=== PATIENT | female | born 1940 | race Caucasian/White ===

== ENCOUNTER → 2017-06-09 10:55 | Outpatient (CLI) | payer MEDICARE, SELFPAY | PROVIDERS: Family Provider Internal Medicine; PCP Internal Medicine; Visit Provider Physician Assistant Medical | DX: R00.1 Bradycardia, unspecified (principal); R42 Dizziness and giddiness; I48.91 Unspecified atrial fibrillation | CPT/HCPCS: 93225; 93226 ==

== ENCOUNTER → 2017-06-15 06:12 | Outpatient (CLI) | payer MEDICARE, SELFPAY ==
--- NOTE | 2017-06-15 09:22 | STRESSREP ---
Stress Test Report Pharmacologic myocardial perfusion stress test. 76-year-old lady with a history of chest pain and fatigue. Stress protocol: Resting EKG demonstrates sinus bradycardia with a rate of 41 bpm. Resting blood pressure is 160/86 centimeters of mercury. 0.4 mg of regadenoson was infused per usual protocol followed by rapid intravenous saline flush injection. Continuous EKG monitoring was performed. The maximum heart rate attained was 53 bpm which was 36% of the maximum predicted heart rate. The maximum workload was 1 metabolic equivalent. The patient maintained sinus rhythm throughout the recording. The resting blood pressure is 160/86 with a final blood pressure 130/68 mmHg. Myocardial perfusion protocol: 11.5 mCi of technetium 99m sestamibi was injected at rest. 0.4 mg of regadenoson was infused per usual protocol. At peak infusion 33.3 mCi of technetium 99m sestamibi was injected. Stress images were obtained. Stress and rest images were reconstructed and compared in the short axis vertical long and horizontal long axis. Gated images were also obtained. Perfusion SPECT analysis: Review of the stress images demonstrate normal uptake of tracer noted in all areas of the myocardium. The resting images similarly demonstrate normal uptake of tracer noted in all areas of the myocardium. No areas of reversibility are noted suggest ischemia no previous infarct is noted. Gated SPECT analysis: Gated ejection fraction is noted to be 68%. Conclusion: Normal pharmacologic myocardial perfusion stress test. Preserved ejection fraction
== END ==
PROVIDERS: Family Provider Internal Medicine; PCP Internal Medicine; Visit Provider Physician Assistant Medical
DX: I10 Essential (primary) hypertension (principal); R53.83 Other fatigue; R06.09 Other forms of dyspnea; I48.0 Paroxysmal atrial fibrillation
CPT/HCPCS: 78452; 93017; A9500; A4216; J2785

== ENCOUNTER → 2017-06-21 14:47 | Outpatient (CLI) | payer MEDICARE, SELFPAY ==
[2017-06-21 15:02] LABS: Bacteria 0 SEEN /hpf (None Seen); Mucous, Urine 0 SEEN /hpf (<or=2+); Red Blood Cells-Urine 0 SEEN /hpf (0-5)
[2017-06-21 16:22] LABS: Color, Urine Yellow (Yellow); Glucose, Dipstick Normal (Normal); Ketone-Dipstick Negative (Negative); Leukocyte Esterase-Dipstick 25 /ul (Negative); Nitrite-Dipstick Negative (Negative); Occult Blood-Urine Negative /ul (Negative); Protein-Dipstick Negative (Negative); Specific Gravity, Urine 1.015 (1.002-1.030); Urine Bilirubin Dipstick Negative (Negative); Urine Clarity Clear (Clear); Urine Urobilinogen Normal (Normal)
[2017-06-21 16:27] LABS: Hemoglobin 14.8 g/dl (12.0-15.0); Mean Corp Hgb Conc 33.6 g/gl (32-36); Mean Corpuscular Hgb 29.9 pg (27.0-32.0); Mean Corpuscular Volume 88.9 fL (81-99); Mean Platelet Vol. 10.5 fl (6.2-12.0); Platelet Count 171 K/mm3 (150-450); RBC Distribution Width CV 14.4 % (11.6-14.6); RBC Distribution Width SD 46.1 fl (35.1-43.9); Red Blood Count 4.95 M/mm3 (4.2-5.4); White Blood Count 7.2 K/mm3 (4.4-11.0)
[2017-06-21 16:31] LABS: Scan Indicated on CBC? Y/N NO
[2017-06-21 16:43] LABS: Squamous Epithelial Cells - UA 0-5 SEEN /hpf (5-10); White Blood Cells 0-5 SEEN /hpf (0-5)
[2017-06-21 16:53] LABS: Anion Gap 7 (5-15); BUN 20 mg/dL (7-18); BUN/Creat Ratio 22.9 RATIO (10-20); Chloride 104 mmol/L (98-107); Creatinine, Serum 0.87 mg/dL (0.55-1.02); EST Glomerular Filtration Rate 67 mL/min (>60); Est Glom Filt Rate - Afr Amer 81 mL/min (>60); Glucose 88 mg/dL (74-106); Potassium 3.9 mmol/L (3.5-5.1); Sodium Level 137 mmol/L (136-145)
[2017-06-21 17:00] LABS: Prothrombin Time (Protime)PT. 12.7 SECONDS (11.7-14.9)
== END ==
PROVIDERS: Family Provider Internal Medicine; PCP Internal Medicine; Visit Provider Internal Medicine Cardiovascular Disease
DX: I49.5 Sick sinus syndrome (principal)
CPT/HCPCS: 36415; 80048; 81001; 85027; 85610

== ENCOUNTER 2017-06-28 11:01 | Day surgery (SDC) | payer MEDICARE, SELFPAY ==
[2017-06-25 11:48] VITALS: BMI 29.4
[2017-06-28] VITALS (13 sets, daily range): BP systolic 124–188; BP diastolic 70–97; PULSE 60–64; RESP 16–18; TEMP 36.6–36.8; O2SAT 95–98
[2017-06-28] MEDS: Cefazolin 2 GM in 0.9% Normal Saline 100 ML IV (13:16)
--- NOTE | 2017-06-28 15:18 | CL.IE_ITS ---
Patient: MALI PATEL Study Date: 06/28/2017 Performing: Brennan Fleming MD : 1940 Age: 76 Gender: female PROCEDURES PERFORMED [id number] PACER INSERT+DUAL LEADS INDICATIONS Sinoatrial node dysfunction/Sick sinus syndrome Atrial fibrillation PROCEDURE DETAILS The patient was brought to the Catheterization Lab in the postabsorptive nonsedated state. Informed consent was obtained prior to the procedure. Local anesthetic was given subcutaneously to the left up per chest area with Lidocaine 2%. Incision was made to the left upper chest. Access was achieved and a guidewire was advanced into the left subclavian vein. A peel-away sheath was inserted into the left subclavian vein. PPM ventricular lead was inserted / positioned to right ventricular septal wall. A peel-away sheath was inserted into the left subclavian vein. PPM atrial lead was inserted / positione d to the right atrial appendage. PPM atrial lead testing performed. The Ventricular PM lead sutured i n place with 3-0 Silk. The Atrial lead sutured in place with 3-0 Silk. Device pocket was irrigated wi th antibiotic. PPM generator was attached to the lead(s) and inserted into the pocket. Subcutaneous c losure was completed with 4-0 Vicryl. Steri-strips applied to left subclavicular incision. Pressure d ressing applied to left chest. Instrument, sponge, and needle counts were noted to be normal. The pat ient tolerated the procedure well. Estimated Blood Loss: < 10 mls IMPLANTED / EX-PLANTED DEVICES IMPLANTED DEVICE(S): PPM Atrial lead - Dipper Machine Operator: Medtronic, Model # 5076-45 , Serial # [id number] PPM Ventricular lead - Dipper Machine Operator: [employer], Model # 5076-52 , Serial # [id number] PPM Generator - Dipper Machine Operator: [employer], Model # [id number] , Serial # [id number] DEVICE PARAMETERS ATRIAL LEAD PARAMETERS: P wave (mV) - 3 Current (mA) - 2.1 threshold (V) - 1.0 impedence (OHMS) - 563 VENTRICULAR LEAD PARAMETERS: R wave (mV) - 15.4 current (mA) - 1.0 threshold (V) - 1.1 impedence (OHMS) - 1244 DEVICE PARAMETERS: Mode - aair dddr lower rate - 60 upper rate - 130 CONCLUSIONS / RECOMMENDATIONS Device Conclusions: Successful implantation of a dual chamber pacemaker Device Recommendations: Follow up with Primary Care Physician PROCEDURE MEDICATIONS Versed 1 mg IV Fentanyl 25 mcg IV Fentanyl 25 mcg IV Fentanyl 25 mcg IV Antibiotic given in appropriate timeframe. Ancef 2 Gm IV @ 06/28/2017 13:16:41 Signed By Brennan Fleming MD On 06/28/2017 15:18:10 Brennan Fleming MD
[2017-06-28] MEDS: HYDROCHLOROTHIAZIDE 12.5 MG CAPSULE PO (16:09)
[2017-06-28] MEDS: Acetaminophen 325 MG Tablet 650 MG PO (19:01)
[2017-06-28] MEDS: Magnesium Oxide 400 MG Tablet PO (21:02)
[2017-06-28] MEDS: Flecainide 100 MG Tablet PO (21:03)
[2017-06-28] MEDS: Losartan Potassium 100 MG Tablet PO (21:03)
[2017-06-29] VITALS (7 sets, daily range): BP systolic 144–157; BP diastolic 72–79; PULSE 60–61; RESP 16; TEMP 36.4–36.6; O2SAT 94–99
[2017-06-29] MEDS: Acetaminophen 325 MG Tablet 650 MG PO ×2 (01:44→08:43)
--- NOTE | 2017-06-29 05:55 | RAD_ITS ---
STUDY: X-RAY CHEST REASON FOR EXAM: Female, 76 years old. Pacemaker placement TECHNIQUE: PA and lateral COMPARISON: 04/28/2017 FINDINGS: Pacemaker leads are in proper position. The lungs are clear and expanded. There is no demonstrated pleural abnormality. Normal size heart. Normal mediastinum and glenys. Normal visualized pulmonary arteries. Normal visualized aortic arch and descending thoracic aorta. Normal visualized thoracic spine. Normal visualized ribs, clavicles, and shoulders. There is no demonstrated abnormality of the visualized soft tissue structures of the upper abdomen. RAD/Chest PA and Lateral IMPRESSION: Pacemaker leads are in proper position. There is NO pneumothorax. Electronically Signed: Liam Arreaga MD at 7:08 EDT , Service support ,
--- NOTE | 2017-06-29 05:55 | RAD_ITS ---
STUDY: X-RAY CHEST REASON FOR EXAM: Female, 76 years old. Pacemaker insertion TECHNIQUE: Single frontal view COMPARISON: 06/29/2017 FINDINGS: Pacemaker leads are in proper position. The lungs are clear and expanded. There is no demonstrated pleural abnormality. Normal size heart. Normal mediastinum and glenys. Normal visualized pulmonary arteries. Normal visualized aortic arch and descending thoracic aorta. Normal visualized thoracic spine. Normal visualized ribs, clavicles, and shoulders. There is no demonstrated abnormality of the visualized soft tissue structures of the upper abdomen. RAD/Chest 1 View IMPRESSION: Pacemaker leads are in proper position. There is NO pneumothorax. Electronically Signed: Liam Arreaga MD at 6:53 EDT , Service support ,
--- NOTE | 2017-06-29 07:39 | PCM.PN.CARD ---
Subjectve: The patient was seen and evaluated. She appears doing well other than occasional back pain. Objective: Vital Signs Temp Pulse Resp BP Pulse Ox 97.9 F 61 16 148/79 H 99 06/29/17 03:20 06/29/17 03:20 06/29/17 03:20 06/29/17 03:20 06/29/17 03:20 Oxygen Delivery Method Room Air Weight: 161 lb Body Mass Index (BMI) 29.4 Intake and Output for Last 24 Hours 06/27/17 06/28/17 06/29/17 23:59 23:59 23:59 Intake Total 120 / 120 120 / 120 Balance 120 / 120 120 / 120 General: Awake, Alert, Oriented x 3 HEENT: PERRL, EOMI, Sclera Non Icteric Neck: Supple, Good ROM, No Lymph Node Enlargement Lungs: Clear to auscultation Cardiovascular: Regular Rhythm, Normal S1, Normal S2, No Murmurs, No Rubs, No Gallops Vascular: No Carotid Bruits, Normal Femoral Pulses, Normal Radial Pulses, Normal Dorsalis Pedal Pulse, Normal Posterior Tibial Pulses Abdomen: Bowel Sounds Present, Soft, Non Tender, No HSM, No Organomegaly Extremities: No Cyanosis, No Clubbing, No edema Neurological: No Focal Motor or Sensory Deficit Rhythm: AV sequential pacing CXR: No pneumothorax noted Assessment/Plan 1. Status post dual-chamber pacemaker placement. The pacemaker wound appears to be intact with no significant bleeding or hematoma. The chest x-ray does not demonstrate any evidence of pneumothorax and the leads are in good position. The pacemaker will be interrogated this morning and if it is noted to be functioning well the patient will be discharged for outpatient follow-up.
[2017-06-29] MEDS: HYDROCHLOROTHIAZIDE 12.5 MG CAPSULE PO (08:45)
[2017-06-29] MEDS: Metoprolol Tartrate 25 MG Tablet 12.5 MG PO (08:45)
[2017-06-29] MEDS: Flecainide 100 MG Tablet PO (08:45)
[2017-06-29] MEDS: Magnesium Oxide 400 MG Tablet PO (08:45)
--- NOTE | 2017-06-29 08:54 | PCM.PACRNU ---
Pacer Nurse Hospital Visit Notes: Dual Chamber Pacemaker Evaluation: 1st day post PPM implant check completed at bedside PCU #[id number]. Interrogation shows no AT/AF or VT episodes since implant. Left pectoral pocket/incision DSD intact w/o drainage or hematoma noted. Presenting rhythm shows AAI pacing @ 60 ppm. SNOW SHOVELER=<0.1%. Lead impedances, sensing and pace/sense thresholds stable. No parameter changes made. Counters cleared. Wound check appt scheduled for 07/06/17 @ 2:30. Wound care instructions, left arm restrictions, and f/u appt given to patient. Florentin Johnson RN - Pacer Check Procedure Procedures: [id number] PM Eval Dual
--- NOTE | 2017-06-29 10:42 | PCM.DC.PACE ---
Discharge Diet: No Restrictions Discharge Activity: Return to Normal Activity - as you feel able. No excessive stretching. No lifting your arm over your head (keep elbow below shoulder level) until seen for your pacemaker check. Do not lift your elbow away from your side until you are seen for your first visit. Keep the arm sling on if it helps remind you not to lift your arm. Additional Activity Instructions:: May shower or bathe on []. Do not scrub the incision or soak in the tub. Just wash with soap and let the water run over the incision. Gently pat dry with towel. Medications: Take your pain medication as directed. Refer to your discharge instruction sheet for a list of medications you are to take. Call your doctor if your incision/area has: Continuous Slow Oozing, Sudden Increased Bleeding, Increased Pain/ Swelling, Increased Redness, Foul Smelling Discharge, Swelling at the incision site Call your doctor if you observe: Fever of 101 or Higher, Shortness of breath, Dizziness, Fainting spells, Swelling in the ankles, Chest pain, Prolonged hiccoughing, Increased palpitations (irregular heartbeat) Additional Dressing/Incision Instructions:: When dressing is removed, wash and dry incision. Keep covered with a light bandage if it is rubbing against your clothing. Do not cover the incision with an airtight bandage. Change the bandage daily. Do not remove steri strips. The strips will fall off on their own. Additional Instructions: Signs and Symptoms to Report to Your Doctor at Once - call your doctor's office or Doctor's Registry ([phone]) Call 911 or go to the nearest Emergency Department if you feel you need urgent care. *Infection (fever, increased redness or swelling at the incision site, drainage from the incision increased pain at the pacemaker site) *Shortness of breath *Dizziness *Fainting spells *Swelling in the ankles *Chest pain *Prolonged hiccoughing *Increased palpitaitons (irregular heartbeat) Medications: Take your pain medication as directed. Refer to your discharge instruction sheet for a list of medications you are to take. Allergies/Adverse Reactions: Allergies methocarbamol [From Robaxin] Allergy (Verified 06/28/17 11:20) Other procaine HCl [From Novocain] Allergy (Verified 06/28/17 11:20) Other Medications to take at Discharge Calcium Carbonate [Calcium] 1,000 mg PO DAILY 12/16/14 Cholecalciferol (VIT D3) [Vitamin D] 1,000 unit PO DAILY 12/16/14 Flecainide [Tambocor] 100 mg PO BID 12/16/14 Minocycline [Minocin] 100 mg PO DAILY 12/16/14 Potassium Chloride [K-Dur] 20 meq PO BID 12/16/14 magnesium oxide 400 mg tablet 400 mg PO BID #180 tab 05/28/17 hydrochlorothiazide 12.5 mg capsule 12.5 mg PO QDAY cap 06/02/17 levomefolate calcium 7.5 mg tablet 7.5 mg PO QDAY 06/08/17 losartan 100 mg tablet 100 mg PO DAILY #30 tab 06/08/17 metoprolol tartrate 25 mg tablet 12.5 mg PO DAILY 06/08/17 [place]-3 Fatty Acids/Fish Oil [Fish Oil 1,000 mg Capsule] 1 each PO DAILY 06/28/17 Primary Care Physician: Diana Saravia MD [Primary Care Provider] - When: pacer nurse
--- NOTE | 2017-06-29 10:50 | DCINST_ITS ---
Discharge Diet: No Restrictions Discharge Activity: Return to Normal Activity - as you feel able. No excessive stretching. No lifting your arm over your head (keep elbow below shoulder level ) until seen for your pacemaker check. Do not lift your elbow away from your side until you are seen for your first visit. Keep the arm sling on if it helps remind you not to lift your arm. Additional Activity Instructions:: May shower or bathe on []. Do not scrub the incision or soak in the tub. Just wash with soap and let the water run over the incision. Gently pat dry with towel. Medications: Take your pain medication as directed. Refer to your discharge instruction sheet for a list of medications you are to take. Call your doctor if your incision/area has: Continuous Slow Oozing, Sudden Increased Bleeding, Increased Pain/ Swelling, Increased Redness, Foul Smelling Discharge, Swelling at the incision site Call your doctor if you observe: Fever of 101 or Higher, Shortness of breath, Dizziness, Fainting spells, Swelling in the ankles, Chest pain, Prolonged hiccoughing, Increased palpitations (irregular heartbeat) Additional Dressing/Incision Instructions:: When dressing is removed, wash and dry incision. Keep covered with a light bandage if it is rubbing against your clothing. Do not cover the incision with an airtight bandage. Change the bandage daily. Do not remove steri strips. The strips will fall off on their own. Additional Instructions: Signs and Symptoms to Report to Your Doctor at Once - call your doctor's office or Doctor's Registry ([phone]) Call 911 or go to the nearest Emergency Department if you feel you need urgent care. *Infection (fever, increased redness or swelling at the incision site, drainage from the incision increased pain at the pacemaker site) *Shortness of breath *Dizziness *Fainting spells *Swelling in the ankles *Chest pain *Prolonged hiccoughing *Increased palpitaitons (irregular heartbeat) Medications: Take your pain medication as directed. Refer to your discharge instruction sheet for a list of medications you are to take. Allergies/Adverse Reactions: Allergies methocarbamol [From Robaxin] Allergy (Verified 06/28/17 11:20) Other procaine HCl [From Novocain] Allergy (Verified 06/28/17 11:20) Other Medications to take at Discharge Calcium Carbonate [Calcium] 1,000 mg PO DAILY 12/16/14 Cholecalciferol (VIT D3) [Vitamin D] 1,000 unit PO DAILY 12/16/14 Flecainide [Tambocor] 100 mg PO BID 12/16/14 Minocycline [Minocin] 100 mg PO DAILY 12/16/14 Potassium Chloride [K-Dur] 20 meq PO BID 12/16/14 magnesium oxide 400 mg tablet 400 mg PO BID #180 tab 05/28/17 hydrochlorothiazide 12.5 mg capsule 12.5 mg PO QDAY cap 06/02/17 levomefolate calcium 7.5 mg tablet 7.5 mg PO QDAY 06/08/17 losartan 100 mg tablet 100 mg PO DAILY #30 tab 06/08/17 metoprolol tartrate 25 mg tablet 12.5 mg PO DAILY 06/08/17 [place]-3 Fatty Acids/Fish Oil [Fish Oil 1,000 mg Capsule] 1 each PO DAILY Primary Care Physician: Diana Saravia MD [Primary Care Provider] - When: pacer nurse
== END 2017-06-29 10:49 | disposition home or self-care (01) ==
LOC: CLSP 11:02 → PCU 15:27
PROVIDERS: Family Provider Internal Medicine; PCP Internal Medicine; Visit Provider Internal Medicine Cardiovascular Disease
DX: I49.5 Sick sinus syndrome (principal); I47.1 Supraventricular tachycardia; I49.1 Atrial premature depolarization; I10 Essential (primary) hypertension; E78.2 Mixed hyperlipidemia; E87.6 Hypokalemia; I48.0 Paroxysmal atrial fibrillation; I34.1 Nonrheumatic mitral (valve) prolapse; Z87.891 Personal history of nicotine dependence; Z79.82 Long term (current) use of aspirin; Z79.899 Other long term (current) drug therapy
CPT/HCPCS: 33208; 71045; 71046; 99152; 99153; J3010; J7040; J7050; C1894

== ENCOUNTER → 2017-07-30 15:17 | Outpatient (CLI) | payer MEDICARE, SELFPAY ==
[2017-07-30 15:45] LABS: Absolute Lymphocyte Count 2.02 X10^3/ul (0.83-4.51); Absolute Neutrophil Count 6.6 X10^3/uL (2.0-7.7); Basophil# 0.04 X10^3/uL; Basophil% 0.4 % (0-1); Eosinophil# 0.35 X10^3/uL; Eosinophils% 3.5 % (0-5); Hematocrit 40.8 % (37-47); Hemoglobin 14.1 g/dl (12.0-15.0); Lymphocyte # 2.02 X10^3/ul (4.0); Lymphocyte % 20.3 % (19-41); Mean Corp Hgb Conc 34.6 g/gl (32-36); Mean Corpuscular Hgb 29.8 pg (27.0-32.0); Mean Corpuscular Volume 86.3 fL (81-99); Mean Platelet Vol. 10.4 fl (6.2-12.0); Monocyte# 0.93 X10^3/uL; Monocyte% 9.3 % (0-10); Neutrophil # 6.59 X10^3/uL (2.7-7.7); Neutrophil % 66.3 % (47-70); Platelet Count 225 K/mm3 (150-450); RBC Distribution Width CV 13.6 % (11.6-14.6); RBC Distribution Width SD 42.3 fl (35.1-43.9); Red Blood Count 4.73 M/mm3 (4.2-5.4)
[2017-07-30 15:49] LABS: POSITIVE COUNT NO; POSITIVE DIFFERENTIAL NO; POSITIVE MORPHOLOGY NO
[2017-07-30 16:04] LABS: Anion Gap 10 (5-15); BUN 10 mg/dL (7-18); BUN/Creat Ratio 10.6 RATIO (10-20); Calcium,Total 8.9 mg/dL (8.5-10.1); Chloride 101 mmol/L (98-107); Creatinine, Serum 0.94 mg/dL (0.55-1.02); EST Glomerular Filtration Rate 61 mL/min (>60); Est Glom Filt Rate - Afr Amer 74 mL/min (>60); Glucose 106 mg/dL (74-106); Potassium 3.8 mmol/L (3.5-5.1); Sodium Level 138 mmol/L (136-145)
[2017-07-30 16:11] LABS: Erythrocyte Sedimentation Rate 26 mm/hr (0-30)
== END ==
PROVIDERS: Family Provider Internal Medicine; PCP Internal Medicine; Visit Provider Internal Medicine
DX: R10.9 Unspecified abdominal pain (principal)
CPT/HCPCS: 80048; 85025; 85652

== ENCOUNTER → 2017-12-16 12:33 | Outpatient (CLI) | payer MEDICARE, SELFPAY ==
[2017-12-16 13:00] VITALS: BP 145/58; PULSE 64; RESP 16; TEMP 36.5; O2SAT 97; BMI 29.0
--- NOTE | 2017-12-16 18:43 | CA.SCORE ---
Calcium Scoring Date of Study:: 12/16/17 Coronary Calcium Scoring: Coronary calcium score: 307 Conclusion: Coronary calcium score: 307 Results: The patient underwent high resolution CT imaging of the chest on 12/16/2017 with particular attention to the coronary arteries. The images were analyzed for the presence and extent of coronary artery calcification using coronary calcium quantification software. The patient was reported as tolerating the procedure well with no adverse events. The coronary calcium score was reported at 307 with the coronary calcium score coming from the left coronary artery system. The right coronary artery system could not be scored secondary to artifact related to the patient's underlying permanent pacemaker. A coronary calcium score of 307, based upon pre-published reference tables, would be indicative of the concern of moderate plaque burden with moderate nonobstructive coronary artery disease being considered highly likely. Impression: Coronary calcium score: 307 This note was generated with [employer] dictation software. It may contain incorrect words, spelling, and punctuation that were not noted in checking the note before signing.
== END ==
PROVIDERS: Family Provider Internal Medicine; PCP Internal Medicine; Visit Provider Internal Medicine
DX: E78.00 Pure hypercholesterolemia, unspecified (principal); I48.91 Unspecified atrial fibrillation; I65.29 Occlusion and stenosis of unspecified carotid artery
CPT/HCPCS: 75571; 76380

== ENCOUNTER 2018-01-12 15:30 | Outpatient (RCR) | payer MEDICARE, SELFPAY | END 2018-01-16 23:59 | LOC: NS 15:30 | PROVIDERS: Family Provider Internal Medicine; PCP Internal Medicine; Visit Provider Internal Medicine | DX: E78.1 Pure hyperglyceridemia (principal); E66.9 Obesity, unspecified; Z68.29 Body mass index [BMI] 29.0-29.9, adult; Z71.3 Dietary counseling and surveillance | CPT/HCPCS: 97802; 97803 ==

== ENCOUNTER 2018-02-08 14:00 | Outpatient (RCR) | payer MEDICARE, SELFPAY | END 2018-02-16 23:59 | LOC: NS 14:00 | PROVIDERS: Family Provider Internal Medicine; PCP Internal Medicine; Visit Provider Internal Medicine | DX: E78.1 Pure hyperglyceridemia (principal); E66.9 Obesity, unspecified; Z68.29 Body mass index [BMI] 29.0-29.9, adult; Z71.3 Dietary counseling and surveillance | CPT/HCPCS: 97803 ==

== ENCOUNTER 2018-04-04 15:44 | Outpatient (RCR) | payer MEDICARE, SELFPAY ==
--- OUTSIDE RECORDS SUMMARY | 2018-07-07 08:19 | XMS RPT_ITS | Continuity of Care Document ---
:1940 Author Organization [facility] Address [address] [facility] [address] [place] [address] Phone Care Team Providers Name Role Phone Manjit NUNEZ, Diana Nicole Unavailable Gunner Sarah Unavailable Dr. Naga Ribeiro Unavailable Hannah NUNEZ, Manoj Pandey Unavailable SAMI Orta Unavailable Unavailable Unavailable Unavailable Problems Name Dates Details Abnormal glucose level (R73.09, 790.29) Comments: now 5.8 Status: Active Afib (I48.91, 427.31) Comments: on flecanimide. see cardiology. not need anticoag. stable. stress and echo good 2013. stable reviewed with patient specialist's note Status: Active Allergic rhinitis (J30.9, 477.9) Status: Active Atherosclerosis of arteries (I70.8, 440.8) Comments: seen on ct scan aorta arteries. no CAD signs and symptoms. 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 no nsaids or etoh. hep abc good. labs 2017 neg but ferritin up only slight. only use nsaids prn check hga1c. lipid up and not able to take meds. slightly elvated. . better but slight. Status: Active Encounter for routine adult medical exam with abnormal findings (Z00.01, V70.0) Comments: AMP 09-03 [facility] 01-19-17 reviewed with patient all questions. no more pap at her age. mammo 03-05 colonoscopy 2005 refuse repeat so did cologuard neg, immunizations are up to date except for Kulwant s, last eye exam was with Dr. 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 looked into surgery to remove toes and at this point not want to do. may not help pain. with shoes help. did PT balance training. exercise help everytime falls it is because the toe box is flimsy and catch. she has brace for left knee and getting firm new shoes so not trip Status: Active History of tobacco abuse (Z87.891, V15.82) Status: Active Hypercholesteremia (E78.00, 272.0) Comments: .not able to take statin, tricor, berberine, tumeric and coenzyme q10 tried water soluble statin pravachol. tried tricor and welchol. talk to her about PKSC-9 but at this point cost rachelle k to her abo ut lovaza. knows about diet, will try flaxseed 12-28-17 patient approved for Repatha 140mg/ml inject SC q 2 weeks Status: Active Hypertensive left ventricular hypertrophy (I11.9, 402.90) Comments: better than was at home still some 150-160 at home. watch K because in past 25 mg HCTZ watching salt. if water pill not enough or issues K lowering then consider procardia instead Status: Active Hypertriglyceridemia (E78.1, 272.1) Status: Active Immunosuppression (D89.9, 279.9) Comments: due to RA drugs Status: Active Mitral valve prolapse (I34.1, 424.0) Status: Active MTHFR mutation (E72.12, 270.4) Comments: folate acid and vitamin B Status: Active Nonsmoker (Z78.9, V49.89) Status: Active Osteoarthritis of left hip, unspecified osteoarthritis type (M16.12, 715.95) Status: Active Osteopenia (M85.80, 733.90) Comments: 8-16 -1.3 hip, 8-16 mild better Status: Active Pacemaker (Z95.0, V45.01) Comments: use 94% of time.dual pacer. Status: Active 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 (R29.818, 796.4) Comments: restarting balance exercise and pilates. with bad feet using cane recommended. may need foot surgery Status: Active Pregnancies () Comments: 4 Status: Active Rheumatoid arthritis (M06.9, 714.0) Comments: off orencia. off prednisone. did better on minocycline daily in joints an less infections she like orenciaBD 02-28 good Status: Active Sinusitis, chronic (J32.9, 473.9) Comments: had sinus surgery sonny 2010. help alot at this point no infection with immunosupp had 2 courses of ATB recently still drainage chronicioc will get claritin without D. Status: Active Medications Name Dates Details Aspirin Adult Low Dose 81 MG Oral Tablet Delayed Release 1 (one) Tablet DR Tablet DR in am for 0 days Quantity: 30 {Tablet} Refills: 0 Ordered:10-Feb-2016 Bryant Montana Start : 31-Jan-2016 Active FLECAINIDE ACETATE, 100MG (Oral Tablet) 1 bid (100 MG) Active HydroCHLOROthiazide 12.5 MG Oral Tablet 1 (one) Tablet in am for 0 days Quantity: 30 {Tablet} Refills: 6 Ordered:27-Jan-2018 Manjit NUNEZ, Diana Burris MD, Diana Nicole Start : 27-Jan-2018 Active Klor-Con M20 20 MEQ Oral Tablet Extended Release 2 (two) Tablet ER qd for 0 days Quantity: 180 {Tablet} Refills: 3 Ordered:29-Jun-2017 Diana Troncoso MD, MD, Dana M Start : 29-Jun-2017 Active S-Xdfpopzyrfwz-Ypwkp 7.5-90.314 MG Oral Capsule 1 (one) Capsule in am for 0 days Quantity: 30 {Capsule} Refills: 6 Ordered:18-Nov-2017 Diana Troncoso MD, MD, Dana M Start : 18-Nov-2017 End : 19-Nov-2016 Active Losartan Potassium 100 MG Oral Tablet 1 Tablet daily for 0 days Quantity: 30 {Tablet} Refills: 6 Ordered:15-Nov-2017 Diana Troncoso MD, MD, Dana M Start : 15-Nov-2017 Active MAGNESIUM OXIDE, 400 (241.3 Mg)MG (Oral Tablet) 2 (two) Tablet qd for 0 days Quantity: 60 {Tablet} Refills: 0 Ordered:28-Feb-2014 Diana Troncoso MD, MD, Dana M Start : 28-Feb-2014 Active Metoprolol Tartrate 25 MG Oral Tablet 1/2 Tablet qd for 0 days Quantity: 45 {Tablet} Refills: 3 Ordered:09-Feb-2018 Diana Troncoso MD, MD, Dana M Start : 09-Feb-2018 Active Minocycline HCl 100 MG Oral Tablet 1 Tablet qd for 0 days Quantity: 30 {Tablet} Refills: 5 Ordered:25-Oct-2017 Diana Troncoso MD, MD, Dana M Start : 25-Oct-2017 Active MULTI-DAY (Oral Tablet) 1 qd Active Repatha SureClick 140 MG/ML Subcutaneous Solution Auto-injector 1 (one) Milliliter q 2 weeks for 0 days Quantity: 2 {Pre-filled_Pen_Syringe} Refills: 6 Ordered:28-Dec-2017 Diana Troncoso MD, MD, Dana M Start : 28-Dec-2017 Active Comments:12-28-17 patient has been approved from through 12-24-2020 getting through [facility] Vitamin B Complex Oral Tablet 1 (one) Tablet Tablet daily for 0 days Quantity: 30 {Tablet} Refills: 0 Ordered:19-Jan-2017 SAMI Orta Start : 19-Nov-2016 Active VITAMIN D3 HIGH POTENCY, 1000UNIT (Oral Capsule) 1 qd (1000 UNIT) Active Albuterol Sulfate (2.5 MG/3ML) 0.083% Inhalation Nebulization Solution 1 (one) Milliliter x1 for 0 days Quantity: 1 {Nebule} Refills: 0 Ordered:04-May-2017 SAMI Orta Start : 28-Apr-2017 End : 04-May-2017 Inactive Amoxicillin-Pot Clavulanate 875-125 MG Oral Tablet 1 (one) Tablet Tablet bid for 10 days Quantity: 20 {Tablet} Refills: 0 Ordered:26-Jul-2017 Diana Troncoso MD, MD, Diana Nicole Start : 26-Jul-2017 End : 05-Aug-2017 Inactive Ativan 0.5 MG Oral Tablet 1 Tablet qd prn flying for 0 days Quantity: 10 {Tablet} Refills: 0 Ordered:04-May-2017 SAMI Orta Start : 19-Jan-2017 End : 04-May-2017 Inactive Comments:ten Augmentin 875-125 MG Oral Tablet 1 (one) Tablet Tablet bid for 0 days Quantity: 20 {Tablet} Refills: 0 Ordered:20-May-2017 SAMI Orta Start : 04-May-2017 End : 20-May-2017 Inactive AZITHROMYCIN, 500MG (Oral Tablet) 1 Tablet qd for 0 days Quantity: 21 {Tablet} Refills: 0 Ordered:17-Apr-2010 Danisha Dawson LPN Start : 10-Mar-2010 End : 17-Apr-2010 Inactive BACTROBAN NASAL, 2% (Nasal Ointment) 1 (one) Ointment bID for 0 days Refills: 0 Ordered:05-Jul-2007 SAMI Orta Start : 05-Jul-2007 End : 04-May-2008 Inactive Berberine Complex 200-200-50 MG Oral Capsule 1 (one) Capsule Capsule bid for 0 days Quantity: 60 {Capsule} Refills: 0 Ordered:08-Jul-2017 SAMI Orta Start : 04-May-2016 End : 08-Jul-2017 Inactive BIAXIN XL PAC, 500MG (Oral Tablet Extended Release 24 Hour) 2 (two) Tablet ER 24HR daily for 14 days Quantity: 28 Refills: 0 Ordered:21-Jul-2010 Danisha Dawson LPN Start : 21-Jul-2010 End : 04-Aug-2010 Inactive Cefdinir 300 MG Oral Capsule 1 Capsule bid for 0 days Quantity: 20 {Capsule} Refills: 0 Ordered:13-Jul-2016 SAMI Orta Start : 26-Jun-2016 End : 13-Jul-2016 Inactive CEFTIN, 500MG (Oral Tablet) 1 Tablet bid for 0 days Quantity: 42 {Tablet} Refills: 0 Ordered:17-Apr-2010 Samir MATHEW Danisha Start : 10-Mar-2010 End : 17-Apr-2010 Inactive CELEBREX, 200MG (Oral Capsule) daily (200 MG) Inactive CHERATUSSIN AC, 100-10MG/5ML (Oral Syrup) 1 Teaspoon(s) qhs prn cough for 0 days Quantity: 6 {Ounce(s)} Refills: 0 Ordered:10-Mar-2010 Shayy Orozco LPN Start : 24-Feb-2010 End : 10-Mar-2010 Inactive Cipro 500 MG Oral Tablet 1 Tablet bid for 14 days Quantity: 28 {Tablet} Refills: 0 Ordered:18-May-2017 Diana Troncoso MD, MD, Dana M Start : 18-May-2017 End : 18-May-2017 Inactive Comments:interacts with flecanide COLESTID, 1GM (Oral Tablet) 5 Tablet Tablet bid with meals not with medication for 0 days Quantity: 300 {Tablet} Refills: 5 Ordered:10-Sep-2015 Diana Troncoso MD, MD, Dana M Start : 10-Sep-2015 End : 10-Sep-2015 Inactive Comments:bowel issues Curcumin Extract Powder 1 (one) Powder Powder 500 mg twice a day for 0 days Quantity: 60 {Each} Refills: 0 Ordered:08-Jul-2017 SAMI Orta Start : 04-May-2016 End : 08-Jul-2017 Inactive D 1000, 1000UNIT (Oral Capsule) 1 qd for 0 days Refills: 0 Ordered:05-Jan-2013 Shayy Orozco LPN End : 05-Jan-2013 Inactive DULERA, 200-5MCG/ACT (Inhalation Aerosol) 1 (one) Aerosol Aerosol bid for 0 days Quantity: 1 {Each} Refills: 0 Ordered:21-Dec-2014 SAMI Orta Start : 03-Jul-2014 End : 21-Dec-2014 Inactive ENBREL, 25MG (Subcutaneous Kit) Twice weekly for 0 days Refills: 0 Ordered:22-May-2010 SAMI Orta End : 22-May-2010 Inactive FISH OIL MAXIMUM STRENGTH, 1200MG (Oral Capsule) 1 qd for 0 days Refills: 0 Ordered:05-Jan-2013 Shayy Orozco LPN End : 05-Jan-2013 Inactive Flagyl 500 MG Oral Tablet 1 (one) Tablet every 6 hours for 10 days for 0 days Quantity: 40 {Tablet} Refills: 0 Ordered:31-Aug-2017 SAMI Orta Start : 30-Jul-2017 End : 31-Aug-2017 Inactive Fluconazole 150 MG Oral Tablet uad Tablet Tablet 1 today and may repeat in 2-3 days if not gone for 0 days Quantity: 2 {Tablet} Refills: 0 Ordered:21-Sep-2016 SAMI Orta Start : 21-Sep-2016 End : 21-Sep-2016 Inactive Folic Acid 1 MG Oral Tablet 2 (two) Tablet Tablet in am for 0 days Quantity: 60 {Tablet} Refills: 0 Ordered:08-Jul-2017 SAMI Orta Start : 19-Nov-2016 End : 08-Jul-2017 Inactive GUAIATUSSIN AC, 100-10MG/5ML (Oral Syrup) 1-2 Teaspoon(s) QID/PRN for 0 days Quantity: 6 {Ounce(s)} Refills: 0 Ordered:25-Jul-2009 SAMI Orta Start : 28-Mar-2009 Inactive HYZAAR, 100-25MG (Oral Tablet) 1 (one) Tablet qd for 0 days Quantity: 90 {Tablet} Refills: 3 Ordered:21-Apr-2013 Danisha Dawson LPN Start : 05-Jan-2013 End : 21-Apr-2013 Inactive KRILL OIL, 1000MG (Oral Capsule) 1 qd (1000 MG) Inactive LASIX, 20MG (Oral Tablet) 1 (one) Tablet daily x 3days for 0 days Quantity: 10 {Tablet} Refills: 0 Ordered:06-Jul-2007 SAMI Orta Start : 06-Jul-2007 End : 04-May-2008 Inactive LEVAQUIN, 500MG (Oral Tablet) 1 Tablet daily for 7 days Quantity: 7 {Tablet} Refills: 0 Ordered:24-Feb-2010 Jacquelyn Garcia CNP Start : 24-Feb-2010 End : 03-Mar-2010 Inactive LEVAQUIN, 500MG (Oral Tablet) 1 (one) Tablet daily for 14 days Quantity: 14 {Tablet} Refills: 0 Ordered:28-Mar-2009 Manjit NUNEZ, Diana Burris MD, Diana Nicole Start : 28-Mar-2009 End : 11-Apr-2009 Inactive Lopressor 50 MG Oral Tablet 1/2 (one half) Tablet QD for 0 days Quantity: 90 {Tablet} Refills: 1 Ordered:02-Jun-2016 SAMI Orta Start : 21-May-2016 End : 02-Jun-2016 Inactive Macrobid 100 MG Oral Capsule 1 (one) Capsule bid for 0 days Quantity: 20 {Capsule} Refills: 0 Ordered:29-Jun-2017 SAMI Orta Start : 20-May-2017 End : 29-Jun-2017 Inactive Comments:called to [facility] in [place], [id number] Medrol 4 MG Oral Tablet Therapy Pack 1 (one) Tab Ther Pack Tab Ther Pack uad for 0 days Quantity: 1 {Dose_Pack} Refills: 0 Ordered:21-Apr-2016 SAMI Orta Start : 12-Feb-2016 End : 21-Apr-2016 Inactive NASACORT ALLERGY 24HR, 55MCG/ACT (Nasal Aerosol) 1 (one) Aerosol Aerosol qd for 0 days Quantity: 1 {Each} Refills: 0 Ordered:21-Dec-2014 SAMI Orta Start : 03-Jul-2014 End : 21-Dec-2014 Inactive NASONEX, 50MCG/ACT (Nasal Suspension) 2 (two) Puff Puff daily for 0 days Quantity: 1 {Bottle} Refills: 0 Ordered:21-Dec-2014 SAMI Orta Start : 29-Jun-2014 End : 21-Dec-2014 Inactive Orabase 20 % Mouth/Throat Paste 1 (one) Paste apply on mouth ulcers daily for 0 days Quantity: 1 {Tube} Refills: 0 Ordered:21-Sep-2016 SAMI Orta Start : 21-Sep-2016 End : 21-Sep-2016 Inactive ORENCIA, 125MG/ML (Subcutaneous Solution Prefilled Syringe) uad Solution IV once monthly for 0 days Refills: 0 Ordered:09-May-2015 SAMI Orta Start : 23-Jan-2014 End : 09-May-2015 Inactive Comments:[facility] POTASSIUM CHLORIDE, 20MEQ (Oral Packet) 1 Packet tid for 0 days Quantity: 90 {Packet} Refills: 3 Ordered:13-Jul-2013 Diana Troncoso MD, MD, Dana M Start : 13-Jul-2013 End : 13-Jul-2013 Inactive Pravastatin Sodium 10 MG Oral Tablet 1 (one) Tablet three times a week for 0 days Quantity: 15 {Tablet} Refills: 5 Ordered:10-Dec-2017 Diana Troncoso MD, MD, Dana M Start : 10-Dec-2017 End : 10-Dec-2017 Inactive Comments:myalgia PredniSONE 10 MG Oral Tablet 3 (three) Tablet for 3 days 2 for 3 days 1 for 3 days withfood for 0 days Quantity: 18 {Tablet} Refills: 0 Ordered:06-Aug-2016 SAMI Orta Start : 26-Jun-2016 End : 06-Aug-2016 Inactive Comments:with food in am PREDNISONE, 5MG (Oral Tablet) 1 Tablet as needed for 1800 days Quantity: 90 {Tablet} Refills: 0 Ordered:13-Jul-2013 SAMI Orta Start : 21-Apr-2013 End : 13-Jul-2013 Inactive Comments:Medication taken as needed. PREDNISONE, 5MG (Oral Tablet) 1 Tablet TAD for 7 days Quantity: 30 {Tablet} Refills: 0 Ordered:07-Mar-2010 Shayy Orozco LPN Start : 07-Mar-2010 End : 14-Mar-2010 Inactive Comments:take 2 bid x 2days 3 x1 day 2 x 1 day PREDNISONE, 5MG (Oral Tablet) tad Tablet uad for 0 days Refills: 3 Ordered:21-Dec-2012 Danisha Dawson LPN Start : 29-Sep-2011 End : 21-Dec-2012 Inactive ProAir HFA 108 (90 Base) MCG/ACT Inhalation Aerosol Solution 2 (two) Puff tid for 0 days Quantity: 1 {Inhaler} Refills: 0 Ordered:29-Jun-2017 SAMI Orta Start : 28-Apr-2017 End : 29-Jun-2017 Inactive PROVENTIL HFA, 108 (90 Base)MCG/ACT (Inhalation Aerosol Solution) 2 (two) Puff(s) tid prn for 0 days Quantity: 1 {Aerosol_Soln} Refills: 0 Ordered:29-Sep-2011 Eduardo Bateman LPN Start : 12-Jun-2011 End : 29-Sep-2011 Inactive Pyridium 100 MG Oral Tablet 1 (one) Tablet tid prn for 0 days Quantity: 20 {Tablet} Refills: 0 Ordered:29-Jun-2017 SAMI Orta Start : 18-May-2017 End : 29-Jun-2017 Inactive Pyridium 200 MG Oral Tablet 1 (one) Tablet tid for 3-5 days for 0 days Quantity: 15 {Tablet} Refills: 0 Ordered:21-Sep-2016 SAMI Orta Start : 04-Sep-2016 End : 21-Sep-2016 Inactive Sulfamethoxazole-Trimethoprim 800-160 MG Oral Tablet 1 (one) Tablet bid for 0 days Quantity: 20 {Tablet} Refills: 0 Ordered:20-May-2017 SAMI Orta Start : 18-May-2017 End : 20-May-2017 Inactive Tamiflu 75 MG Oral Capsule 1 Capsule Capsule bid for 0 days Quantity: 10 {Capsule} Refills: 0 Ordered:29-Jun-2017 SAMI Orta Start : 13-May-2017 End : 29-Jun-2017 Inactive Triamcinolone Acetonide 0.1 % Mouth/Throat Paste uad Paste Paste apply to mouth ulcers qd as directed for 0 days Quantity: 5 {Gum} Refills: 0 Ordered:19-Jan-2017 SAMI Orta Start : 21-Sep-2016 End : 19-Jan-2017 Inactive TRICOR, 48MG (Oral Tablet) 1 Tablet qd for 0 days Quantity: 30 {Tablet} Refills: 4 Ordered:29-Sep-2011 Eduardo Bateman LPN Start : 21-May-2011 End : 29-Sep-2011 Inactive WELCHOL, 3.75GM (Oral Packet) 1 Packet daily for 0 days Quantity: 30 {Packet} Refills: 4 Ordered:20-Oct-2011 HlusRoxy levine LPN Start : 01-Oct-2011 End : 20-Oct-2011 Inactive ZITHROMAX Z-JESI, 250MG (Oral Tablet) 1 Tablet TAD for 0 days Quantity: 1 {Package(s)} Refills: 0 Ordered:29-Sep-2011 Eduardo Bateman LPN Start : 12-Jun-2011 End : 29-Sep-2011 Inactive ZOCOR, 20MG (Oral Tablet) 1 qd for 0 days Refills: 0 Ordered:24-Feb-2010 Danisha Dawson LPN End : 24-Feb-2010 Inactive AMLODIPINE BESYLATE, 5MG (Oral Tablet) 1 Tablet daily for 30 days Quantity: 30 {Tablet} Refills: 6 Ordered:29-Aug-2009 Danita Casas RN Start : 29-Aug-2009 End : 29-Aug-2009 Discontinued Comments:b/p not controlled Atorvastatin Calcium 10 MG Oral Tablet 1/2 (one half) Tablet at night for 0 days Quantity: 30 {Tablet} Refills: 4 Ordered:19-Nov-2016 Diana Troncoso MD, MD, Dana M Start : 19-Nov-2016 End : 19-Nov-2016 Discontinued BIAXIN XL PAC, 500MG (Oral Tablet Extended Release 24 Hour) 2 (two) Tablet ER 24HR daily for 10 days Quantity: 28 {Tablet_ER_24HR} Refills: 0 Ordered:10-Mar-2010 Katerine Campo DO Start : 10-Mar-2010 End : 10-Mar-2010 Discontinued CALCIUM + D, 223-713HU-LXOS (Oral Tablet) 2 qd for 0 days Refills: 0 Ordered:05-Jan-2013 Shayy Orozco LPN End : 05-Jan-2013 Discontinued Comments:This order discontinued per [facility]. CELEBREX, 200MG (Oral Capsule) 1 Capsule qd for 0 days Quantity: 90 {Capsule} Refills: 3 Ordered:06-Jun-2014 Nat Boyle LPN Start : 09-Apr-2014 End : 06-Jun-2014 Discontinued CHOLESTYRAMINE LIGHT, 4GM (Oral Packet) 1 Packet Bid for 30 days Quantity: 60 {Packet} Refills: 4 Ordered:09-May-2015 Diana Troncoso MD, MD, Dana M Start : 09-May-2015 End : 09-May-2015 Discontinued Comments:Take with meals and no medications with this product. K-DUR, 20MEQ (Oral Tablet Extended Release) 1 Tablet ER qd for 0 days Quantity: 90 {Tablet_ER} Refills: 3 Ordered:26-Aug-2009 SAMI Orta Start : 26-Aug-2009 End : 27-Feb-2010 Discontinued Comments:This order discontinued per [facility]. Levomefolate DHA 27-1.13-0.4 MG Oral Capsule 1 (one) Capsule Capsule qd for 0 days Quantity: 30 {Capsule} Refills: 0 Ordered:18-Nov-2017 Bonezzi MD, Diana Burris MD, Diana Nicole Start : 08-Jul-2017 End : 18-Nov-2017 Discontinued Comments:This order discontinued per [facility]. Orencia 250 MG Intravenous Solution Reconstituted uad q monthly (250 MG) End : 17-Jun-2016 Discontinued POTASSIUM CHLORIDE JARRED ER, 20MEQ (Oral Tablet Extended Release) 1 (one) Tablet ER bid for 0 days Quantity: 60 {Tablet} Refills: 3 Ordered:29-Jun-2014 Danisha Dawson LPN Start : 20-Nov-2013 End : 29-Jun-2014 Discontinued TAMBOCOR, 100MG (Oral Tablet) 2 (two) Tablet qd for 30 days Refills: 0 Ordered:13-Jul-2013 Jill Campo DOhleen Start : 05-Jan-2013 End : 13-Jul-2013 Discontinued Comments:This order discontinued per [facility]. Allergies and Adverse Reactions Name Dates Details Atorvastatin Calcium Status: Active *ANTIHYPERLIPIDEMICS* (Allergy) Comments: severe aches and pains, constipation FOSAMAX, 70MG (Oral Tablet) (Allergy) Status: Active Comments: Takes weekly, bothers her stomach Novacaine (Allergy) Status: Active Robaxin *MUSCULOSKELETAL THERAPY AGENTS* Status: Active (Allergy) Sensitive to chemicals (Allergy) Status: Active Past Medical History Name Dates Details Abdominal pain (R10.9, 789.00) Comments: think divert. on augmentin about same not on immunosuppressants. will not let self rest. urine negative. still have uterus /ovaries. no vaginal discharge. has been same not worse Status: Resolved as of 10-Dec-2017 Abdominal pain, acute, generalized (R10.84, 789.07) Comments: more in upper. still have GB. had little LFT up. Status: Inactive as of 01-Apr-2013 Abnormal EKG (R94.31, 794.31) Status: Inactive as of 21-Dec-2014 Abnormal lung sounds (R09.89, 786.7) Status: Inactive as of 01-Apr-2013 Abnormal lung sounds (R09.89, 786.7) Status: Resolved as of 30-Aug-2017 Acute bacterial bronchitis (J20.8, 466.0) Status: Inactive as of 06-Aug-2016 Acute bilateral back pain, unspecified back location (M54.9, 724.5) Comments: right now better on medrol dose jesi. xray done. willstart exercise. Status: Resolved as of 30-Aug-2017 Acute bronchitis (J20.9, 466.0) Comments: X2 Status: Inactive as of 01-Apr-2013 Acute leg pain, left (M79.605, 729.5) Comments: using ibu sparingly. cortisone shot to hip bursa ? related to DDD lumbar. to PT if not better to orthosx. xray of back and hip 10-16 better now. Status: Resolved as of 01-Jun-2016 Acute sinusitis, unspecified (J01.90, 461.9) Status: Inactive as of 09-Oct-2008 Arthritis (M19.90, 716.90) Comments: Dr. Garcia in [place] stable off meds now doign well last time last 2 years Status: Inactive as of 21-Apr-2016 BMI 28.0-28.9,adult (Z68.28, V85.24) Status: Inactive as of 06-Aug-2016 Bronchitis (J40, 490) Comments: at this point not better and 2 weeks. will do atb.viral ?- will give more time and see if helps- ck cxr and do immunity buildershas appt on and can reassess and if no better do antibiotic Status: Resolved as of 10-Dec-2017 Bronchitis (J40, 490) Status: Inactive as of 13-Jul-2013 Bronchitis (J40, 490) Comments: took cefdinir and help but back. no atypical coverage. but not able to take levaquin or biaxin with meds. will do rocephin IM and then treated with double coverage att steriod inhaler has appt with sibilia Status: Inactive as of 21-Dec-2014 Cellulitis and abscess of leg, except foot (L03.119, 682.6) Comments: Got 1 dose vanc, culture back Group B hemolytic strep Status: Inactive as of 01-Apr-2013 Cellulitis of arm (L03.119, 682.3) Status: Inactive as of 01-Apr-2013 Cerumen impaction (H61.20, 380.4) Status: Inactive as of 21-Dec-2014 Chest congestion (R09.89, 786.9) Comments: no seem infected ? because outsid alejandro in mulch and air. she react. willfollow if worsen signs and symptoms willcall use mucinex Status: Resolved as of 10-Dec-2017 Chest pain (R07.9, 786.59) Comments: sounds atypical Status: Inactive as of 01-Apr-2013 Chills (R68.83, 780.64) Comments: h/o of terrible rigors last time took tamiflu sjo with a neg flu i hate to empirically give will send for confirmation Status: Inactive as of 04-May-2016 Cough (R05, 786.2) Status: Inactive as of 21-Dec-2014 Cough (R05, 786.2) Comments: think bronchitis Status: Resolved as of 10-Dec-2017 Disorder of the skin and subcutaneous tissue, unspecified (L98.9, 709.9) Status: Inactive as of 01-Apr-2013 Diverticulitis (K57.92, 562.11) Comments: start atb told worsen to ER getting better on atb Status: Inactive as of 21-Sep-2016 Dizziness (R42, 780.4) Comments: had 3 epsidoes swoosh i head seconds will talk to cardio and see ent. BP good will let know if worsen Status: Resolved as of 10-Dec-2017 Dysuria (R30.0, 788.1) Comments: now signs and symptoms of UTI ? from dehydration with flu not using estrogen cream and had augmentin few weeks ago Status: Resolved as of 30-Aug-2017 Elevated liver enzymes (R74.8, 790.5) Comments: on minocycline Status: Inactive as of 21-Dec-2014 Elevated TSH (R79.89, 794.5) Comments: recheck good Status: Inactive as of 31-Aug-2017 Emphysema (J43.9, 492.8) Comments: see sibilia and did recent PFT. not use inhalers when sick. but doing well off inhalers. see sonny for allergies show great on tests no copd Status: Inactive as of 17-May-2012 Encounter for immunization (Z23, V03.89) Status: Inactive as of 21-Feb-2015 Encounter for screening mammogram for breast cancer (Renamed from Encounter for screening mammogram for malignant neoplasm of breast) (Z12.31, V76.12) Status: Resolved as of 04-May-2017 Fall (W19.XXXA, E888.9) Status: Inactive as of 21-Dec-2014 Fall from steps, initial encounter (W10.8XXA, E880.9) Comments: not notice wasthere. other ignacio not pass out. has been lightheaded at times with bradycardia but not at this time Status: Resolved as of 10-Dec-2017 Flu-like symptoms (R68.89, 780.99) Status: Resolved as of 30-Aug-2017 Gait abnormality (R26.9, 781.2) Comments: seeing PT. falls and think because feet deformity. Status: Inactive as of 21-Dec-2014 Hair loss (L65.9, 704.00) Comments: see derm 08-10. thinkmeds but need. taking biotin again. Status: Inactive as of 21-Dec-2014 Headache (R51, 784.0) Status: Inactive as of 01-Apr-2013 Hematoma of hip, right, initial encounter (S70.01XA, 924.01) Comments: better now gone. Status: Resolved as of 30-Aug-2017 Hematuria (R31.9, 599.7) Comments: melvin 2006 cystoscope, repeat 07-[address] [facility] no tumor and abscess gone Status: Inactive as of 13-Jul-2013 Hematuria (R31.9, 599.70) Status: Inactive as of 21-Dec-2014 Hip bursitis, left (M70.72, 726.5) Status: Resolved as of 30-Aug-2017 Hip pain, acute, right (M25.551, 719.45) Comments: fell 10 days ago directly onto right side, onto deck into [facility] has swelling and ecchymosis Status: Resolved as of 30-Aug-2017 Hypertension, benign (I10, 401.1) Status: Inactive as of 01-Apr-2013 Hypokalemia (E87.6, 276.8) Comments: higher HCTZ lower K. will follow recheck now with dtart back some HCYZ Status: Inactive as of 06-Aug-2016 Immunocompromised (D84.9, 279.3) Status: Inactive as of 21-Dec-2014 immunosuppression Comments: hold embrel Status: Inactive as of 01-Apr-2013 Impaired fasting glucose (R73.01, 790.21) Comments: hga1c is normal Status: Inactive as of 10-Sep-2015 Influenza (J11.1, 487.1) Comments: on Orencia next dose June 21 will follow up in 1 week Status: Inactive as of 21-Dec-2014 INFLUENZA W/MANIFESTATION NEC (487.8) Status: Inactive as of 01-Apr-2013 Knee pain (M25.569, 719.46) Comments: oa flare??-- nsaid and ice Status: Inactive as of 21-Dec-2014 Knee pain, right (M25.561, 719.46) Status: Inactive as of 21-Dec-2014 Left hip pain (M25.552, 719.45) Comments: right now better. xray mild OA Status: Resolved as of 01-Jun-2016 Mouth ulcer (K12.1, 528.9) Status: Resolved as of 30-Aug-2017 Need for pneumococcal vaccination (Z23, V03.82) Status: Inactive as of 21-Feb-2015 Need for prophylactic vaccination and inoculation against influenza (Z23, V04.81) Status: Inactive as of 01-Apr-2013 Need for prophylactic vaccination and inoculation against influenza (Z23, V04.81) Status: Inactive as of 21-Dec-2014 Need for prophylactic vaccination and inoculation against influenza (Z23, V04.81) Status: Inactive as of 04-May-2016 Need for Tdap vaccination (Renamed from Need for nygzwcsath-otfncwv-kxdryvroz (Tdap) vaccine, adult/adolescent) (Z23, V06.1) Status: Resolved as of 10-Dec-2017 NEOP, BNG, RENAL PELVIS (223.1) Comments: 3 not have now. will follow urine cx because not show signs and symptoms. Status: Inactive as of 17-May-2012 Pain of upper extremity, unspecified laterality (M79.603, 729.5) Comments: right biceps tore. chronic Dr. josue not recommend surgery at her age. 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) Status: Inactive as of 01-Apr-2013 Rib pain (R07.81, 786.50) Status: Inactive as of 21-Dec-2014 Rib pain on right side (R07.81, 786.50) Status: Inactive as of 21-Dec-2014 Right elbow pain (M25.521, 719.42) Status: Resolved as of 30-Aug-2017 Right hand pain (M79.641, 729.5) Status: Resolved as of 30-Aug-2017 Screening examination for pulmonary tuberculosis (Z11.1, V74.1) Status: Inactive as of 25-Jul-2009 SCREENING FOR BREAST CANCER (Z12.39, V76.10) Status: Inactive as of 21-Dec-2014 Shortness of breath at rest (R06.02, 786.05) Status: Inactive as of 01-Apr-2013 Sore on calf (M79.609, 729.5) Comments: left ? spider bite not look like brown recluse. used triple atb and told her to stop in case reaction. if worsen will call. will stop wearing brace that rub. use bacitracin never had MRSA and did not start as pimple. not look pustule like not fluctunat tissue or like recluse bite. Status: Resolved as of 30-Aug-2017 Stress reaction (F43.0, 308.9) Comments: lost 3 family members in last year. son in rehab again. finally sleeping okay normal grieving Status: Inactive as of 04-May-2016 SYMPTOM, PAIN, PRECORDIAL (786.51) Status: Inactive as of 01-Apr-2013 Syncope and collapse (R55, 780.2) Comments: ? cardiac ? stress not sound like seizure Status: Inactive as of 01-Apr-2013 Thrush, oral (B37.0, 112.0) Status: Resolved as of 19-Jan-2017 Unspecified Diagnosis Status: Inactive as of 04-May-2016 Unspecified Diagnosis Status: Inactive as of 25-Jan-2009 Unspecified Diagnosis Status: Inactive as of 13-Jul-2013 Unspecified Diagnosis Status: Inactive as of 04-May-2016 Unspecified hearing loss, unspecified ear (H91.90, 389.9) Status: Inactive as of 01-Apr-2013 Urinary frequency (R35.0, 788.41) Comments: bladder irritant from potassium vs UTI Status: Inactive as of 13-Jul-2013 Urinary tract infection, site not specified (N39.0, 599.0) Comments: not like cipro. augmentin help last time -. using estrogen cream. Status: Resolved as of 30-Aug-2017 Well woman exam (Z01.419, V72.31) Comments: scope 2006. has order for mammo fax and will do. Status: Resolved as of 03-Jan-2015 Wheezing (R06.2, 786.07) Status: Inactive as of 18-Aug-2016 Wheezing (R06.2, 786.07) Status: Inactive as of 21-Dec-2014 WWV V73.21 Status: Inactive as of 01-Apr-2013 Yeast infection (B37.9, 112.9) Status: Inactive as of 03-Jan-2015 Procedures Procedure Dates Details PNEUM VAC ADLT/IMUMNOSPR, SBC/INTRM Date: 07-Jan-2015 Completed 07-Jan-2015 (11716) Comments: Lot:[id number]:05/01/16Dose:0.5mgRoute:imSite:ganga Roberts By:FRANCA given on 01/03/15VIS signed Colonoscopy Completed Comments: 2005 colonoscopy Completed Comments: Dr Bailey - around age 56 or 66 D&C to get Completed Comments: x3 PACEMAKER IMPLANTATION (72449) Completed Comments: dual chamber 06-29-[address] [facility] [address] Fleming ROTATOR CUFF REPAIR Completed Comments: Left, July 31 2005, Dr Josue Tonsillectomy Completed Tubal Ligation Completed Date Value Details 18-Jan-2018 Cardiology Visit Report Result: Comments: See Note; NOTES: [facility] [place] [address] OFFICE VISIT Date of Service: 01/18/18 MR#: [id number] Acct: [id number] Name: MALI WALDEN Ruchi bazzi #: [id number] : 1940 Provider: ELISE Bah Age/Sex: 77/F Location: [facility] [place] Status: Signed HPI HPI Details: MALI WALDEN, is a 77 F who presents to the office today for a cardiovascular outpa tient follow-up. She has a history of symptomatic sinus bradycardia with pacemaker placement, tachybradycardia syndrome, paroxysmal atrial fibrillation, hyperlipidemia, and hypertension. Pt. denies ofe st, arm, jaw, or neck discomfort. Her exercise tolerance is stable. Pt. denies symptoms of CHF, lightheadedness, near syncope, or syncopal episodes. Pt. denies edema or claudication issues. Pt. denies o rthopnea, PND, fever, chills, blood in urine, blood in stool, myalgia, or unexplainable fatigue. She states last week she noticed dizziness. She states this occurred while standing. This lasted for 10- 15 seconds. She denied any secondary symptoms with it. This seems to occur every 2 weeks. She states occasional chest twinge. This does not occur with exertion. This is unchanged over the last few years. Intake Intake Visit Reasons: surg clearance Allergies methocarbamol [From Robaxin] Allergy (Verified 12/16/17 12:57) Other procaine HCl [From Novocain] Allergy (Verified 12:57) Other Medications Calcium Carbonate [Calcium] 1,000 mg PO DAILY 12/16/14 [History Confirmed 01/18/18] Cholecalciferol (VIT D3) [Vitamin D] 1,000 unit PO DAILY 12/16/14 [History Confirmed ] Minocycline [Minocin] 100 mg PO DAILY 12/16/14 [History Confirmed 01/18/18] Potassium Chloride [K-Dur] 20 meq PO BID 12/16/14 [History Confirmed 01/18/18] magnesium oxide 400 mg tablet 400 mg PO BID #180 tab 05/28/17 [Rx Confirmed 01/18/18] hydrochlorothiazide 12.5 mg capsule 12.5 mg PO QDAY cap 06/02/17 [History Confirmed 01/18/18] levomefolate calcium 7.5 mg tablet 7.5 mg PO QDAY 06/08/17 [H istory Confirmed 01/18/18] losartan 100 mg tablet 100 mg PO DAILY #30 tab 06/08/17 [Rx Confirmed 01/18/18] metoprolol tartrate 25 mg tablet 12.5 mg PO DAILY 06/08/17 [History Confirmed 01/18/18] [place]-3 Fatty Acids/Fish Oil [Fish Oil 1,000 mg Capsule] 1 ea PO DAILY 06/28/17 [History Confirmed 01/18/18] flecainide 100 mg tablet 100 mg PO BID #180 tab 12/09/17 [Rx Confirmed 01/18/18] aspirin 81 mg table t,delayed release 81 mg PO DAILY 01/18/18 [History Confirmed 01/18/18] evolocumab 140 mg/mL subcutaneous pen injector 140 mg SC Q2W 01/18/18 [History Confirmed 01/18/18] PFSH Medical History PSVT (p aroxysmal supraventricular tachycardia) (Chronic) PAC (premature atrial contraction) (Chronic) HTN (hypertension) (Chronic) Sick sinus syndrome (Chronic) Hyperlipidemia (Chronic) Hypokalemia (Chronic) P aroxysmal atrial fibrillation (Chronic) Premature ventricular contractions (Chronic) Palpitations (Chronic) Near syncope (Chronic) Mitral valve prolapse (Chronic) Abnormal electrocardiogram (Chronic) Surgical History Presence of cardiac pacemaker (Chronic) History of tonsillectomy (Chronic) Family History Mother Myocardial infarction CAD (coronary artery disease) HLD (hyperlipidemia) Bro ther CAD (coronary artery disease) Social History Smoking Status: Former smoker alcohol intake: never substance use type: does not use what type of physical activity do you participate in: no ne ROS Const Const: Negative for fatigue, weakness, body ache, fever(s) or chills ENT ENT: Positive for dizziness Cardio Chest Pain: No Palpitations: Yes Edema: None Muscle aches with walking: None Resp Respiratory: Negative for SOB with activity, SOB at rest, SOB orthopnea\SOB lying down or paroxysmal nocturnal dyspnea GI GI: Negative nausea, black,tarry stools, bright, red blood in stools or vom iting blood/hematemesis : Negative for hematuria or frequent nighttime urination/ nocturia Musc Musc: Negative for muscle aches/ myalgia Skin Skin: Negative non- healing lesions or rash Neuro Neuro: Positive for dizziness; negative for weakness, lightheadedness, near syncope, syncope or orthostatic symptoms Endo Endo: Negative for fatigue Allergy Allergy/Immunology: Negative for rash Cardiology Exam Const Appearance: cooperative, no acute distress and well developed Nutritional Appearance: overweight Orientation: alert, awake and oriented x3 Head Head: normocephalic, atraumatic and normal to i nspection Ears: hearing grossly normal bilaterally Nose: external nose normal Face and Sinus: face symmetric Mouth: moist mucous membranes Eyes General: appearance normal, both eyes and all related stru ctures Conjunctivae: conjunctivae normal Pupils: PERRL EOM: EOM intact bilaterally Neck Neck: normal visual inspection, no lymphadenopathy and no JVD Carotids: Negative bruit Neck Mass: Negative Neck ma ss Chest Chest inspection: normal inspection of the chest, symmetric chest movement, Pacemaker/ICD and normal respiratory effort Auscultation: Bilateral: Clear to Auscultation Cardio Palpation: normal P DC Rate: regular rate Rhythm: regular rhythm Heart sounds: S1 normal and S2 normal; negative rub, gallop or murmur GI GI: normal to inspection, soft, no hepatosplenomegaly and bowel sounds present; nega tive tender Neuro General: alert, awake, oriented x3, CN's II-XI intact bilaterally and moves all extremities Extremities Pulses: Normal: Right Posterior Tibial Pulse, Left Posterior Tibial Pulse, Right Radial Pulse, Left Radial Pulse Lower Extremity Edema: None: Bilateral Psych Psychological: normal affect Supplemental Info Stress test in May 2017 was negative for ischemia. Echocardiogram fro October 2014 showed an ejection fraction of 55%, septal bounce, mild mitral valve insufficiency, mild tricuspid valve insufficiency, mild focal aortic valve thickening, trivial aortic valve insufficiency , mild pulmonic valve insufficiency, and RVSP of 30 mmHg. 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 30-day event monitor from November 2012 showed basic rhythm of sinus bradycardia with rates from 56-70 bpm, 3 episodes of atrial fibrillation with rates from 63-138 bpm, no ectopic complexes noted, one 2.4-second yaneth se, and patient's symptoms of palpitations correlated with atrial fibrillation and symptoms of rapid pulse correlated with atrial tachycardia. Pacemaker check from A ugust 2017 showed no MS, no AT/AF, and no VT episodes, presenting rhythm of AAI pacing at 98 ppm, [employer] MANAGER=0%, AP=96.2%, and battery life estimated to be [address] scan from November showed a calcium score of 307, which would be indicative of the concern of moderate plaque burden with moderate nonobstructive coronary artery disease being considered highly likely. Assessment AND Plan 1. Dizziness R42 Plan The exact etiology of this is unclear. Her heart rate and blood pressure remained stable. Her most recent pacemaker check in November 2017 showed no concerning dysrhythmias. At this time we will continue to monitor. 2. Paroxysmal atrial fibrillation I48.0 Plan Her most recent pacemaker check in November 2017 showed no MS, no AT/AF episodes and no VT episodes. Her heart rate remains well controlled today. She is not on any oral anticoagulation due to maintaining sinus rhythm. We will continue to follow this via pacemaker clinic. She will continue current medi cations. 3. Sick sinus syndrome I49.5 Plan She is status post permanent pacemaker for this. Her heart rate remains stable. 4. Essential hypertension I10 Plan Patient's blood pressure is well-controlle d today in the office. We will continue to monitor this. We will not make any medication regimen changes. 5. Pre-operative cardiovascular examination Z01.810 Plan Her stress test from May 2017 was negative for ischemia. Her carotid duplex from November 2016 showed mild stenosis of right and left extracranial internal carotid. Her pacemaker check from November 2017 showed no concerning dysrhythmia. A t this time given lack of major cardiac symptoms she is safe to proceed with noncardiac surgery. She was asked to continue both metoprolol and flecainide before and including day of surgery. It will be prudent to monitor fluid status to help lessen possibility of atrial fibrillation. She was also instructed to contact our office with the date of surgery so that a remote pacemaker transmission could be done to evaluate for any dysrhythmias between November and prior to surgery. Plan Detail Additional Comments Thank you for allowing us to participate in the patient's plan of care, if you have any quest ions please do not hesitate to call. This note was generated using a voice recognition system and there may be incorrect words, spelling, or punctuation that were not noted upon reviewing the office no te prior to saving. Coding Level of Care Code Off vis,est,level 3 Diagnoses Dizziness R42 Paroxysmal atrial fibrillation I48.0 Sick sinus syndrome I49.5 Essential hypertension I10 Hypertension type: e ssential hypertension Pre-operative cardiovascular examination Z01.810 Coding Level of Care Code Off vis,est,level 3 Diagnoses Dizziness R42 Paroxysmal atrial fibrillation I48.0 Sick sinus syndrome I 49.5 Essential hypertension I10 Hypertension type: essential hypertension Pre- operative cardiovascular examination Z01.810 01/18/18 1413 <Electronically signed by Eliceo WOMACK> Da te Eliceo WOMACK Cosigner Signature: Date (if applicable) CC: Bob Padron MD; Diana Troncoso MD 16-Dec-[address] w/CCTA Result: Comments: See Note; NOTES: [facility] Imaging Services [address] [place] [address] w/CCTA MR#: [id number] Acct: [id number] Name: MALI WALDEN Rep #: [id number] : 1940 F 77 From: Archie Alvares MD PCP: Diana Troncoso MD Status: REG CLI Study: Limited Chest CT w/CCTA Date of Exam: 12/16/17 Exam# [id number] Ordering Dr: Diana Troncoso MD STUDY: CT CHEST WITHOUT CONTRAST REASON FOR EXAM: Female, 77 years old. Elevated cholesterol. This is an over read for cardiac calcium score. RADIATION DOSAGE (If Supplied By Facility): CTDIvol = ( 12.19 ) mGy, DLP = ( 243.79 ) mGycm TECHNIQUE: Transaxial imaging was performed without the administration of intravenous contrast material. Individualized dose optimization techniques were used for this CT. COM PARISON: None. FINDINGS: Mild degree of emphysematous changes in both lungs worse in the upper lobes. Minimal increased markings in the posterior medial segment of the right lower lobe suggestive of mild scarring. There is no demonstrated pleural abnormality. There are calcifications of the coronary arteries. A dual-chamber pacemaker is seen. There are multiple small lymph nodes within the mediastinum, which are normal in size and morphology most compatible with reactive lymph hyperplasia. Normal hilar regions. Normal unenhanced pulmonary arteries. There is at herosclerotic calcification of the aortic arch with tortuosity and elongation of the aortic arch and descending thoracic aorta. Normal osseous structures. Small hiatal hernia. CT/Limited Chest CT w/CCTA IMPRESSION: Mild degree of emphysematous changes. Coronary artery calcification. Electronically Signed: Archie Alvares MD at 9:03 EDT Tel [phone], Service support , CC: Diana Troncoso MD Actor Understudy: Signed 02-Dec-2017 Pacemaker Check Result: Comments: See Note; NOTES: [facility] [address] [place] [address] Pacemaker Check Date of Service: 12/01/172006 MR#: [id number] Acct: [id number] Name: EDDIE WALDEN Rep #: [id number] : 1940 From: Nishi Johnson Age/Sex: 77/F Location: [facility] [place].[facility] Status: Signed 12/01/172008 <Electronically signed by Nisih Johnson > Date Nishi Johnson 12/02/17 0855<Electronically signed by Manoj Young MD> Cosigner Signature: Date (if applicable) Manoj Young MD CC: 04-Sep-2017 Cardiology Visit Report Result: Comments: See Note; NOTES: [facility] [place] [address] [place] [address] OFFICE VISIT Date of Service: 09/03/17 MR#: [id number] Acct: [id number] Name: MALI WALDEN p #: [id number] : 1940 Provider: Amna Vang Age/Sex: 76/F Location: [facility] [place].[facility] Status: Signed HPI HPI Details: MALI WALDEN, is a 76 F who presents to the office today for a cardiovascular f ollow-up. She has a history of symptomatic sinus bradycardia with recent pacemaker placement, tachybradycardia syndrome, hyperlipidemia and hypertension. Overall patient states that since having her pa cemaker placed she feels much improved. She states that now she feels normal. She does not have any shortness of breath. She is less fatigued. She has had some dizziness last week dhaliwalvikas mota feels that this is related to some sinus drainage. Her primary care doctor is encouraged her to resume her pravastatin. Patient is considering this however she does have significant myalgias on her statin medication. She states that she will do this next week with a very low dose. Recent pacemaker interrogation demonstrated one episode of supraventricular tachycardia. Intake Vital Signs 8 Height 5 ft 2 in 09/03/17 Weight: 159 lb 09/03/17 Body Mass Index (BMI) 29.0 Intake Visit Reasons: 3 M FU Recreation Aide Required: No Accompanied by: none Is patient in pain?: No Allergies methocarbam ol [From Robaxin] Allergy (Verified 09/03/17 11:18) Other procaine HCl [From Novocain] Allergy (Verified 09/03/17 11:18) Other Medications Calcium Carbonate [Calcium] 1,000 mg PO DAILY 12/16/14 [Hist ory Confirmed 09/03/17] Cholecalciferol (VIT D3) [Vitamin D] 1,000 unit PO DAILY 12/16/14 [History Confirmed 09/03/17] Flecainide [Tambocor] 100 mg PO BID 12/16/14 [History Confirmed 09/03/17] Minocycli ne [Minocin] 100 mg PO DAILY 12/16/14 [History Confirmed 09/03/17] Potassium Chloride [K-Dur] 20 meq PO BID 12/16/14 [History Confirmed 09/03/17] magnesium oxide 400 mg tablet 400 mg PO BID #180 tab 01/04 [Rx Confirmed 09/03/17] hydrochlorothiazide 12.5 mg capsule 12.5 mg PO QDAY cap 06/02/17 [History Confirmed 09/03/17] levomefolate calcium 7.5 mg tablet 7.5 mg PO QDAY 06/08/17 [History Confirmed 09/03/17] losartan 100 mg tablet 100 mg PO DAILY #30 tab 06/08/17 [Rx Confirmed 09/03/17] metoprolol tartrate 25 mg tablet 12.5 mg PO DAILY 06/08/17 [History Confirmed 09/03/17] [place]-3 Fatty Acids/Fish Oil [Fish Oil 1,000 mg Capsule] 1 ea PO DAILY 06/28/17 [History Confirmed 09/03/17] Ejection fraction %: 55 to 59 PFSH Medical History PSVT (paroxysmal supraventricular tachycardia) (Chronic) PAC ( premature atrial contraction) (Chronic) HTN (hypertension) (Chronic) Sick sinus syndrome (Chronic) Hyperlipidemia (Chronic) Hypokalemia (Chronic) Paroxysmal atrial fibrillation (Chronic) Premature ventr icular contractions (Chronic) Palpitations (Chronic) Near syncope (Chronic) Mitral valve prolapse (Chronic) Abnormal electrocardiogram (Chronic) Surgical History Presence of cardiac pacemaker (Chroni c) History of tonsillectomy (Chronic) Family History Mother Myocardial infarction CAD (coronary artery disease) HLD (hyperlipidemia) Brother CAD (coronary artery disease) Social History Smoking Status: Former smoker alcohol intake: never substance use type: does not use what type of physical activity do you participate in: none RO S Const Const: Negative for weakness, fatigue, fever(s) or headache(s) Eyes Eyes: Negative for blind spots, loss of peripheral vision or transient loss of vision ENT ENT: Negative for headache(s), dizzi ness, tinnitus or Nosebleed/epistaxis Cardio Chest Pain: No Palpitations: No Edema: None Muscle aches with walking: None Resp Respiratory: Negative for SOB with activity, SOB at rest, SOB orthopnea\SOB lying down or Cough GI GI: Negative nausea, vomiting, heartburn or vomiting blood/hematemesis : Negative for hematuria Musc Musc: Negative for muscle aches/ myalgia Neuro Neuro: Negative for weakne ss, headache(s), dizziness, near syncope, syncope, lightheadedness or orthostatic symptoms Omar Hematologic/Lymphatic: Negative for easy bleeding Endo Endo: Negative for fatigue Cardiology Exam Const Appearance: cooperative, no acute distress and well developed Orientation: alert, awake and oriented x3 Head Head: normocephalic and atraumatic Mouth: moist mucous membranes Eyes General: appearance nor mal, both eyes and all related structures Conjunctivae: conjunctivae normal Pupils: PERRL EOM: EOM intact bilaterally Neck Neck: normal visual inspection, no lymphadenopathy and no JVD Carotids: Negativ e bruit Neck Mass: Negative Neck mass Chest Chest inspection: normal inspection of the chest, symmetric chest movement and Pacemaker/ICD Auscultation: Bilateral: Clear to Auscultation Cardio Palpation: normal PMI Rate: regular rate Rhythm: regular rhythm Heart sounds: S1 normal and S2 normal; negative rub, gallop or murmur GI GI: normal to inspection, soft, no hepatosplenomegaly and bowel sounds prese nt; negative tender Neuro General: alert, awake, oriented x3, CN's II-XI intact bilaterally and moves all extremities Extremities Pulses: Normal: Right Posterior Tibial Pulse, Left Posterior Tibial Puls e, Right Radial Pulse, Left Radial Pulse Lower Extremity Edema: None: Bilateral Psych Psychological: normal affect Supplemental Info Stress test in 2018 was negative for ischemia. Echocardiogram in 2 013 demonstrated Left ventricular systolic function is normal. The estimated ejection fraction is 55 %. Septal bounce. Mild (1+) mitral valve insufficiency. Mild tricuspid valve insufficiency. Mild foca l aortic valve thickening. Trivial aortic valve insufficiency. Mild (1+) pulmonic valve insufficiency. Right ventricular systolic pressure estimated to be 30 mmHg. Assessment AND Plan 1. Essential hyp ertension I10 Plan Blood pressure is well controlled on current medications, we do not recommend any changes at this time. 2. Mixed hyperlipidemia E78.2 Plan Patient states that these are not adequatel y controlled. She is trying to resume her pravastatin that is being prescribed by her primary care doctor. She states that she is also monitoring her diet closely. Have asked for copy of labs for contin uity of care. 3. Paroxysmal atrial fibrillation I48.0 Plan Patient has not had any further symptomatic recurrence. She will continue with a rate limiting medication in addition to her antiarrhythmic. W e will continue to monitor through pacemaker interrogations. She is aware that if she has any recurrence that she may need to resume an anticoagulant. 4. Presence of cardiac pacemaker Z95.0 Plan Pacema jennifer is functioning appropriately. We will continue to monitor at routine scheduled pacemaker interrogations. Plan Detail Additional Comments Thank you for allowing us to participate in patient's plan of care, if you have any questions please do not hesitate to call. This note was generated using a voice recognition system and there may be incorrect words, spelling or punctuation errors that were n ot noted when reviewing the office note prior to saving. Follow Up 6 Months (MMM) 1 Year (PFM) Coding Level of Care Code Off vis,est,level 3 Diagnoses Essential hypertension I10 Hypertension type: es sential hypertension Mixed hyperlipidemia E78.2 Hyperlipidemia type: mixed hyperlipidemia Paroxysmal atrial fibrillation I48.0 Presence of cardiac pacemaker Z95.0 Coding Level of Care Code Off vis,est ,level 3 Diagnoses Essential hypertension I10 Hypertension type: essential hypertension Mixed hyperlipidemia E78.2 Hyperlipidemia type: mixed hyperlipidemia Paroxysmal atrial fibrillation I48.0 Presenc e of cardiac pacemaker Z95.0 09/04/17 1147 <Electronically signed by Amna CARVER> Date Amna martines Signature: Date (if applicable) CC: Diana Troncoso MD 31-Aug-2017 Pacemaker Check Result: Comments: See Note; NOTES: [facility] [address] [place] [address] Pacemaker Check Date of Service: 08/20/17 1417 MR#: [id number] Acct: [id number] Name: WALDEN,EDDIE Bean Rep #: [id number] : 1940 From: Nishi Raber Age/Sex: 76/F Location: [facility] [place] Status: Signed Comments Summary Comments: Dual Chamber Pacemaker Evaluation: See attached scanned clinical data programmer r eport. 6 wk post implant check completed. Interrogation shows 1 AT/AF episode and 1 NSVT episode since 07/06/17. Stored e-gram for NSVT episode shows what appears to be supraventricular tachycardia @ 160 bpm (1:1 conduction) for approx 7 secs. Stored e-gram for AT/AF episode shows atrial tachycardia or approx 1 min 29 secs. Left pectoral pocket/incision w/o s/s of infection or erosion. Pt offers no car diac complaints. Presenting rhythm shows AAI pacing @ 71 ppm. WIND POWER PROJECT MANAGER=0.1%. Estimated battery life 9 yrs. Device and lead measurements stable. Decreased A/V amplitudes with adequate safety margin to preserve battery longevity. Counters cleared. Next remote f/u appt scheduled for in 3 mos. Device Device Date Interviewed: 08/20/17 Follow-up Location: in office Interview Reason: scheduled follow up Manufact urer: Medtronic Name: Fazal GALLOWAY Model: A2DR01 Serial #: [id number] Implant Date: 06/28/17 Year(s): 0 Implant Physician: Dr. Brennan Fleming/[facility] Patient Characteristics Atrial Indication: sick sinus synd gino, Paroxysmal atrial fibrillation Patient Substrate: Arrhythmia Underlying rhythm: Sinus bradycardia Pacemaker Dependent: No Device Characteristics Device: Dual Chamber Type: Pacemaker Remote Follow- Up: [facility]link Device Physical Exam Yes Incision well healed Leads Lead #1 Clinical Trial Coordinator Lead 1: Medtronic Model Lead 1: 5076/45 Serial# Lead 1: [id number] Date Implanted Lead 1: 06/28/17 Position Lead 1 : RA Lead #2 Clinical Trial Coordinator Lead 2: [employer] Model Lead 2: 5076/52 Serial# Lead 2: [id number] Date Implanted Lead 2: 06/28/17 Position Lead 2: RV Diagnostics Pacing % RA Pacin.9 % RV Pacin .1 Mode Switching Total # Episodes: 1 % Mode switched: 0.1 Arrhythmias Non- Sust Episodes: 1 Allan Settings Allan Settings Pacemaker Mode AAIR+ Output/Sensing V/PW (ms) 2.0/0.4 2.0/0.4 Sen sitivity RA RV LV Comments: Billing Codes PM Device Codes: PM Dev Prog Eval, Dual Assessment AND Plan Problems 1. Presence of cardiac pacemaker Z95.0 2. PSVT (paroxysmal supraventricular tachycard ia) I47.1 3. Sick sinus syndrome I49.5 4. Paroxysmal atrial fibrillation I48.0 5. Near syncope R55 08/30/17 2031 <Electronically signed by Nishi Johnson > Date Nishi Johnson 08/31/17 1726<Electronically signed by Manoj Young MD> Cosigner Signature: Date (if applicable) Manoj Young MD CC: 29-Jun-2017 Discharge Instruction Result: Comments: See Note; NOTES: [facility] Medical Records Department [address] [place] [address] Instructions for Home/Discharge Instructions 06/29/17 1042 MR#: [id number] Acct: [id number] Name: MALI WALDEN Rep #: [id number] : 1940 76 From: Brennan Fleming MD PCP: Diana Troncoso MD Status: REG [facility] [place] Dis[place] Diet: No Restrictions Discharge Activity: Return to Normal Activity - as you feel able. No excessive stretching. No lifting your arm over your head (keep elbow below shoulder level) until seen for your pacemaker check. Do not lift your elbow away from your side until y ou are seen for your first visit. Keep the arm sling on if it helps remind you not to lift your arm. Additional Activity Instructions:: May shower or bathe on []. Do not scrub the incision or soak in th e tub. Just wash with soap and let the water run over the incision. Gently pat dry with towel. Medications: Take your pain medication as directed. Refer to your discharge instruction sheet for a list of medications you are to take. Call your doctor if your incision/area has: Continuous Slow Oozing, Sudden Increased Bleeding, Increased Pain/ Swelling, Increased Redness, Foul Smelling Discharge, Swellin g at the incision site Call your doctor if you observe: Fever of 101 or Higher, Shortness of breath, Dizziness, Fainting spells, Swelling in the ankles, Chest pain, Prolonged hiccoughing, Increased palp itations (irregular heartbeat) Additional Dressing/Incision Instructions:: When dressing is removed, wash and dry incision. Keep covered with a light bandage if it is rubbing against your clothing. Do n ot cover the incision with an airtight bandage. Change the bandage daily. Do not remove steri strips. The strips will fall off on their own. Additional Instructions: Signs and Symptoms to Report to Your Doctor at Once - call your doctor's office or Doctor's Registry ([phone]) Call 911 or go to the nearest Emergency Department if you feel you need urgent care. *Infection (fever, increased redness or swelling at the incision site, drainage from the incision increased pain at the pacemaker site) *Shortness of breath *Dizziness *Fainting spells *Swelling in the ankles *Chest pain *Prolonged hiccou ghing *Increased palpitaitons (irregular heartbeat) Medications: Take your pain medication as directed. Refer to your discharge instruction sheet for a list of medications you are to take. Allergi es/Adverse Reactions: Allergies methocarbamol [From Robaxin] Allergy (Verified 06/28/17 11:20) Other procaine HCl [From Novocain] Allergy (Verified 06/28/17 11:20) Other Medications to take at Discha rge Calcium Carbonate [Calcium] 1,000 mg PO DAILY 12/16/14 Cholecalciferol (VIT D3) [Vitamin D] 1,000 unit PO DAILY 12/16/14 Flecainide [Tambocor] 100 mg PO BID 12/16/14 Minocycline [Minocin] 100 mg PO DAILY 12/16/14 Potassium Chloride [K-Dur] 20 meq PO BID 12/16/14 magnesium oxide 400 mg tablet 400 mg PO BID #180 tab 05/28/17 hydrochlorothiazide 12.5 mg capsule 12.5 mg PO QDAY cap 06/02/17 levomefol ate calcium 7.5 mg tablet 7.5 mg PO QDAY 06/08/17 losartan 100 mg tablet 100 mg PO DAILY #30 tab 06/08/17 metoprolol tartrate 25 mg tablet 12.5 mg PO DAILY 06/08/17 [place]-3 Fatty Acids/Fish Oil [Fish Oi l 1,000 mg Capsule] 1 each PO DAILY 06/28/17 Primary Care Physician: Diana Troncoso MD [Primary Care Provider] - When: pacer nurse 06/29/17 1050 <Electronically signed by Brennan Fleming MD&am p;#62; Date Brennan Fleming MD CC: Diana Troncoso MD 29-Jun-2017 Chest 1 View Result: Comments: See Note; NOTES: [facility] Imaging Services [address] [place] [address] Chest 1 View MR#: [id number] Acct: [id number] Name: MALI WALDEN Rep #: [id number] : F 76 From: Liam Arreaga PCP: Diana Troncoso MD Status: [facility] Study: Chest 1 View Date of Exam: 06/29/17 Exam# [id number] Ordering Dr: Brennan Fleming MD STUDY: X-RAY CHEST REASON FOR EXAM: Female, 76 years old. Pacemaker insertion TECHNIQUE: Single frontal view COMPARISON: 06/29/2017 FINDINGS: Pacemaker leads are in proper position. The lungs are darlyn ar and expanded. There is no demonstrated pleural abnormality. Normal size heart. Normal mediastinum and glenys. Normal visualized pulmonary arteries. Normal visualized aortic arch and descending thoraci c aorta. Normal visualized thoracic spine. Normal visualized ribs, clavicles, and shoulders. There is no demonstrated abnormality of the visualized soft tissue structures of the upper abdomen. RAD/Chest 1 View IMPRESSION: Pacemaker leads are in proper position. There is NO pneumothorax. Electronically Signed: Liam Arreaga MD at 6:53 EDT , Service support , CC: Brennan Fleming MD; Diana Troncoso MD Actor Understudy: Signed 29-Jun-2017 Chest PA and Lateral Result: Comments: See Note; NOTES: [facility] Imaging Services [address] [place] [address] Chest PA and Lateral MR#: [id number] Acct: [id number] Name: MALI WALDEN Rep #: [id number] : 1940 F 76 From: Liam Arreaga PCP: Diana Troncoso MD Status: [facility] [place] Study: Chest PA and Lateral Date of Exam: 06/29/17 Exam# [id number] Ordering Dr: Brennan Fleming MD STUDY: X-RAY CHEST R JAYDEN FOR EXAM: Female, 76 years old. Pacemaker placement TECHNIQUE: PA and lateral COMPARISON: 04/28/2017 FINDINGS: Pacemaker leads are in proper position. The rajeev ngs are clear and expanded. There is no demonstrated pleural abnormality. Normal size heart. Normal mediastinum and glenys. Normal visualized pulmonary arteries. Normal visualized aortic arch and descend ing thoracic aorta. Normal visualized thoracic spine. Normal visualized ribs, clavicles, and shoulders. There is no demonstrated abnormality of the visualized soft tissue structures of the upper abdom en. RAD/Chest PA and Lateral IMPRESSION: Pacemaker leads are in proper position. There is NO pneumothorax. Electronically Signed: Liam quinn MD at 7:08 EDT , Service support , CC: Brennan Fleming MD; Diana Troncoso MD Actor Understudy: Signed 22-Jun-2017 Office Visit Report Result: Comments: See Note; NOTES: [facility] Services [address] [address] OFFICE VISIT Date of Service: 06/21/17 MR#: [id number] Acct: [id number] Patient: MALI WALDEN Rep #: [id number] : 1940 Provider: Nishi Johnson Age/Sex: 76/F Location: [facility] [place] Status: Signed Comments Summary Comments: Pacemaker instructions, written and verbal, given to patient and daughter maribel hernandez post-op wound check appt. All questions answered and patient verbalized understanding. Device Device Date Interviewed: 06/21/17 Follow-up Location: in office Interview Reason: scheduled follow up Billing Codes Nurse, Teaching, Wound Ck (no charge): Yes Assessment AND Plan Problems 1. Sick sinus syndrome I49.5 2. PSVT (paroxysmal supraventricular tachycardia) I47.1 3. Paroxysmal atrial fibrilla tion I48.0 4. Premature ventricular contractions I49.3 5. Palpitations R00.2 6. Near syncope R55 06/21/17 1451 <Electronically signed by Nishi Johnson > Date Nishi Johnson 06/22/17 1103<Electronically signed by Brennan Fleming MD> Cosigner Signature: Date (if applicable) Brennan Fleming MD CC: 15-Jun-2017 Stress Report Result: Comments: See Note; NOTES: [facility] Cardiovascular Services [address] [place] [address] MR#: [id number] Acct: [id number] Name: MALI WALDEN Rep #: [id number] : [birth year] 76 From: Brennan Fleming MD Primary Care: Diana Troncoso MD Status: REG CLI Ordering Dr: Sex: F C Stress Test Report Pharmacologic myocardial perfusion stress test. 76-year-old lady with a history of chest pain and fatigue. Stress protocol: Resting EKG demonstrates sinus bradycardia with a rate of 41 bpm. Resting blood pressure is 160/86 centimeters of mercury. 0.4 mg of regadenoson was infused per usual protocol followed by rapid intravenous saline flush injection. Continuous EKG monitoring was performed. The maximum heart rate attained was 53 bpm which was 36% of the maximum predicted heart rate. The maximum workload was 1 metabolic equivalent. The patient maintained sinus rhythm throughout the recording. The resting blood pressure is 160/86 with a final blood pressure 130/68 mmHg. Myocar dial perfusion protocol: 11.5 mCi of technetium 99m sestamibi was injected at rest. 0.4 mg of regadenoson was infused per usual protocol. At peak infusion 33.3 mCi of technetium 99m sestamibi was inject ed. Stress images were obtained. Stress and rest images were reconstructed and compared in the short axis vertical long and horizontal long axis. Gated images were also obtained. Perfusion SPECT analys is: Review of the stress images demonstrate normal uptake of tracer noted in all areas of the myocardium. The resting images similarly demonstrate normal uptake of tracer noted in all areas of the myoca rdium. No areas of reversibility are noted suggest ischemia no previous infarct is noted. Gated SPECT analysis: Gated ejection fraction is noted to be 68%. Conclusion: Normal pharmacologic myocardial perfusion stress test. Preserved ejection fraction 06/15/17924 <Electronically signed by Brennan Fleming MD> Date Brennan Fleming MD CC: Diana Troncoso MD; Amna Vang Date Dictated: 06/15/17921 Date Transcribed: 06/15/17921 Actor Understudy: CO Signed 09-Jun-2017 Cardiology Visit Report Result: Comments: See Note; NOTES: [facility] [address] [place] [address] OFFICE VISIT Date of Service: 06/08/17 MR#: [id number] Acct: [id number] Name: JORGEMALINAY bazzi #: [id number] : 1940 Provider: Amna Vang Age/Sex: 76/F Location: [facility] [place] Status: Signed HPI HPI Details: MALI WALDEN, is a 76 F who presents to the office today for an urgent cardiova scular appt for low HR readings. She has a history of PSVT, PVCs, PACs, ectopic atrial tachycardia, paroxysmal atrial fibrillation, hypertension and mitral valve prolapse. Pt called last week, she was having low HRs. They decreased her metoprolol and she had a HM done last wednesday. I do not have these results. Pt is more fatigued and dizzy. She notes this occurs with activity, this is new. She does n ot have any chest pain/heaviness/tightness. She is not SOB at rest. She is not orthopneic. She was in the hospital last month in [place]. She was lightheaded and dizzy. She had an elevated Bp and felt that her heart rate was racing. She was not admitted, they felt that is was viral in nature. She has not been able to tolerate statins. Intake Vital Signs06/08/17 Height 5 ft 2 in 06/08/17 Weight: 16 1 lb 06/08/17 Body Mass Index (BMI) 29.4 06/08/17 Blood Pressure 120/60 Intake Visit Reasons: 6 M FU Is patient in pain?: No Allergies methocarbamol [From Robaxin] Allergy (Verified 06/08/17 10:53) O ther procaine HCl [From Novocain] Allergy (Verified 06/08/17 10:53) Other Medications Calcium Carbonate [Calcium] 500 mg PO 12/16/14 [History Confirmed 06/08/17] Cholecalciferol (VIT D3) [Vitamin D] 1,000 unit PO DAILY 12/16/14 [History Confirmed 06/08/17] Flecainide [Tambocor] 100 mg PO BID 12/16/14 [History Confirmed 06/08/17] Minocycline [Minocin] 100 mg PO DAILY 12/16/14 [History Confirmed 05/21 ] Potassium Chloride [K-Dur] 20 meq PO DAILY 12/16/14 [History Confirmed 06/08/17] magnesium oxide 400 mg tablet 400 mg PO BID #180 tab 05/28/17 [Rx Confirmed 06/08/17] aspirin 81 mg tablet,delayed release 81 mg PO QDAY tab 06/02/17 [History Confirmed 06/08/17] hydrochlorothiazide 12.5 mg capsule 12.5 mg PO QDAY cap 06/02/17 [History Confirmed 06/08/17] levomefolate calcium 7.5 mg tablet 7.5 mg PO QDAY 06/08/17 [History Confirmed 06/08/17] losartan 100 mg tablet 100 mg PO DAILY #30 tab 06/08/17 [Rx Confirmed 06/08/17] metoprolol tartrate 25 mg tablet 25 mg PO .COMPLEX 06/08/17 [History Confirmed 06/08/17] Ejection fraction %: 55 to 59 (55% per echo 11/13/14) [facility] Medical History PSVT (paroxysmal supraventricular tachycardia) (Chronic) PAC (premature atrial contraction) (Chronic) HTN (hypertension) (Chronic) Sick sinus syndrome (Chronic) Hyperlipidemia (Chronic) Hypokalemia (Chronic) Paroxysmal atrial fibrillation (Chronic) Premature ventricular co ntractions (Chronic) Palpitations (Chronic) Near syncope (Chronic) Mitral valve prolapse (Chronic) Abnormal electrocardiogram (Chronic) Surgical History Hist ory of tonsillectomy (Chronic) Family History Mother Myocardial infarction CAD (coronary artery disease) HLD (hyperlipidemia) Brother CAD (c oronary artery disease) Social History Smoking Status: Former smoker alcohol intake: never substance use type: does not use what type of physical activity do you participate in: none ROS Const Const: Positive for other (HR is too low and I am really dizzy, then bp goes up. Wore holter last week) and fatigue; negative for body ache, fever(s), chills, night sweats, daytime sleepiness, difficulty sleeping, weight gain, weight loss, increased appetite, poor appetite, anorexia, frequent falls, headache(s), weakness or excessive sweating Eyes Eyes: Posit puja for blurry vision; negative for double vision ENT ENT: Negative for balance problems, Positive for dizziness, Negative for headache(s) Cardio Chest Pain: No Palpitations: Positive for No and Yes (Fe els heart going too slow and making her dizzy. Occasional fluttering sensation.) Edema: None Muscle aches with walking: None Resp Respiratory: Positive for SOB with activity; negative for SOB at rest, S OB orthopnea\SOB lying down, Coughing up blood/hemoptysis, chest congestion, pain on inspiration, snoring, stridor, wheezing, crackles, paroxysmal nocturnal dyspnea or other Additional Details: In last 5 months has not been able to be as active, had stress fracture in leg so not sure if deconditioning or something else. GI GI: Negative nausea, vomiting, heartburn, constipation, belching, bloating, scrap handler mping, vomiting blood/hematemesis, bright, red blood in stools, black,tarry stools, loose stools, Difficulty Swallowing or other Musc Musc: Negative for muscle aches/ myalgia, muscle weakness, joint julianne n or balance problems Neuro Neuro: Positive for dizziness, Positive for lightheadedness, Negative for near syncope, Negative for syncope, Negative for orthostatic symptoms, Negative for frequent falls, Negative for headache(s), Negative for weakness, Negative for confusion, Negative for memory loss, Negative for restless legs, Positive for blurry vision, Negative for double vision, Negative for vertig o, Negative for seizures, Negative for lack of coordination, Negative for other Endo Endo: Positive for fatigue; negative for cold intolerance, heat intolerance, excessive sweating, flushing, increased thirst/drinking, increased hunger, hair loss, hair growth or other Cardiology Exam Const Appearance: cooperative, no acute distress and well developed Orientation: alert, awake and oriented x3 Head He ad: normocephalic and atraumatic Mouth: moist mucous membranes Eyes General: appearance normal, both eyes and all related structures Conjunctivae: conjunctivae normal Pupils: PERRL EOM: EOM intact bilat erally Neck Neck: normal visual inspection, no lymphadenopathy and no JVD Carotids: Negative bruit Neck Mass: Negative Neck mass Chest Chest inspection: normal inspection of the chest and symmetric ches t movement Auscultation: Bilateral: Clear to Auscultation Cardio Palpation: normal PMI Rate: regular rate Rhythm: regular rhythm Heart sounds: S1 normal and S2 normal; negative rub, gallop or murmur GI GI: normal to inspection, soft, no hepatosplenomegaly and bowel sounds present; negative tender Neuro General: alert, awake, oriented x3, CN's II-XI intact bilaterally and moves all extremities Extremit ies Pulses: Normal: Right Posterior Tibial Pulse, Left Posterior Tibial Pulse, Right Radial Pulse, Left Radial Pulse Lower Extremity Edema: None: Bilateral Psych Psychological: normal affect Supplemen rachelle Info Echocardiogram in October of 2014 which demonstrated an ejection fraction of 55%. Mild valvular insufficiency. RVSP 30 mmHg. Stress test in January of 2015 was negative for ischemia at a moderate workload. Assessment AND Plan Problems 1. Sinus allan-tachy syndrome I49.5 2. Fatigue, unspecified type R53.83 3. Dyspnea on exertion R06.09 4. Paroxysmal atrial fibrillation I48.0 5. Mixed hyperlipi demia E78.2 6. Essential hypertension I10 Plan - WEN Yost In regards to patient's low heart rate, will see what Holter monitor demonstrated. Patient may need to discontinue her flecaini de and her metoprolol altogether. 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 It is difficult to control her heart rate when it is elevated. We did talk about possibly needing a pacemaker to further control this. In regards to her fatigue and dyspnea I do not want to assume that this is related to her lower heart rate. Would like to obtain a stress test to evaluate f or underlying ischemia. Patient's blood pressure is adequately controlled. Do not feel that we need to make any adjustments at this time. Unfortunately patient is not able to tolerate any statins due to significant myalgias. Did again talk about dietary modifications to assist with this. We will follow-up with patient closely after testing is completed. Orders Orders: Medications New: Discontinue d: hydrocodone-acetaminophen 5-325 mg Discontinu1 - 2 tabs PO Q4H PRN PRN Pain Maria Guadalupe A Tahmina ed Reason: Order Completed Plan Detail Additional Comments - WEN Yost The above patient was di scussed with Dr. Young, he agrees with plan of care. Thank you for allowing us to participate in patient's plan of care, if you have any questions please do not hesitate to call. This note was gen erated using a voice recognition system and there may be incorrect words, spelling or punctuation errors that were not noted when reviewing the office note prior to saving. Follow Up 3 Months (MMM) Co ding Level of Care Code Off vis,est,level 4 Diagnoses Sinus allan-tachy syndrome I49.5 Fatigue, unspecified type R53.83 Fatigue type: unspecified Dyspnea on exertion R06.09 Paroxysmal atrial fibrillati on I48.0 Mixed hyperlipidemia E78.2 Hyperlipidemia type: mixed hyperlipidemia Essential hypertension I10 Hypertension type: essential hypertension Coding Level of Care Code Off vis,est,level 4 Diagno ses Sinus allan-tachy syndrome I49.5 Fatigue, unspecified type R53.83 Fatigue type: unspecified Dyspnea on exertion R06.09 Paroxysmal atrial fibrillation I48.0 Mixed hyperlipidemia E78.2 Hyperlipidemia type: mixed hyperlipidemia Essential hypertension I10 Hypertension type: essential hypertension 06/09/17 1205 <Electronically signed by Amna CARVER> Date Amna CARVER 06/09/17 1800<Electronically signed by Manoj Young MD> Cosigner Signature: Date ___ (if applicable) Manoj Young MD CC: Diana Troncoso MD 28-Apr-2017 Chest PA and Lateral Result: Comments: See Note; NOTES: [facility] Imaging Services [address] [place] [address] Chest PA and Lateral MR#: [id number] Acct: [id number] Name: MALI WALDEN Rep #: [id number] : 1940 F 76 From: Tex Junior DO PCP: Diana Troncoso MD Status: [facility] CLI Study: Chest PA and Lateral Date of Exam: 04/28/17 Exam# [id number] Ordering Dr: Katerine Campo DO STUDY: X-RAY CHEST REASON FOR EXAM: Female, 76 years old. Abnormal lung sounds. TECHNIQUE: PA and lateral views of the chest. COMPARISON: June 26, 2016. FINDINGS: The lungs are darlyn ar and expanded. There is no demonstrated pleural abnormality. Normal size heart. Normal mediastinum and glenys. Normal visualized pulmonary arteries. There is atherosclerotic calcification of the aortic arch with tortuosity. Normal visualized thoracic spine. Normal visualized ribs, clavicles, and shoulders. There is no demonstrated abnormality of the visualized soft tissue structures of the upper ab domen. RAD/Chest PA and Lateral IMPRESSION: No acute cardiopulmonary disease or interval change. Electronically Signed: Txe Junior DO at 9:39 EST Tel [phone], Service support , CC: Diana Troncoso MD; Katerine Campo DO Actor Understudy: Signed 02-Mar-2017 SCREENING MAMM (CAD), BILAT Result: Comments: See Note; NOTES: [facility] Imaging Services [address] [place] [id number] SCREENING MAMM (CAD), BILAT MR#: [id number] Acct: [id number] Name: MALI WALDEN Rep #: [id number] : 1940 F 76 From: Archie Alvares MD PCP: Diana Troncoso MD Status: REG CLI Study: SCREENING MAMM (CAD), BILAT Date of Exam: 03/02/17 Exam# [id number] Ordering Dr: Diana Troncoso MD MA MMOGRAPHY - BILATERAL SCREENING REASON FOR EXAM: Female, 76 years old. Routine annual screening examination. PERTINENT HISTORY: Non-contributory. TECHNIQUE: Digital bilateral breast danyel (3D mammogra phic acquisition) in the CC and MLO projections. 2-D mediolateral oblique (MLO) and craniocaudad (CC) views of both breasts were obtained. CAD: Full Field Digital Mammography with Computer Added Detecti on was performed. COMPARISON: Comparison is made with prior study dated January 22, 2016 and January 16, 2015. FINDINGS: Breast Composition: There are scattered ar eas of fibroglandular density. There are no dominant masses or suspicious calcifications. No other significant abnormalities are identified. There has been no significant change since the prior study. HPBI/SCREENING MAMM (CAD), BILAT IMPRESSION: Stable bilateral screening mammogram. Yearly follow-up mammogram recommended. (A) ASSESSMENT CATEGORY: BIRADS Category 1: Negative. A letter regarding these results will be sent to the patient by the facility within 30 days. Approximately 10% of breast cancers a re not detected by mammography. A normal mammogram should not delay biopsy of a clinically suspicious abnormality. [id number] Electronically Signed: Archie Alvares MD at 16:04 EST Tel [phone], Service support , CC: Diana Troncoso MD Actor Understudy: Signed 03-Jan-2017 Inital Evaluation (1) - PT Result: Comments: See Note; NOTES: [facility] Physical Therapy [facility] [address] [place] [address]. [address] [place] [address] Fax REHABILITATION SERVICES INITIAL EVALUATION MR#: [id number] Acct: [id number] Name: MALI WALDEN Rep #: [id number] : 1940 76 From: Moody Tang DPT Referring Dr.: Berto Carrillo MD Status: REG RCR [facility] Visit Information MALI WALDEN is a 76 year old F referred to Physical Therapy by Berto Carrillo with a diagnosis of unilateral primary OA of L knee, synovial cyst of popliteal space of L knee. D ate of Evaluation: 12/31/16 Physical Therapist: Moody L Sipos - Visit Plan Frequency: 2-3x /Week Duration: 4-6 Weeks Plan: Start with aquatic therapy to increase core and LLE strength. Include normali zed gait pattern. Progress to functional strengthening as tolerated. Ultimately getting back to land and silver sneakers exercises. - Subjective Subjective: Pt. is here today for her initial evaluation with diagnosis of unilateral primary osteoarthritis of L knee, synovial cyst of popliteal space of left knee. She is a plesant 76 y.o. female who reports having L medial and posterior knee pain for 2- 3 weeks. Symptoms started after playing golf. She reports I think I was twisting a lot while I was driving he ball and I felt a sharp pain. Pt. did have an injection while at her physi kelsi yesterday to medial knee. Pt. arrives today using a cane to off load her L knee. She reports having mild relief with injection yesterday. She reprots having an xray that showed no arthritis, but brent gnosis is for arthritis. She did say physician wants to do an MRI if PT is unsuccessful. Pt. is hopeful to reduce symptoms to get back to gym exercises with increased tolerance. - Pain Medial/foreclosure specialist ior L knee Pain Intensity (Out of 10): 4 Pain Intensity Range: 2, 6 - Objective POSTURE: Pt. has increased bilateral knee varus. Pt. has increased hip hip ER in stance. Equal iliasc crest hieghts. PALP ATION: Pt. has increased pain at medial joint line, along MCL, and throughout popliteal space. Increased edema noted throughout popliteal space on L side. No pain at patellar or quad tendons or along la teral joint line. NEUROLIOGICAL: Pt. has normal sensation to light and sharp touch of bilateral LEs. Pt. has 2+ patellar and achilles DTR bilaterally. Pt. is able to rise on heels and toes without issue s or LOB. ROM: R knee 0-0-132deg NE, L knee 0-0-129deg NE. Pt. reports mild increase in symptoms and end range ext (popliteal region). MMT: RLE- ankle 5/5 throghout; knee- 5/5 throghout; hip- flexion 4+ /5, abd 4/5, ext 4/5. LLE- ankle 5/5 throughout; knee- ext 4/5 mild increase NW, flexon 4/5 mild increase NW' hip- flexion 4/5 (mild increase in LS), abd 4/5, ext 4/5. Core strength- poor+. GAIT: Pt. am bulates with cane in R hand. Pt. has increased genu varus during L stance phase. Pt. has antalgic pattern during L stance phase and maintains knee ext throughout gait pattern. Increased antalgic pattern with cane removed. Increased pain noted with all gait. STAIRS: Pt. complets with step to pattern, 2 HR and only loads RLE. - Special Tests L Knee Dakota - Meniscus: Positive L Knee Apley - Meniscus: Positive L Knee Disco Test - Meniscus: Positive L Knee Anterior Drawer - ACL: Negative L Knee Posterior Drawer - PCL: Negative L Knee Valgus - MCL: Negative L Knee Varus - LCL: Negative - Goals Goal 1 :: Pt. to be I with HEP. Goal Time Frame: 4-6 Weeks Goal 2:: Pt. to report 0-1/10 pain in L knee with with all ambulation for unlimited distances. Goal Time Frame: 4-6 Weeks Goal 3:: Pt. to have increas ed LLE and core strength by 1/2 grade reducing stress applied to L knee with all functional mobility. Goal Time Frame: 4-6 Weeks Goal 4:: Pt. to have negotaite steps with 1 HR with recirpocal pattern wi th reports of 0-1/10 pain. Goal Time Frame: 4-6 Weeks Goal 5:: Pt. to have normalized gait pattern without use of AD. Goal Time Frame: 4-6 Weeks Goal 6:: Pt. to resume all gym and recreational activitie s without limitations. Goal Time Frame: 4-6 Weeks - Rehabilitation Potential Physical Therapy Diagnosis: unilateral primary osteoarthritis of L knee, synovial cyst of popliteal space of left knee. Unab le to rule out degenerative meniscal tear. She reports no locking of joint, just higher levels of pain disrupting her functional mobility. Pt. would benefit from PT to reduce symptoms, improve gait bailee candelaria and increase LLE strength. Rehabilitation Potential: Good - Anticipated Interventions Patient/Client Instruction: Educate patient on: Condition, Plan of Care, Risk Factors, Benefits of Fitness Prog [place] For the Purpose of:: To improve safety, To improve health and function, To foster healthy habits, To improve decision making, To facilitate caregiver knowledge, To improve self management, To preven t re-injury, To improve ability to perform tasks related to life management, To improve tolerance to ADL's Therapeutic Exercise to Include: Strength training, Power training, Endurance training, Balance training, Postural training, Flexibilty training, Gait and locomotor training, In an aquatic setting, Passive ROM, Active ROM, Dynamic Lumbar Stabilization For the Purpose of:: To dec rease pain, To decrease swelling/inflammation, To increase ROM, To improve nutrient delivery to tissue, To increase oxygenation perfusion, To improve muscle performance and motor function, To improve ga it and locomotor functions, To improve health of tissue, To decrease soft tissue restriction, To increase flexibility/ROM, To improve balance, To improve safety with gait Manual Therapy Techniques to In clude: Mobilization, Passive ROM For the Purpose of:: To decrease pain, To decrease swelling/inflammation, To increase ROM IF ES: Yes Cryotherapy (ice pack, ice massage): Yes Ultrasound (thermal/non the rmal): Yes For the Purpose of:: To decrease pain, To decrease swelling/inflammation, To increase ROM Thank you for the opportunity to evaluate your patient. For Medicare and Medicare HMO plans, ple ase review the plan of care and approve it. It will need to be FAXED BACK to us at [phone] for Medicare purposes. Please let me know if there are questions or concerns regarding this plan of care . Physician Signature: Date: <Electronically signed by Moody Tang DPT> 01/03/17 1457 CC: Diana Troncoso MD; Berto lawrence MD CLS Signed For Medicare only, by signing this I certify the plan of care. Physicians Signature Date 03-Dec-2016 Carotid Duplex Ultrasound Result: Comments: See Note; NOTES: [facility] Cardiovascular Services [address] [place] [address] Carotid Duplex Ultrasound 12/03/16 1106 MR#: [id number] Acct: [id number] Name: MALI WALDEN Rep #: [id number] : 1940 76 From: Charlie Aragon MD Attending Dr: Manoj Young MD Status: REG CLI Ordering Dr: Manoj Young MD Date: 12/03/16 Location: [facility] Sex: F C Admitted: Reason For Study: near syncope Rt. Velocities/BP Lt. Velocities/BP Prox CCA 75.0/13.5 cm/sec. Prox CCA 92.0/19.9 cm/sec. Mid CCA 83.3/18.2 cm/sec. Mid CCA 86.8/19.9 cm/sec. Dist CCA 69.8/19.3 cm/sec. D ist CCA 73.9/16.4 cm/sec. Prox ICA 92.7/25.9 cm/sec. Prox ICA 63.9/18.8 cm/sec. Mid ICA 105/23.6 cm/sec. Mid ICA 99.1/27.6 cm/sec. Dist ICA 85.5/25.3 cm/sec. Dist ICA 139/33.0 cm/sec. Rt. ICA/CCA = 1.3. Lt. ICA/CCA = 1.6. Prox ECA 125/12.6 cm/sec. Prox ECA 73.4/8.97 cm/sec. Rt. Vert. 67.6/22.0 cm/sec. Lt. Vert. 30.2/9.82 cm/sec. Right Extracranial There is heterogeneous, irregular atherosclerotic irma que noted in the right common carotid artery. There is heterogeneous, irregular atherosclerotic plaque noted in the right internal carotid artery. There is intimal thickening but no significant atherosc lerotic plaque noted in the right external carotid artery. Antegrade flow is noted in the right vertebral artery. Left Extracranial There is homogeneous, smooth atherosclerotic plaque noted in the left common carotid artery. There is heterogeneous, irregular atherosclerotic plaque noted in the left internal carotid artery. There is intimal thickening but no significant atherosclerotic plaque noted in the left external carotid artery. Antegrade flow is noted in the left vertebral artery. Procedure Carotid Duplex 48011. The exam was diagnostic. Exam performed in department. Interpretation Summary M ild (<50%) stenosis right extracranial internal carotid. Mild (<50%) stenosis left extracranial internal carotid. Flow within the vertebral arteries is antegrade bilaterally. Ordering Physician: Manoj Young Performed By: Rey Sánchez, RVT 12/03/162032 Date Charlie Aragon MD CC: Diana Troncoso MD; Manoj Young MD Date Dictated: 12/03/16 1106 Date Transcr ibed: 12/03/162032 Actor Understudy: Signed 28-Jul-2016 PT D/C Summary (1) Result: Comments: See Note; NOTES: [facility] Physical Therapy [address] [place] [address] Fax [facility] MR#: [id number] Acct: [id number] Name: MALI WALDEN Rep #: [id number] : 1940 75 From: Yolanda Cassidy PT, Cert. MDT Referring Dr.: Diana Troncoso MD Status: REG RCR Insurance: [facility] - PT D/C Summary It has been my pleasure to treat MALI WALDEN under orders from Diana Troncoso, for the diagnosis of LUMBAR DDD. LEFT LEG AND HIP PAIN. for a total of 15 visit(s). Discharge Anthony e: 07/28/16 Please see the following information for a summary of their discharge status. - Subjective Subjective: PATIENT REPORTS HER BACK IS 90% BETTER. SHE REPORTS SHE IS ABLE TO DO THE MACHINES W ITHOUT ANY PAIN NOW. 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 SHE DID FINE. - Pain LLE/L hip Pain Intensity (Out of 10): 0 - Overall Improvement % Improvement: 90 - Objective Objective/Function: ALL GOALS MET. PATIENT IS INDEP WITH LAND AND WATER EX PROGREAMS. UPON EXAM, - Goals Goal 1:: DECREASE C/O BACK AND LEFT LE SX'S Goal Progress: Goal Met Goal 2:: IMPROVE SITTING AND STANDING FUNCTION ALONG WITH ADL, HOBBY AND SLEEP FUNCTION Goal Progress: Goal Met Goal 3:: INSTRUCT IN PROPHYLAXIS Goal Progress: G oal Met - Plan Plan: D/C. PATIENT IS AGREEABLE TO DISCHARGE. - D/C Information If there are questions or concerns regarding this patient's physical therapy, please feel free to call me at [phone] . Thank you for the referral of this patient. Sincerely, Yolanda Cassidy <Electronically signed by Yolanda Cassidy PT, Cert. MDT> 07/28/16 1143 CC: Diana Troncoso MD TERESSA Signed 26-Jun-2016 Chest PA and Lateral Result: Comments: See Note; NOTES: [facility] Imaging Services [address] [place] [address] Verdana 4d Chest PA and Lateral MR#: [id number] Acct: [id number] Name: MALI WALDEN Vikas Rep #: [id number] : 1940 F 75 From: Rubens Waters MD PCP: Diana Troncoso MD Status: REG CLI Study: Chest PA and Lateral Date of Exam: 06/26/16 Exam# [id number] Ordering Dr: Marleni Kang DO STUDY: X-RAY C HEST REASON FOR EXAM: Female, 75 years old. Chest pain/pressure TECHNIQUE: PA and lateral views of the chest. COMPARISON: 06/06/14 FINDINGS: The lungs are clear a nd expanded. There is no demonstrated pleural abnormality. Normal size heart. Normal mediastinum and glenys. Normal visualized pulmonary arteries. Normal visualized aortic arch and descending thoracic ao rta. Normal visualized thoracic spine. Normal visualized ribs, clavicles, and shoulders. There is no demonstrated abnormality of the visualized soft tissue structures of the upper abdomen. RAD/Chest PA and Lateral IMPRESSION: Normal x-ray examination of the chest. Electronically Signed: Jorge Waters MD at 13:11 EST Tel , Service support [phone], CC: Diana Troncoso MD; Marleni Kang DO Actor Understudy: Signed 20-May-2016 Re-Evaluation - PT (1) Result: Comments: See Note; NOTES: [facility] Physical Therapy [facility] [address] [place] [address]. [address] [place], [place] [address] Fax REEVALUATION / MEDICARE RECERTI FICATION [place] 4d PHYSICAL THERAPY MR#: [id number] Acct: [id number] Name: MALI WALDEN Rep #: [id number] : 1940 75 From: Yolanda Cassidy PT, Cert. MDT Referring Dr.: Diana Troncoso MD Status: REG RCR [facility] Diana Troncoso, It has been my pleasure to treat MALI WALDEN over the last 10 visits for LUMBAR DDD. LEFT LEG AND HIP PAIN.. Please see the progress note below for an upda te on the physical therapy plan of care! Subjective: PATIENT REPORTS SHE IS ALL BETTER. PATIENT REPORTS SHE IS GOING TO CONTINUE HER WATER EX INDEP'LY AT THIS POINT. SHE STATES SHE IS READY TO TRY LAND AND WOULD LIKE TO HAVE LAND EX'S AN OPTION. Objective/Function: GREAT PROGRESS TOWARD ALL GOALS. DEMONSTRATING A GOOD UNDERSTANDING OF PRIOR POSTURE CONTROL INSTRUCTIONS. INDEP WATER EX PROGRAM. REC OMMEND TRANSITION TO LAND BASED THER EX WORKING TOWARD SAME GOALS WITH SAME POC. PATIENT AGREEABLE. Plan Plan: CONT ON LAND DECREASING TO 1X/WEEK X 4 WEEKS. 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 [facility] AND WILL CONT INDEP WATER EX AT THIS TIME ALONG WITH INTEGRATING A LAND PROGRAM Goals Goal 1:: DECREASE C/O BACK AND LEFT LE SX'S Goal Time Frame: 4-6 Weeks Goal Progress: Goal Met Goal 2:: IMPROVE SITTING AND STANDING FUNCTION ALONG WITH ADL, HOBBY AND SLEEP FUNCTION Goal Time Frame: 4-6 Weeks Goal Progress: Goal Met Goal 3:: INSTRUCT IN PROPHYLAXIS Goal Time Frame: 4-6 Weeks Goal Pr ogress: Progressing Anticipated Interventions Patient/Client Instruction: Educate patient on: Condition, Plan of Care, Risk Factors, Benefits of Fitness Program For the Purpose of:: To improve self man agement Therapeutic Exercise to Include: Strength training, Body mechanics, Postural training, Dynamic Lumbar Stabilization For the Purpose of:: To improve ability of physical actions for home/community /work/leisure Please do not hesitate to contact me at [phone] by phone or if you have questions or concerns regarding this new plan of care! Sincerely, Yolanda Cassidy < Electronically signed by Yolanda Cassidy PT, Cert. MDT> 05/20/16 1026 CC: Diana Troncoso MD TERESSA Signed For Medicare only, by signing this I certify the plan of care. _ Physicians Signature Date 07-May-2016 Liver Result: Comments: See Note; NOTES: [facility] Imaging Services [address] [place] [address] Verdana 4d Liver MR#: [id number] Acct: [id number] Name: MALI WALDEN Rep #: [id number] : 1940 F 75 From: Archie Alvares MD PCP: Diana Troncoso MD Status: REG CLI Study: Liver Date of Exam: 05/07/16 Exam# [id number] Ordering Dr: Diana Troncoso MD STUDY: ABDOMINAL ULTRASOUND - RIGHT UPPER QUADRANT REASON FOR VISIT: Female, 75 years old. The patient presents with a history of elevated liver enzymes. TECHNIQUE: Ultrasound evaluation of the right upper quadrant was performed with r eal-time and static singh-scale imaging. TECHNICAL QUALITY: Adequate. COMPARISON: Comparison is made with prior examination dated February 07, 2014. FINDINGS: Liver : The liver measures 14.4 cm. There is increased echogenicity consistent with fatty infiltration. The bile ducts are within normal limits. There is hepatic color flow. The direction of portal flow is he patopetal. There is no demonstrated mass lesion. Gallbladder: Normal distended gallbladder. The gallbladder wall measures 2.6 mm. There is a negative sonographic Joseph's sign. There is no pericholecys tic fluid. There are no gallstones. Common Bile Duct (C.B.D.): The common bile duct measures 2.2 mm. Pancreas: Normal size of the head, body and tail of the pancreas. There is normal echogenicity of t he pancreas. There is no demonstrated pancreatic mass or cyst. Right Kidney: Normal size of the right kidney. The right kidney measures 9.7 cm x 4.8 cm x 4.2 cm. Normal renal cortex. The right cortex m easures 1.0 cm. There is no demonstrated renal mass or cyst. There is no right hydronephrosis. US/Liver IMPRESSION: Fatty infiltration of the corine er. Electronically Signed: Archie Alvares MD at 10:59 EST Tel [phone], Service support [phone], CC: Diana Troncoso MD Actor Understudy: Signed 23-Apr-2016 Inital Evaluation (1) - PT Result: Comments: See Note; NOTES: [facility] Therapy [facility] [address] [place] [address]. [address] [place] [address] Fax REHABILITATION SERVICES INITIAL EVALUATION MR#: [id number] Acct: [id number] Name: MALI WALDEN Rep #: [id number] : 1940 75 From: Yolanda Cassidy PT, Cert. MDT Referring Dr.: Diana Troncoso MD Status: REG RCR [facility] Patient's Visit Information MALI WALDEN is a 75 year old F referred to Physical Therapy by Diana Troncoso with a diagnosis of LUMBAR DDD. LEFT LEG AND HIP PAIN.. Date of Evaluation: 04/23/16 Phys ical Therapist: Yolanda Cassidy - Visit Plan Frequency: 2-3x /Week Duration: 4- 6 Weeks Plan: AQUATIC THERAPY FOR PAIN RELEIF, DLS WITH A NEUTRAL SPINE, JACQUES LE STRENGTHENING. * POSTURE CORRECTION AND INST RUCTION IN PROPER BODY MECHANICS* NO BACKWARD BENDING. - Subjective Subjective: Work/Leisure: RETIRED. [employer]. Disability: NO. Present symptoms: LEFT LOW BACK, LEFT HIP, LEFT THIGH, AND LEFT LEG. STILL HAS SOME LEFT GROIN PAIN TOO BUT MUCH BETTER SINCE THE INJECTION WEDNESDAY. Present since: JANUARY 2016. Pain Scale: 0-3/10. Currently: 04/28. Commenced as a result of: NO APPARENT REASON. EXCESSIVE AMOUNT OF POTTERY WORK DONE PRIOR TO A SHOW. LIFTED A HEAVY BOX OF BELLA OFF THE BACK PORCH AT SOME POINT TOO. Symptoms at onset: LEFT BUTTOCK. Worse: STANDING, SITTING. Better: LYING DOWN WITH PILLOW U NDER KNEES. Disturbed sleep: YES. Previous history/Previous treatment: HOSPITALIZED ABOUT 4 OR 5 YEARS AGO FOR LEFT BACK PAIN THAT ENDED UP BEING A KIDNEY INFECTION. SHE STATES SHE WAS SEPTIC. Coughing/ sneezing/straining: POSITIVE. Gait: VOLUME LIMITED BECAUSE OF PAIN. STATES SHE IS WALKING NORMALLY FOR HER GIVEN HER CHRONIC FOOT AND ANKLE CONDITIONS. SHE REPORTS THIS PAIN REALLY LIMITED HOW MUCH S HE IS WALKING. PT HERE IN THE PAST FOR BALANCE ISSUES. H/O FALLS. Difficulty initiating urinatin: NO. Accidents: FALL TWO YEARS AGO - FX' D RIB. H/O 3 FALLS IN THE LAST 10 YEARS WITH EXPLANATION. FALLS NOT DUE TO DIZZINESS OR LIGHT HEADEDNESS. Unexplained weight loss: NO. Imaging: YES - SEE EMR FOR LUMBAR AND HIP/PELVIS X -RAYS. L45 GRADE 2 LYSTHESIS. PMH: CHRONIC FOOT PROBLEMS/DEFORMITY, RA, OA, A-FI B, LEFT RCR, UNREPAIRED RIGHT RCR. DIVERTICULITIS. OTHER: DR. TRONCOSO GAVE HER A CORTISONE SHOT IN HER LEFT HIP 04/21/16. PATIENT REPORTS SHE IS ABOUT 60% BETTER SINCE GETTING THE CORTISONE SHOT. PATIENT REPORTS SHE REALLY HAS NOT BEEN DOING MUCH LATELY. STATES SHE HAS BEEN NOTICING FOR AWHILE NOW THAT SHE LOOKS CROOKED IN A MIRROR. SOMETIME AFTER THE PAIN STARTED SHE ALSO HAD A BIT OF A FALL WHEN HER G RANDDAUGHTER WAS HELPING HER UP FROM THE FLOOR. - Objective Sitting Posture: POOR. Standing Posture: POOR. Lateral shift: LEFT LATERAL SHIFT. Relevant shift: NO. Active Correction of posture: NO EFFECT OR BETTER. Other Observations: PATIENT MOVES QUICKLY. INDEP SIT TO STAND WITHOUT USE OF HER UE'S. Motor deficit: JACQUES LE STRENGTH GROSSLY 5/5 WITH MMT. Sensory deficit: JACQUES LE LIGHT TOUCH SENSATION INTA CT AND SYMMETRICAL BUT FEET NT. ROM deficit: JACQUES LE HYPERMOBILITY. Dural Signs: NEGATIVE JACQUES LE'S BUT I SUSPECT TESTING IS LESS RELIABLE DUE TO HYPERMOBILITY. Lumbar mvmt loss: flex - NIL. ext - MOD. R SG - MOD. L SG - MIN. Core strength: POOR. Palpation: NO BACK OR HIP TENDERNESS. OTHER: DECREASED POSTURAL AWARENESS - Goals Goal 1:: DECREASE C/O BACK AND LEFT LE SX'S Goal Time Frame: 4-6 Weeks Goal 2:: IMPROVE SITTING AND STANDING FUNCTION ALONG WITH ADL, HOBBY AND SLEEP FUNCTION Goal Time Frame: 4-6 Weeks Goal 3:: INSTRUCT IN PROPHYLAXIS Goal Time Frame: 4- 6 Weeks - Rehabilitation Potential Reha bilitation Potential: Good - Anticipated Interventions Patient/Client Instruction: Educate patient on: Condition, Plan of Care, Risk Factors, Benefits of Fitness Program For the Purpose of:: To improve self management Therapeutic Exercise to Include: Strength training, Body mechanics, Postural training, Dynamic Lumbar Stabilization For the Purpose of:: To improve ability of physical actions for home/ community/work/leisure Thank you for the opportunity to evaluate your patient. For Medicare and Medicare HMO plans, please review the plan of care and approve it. It will need to be FAXED BACK to u s at [phone] for Medicare purposes. Please let me know if there are questions or concerns regarding this plan of care. Physician Signature: Date: <Electronically signed by Yolanda Cassidy PT, Cert. MDT> 04/23/16 1029 CC: Diana Troncoso MD TERESSA Signed For Medicare only, by signing this I cert kassy the plan of care. Physicians Signature Date 10-Feb-2016 Hip 2-3 Views with Pelvis Result: Comments: See Note; NOTES: [facility] Imaging Services [address] [place] [address] Verda 4d Hip 2-3 Views with Pelvis MR#: [id number] Acct: [id number] Name: MALI WALDEN Rep #: [id number] : 1940 F 75 From: Archie Alvares MD PCP: Diana Troncoso MD Status: REG CLI Study: Hip 2-3 Views with Pelvis Date of Exam: 02/10/16 Exam# [id number] Ordering Dr: Diana Troncoso MD STUDY: X-RAY - PELVIS AND LEFT HIP REASON FOR EXAM: Female, 75 years old. Low back pain and left hip pain. History of rheumatoid arthritis. TECHNIQUE: Radiological exam, hip, unilateral, with p andrea when performed; 2 or 3 views. COMPARISON: None. FINDINGS: There is a non-specific bowel gas pattern. There is a 1.7 cm well- defined calcification in the pelvi s most likely representing a calcified fibroid. There are atherosclerotic vascular calcifications. There is narrowing with cortical sclerosis and osteophyte formation of the sacroiliac joint consistent with degenerative osteoarthritic changes. Normal bilateral superior and inferior pubic rami. There is narrowing with sclerosis of the pubic symphysis. Normal bilateral ischial tuberosities. Normal vi sualized femoral head. There is osteoarthritic spur formation of the acetabular rim. There is mild articular joint space narrowing of the hip. R AD/Hip 2-3 Views with Pelvis IMPRESSION: Mild degree of degenerative changes of the left hip joint. Electronically Signed: Archie Alvares MD at 13:03 EDT Tel [phone], Service support [phone], CC: Diana Troncoso MD Actor Understudy: Signed 10-Feb-2016 L/S Spine Min 4 Views Result: Comments: See Note; NOTES: [facility] Imaging Services [address] [place] [id number] [place] 4d L/S Spine Min 4 Views MR#: [id number] Acct: [id number] Name: MALI WALDEN Rep #: [id number] : 1940 F 75 From: Archie Alvares MD PCP: Diana Troncoso MD Status: REG CLI Study: L/S Spine Min 4 Views Date of Exam: 02/10/16 Exam# [id number] Ordering Dr: Diana Troncoso MD S TUDY: X-RAY - LUMBAR SPINE REASON FOR EXAM: Female, 75 years old. Chronic low back pain and left hip pain. TECHNIQUE: 5 view(s) of the lumbar spine were obtained. COMPARISON: None FINDINGS: Normal lumbar lordosis. There is no substantial scoliosis. Grade 2 anterolisthesis of L4 on L5 with moderate degree of disc space narrowing and spondylosis at the L4-L5 and L 5-S1 levels. There is mild endplate spondylosis of the lumbar vertebrae. Facet joint osteoarthritis. There is atherosclerotic calcification of the abdominal aorta without a demonstrated aneurysm. ____ RAD/L/S Spine Min 4 Views IMPRESSION: Degenerative changes of the spine, as detailed above. Grade 2 anterior listhesis of L4 on L5. Electronically Signed: Archie Alvares MD at 12:46 EDT Tel [phone], Service support [phone], CC: Diana Troncoso MD Actor Understudy: Signed 22-Jan-2016 Bilat Scrn Digital AND CAD Result: Comments: See Note; NOTES: [facility] Imaging Services [address] [place] [address] Ver[place] 4d Bilat Scrn Digital AND CAD MR#: [id number] Acct: [id number] Name: MALI WALDEN Rep #: [id number] : 1940 F 75 From: Archie Alvares MD PCP: Diana Troncoso MD Status: REG CLI Study: Bilat Scrn Digital AND CAD Date of Exam: 01/22/16 Exam# [id number] Ordering Dr: Dereck Troncoso MD MAMMOGRAPHY - BILATERAL SCREENING REASON FOR EXAM: Female, 75 years old. Routine annual screening examination. PERTINENT HISTORY: Non-contributory. TECHNIQUE: Digital bilateral breast danyel ( 3D mammographic acquisition) in the CC and MLO projections. 2-D mediolateral oblique (MLO) and craniocaudad (CC) views of both breasts were obtained. CAD: Full Field Digital Mammography with Computer Ad ded Detection was performed. COMPARISON: Comparison is made with prior study dated January 16, 2015 and August 22, 2013. FINDINGS: Breast Composition: There are scatt ered areas of fibroglandular density. There are no dominant masses or suspicious calcifications. No other significant abnormalities are identified. There has been no significant change since the prior study. HPBI/Bilat Scrn Digital AND CAD IMPRESSION: Stable bilateral screening mammogram. Yearly follow-up mammogram recommended. (A) ASSESSMENT CATEGORY: BIRADS Category 1: Negative. A letter regarding these results will be sent to the patient by the facility within 30 days. Approximately 10% of breast ca ncers are not detected by mammography. A normal mammogram should not delay biopsy of a clinically suspicious abnormality. [id number] Electronically Signed: Archie Alvares MD at 10:36 EDT T [phone], Service support [phone], CC: Diana Troncoso MD Actor Understudy: Signed 08-Feb-2015 Emergency Department Summary Result: Comments: See Note; NOTES: [facility] Medical Records Department [address] [place] [address] Emergency Department Summary MR#: [id number] Acct: [id number] Name: MALI WALDEN Rep #: [id number] : 1940 74 From: Solomon Morse MD PCP: Diana Troncoso MD Status: DEP ER DATE OF SERVICE: 02/07/2015 CHIEF COMPLAINT: Foreign body ingestion. HISTORY OF P RESENT ILLNESS: A 74-year-old female was eating lunch with the plastic fork one of the tines broke off and she accidentally ingested it, she felt a sharp discomfort in the back of her throat, she poi nts in the area of her right vallecula, she took a drink of water she felt the same thing on the other side. She took another drink of water and she then swallowed it and her symptoms resolved. She de nies at any point in time having dyspnea, cough, choking or chest discomfort. This occurred about 3-1/2 hours ago. She denies any abdominal discomfort, nausea or vomiting. She is on no anticoagulants. She has a follow up with Dr. Ribeiro scheduled in 4 days for recent episode of diverticulitis. PHYSICAL EXAMINATION: VITAL SIGNS: She is afebrile. Vital signs are normal. GENERAL: She is well appea ring, in no acute distress. LUNGS: Her exam is normal including equal breath sounds bilaterally. ABDOMEN: Soft, nontender, nondistended abdomen with normal bowel sounds present. EMERGENCY DEPARTMENT COURSE: Dr. Ribeiro agrees that expectant management is indicated for this particular problem. The fany on her fork that she accidentally swallowed was approximately 3 cm long. They brought the fork with them for me to inspect. There is a very likely chance that it will pass through the pylorus on its own without difficulty or incident or symptom. She is advised to follow up with Dr. Ribeiro as sc heduled in 4 days, returning if she has any new abdominal symptoms. IMPRESSION: Accidentally ingested foreign body. DISPOSITION: Home. CONDITION: Stable. Solomon Hernandez C: Diana Ribeiro MD T: N[facility] JOB: [id number] 02/08/15 0119 <Electronically signed by Solomon Morse MD> Date Solomon Morse MD Cosigner Signature (If Indicated): Date CC: Diana Troncoso MD; Naga Ribeiro Date Dictated: 02/07/151633 Date Transcribed: 02/07/151633 Actor Understudy: Signed 07-Feb-2015 Discharge Instruction Result: Comments: See Note; NOTES: [facility] Medical Records Department [address] [place] [address] Discharge Instruction 02/07/151630 MR#: [id number] Acct: [id number] Name: MALI WALDEN Rep #: [id number] : 1940 74 From: Solomon Morse MD PCP: Diana Troncoso MD Status: REG ER ED Disposition - Plan for ED Patient: Disposition: Home or Assisted Living Chief Complaint: Foreign Body Instructions: ED Swallowed Foreign Body (Adult) Referrals: Naga Ribeiro MD [STAFF PHYSICIAN] - Keep Purvi appointment Additional Instructions: return to the ER if yo u have any new abdominal symptoms/pain. What to do if you have Problems For any increased pain, shortness of breath, bleeding, nausea or vomiting, chest pain, or any unexpected problems, contact your doctor. Call [facility] ([phone]) or report to the closest Emergency Room. Call 911 if necessary. 02/07/15 1632 <Electronically signed by Solomon Morse MD> Date Solomon Morse MD Cosigner Signature (If Indicated): Date CC: Diana Troncoso MD 18-Jan-2015 Nuclear Stress Test - Treadmil Result: Comments: See Note; NOTES: [facility] Imaging Services [address] [place] [address] STRESS TEST REPORT 01/18/15 0925 MR#: [id number] Acct: [id number] Name: MALI WALDEN Rep #: [id number] : 1940 74 From: Manoj Young MD Primary Care: Diana Troncoso MD Status: REG CLI Ordering Dr: Manoj Young MD Service Date: 01/18/15 Order Date: 01/18/15 Sex: F C DATE OF SERVICE: 01/18/2015 EXERCISE TOLERANCE TEST: The patient exercised on a Kit protocol for 7 minutes completing stage 2 and 1 minute of stage 3, achieving a peak heart rate of 125 beats per minute (85% predicted maximum heart rate) and a peak blood pressure of 180/84 mmHg and a peak MET capacity of approximately 8 METS. The baseline ECG demonstrated sinus bradycardia. The peak exercis e ECG demonstrated somatic motion artifact with no obvious ECG changes. There was a rare PA-C during recovery. The functional capacity was considered good. The patient had no complaint of chest d iscomfort during exercise or recovery. The examination was discontinued secondary to dyspnea and leg discomfort. IMPRESSION: 1. Technically adequate (percent predicted maximum heart rate greater th an 85%) exercise tolerance test. 2. Peak exercise ECG with somatic/motion artifact with no obvious ECG changes. 3. Rare PA-Cs during recovery. 4. Nuclear images pending. MYOCARDIAL PERFUSION IMAGI NG STUDY: TECHNIQUE: The patient was injected with 12.0 mCi of Tc99m Cardiolite and subsequently rest SPECT Cardiolite nuclear imaging was obtained in the horizontal long, vertical long and short a xes views. The patient exercised on a Kit protocol for 7 minutes completing stage 2 and 1 minute of stage 3, achieving a peak heart rate of 125 beats per minute (85% predicted maximum heart rate) an d a peak blood pressure of 180/84 mmHg and a peak MET capacity of 8 METS. The patient was injected with 34.5 mCi of Tc99m Cardiolite and subsequently stress SPECT Cardiolite nuclear imaging was obtain ed in the horizontal long, vertical long and short axes views. A gated Cardiolite study at peak stress was obtained. INTERPRETATION: Rest and stress SPECT Cardiolite nuclear imaging, status post angie lignment and normalization, demonstrates an element of extracardiac/hepatic and gastrointestinal tracer uptake near the inferior segments which was more prominent on the resting views as opposed to t he stress views. Otherwise, there appears to be relative uniform tracer uptake and myocardial perfusion appearing within normal limits. There was end systolic thickening and brightening. The gated Car diolite study demonstrates myocardial thickening and inward wall motion. The reported LVEF is 67%. IMPRESSION 1. Rest and stress SPECT Cardiolite nuclear imaging demonstrate relative uniform tracer uptake and myocardial perfusion appearing within normal limits. 2. The gated Cardiolite study reports an LVEF of 67%. Manoj Young MD T: [facility] JOB: [id number] 01/18/15 1221 <Chapito jara signed by Manoj Young MD> Date Manoj Young MD CC: Diana Troncoso MD; Manoj Young MD Date Dictated: 01/18/15924 Date Lux scribed: 01/18/15924 Actor Understudy: Signed 16-Jan-2015 Bilat Scrn Digital AND CAD Result: Comments: See Note; NOTES: [facility] Imaging Services [address] [place] [address] Breast Imaging Report MR#: [id number] Acct: [id number] Name: MALI WALDEN Rep #: [id number] : 1940 F 74 From: Archie Alvares MD PCP: Diana Troncoso MD Status: REG CLI Study: Bilat Scrn Digital AND CAD Date of Exam: 01/16/15 Exam# [id number] Ordering Dr: Diana Troncoso MD MAMMOGRAPHY - BILATERAL SCREENING REASON FOR EXAM: Female, 74 years old. Routine annual screening examination. PERTINENT HISTORY: Non-contributory. TECHNIQUE: Digital examination. Mediolatera l oblique (MLO) and craniocaudad (CC) views of both breasts were obtained. CAD: CAD was performed on this study. COMPARISON: Comparison is made with prior study dated August 22, 2013 and June 08. FINDINGS: Breast Composition: There are scattered areas of fibroglandular density. There are no dominant masses or suspicious calcifications. No other si gnificant abnormalities are identified. There has been no significant change since the prior study. IMPRESSION: Stable bilateral screening mammogram. Yearly foll ow-up recommended. (A) ASSESSMENT CATEGORY: BIRADS Category 1: Negative. A letter regarding these results will be sent to the patient by the facility within 30 days. Approximately 10% of breast cancers are not detected by mammography. A normal mammogram should not delay biopsy of a clinically suspicious abnormality. Electronically Signed: Archie belle MD at 15:35 EDT Tel [phone], Service support [phone], CC: Diana Troncoso MD Actor Understudy: Signed 16-Dec-2014 Emergency Department Summary Result: Comments: See Note; NOTES: [facility] Medical Records Department [address] [place] [address] Emergency Department Summary MR#: [id number] Acct: [id number] Name: MALI WALDEN Rep #: [id number] : 1940 74 From: George Colvin DO PCP: Diana Troncoso MD Status: DEP ER DATE OF SERVICE: 12/16/2014 CHIEF COMPLAINT: Abdominal pain. HISTORY OF PRESENT ILLNESS: This is a 74-year-old female with abdominal discomfort that started yesterday, describes it as center of her lower abdomen. The patient rates it 5-6/10, worse with movement. She has had low-grade fev er up to ____ at home. Denies any urinary symptoms. She has not had discomfort like this before. The patient does have a history of rheumatoid arthritis and history of AFib. She is on flecainide and o ther meds to keep her in rhythm. She also takes a biological medicine injection for her rheumatoid arthritis and therefore, she states that she gets worried when she develops a fever. PAST MEDICAL H ISTORY: Significant for rheumatoid and AFib. PAST SURGICAL HISTORY: None. PRIMARY CARE PHYSICIAN: Diana Troncoso M.D. ALLERGIES: Novocain and Robaxin. SOCIAL HISTORY: The patient does not sm danica or drink alcohol. PHYSICAL EXAMINATION: VITAL SIGNS: On presentation, blood pressure 156/72, temperature 99.4, heart rate 71, respiratory rate 16. GENERAL APPEARANCE: She is awake, alert, in no acute distress. She is nontoxic appearing. HEENT: Normocephalic, atraumatic. Pupils equal, react to light. TMs are clear. NECK: Supple. Mucous membranes moist. CARDIOVASCULAR: Heart is regular rate and rhythm. LUNGS: Clear. No rales or wheezes. ABDOMEN: Soft. Tender to palpation over the suprapubic region with some guarding. There is no rebound, rigidity, or peritoneal signs. No masses palpate d. EXTREMITIES: Intact x4. Muscle strength +5/5. Exam otherwise unremarkable. EMERGENCY DEPARTMENT COURSE: An IV line was established. CBC with differential obtained showed a slightly elevated whi te count of 13,000. Chemistries were unremarkable. LFTs and lipase were normal. Urinalysis was normal. She had a CT flank that showed acute diverticulitis of the sigmoid colon without evidence of perf oration or abscess. At this point, the patient will be started on Augmentin. She tells me she cannot take Cipro because of some other medications that she is on for her AFib. The patient will be disch arged to home. DIAGNOSIS: Acute diverticulitis, sigmoid colon on Augmentin. Instructed to follow up with her primary care physician in 3-5 days, to return if worsening pain, fever, vomiting, or co ndition worsens in any way. DISPOSITION: Discharged to home in stable condition. George Colvin DO T: N[facility] JOB: [id number] 12/16/14 1607 <Electronically signed by George Colvni DO> Date George Colvin DO Cosigner Signature (If Indicated): Date CC: Diana Troncoso MD Date D ictated: 12/16/141039 Date Transcribed: 12/16/141039 Actor Understudy: Signed 16-Dec-2014 Discharge Instruction Result: Comments: See Note; NOTES: [facility] Medical Records Department [address] [place] [address] Discharge Instruction 12/16/14 1036 MR#: [id number] Acct: [id number] Name: MALI WALDEN Rep #: [id number] : 1940 74 From: George Colvin DO PCP: Diana Troncoso MD Status: REG ER ED Disposition - Plan for ED Patient: Chief Complaint: Abd Pain Instructions: ED Di verticulitis Prescriptions: Hydrocodone Bitart/Apap 5-325 [[place] 5/325] 1 - 2 tablet PO Q4H PRN PRN #20 tablet PRN Reason: Pain Amox/Clavulanate Tablet [Augmentin Tablet] 875 mg PO Q12H #20 tablet Referrals: Diana Troncoso MD [Primary Care Provider] - 3-5 Days What to do if you have Problems For any increased pain, shortness of breath, bleeding, nausea or vomiting, chest pain, or any unexp ected problems, contact your doctor. Call [facility] ([phone]) or report to the closest Emergency Room. Call 911 if necessary. 12/16/14 1037 <Electronically signed by George martines DO> Date George Colvin DO Cosigner Signature (If Indicated): Date CC: Diana Troncoso MD 16-Dec-2014 Abdomen/Pelvis without Cont Result: Comments: See Note; NOTES: [facility] Imaging Services [address] [place], [place] [id number] CAT Scan Report MR#: [id number] Acct: [id number] Name: MALI WALDEN Rep #: [id number] : 1940 F 74 From: Miguel Tidwell PCP: Diana Troncoso MD Status: REG ER Study: Abdomen/Pelvis without Cont Date of Exam: 12/16/14 Exam# [id number] Ordering Dr: George Colvin DO STUDY: CT AB DOMEN AND PELVIS WITHOUT CONTRAST REASON FOR EXAM: Female, 74 years old. Lower abdominal pain. RADIATION DOSAGE (If Supplied By Facility): CTDIvol = ( 16.01 ) mGy, DLP = ( 823.47 ) mGycm TECHNIQU E: Transaxial images were obtained from the dome of the diaphragm to the symphysis pubis without oral contrast, and without intravenous contrast. Sagittal and coronal images were reconstructed. COMP [facility]: July 30, 2010 FINDINGS: The visualized lung bases are unremarkable. The visualized portions of the heart are within normal limits. Normal liver. Melissa l gallbladder and extrahepatic biliary system. Normal spleen. Normal pancreas. Normal bilateral adrenal glands. Normal right kidney. The left kidney demonstrate the presence of 2 mm calcification at the mid pole, nonobstructing stones versus vascular calcifications. There is a small hiatal hernia. Normal small intestine. There is diverticulosis, with thickening of the sigmoid wall, and per icolonic inflammation changes consistent with acute diverticulitis. The appendix is visualized and appears normal. There is diffuse atherosclerotic calcification of the abdominal aorta, without a d emonstrated aneurysm. Normal inferior vena cava. Normal retroperitoneum. Normal urinary bladder. The uterus is abnormal in contour, likely leiomyomatous. Normal abdominal wall. There are diffuse d egenerative changes of the visualized lumbar spine. IMPRESSION: Findings are consistent with acute diverticulitis without evidence of perforation or abscess for mation. Extensive aortoiliac atherosclerosis. Electronically Signed: Miguel Tidwell MD at 10:32 EDT Tel , Service support [phone], CC: Diana wright MD; George Colvin DO Actor Understudy: Signed 13-Nov-2014 Echocardiogram Complete Result: Comments: See Note; NOTES: [facility] Cardiovascular Services [address] [place] [address] Echo Complete 11/13/14 0720 MR#: [id number] Acct: [id number] Name: MARÍA ELENA WALDEN E Rep #: [id number] : 1940 74 From: Manoj Young MD Attending Dr: Manoj Young MD Status: REG CLI Ordering Dr: Manoj Young MD Date: 11/13/14 Location: [facility] Sex: F C Admitted: Procedure This was a 2D Doppler, Color Flow transthoracic echocardiogram. The exam was of adequate technical quality. Exam performed in department. Left Ventricle Normal LV size. Left ventricular systolic function is normal. The estimated ejection fraction is 55 %. Septal bounce. No regional wall motion abnormalities noted. Right Ventricle Normal RV size. Normal systolic function. Atria Normal left atrium. Normal right atrium. No doppler evidence for ASD. Mitral Valve There is no mitral annular calcification. Normal mitral valve. Mild (1+) mitral valve insufficiency. Tricuspid V alve Normal tricuspid valve. Mild tricuspid valve insufficiency. Right ventricular systolic pressure estimated to be 30 mmHg. Aortic Valve Trisinus/trileaflet aortic valve. Mild focal aortic valve thickening. Trivial aortic valve insufficiency. Pulmonic Valve The pulmonic valve is not well visualized. Mild (1+) pulmonic valve insufficiency. Great Vessels Normal sized aortic root. Perica rdium/Pleural No pericardial effusion. MMode/2D Measurements AND Calculations LVIDd: 4.6 cm IVSd: 1.1 cm Ao root diam: 2.9 cm LAV(MOD-bp): 41.8 ml LVIDs: 3.3 cm LVPWd: 1.1 cm Ao root area: 6.6 cm2 LAV(MOD-bp) Indexed: 24.0 ml /m2 RVDd: 2.8 cm FS: 28.6 % LA dimension: 3.6 cm LAV(MOD-sp2): 46.6 ml LAV(MOD-sp4): 30.4 ml LA A4 area: 13.3 cm2 RA A4 area: 10.2 cm2 Doppler Measurements AND Calculations MV E max robles: Lat Peak E' Robles: Med Peak E' Robles: Ao V2 max: 48.0 cm/sec 7.1 cm/sec 4.4 cm/sec 149.9 cm/sec MV A max robles: Ao max P.0 mmHg 79.4 cm/sec MV E/A: 0.60 LV V1 max: 85.6 cm/sec PA V2 max: 86.2 cm/sec TR max robles: 250.9 cm/sec E/E' lat: 6.8 LV V1 max P.9 mmHg PA max P.0 mmHg TR max P.3 mmHg E/E' med: 10.9 Interp retation Summary Left ventricular systolic function is normal. The estimated ejection fraction is 55 %. Septal bounce. Mild (1+) mitral valve insufficiency. Mild tricuspid valve insufficiency. Mil d focal aortic valve thickening. Trivial aortic valve insufficiency. Mild (1+) pulmonic valve insufficiency. Right ventricular systolic pressure estimated to be 30 mmHg. Ordering Physician: Manoj Young Referring Physician: Diana Troncoso M.D. Performed By: Shyla Vasques JULIO Elec tronically signed by: Manoj Young MD on 11/13/2014 08:55 PM 11/13/142054 Date Manoj Young MD CC: Diana Troncoso MD; Manoj Young MD Date Dictated: 11/13/14719 Date Transcribed: 11/13/142054 Actor Understudy: Signed 22-Aug-2014 PT Discharge Summary Result: Comments: See Note; NOTES: [facility] Physical Therapy [facility] [facility] [place], [place] [address] Fax REHABILITATION SERVICES DISCHARGE SUMMARY MR#: [id number] Acct: [id number] Name: MALI WALDEN Rep #: [id number] : 1940 73 From: Anibal Decker Referring Dr.: ELI GARCIA Status: REG RCR Eval Date: Discharge Da te: DATE OF SERVICE: 08/20/2014 PHYSICIAN: Dr. Garcia. DIAGNOSIS: Rheumatoid arthritis/osteoarthritis deconditioning, unsteadiness. Mali Walden has been seen in my office for a total of 10 v isits. She was seen initially back in mid June with the latest visit being on August 20, 2014 and treated with balance assessment, balance exercises, general strengthening, progression to independenc e. She has made good progress as far as strength goes according to her. She does not feel like she has any more steady than she was before. Objectively, her balance test show that she is more stead y. She is scoring 30/ 30 on the functional gait assessment today and an 11-point improvement on the sensory organization test, both of which are now well within normal limits for her age. She has met the goal of having at least 28/30 on the functional gait assessment, scoring 30. She has not met the goal of 64/80 on lower extremity functional scale. She comes in at 62/80, which is a 7-point im provement over her initial evaluation. She is independent with appropriate long- term exercise program and has a membership here at [facility] as she will continue on her own and she is scoring melissa l on the [employer] balance test. At this point, based on these results, I am discharging her from my care to her home exercise program and should be noted that she feels like her medications are the problem with her feelings of unsteadiness and will address this with doctor at her followup. Anibal Decker, PT T: N[facility] JOB: [id number] <Electronically signed by Anibal Decker > 08/22/14 0746 CC: Signed 02-Jul-2014 Chest PA and Lateral Result: Comments: See Note; NOTES: [facility] Imaging Services [address] [place] [address] Radiology Report MR#: [id number] Acct: [id number] Name: MALI WALDEN Rep #: [id number] : 1940 F 73 From: Rubens Waters MD PCP: Diana Troncoso MD Status: REG CLI Study: Chest PA and Lateral Date of Exam: 07/02/14 Exam# [id number] Ordering Dr: Diana Troncoso MD STUDY: X-RAY CH EST REASON FOR EXAM: Female, 73 years old. Cough TECHNIQUE: PA and lateral views of the chest. COMPARISON: 06/06/14 FINDINGS: The lungs are clear and expand ed. There is no demonstrated pleural abnormality. Normal size heart. Normal mediastinum and glenys. Normal visualized pulmonary arteries. Normal visualized aortic arch and descending thoracic aorta. Normal visualized thoracic spine. Normal visualized ribs, clavicles, and shoulders. There is no demonstrated abnormality of the visualized soft tissue structures of the upper abdomen. IMPRESSION: No acute pulmonary process, no interval change. Electronically Signed: Jorge Waters MD at 14:51 EDT Tel , Service support [phone] [id number], RAD/Chest PA and Lateral IMPRESSION: No acute pulmonary process, no interval change. Electronically Signed: Jorge Waters MD at 14:51 EDT Tel , Service support [phone], CC: Diana Troncoso MD Actor Understudy: Signed 28-Jun-2014 Inital Evaluation - PT Result: Comments: See Note; NOTES: [facility] Physical Therapy Health[address] [place] [address] Fax REHABILITATION SERVICES INITIAL EVALUATION MR#: [id number] Acct: [id number] Name: MALI WALDEN Rep #: [id number] : 1940 73 From: Anibal Decker Referring Dr.: ELI GARCIA Status: REG R Insurance: [employer] MCR E [place] Date: DATE OF SERVICE: 06/27/2014 REFERRING PHYSICIAN: Dr. Garcia. DIAGNOSES: Unsteadiness and arthritis. SUBJECTIVE: Mali Walden is a 73-year-old female who reports that she is here be cause she has fallen 4 times in the last 2 years. She knows this is, just because I moved too fast and she thinks that it is possibly due to her foot deformity as she shows me very valgus big toe on both feet, but she feels a little less steady than she used to, 1 fall was in the shower, her foot slipped on soap, one fall was on a trip to [employer] when the dog walked in front of her in the dark in her shoe and she stepped on her shoelace, one fall was on the ice last winter, so she does not think that she is doing too bad. She thinks those could happen to anyone. Otherwise her activities are normal. She has admittedly stopped working out. She is a [employer] member here at [facility], but has not been able to get her heart rate up because of this medication she is on, just does not feel like she has a right exercise program. She tried yoga yesterday, but had to stop after half hour as it was very hot. She had a little bit sweaty. She has history of left r otator cuff, which was fixed, right biceps rupture, which is not going to be fixed and she makes excuses with these. She is not sure what exercises to do with these. She does not have any neuropath y. She does not have any pain unless she is on her feet too much, which than her feet do bother her. She does not have any dizziness. She does walk on the treadmill every now and then. She can claudia ate a bike okay, but she hates it and really she wants to find out about her balance and see if she can get a workout that she enjoys here that will get her in better shape. She has history of AFib, high blood pressure, rheumatoid arthritis, which she says is in remission from an injection she gets every month. Her goals are better balance and strength. OBJECTIVE: The patient ambulates into physical therapy, no acute distress. She ambulates normally, transfers without use of her upper extremities from the chair independently. She is able to do steps up and down reciprocally without a railing today. She does have a prominent right biceps appearing like it was ruptured at some point. She has big toe valgus on both feet overlapping her 2nd toe. She scores 26/30 on functional gait a ssessment. She is able to stand Romberg position eyes open, eyes closed 30 seconds, but on foam about 3 seconds with her eyes open, 1 second with her eyes closed. Lower extremity range of motion i s within functional limits, although her toes are a little stiff and she has some tightness in the hamstrings and heel cords. Upper extremity range of motion is within functional limits and without p ain. Upper extremity strength 4/5 with the exception of right shoulder flexion, which is weak and a little bit painful in the anterior shoulder 4-/5. Lower extremity strength is 4/5. Sensation in th e lower extremities is within normal limits to gross light touch. Reflexes at the patella and Achilles are 1/ 3. Coordination, reciprocal heel and toe tapping is good. Gqyn-ms-rsst test is good. Re ciprocal hand tapping is good. 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 GOALS: 1. She will score at least 20/30 on functional gait assessment to help improve her balance. 2. She will score at least 64/80 [facility] functional scale to help show improved mobility. 3. She will be independent with appropriate home exercise or gym-based exercise program for strengthening and balance. 4. She will score normal o n the NeuroCom battery of balance test. PLAN: At this point, I plan to have this patient for balance assessment on the NeuroCom and then likely will treat her 2 times a week for 4-6 weeks for darren shepherd exercises and activities, general cardiovascular, upper extremity rotator cuff and lower extremity strengthening exercises and progression to an independent [employer] program, which she is more than willing to pursue and she was agreeable to this course of therapy. I did spend some time today educating her on some of her possible dangers with balance and course of therapy and encoura ging her regarding workout and she also spent 5 minutes on a NuStep. Anibal Decker, PT T: NTS JOB: [id number] <Electronically signed by Anibal Decker > 06/28/14 0929 CC: DD: 0 06/27/14 Signed For Medicare only, by signing this I certify the plan of care. Physicians Signature Date 06-Jun-2014 Chest PA and Lateral Result: Comments: See Note; NOTES: [facility] Imaging Services [address] [place] [id number] Radiology Report MR#: [id number] Acct: [id number] Name: MALI WALDEN Rep #: [id number] : 1940 F 73 From: Archie Alvares MD PCP: Diana Troncoso MD Status: REG CLI Study: Chest PA and Lateral Date of Exam: 06/06/14 Exam# [id number] Ordering Dr: Jacquelyn Garcia STUDY: X-RAY CHEST REASON FOR EXAM: Female, 73 years old. History of pneumonia. TECHNIQUE: PA and lateral views of the chest. COMPARISON: Comparison is made with prior study dated December 27, 2012. FINDINGS: There is elevation of the right hemidiaphragm. Calcified old granulomatous disease. There is no demonstrated pleural abnormality. Normal size heart. Normal m ediastinum and glenys. Normal visualized pulmonary arteries. There is atherosclerotic calcification of the aortic arch with tortuosity. There is demineralization of the osseous structures. Prior rotat or cuff repair of the left shoulder. There is no demonstrated abnormality of the visualized soft tissue structures of the upper abdomen. IMPRESSION: No acute abnormality is seen. Electronically Signed: Archie Alvares MD at 15:28 EST Tel [phone], Service support [phone], CC: Jacquelyn Garcia; Diana Troncoso MD Actor Understudy: Signed 09-Apr-2014 Knee 4 or More Views Result: Comments: See Note; NOTES: [facility] Imaging Services [address] [place] [address] Radiology Report MR#: [id number] Acct: [id number] Name: MALI WALDEN Rep #: [id number] : 1940 F 73 From: Rubens Waters MD PCP: Diana Troncoso MD Status: REG CLI Study: Knee 4 or More Views Date of Exam: 04/09/14 Exam# [id number] Ordering Dr: Katerine Campo DO STUDY: X-RAY - RIGHT KNEE REASON FOR EXAM: Female, 73 years old. Pain after fall TECHNIQUE: 4 view(s) of the knee. COMPARISON: 12/05/12 FINDINGS: Normal visualized dista l femur. Normal visualized proximal tibia and fibula. Normal proximal tibiofibular articulation. There is mild degenerative arthrosis of the medial femorotibial compartment. Normal lateral femorotib ial compartment. There is mild degenerative arthrosis of the patellofemoral articulation. The soft tissue structures are unremarkable. IMPRESSION: Age consiste nt arthrosis, no fracture or aggressive osseous lesion Electronically Signed: Jorge Waters MD at 12:15 EST , Service support [phone], CC: Diana Troncoso MD; Katerine Campo DO Actor Understudy: Signed 09-Apr-2014 Ribs Unil 2V No CXR Result: Comments: See Note; NOTES: [facility] Imaging Services [address] [place] [address] Radiology Report MR#: [id number] Acct: [id number] Name: MALI WALDEN Rep #: [id number] : 1940 F 73 From: Rubens Waters MD PCP: Diana Troncoso MD Status: REG CLI Study: Ribs Unil 2V No CXR Date of Exam: 04/09/14 Exam# [id number] Ordering Dr: Katerine Campo DO STUDY: X-RAY - UNILATERAL RIBS ( RIGHT ) REASON FOR EXAM: Female, 73 years old. Pain after fall in the shower TECHNIQUE: 2 view(s) of the ribs. COMPARISON: 09/25/13 FINDING S: Normal visualized ribs without a demonstrated fracture. The visualized lung is clear and expanded. IMPRESSION: Normal x-ray examination of the ribs. Electr onically Signed: Jorge Waters MD at 12:11 EST , Service support [phone], CC: Diana Troncoso MD; Katerine Campo DO Actor Understudy: Signed 07-Feb-2014 Liver Result: Comments: See Note; NOTES: [facility] Imaging Services [address] [place] [address] Ultrasound Report MR#: [id number] Acct: [id number] Name: MALI WALDEN Rep #: [id number] : 1940 F 73 From: Archie Alvares MD PCP: Diana Troncoso MD Status: REG CLI Study: Liver Date of Exam: 02/07/14 Exam# [id number] Ordering Dr: Jacquelyn Garcia STUDY: ABDOMINAL ULTRASOUND - RIGHT UPPER QUADRANT REASON FOR VISIT: Female, 73 years old. Elevated liver enzymes. TECHNIQUE: Ultrasound evaluation of the right upper quadrant was performed with real-time and static singh-sca le imaging. TECHNICAL QUALITY: Adequate. COMPARISON: None. FINDINGS: Liver: The liver measures 14.3 cm. There is increased echogenicity consistent with fatt y infiltration. The bile ducts are within normal limits. There is hepatic color flow. The direction of portal flow is hepatopetal. There is no demonstrated mass lesion. Gallbladder: Normal distended gallbladder. The gallbladder wall measures 2.5 mm. There is a negative sonographic Joseph's sign. There is no pericholecystic fluid. There are no gallstones. Common Bile Duct (C.B.D.): The common b ile duct measures 3.2 mm. Pancreas: Normal size of the head, body and tail of the pancreas. There is normal echogenicity of the pancreas. There is no demonstrated pancreatic mass or cyst. Right Ki dney: Normal size of the right kidney. The right kidney measures 9.4 cm x 4.5 cm x 4.2 cm. Normal renal cortex. The right cortex measures 0.9 cm. There is no demonstrated renal mass or cyst. There is no right hydronephrosis. IMPRESSION: Normal right upper quadrant ultrasound examination. Electronically Signed: Arcihe Alvares MD at 10:36 ED T Tel [phone], Service support [phone], CC: Jacquelyn Garcia; Diana Troncoso MD Actor Understudy: Signed 25-Sep-2013 Ribs Unil 2V No CXR Result: Comments: See Note; NOTES: [facility] Imaging Services [address] [place] [address] Radiology Report MR#: [id number] Acct: [id number] Name: MALI WALDEN Vikas Rep #: [id number] : 1940 F 72 From: Archie Alvares MD PCP: Diana Troncoso MD Status: REG CLI Study: Ribs Unil 2V No CXR Date of Exam: 09/25/13 Exam# [id number] Ordering Dr: Jacquelyn Garcia STUDY: X-RAY - UNILATERAL RIBS ( RIGHT ) REASON FOR EXAM: Female, 72 years old. Anterior rib pain following a fall. TECHNIQUE: 2 view(s) of the ribs. COMPARISON: None. FI NDINGS: There is evidence of a nondisplaced fracture of the anterior aspect of the right eighth rib. The visualized lung is clear and expanded. IMPRESSION: Nond isplaced fracture involving the anterior aspect of the right eighth rib. Electronically Signed: Archie Alvares MD at 15:44 EDT Tel [phone], Service support [phone], Fax CC: Jacquelyn Garcia; Diana Troncoso MD Actor Understudy: Signed 22-Aug-2013 Crissy Lott [employer] & CAD Result: Comments: See Note; NOTES: [facility] Imaging Services [address] [place], [place] [id number] Breast Imaging Report MR#: [id number] Acct: [id number] Name: MALI WALDEN Rep #: [id number] : 1940 F 72 From: Archie Alvares MD PCP: Diana Troncoso MD Status: REG CLI Exam# [id number] Ordering Dr: Diana Troncoso MD MAMMOGRAPHY - BILATERAL SCREENING REASON FOR EXAM: Katherin milian, 72 years old. Routine annual screening examination. PERTINENT HISTORY: Non-contributory. TECHNIQUE: Digital examination. Mediolateral oblique (MLO) and craniocaudad (CC) views of both breas ts were obtained. CAD: CAD was performed on this study. COMPARISON: Comparison is made with prior study dated June 08, 2012 and May 19, 2011. FINDINGS: The breast composition is composed of scattered fibroglandular tissues ranging from 25% to 50% of the breast. There are no dominant masses or suspicious calcifications. No other significant abnor malities are identified. There has been no significant change since the prior study. IMPRESSION: Stable bilateral screening mammogram. Yearly follow-up recommend ed. (A) ASSESSMENT CATEGORY: BIRADS Category 2: Benign finding(s). A letter regarding these results will be sent to the patient by the facility within 30 days. Approximately 10% of breast cancers are not detected by mammography. A normal mammogram should not delay biopsy of a clinically suspicious abnormality. Electronically Signed: Corey Monson at 11:24 EDT Tel [phone], Service support [phone], CC: Diana Troncoso MD Actor Understudy: Signed Immunization Name Dates Details Influenza (3 years and up) on: 08-Feb-2007 Comments: given in left deltoid, 0.5cc, lot#[id number], [id number] WF Influenza (3 years and up) on: 20-Mar-2008 Comments: Lot #[id number]-right deltoidDose0.5mlgiven by Caro Vail LPN Influenza (3 years and up) on: 11-Jan-2009 Comments: Lot #[id number]-Left deltoidgiven by:FLIP Pneumococcal (2 years and up) on: 07-Jan-2015 Comments: Site: Deltoid (Left) Lot #: <Undefined> Pneumococcal conjugate vaccine, 13 valent, IM Comments: winter 2016 [facility] Family History Unknown Family Member Name Dates Details Brother 1 Comments: Bladder CA, prostate, smoker Status: Active Brother 2 Comments: of [place] 66yo, obese Status: Active Daughter 1 Comments: fo fall alcholism Status: Active Family Members In General Comments: ETOH, Emotiional, Heart/Lung, High cholesterol, suicide Status: Active Father Comments: Suicide, manic depressive, MVP Status: Active Mother Comments: Heart dx 40 's, fibromyalgia Status: Active Sister 1 Comments: uterine cancer Status: Active Sister 2 Comments: healthy Status: Active Son 1 Comments: Pancreatitis alcholism Status: Active Social History Name Dates Details Alcohol Use Comments: not have any alcohol since got afib Status: Active Caffeine Use Comments: 2 QD Status: Active Exercise History Comments: walk but limited by feet. 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 Comments: Remotely quit tobacco use, greater 20 years stopped. 20/d for 25 years Status: Active Smoking Status Name Dates Details Former smoker Vital Signs Date Test Result Details :01 Temperature 97.6 f Comments: Method: Oral Pulse 70 /min Comments: Pattern: Regular Respiration Rate 18 /min O2 SAT 98 % Comments: Room air BP Systolic 130 mm[Hg] Comments: Patient Position: Sitting BP Diastolic 70 mm[Hg] Comments: Patient Position: Sitting Weight 162 lb :44 Temperature 97.6 f Comments: Method: Temporal Pulse 88 /min Comments: Pattern: Regular Respiration Rate 20 /min Comments: Pattern: Unlabored O2 SAT 97 % Comments: Room air BP Systolic 124 mm[Hg] Comments: Patient Position: Sitting; Cuff Location: Left Arm; Cuff Size: Standard BP Diastolic 80 mm[Hg] Comments: Patient Position: Sitting; Cuff Location: Left Arm; Cuff Size: Standard Weight 159 lb Height 61.5 in Body Mass Index Calculated 29.56 kg/m2 Body Surface Area Calculated 1.72 m2 :56 Temperature 97.6 f Comments: Method: Temporal Pulse 68 /min Comments: Pattern: Regular Respiration Rate 20 /min Comments: Pattern: Unlabored O2 SAT 97 % Comments: Room air BP Systolic 120 mm[Hg] Comments: Patient Position: Sitting; Cuff Location: Left Arm; Cuff Size: Standard BP Diastolic 70 mm[Hg] Comments: Patient Position: Sitting; Cuff Location: Left Arm; Cuff Size: Standard Weight 161 lb Height 61.5 in Body Mass Index Calculated 29.93 kg/m2 Body Surface Area Calculated 1.73 m2 :34 Temperature 97.6 f Comments: Method: Temporal Pulse 94 /min Comments: Pattern: Regular Respiration Rate 20 /min Comments: Pattern: Unlabored O2 SAT 98 % Comments: Room air BP Systolic 120 mm[Hg] Comments: Patient Position: Sitting; Cuff Location: Left Arm; Cuff Size: Standard BP Diastolic 78 mm[Hg] Comments: Patient Position: Sitting; Cuff Location: Left Arm; Cuff Size: Standard Weight 161 lb Height 61.5 in Body Mass Index Calculated 29.93 kg/m2 Body Surface Area Calculated 1.73 m2 :16 Temperature 97.3 f Comments: Method: Temporal Pulse 61 /min Comments: Pattern: Regular Respiration Rate 16 /min Comments: Pattern: Unlabored O2 SAT 95 % Comments: Room air BP Systolic 118 mm[Hg] Comments: Patient Position: Sitting; Cuff Location: Left Arm; Cuff Size: Standard BP Diastolic 62 mm[Hg] Comments: Patient Position: Sitting; Cuff Location: Left Arm; Cuff Size: Standard Weight 159 lb Height 61.5 in Body Mass Index Calculated 29.56 kg/m2 Body Surface Area Calculated 1.72 m2 :37 Temperature 97.6 f Comments: Method: Temporal Pulse 58 /min Comments: Pattern: Regular Respiration Rate 20 /min Comments: Pattern: Unlabored O2 SAT 95 % Comments: Room air BP Systolic 144 mm[Hg] Comments: Patient Position: Sitting; Cuff Location: Left Arm; Cuff Size: Standard BP Diastolic 86 mm[Hg] Comments: Patient Position: Sitting; Cuff Location: Left Arm; Cuff Size: Standard Weight 159 lb Height 61.5 in Body Mass Index Calculated 29.56 kg/m2 Body Surface Area Calculated 1.72 m2 :07 Temperature 97.8 f Comments: Method: Temporal Pulse 48 /min Comments: Pattern: Regular Respiration Rate 18 /min Comments: Pattern: Unlabored O2 SAT 98 % Comments: Room air BP Systolic 122 mm[Hg] Comments: Patient Position: Sitting; Cuff Location: Left Arm; Cuff Size: Large BP Diastolic 88 mm[Hg] Comments: Patient Position: Sitting; Cuff Location: Left Arm; Cuff Size: Large Weight 156 lb Height 61.5 in Body Mass Index Calculated 29 kg/m2 Body Surface Area Calculated 1.71 m2 :39 Temperature 97.6 f Comments: Method: Temporal Pulse 60 /min Comments: Pattern: Regular Respiration Rate 20 /min Comments: Pattern: Unlabored O2 SAT 98 % Comments: Room air BP Systolic 128 mm[Hg] Comments: Patient Position: Sitting; Cuff Location: Left Arm; Cuff Size: Standard BP Diastolic 80 mm[Hg] Comments: Patient Position: Sitting; Cuff Location: Left Arm; Cuff Size: Standard Weight 156 lb Height 61.5 in Body Mass Index Calculated 29 kg/m2 Body Surface Area Calculated 1.71 m2 :29 Temperature 97.9 f Comments: Method: Temporal Pulse 56 /min Comments: Pattern: Regular Respiration Rate 20 /min Comments: Pattern: Unlabored O2 SAT 97 % Comments: Room air BP Systolic 110 mm[Hg] Comments: Patient Position: Sitting; Cuff Location: Left Arm; Cuff Size: Standard BP Diastolic 74 mm[Hg] Comments: Patient Position: Sitting; Cuff Location: Left Arm; Cuff Size: Standard Weight 156.0375 lb Height 61.5 in Body Mass Index Calculated 29.01 kg/m2 Body Surface Area Calculated 1.71 m2 :07 Temperature 97.6 f Comments: Method: Temporal Pulse 55 /min Comments: Pattern: Regular Respiration Rate 20 /min Comments: Pattern: Unlabored O2 SAT 98 % Comments: Room air BP Systolic 120 mm[Hg] Comments: Patient Position: Sitting; Cuff Location: Left Arm; Cuff Size: Standard BP Diastolic 70 mm[Hg] Comments: Patient Position: Sitting; Cuff Location: Left Arm; Cuff Size: Standard Weight 159 lb Height 62 in Body Mass Index Calculated 29.08 kg/m2 Body Surface Area Calculated 1.73 m2 :47 Temperature 97.6 f Comments: Method: Temporal Pulse 48 /min Comments: Pattern: Regular Respiration Rate 20 /min Comments: Pattern: Unlabored O2 SAT 95 % Comments: Room air BP Systolic 164 mm[Hg] Comments: Patient Position: Sitting; Cuff Location: Left Arm; Cuff Size: Standard BP Diastolic 80 mm[Hg] Comments: Patient Position: Sitting; Cuff Location: Left Arm; Cuff Size: Standard Weight 159 lb Height 62 in Body Mass Index Calculated 29.08 kg/m2 Body Surface Area Calculated 1.73 m2 :28 Temperature 97.9 f Comments: Method: Temporal Pulse 50 /min Comments: Pattern: Regular Respiration Rate 20 /min Comments: Pattern: Unlabored O2 SAT 98 % Comments: Room air BP Systolic 114 mm[Hg] Comments: Patient Position: Sitting; Cuff Location: Left Arm; Cuff Size: Standard BP Diastolic 76 mm[Hg] Comments: Patient Position: Sitting; Cuff Location: Left Arm; Cuff Size: Standard Weight 159 lb Height 62 in Body Mass Index Calculated 29.08 kg/m2 Body Surface Area Calculated 1.73 m2 :01 Temperature 97.6 f Comments: Method: Temporal Pulse 74 /min Comments: Pattern: Regular Respiration Rate 20 /min Comments: Pattern: Unlabored O2 SAT 97 % Comments: Room air BP Systolic 140 mm[Hg] Comments: Patient Position: Sitting; Cuff Location: Left Arm; Cuff Size: Standard BP Diastolic 80 mm[Hg] Comments: Patient Position: Sitting; Cuff Location: Left Arm; Cuff Size: Standard Weight 159 lb Height 62 in Body Mass Index Calculated 29.08 kg/m2 Body Surface Area Calculated 1.73 m2 :44 Temperature 97 f Comments: Method: Temporal Pulse 68 /min Comments: Pattern: Regular Respiration Rate 20 /min Comments: Pattern: Unlabored O2 SAT 97 % Comments: Room air BP Systolic 138 mm[Hg] Comments: Patient Position: Sitting; Cuff Location: Left Arm; Cuff Size: Standard BP Diastolic 78 mm[Hg] Comments: Patient Position: Sitting; Cuff Location: Left Arm; Cuff Size: Standard Weight 159 lb Height 62 in Body Mass Index Calculated 29.08 kg/m2 Body Surface Area Calculated 1.73 m2 :11 Temperature 97.4 f Comments: Method: Temporal Pulse 60 /min Comments: Pattern: Regular Respiration Rate 16 /min Comments: Pattern: Unlabored O2 SAT 91 % Comments: Room air BP Systolic 120 mm[Hg] Comments: Patient Position: Sitting; Cuff Location: Left Arm; Cuff Size: Standard BP Diastolic 60 mm[Hg] Comments: Patient Position: Sitting; Cuff Location: Left Arm; Cuff Size: Standard Weight 157 lb Height 62 in Body Mass Index Calculated 28.72 kg/m2 Body Surface Area Calculated 1.72 m2 :36 Temperature 97.6 f Comments: Method: Temporal Pulse 56 /min Comments: Pattern: Regular Respiration Rate 20 /min Comments: Pattern: Unlabored O2 SAT 95 % Comments: Room air BP Systolic 130 mm[Hg] Comments: Patient Position: Sitting; Cuff Location: Left Arm; Cuff Size: Standard BP Diastolic 76 mm[Hg] Comments: Patient Position: Sitting; Cuff Location: Left Arm; Cuff Size: Standard Weight 157 lb Height 62 in Body Mass Index Calculated 28.72 kg/m2 Body Surface Area Calculated 1.72 m2 :44 Pulse 64 /min Comments: Pattern: Regular BP Systolic 180 mm[Hg] Comments: Patient Position: Supine; Cuff Location: Left Arm; Cuff Size: Standard BP Diastolic 90 mm[Hg] Comments: Patient Position: Supine; Cuff Location: Left Arm; Cuff Size: Standard :44 Pulse 64 /min Comments: Pattern: Regular BP Systolic 160 mm[Hg] Comments: Patient Position: Sitting; Cuff Location: Left Arm; Cuff Size: Standard BP Diastolic 90 mm[Hg] Comments: Patient Position: Sitting; Cuff Location: Left Arm; Cuff Size: Standard :32 Temperature 97.9 f Comments: Method: Temporal Pulse 58 /min Comments: Pattern: Regular Respiration Rate 20 /min Comments: Pattern: Unlabored O2 SAT 98 % Comments: Room air BP Systolic 170 mm[Hg] Comments: Patient Position: Supine; Cuff Location: Left Arm; Cuff Size: Standard BP Diastolic 84 mm[Hg] Comments: Patient Position: Supine; Cuff Location: Left Arm; Cuff Size: Standard Weight 158 lb Height 62 in Body Mass Index Calculated 28.9 kg/m2 Body Surface Area Calculated 1.73 m2 :48 Temperature 97.9 f Comments: Method: Temporal Pulse 74 /min Comments: Pattern: Regular Respiration Rate 20 /min Comments: Pattern: Unlabored O2 SAT 97 % Comments: Room air BP Systolic 136 mm[Hg] Comments: Patient Position: Sitting; Cuff Location: Left Arm; Cuff Size: Standard BP Diastolic 78 mm[Hg] Comments: Patient Position: Sitting; Cuff Location: Left Arm; Cuff Size: Standard Weight 158 lb Height 62 in Body Mass Index Calculated 28.9 kg/m2 Body Surface Area Calculated 1.73 m2 :36 Temperature 97.9 f Comments: Method: Temporal Pulse 78 /min Comments: Pattern: Regular Respiration Rate 20 /min Comments: Pattern: Unlabored O2 SAT 98 % Comments: Room air BP Systolic 142 mm[Hg] Comments: Patient Position: Sitting; Cuff Location: Left Arm; Cuff Size: Standard BP Diastolic 84 mm[Hg] Comments: Patient Position: Sitting; Cuff Location: Left Arm; Cuff Size: Standard Weight 162 lb Height 62 in Body Mass Index Calculated 29.63 kg/m2 Body Surface Area Calculated 1.75 m2 :59 Temperature 97.6 f Comments: Method: Temporal Pulse 74 /min Comments: Pattern: Regular Respiration Rate 20 /min Comments: Pattern: Unlabored O2 SAT 97 % Comments: Room air BP Systolic 120 mm[Hg] Comments: Patient Position: Sitting; Cuff Location: Left Arm; Cuff Size: Standard BP Diastolic 78 mm[Hg] Comments: Patient Position: Sitting; Cuff Location: Left Arm; Cuff Size: Standard Weight 162 lb Height 62 in Body Mass Index Calculated 29.63 kg/m2 Body Surface Area Calculated 1.75 m2 :40 Temperature 98 f Pulse 58 /min Comments: Pattern: Regular Respiration Rate 16 /min Comments: Pattern: Unlabored O2 SAT 96 % Comments: Room air BP Systolic 118 mm[Hg] Comments: Patient Position: Sitting; Cuff Location: Left Arm; Cuff Size: Standard BP Diastolic 68 mm[Hg] Comments: Patient Position: Sitting; Cuff Location: Left Arm; Cuff Size: Standard Weight 157 lb Height 62 in Body Mass Index Calculated 28.72 kg/m2 Body Surface Area Calculated 1.72 m2 :20 Temperature 97.2 f Comments: Method: Tympanic Pulse 85 /min Comments: Pattern: Regular Respiration Rate 18 /min Comments: Pattern: Unlabored BP Systolic 122 mm[Hg] Comments: Patient Position: Sitting; Cuff Location: Left Arm; Cuff Size: Standard BP Diastolic 78 mm[Hg] Comments: Patient Position: Sitting; Cuff Location: Left Arm; Cuff Size: Standard Weight 157 lb Height 62 in Body Mass Index Calculated 28.72 kg/m2 Body Surface Area Calculated 1.72 m2 :52 Temperature 97.6 f Comments: Method: Temporal Pulse 68 /min Comments: Pattern: Regular Respiration Rate 18 /min Comments: Pattern: Unlabored O2 SAT 95 % Comments: Room air BP Systolic 140 mm[Hg] Comments: Patient Position: Sitting; Cuff Location: Left Arm; Cuff Size: Standard BP Diastolic 78 mm[Hg] Comments: Patient Position: Sitting; Cuff Location: Left Arm; Cuff Size: Standard Weight 157 lb Height 62 in Body Mass Index Calculated 28.72 kg/m2 Body Surface Area Calculated 1.72 m2 :49 Temperature 98.6 f Comments: Method: Oral Pulse 71 /min Comments: Pattern: Regular Respiration Rate 18 /min Comments: Pattern: Unlabored O2 SAT 95 % Comments: Room air BP Systolic 148 mm[Hg] Comments: Patient Position: Sitting; Cuff Location: Left Arm; Cuff Size: Standard BP Diastolic 80 mm[Hg] Comments: Patient Position: Sitting; Cuff Location: Left Arm; Cuff Size: Standard Weight 155 lb Height 62 in Body Mass Index Calculated 28.35 kg/m2 Body Surface Area Calculated 1.72 m2 :25 Temperature 96.9 f Comments: Method: Tympanic Pulse 85 /min Comments: Pattern: Regular Respiration Rate 18 /min Comments: Pattern: Unlabored O2 SAT 92 % Comments: Room air BP Systolic 140 mm[Hg] Comments: Patient Position: Sitting; Cuff Location: Left Arm; Cuff Size: Standard BP Diastolic 72 mm[Hg] Comments: Patient Position: Sitting; Cuff Location: Left Arm; Cuff Size: Standard Weight 155 lb Height 62 in Body Mass Index Calculated 28.35 kg/m2 Body Surface Area Calculated 1.72 m2 :26 Temperature 97.6 f Comments: Method: Temporal Pulse 64 /min Comments: Pattern: Regular Respiration Rate 18 /min Comments: Pattern: Unlabored O2 SAT 97 % Comments: Room air BP Systolic 120 mm[Hg] Comments: Patient Position: Sitting; Cuff Location: Left Arm; Cuff Size: Standard BP Diastolic 80 mm[Hg] Comments: Patient Position: Sitting; Cuff Location: Left Arm; Cuff Size: Standard Weight 162 lb Height 62 in Body Mass Index Calculated 29.63 kg/m2 Body Surface Area Calculated 1.75 m2 :57 Temperature 97.9 f Comments: Method: Temporal Pulse 68 /min Comments: Pattern: Regular Respiration Rate 18 /min Comments: Pattern: Unlabored O2 SAT 95 % Comments: Room air BP Systolic 108 mm[Hg] Comments: Patient Position: Sitting; Cuff Location: Left Arm; Cuff Size: Standard BP Diastolic 70 mm[Hg] Comments: Patient Position: Sitting; Cuff Location: Left Arm; Cuff Size: Standard Weight 157 lb Height 62 in Body Mass Index Calculated 28.72 kg/m2 Body Surface Area Calculated 1.72 m2 :34 Temperature 97.6 f Comments: Method: Temporal Pulse 74 /min Comments: Pattern: Regular Respiration Rate 18 /min Comments: Pattern: Unlabored O2 SAT 97 % Comments: Room air BP Systolic 110 mm[Hg] Comments: Patient Position: Sitting; Cuff Location: Left Arm; Cuff Size: Standard BP Diastolic 70 mm[Hg] Comments: Patient Position: Sitting; Cuff Location: Left Arm; Cuff Size: Standard Weight 157 lb Height 62 in Body Mass Index Calculated 28.72 kg/m2 Body Surface Area Calculated 1.72 m2 :49 Temperature 97.9 f Comments: Method: Temporal Pulse 64 /min Comments: Pattern: Regular Respiration Rate 18 /min Comments: Pattern: Unlabored O2 SAT 98 % Comments: Room air BP Systolic 116 mm[Hg] Comments: Patient Position: Sitting; Cuff Location: Left Arm; Cuff Size: Standard BP Diastolic 74 mm[Hg] Comments: Patient Position: Sitting; Cuff Location: Left Arm; Cuff Size: Standard Weight 159 lb Height 62 in Body Mass Index Calculated 29.08 kg/m2 Body Surface Area Calculated 1.73 m2 :40 Temperature 96.5 f Pulse 64 /min Comments: Pattern: Regular O2 SAT 96 % Comments: Room air BP Systolic 110 mm[Hg] Comments: Patient Position: Sitting; Cuff Location: Left Arm; Cuff Size: Standard BP Diastolic 68 mm[Hg] Comments: Patient Position: Sitting; Cuff Location: Left Arm; Cuff Size: Standard Weight 161 lb Height 62 in Body Mass Index Calculated 29.45 kg/m2 Body Surface Area Calculated 1.74 m2 :55 Temperature 94.9 f Comments: Method: Temporal Pulse 61 /min Comments: Pattern: Regular Respiration Rate 16 /min Comments: Pattern: Unlabored O2 SAT 96 % Comments: Room air BP Systolic 126 mm[Hg] Comments: Patient Position: Sitting; Cuff Location: Left Arm; Cuff Size: Standard BP Diastolic 78 mm[Hg] Comments: Patient Position: Sitting; Cuff Location: Left Arm; Cuff Size: Standard Weight 162 lb Height 62 in Body Mass Index Calculated 29.63 kg/m2 Body Surface Area Calculated 1.75 m2 :47 Temperature 98.2 f Comments: Method: Oral Pulse 54 /min Comments: Pattern: Regular Respiration Rate 15 /min O2 SAT 98 % Comments: Room air BP Systolic 130 mm[Hg] Comments: Patient Position: Sitting; Cuff Location: Left Arm; Cuff Size: Standard BP Diastolic 70 mm[Hg] Comments: Patient Position: Sitting; Cuff Location: Left Arm; Cuff Size: Standard Weight 165 lb Height 62 in Body Mass Index Calculated 30.18 kg/m2 Body Surface Area Calculated 1.76 m2 :14 Temperature 96.3 f Pulse 60 /min Comments: Pattern: Regular Respiration Rate 16 /min Comments: Pattern: Unlabored O2 SAT 98 % Comments: Room air BP Systolic 118 mm[Hg] Comments: Patient Position: Sitting; Cuff Location: Left Arm; Cuff Size: Standard BP Diastolic 72 mm[Hg] Comments: Patient Position: Sitting; Cuff Location: Left Arm; Cuff Size: Standard Weight 165 lb Height 62 in Body Mass Index Calculated 30.18 kg/m2 Body Surface Area Calculated 1.76 m2 :04 Temperature 98.9 f Pulse 78 /min Comments: Pattern: Regular Respiration Rate 18 /min Comments: Pattern: Unlabored O2 SAT 96 % Comments: Room air BP Systolic 122 mm[Hg] Comments: Patient Position: Sitting; Cuff Location: Left Arm; Cuff Size: Standard BP Diastolic 78 mm[Hg] Comments: Patient Position: Sitting; Cuff Location: Left Arm; Cuff Size: Standard Weight 165 lb Height 62 in Body Mass Index Calculated 30.18 kg/m2 Body Surface Area Calculated 1.76 m2 [id number] Pulse 58 /min Comments: Pattern: Regular Respiration Rate 18 /min Comments: Pattern: Unlabored O2 SAT 98 % Comments: Room air BP Systolic 142 mm[Hg] Comments: Patient Position: Sitting; Cuff Location: Left Arm; Cuff Size: Large BP Diastolic 82 mm[Hg] Comments: Patient Position: Sitting; Cuff Location: Left Arm; Cuff Size: Large Weight 165 lb Height 62 in Body Mass Index Calculated 30.18 kg/m2 Body Surface Area Calculated 1.76 m2 :08 Temperature 97.4 f Comments: Method: Oral Pulse 58 /min Comments: Pattern: Regular Respiration Rate 18 /min O2 SAT 96 % Comments: Room air BP Systolic 124 mm[Hg] Comments: Patient Position: Sitting; Cuff Location: Left Arm; Cuff Size: Standard BP Diastolic 72 mm[Hg] Comments: Patient Position: Sitting; Cuff Location: Left Arm; Cuff Size: Standard Weight 165 lb Height 62 in Body Mass Index Calculated 30.18 kg/m2 Body Surface Area Calculated 1.76 m2 :40 Temperature 97.4 f Comments: Method: Temporal Pulse 64 /min Comments: Pattern: Irregular Respiration Rate 16 /min Comments: Pattern: Unlabored O2 SAT 98 % Comments: Room air BP Systolic 132 mm[Hg] Comments: Patient Position: Sitting; Cuff Location: Left Arm; Cuff Size: Standard BP Diastolic 74 mm[Hg] Comments: Patient Position: Sitting; Cuff Location: Left Arm; Cuff Size: Standard Weight 165 lb Height 62 in Body Mass Index Calculated 30.18 kg/m2 Body Surface Area Calculated 1.76 m2 :15 Temperature 97.8 f Comments: Method: Oral Pulse 60 /min Comments: Pattern: Regular Respiration Rate 16 /min O2 SAT 98 % Comments: Room air BP Systolic 126 mm[Hg] Comments: Patient Position: Sitting; Cuff Location: Left Arm; Cuff Size: Standard BP Diastolic 70 mm[Hg] Comments: Patient Position: Sitting; Cuff Location: Left Arm; Cuff Size: Standard Weight 162.6 lb Height 62 in Body Mass Index Calculated 29.74 kg/m2 Body Surface Area Calculated 1.75 m2 :18 Temperature 98.1 f Comments: Method: Temporal Pulse 72 /min Comments: Pattern: Regular Respiration Rate 16 /min Comments: Pattern: Unlabored O2 SAT 96 % Comments: Room air BP Systolic 128 mm[Hg] Comments: Patient Position: Sitting; Cuff Location: Left Arm; Cuff Size: Standard BP Diastolic 70 mm[Hg] Comments: Patient Position: Sitting; Cuff Location: Left Arm; Cuff Size: Standard Weight 162.6 lb Height 62 in Body Mass Index Calculated 29.74 kg/m2 Body Surface Area Calculated 1.75 m2 :13 Temperature 97.8 f Comments: Method: Oral Pulse 54 /min Comments: Pattern: Regular Respiration Rate 18 /min Comments: Pattern: Unlabored O2 SAT 97 % Comments: Room air BP Systolic 118 mm[Hg] Comments: Patient Position: Sitting; Cuff Location: Left Arm; Cuff Size: Standard BP Diastolic 70 mm[Hg] Comments: Patient Position: Sitting; Cuff Location: Left Arm; Cuff Size: Standard Weight 159 lb Height 62 in Body Mass Index Calculated 29.08 kg/m2 Body Surface Area Calculated 1.73 m2 :25 Temperature 97.6 f Comments: Method: Oral Pulse 52 /min Comments: Pattern: Regular Respiration Rate 18 /min Comments: Pattern: Unlabored BP Systolic 138 mm[Hg] Comments: Patient Position: Sitting; Cuff Location: Left Arm; Cuff Size: Standard BP Diastolic 80 mm[Hg] Comments: Patient Position: Sitting; Cuff Location: Left Arm; Cuff Size: Standard Weight 159 lb Height 62 in Body Mass Index Calculated 29.08 kg/m2 Body Surface Area Calculated 1.73 m2 :15 Temperature 97.6 f Comments: Method: Oral Pulse 60 /min Comments: Pattern: Regular Respiration Rate 16 /min O2 SAT 94 % Comments: Room air BP Systolic 120 mm[Hg] Comments: Patient Position: Sitting; Cuff Location: Left Arm; Cuff Size: Standard BP Diastolic 70 mm[Hg] Comments: Patient Position: Sitting; Cuff Location: Left Arm; Cuff Size: Standard Weight 159 lb Height 62 in Body Mass Index Calculated 29.08 kg/m2 Body Surface Area Calculated 1.73 m2 :36 Pulse 62 /min Comments: Pattern: Regular Respiration Rate 16 /min O2 SAT 98 % Comments: Room air BP Systolic 120 mm[Hg] Comments: Patient Position: Sitting; Cuff Location: Left Arm; Cuff Size: Standard BP Diastolic 72 mm[Hg] Comments: Patient Position: Sitting; Cuff Location: Left Arm; Cuff Size: Standard Weight 159.5 lb Height 62 in Body Mass Index Calculated 29.17 kg/m2 Body Surface Area Calculated 1.74 m2 :24 Temperature 97.2 f Comments: Method: Oral Pulse 52 /min Comments: Pattern: Regular O2 SAT 98 % Comments: Room air BP Systolic 130 mm[Hg] Comments: Patient Position: Sitting; Cuff Location: Left Arm; Cuff Size: Standard BP Diastolic 72 mm[Hg] Comments: Patient Position: Sitting; Cuff Location: Left Arm; Cuff Size: Standard Weight 159.5 lb Height 62 in Body Mass Index Calculated 29.17 kg/m2 Body Surface Area Calculated 1.74 m2 :27 Temperature 98.6 f Comments: Method: Oral Pulse 64 /min Comments: Pattern: Regular Respiration Rate 18 /min Comments: Pattern: Unlabored BP Systolic 138 mm[Hg] Comments: Patient Position: Sitting; Cuff Location: Left Arm; Cuff Size: Large BP Diastolic 78 mm[Hg] Comments: Patient Position: Sitting; Cuff Location: Left Arm; Cuff Size: Large Weight 159.5 lb Height 62 in Body Mass Index Calculated 29.17 kg/m2 Body Surface Area Calculated 1.74 m2 :55 Temperature 98.2 f Comments: Method: Oral Pulse 52 /min Comments: Pattern: Regular Respiration Rate 16 /min BP Systolic 140 mm[Hg] Comments: Patient Position: Sitting; Cuff Location: Left Arm; Cuff Size: Standard BP Diastolic 72 mm[Hg] Comments: Patient Position: Sitting; Cuff Location: Left Arm; Cuff Size: Standard Weight 166.5 lb Height 62 in Body Mass Index Calculated 30.45 kg/m2 Body Surface Area Calculated 1.77 m2 :43 Temperature 97.2 f Comments: Method: Temporal Pulse 73 /min Comments: Pattern: Regular Respiration Rate 16 /min Comments: Pattern: Unlabored O2 SAT 98 % Comments: Room air BP Systolic 150 mm[Hg] Comments: Patient Position: Sitting; Cuff Location: Left Arm; Cuff Size: Standard BP Diastolic 82 mm[Hg] Comments: Patient Position: Sitting; Cuff Location: Left Arm; Cuff Size: Standard Weight 166.5 lb Height 62 in Body Mass Index Calculated 30.45 kg/m2 Body Surface Area Calculated 1.77 m2 :39 Temperature 101.6 f Comments: Method: Oral Pulse 72 /min Comments: Pattern: Regular Respiration Rate 18 /min Comments: Pattern: Unlabored BP Systolic 144 mm[Hg] Comments: Patient Position: Sitting; Cuff Location: Left Arm; Cuff Size: Large BP Diastolic 82 mm[Hg] Comments: Patient Position: Sitting; Cuff Location: Left Arm; Cuff Size: Large Weight 166.5 lb Height 62 in Body Mass Index Calculated 30.45 kg/m2 Body Surface Area Calculated 1.77 m2 :19 Temperature 96 f Comments: Method: Temporal Pulse 72 /min Comments: Pattern: Regular Respiration Rate 16 /min Comments: Pattern: Unlabored BP Systolic 128 mm[Hg] Comments: Patient Position: Sitting; Cuff Location: Left Arm; Cuff Size: Standard BP Diastolic 76 mm[Hg] Comments: Patient Position: Sitting; Cuff Location: Left Arm; Cuff Size: Standard Weight 169 lb Height 62 in Body Mass Index Calculated 30.91 kg/m2 Body Surface Area Calculated 1.78 m2 :19 Temperature 97.8 f Comments: Method: Oral Pulse 72 /min Comments: Pattern: Regular Respiration Rate 16 /min Comments: Pattern: Unlabored BP Systolic 124 mm[Hg] Comments: Patient Position: Sitting; Cuff Location: Left Arm; Cuff Size: Standard BP Diastolic 78 mm[Hg] Comments: Patient Position: Sitting; Cuff Location: Left Arm; Cuff Size: Standard Weight 166 lb Height 62 in Body Mass Index Calculated 30.36 kg/m2 Body Surface Area Calculated 1.77 m2 :12 Temperature 98 f Comments: Method: Oral Pulse 70 /min Comments: Pattern: Regular Respiration Rate 18 /min O2 SAT 93 % Comments: Room air BP Systolic 136 mm[Hg] Comments: Patient Position: Sitting; Cuff Location: Left Arm; Cuff Size: Standard BP Diastolic 80 mm[Hg] Comments: Patient Position: Sitting; Cuff Location: Left Arm; Cuff Size: Standard Weight 166 lb Height 62 in Body Mass Index Calculated 30.36 kg/m2 Body Surface Area Calculated 1.77 m2 :27 Temperature 97.6 f Comments: Method: Oral Pulse 70 /min Comments: Pattern: Regular Respiration Rate 18 /min Comments: Pattern: Unlabored BP Systolic 128 mm[Hg] Comments: Patient Position: Sitting; Cuff Location: Left Arm; Cuff Size: Standard BP Diastolic 76 mm[Hg] Comments: Patient Position: Sitting; Cuff Location: Left Arm; Cuff Size: Standard Weight 166 lb Height 62 in Body Mass Index Calculated 30.36 kg/m2 Body Surface Area Calculated 1.77 m2 :11 Temperature 96.9 f Comments: Method: Oral Pulse 72 /min Comments: Pattern: Regular Respiration Rate 16 /min Comments: Pattern: Unlabored BP Systolic 140 mm[Hg] Comments: Patient Position: Sitting; Cuff Location: Left Arm; Cuff Size: Standard BP Diastolic 82 mm[Hg] Comments: Patient Position: Sitting; Cuff Location: Left Arm; Cuff Size: Standard Weight 163 lb Height 62 in Body Mass Index Calculated 29.81 kg/m2 Body Surface Area Calculated 1.75 m2 :12 Temperature 96.9 f Comments: Method: Oral Pulse 76 /min Comments: Pattern: Regular Respiration Rate 16 /min Comments: Pattern: Unlabored BP Systolic 120 mm[Hg] Comments: Patient Position: Sitting; Cuff Location: Left Arm; Cuff Size: Standard BP Diastolic 72 mm[Hg] Comments: Patient Position: Sitting; Cuff Location: Left Arm; Cuff Size: Standard Weight 163 lb Height 62 in Body Mass Index Calculated 29.81 kg/m2 Body Surface Area Calculated 1.75 m2 :50 Temperature 97.4 f Comments: Method: Oral Pulse 90 /min Comments: Pattern: Regular Respiration Rate 16 /min Comments: Pattern: Unlabored O2 SAT 97 % Comments: Room air BP Systolic 142 mm[Hg] Comments: Patient Position: Sitting; Cuff Location: Left Arm; Cuff Size: Standard BP Diastolic 86 mm[Hg] Comments: Patient Position: Sitting; Cuff Location: Left Arm; Cuff Size: Standard Weight 163 lb Height 62 in Body Mass Index Calculated 29.81 kg/m2 Body Surface Area Calculated 1.75 m2 :39 Temperature 98.2 f Comments: Method: Oral Pulse 72 /min Comments: Pattern: Regular Respiration Rate 18 /min Comments: Pattern: Unlabored BP Systolic 126 mm[Hg] Comments: Patient Position: Sitting; Cuff Location: Left Arm; Cuff Size: Standard BP Diastolic 84 mm[Hg] Comments: Patient Position: Sitting; Cuff Location: Left Arm; Cuff Size: Standard Weight 163 lb Height 62 in Body Mass Index Calculated 29.81 kg/m2 Body Surface Area Calculated 1.75 m2 :22 Temperature 98.4 f Comments: Method: Oral Pulse 70 /min Comments: Pattern: Regular Respiration Rate 18 /min Comments: Pattern: Unlabored BP Systolic 124 mm[Hg] Comments: Patient Position: Sitting; Cuff Location: Left Arm; Cuff Size: Standard BP Diastolic 80 mm[Hg] Comments: Patient Position: Sitting; Cuff Location: Left Arm; Cuff Size: Standard Weight 163 lb :00 Temperature 98.1 f Comments: Method: Oral Pulse 72 /min Comments: Pattern: Regular Respiration Rate 16 /min Comments: Pattern: Unlabored BP Systolic 130 mm[Hg] Comments: Patient Position: Sitting; Cuff Location: Left Arm; Cuff Size: Standard BP Diastolic 82 mm[Hg] Comments: Patient Position: Sitting; Cuff Location: Left Arm; Cuff Size: Standard Weight 163 lb :23 O2 SAT 91 % Comments: Room air :36 Temperature 98.9 f Comments: Method: Oral Pulse 68 /min Comments: Pattern: Regular Respiration Rate 20 /min Comments: Pattern: Unlabored BP Systolic 128 mm[Hg] Comments: Patient Position: Sitting; Cuff Location: Left Arm; Cuff Size: Large BP Diastolic 78 mm[Hg] Comments: Patient Position: Sitting; Cuff Location: Left Arm; Cuff Size: Large Weight 163 lb :16 Pulse 70 /min Comments: Pattern: Regular Respiration Rate 18 /min Comments: Pattern: Unlabored O2 SAT 96 % Comments: Room air BP Systolic 138 mm[Hg] Comments: Patient Position: Sitting; Cuff Location: Left Arm; Cuff Size: Standard BP Diastolic 84 mm[Hg] Comments: Patient Position: Sitting; Cuff Location: Left Arm; Cuff Size: Standard Weight 163 lb :11 Temperature 97.4 f Comments: Method: Oral Pulse 78 /min Comments: Pattern: Regular Respiration Rate 16 /min Comments: Pattern: Unlabored O2 SAT 94 % Comments: Room air BP Systolic 144 mm[Hg] Comments: Patient Position: Sitting; Cuff Location: Left Arm; Cuff Size: Standard BP Diastolic 84 mm[Hg] Comments: Patient Position: Sitting; Cuff Location: Left Arm; Cuff Size: Standard Weight 163 lb :21 Pulse 74 /min Comments: Pattern: Regular Respiration Rate 18 /min Comments: Pattern: Unlabored BP Systolic 140 mm[Hg] Comments: Patient Position: Sitting; Cuff Location: Left Arm; Cuff Size: Standard BP Diastolic 82 mm[Hg] Comments: Patient Position: Sitting; Cuff Location: Left Arm; Cuff Size: Standard Weight 163 lb :47 Temperature 98.4 f Comments: Method: Oral Pulse 76 /min Comments: Pattern: Regular Respiration Rate 18 /min Comments: Pattern: Unlabored O2 SAT 98 % Comments: Room air BP Systolic 126 mm[Hg] Comments: Patient Position: Sitting; Cuff Location: Left Arm; Cuff Size: Standard BP Diastolic 80 mm[Hg] Comments: Patient Position: Sitting; Cuff Location: Left Arm; Cuff Size: Standard Weight 0 lb Height 0 in Head Circumference 0.00 cm :16 Pulse 72 /min Comments: Pattern: Regular Respiration Rate 16 /min Comments: Pattern: Unlabored BP Systolic 122 mm[Hg] Comments: Patient Position: Sitting; Cuff Location: Left Arm; Cuff Size: Standard BP Diastolic 82 mm[Hg] Comments: Patient Position: Sitting; Cuff Location: Left Arm; Cuff Size: Standard Weight 0 lb Height 0 in Head Circumference 0.00 cm :17 Temperature 98.2 f Comments: Method: Oral Pulse 65 /min Comments: Pattern: Regular Respiration Rate 18 /min Comments: Pattern: Unlabored O2 SAT 97 % Comments: Room air BP Systolic 128 mm[Hg] Comments: Patient Position: Sitting; Cuff Location: Left Arm; Cuff Size: Large BP Diastolic 86 mm[Hg] Comments: Patient Position: Sitting; Cuff Location: Left Arm; Cuff Size: Large Weight 159.0625 lb Height 62 in Body Mass Index Calculated 29.09 kg/m2 Body Surface Area Calculated 1.73 m2 Head Circumference 0.00 cm :07 Pulse 74 /min Comments: Pattern: Regular Respiration Rate 16 /min Comments: Pattern: Unlabored BP Systolic 124 mm[Hg] Comments: Patient Position: Sitting; Cuff Location: Left Arm; Cuff Size: Large BP Diastolic 80 mm[Hg] Comments: Patient Position: Sitting; Cuff Location: Left Arm; Cuff Size: Large Weight 157 lb Height 0 in Head Circumference 0.00 cm :30 Pulse 82 /min Comments: Pattern: Regular BP Systolic 160 mm[Hg] Comments: Patient Position: Standing; Cuff Location: Left Arm; Cuff Size: Standard BP Diastolic 96 mm[Hg] Comments: Patient Position: Standing; Cuff Location: Left Arm; Cuff Size: Standard Weight 0 lb Height 0 in Head Circumference 0.00 cm :29 Pulse 80 /min Comments: Pattern: Regular BP Systolic 144 mm[Hg] Comments: Patient Position: Sitting; Cuff Location: Left Arm; Cuff Size: Standard BP Diastolic 94 mm[Hg] Comments: Patient Position: Sitting; Cuff Location: Left Arm; Cuff Size: Standard Weight 0 lb Height 0 in Head Circumference 0.00 cm :27 Pulse 78 /min Comments: Pattern: Regular Respiration Rate 16 /min Comments: Pattern: Unlabored O2 SAT 98 % Comments: Room air BP Systolic 160 mm[Hg] Comments: Patient Position: Supine; Cuff Location: Left Arm; Cuff Size: Standard BP Diastolic 100 mm[Hg] Comments: Patient Position: Supine; Cuff Location: Left Arm; Cuff Size: Standard Weight 0 lb Height 0 in Head Circumference 0.00 cm :10 Temperature 98.2 f Comments: Method: Oral Pulse 76 /min Comments: Pattern: Regular Respiration Rate 16 /min Comments: Pattern: Unlabored BP Systolic 122 mm[Hg] Comments: Patient Position: Sitting; Cuff Location: Left Arm; Cuff Size: Standard BP Diastolic 80 mm[Hg] Comments: Patient Position: Sitting; Cuff Location: Left Arm; Cuff Size: Standard Weight 0 lb Height 0 in Head Circumference 0.00 cm :49 Temperature 98 f Comments: Method: Oral Pulse 84 /min Comments: Pattern: Regular Respiration Rate 18 /min Comments: Pattern: Unlabored BP Systolic 116 mm[Hg] Comments: Patient Position: Sitting; Cuff Location: Right Arm; Cuff Size: Standard BP Diastolic 68 mm[Hg] Comments: Patient Position: Sitting; Cuff Location: Right Arm; Cuff Size: Standard Weight 151 lb Height 0 in Head Circumference 0.00 cm :43 Temperature 97.9 f Comments: Method: Oral Pulse 96 /min Comments: Pattern: Regular Respiration Rate 18 /min Comments: Pattern: Unlabored BP Systolic 108 mm[Hg] Comments: Patient Position: Sitting; Cuff Location: Left Arm; Cuff Size: Standard BP Diastolic 70 mm[Hg] Comments: Patient Position: Sitting; Cuff Location: Left Arm; Cuff Size: Standard Weight 151 lb Height 0 in Head Circumference 0.00 cm :19 Temperature 97.9 f Comments: Method: Oral Pulse 80 /min Comments: Pattern: Regular Respiration Rate 16 /min Comments: Pattern: Unlabored BP Systolic 144 mm[Hg] Comments: Patient Position: Sitting; Cuff Location: Left Arm; Cuff Size: Standard BP Diastolic 88 mm[Hg] Comments: Patient Position: Sitting; Cuff Location: Left Arm; Cuff Size: Standard Weight 0 lb Height 0 in Head Circumference 0.00 cm :36 Temperature 97.6 f Comments: Method: Oral Pulse 76 /min Comments: Pattern: Regular Respiration Rate 16 /min Comments: Pattern: Unlabored BP Systolic 142 mm[Hg] Comments: Patient Position: Sitting; Cuff Location: Right Arm; Cuff Size: Standard BP Diastolic 80 mm[Hg] Comments: Patient Position: Sitting; Cuff Location: Right Arm; Cuff Size: Standard Weight 151 lb Height 0 in Head Circumference 0.00 cm :59 Temperature 98.6 f Comments: Method: Oral Pulse 100 /min Comments: Pattern: Regular Respiration Rate 16 /min Comments: Pattern: Unlabored BP Systolic 134 mm[Hg] Comments: Patient Position: Sitting; Cuff Location: Left Arm; Cuff Size: Large BP Diastolic 80 mm[Hg] Comments: Patient Position: Sitting; Cuff Location: Left Arm; Cuff Size: Large Weight 0 lb Height 0 in Head Circumference 0.00 cm :58 Temperature 97.7 f Comments: Method: Oral Pulse 84 /min Comments: Pattern: Regular Respiration Rate 16 /min Comments: Pattern: Unlabored BP Systolic 122 mm[Hg] Comments: Patient Position: Sitting; Cuff Location: Left Arm; Cuff Size: Standard BP Diastolic 78 mm[Hg] Comments: Patient Position: Sitting; Cuff Location: Left Arm; Cuff Size: Standard Weight 0 lb Height 0 in Head Circumference 0.00 cm :03 Temperature 97.8 f Comments: Method: Oral Pulse 78 /min Comments: Pattern: Regular Respiration Rate 15 /min Comments: Pattern: Unlabored BP Systolic 160 mm[Hg] Comments: Patient Position: Sitting; Cuff Location: Right Arm; Cuff Size: Standard BP Diastolic 88 mm[Hg] Comments: Patient Position: Sitting; Cuff Location: Right Arm; Cuff Size: Standard Weight 161 lb Height 0 in Head Circumference 0.00 cm :17 Temperature 97.6 f Comments: Method: Oral Pulse 70 /min Comments: Pattern: Regular Respiration Rate 20 /min Comments: Pattern: Unlabored BP Systolic 126 mm[Hg] Comments: Patient Position: Sitting; Cuff Location: Left Arm; Cuff Size: Standard BP Diastolic 84 mm[Hg] Comments: Patient Position: Sitting; Cuff Location: Left Arm; Cuff Size: Standard Weight 158 lb Height 62 in Body Mass Index Calculated 28.9 kg/m2 Body Surface Area Calculated 1.73 m2 Head Circumference 0.00 cm Results Date Description Value Details :51 HEPATIC FUNCTION PANEL Comments: recheck in 2-3 weeks; A courtesy copy of this report has been sent [phone].PATIENT NOT FASTINGPERFORMED BY: [facility]CoKessler Institute for RehabilitationLqfuck5951 [facility] [id number] Info rmation: [id number] [phone] (76117) ALT (SGPT) 47 [iU]/L (Abnormal) Range: 0-32 AST (SGOT) 32 [iU]/L (Normal) Range: 0-40 Alkaline Phosphatase 90 [iU]/L (Normal) Range: 39-117 Bilirubin, Direct 0.19 mg/dL (Normal) Range: 0.00-0.40 Bilirubin, Total 0.7 mg/dL (Normal) Range: 0.0-1.2 Albumin 4.5 g/dL (Normal) Range: 3.5-4.8 Protein, Total 6.8 g/dL (Normal) Range: 6.0-8.5 :20 LDL Cholesterol (Direct) Comments: PATIENT WAS FASTINGPERFORMED BY: ElixserveKessler Institute for RehabilitationOcclam1816 [facility] [id number] LDL Chol. (Direct) 83 mg/dL (Normal) Range: 0-99 : Written Authorization WAR (Normal) Comments: PATIENT WAS FASTINGPERFORMED BY: [facility]Ins[facility] Hospital6370 [facility] [id number] Comments: Written Authorization Received.Authorization received from EDUARDO BATEMAN LPN [id number] by Holley Ma :20 Metabolic Panel, Comments: PATIENT WAS FASTINGPERFORMED BY: [facility]1447 [facility] [id number] BY: [facility]HandsInsight Surgical Hospital6370 [facility] [id number] [facility] ([id number]) ALT (SGPT) 38 [iU]/L (Abnormal) Range: 0-32 AST (SGOT) 25 [iU]/L (Normal) Range: 0-40 Alkaline Phosphatase 107 [iU]/L (Normal) Range: 39-117 Bilirubin, Total 0.4 mg/dL (Normal) Range: 0.0-1.2 A/G Ratio 1.7 (Normal) Range: 1.2-2.2 Globulin, Total 2.4 g/dL (Normal) Range: 1.5-4.5 Albumin 4.1 g/dL (Normal) Range: 3.5-4.8 Protein, Total 6.5 g/dL (Normal) Range: 6.0-8.5 Calcium 9.3 mg/dL (Normal) Range: 8.7-10.3 Carbon Dioxide, Total 23 mmol/L (Normal) Range: 20-29 Chloride 103 mmol/L (Normal) Range: 96-106 Potassium 4.2 mmol/L (Normal) Range: 3.5-5.2 Sodium 142 mmol/L (Normal) Range: 134-144 BUN/Creatinine Ratio 24 (Normal) Range: 12-28 eGFR If Africn Am 80 mL/min/1.73 (Normal) eGFR If NonAfricn Am 70 mL/min/1.73 (Normal) Creatinine 0.82 mg/dL (Normal) Range: 0.57-1.00 BUN 20 mg/dL (Normal) Range: 8-27 Glucose 126 mg/dL (Abnormal) Range: 65-99 27-Uuh-02508:20 LIPOPROTEIN, BLD, BY NMR Comments: PATIENT WAS FASTINGPERFORMED BY: BN [facility] [address] [id number] BY: CB [facility] Drzejp1905 [facility] [id number] (29796) LP-IR Score 66 (Abnormal) Comments: INSULIN RESISTANCE MARKER <--Insulin Sensitive Insulin Resistant--> Percentile in Reference PopulationInsulin Resistance ScoreLP-IR Score Low 25th 50th 75th High <27 27 45 63 >63LP-IR Score is inaccurate if patient is non-fasting. .The LP-IR score is a laboratory developed i [facility] that has beenassociated with insulin resistance and diabetes risk and should beused as one component of a physician's clinical assessment. TheLP-IR score listed above has not been cleared by the US Food andDrug Administration. LDL Size 19.5 nm (Normal) Comments: INTERPRETATIVE INFORMATION PARTICLE CONCENTRATION AND SIZE <--Lower CVD Risk Highe r CVD Risk--> LDL AND HDL PARTICLES Percentile in Reference Population HDL-P (total) High 75th 50th 25th Low >34.9 34.9 30.5 26.7 <26.7 . Small LDL-P Low 25th 50th 75th High <117 117 527 839 >839 . LDL Size <-Large (Pattern A)-> <-Small (Pattern B)-> 23.0 20.6 20.5 19.0 Small LDL-P and LDL Size are associated with CVD risk, but not afterLDL-P is taken into account. .These assays were developed and their performance characteristicsdetermined by [employer]. These assays have not been cleared by Madhav Food and Drug Administration. The clinical utility of theselaboratory values have not been fully established. Small LDL-P 713 nmol/L (Abnormal) HDL-P (Total) 37.4 umol/L (Normal) Cholesterol, Total 209 mg/dL (Abnormal) Range: 100-199 Triglycerides 475 mg/dL (Abnormal) Range: 0-149 HDL-C 31 mg/dL (Abnormal) LDL-C TRIGHI mg/dL (Normal) Range: 0-99 Comments: Triglyceride result indicated is too high for an accurate LDLcholesterol estimation. . Optimal < 100 Above optimal 100 - 129 Borderline 130 - 159 High 160 - 189 Very high > 189 .LDL-C is inaccurate if patient is non-fasting. LDL-P 1129 nmol/L (Abnormal) Comments: Low < 1000 Moderate 1000 - 1299 Borderline-High 1300 - 1599 High 1600 - 2000 Very High > 2000 29-Mpj-61265:24 HEPATIC FUNCTION PANEL Comments: PATIENT WAS FASTINGPERFORMED BY: BN [facility] [address] [id number] BY: CB [facility] Irtdax7516 [facility] [id number] ([id number]) ALT (SGPT) 34 [iU]/L (Abnormal) Range: 0-32 AST (SGOT) 30 [iU]/L (Normal) Range: 0-40 Alkaline Phosphatase 102 [iU]/L (Normal) Range: 39-117 Bilirubin, Direct 0.14 mg/dL (Normal) Range: 0.00-0.40 Bilirubin, Total 0.7 mg/dL (Normal) Range: 0.0-1.2 Albumin 4.4 g/dL (Normal) Range: 3.5-4.8 Protein, Total 6.7 g/dL (Normal) Range: 6.0-8.5 97-Siy-46680:24 LIPOPROTEIN, BLD, BY NMR Comments: PATIENT WAS FASTINGPERFORMED BY: BN [facility] Mlullykprf9441 [facility] [id number] BY: CB [facility] Cbzkdz9377 [facility] [id number]; fu 8-20 DB (69392) LP-IR Score 64 (Abnormal) Comments: INSULIN RESISTANCE MARKER <--Insulin Sensitive Insulin Resistant--> Percentile in Reference PopulationInsulin Resistance ScoreLP-IR Score Low 25th 50th 75th High <27 27 45 63 >63LP-IR Score is inaccurate if patient is non-fasting. .The LP-IR score is a laboratory developed i [facility] that has beenassociated with insulin resistance and diabetes risk and should beused as one component of a physician's clinical assessment. TheLP-IR score listed above has not been cleared by the US Food andDrug Administration. LDL Size 19.6 nm (Normal) Comments: INTERPRETATIVE INFORMATION PARTICLE CONCENTRATION AND SIZE <--Lower CVD Risk Highe r CVD Risk--> LDL AND HDL PARTICLES Percentile in Reference Population HDL-P (total) High 75th 50th 25th Low >34.9 34.9 30.5 26.7 <26.7 . Small LDL-P Low 25th 50th 75th High <117 117 527 839 >839 . LDL Size <-Large (Pattern A)-> <-Small (Pattern B)-> 23.0 20.6 20.5 19.0 Small LDL-P and LDL Size are associated with CVD risk, but not afterLDL-P is taken into account. .These assays were developed and their performance characteristicsdetermined by [employer]. These assays have not been cleared by Madhav Food and Drug Administration. The clinical utility of theselaboratory values have not been fully established. Small LDL-P 677 nmol/L (Abnormal) HDL-P (Total) 32.5 umol/L (Normal) Cholesterol, Total 209 mg/dL (Abnormal) Range: 100-199 Triglycerides 443 mg/dL (Abnormal) Range: 0-149 HDL-C 33 mg/dL (Abnormal) LDL-C TRIGHI mg/dL (Normal) Range: 0-99 Comments: Triglyceride result indicated is too high for an accurate LDLcholesterol estimation. . Optimal < 100 Above optimal 100 - 129 Borderline 130 - 159 High 160 - 189 Very high > 189 .LDL-C is inaccurate if patient is non-fasting. LDL-P 1204 nmol/L (Abnormal) Comments: Low < 1000 Moderate 1000 - 1299 Borderline-High 1300 - 1599 High 1600 - 2000 Very High > 2000 93-Yud-851428:19 Basic Metabolic Profile (BMP) Comments: Order Date: 07/30/17Order Info: [id number] - [facility] [address] [place], [address] GAP 10 (Normal) Range: 5-15 CO2 27.0 mmol/L (Normal) Range: 21.0-32.0 CL 101 mmol/L (Normal) Range: 98-107 K 3.8 mmol/L (Normal) Range: 3.5-5.1 NA 138 mmol/L (Normal) Range: 136-145 CA 8.9 mg/dL (Normal) Range: 8.5-10.1 BUN/CRE 10.6 {RATIO} (Normal) Range: 10-20 EST GFR - AA 74 mL/min (Normal) Comments: GFR Calc EST GFR 61 mL/min (Normal) Comments: Non- GFR Calc CREAT,SERUM 0.94 mg/dL (Normal) Range: 0.55-1.02 Comments: The validity of the calculated GFR AND GFRAA in patients over70 years has not been determined. Clinical correlation isessential. BUN 10 mg/dL (Normal) Range: 7-18 GLU 106 mg/dL (Normal) Range: 74-106 Comments: Fasting Glucose result from 100 to 125 mg/dLsuggests IMPAIRED HOMEOSTASIS per A.D.A. criteria.Please note revised GLUCOSE reference range grqueccwr18/02/2018. 04-Njy-096138:19 CBC W/Diff, Automated Comments: Order Date: 07/30/17Order Info: [id number] - CBCDOrder Info: [id number] [facility] [address] [place], [place], [id number] Absolute Lymph 2.02 {X10_3/ul} (Normal) Range: 0.83-4.51 Absolute Neut 6.6 {X10_3/uL} (Normal) Range: 2.0-7.7 IM GRAN % 0.200 % (Normal) Range: 0.0-0.9 Comments: IG% - Immature Granulocytes (promyelocytes, myelocytes andmetamyelocytes) > 1% indicates that a LEFT SHIFT is Present. BASO% 0.4 % (Normal) Range: 0-1 EO% 3.5 % (Normal) Range: 0-5 MONO% 9.3 % (Normal) Range: 0-10 LY% 20.3 % (Normal) Range: 19-41 NEUT% 66.3 % (Normal) Range: 47-70 MPV 10.4 fL (Normal) Range: 6.2-12.0 PLT 225 K/mm3 (Normal) Range: 150-450 RDW SD 42.3 fL (Normal) Range: 35.1-43.9 RDW CV 13.6 % (Normal) Range: 11.6-14.6 MCHC 34.6 {g/gl} (Normal) Range: 32-36 MCH 29.8 pg (Normal) Range: 27.0-32.0 MCV 86.3 fL (Normal) Range: 81-99 HCT 40.8 % (Normal) Range: 37-47 HGB 14.1 g/dL (Normal) Range: 12.0-15.0 RBC 4.73 {M/mm3} (Normal) Range: 4.2-5.4 WBC 10.0 K/mm3 (Normal) Range: 4.4-11.0 45-Iol-996677:19 Erythrocyte Sed Rate Comments: Order Date: 07/30/17Order Info: [id number] - CBCDOrder Info: [id number] - [facility] [address]vqfrnmw[address] [place], [place], [id number] SED RATE 26 mm/h (Normal) Range: 0-30 19-Qow-694239:59 Urinalysis, Office (96162) UA - LEUKOCYTE ESTERASE Negative (Normal) UA - NITRITE Negative (Normal) URINE UROBILINGN SILVESTRE TIMED Normal mg/dL (Normal) UA - PROTEIN Negative mg/dL (Normal) UA - PH 7 (Normal) UA - BLOOD Negative (Normal) UA - SPECIFIC GRAVITY 1.015 (Normal) UA - KETONES Negative mg/dL (Normal) UA - BILIRUBIN Negative (Normal) UA - GLUCOSE Negative (Normal) 3-Ile-926862:01 Basic Metabolic Profile (BMP) Comments: [facility] [address] [place], [place], [address] GAP 7 (Normal) Range: 5-15 CO2 26.0 mmol/L (Normal) Range: 21.0-32.0 CL 104 mmol/L (Normal) Range: 98-107 K 3.9 mmol/L (Normal) Range: 3.5-5.1 Comments: Slight Hemolysis, Result may be falsely increased. NA 137 mmol/L (Normal) Range: 136-145 CA 9.0 mg/dL (Normal) Range: 8.5-10.1 BUN/CRE 22.9 {RATIO} (Abnormal) Range: 10-20 EST GFR - AA 81 mL/min (Normal) Comments: GFR Calc EST GFR 67 mL/min (Normal) Comments: Non- GFR Calc CREAT,SERUM 0.87 mg/dL (Normal) Range: 0.55-1.02 Comments: The validity of the calculated GFR AND GFRAA in patients over70 years has not been determined. Clinical correlation isessential. BUN 20 mg/dL (Abnormal) Range: 7-18 GLU 88 mg/dL (Normal) Range: 74-106 Comments: Please note revised GLUCOSE reference range pvechtuie52/02/2018. 4-Kjs-575462:01 CBC-Complete Blood Cnt No Diff Comments: [facility] [address] [place], [place], [id number] MPV 10.5 fL (Normal) Range: 6.2-12.0 PLT 171 K/mm3 (Normal) Range: 150-450 RDW SD 46.1 fL (Abnormal) Range: 35.1-43.9 RDW CV 14.4 % (Normal) Range: 11.6-14.6 MCHC 33.6 {g/gl} (Normal) Range: 32-36 MCH 29.9 pg (Normal) Range: 27.0-32.0 MCV 88.9 fL (Normal) Range: 81-99 HCT 44.0 % (Normal) Range: 37-47 HGB 14.8 g/dL (Normal) Range: 12.0-15.0 RBC 4.95 {M/mm3} (Normal) Range: 4.2-5.4 WBC 7.2 K/mm3 (Normal) Range: 4.4-11.0 :01 Prothrombin Time w/INR Comments: [facility] [address] [place], [place], [address] INR 1.0 (Normal) PROTIME 12.7 s (Normal) Range: 11.7-14.9 2-Owj-332277:01 Urinalysis, Complete Comments: How was Urine Obtained? [address] TO [facility] [address] [place], [place], [id number] MUCUS, URINE 0 SEEN {/hpf} (Normal) BACTERIA 0 SEEN {/hpf} (Normal) SQUAM EPI 0-5 SEEN {/hpf} (Normal) Range: 5-10 RBC-UA 0 SEEN {/hpf} (Normal) Range: 0-5 WBC 0-5 SEEN {/hpf} (Normal) Range: 0-5 LEUK ESTERASE 25 /ul (Abnormal) OCCULT BLOOD-UR Negative /ul (Normal) NITRITE UR Negative (Normal) UROBILI Normal mg/dL (Normal) PROT DIPSTX Negative mg/dL (Normal) pH UR 6.0 (Normal) Range: 5.0 - 8.0 SP.GR. DIPSTX 1.015 (Normal) Range: 1.002-1.030 KETONE UR Negative mg/dL (Normal) BILIRUBIN URINE Negative mg/dL (Normal) GLUCOSE, UR Normal mg/dL (Normal) CLARITY Clear (Normal) COLOR Yellow (Normal) 3-Yrn-909870:37 Urinalysis, Office (36995) UA - LEUKOCYTE ESTERASE Negative (Normal) UA - NITRITE Negative (Normal) URINE UROBILINGN SILVESTRE TIMED 2 mg/dL (Normal) UA - PROTEIN Negative mg/dL (Normal) UA - PH 7.0 (Normal) UA - BLOOD Negative (Normal) UA - SPECIFIC GRAVITY 1.010 (Normal) UA - KETONES Negative mg/dL (Normal) UA - BILIRUBIN Negative (Normal) UA - GLUCOSE Negative (Normal) 06-Oxl-293100:00 URINE RASHAD CULTURE-SILVESTRE COL Comments: PATIENT NOT FASTINGPERFORMED BY: [employer] Uopzon3603 [facility] [id number] Information: SRC:UC COUNT (99423) Antimicrobial MIHEAD (Normal) Comments: S = Susceptible; I = Intermediate; R = Resistant P = Positive; N = Negative MICS are expressed in micrograms per mL Antibiotic RSLT#1 RSLT#2 RS Susceptibility LT#3 RSLT#4Amoxicillin/Clavulanic Acid SAmpicillin RCefepime SCeftriaxone SCefuroxime SCephalothin SCiprofloxacin SErtapenem SGentamicin RImipenem SLevofloxacin SNitrofurantoin SPipera cillin RTetracycline RTobramycin STrimethoprim/Sulfa R Result 1 Escherichia coli Comments: Greater than 100,000 colony forming units per mL (Abnormal) Urine Final report Culture,Comprehensive (Abnormal) 81-Wbu-98647:06 Urinalysis, Office (18895) UA - LEUKOCYTE ESTERASE Large (Normal) UA - NITRITE Positive (Normal) URINE UROBILINGN SILVESTRE TIMED 2 mg/dL (Normal) UA - PROTEIN 100 mg/dL (Normal) UA - PH 5 (Abnormal) UA - BLOOD Non Hemolyzed Moderate (Normal) UA - SPECIFIC GRAVITY 1.015 (Normal) UA - KETONES Small mg/dL (Normal) UA - BILIRUBIN Small (Normal) UA - GLUCOSE 100 (Abnormal) 23-Aug-20179:42 METABOLIC PANEL, Comments: PATIENT WAS FASTINGPERFORMED BY: El[facility] [id number] BY: ElixserveJamie [place] 4165370 [facility] [id number] COMPREHENSIVE (85068) ALT (SGPT) 45 [iU]/L (Abnormal) Range: 0-32 AST (SGOT) 32 [iU]/L (Normal) Range: 0-40 Alkaline Phosphatase 100 [iU]/L (Normal) Range: 39-117 Bilirubin, Total 0.6 mg/dL (Normal) Range: 0.0-1.2 A/G Ratio 2.0 (Normal) Range: 1.2-2.2 Globulin, Total 2.3 g/dL (Normal) Range: 1.5-4.5 Albumin 4.5 g/dL (Normal) Range: 3.5-4.8 Protein, Total 6.8 g/dL (Normal) Range: 6.0-8.5 Calcium 9.7 mg/dL (Normal) Range: 8.7-10.3 Carbon Dioxide, Total 24 mmol/L (Normal) Range: 18-29 Chloride 101 mmol/L (Normal) Range: 96-106 Potassium 4.2 mmol/L (Normal) Range: 3.5-5.2 Sodium 141 mmol/L (Normal) Range: 134-144 BUN/Creatinine Ratio 17 (Normal) Range: 12-28 eGFR If Africn Am 76 mL/min/1.73 (Normal) eGFR If NonAfricn Am 66 mL/min/1.73 (Normal) Creatinine 0.86 mg/dL (Normal) Range: 0.57-1.00 BUN 15 mg/dL (Normal) Range: 8-27 Glucose 117 mg/dL (Abnormal) Range: 65-99 23-Aug-20179:42 LIPOPROTEIN, BLD, BY NMR Comments: PATIENT WAS FASTINGPERFORMED BY: BN [facility] [address] [id number] BY: CB [facility] Nompso0293 [facility] [id number] (91775) LP-IR Score 52 (Abnormal) Comments: INSULIN RESISTANCE MARKER <--Insulin Sensitive Insulin Resistant--> Percentile in Reference PopulationInsulin Resistance ScoreLP-IR Score Low 25th 50th 75th High <27 27 45 63 >63LP-IR Score is inaccurate if patient is non-fasting. .The LP-IR score is a laboratory developed i [facility] that has beenassociated with insulin resistance and diabetes risk and should beused as one component of a physician's clinical assessment. TheLP-IR score listed above has not been cleared by the US Food andDrug Administration. LDL Size 20.0 nm (Normal) Comments: INTERPRETATIVE INFORMATION PARTICLE CONCENTRATION AND SIZE <--Lower CVD Risk Highe r CVD Risk--> LDL AND HDL PARTICLES Percentile in Reference Population HDL-P (total) High 75th 50th 25th Low >34.9 34.9 30.5 26.7 <26.7 . Small LDL-P Low 25th 50th 75th High <117 117 527 839 >839 . LDL Size <-Large (Pattern A)-> <-Small (Pattern B)-> 23.0 20.6 20.5 19.0 Small LDL-P and LDL Size are associated with CVD risk, but not afterLDL-P is taken into account. .These assays were developed and their performance characteristicsdetermined by [employer]. These assays have not been cleared by Madhav Food and Drug Administration. The clinical utility of theselaboratory values have not been fully established. Small LDL-P 864 nmol/L (Abnormal) HDL-P (Total) 34.2 umol/L (Normal) Cholesterol, Total 247 mg/dL (Abnormal) Range: 100-199 Triglycerides 346 mg/dL (Abnormal) Range: 0-149 HDL-C 36 mg/dL (Abnormal) LDL-C 142 mg/dL (Abnormal) Range: 0-99 Comments: . Optimal < 100 Above optimal 100 - 129 Borderline 1 30 - 159 High 160 - 189 Very high > 189 .LDL-C is inaccurate if patient is non-fasting. LDL-P 1320 nmol/L (Abnormal) Comments: Low < 1000 Moderate 1000 - 1299 Borderline-High 1300 - 1599 High 1600 - 2000 Very High > 2000 23-Aug-20179:42 TSH (73628) Comments: PATIENT WAS FASTINGPERFORMED BY: [employer] [id number] BY: [facility] Geuvet2012 [address] RoadDublin [place] [id number] TSH 2.070 {uIU/mL} (Normal) Range: 0.450-4.500 9-Cpy-238290:34 Vitamin B-12 (cyanocobalamin) Comments: these ones today; PATIENT NOT FASTINGPERFORMED BY: Lab[address] [id number] BY: [facility] Fgbhpu3424 [address] RoadDublin [place] [id number] (47338) Vitamin B12 677 pg/mL (Normal) Range: 211-946 2-Jvh-365869:34 RPR (RAPID PLASMA Comments: PATIENT NOT FASTINGPERFORMED BY: Elixserve[address] [id number] BY: [facility] Xpboub9688 Xavier RoadDublin [place] [id number] REAGIN) (70432) RPR Non Reactive (Normal) 7-Zir-885433:34 Methymalonic Acid, Serum Comments: PATIENT NOT FASTINGPERFORMED BY: Rough[employer]ands[address] [id number] BY: [facility] Kfsnip6111 [address] RoadDublin [place] [id number] Information: [id number], [id number] (19529) Methylmalonic Acid, Serum 176 nmol/L (Normal) Range: 0-378 0-Mee-203550:18 HEPATIC FUNCTION PANEL Comments: PATIENT WAS FASTINGPERFORMED BY: [address] [id number] BY: [facility] Mcterf5[address] RoadDublin [place] [id number] (94483) ALT (SGPT) 36 [iU]/L (Abnormal) Range: 0-32 AST (SGOT) 32 [iU]/L (Normal) Range: 0-40 Alkaline Phosphatase, S 104 [iU]/L (Normal) Range: 39-117 Bilirubin, Direct 0.13 mg/dL (Normal) Range: 0.00-0.40 Bilirubin, Total 0.5 mg/dL (Normal) Range: 0.0-1.2 Albumin, Serum 4.6 g/dL (Normal) Range: 3.5-4.8 Protein, Total, Serum 6.7 g/dL (Normal) Range: 6.0-8.5 9-Jwc-521535:18 LIPOPROTEIN, BLD, BY NMR Comments: PATIENT WAS FASTINGPERFORMED BY: BN [facility] Ldyiybjojs9554 [facility] [id number] BY: CB [facility] Cbfrse4378 [facility] [id number] (66719) LP-IR Score 66 (Abnormal) Comments: INSULIN RESISTANCE MARKER <--Insulin Sensitive Insulin Resistant--> Percentile in Reference PopulationInsulin Resistance ScoreLP-IR Score Low 25th 50th 75th High <27 27 45 63 >63LP-IR Score is inaccurate if patient is non-fasting. .The LP-IR score is a laboratory developed i [facility] that has beenassociated with insulin resistance and diabetes risk and should beused as one component of a physician's clinical assessment. TheLP-IR score listed above has not been cleared by the US Food andDrug Administration. LDL Size 19.3 nm (Normal) Comments: INTERPRETATIVE INFORMATION PARTICLE CONCENTRATION AND SIZE <--Lower CVD Risk Highe r CVD Risk--> LDL AND HDL PARTICLES Percentile in Reference Population HDL-P (total) High 75th 50th 25th Low >34.9 34.9 30.5 26.7 <26.7 . Small LDL-P Low 25th 50th 75th High <117 117 527 839 >839 . LDL Size <-Large (Pattern A)-> <-Small (Pattern B)-> 23.0 20.6 20.5 19.0 Small LDL-P and LDL Size are associated with CVD risk, but not afterLDL-P is taken into account. .These assays were developed and their performance characteristicsdetermined by [employer]. These assays have not been cleared by Madhav Food and Drug Administration. The clinical utility of theselaboratory values have not been fully established. Small LDL-P 845 nmol/L (Abnormal) HDL-P (Total) 35.9 umol/L (Normal) Cholesterol, Total 231 mg/dL (Abnormal) Range: 100-199 Triglycerides 463 mg/dL (Abnormal) Range: 0-149 HDL-C 34 mg/dL (Abnormal) LDL-C TRIGHI mg/dL (Normal) Range: 0-99 Comments: Triglyceride result indicated is too high for an accurate LDLcholesterol estimation. . Optimal < 100 Above optimal 100 - 129 Borderline 130 - 159 High 160 - 189 Very high > 189 .LDL-C is inaccurate if patient is non-fasting. LDL-P 1617 nmol/L (Abnormal) Comments: Low < 1000 Moderate 1000 - 1299 Borderline-High 1300 - 1599 High 1600 - 2000 Very High > 2000 64-Ble-534970:25 CBC With Differential/Platelet Comments: PATIENT NOT FASTINGPERFORMED BY: [facility] Uobwvk9762 [facility] [id number] Information: collect by nurse SRC: Immature Grans (Abs) 0.0 {x10E3/uL} (Normal) Range: 0.0-0.1 Immature Granulocytes 0 % (Normal) Baso (Absolute) 0.0 {x10E3/uL} (Normal) Range: 0.0-0.2 Eos (Absolute) 0.5 {x10E3/uL} (Abnormal) Range: 0.0-0.4 Monocytes(Absolute) 0.4 {x10E3/uL} (Normal) Range: 0.1-0.9 Lymphs (Absolute) 2.0 {x10E3/uL} (Normal) Range: 0.7-3.1 Neutrophils (Absolute) 3.9 {x10E3/uL} (Normal) Range: 1.4-7.0 Basos 0 % (Normal) Eos 7 % (Normal) Monocytes 6 % (Normal) Lymphs 29 % (Normal) Neutrophils 58 % (Normal) Platelets 178 {x10E3/uL} (Normal) Range: 150-379 RDW 14.1 % (Normal) Range: 12.3-15.4 MCHC 33.9 g/dL (Normal) Range: 31.5-35.7 MCH 29.4 pg (Normal) Range: 26.6-33.0 MCV 87 fL (Normal) Range: 79-97 Hematocrit 41.9 % (Normal) Range: 34.0-46.6 Hemoglobin 14.2 g/dL (Normal) Range: 11.1-15.9 RBC 4.83 {x10E6/uL} (Normal) Range: 3.77-5.28 WBC 6.9 {x10E3/uL} (Normal) Range: 3.4-10.8 12-Qco-032711:25 Comp. Metabolic Panel (14) Comments: PATIENT NOT FASTINGPERFORMED BY: LabCoKessler Institute for RehabilitationJsuiqy3350 [facility] [id number] ALT (SGPT) 37 [iU]/L (Abnormal) Range: 0-32 AST (SGOT) 25 [iU]/L (Normal) Range: 0-40 Alkaline Phosphatase, 83 [iU]/L (Normal) Range: 39-117 S Bilirubin, Total 0.3 mg/dL (Normal) Range: 0.0-1.2 A/G Ratio 1.7 (Normal) Range: 1.2-2.2 Globulin, Total 2.3 g/dL (Normal) Range: 1.5-4.5 Albumin, Serum 3.9 g/dL (Normal) Range: 3.5-4.8 Protein, Total, Serum 6.2 g/dL (Normal) Range: 6.0-8.5 Calcium, Serum 9.4 mg/dL (Normal) Range: 8.7-10.3 Carbon Dioxide, Total 24 mmol/L (Normal) Range: 18-29 Chloride, Serum 102 mmol/L (Normal) Range: 96-106 Potassium, Serum 4.1 mmol/L (Normal) Range: 3.5-5.2 Sodium, Serum 141 mmol/L (Normal) Range: 134-144 BUN/Creatinine Ratio 27 (Normal) Range: 12-28 eGFR If Africn Am 82 mL/min/1.73 (Normal) eGFR If NonAfricn Am 71 mL/min/1.73 (Normal) Creatinine, Serum 0.81 mg/dL (Normal) Range: 0.57-1.00 BUN 22 mg/dL (Normal) Range: 8-27 Glucose, Serum 114 mg/dL (Abnormal) Range: 65-99 Homocyst(e)ine, 12.0 umol/L (Normal) Comments: PATIENT NOT FASTINGPERFORMED BY: Jianshu Horswv0218 the grafterAtrium Health [facility] [id number] 0:25 Plasma Range: 0.0-15.0 Microalb/Creat Ratio, Randm Ur Comments: PATIENT NOT FASTINGPERFORMED BY: Jianshu Wimpxb2717ApoforeAtrium Health [facility] [id number] Microalb/Creat Ratio <5.6 {mg/g_creat} (Normal) Range: 0.0-30.0 Microalbumin, Urine <3.0 ug/mL (Normal) Creatinine, Urine 53.7 mg/dL (Normal) : Urinalysis, Routine Comments: PATIENT NOT FASTINGPERFORMED BY: ZapyaSaint John's Regional Health Center [id number] Microscopic Examination MICNIP (Normal) Comments: Microscopic not indicated and not performed. Nitrite, Urine Negative (Normal) Urobilinogen,Semi-Qn 0.2 mg/dL (Normal) Range: 0.2-1.0 Bilirubin Negative (Normal) Occult Blood Negative (Normal) Ketones Negative (Normal) Glucose Negative (Normal) Protein Negative (Normal) WBC Esterase Negative (Normal) Appearance Clear (Normal) Urine-Color Yellow (Normal) pH 7.0 (Normal) Range: 5.0-7.5 Specific [place] 1.014 (Normal) Range: 1.005-1.030 : Urine Culture, Routine Comments: PATIENT NOT FASTINGPERFORMED BY: Jianshu Nadpac6747 XavierSaint [facility] [id number] Result 1 LESS (Normal) Comments: Culture shows less than 10,000 colony forming units of bacteria permilliliter of urine. This colony count is not generally consideredto be clinically significant. Urine Culture, Routine Final report (Normal) 09-Kdr-101200:59 URINE RASHAD CULTURE-IDENTIFICATN Comments: PATIENT NOT FASTINGPERFORMED BY: [facility]6370 [facility] [id number] Information: SRC: ([id number]) Antimicrobial MIHEAD (Normal) Comments: S = Susceptible; I = Intermediate; R = Resistant P = Positive; N = Negative MICS are expressed in micrograms per mL Antibiotic RSLT#1 RSLT#2 RS Susceptibility LT#3 RSLT#4Amoxicillin/Clavulanic Acid SAmpicillin RCefepime SCeftriaxone SCefuroxime SCephalothin ICiprofloxacin SErtapenem SGentamicin RImipenem SLevofloxacin SNitrofurantoin SPipera cillin RTetracycline RTobramycin STrimethoprim/Sulfa R Result 1 Escherichia coli Comments: 10,000-25,000 colony forming units per mL (Abnormal) Urine Final report Culture,Comprehensive (Abnormal) 3-Ozk-649186:01 URINE RASHAD CULTURE-IDENTIFICATN Comments: PATIENT NOT FASTINGPERFORMED BY: [place] [id number] [facility] [id number] Information: SRC: ([id number]) Result 1 NG36 (Normal) Comments: No growth in 36 - 48 hours. Urine Culture,Comprehensive Final report (Normal) 19-Nov-20169:11 Urinalysis, Office (65590) UA - LEUKOCYTE ESTERASE Large (Normal) UA - NITRITE Positive (Normal) URINE UROBILINGN SILVESTRE TIMED 2 mg/dL (Normal) UA - PROTEIN 30 mg/dL (Normal) UA - PH 6 (Abnormal) UA - BLOOD Negative (Normal) UA - SPECIFIC GRAVITY 1.005 (Normal) UA - KETONES 15 mg/dL (Abnormal) UA - BILIRUBIN Large (Normal) UA - GLUCOSE 100 (Abnormal) 01-Cjk-37576:16 CBC W/Diff, Automated Comments: [facility] [address] [place], [address] Absolute Lymph 1.78 {X10_3/ul} (Normal) Range: 0.83-4.51 Absolute Neut 3.3 {X10_3/uL} (Normal) Range: 2.0-7.7 IM GRAN % 0.200 % (Normal) Range: 0.0-0.9 Comments: IG% - Immature Granulocytes (promyelocytes, myelocytes andmetamyelocytes) > 1% indicates that a LEFT SHIFT is Present. BASO% 0.4 % (Normal) Range: 0-1 EO% 3.3 % (Normal) Range: 0-5 MONO% 7.4 % (Normal) Range: 0-10 LY% 31.3 % (Normal) Range: 19-41 NEUT% 57.4 % (Normal) Range: 47-70 MPV 10.6 fL (Normal) Range: 6.2-12.0 PLT 190 K/mm3 (Normal) Range: 150-450 RDW SD 45.0 fL (Abnormal) Range: 35.1-43.9 RDW CV 13.9 % (Normal) Range: 11.6-14.6 MCHC 32.9 {g/gl} (Normal) Range: 32-36 MCH 29.4 pg (Normal) Range: 27.0-32.0 MCV 89.2 fL (Normal) Range: 81-99 HCT 39.8 % (Normal) Range: 37-47 HGB 13.1 g/dL (Normal) Range: 12.0-15.0 RBC 4.46 {M/mm3} (Normal) Range: 4.2-5.4 WBC 5.7 K/mm3 (Normal) Range: 4.4-11.0 5-Aiv-120428:00 HSV CULTURE SCREEN [id number] Comments: PERFORMED BY: CuPcAkE & other things you bake [facility] [id number] Information: SRC:OFE (47721) HSV Culture Without Typing Negative (Normal) 57-Gjx-695812:58 URINE RASHAD CULTURE-IDENTIFICATN Comments: PATIENT NOT FASTINGPERFORMED BY: [employer]serve Jack Erwin [facility] [id number] Information: SRC:ADWOA (92297) Antimicrobial MIHEAD (Normal) Comments: S = Susceptible; I = Intermediate; R = Resistant P = Positive; N = Negative MICS are expressed in micrograms per mL Antibiotic RSLT#1 RSLT#2 RS Susceptibility LT#3 RSLT#4Amoxicillin/Clavulanic Acid SAmpicillin RCefepime SCeftriaxone SCefuroxime SCephalothin ICiprofloxacin SErtapenem SGentamicin RImipenem SLevofloxacin SNitrofurantoin SPipera cillin RTetracycline RTobramycin ITrimethoprim/Sulfa R Result 1 Escherichia coli Comments: Greater than 100,000 colony forming units per mL (Abnormal) Urine Final report Culture,Comprehensive (Abnormal) 26-Tnn-29828:21 Urinalysis, Office (20402) UA - LEUKOCYTE ESTERASE Moderate (Normal) UA - NITRITE Negative (Normal) URINE UROBILINGN SILVESTRE TIMED 2 mg/dL (Normal) UA - PROTEIN 30 mg/dL (Normal) UA - PH 6.0 (Normal) UA - BLOOD Hemolyzed Large (Normal) UA - SPECIFIC GRAVITY 1.020 (Normal) UA - KETONES Negative mg/dL (Normal) UA - BILIRUBIN Negative (Normal) UA - GLUCOSE Negative (Normal) :32 HgA1C , Office (94012) HgA1C , Office 5.4 % (Normal) Range: 4.6 - 7.1 :36 T4, FREE (THYROXINE) (64219) Comments: PATIENT NOT FASTINGPERFORMED BY: ElixserveAlta Vista Regional HospitalIhdbuy2811 [facility] [id number] T4,Free(Direct) 1.34 ng/dL (Normal) Range: 0.82-1.77 27-Sko-304787:36 TSH (01015) Comments: PATIENT NOT FASTINGPERFORMED BY: Jianshu Jack Erwin [facility] [id number] TSH 2.400 {uIU/mL} (Normal) Range: 0.450-4.500 78-Hqs-934598:36 HEPATIC FUNCTION PANEL Comments: PATIENT NOT FASTINGPERFORMED BY: Jianshu Jack Erwin [facility] [id number] (40968) ALT (SGPT) 59 [iU]/L (Abnormal) Range: 0-32 AST (SGOT) 35 [iU]/L (Normal) Range: 0-40 Alkaline Phosphatase, S 96 [iU]/L (Normal) Range: 39-117 Bilirubin, Direct 0.15 mg/dL (Normal) Range: 0.00-0.40 Comments: Please note reference interval change Bilirubin, Total 0.6 mg/dL (Normal) Range: 0.0-1.2 Albumin, Serum 4.4 g/dL (Normal) Range: 3.5-4.8 Protein, Total, Serum 6.5 g/dL (Normal) Range: 6.0-8.5 :36 Magnesium (64232) Comments: PATIENT NOT FASTINGPERFORMED BY: ElixserveKessler Institute for RehabilitationHdugcf7[address] [place] [address] [id number] Magnesium, Serum 2.0 mg/dL (Normal) Range: 1.6-2.3 :36 Metabolic Panel, Basic Comments: PATIENT NOT FASTINGPERFORMED BY: ElixserveKessler Institute for RehabilitationSiimrf[address] [place] [address] [id number] (32537) Calcium, Serum 9.9 mg/dL (Normal) Range: 8.7-10.3 Carbon Dioxide, Total 24 mmol/L (Normal) Range: 18-29 Chloride, Serum 100 mmol/L (Normal) Range: 96-106 Potassium, Serum 4.3 mmol/L (Normal) Range: 3.5-5.2 Sodium, Serum 142 mmol/L (Normal) Range: 134-144 BUN/Creatinine Ratio 25 (Normal) Range: 11-26 eGFR If Africn Am 97 mL/min/1.73 (Normal) eGFR If NonAfricn Am 84 mL/min/1.73 (Normal) Creatinine, Serum 0.71 mg/dL (Normal) Range: 0.57-1.00 BUN 18 mg/dL (Normal) Range: 8-27 Glucose, Serum 111 mg/dL (Abnormal) Range: 65-99 :32 T4, FREE (THYROXINE) Comments: in three months (approximately); PATIENT WAS FASTINGPERFORMED BY: RoughHandsZach[place] [address] [facility] [id number] BY: RoughHandsBruce [place] 7073570 [facility] [id number] (87184) T4,Free(Direct) 1.23 ng/dL (Normal) Range: 0.82-1.77 :32 TSH (87188) Comments: in three months (approximately); PATIENT WAS FASTINGPERFORMED BY: [employer] LabCoServiceNow [address] [id number] BY: LabCoKessler Institute for RehabilitationZezdgi2134 [facility] [id number] TSH 3.620 {uIU/mL} (Normal) Range: 0.450-4.500 :32 LIPOPROTEIN, BLD, BY NMR Comments: in three months (approximately); PATIENT WAS FASTINGPERFORMED BY: [employer] [facility] Ibbxbelila[address] [id number] BY: LabAccelOneAysbth4590 [facility] [id number] (52060) LP-IR Score 77 (Abnormal) Comments: INSULIN RESISTANCE MARKER <--Insulin Sensitive Insulin Resistant--> Percentile in Reference PopulationInsulin Resistance ScoreLP-IR Score Low 25th 50th 75th High <27 27 45 63 >63LP-IR Score is inaccurate if patient is non-fasting. .The LP-IR score is a laboratory developed i [facility] that has beenassociated with insulin resistance and diabetes risk and should beused as one component of a physician's clinical assessment. TheLP-IR score listed above has not been cleared by the [place] Food andDrug Administration. LDL Size 19.4 nm (Normal) Comments: INTERPRETATIVE INFORMATION PARTICLE CONCENTRATION AND SIZE <--Lower CVD Risk Highe r CVD Risk--> LDL AND HDL PARTICLES Percentile in Reference Population HDL-P (total) High 75th 50th 25th Low >34.9 34.9 30.5 26.7 <26.7 . Small LDL-P Low 25th 50th 75th High <117 117 527 839 >839 . LDL Size <-Large (Pattern A)-> <-Small (Pattern B)-> 23.0 20.6 20.5 19.0 Small LDL-P and LDL Size are associated with CVD risk, but not afterLDL-P is taken into account. .These assays were developed and their performance characteristicsdetermined by [employer]. These assays have not been cleared by [place] Food and Drug Administration. The clinical utility of theselaboratory values have not been fully established. Small LDL-P 453 nmol/L (Normal) HDL-P (Total) 33.1 umol/L (Normal) Cholesterol, Total 166 mg/dL (Normal) Range: 100-199 Triglycerides 392 mg/dL (Abnormal) Range: 0-149 HDL-C 33 mg/dL (Abnormal) LDL-C 55 mg/dL (Normal) Range: 0-99 Comments: . Optimal < 100 Above optimal 100 - 129 Borderline 1 30 - 159 High 160 - 189 Very high > 189 .LDL-C is inaccurate if patient is non-fasting. LDL-P 987 nmol/L (Normal) Comments: Low < 1000 Moderate 1000 - 1299 Borderline-High 1300 - 1599 High 1600 - 2000 Very High > 2000 38-Mly-238139:10 HEPATIC FUNCTION PANEL Comments: in three months (approximately); PATIENT NOT FASTINGPERFORMED BY: LabCoKessler Institute for RehabilitationPsxkma9876 [facility] [id number] (76123) ALT (SGPT) 112 [iU]/L (Abnormal) Range: 0-32 AST (SGOT) 43 [iU]/L (Abnormal) Range: 0-40 Alkaline Phosphatase, S 88 [iU]/L (Normal) Range: 39-117 Bilirubin, Direct 0.11 mg/dL (Normal) Range: 0.00-0.40 Comments: Effective May 18, 2015 the reference interval for Bilirubin, Direct wll be changing to: Age Male Female 0 - 31 days 0.00 - 0.60 0.00 - 0.60 Children >31 days and Adults: 0.00 - 0.40 0.00 - 0.40 Bilirubin, Total 0.4 mg/dL (Normal) Range: 0.0-1.2 Albumin, Serum 4.3 g/dL (Normal) Range: 3.5-4.8 Protein, Total, Serum 6.6 g/dL (Normal) Range: 6.0-8.5 :32 Homocysteine, Plasma Comments: in three months (approximately); PATIENT WAS FASTINGPERFORMED BY: Tarisa[address] [id number] BY: Jianshu Forward Financial TechnologiesAlleghany Health [id number] (18410) Homocyst(e)ine, Plasma 9.3 umol/L (Normal) Range: 0.0-15.0 34-Kwc-520273:10 HEPATITIS PANEL (92556) Comments: today do; PATIENT NOT FASTINGPERFORMED BY: Zefanclub70 [facility] HealthcareConformityAlleghany Health [id number] Hep C Virus Ab 0.2 {s/co_ratio} (Normal) Range: 0.0-0.9 Comments: Negative: < 0.8 Indeterminate: 0.8 - 0.9 Positive: > 0.9 . The CDC recommends that a positive HCV antibody result be followed up with a HCV Nucleic Acid Amplification test (631156). Hep B Core Ab, IgM Negative (Normal) HBsAg Screen Negative (Normal) Hep A Ab, IgM Negative (Normal) :32 HEPATIC FUNCTION PANEL Comments: send copy to Dr. dejesus. do today; PATIENT WAS FASTINGPERFORMED BY: Tarisa[address] [id number] BY: Jianshu Oxgcrr2183 [facility] [id number]; apt today DB (21797) ALT (SGPT) 43 [iU]/L (Abnormal) Range: 0-32 AST (SGOT) 33 [iU]/L (Normal) Range: 0-40 Alkaline Phosphatase, S 98 [iU]/L (Normal) Range: 39-117 Bilirubin, Direct 0.14 mg/dL (Normal) Range: 0.00-0.40 Bilirubin, Total 0.5 mg/dL (Normal) Range: 0.0-1.2 Albumin, Serum 4.2 g/dL (Normal) Range: 3.5-4.8 Protein, Total, Serum 6.3 g/dL (Normal) Range: 6.0-8.5 68-Dxu-102675:48 HgA1C , Office (02116) HgA1C , Office 5.7 % (Normal) Range: 4.6 - 7.1 60-Fld-398576:34 FERRITIN (57862) Comments: PATIENT NOT FASTINGPERFORMED BY: Jianshu DimeAtrium Health [facility] [id number] Ferritin, Serum 246 ng/mL (Abnormal) Range: 15-150 26-Hnr-859957:34 CERULOPLASMIN (34786) Comments: PATIENT NOT FASTINGPERFORMED BY: Alluring LogicAlleghany Health [id number] Ceruloplasmin 24.7 mg/dL (Normal) Range: 19.0-39.0 :34 ASM (ANTI SMOOTH MUSCLE Comments: PATIENT NOT FASTINGPERFORMED BY: CuPcAkE & other things you bake Xavier SimulScribeAtrium Health [facility] [id number] ANTIBODY) (50665) Actin (Smooth Muscle) Antibody 7 {Units} (Normal) Range: 0-19 Comments: Negative 0 - 19 Weak positive 20 - 30 Moderate to strong positive >30 . Actin Antibodies are found in 52-85% of patients with autoimmune hepatitis or chronic active hepatitis and in 22% of patients with primary biliary cirrhosis. 77-Nkf-232721:34 ANTI-LIVER/KIDNEY MICROSOMAL Comments: PATIENT NOT FASTINGPERFORMED BY: Alluring LogicAlleghany Health [id number] ANTIBODY (98790) Thyroid Peroxidase (TPO) Ab 9 {IU/mL} (Normal) Range: 0-34 84-Wue-457797:34 JESS (ANTINUCLEAR ANTIBODY) Comments: PATIENT NOT FASTINGPERFORMED BY: [employer] [id number] (09793) JESS Direct Negative (Normal) :33 Microscopic Examination Comments: PATIENT WAS FASTINGPERFORMED BY: Alluring LogicAlleghany Health [id number] Bacteria Few (Normal) Mucus Threads Present (Normal) Epithelial Cells (non renal) 0-10 {/hpf} (Normal) Range: 0 - 10 RBC 0-2 {/hpf} (Normal) Range: 0 - 2 WBC 0-5 {/hpf} (Normal) Range: 0 - 5 69-Obf-291977:51 Rapid Flu (71578 x 2) Influenza A Ag neg a and b (Normal) 9-Tpn-763077:20 URINE RASHAD CULTURE-IDENTIFICATN Comments: PATIENT NOT FASTINGPERFORMED BY: LabCo Lvmzyx0988 [facility] [id number] Information: [id number] (92041) Antimicrobial MIHEAD (Normal) Comments: S = Susceptible; I = Intermediate; R = Resistant P = Positive; N = Negative MICS are expressed in micrograms per mL Antibiotic RSLT#1 RSLT#2 RS Susceptibility LT#3 RSLT#4Amoxicillin/Clavulanic Acid SAmpicillin RCefepime SCeftriaxone SCefuroxime SCephalothin SCiprofloxacin SGentamicin SImipenem SNitrofurantoin SPiperacillin RTetracycline STobram ycin STrimethoprim/Sulfa S Result 1 [place] Comments: Greater than 100,000 colony forming units per mL planticola (Abnormal) Urine Final report Culture,Comprehensive (Abnormal) :18 Urinalysis, Office (15957) UA - GLUCOSE Negative (Normal) UA - BILIRUBIN Negative (Normal) UA - KETONES Negative mg/dL (Normal) UA - SPECIFIC GRAVITY 1.010 (Normal) UA - BLOOD Hemolyzed Trace (Normal) UA - PH 5 (Abnormal) UA - PROTEIN Negative mg/dL (Normal) URINE UROBILINGN SILVESTRE TIMED Normal mg/dL (Normal) UA - NITRITE Positive (Normal) UA - LEUKOCYTE ESTERASE Trace (Normal) :33 URINALYSIS, W/ MICRO (26541) Comments: PATIENT WAS FASTINGPERFORMED BY: [facility] Iwdpbf0856 [facility] [id number] Microscopic Examination See below: (Normal) Comments: Microscopic was indicated and was performed. Nitrite, Urine Negative (Normal) Urobilinogen,Semi-Qn 0.2 mg/dL (Normal) Range: 0.2-1.0 Bilirubin Negative (Normal) Occult Blood Negative (Normal) Ketones Negative (Normal) Glucose Negative (Normal) Protein Negative (Normal) WBC Esterase 1+ (Abnormal) Appearance Clear (Normal) Urine-Color Yellow (Normal) pH 7.0 (Normal) Range: 5.0-7.5 Specific [place] 1.016 (Normal) Range: 1.005-1.030 :33 METABOLIC PANEL, COMPREHENSIVE Comments: PATIENT WAS FASTINGPERFORMED BY: LabInsight Surgical Hospital6370 [facility] [id number] (79256) ALT (SGPT) 51 [iU]/L (Abnormal) Range: 0-32 AST (SGOT) 29 [iU]/L (Normal) Range: 0-40 Alkaline Phosphatase, S 95 [iU]/L (Normal) Range: 39-117 Bilirubin, Total 0.5 mg/dL (Normal) Range: 0.0-1.2 A/G Ratio 1.7 (Normal) Range: 1.1-2.5 Globulin, Total 2.5 g/dL (Normal) Range: 1.5-4.5 Albumin, Serum 4.3 g/dL (Normal) Range: 3.5-4.8 Protein, Total, Serum 6.8 g/dL (Normal) Range: 6.0-8.5 Calcium, Serum 9.5 mg/dL (Normal) Range: 8.7-10.3 Carbon Dioxide, Total 23 mmol/L (Normal) Range: 18-29 Chloride, Serum 101 mmol/L (Normal) Range: 97-108 Potassium, Serum 4.3 mmol/L (Normal) Range: 3.5-5.2 Sodium, Serum 141 mmol/L (Normal) Range: 134-144 BUN/Creatinine Ratio 24 (Normal) Range: 11-26 eGFR If Africn Am 96 mL/min/1.73 (Normal) eGFR If NonAfricn Am 83 mL/min/1.73 (Normal) Creatinine, Serum 0.72 mg/dL (Normal) Range: 0.57-1.00 BUN 17 mg/dL (Normal) Range: 8-27 Glucose, Serum 113 mg/dL (Abnormal) Range: 65-99 :33 LIPID PANEL (96551) Comments: PATIENT WAS FASTINGPERFORMED BY: ElixserveKessler Institute for RehabilitationYsrblb8837 [facility] [id number] LDL/HDL Ratio 3.8 {ratio_units} (Abnormal) Range: 0.0-3.2 Comments: LDL/HDL Ratio Men Women 1/2 Avg.Risk 1.0 1.5 Av g.Risk 3.6 3.2 2X Avg.Risk 6.2 5.0 3X Avg.Risk 8.0 6.1 LDL Cholesterol Calc 111 mg/dL (Abnormal) Range: 0-99 VLDL Cholesterol Kelsi 68 mg/dL (Abnormal) Range: 5-40 HDL Cholesterol 29 mg/dL (Abnormal) Comments: According to ATP-III Guidelines, HDL-C >59 mg/dL is considered anegative risk factor for CHD. Triglycerides 342 mg/dL (Abnormal) Range: 0-149 Cholesterol, Total 208 mg/dL (Abnormal) Range: 100-199 13-Cpr-06511:33 CBC with auto diff Comments: PATIENT WAS FASTINGPERFORMED BY: ElixserveKessler Institute for RehabilitationGpqldb0335 [facility] [id number] Information: [id number]; apt. 5-24 (50894) Immature Grans (Abs) 0.0 {x10E3/uL} (Normal) Range: 0.0-0.1 Immature Granulocytes 0 % (Normal) Baso (Absolute) 0.0 {x10E3/uL} (Normal) Range: 0.0-0.2 Eos (Absolute) 0.2 {x10E3/uL} (Normal) Range: 0.0-0.4 Monocytes(Absolute) 0.3 {x10E3/uL} (Normal) Range: 0.1-0.9 Lymphs (Absolute) 2.1 {x10E3/uL} (Normal) Range: 0.7-3.1 Neutrophils (Absolute) 2.9 {x10E3/uL} (Normal) Range: 1.4-7.0 Basos 0 % (Normal) Eos 3 % (Normal) Monocytes 6 % (Normal) Lymphs 38 % (Normal) Neutrophils 53 % (Normal) Platelets 181 {x10E3/uL} (Normal) Range: 150-379 RDW 13.9 % (Normal) Range: 12.3-15.4 MCHC 32.2 g/dL (Normal) Range: 31.5-35.7 MCH 28.9 pg (Normal) Range: 26.6-33.0 MCV 90 fL (Normal) Range: 79-97 Hematocrit 44.4 % (Normal) Range: 34.0-46.6 Hemoglobin 14.3 g/dL (Normal) Range: 11.1-15.9 RBC 4.95 {x10E6/uL} (Normal) Range: 3.77-5.28 WBC 5.6 {x10E3/uL} (Normal) Range: 3.4-10.8 :48 HgA1C , Office (18228) HgA1C , Office 6.3 % (Normal) Range: 4.6 - 7.1 :59 METABOLIC PANEL, COMPREHENSIVE Comments: PATIENT WAS FASTINGPERFORMED BY: LabCoKessler Institute for RehabilitationAvpdje0733 [facility] [id number] (48021) ALT (SGPT) 44 [iU]/L (Abnormal) Range: 0-32 AST (SGOT) 29 [iU]/L (Normal) Range: 0-40 Alkaline Phosphatase, S 101 [iU]/L (Normal) Range: 39-117 Bilirubin, Total 0.5 mg/dL (Normal) Range: 0.0-1.2 A/G Ratio 1.7 (Normal) Range: 1.1-2.5 Globulin, Total 2.6 g/dL (Normal) Range: 1.5-4.5 Albumin, Serum 4.4 g/dL (Normal) Range: 3.5-4.8 Protein, Total, Serum 7.0 g/dL (Normal) Range: 6.0-8.5 Calcium, Serum 9.6 mg/dL (Normal) Range: 8.7-10.3 Carbon Dioxide, Total 22 mmol/L (Normal) Range: 18-29 Chloride, Serum 101 mmol/L (Normal) Range: 97-108 Potassium, Serum 4.4 mmol/L (Normal) Range: 3.5-5.2 Sodium, Serum 140 mmol/L (Normal) Range: 134-144 BUN/Creatinine Ratio 25 (Normal) Range: 11-26 eGFR If Africn Am 85 mL/min/1.73 (Normal) eGFR If NonAfricn Am 73 mL/min/1.73 (Normal) Creatinine, Serum 0.80 mg/dL (Normal) Range: 0.57-1.00 BUN 20 mg/dL (Normal) Range: 8-27 Glucose, Serum 135 mg/dL (Abnormal) Range: 65-99 :59 LIPID PANEL (55891) Comments: PATIENT WAS FASTINGPERFORMED BY: [facility]6370 [facility] [id number] LDL/HDL Ratio 4.1 {ratio_units} (Abnormal) Range: 0.0-3.2 Comments: LDL/HDL Ratio Men Women 1/2 Avg.Risk 1.0 1.5 Av g.Risk 3.6 3.2 2X Avg.Risk 6.2 5.0 3X Avg.Risk 8.0 6.1 LDL Cholesterol Calc 131 mg/dL (Abnormal) Range: 0-99 VLDL Cholesterol Kelsi 76 mg/dL (Abnormal) Range: 5-40 HDL Cholesterol 32 mg/dL (Abnormal) Comments: According to ATP-III Guidelines, HDL-C >59 mg/dL is considered anegative risk factor for CHD. Triglycerides 380 mg/dL (Abnormal) Range: 0-149 Cholesterol, Total 239 mg/dL (Abnormal) Range: 100-199 :59 CBC with auto diff Comments: PATIENT WAS FASTINGPERFORMED BY: LabCoKessler Institute for RehabilitationQmpoqc1252 [facility] [id number] Information: [id number] (60787) Immature Grans (Abs) 0.0 {x10E3/uL} (Normal) Range: 0.0-0.1 Immature Granulocytes 0 % (Normal) Baso (Absolute) 0.0 {x10E3/uL} (Normal) Range: 0.0-0.2 Eos (Absolute) 0.2 {x10E3/uL} (Normal) Range: 0.0-0.4 Monocytes(Absolute) 0.5 {x10E3/uL} (Normal) Range: 0.1-0.9 Lymphs (Absolute) 2.0 {x10E3/uL} (Normal) Range: 0.7-3.1 Neutrophils (Absolute) 3.1 {x10E3/uL} (Normal) Range: 1.4-7.0 Basos 1 % (Normal) Eos 3 % (Normal) Monocytes 9 % (Normal) Lymphs 34 % (Normal) Neutrophils 53 % (Normal) Platelets 198 {x10E3/uL} (Normal) Range: 150-379 RDW 14.5 % (Normal) Range: 12.3-15.4 MCHC 33.9 g/dL (Normal) Range: 31.5-35.7 MCH 29.2 pg (Normal) Range: 26.6-33.0 MCV 86 fL (Normal) Range: 79-97 Hematocrit 43.3 % (Normal) Range: 34.0-46.6 Hemoglobin 14.7 g/dL (Normal) Range: 11.1-15.9 RBC 5.03 {x10E6/uL} (Normal) Range: 3.77-5.28 WBC 5.8 {x10E3/uL} (Normal) Range: 3.4-10.8 :55 Urinalysis, Office ([id number]) UA - LEUKOCYTE ESTERASE Small (Normal) UA - NITRITE Negative (Normal) URINE UROBILINGN SILVESTRE TIMED Normal mg/dL (Normal) UA - PROTEIN Negative mg/dL (Normal) UA - PH 7 (Normal) UA - BLOOD Negative (Normal) UA - SPECIFIC GRAVITY 1.010 (Normal) UA - KETONES Negative mg/dL (Normal) UA - BILIRUBIN Negative (Normal) UA - GLUCOSE Negative (Normal) :45 CBC W/Diff, Automated Comments: Test performed at:[facility] [id number] [place], [place] [id number] Absolute Lymph 2.36 {X10_3/ul} (Normal) Range: 0.83-4.51 Absolute Neut 9.5 {X10_3/uL} (Abnormal) Range: 2.0-7.7 IM GRAN % 0.200 % (Normal) Range: 0.0-0.9 Comments: IG% - Immature Granulocytes (promyelocytes, myelocytes andmetamyelocytes) > 1% indicates that a LEFT SHIFT is Present. BASO% 0.1 % (Normal) Range: 0-1 EO% 1.2 % (Normal) Range: 0-5 MONO% 7.4 % (Normal) Range: 0-10 LY% 18.2 % (Abnormal) Range: 19-41 NEUT% 72.9 % (Abnormal) Range: 47-70 MPV 9.3 fL (Normal) Range: 6.2-12.0 PLT 218 K/mm3 (Normal) Range: 150-450 RDW SD 44.0 fL (Abnormal) Range: 35.1-43.9 RDW CV 13.7 % (Normal) Range: 11.6-14.6 MCHC 33.9 {g/gl} (Normal) Range: 32-36 MCH 29.9 pg (Normal) Range: 27.0-32.0 MCV 88.3 fL (Normal) Range: 81-99 HCT 40.7 % (Normal) Range: 37-47 HGB 13.8 g/dL (Normal) Range: 12.0-15.0 RBC 4.61 {M/mm3} (Normal) Range: 4.2-5.4 WBC 13.0 K/mm3 (Abnormal) Range: 4.4-11.0 94-Hcs-97572:45 Comprehensive Metabolic Profil Comments: Test performed at:[facility] [address] [place] [address] GAP 5 (Normal) Range: 5-15 CO2 27.0 mmol/L (Normal) Range: 21.0-32.0 CL 103 mmol/L (Normal) Range: 98-107 K 3.9 mmol/L (Normal) Range: 3.5-5.1 NA 135 mmol/L (Abnormal) Range: 136-145 T BILI 0.80 mg/dL (Normal) Range: 0.20-1.00 ALT 39 U/L (Normal) Range: 12-78 ALK P 108 U/L (Normal) Range: 50-136 AST 21 U/L (Normal) Range: 15-37 CA 8.4 mg/dL (Abnormal) Range: 8.5-10.1 A/G 1.1 {RATIO} (Normal) Range: 0.9-2.4 GLOB 3.4 g/dL (Normal) Range: 2.3-3.5 ALB 3.7 g/dL (Normal) Range: 3.4-5.0 T PROT 7.1 g/dL (Normal) Range: 6.4-8.2 BUN/CRE 17.0 {RATIO} (Normal) Range: 10-20 Estimated CRCL 45.03 ml/min (Normal) CREAT,SERUM 0.88 mg/dL (Normal) Range: 0.55-1.20 Comments: Please note revised CREATININE reference range sweqgojjv80/22/2015. BUN 15 mg/dL (Normal) Range: 7-18 GLU 134 mg/dL (Abnormal) Range: 70-110 Comments: Fasting Glucose result greater than or equal to 126 mg/dLsuggests DIABETES MELLITUS per A.D.A. criteria. :45 Lipase Comments: Test performed at:[facility] [address] [place] [address] LIPASE 215 U/L (Normal) Range: 73-393 :32 Urinalysis, Complete Comments: Order Date: 12/16/14How was Urine Obtained? CLEAN CATCHTest performed at:[facility] [address] [place] [address] MUCUS, URINE 0 SEEN {/hpf} (Normal) BACTERIA 0 SEEN {/hpf} (Normal) SQUAM EPI 0-5 SEEN {/hpf} (Normal) Range: 5-10 RBC-UA 0-5 SEEN {/hpf} (Normal) Range: 0-5 WBC 0-5 SEEN {/hpf} (Normal) Range: 0-5 LEUK ESTERASE Negative /ul (Normal) OCCULT BLOOD-UR 10 /ul (Abnormal) NITRITE UR Negative (Normal) UROBILI Normal mg/dL (Normal) PROT DIPSTX Negative mg/dL (Normal) pH UR 7.0 (Normal) Range: 5.0 - 8.0 SP.GR. DIPSTX 1.010 (Normal) Range: 1.002-1.030 KETONE UR Negative mg/dL (Normal) BILIRUBIN URINE Negative mg/dL (Normal) GLUCOSE, UR Normal mg/dL (Normal) CLARITY Clear (Normal) COLOR Yellow (Normal) :31 Metabolic Panel, Comprehensive Comments: PATIENT NOT FASTINGPERFORMED BY: [facility] [address] [place] [id number] ([id number]) ALT (SGPT) 44 [iU]/L (Abnormal) Range: 0-32 AST (SGOT) 32 [iU]/L (Normal) Range: 0-40 Alkaline Phosphatase, S 117 [iU]/L (Normal) Range: 39-117 Bilirubin, Total 0.5 mg/dL (Normal) Range: 0.0-1.2 A/G Ratio 2.0 (Normal) Range: 1.1-2.5 Globulin, Total 2.2 g/dL (Normal) Range: 1.5-4.5 Albumin, Serum 4.4 g/dL (Normal) Range: 3.5-4.8 Protein, Total, Serum 6.6 g/dL (Normal) Range: 6.0-8.5 Calcium, Serum 9.4 mg/dL (Normal) Range: 8.7-10.3 Carbon Dioxide, Total 24 mmol/L (Normal) Range: 18-29 Chloride, Serum 96 mmol/L (Abnormal) Range: 97-108 Potassium, Serum 4.1 mmol/L (Normal) Range: 3.5-5.2 Sodium, Serum 137 mmol/L (Normal) Range: 134-144 BUN/Creatinine Ratio 17 (Normal) Range: 11-26 eGFR If Africn Am 80 mL/min/1.73 (Normal) eGFR If NonAfricn Am 70 mL/min/1.73 (Normal) Creatinine, Serum 0.84 mg/dL (Normal) Range: 0.57-1.00 BUN 14 mg/dL (Normal) Range: 8-27 Glucose, Serum 106 mg/dL (Abnormal) Range: 65-99 21-Wio-02586:31 CBC, Platelets & Auto Diff Comments: PATIENT NOT FASTINGPERFORMED BY: [facility]CoKessler Institute for RehabilitationTaejws7787 [facility] [id number] Information: [id number] (94486) Immature Grans (Abs) 0.0 {x10E3/uL} (Normal) Range: 0.0-0.1 Immature Granulocytes 0 % (Normal) Baso (Absolute) 0.0 {x10E3/uL} (Normal) Range: 0.0-0.2 Eos (Absolute) 0.5 {x10E3/uL} (Abnormal) Range: 0.0-0.4 Monocytes(Absolute) 0.9 {x10E3/uL} (Normal) Range: 0.1-0.9 Lymphs (Absolute) 3.7 {x10E3/uL} (Abnormal) Range: 0.7-3.1 Neutrophils (Absolute) 4.5 {x10E3/uL} (Normal) Range: 1.4-7.0 Basos 0 % (Normal) Eos 5 % (Normal) Monocytes 9 % (Normal) Lymphs 39 % (Normal) Neutrophils 47 % (Normal) Platelets 179 {x10E3/uL} (Normal) Range: 150-379 RDW 13.9 % (Normal) Range: 12.3-15.4 MCHC 33.9 g/dL (Normal) Range: 31.5-35.7 MCH 29.0 pg (Normal) Range: 26.6-33.0 MCV 85 fL (Normal) Range: 79-97 Hematocrit 41.6 % (Normal) Range: 34.0-46.6 Hemoglobin 14.1 g/dL (Normal) Range: 11.1-15.9 RBC 4.87 {x10E6/uL} (Normal) Range: 3.77-5.28 WBC 9.6 {x10E3/uL} (Normal) Range: 3.4-10.8 :05 Rapid Flu (68318 x 2) Comments: pos A Influenza A Ag positive A (Normal) :55 [id number] (79845) Comments: today; PATIENT NOT FASTINGPERFORMED BY: [facility]serveKess[facility] Institute for RehabilitationPmhfxq1073 [facility] [id number] AFP, Serum, Tumor Marker 5.4 ng/mL (Normal) Range: 0.0-8.3 Comments: [employer] ECLIA methodology :55 HEPATITIS PANEL (33423) Comments: today; PATIENT NOT FASTINGPERFORMED BY: [facility]6370 [facility] [id number] Information: [id number] Hep C Virus Ab <0.1 {s/co_ratio} (Normal) Range: 0.0-0.9 Comments: Negative: < 0.8 Indeterminate: 0.8 - 0.9 Positive: > 0.9 . In order to reduce the incidence of a false positive result, the CDC recommends that all s/co ratios between 1.0 and 10.9 be confirmed by a more specific supplemental or PCR testing. [facility] offers HCV Ab w/Reflex to Verification test #[id number]. Hep B Core Ab, IgM Negative (Normal) HBsAg Screen Negative (Normal) Hep A Ab, IgM Negative (Normal) :21 HEPATIC FUNCTION PANEL Comments: repeat in 6 weeks around ; PATIENT NOT FASTINGPERFORMED BY: [facility] [place] [address] [id number] Information: [id number] (78235) ALT (SGPT) 38 [iU]/L (Abnormal) Range: 0-32 AST (SGOT) 28 [iU]/L (Normal) Range: 0-40 Alkaline Phosphatase, S 124 [iU]/L (Abnormal) Range: 39-117 Bilirubin, Direct 0.15 mg/dL (Normal) Range: 0.00-0.40 Bilirubin, Total 0.6 mg/dL (Normal) Range: 0.0-1.2 Albumin, Serum 4.2 g/dL (Normal) Range: 3.5-4.8 Protein, Total, Serum 6.5 g/dL (Normal) Range: 6.0-8.5 :09 Microscopic Examination Comments: PATIENT WAS FASTINGPERFORMED BY: [facility]6370 [facility] [id number] Bacteria Few (Normal) Epithelial Cells (non renal) 0-10 {/hpf} (Normal) Range: 0 - 10 RBC 0-2 {/hpf} (Normal) Range: 0 - 2 WBC 11-30 {/hpf} (Abnormal) Range: 0 - 5 59-Tfb-538804:50 HgA1C , Office (72640) HgA1C , Office 5.8 % (Normal) Range: 4.6 - 7.1 :09 URINALYSIS, W/ MICRO (77785) Comments: PATIENT WAS FASTINGPERFORMED BY: [place] 3907770 [facility] [id number] Microscopic Examination See below: (Normal) Comments: Microscopic was indicated and was performed. Nitrite, Urine Negative (Normal) Urobilinogen,Semi-Qn 0.2 mg/dL (Normal) Range: 0.0-1.9 Bilirubin Negative (Normal) Occult Blood Negative (Normal) Ketones Negative (Normal) Glucose Negative (Normal) Protein Negative (Normal) WBC Esterase 3+ (Abnormal) Appearance Clear (Normal) Urine-Color Yellow (Normal) pH 7.0 (Normal) Range: 5.0-7.5 Specific [place] 1.014 (Normal) Range: 1.005-1.030 :09 METABOLIC PANEL, COMPREHENSIVE Comments: PATIENT WAS FASTINGPERFORMED BY: [facility]6370 [facility] [id number] (42443) ALT (SGPT) 41 [iU]/L (Abnormal) Range: 0-32 AST (SGOT) 29 [iU]/L (Normal) Range: 0-40 Alkaline Phosphatase, S 121 [iU]/L (Abnormal) Range: 39-117 Bilirubin, Total 0.6 mg/dL (Normal) Range: 0.0-1.2 A/G Ratio 2.0 (Normal) Range: 1.1-2.5 Globulin, Total 2.2 g/dL (Normal) Range: 1.5-4.5 Albumin, Serum 4.4 g/dL (Normal) Range: 3.5-4.8 Protein, Total, Serum 6.6 g/dL (Normal) Range: 6.0-8.5 Calcium, Serum 9.7 mg/dL (Normal) Range: 8.6-10.2 Carbon Dioxide, Total 22 mmol/L (Normal) Range: 18-29 Chloride, Serum 99 mmol/L (Normal) Range: 97-108 Potassium, Serum 4.3 mmol/L (Normal) Range: 3.5-5.2 Sodium, Serum 140 mmol/L (Normal) Range: 134-144 BUN/Creatinine Ratio 16 (Normal) Range: 11-26 eGFR If Africn Am 81 mL/min/1.73 (Normal) eGFR If NonAfricn Am 71 mL/min/1.73 (Normal) Creatinine, Serum 0.83 mg/dL (Normal) Range: 0.57-1.00 BUN 13 mg/dL (Normal) Range: 8-27 Glucose, Serum 112 mg/dL (Abnormal) Range: 65-99 Comments: Abnormal results possibly due to prolonged exposure of serum to cells. :09 LIPID PANEL (87956) Comments: PATIENT WAS FASTINGPERFORMED BY: [facility]serveKessler Institute for RehabilitationRrjlgf1069 [facility] [id number] VLDL Cholesterol Kelsi VLDLCH mg/dL (Normal) Range: 5-40 Comments: The calculation for the VLDL cholesterol is not valid whentriglyceride level is >400 mg/dL.Triglyceride result indicated is too high for an accurate LDLcholesterol estimation. HDL Cholesterol 34 mg/dL (Abnormal) Comments: According to ATP-III Guidelines, HDL-C >59 mg/dL is considered anegative risk factor for CHD. Triglycerides 497 mg/dL (Abnormal) Range: 0-149 Cholesterol, Total 233 mg/dL (Abnormal) Range: 100-199 14-Ptg-515555:09 CBC W/AUTO DIFF WBC Comments: PATIENT WAS FASTINGPERFORMED BY: [employer]6370 [facility] [id number] Information: [id number] (76336) Immature Grans (Abs) 0.0 {x10E3/uL} (Normal) Range: 0.0-0.1 Immature Granulocytes 0 % (Normal) Baso (Absolute) 0.0 {x10E3/uL} (Normal) Range: 0.0-0.2 Eos (Absolute) 0.2 {x10E3/uL} (Normal) Range: 0.0-0.4 Monocytes(Absolute) 0.4 {x10E3/uL} (Normal) Range: 0.1-0.9 Lymphs (Absolute) 2.1 {x10E3/uL} (Normal) Range: 0.7-3.1 Neutrophils (Absolute) 3.3 {x10E3/uL} (Normal) Range: 1.4-7.0 Basos 0 % (Normal) Eos 3 % (Normal) Monocytes 6 % (Normal) Lymphs 35 % (Normal) Neutrophils 56 % (Normal) Platelets 171 {x10E3/uL} (Normal) Range: 150-379 RDW 14.0 % (Normal) Range: 12.3-15.4 MCHC 34.2 g/dL (Normal) Range: 31.5-35.7 MCH 29.8 pg (Normal) Range: 26.6-33.0 MCV 87 fL (Normal) Range: 79-97 Hematocrit 44.2 % (Normal) Range: 34.0-46.6 Hemoglobin 15.1 g/dL (Normal) Range: 11.1-15.9 RBC 5.07 {x10E6/uL} (Normal) Range: 3.77-5.28 WBC 6.0 {x10E3/uL} (Normal) Range: 3.4-10.8 :39 MICROALBUMIN: CREATININE RATIO Comments: PATIENT WAS FASTINGPERFORMED BY: [facility]6370 [facility] HealthcareConformityAlleghany Health [id number] (79512) AND (15108) Microalb/Creat Ratio 2.7 {mg/g_creat} (Normal) Range: 0.0-30.0 Microalbumin, Urine 1.5 ug/mL (Normal) Range: 0.0-17.0 Creatinine, Urine 54.8 mg/dL (Normal) Range: 15.0-278.0 :39 METABOLIC PANEL, COMPREHENSIVE Comments: PATIENT WAS FASTINGPERFORMED BY: [employer]70 [facility] [id number] (55203) ALT (SGPT) 41 [iU]/L (Abnormal) Range: 0-32 AST (SGOT) 28 [iU]/L (Normal) Range: 0-40 Alkaline Phosphatase, S 125 [iU]/L (Abnormal) Range: 39-117 Bilirubin, Total 0.5 mg/dL (Normal) Range: 0.0-1.2 A/G Ratio 1.9 (Normal) Range: 1.1-2.5 Globulin, Total 2.3 g/dL (Normal) Range: 1.5-4.5 Albumin, Serum 4.3 g/dL (Normal) Range: 3.5-4.8 Protein, Total, Serum 6.6 g/dL (Normal) Range: 6.0-8.5 Calcium, Serum 10.0 mg/dL (Normal) Range: 8.6-10.2 Carbon Dioxide, Total 22 mmol/L (Normal) Range: 19-28 Chloride, Serum 99 mmol/L (Normal) Range: 97-108 Potassium, Serum 4.3 mmol/L (Normal) Range: 3.5-5.2 Sodium, Serum 138 mmol/L (Normal) Range: 134-144 BUN/Creatinine Ratio 18 (Normal) Range: 11-26 eGFR If Africn Am 73 mL/min/1.73 (Normal) eGFR If NonAfricn Am 64 mL/min/1.73 (Normal) Creatinine, Serum 0.91 mg/dL (Normal) Range: 0.57-1.00 BUN 16 mg/dL (Normal) Range: 8-27 Glucose, Serum 106 mg/dL (Abnormal) Range: 65-99 :39 LIPID PANEL (07384) Comments: PATIENT WAS FASTINGPERFORMED BY: [employer]70 [facility] [id number] VLDL Cholesterol Kelsi VLDLCH mg/dL (Normal) Range: 5-40 Comments: The calculation for the VLDL cholesterol is not valid whentriglyceride level is >400 mg/dL.Triglyceride result indicated is too high for an accurate LDLcholesterol estimation. HDL Cholesterol 29 mg/dL (Abnormal) Comments: According to ATP-III Guidelines, HDL-C >59 mg/dL is considered anegative risk factor for CHD. Triglycerides 591 mg/dL (Abnormal) Range: 0-149 Cholesterol, Total 245 mg/dL (Abnormal) Range: 100-199 :39 CBC WITH MANUAL DIFF Comments: PATIENT WAS FASTINGPERFORMED BY: [facility]6370 [facility] [id number] Information: [id number] (69119) Immature Grans (Abs) 0.0 {x10E3/uL} (Normal) Range: 0.0-0.1 Immature Granulocytes 0 % (Normal) Range: 0-2 Baso (Absolute) 0.0 {x10E3/uL} (Normal) Range: 0.0-0.2 Eos (Absolute) 0.2 {x10E3/uL} (Normal) Range: 0.0-0.4 Monocytes(Absolute) 0.4 {x10E3/uL} (Normal) Range: 0.1-0.9 Lymphs (Absolute) 2.5 {x10E3/uL} (Normal) Range: 0.7-3.1 Neutrophils (Absolute) 3.3 {x10E3/uL} (Normal) Range: 1.4-7.0 Basos 0 % (Normal) Range: 0-3 Eos 3 % (Normal) Range: 0-5 Monocytes 6 % (Normal) Range: 4-12 Lymphs 40 % (Normal) Range: 14-46 Neutrophils 51 % (Normal) Range: 40-74 Platelets 166 {x10E3/uL} (Normal) Range: 155-379 RDW 15.5 % (Abnormal) Range: 12.3-15.4 MCHC 33.9 g/dL (Normal) Range: 31.5-35.7 MCH 28.9 pg (Normal) Range: 26.6-33.0 MCV 85 fL (Normal) Range: 79-97 Hematocrit 43.1 % (Normal) Range: 34.0-46.6 Hemoglobin 14.6 g/dL (Normal) Range: 11.1-15.9 RBC 5.05 {x10E6/uL} (Normal) Range: 3.77-5.28 WBC 6.3 {x10E3/uL} (Normal) Range: 3.4-10.8 :39 HEPATIC FUNCTION PANEL Comments: recheck in 8 weeks; PATIENT WAS FASTINGPERFORMED BY: [employer]70 [facility]fterAt[facility] [id number] (08752) Bilirubin, Direct 0.12 mg/dL (Normal) Range: 0.00-0.40 :35 Blood Glucose , Office (02873) Blood Glucose , Office 161 (Normal) :35 HgA1C , Office (43023) HgA1C , Office 5.6 % (Normal) Range: 4.6 - 7.1 :36 TSH (34449) Comments: Forward to Dr Avery Cobb, [place] [phone]; PATIENT WAS FASTINGPERFORMED BY: LabMegadynerp Mqjirc8907 [facility]in [place] [id number] TSH 2.620 {uIU/mL} (Normal) Range: 0.450-4.500 :36 CBC with manual diff Comments: Forward to Dr Avery Cobb, [place] [phone]; PATIENT WAS FASTINGPERFORMED BY: [facility] Umdxmn4615 [facility] [id number] Informat ion: [id number] CC:[id number] (89530) Immature Grans (Abs) 0.0 {x10E3/uL} (Normal) Range: 0.0-0.1 Immature Granulocytes 0 % (Normal) Range: 0-2 Baso (Absolute) 0.0 {x10E3/uL} (Normal) Range: 0.0-0.2 Eos (Absolute) 0.3 {x10E3/uL} (Normal) Range: 0.0-0.4 Monocytes(Absolute) 0.4 {x10E3/uL} (Normal) Range: 0.1-0.9 Lymphs (Absolute) 2.2 {x10E3/uL} (Normal) Range: 0.7-3.1 Neutrophils (Absolute) 4.3 {x10E3/uL} (Normal) Range: 1.4-7.0 Basos 0 % (Normal) Range: 0-3 Eos 4 % (Normal) Range: 0-5 Monocytes 5 % (Normal) Range: 4-12 Lymphs 31 % (Normal) Range: 14-46 Neutrophils 60 % (Normal) Range: 40-74 Platelets 211 {x10E3/uL} (Normal) Range: 155-379 RDW 14.6 % (Normal) Range: 12.3-15.4 MCHC 32.9 g/dL (Normal) Range: 31.5-35.7 MCH 28.3 pg (Normal) Range: 26.6-33.0 MCV 86 fL (Normal) Range: 79-97 Hematocrit 43.4 % (Normal) Range: 34.0-46.6 Hemoglobin 14.3 g/dL (Normal) Range: 11.1-15.9 RBC 5.06 {x10E6/uL} (Normal) Range: 3.77-5.28 WBC 7.2 {x10E3/uL} (Normal) Range: 3.4-10.8 :36 Metabolic Panel, Comprehensive Comments: Forward to Dr Avery Cobb, [place], [phone]; PATIENT WAS FASTINGPERFORMED BY: [facility] Eotisf2127 [facility] [id number] ([id number]) ALT (SGPT) 33 [iU]/L (Abnormal) Range: 0-32 AST (SGOT) 23 [iU]/L (Normal) Range: 0-40 Alkaline Phosphatase, S 120 [iU]/L (Abnormal) Range: 39-117 Bilirubin, Total 0.5 mg/dL (Normal) Range: 0.0-1.2 A/G Ratio 1.8 (Normal) Range: 1.1-2.5 Globulin, Total 2.4 g/dL (Normal) Range: 1.5-4.5 Albumin, Serum 4.2 g/dL (Normal) Range: 3.5-4.8 Protein, Total, Serum 6.6 g/dL (Normal) Range: 6.0-8.5 Calcium, Serum 10.0 mg/dL (Normal) Range: 8.6-10.2 Carbon Dioxide, Total 24 mmol/L (Normal) Range: 19-28 Chloride, Serum 101 mmol/L (Normal) Range: 97-108 Potassium, Serum 4.3 mmol/L (Normal) Range: 3.5-5.2 Sodium, Serum 138 mmol/L (Normal) Range: 134-144 BUN/Creatinine Ratio 17 (Normal) Range: 11-26 eGFR If Africn Am 79 mL/min/1.73 (Normal) eGFR If NonAfricn Am 68 mL/min/1.73 (Normal) Creatinine, Serum 0.86 mg/dL (Normal) Range: 0.57-1.00 BUN 15 mg/dL (Normal) Range: 8-27 Glucose, Serum 119 mg/dL (Abnormal) Range: 65-99 2-Oap-469563:29 URINE RASHAD CULTURE-SILVESTRE COL Comments: PATIENT NOT FASTINGPERFORMED BY: [facility] Wmmshd9382 [facility] [id number] Information: SRC: [id number] COUNT (07617) Result 1 ENTEAE (Normal) Comments: Enterobacter aerogenes1,000 Colonies/mL S = Susceptible; I = Intermediate; R = Resistant P = Positive; N = Negative MICS are expressed in micrograms per mL A ntibiotic RSLT#1 RSLT#2 RSLT#3 RSLT#4Amoxicillin/Clavulanic Acid RCefazolin RCefepime SCeftriaxone SCefuroxime SCephalothin RCiprofloxacin SErtapenem SGentamicin SImipenem SLevofloxacin SNitrofurantoin RPiperacillin STetracycline STobramycin STrimethoprim/Sulfa S Urine Final report (Normal) Culture,Comprehensiv e 8-Pds-295291:14 Urinalysis, Office (46446) UA - LEUKOCYTE ESTERASE Large (Normal) UA - NITRITE Negative (Normal) URINE UROBILINGN SILVESTRE TIMED Normal mg/dL (Normal) UA - PROTEIN Negative mg/dL (Normal) UA - PH 7 (Normal) UA - BLOOD Hemolyzed Small (Normal) UA - SPECIFIC GRAVITY 1.015 (Normal) UA - KETONES Negative mg/dL (Normal) UA - BILIRUBIN Negative (Normal) UA - GLUCOSE Negative (Normal) 03-Itb-033096:22 URINE RASHAD CULTURE-SILVESTRE COL Comments: PATIENT NOT FASTINGPERFORMED BY: [facility] Duyplz3925 [facility] [id number] Information: SRC:UR [id number] COUNT (86016) Antimicrobial MIHEAD (Normal) Comments: S = Susceptible; I = Intermediate; R = Resistant P = Positive; N = Negative MICS are expressed in micrograms per mL Antibiotic RSLT#1 RSLT#2 Susceptibility RSLT#3 RSLT#4Amoxicillin/Clavulanic Acid SAmpicillin SCefazolin SCefepime SCeftriaxone SCefuroxime SCephalothin SCiprofloxacin SESBL NErtapenem SGentamicin SImipenem S Levofloxacin SNitrofurantoin SPiperacillin STetracycline STobramycin STrimethoprim/Sulfa S Result 1 Escherichia coli Comments: Greater than 100,000 colony forming units per mL (Normal) Urine Final report Culture,Comprehensive (Normal) 69-Wwq-967059:24 Urinalysis, Office (82268) UA - BILIRUBIN Negative (Normal) UA - BLOOD Negative (Normal) UA - GLUCOSE Negative (Normal) UA - KETONES Negative mg/dL (Normal) UA - LEUKOCYTE ESTERASE Trace (Normal) UA - NITRITE Negative (Normal) UA - PH 7.0 (Normal) UA - PROTEIN Negative mg/dL (Normal) UA - SPECIFIC GRAVITY 1.015 (Normal) URINE UROBILINGN SILVESTRE TIMED 2 mg/dL (Normal) 90-Tak-95367:28 Metabolic Panel, Basic Comments: PATIENT NOT FASTINGPERFORMED BY: LabCoJam[place] 4165370 [facility] [id number] Information: [id number] (70127) Calcium, Serum 10.1 mg/dL (Normal) Range: 8.6-10.2 Carbon Dioxide, Total 25 mmol/L (Normal) Range: 19-28 Chloride, Serum 99 mmol/L (Normal) Range: 97-108 Potassium, Serum 3.8 mmol/L (Normal) Range: 3.5-5.2 Sodium, Serum 139 mmol/L (Normal) Range: 134-144 BUN/Creatinine Ratio 19 (Normal) Range: 11-26 eGFR If Africn Am 65 mL/min/1.73 (Normal) eGFR If NonAfricn Am 57 mL/min/1.73 (Abnormal) Creatinine, Serum 1.00 mg/dL (Normal) Range: 0.57-1.00 BUN 19 mg/dL (Normal) Range: 8-27 Glucose, Serum 94 mg/dL (Normal) Range: 65-99 88-Ocj-49086:57 MAGNESIUM (55565) Comments: PATIENT NOT FASTINGPERFORMED BY: [facility]CoJam[place] [id number] [facility] [id number] Magnesium, Serum 1.9 mg/dL (Normal) Range: 1.6-2.6 35-Htf-77624:57 Metabolic Panel, Basic Comments: PATIENT NOT FASTINGPERFORMED BY: [facility]CoJam[place] 4165370 [facility] [id number] Information: ADD [id number] AND DRAW FEE 99 4560 (64604) Calcium, Serum 9.9 mg/dL (Normal) Range: 8.6-10.2 Carbon Dioxide, Total 25 mmol/L (Normal) Range: 19-28 Chloride, Serum 96 mmol/L (Abnormal) Range: 97-108 Potassium, Serum 3.4 mmol/L (Abnormal) Range: 3.5-5.2 Comments: Client Requested Flag Sodium, Serum 141 mmol/L (Normal) Range: 134-144 BUN/Creatinine Ratio 19 (Normal) Range: 11-26 eGFR If Africn Am 73 mL/min/1.73 (Normal) eGFR If NonAfricn Am 64 mL/min/1.73 (Normal) Creatinine, Serum 0.91 mg/dL (Normal) Range: 0.57-1.00 BUN 17 mg/dL (Normal) Range: 8-27 Glucose, Serum 110 mg/dL (Abnormal) Range: 65-99 :12 Renal function Panel Comments: PATIENT NOT FASTINGPERFORMED BY: Jianshu Odebzg0031 [facility] [id number] Information: [id number] (11753) Albumin, Serum 4.1 g/dL (Normal) Range: 3.5-4.8 Phosphorus, Serum 3.4 mg/dL (Normal) Range: 2.5-4.5 Calcium, Serum 9.6 mg/dL (Normal) Range: 8.6-10.2 Carbon Dioxide, Total 22 mmol/L (Normal) Range: 19-28 Chloride, Serum 100 mmol/L (Normal) Range: 97-108 Potassium, Serum 3.8 mmol/L (Normal) Range: 3.5-5.2 Sodium, Serum 139 mmol/L (Normal) Range: 134-144 BUN/Creatinine Ratio 16 (Normal) Range: 11-26 eGFR If Africn Am 80 mL/min/1.73 (Normal) eGFR If NonAfricn Am 69 mL/min/1.73 (Normal) Creatinine, Serum 0.85 mg/dL (Normal) Range: 0.57-1.00 BUN 14 mg/dL (Normal) Range: 8-27 Glucose, Serum 101 mg/dL (Abnormal) Range: 65-99 :12 Magnesium (18217) Comments: PATIENT NOT FASTINGPERFORMED BY: [facility] RehabilitationFxssun[address] [facility] [id number] Magnesium, Serum 1.7 mg/dL (Normal) Range: 1.6-2.6 [id number] KNEE 4 OR MORE VIEWS Radiology See Note Comments: STUDY: X-RAY - Right KNEE REASON FOR EXAM: Female, 72 years old. Knee pain following a fall.History of rheumatoid arthritis. TECHNIQUE: 4 views of the knee. COMPARISON: None. Report (Normal) FINDINGS:Normal visualized distal femur. Normal visualized proximal tibia andfibula. There is mild arthrosis of the proximal tibiofibulararticulation.Minimal synovial thickening. Norm al medial femorotibial compartment. Normal lateral femorotibialcompartment. Normal patellofemoral articulation. There are atherosclerotic calcifications. IMPRESSION: Minimal synovial thickening. Signed:Archie Alvares M.D.December 05, 2012 at 11:41:24 AM [id number] Signed GP/GP If you are the referring physician and would like to consult with th eradiologist who provided this interpretation, please contact Maurilio Miller at [phone]. If this radiologist is unavailable, youwill be directed to another radiologist to assist. If you ar e a patient with a question regarding this report, pleasecontactyour referring physician directly. Professional Interpretation Provided By: [employer], Phone , These docum ents contain legally protected and confidential healthinformation intended only for the use of the individual or entity namedabove. If you are not the intended recipient, you are hereby notifiedthatany disclosure, copying, distribution, or other use of these documents isstrictly prohibited. If you have received this information in error,pleasenotify the sender immediately and arrange for the return or destructionofthese documents. Dictated on 12/05/12 1141 by Leonides Alvares MDscribed on 12/05/12 1458 by ITS IMPORTSign by Archie Alvares MD on 12/05/12 1459 Sign by: Archie Alvares MD [id number] RENAL FUNCTION PANEL Comments: PATIENT NOT FASTINGPERFORMED BY: [facility] [facility] [id number] Information: [id number] ([id number]) Albumin, Serum 4.5 g/dL (Normal) Range: 3.5-4.8 Phosphorus, Serum 3.1 mg/dL (Normal) Range: 2.5-4.5 Calcium, Serum 9.6 mg/dL (Normal) Range: 8.6-10.2 Carbon Dioxide, Total 22 mmol/L (Normal) Range: 19-28 Chloride, Serum 96 mmol/L (Abnormal) Range: 97-108 Potassium, Serum 3.4 mmol/L (Abnormal) Range: 3.5-5.2 Comments: Client Requested Flag Sodium, Serum 137 mmol/L (Normal) Range: 134-144 BUN/Creatinine Ratio 25 (Normal) Range: 11-26 eGFR If Africn Am 99 mL/min/1.73 (Normal) eGFR If NonAfricn Am 86 mL/min/1.73 (Normal) Creatinine, Serum 0.71 mg/dL (Normal) Range: 0.57-1.00 BUN 18 mg/dL (Normal) Range: 8-27 Glucose, Serum 131 mg/dL (Abnormal) Range: 65-99 27-Prf-156756:58 Nuclear Stress Test Radiology Report See Note (Normal) Comments: PHARMACOLOGIC MYOCARDIAL PERFUSION STRESS TEST HISTORY:This is a 72-year-old lady with a history of abnormal EKG andpalpitations. BASELINE INFORMATION:Resting EKG demonstrated normal sinus r hythm with a rate of 65 beats perminute. Normal intervals are noted. STRESS TEST:0.4 mg of regadenoson was infused per usual protocol with continuoussaline intravenous slush. Continuous EKG monitoring was perform ed. Theresting heart rate was 65 beats per minute with a maximum heart rate of85 beats per minute. At rest, there were no ST or T-wave changes notedto suggest abnormal flow reserve. At peak infusion, no ST or T-wavechanges were noted to suggest abnormal flow reserve. Resting bloodpressure was 178/82 with a final blood pressure of 170/80. No clinicalangina was noted. MYOCARDIAL PERFUSION PROTOCOL: 10.8 mCi of Sestamibi was injected at rest. 0.4 mg of regadenoson wasinfused per usual protocol. At peak infusion, 32.1 mCi of Sestamibi wasinjected. Stress images were obtained. Stress and rest imag es werereconstructed and compared in the short axis, vertical long andhorizontal long axes. Gated images were also obtained. PERFUSION SPECT ANALYSIS:Review of the images demonstrate normal uptake of t racer noted in allareas of the myocardium on the stress and resting images to a similarextent. No reversibility is noted to suggest ischemia or infarct. GATED SPECT ANALYSIS:The gated ejection fraction is noted to be 72%. CONCLUSION:1. Normal pharmacologic myocardial perfusion stress test.2. Preserved ejection fraction. Dictated on 11/30/12 1004 by Lonnie NUNEZ,CyrilTranscribed on 11/30/12 1458 by THIERRY MS,HOLLYSign by Lonnie NUNEZ,[place] on 12/02/12 1640 Sign by: Lonnie NUNEZ,Brennan 61-Cud-[id number]:24 Metabolic Panel, Basic Comments: PATIENT NOT FASTINGPERFORMED BY: [facility] [place] [id number] Information: [id number] ([id number]) Calcium, Serum 9.6 mg/dL (Normal) Range: 8.6-10.2 Carbon Dioxide, Total 22 mmol/L (Normal) Range: 19-28 Chloride, Serum 103 mmol/L (Normal) Range: 97-108 Potassium, Serum 4.4 mmol/L (Normal) Range: 3.5-5.2 Sodium, Serum 139 mmol/L (Normal) Range: 134-144 BUN/Creatinine Ratio 22 (Normal) Range: 11-26 eGFR If Africn Am 82 mL/min/1.73 (Normal) eGFR If NonAfricn Am 71 mL/min/1.73 (Normal) Creatinine, Serum 0.83 mg/dL (Normal) Range: 0.57-1.00 BUN 18 mg/dL (Normal) Range: 8-27 Glucose, Serum 96 mg/dL (Normal) Range: 65-99 58-Pui-690746:24 MAGNESIUM ([id number]) Comments: PATIENT NOT FASTINGPERFORMED BY: [facility] [place] [id number] Magnesium, Serum 2.1 mg/dL (Normal) Range: 1.6-2.6 :23 CBCMD ANC 7.2 3/uL (Normal) Range: 2.0-7.7 IG% 0.30 % (Normal) Range: 0.0-0.9 Comments: IG% - Immature Granulocytes (promyelocytes, myelocytes,metamyelocytes) >1.0% indicates that a LEFT SHIFT ispresent. B% 0.2 % (Normal) Range: 0-1 E% 0.9 % (Normal) Range: 0-5 M% 7.2 % (Normal) Range: 0-10 L% 14.9 % (Abnormal) Range: 19-41 N% 76.5 % (Abnormal) Range: 47-70 MPV 10.1 fL (Normal) Range: 6.2-12.0 PLT 186 K/mm3 (Normal) Range: 150-450 RDWSD 43.3 fL (Normal) Range: 35.1-43.9 RDWCV 13.6 % (Normal) Range: 11.6-14.6 MCHC 35.3 g/dL (Normal) Range: 32-36 MCH 31.1 pg (Normal) Range: 27.0-32.0 MCV 88.0 fL (Normal) Range: 81-99 HCT 40.2 % (Normal) Range: 37-47 HGB 14.2 g/dL (Normal) Range: 12.0-15.0 RBC 4.57 {M/mm3} (Normal) Range: 4.2-5.4 WBC 9.4 {k/mm3} (Normal) Range: 4.4-11.0 :23 CKMB CPKMB 2.0 ng/mL (Normal) Range: 0.0-5.0 Comments: CK-MB and RI Interpretation MB Relative IndexNon-AMI <or= 5 NAIndeterminate > 5 <or= 4AMI > 5 > 4 CPK 95 U/L (Normal) Range: 26-192 :23 CMP GAP 11 (Normal) Range: 5-15 CO2 27.0 mmol/L (Normal) Range: 21.0-32.0 CL 99 mmol/L (Normal) Range: 98-107 K 3.1 mmol/L (Abnormal) Range: 3.5-5.1 NA 137 mmol/L (Normal) Range: 136-145 BIT 0.80 mg/dL (Normal) Range: 0.00-1.00 ALT 57 U/L (Normal) Range: 12-78 ALK 82 U/L (Normal) Range: 50-136 AST 34 U/L (Normal) Range: 15-37 CA 9.2 mg/dL (Normal) Range: 8.5-10.1 AG 1.1 {RATIO} (Normal) Range: 0.9-2.4 GLOB 3.5 g/dL (Normal) Range: 2.7-4.2 ALB 3.8 g/dL (Normal) Range: 3.4-5.0 TPROT 7.3 g/dL (Normal) Range: 6.4-8.2 BC 23.3 {RATIO} (Abnormal) Range: 10-20 CREAT 0.9 mg/dL (Normal) Range: 0.6-1.0 BUN 21 mg/dL (Abnormal) Range: 7-18 GLU 152 mg/dL (Abnormal) Range: 70-110 Comments: Fasting Glucose result greater than or equal to 126 mg/dLsuggests DIABETES MELLITUS per A.D.A. criteria. :23 TROP < 0.02 ng/mL (Normal) Comments: TROPONIN-I EXPECTED VALUES <0.05 NEGATIVE0.06 - 0.59 AT RISK OF DC> OR = 0.60 SUGGEST DC 4-Nlz-[id number]:23 TSH 1.27 {uIU/mL} (Normal) Range: 0.358-3.74 74-Mkn-695320:58 BILAT SCRN DIGITAL & CAD Radiology Report See Note (Normal) Comments: MAMMOGRAPHY - BILATERAL SCREENING REASON FOR EXAM: Female, 71 years old. Routine annual screeningexamination. PERTINENT HISTORY: Non-contributory. TECHNIQUE: Digital examination. Med iolateral ob lique (MLO) andcraniocaudad (CC) views of both breasts were obtained. CAD: CAD wasperformed on this study. COMPARISON: Comparison is made with prior studies dated May 19nd October 26, 2006. FIN DINGS:The breast composition is heterogeneously dense. There are no dominant masses or suspicious calcifications. No other significant abnormalities are identified. There has been nosignificant change since the prior study. IMPRESSION:Stable bilateral screening mammogram. Yearly follow-up recommended. (A) ASSESSMENT CATEGORY:BIRADS Category 2: Benign finding(s). A letter regarding these resultsw ill be sent to the patient by the facility within 30 days. Approximately 10% of breast cancers are not detected by mammography. Anormal mammogram should not delay biopsy of a clinically suspiciousabnor mality. Signed:Archie Alvares M.D.June 08, 2012 at 2:30:29 PM [phone] Signed GP/GP If you are the referring physician and would like to consult with theradiologist who pro vided this interpretation, please contact Maurilio Miller at [phone]. If this radiologist is unavailable, youwill be directed to another radiologist to assist. If you are a patient with a q uestion regarding this report, pleasecontactyour referring physician directly. Professional Interpretation Provided By: [facility], Phone , These documents contain legally protected and confidential healthinformation intended only for the use of the individual or entity namedabove. If you are not the intended recipient, you are hereby notifiedthatany disclosure, copying, distribution, or other use of these documents isstrictly prohibited. If you have received this information in error,pleasenotify the sender immediately and arrange for the return or destructionofthese documents. Dictated on 06/08/12 1358 by Anny Alvares MDranscribed on 06/08/12 1436 by ITS IMPORTSign by Archie Alvares MD on 06/08/12 1437 Sign by: Archie Alvares MD 02-Xto-39207:57 LIPID PANEL ([id number]) Comments: PATIENT WAS FASTINGPERFORMED BY: [facility]Toulhk5[facility] [id number] Information: [id number] VLDL Cholesterol Kelsi VLDLCH mg/dL (Normal) Range: 5-40 Comments: The calculation for the VLDL cholesterol is not valid whentriglyceride level is >400 mg/dL.Triglyceride result indicated is too high for an accurate LDLcholesterol estimation. HDL Cholesterol 38 mg/dL (Abnormal) Comments: According to ATP-III Guidelines, HDL-C >59 mg/dL is considered anegative risk factor for CHD. Triglycerides 451 mg/dL (Abnormal) Range: 0-149 Cholesterol, Total 227 mg/dL (Abnormal) Range: 100-199 13-Aek-163469:05 WRIST,MIN 3 VIEWS Radiology Report See Note (Normal) Comments: PROCEDURE: X-RAY - LEFT WRIST REASON FOR EXAM: Female, 70 years old. Pain TECHNIQUE: Three views of the wrist were obtained. COMPARISON: None. FINDINGS:Normal visualized distal radi us and ulna. Normal distal radioulnararticulation. Normal radiocarpal articulation. Normal carpal bones. 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 Normal carpometacarpal articulation of the thumb. Normal second throughfifth carpometacarpal articulations. Normal visualized metacarpal bones. Mild osteopenia. There i s no demonstrated acute fracture. IMPRESSION:Mild degenerative changes and osteopenia. No acute fracture. Signed:Robert Whitman D.O.September 30, 2011 at 11:24:06 AM EDTElectronically Signed DS/NATALIE Profession al Interpretation Provided By: [facility], , To consult with a radiologist regarding this report, please call our [id number] line @ [phone] Dictated on 09/29/11 1133 by Janette Sykes DOscribed on 10/01/11 1001 by ITS IMPORTSign by Moses Sykes DO on 10/01/11 1002 Sign by: Moses Sykes DO 57-Wyu-242241:47 MICROALBUMIN: CREATININE RATIO Comments: PATIENT WAS FASTINGPERFORMED BY: [facility] RehabilitationLojaxj7614 [facility] [id number] ([id number]) AND ([id number]) Microalb/Creat Ratio 2.6 {mg/g_creat} (Normal) Range: 0.0-30.0 Microalbumin, Urine 3.0 ug/mL (Normal) Range: 0.0-17.0 Creatinine, Urine 115.1 mg/dL (Normal) Range: 15.0-278.0 :47 METABOLIC PANEL, COMPREHENSIVE Comments: PATIENT WAS FASTINGPERFORMED BY: [employer] [id number] ([id number]) ALT (SGPT) 46 [iU]/L (Abnormal) Range: 0-40 AST (SGOT) 37 [iU]/L (Normal) Range: 0-40 Alkaline Phosphatase, S 95 [iU]/L (Normal) Range: 25-165 Bilirubin, Total 0.9 mg/dL (Normal) Range: 0.0-1.2 A/G Ratio 1.8 (Normal) Range: 1.1-2.5 Globulin, Total 2.6 g/dL (Normal) Range: 1.5-4.5 Albumin, Serum 4.7 g/dL (Normal) Range: 3.6-4.8 Protein, Total, Serum 7.3 g/dL (Normal) Range: 6.0-8.5 Calcium, Serum 9.8 mg/dL (Normal) Range: 8.6-10.2 Carbon Dioxide, Total 22 mmol/L (Normal) Range: 20-32 Chloride, Serum 100 mmol/L (Normal) Range: 97-108 Potassium, Serum 3.8 mmol/L (Normal) Range: 3.5-5.2 Sodium, Serum 142 mmol/L (Normal) Range: 134-144 BUN/Creatinine Ratio 20 (Normal) Range: 11-26 eGFR If Africn Am 73 mL/min/1.73 (Normal) eGFR If NonAfricn Am 63 mL/min/1.73 (Normal) Creatinine, Serum 0.93 mg/dL (Normal) Range: 0.57-1.00 BUN 19 mg/dL (Normal) Range: 8-27 Glucose, Serum 101 mg/dL (Abnormal) Range: 65-99 :47 LIPID PANEL ([id number]) Comments: PATIENT WAS FASTINGPERFORMED BY: [facility] [id number] VLDL Cholesterol Kelsi VLDLCH mg/dL (Normal) Range: 5-40 Comments: The calculation for the VLDL cholesterol is not valid whentriglyceride level is >400 mg/dL.Triglyceride result indicated is too high for an accurate LDLcholesterol estimation. HDL Cholesterol 28 mg/dL (Abnormal) Comments: According to ATP-III Guidelines, HDL-C >59 mg/dL is considered anegative risk factor for CHD. Triglycerides 615 mg/dL (Abnormal) Range: 0-149 Cholesterol, Total 195 mg/dL (Normal) Range: 100-199 04-Ogy-267388:47 CBC WITH MANUAL DIFF Comments: PATIENT WAS FASTINGPERFORMED BY: [facility] RehabilitationErnsdt2412 [facility] [id number] Information: [id number] (95202) Immature Grans (Abs) 0.0 {x10E3/uL} (Normal) Range: 0.0-0.1 Immature Granulocytes 0 % (Normal) Range: 0-2 Baso (Absolute) 0.0 {x10E3/uL} (Normal) Range: 0.0-0.2 Eos (Absolute) 0.2 {x10E3/uL} (Normal) Range: 0.0-0.4 Monocytes(Absolute) 0.4 {x10E3/uL} (Normal) Range: 0.1-1.0 Lymphs (Absolute) 1.7 {x10E3/uL} (Normal) Range: 0.7-4.5 Neutrophils (Absolute) 3.3 {x10E3/uL} (Normal) Range: 1.8-7.8 Basos 0 % (Normal) Range: 0-3 Eos 3 % (Normal) Range: 0-7 Monocytes 7 % (Normal) Range: 4-13 Lymphs 30 % (Normal) Range: 14-46 Neutrophils 60 % (Normal) Range: 40-74 Platelets 184 {x10E3/uL} (Normal) Range: 140-415 RDW 14.5 % (Normal) Range: 12.3-15.4 Comments: Please note reference interval change MCHC 34.1 g/dL (Normal) Range: 31.5-35.7 Comments: Please note reference interval change MCH 30.4 pg (Normal) Range: 26.6-33.0 Comments: Please note reference interval change MCV 89 fL (Normal) Range: 79-97 Comments: Please note reference interval change Hematocrit 42.2 % (Normal) Range: 34.0-46.6 Comments: Please note reference interval change Hemoglobin 14.4 g/dL (Normal) Range: 11.1-15.9 Comments: Please note reference interval change RBC 4.74 {x10E6/uL} (Normal) Range: 3.77-5.28 Comments: Please note reference interval change WBC 5.6 {x10E3/uL} (Normal) Range: 4.0-10.5 08-Clt-617448:01 BILAT SCRN DIGITAL & CAD Radiology Report See Note (Normal) Comments: MAMMOGRAPHY - BILATERAL SCREENING REASON FOR EXAM: Female, 70 years old. Routine annual screeningexamination. PERTINENT HISTORY: Non-contributory. TECHNIQUE: Digital examination. Med iolateral ob lique (MLO) andcraniocaudad (CC) views of both breasts were obtained. CAD: CAD wasperformed on this study. COMPARISON: Comparison is made with prior study dated October 26, 2006. FINDINGS:The breast comp osition is heterogeneously dense. There are no masses or suspicious microcalcifications. No other significant abnormalities are identified. There has been nosignificant change since the prior study. IM PRESSION:Normal bilateral screening mammogram. One year follow-up recommended. (A) ASSESSMENT CATEGORY:BIRADS Category 2: Benign finding(s). A letter regarding these resultswill be sent to the patien t by the facility within 30 days. Approximately 10% of breast cancers are not detected by mammography. Anormal mammogram should not delay biopsy of a clinically suspiciousabnormality. To consult with a radiologist regarding this report, please call our [id number] line @ Dictated on 05/19/11 1229 by Leonides Alvares MDscribed on 05/19/11 1407 by ITS IMPORTSign by Archie Alvares MD on 05/19/11 1408 Sign by: Archie Alvares MD 09-Bjo-096102:11 LIPID PANEL ([id number]) Comments: now and in six months (approximately); PERFORMED BY: [facility] [id number] HDL Cholesterol 32 mg/dL (Abnormal) Comments: According to ATP-III Guidelines, HDL-C >59 mg/dL is considered anegative risk factor for CHD. VLDL Cholesterol Kelsi VLDLCH mg/dL (Normal) Range: 5-40 Comments: The calculation for the VLDL cholesterol is not valid whentriglyceride level is >400 mg/dL.Triglyceride result indicated is too high for an accurate LDLcholesterol estimation. Cholesterol, Total 198 mg/dL (Normal) Range: 100-199 Triglycerides 531 mg/dL (Abnormal) Range: 0-149 :11 METABOLIC PANEL, COMPREHENSIVE Comments: in six months (approximately); PERFORMED BY: [facility] [id number] ([id number]) ALT (SGPT) 57 [iU]/L (Abnormal) Range: 0-40 AST (SGOT) 44 [iU]/L (Abnormal) Range: 0-40 Alkaline Phosphatase, S 103 [iU]/L (Normal) Range: 25-165 Bilirubin, Total 0.8 mg/dL (Normal) Range: 0.0-1.2 A/G Ratio 1.7 (Normal) Range: 1.1-2.5 Globulin, Total 2.7 g/dL (Normal) Range: 1.5-4.5 Albumin, Serum 4.6 g/dL (Normal) Range: 3.6-4.8 Protein, Total, Serum 7.3 g/dL (Normal) Range: 6.0-8.5 Calcium, Serum 9.6 mg/dL (Normal) Range: 8.6-10.2 Carbon Dioxide, Total 23 mmol/L (Normal) Range: 20-32 Chloride, Serum 100 mmol/L (Normal) Range: 97-108 Potassium, Serum 3.6 mmol/L (Normal) Range: 3.5-5.2 Sodium, Serum 138 mmol/L (Normal) Range: 135-145 Comments: Effective April 06, 2011 Sodium, Serum reference interval will be changing to: 134 - 144 mmol/L BUN/Creatinine Ratio 25 (Normal) Range: 11-26 eGFR If Africn Am 86 mL/min/1.73 (Normal) Comments: Note: A persistent eGFR <60 mL/min/1.73 m2 (3 months or more) mayindicate chronic kidney disease. An eGFR >59 mL/min/1.73 m2 with anelevated urine protein also may indicate chronic kidney disease.Calculated using CKD-EPI formula. eGFR If NonAfricn Am 74 mL/min/1.73 (Normal) Creatinine, Serum 0.81 mg/dL (Normal) Range: 0.57-1.00 BUN 20 mg/dL (Normal) Range: 8-27 Glucose, Serum 102 mg/dL (Abnormal) Range: 65-99 1-Vra-292725:51 CHEST, PA AND LATERAL Radiology Report See Note (Normal) Comments: CLINICAL:Female, 69 years old. The patient presents with history of wheezing,cough and shortness of breath. X-RAY EXAMINATION - CHEST TECHNIQUE:PA and lateral views of the chest. COMPARISO N:Comparison is made with prior study dated May 18, 2010. FINDINGS: The lungs are expanded. There is no demonstrated pulmonary parenchymalabnormality. There is no demonstrated pleural abnormality. There is francine rderline cardiomegaly. Normal mediastinum and glenys. Normal visualized pulmonary arteries. There is atherosclerotictortuosityof the aortic arch and descending thoracic aorta. There are diffuse degenerat puja changes of the visualized thoracic spine. IMPRESSION:Borderline cardiomegaly.Interval stability as compared to the above noted prior comparison study. Dictated on 07/21/10 1253 by Ortiz Alvares MD brieleTranscribed on 07/21/101934 by ITS IMPORTSign by Archie Alvares MD on 07/21/101935 Sign by: Archie Alvares MD 2-Ehv-211574:14 Urinalysis, Office ([id number]) UA - BILIRUBIN Negative (Normal) UA - BLOOD Non Hemolyzed Trace (Normal) UA - GLUCOSE Negative (Normal) UA - KETONES Negative mg/dL (Normal) UA - LEUKOCYTE ESTERASE Trace (Normal) UA - NITRITE Negative (Normal) UA - PH 7.0 (Normal) UA - PROTEIN Negative mg/dL (Normal) UA - SPECIFIC GRAVITY 1.020 (Normal) URINE UROBILINGN SILVESTRE 2 mg/dL (Normal) TIMED :48 KATHI 86 U/L (Normal) Comments: AD ON MG AND RF Range: 25-115 :48 BC No growth in 5 days. (Normal) :48 CBCD,SMEAR DIFF PLT EST SeeNote (Normal) Comments: Result: ADEQUATE RED CELL MORPH SeeNote {NORMAL} (Normal) Comments: Result: NORM C+C EOS 1 % (Normal) Range: 0-5 LYMPH 24 % (Normal) Range: 19-41 MONOCYTE 6 % (Normal) Range: 0-10 SEGS 69 % (Normal) Range: 47-70 CELLS COUNTED 100 (Normal) ABSOLUTE NEUT 4.8 3/uL (Normal) Range: 2.0-7.7 PLT 258 K/mm3 (Normal) Range: 150-450 MCH 30.9 pg (Normal) Range: 27.0-32.0 MCHC 35.5 g/dL (Normal) Range: 32-36 RDW 14.5 % (Normal) Range: 11.6-14.6 MCV 87.0 fL (Normal) Range: 81-99 HCT 30.5 % (Abnormal) Range: 37-47 HGB 10.9 g/dL (Abnormal) Range: 12.0-16.0 RBC 3.51 {M/mm3} (Abnormal) Range: 4.2-5.4 WBC 6.9 K/mm3 (Normal) Range: 4.4-11.0 :48 COMP METABOLIC Comments: AD ON MG AND RF GAP 13 (Normal) Range: 5-15 CO2 30.0 mmol/L (Normal) Range: 21.0-32.0 CL 94 mmol/L (Abnormal) Range: 98-107 K 2.6 mmol/L (Abnormal) Range: 3.5-5.1 Comments: RESULTS CALLED TO GLENDY AT DR TRONCOSO'S005/22/10 MAIA JERRY.REPORT READ BACK BY SAME . NA 137 mmol/L (Normal) Range: 136-145 T BILI 0.40 mg/dL (Normal) Range: 0.00-1.00 ALK P 128 U/L (Normal) Range: 50-136 ALT 86 U/L (Abnormal) Range: 12-78 A/G 0.6 {RATIO} (Abnormal) Range: 0.9-2.4 AST 55 U/L (Abnormal) Range: 15-37 CA 9.2 mg/dL (Normal) Range: 8.5-10.1 GLOB 4.3 g/dL (Abnormal) Range: 2.7-4.2 ALB 2.6 g/dL (Abnormal) Range: 3.4-5.0 BUN/CRE 13.3 {RATIO} (Normal) Range: 10-20 T PROT 6.9 g/dL (Normal) Range: 6.4-8.2 CREAT,SERUM 1.2 mg/dL (Abnormal) Range: 0.6-1.0 EST GFR 47 mL/min (Abnormal) EST GFR - AA 57 mL/min (Abnormal) BUN 16 mg/dL (Normal) Range: 7-18 GLU 147 mg/dL (Abnormal) Range: 70-110 Comments: Fasting Glucose result greater than or equal to 126 mg/dL suggests DIABETES MELLITUS per A.D.A. criteria. :48 CULTURE, URINE URINE CULTURE See Note {CFU/mL} Comments: COLONY COUNT >100,000 ORGANISM 1: PRESUMPTIVE E. COLI PRESUMPTIVE E. COLI: REACTION AMIKACIN s <=2 S AMPICILLIN G (Normal) N $$ >=32 R AMPICILLIN/SULBACTAM $$ 8 S CEFAZOLIN $ >=64 R CEFEPIME $$ 8 R CEFOXITIN $ 16 I CEFTAZIDIME (NF) $ 16 R CEFTRIAXONE $ >=64 R CIPROFLOXACIN GN (IV/NF) $$ >=4 R EXTEND.SPECTRUM BETA LACTAMASE Pos + ERTAPENIM $$ <=0.5 S GENTAMICIN GN $ >=16 R IMIPENEM $ $$ <=1 S LEVOFLOXACIN $ >=8 R NITROFURANTOIN $ <=16 S TRIMETHOPRIM/SULFAMETHOXAZO $ >=320 R EB-VCA [id number] < 0.2 {AI} Range: 0.0-0.8 :48 (Normal) Comments: Negative <0.9 Equivocal 0.9 - 1.0 Positive >1.0Performed at: [facility] [id number] Director: Mara Wilson MD, Phone: [phone] :48 ESR SED RATE 113 mm/h (Abnormal) Range: 0-30 :48 HEP-ABC [id number] HB CORE [id number] SeeNote (Normal) Comments: Result: Negative HEBSAB 6395 0.60 (Normal) Range: 0.00-0.99 Comments: Status of Immunity Anti-HBs Level Inconsistent with Immunity 0.00 - 0.99 Consistent with Immunity >0.99 . An Index Value of 1.00 is equivalent to 10 mIU/mL. However the magnitude of the Index Value is not indicative of the total amount of antibody present. HEP B CORE,TOT SeeNote (Normal) Comments: Result: Negative HVC Ab 0.2 (Normal) Range: 0.0-0.9 Comments: INFCE Result Units: s/co ratioNegativeNot infected with HCV, unless recent infection issuspected or other evidence exists to indicate HCVinfection. RIBA RESULT <TEST NOT PERFORMED> (Normal) HB SURF AG 6510 SeeNote (Normal) Comments: Result: Negative HEP A AB,T.6726 SeeNote (Normal) Comments: Result: Negative HEP A IgM 6734 SeeNote (Normal) Comments: Result: Negative :48 LIPASE 284 U/L (Normal) Comments: AD ON MG AND RF Range: 70-290 Comments: Please note:LIPASE revised reference range effective 09. :48 MG 1.9 mg/dL (Normal) Comments: AD ON MG AND RF Range: 1.5-2.2 :48 RHEUMATOID FAC 5090.0 {IU/mL} Comments: AD ON MG AND RF (Abnormal) :20 URINE RASHAD CULTURE-SILVESTRE COL Comments: PATIENT NOT FASTINGPERFORMED BY: [facility] [id number] [facility] [id number] Information: SRC: [id number] COUNT ([id number]) Antimicrobial MIHEAD (Normal) Comments: S = Susceptible; I = Intermediate; R = Resistant P = Positive; N = Negative MICS are expressed in micrograms per mL Antibiotic RSLT#1 RSLT#2 Susceptibility RSLT#3 RSLT#4Amikacin SAmoxicillin/Clavulanic Acid SAmpicillin RCefazolin RCefepime RCefoxitin ICeftriaxone RCiprofloxacin RESBL PErtapenem SGentamicin RImipenem S Levofloxacin RNitrofurantoin STobramycin ITrimethoprim/Sulfa R Result 1 Escherichia coli Comments: Greater than 100,000 colony forming units per mLThis organism was confirmed as an extended-spectrum beta-lactamase(ESBL) laborer road. Despite apparent in vitro susceptibility topenicillins and cephalospor (Normal) ins, this organism may be clinicallyresistant to therapy with these agents and, per the CLSI (formerlyNVCLS), we have changed their results to indicate this. Urine Final report (Normal) Culture,Comprehensive 3-Mii-462780:44 Urinalysis, Office (12066) UA - BILIRUBIN Negative (Normal) UA - BLOOD Hemolyzed Moderate (Normal) UA - GLUCOSE Negative (Normal) UA - KETONES Negative mg/dL (Normal) UA - LEUKOCYTE ESTERASE Large (Normal) UA - NITRITE Positive (Normal) UA - PH 6.5 (Normal) UA - PROTEIN 100 mg/dL (Normal) UA - SPECIFIC GRAVITY 1.015 (Normal) URINE UROBILINGN SILVESTRE TIMED 2 mg/dL (Normal) 22-May-20100:00 ABDOMEN/PELVIS WITH CONTRAST Radiology Report See Note (Normal) Comments: CLINICAL:Female, 69 years old. Abdominal pain and bloating. Elevated liverenzymes. CT ABDOMEN AND PELVIS WITH CONTRAST TECHNIQUE:Transaxial images were obtained from the dome of the diaphrag m to thesymp hysis pubis with oral contrast 100 ml of Isovue 300 contrast wasadministered. COMPARISON:October 10, 2004 FINDINGS:The visualized lung bases are unremarkable. The liver is mildly enlarged but homogeneous. No masses are seen. Normalgallbladder and extrahepatic biliary system. Normal enhanced spleen.Normalpancreas. Normal bilateral adrenal glands. Normal size of the right kidney. There is a 4 mm hypodensit y which is toosmall to adequately evaluate. There are no right renal calculi. There isnoright hydronephrosis. Normal visualized right ureter. Normal size of the left kidney. The left kidney is mildly ma lrotated withthe renal pelvis oriented anteriorly. Best seen on the delayed views,thereare multiple hypodensities in the left kidney. These may be multipleinfarcts or neoplasm, either benign or malignan t. MRI is suggested. Thereare no left renal calculi. There is no left hydronephrosis. Normalvisualized left ureter. There is a small hiatal hernia. Normal small intestine. There is colonicdiverticulosis . The appendix is not identified.The cecum is low in the pelvis projecting against the sigmoid colonmakingit impossible to identify the appendix.There is no demonstrated peritoneal fluid. Normal abdomin al aorta. Normal inferior vena cava. Normalretroperitoneum. Normal urinary bladder. The cervix appears larger than on the previousexamination. There appears to be a small amount of air at the junction o fvagina and cervix. Air in the proximal vagina is more likely. For furtherevaluation of the uterus an ultrasound is suggested. Ovaries are notidentified. Normal abdominal wall. Normal osseous structures . IMPRESSION:Multiple hypodensities in the left kidney,best seen on delayed images.Thisfinding may represent multiple infarcts or neoplasm, either benign ormalignant. MRI is recommended. There is a smal l hiatal hernia.There is colonic diverticulosis.The cervix appears prominent in size. There is air at the junction of thecervix and vagina.Probably proximal vagina. Pelvic ultrasound isrecommended. D ictated on 05/22/10 1418 by JOVANY ARAMBULATranscribed on 05/22/10 1537 by ITS IMPORTSign by JOVANY ARAMBULA on 05/22/10 1538 Sign by: JOVANY ARAMBULA 03-Sxs-929207:24 Influenza A, H1N1, RT PCR Comments: PERFORMED BY: SHANNON [employer] [id number] BY: ILIR LabCoKessler Institute for RehabilitationAylbro8585 [facility] [id number] Information: SRC:NL Subtype Novel H1N1 by Negative (Normal) PCR Type Influenza A by Negative (Normal) PCR Viral FLUABN (Normal) Comments: PERFORMED BY: [facility]serveJer[facility] CenterNnvivbnpdy4793 [facility] [id number] BY: [facility]6370 [facility] [id number] Culture,Rapid,Influenz Comments: Negative:No Influenza A or B detected. a 01-Vgn-631051:25 Influenza A Ag (06383) Influenza A Ag negative (Normal) 24-Bnm-017218:55 Urinalysis, Office (24185) UA - BILIRUBIN Negative (Normal) UA - BLOOD Negative (Normal) UA - GLUCOSE Trace (Normal) Comments: 100mg UA - KETONES Negative mg/dL (Normal) UA - LEUKOCYTE ESTERASE Small (Normal) UA - NITRITE Negative (Normal) UA - PH 7.0 (Normal) UA - PROTEIN Negative mg/dL (Normal) UA - SPECIFIC GRAVITY 1.015 (Normal) URINE UROBILINGN SILVESTRE TIMED 2 mg/dL (Normal) 4-Mbc-440893:04 CBC with manual diff Comments: PATIENT NOT FASTINGPERFORMED BY: [place]serve[place] [id number] [facility] [id number] Information: [id number] (22712) Immature Grans (Abs) 0.0 {x10E3/uL} (Normal) Range: 0.0-0.1 Baso (Absolute) 0.0 {x10E3/uL} (Normal) Range: 0.0-0.2 Eos (Absolute) 0.1 {x10E3/uL} (Normal) Range: 0.0-0.4 Immature Granulocytes 0 % (Normal) Range: 0-1 Monocytes(Absolute) 0.7 {x10E3/uL} (Normal) Range: 0.1-1.0 Lymphs (Absolute) 1.9 {x10E3/uL} (Normal) Range: 0.7-4.5 Neutrophils (Absolute) 3.6 {x10E3/uL} (Normal) Range: 1.8-7.8 Basos 1 % (Normal) Range: 0-3 Eos 2 % (Normal) Range: 0-7 Monocytes 11 % (Normal) Range: 4-13 Lymphs 30 % (Normal) Range: 14-46 Neutrophils 56 % (Normal) Range: 40-74 MCHC 33.9 g/dL (Normal) Range: 32.0-36.0 Platelets 198 {x10E3/uL} (Normal) Range: 140-415 RDW 13.5 % (Normal) Range: 11.7-15.0 MCH 29.8 pg (Normal) Range: 27.0-34.0 MCV 88 fL (Normal) Range: 80-98 Hematocrit 38.4 % (Normal) Range: 34.0-44.0 Hemoglobin 13.0 g/dL (Normal) Range: 11.5-15.0 RBC 4.36 {x10E6/uL} (Normal) Range: 3.80-5.10 WBC 6.4 {x10E3/uL} (Normal) Range: 4.0-10.5 8-Bfz-493434:04 Metabolic Panel, Comprehensive Comments: PATIENT NOT FASTINGPERFORMED BY: LabCoKessler Institute for RehabilitationPjrfno1249 [facility] [id number] (11951) ALT (SGPT) 78 [iU]/L (Abnormal) Range: 0-40 AST (SGOT) 28 [iU]/L (Normal) Range: 0-40 A/G Ratio 1.5 (Normal) Range: 1.1-2.5 Alkaline Phosphatase, S 125 [iU]/L (Normal) Range: 25-165 Bilirubin, Total 0.7 mg/dL (Normal) Range: 0.0-1.2 Albumin, Serum 4.0 g/dL (Normal) Range: 3.6-4.8 Globulin, Total 2.6 g/dL (Normal) Range: 1.5-4.5 Protein, Total, Serum 6.6 g/dL (Normal) Range: 6.0-8.5 Calcium, Serum 9.2 mg/dL (Normal) Range: 8.6-10.2 Carbon Dioxide, Total 28 mmol/L (Normal) Range: 20-32 Chloride, Serum 99 mmol/L (Normal) Range: 97-108 BUN/Creatinine Ratio 20 (Normal) Range: 8-27 eGFR AfricanAmerican >59 mL/min/1.73 Comments: Note: Persistent reduction for 3 months or more in an eGFR<60 mL/min/1.73 m2 defines CKD. Patients with eGFR values>/=60 mL/min/1.73 m2 may also have CKD if evidence of persistentproteinuria is (Normal) present. Additional information may be found [email or web address]. Potassium, Serum 3.1 mmol/L (Abnormal) Range: 3.5-5.2 Comments: Client Requested Flag Sodium, Serum 139 mmol/L (Normal) Range: 135-145 Creatinine, Serum 0.94 mg/dL (Normal) Range: 0.57-1.00 eGFR 59 mL/min/1.73 (Abnormal) BUN 19 mg/dL (Normal) Range: 5-26 Glucose, Serum 105 mg/dL (Abnormal) Range: 65-99 05-Lcz-800096:07 BRAIN/HEAD WITHOUT CONTRAST Radiology Report See Note (Normal) Comments: CLINICAL:Female, 69 years old. Headache started last night. Fever/cold symptoms. CT BRAIN WITHOUT CONTRAST TECHNIQUE:Transaxial CT imaging of the brain was performed without administrationofintravenous contrast material. COMPARISON:None. FINDINGS:Normal size of the ventricles and extra-axial spaces for the patient'massimo.Normal white matter tracts of the supratentorial brain. Normal basal ganglia. Melissa l bilateral thalami. There is no demonstrated vascular abnormality. There is no demonstrated extra-axial hemorrhage. There is nodemonstratedintraparenchymal hemorrhage. Normal brainstem. Normal cerebell um. Normal basal cisterns. Normal soft tissue structures. Normal calvarium. Normal sella turcica. Normal skull base. Normal visualized orbital structures The frontal sinuses are very hypoplastic there i s minimal density in thesingle air cell of the left frontal sinus. There is increased density inthe ethmoid sinuses more marked on the left than the right. There issignificant increased density in the m axillary sinuses and there areair-fluid levels in both maxillary sinuses. There is moderate increaseddensity in the right sphenoid sinus. The findings would be compatiblewithacute and chronic sinusitis. IMPRESSION:Normal unenhanced CT scan of the brain. Extensive acute and chronic sinusitis. There are air-fluid levels in themaxillary sinuses. Dictated on 03/10/101225 by JOVANY ARAMBULATranscribed o n 03/10/101225 by Lisa LOVE by JOVANY ARAMBULA on 03/11/10 0859 Sign by: JOVANY ARAMBULA 33-Ctc-77578:00 CHEST, PA AND LATERAL Radiology Report See Note (Normal) Comments: CLINICAL:Female, 69 years old. Upper respiratory infection for one month. X-RAY EXAMINATION - CHEST TECHNIQUE:PA and lateral views of the chest. COMPARISON:Chest films of May 28 1999 and. FINDINGS : The lungs are expanded. There is a new small infiltrate or atelectasisinleft lower lobe. Stable calcifications in the right apex. There is nodemonstrated pleural abnormality. The heart is normal in size and morphology. Normal mediastinum and glenys. Normal visualized pulmonary arteries. There is atheroscleroticcalcification of the aortic arch with tortuosity. Normal osseous structures. Postsurgic al metallic clip is again seenoverlying the left kidney IMPRESSION:New small pneumonia or atelectasis left lower lobe. Dictated on 03/10/101341 by BERTO STYLESTranscribed on 03/10/101341 by SHAR LOVESign by BERTO STYLES on 03/12/10637 Sign by: BERTO SYTLES 54-Rgf-04213:00 RIBS UNIL 2V NO CXR Radiology Report See Note (Normal) Comments: CLINICAL:69-year-old female with right upper anterior rib pain after fall. X-RAY EXAMINATION: UNILATERAL RIBS RIGHT TECHNIQUE:Four views of the ribs. COMPARISON:Chest x-ray of May time at 2009 . FINDINGS:Normal visualized ribs. There is no demonstrated acute fracture. Normal visualized pleura. Calcification is again noted the right lung apex. No pneumothorax. Normal visualized thoracic spin e. There is no demonstrated soft tissue swelling. IMPRESSION:Normal x-ray examination of the unilateral ribs. Dictated on 03/10/101341 by BERTO STYLESTranscribed on 03/10/101341 by INTERFACESHAR Sign by BERTO STYLES on 03/12/10637 Sign by: BERTO STYLES 6-Cxr-754860:04 Lower Respiratory Culture Comments: PERFORMED BY: [facility] Kwqobl1676 [facility] [id number] Information: SRC:SP Result 1 RRF (Normal) Comments: Routine respiratory ermelinda Lower Respiratory Culture Final report (Normal) 43-Via-356247:29 ETH TISS P-ETH (Normal) Comments: OPERATIONSeptoplasty, bilateral total ethmoidectomy, bilateral maxillary antrostomyPRE-OPERATIVE DIAGNOSISChronic sinusitisTISSUE SUBMITTED1 - Right ethmoid contents, 2 - Left ethmoid contents, 3 - Sept alMICROSCOPIC DIAGNOSISA. Right ethmoid contents, excision:Consistent with chronic sinusitis.Fragments of bone with no significant pathologic change.B. Left ethmoid contents, excision:Consistent with chronic sinusitis.Fragments of bone with no significant pathologic change.C. Nasal septal cartilage, septoplasty:Fragments of hyaline cartilage and bone with no significant pathologic change.AM: 08/18 10/26GROSS DESCRIPTIONA - Received in formalin labeled with patient name and number and designated rightethmoid are multiple fragments of dumont soft tissue mixed with bone measuring in aggregate 3x 2.5 x 0.2 cm. The specimen is totally submitted in one cassette after decalcification.B - Received in formalin labeled with patient name and number and designated left ethmoidare multiple fragments of dumont soft tissue mixed with bone measuring in aggregate 2 x 1 x0.2 cm. The specimen is totally submitted in one cassette after decalcification.C - Received in formalin labeled with patient name and number and designated septal aremultiple fragments of cartilage and bone measuring in aggregate 3 x 2.5 x 0.2 cm. Thespecimen is totally submitted in one cassette after decalcification. / SJ: 09/10/09 TC:3REPORT SIGNED: SCOOTER SNYDER 09/12/0929-Aug-200944-Cex-967707:05 BMP BUN/CRE 20.0 {RATIO} (Normal) Range: 10-20 CA 9.2 mg/dL (Normal) Range: 8.5-10.1 CL 98 mmol/L (Normal) Range: 98-107 CO2 28.0 mmol/L (Normal) Range: 21.0-32.0 EST GFR 76 mL/min (Normal) EST GFR - AA 92 mL/min (Normal) GAP 8 (Normal) Range: 5-15 K 3.4 mmol/L (Abnormal) Range: 3.5-5.1 NA 134 mmol/L (Abnormal) Range: 136-145 BUN 16 mg/dL (Normal) Range: 7-18 CREAT,SERUM 0.8 mg/dL (Normal) Range: 0.6-1.0 GLU 139 mg/dL (Abnormal) Range: 70-110 Comments: Fasting Glucose result greater than or equal to 126 mg/dLsuggests DIABETES MELLITUS per A.D.A. criteria. 55-Rtn-787338:05 CBC MPV 7.1 fL (Normal) Range: 6.5-12.0 HCT 39.7 % (Normal) Range: 37-47 HGB 14.0 g/dL (Normal) Range: 12.0-16.0 MCH 31.3 pg (Normal) Range: 27.0-32.0 MCHC 35.3 g/dL (Normal) Range: 32-36 MCV 88.6 fL (Normal) Range: 81-99 PLT 232 K/mm3 (Normal) Range: 150-450 RBC 4.48 {M/mm3} (Normal) Range: 4.2-5.4 RDW 13.8 % (Normal) Range: 11.6-14.6 WBC 8.1 K/mm3 (Normal) Range: 4.4-11.0 7-Lxu-472657:33 MICROALBUMIN: CREATININE RATIO Comments: PATIENT WAS FASTINGPERFORMED BY: LabCoKessler Institute for RehabilitationLtwpzw9137 [facility] [id number] (90685) AND (38638) Microalb/Creat Ratio 3.2 {mg/g_creat} (Normal) Range: 0.0-30.0 Creatinine, Urine 37.1 mg/dL (Normal) Range: 15.0-278.0 Microalbumin, Urine 1.2 ug/mL (Normal) Range: 0.0-17.0 6-Ndx-771420:33 METABOLIC PANEL, COMPREHENSIVE Comments: PATIENT WAS FASTINGPERFORMED BY: [facility]CoK[facility] Institute for RehabilitationHicbgx5100 [facility] [id number] (07574) ALT (SGPT) 33 [iU]/L (Normal) Range: 0-40 A/G Ratio 1.3 (Normal) Range: 1.1-2.5 Alkaline Phosphatase, S 80 [iU]/L (Normal) Range: 25-165 AST (SGOT) 35 [iU]/L (Normal) Range: 0-40 Bilirubin, Total 0.9 mg/dL (Normal) Range: 0.1-1.2 Globulin, Total 3.3 g/dL (Normal) Range: 1.5-4.5 Albumin, Serum 4.4 g/dL (Normal) Range: 3.6-4.8 Calcium, Serum 10.2 mg/dL (Normal) Range: 8.6-10.2 Carbon Dioxide, Total 23 mmol/L (Normal) Range: 20-32 Protein, Total, Serum 7.7 g/dL (Normal) Range: 6.0-8.5 BUN/Creatinine Ratio 27 (Normal) Range: 8-27 Chloride, Serum 100 mmol/L (Normal) Range: 97-108 Potassium, Serum 3.9 mmol/L (Normal) Range: 3.5-5.2 Sodium, Serum 138 mmol/L (Normal) Range: 135-145 eGFR AfricanAmerican >59 mL/min/1.73 Comments: Note: Persistent reduction for 3 months or more in an eGFR<60 mL/min/1.73 m2 defines CKD. Patients with eGFR values>/=60 mL/min/1.73 m2 may also have CKD if evidence of persistentproteinuria is (Normal) present. Additional information may be found [email or web address]. BUN 22 mg/dL (Normal) Range: 5-26 Creatinine, Serum 0.82 mg/dL (Normal) Range: 0.57-1.00 eGFR >59 mL/min/1.73 (Normal) Glucose, Serum 100 mg/dL (Abnormal) Range: 65-99 :33 LIPID PANEL (71870) Comments: PATIENT WAS FASTINGPERFORMED BY: [facility] Mtgkif3986 [facility] [id number] LDL Cholesterol Calc 142 mg/dL (Abnormal) Range: 0-99 LDL/HDL Ratio 3.5 {ratio_units} (Abnormal) Range: 0.0-3.2 VLDL Cholesterol Kelsi 57 mg/dL (Abnormal) Range: 5-40 Cholesterol, Total 240 mg/dL (Abnormal) Range: 100-199 HDL Cholesterol 41 mg/dL (Normal) Comments: According to ATP-III Guidelines, HDL-C >59 mg/dL is considered anegative risk factor for CHD. Triglycerides 284 mg/dL (Abnormal) Range: 0-149 9-Utp-481129:33 CBC WITH MANUAL DIFF Comments: PATIENT WAS FASTINGPERFORMED BY: [facility]6370 [facility] [id number] Information: [id number] (02326) Baso (Absolute) 0.0 {x10E3/uL} (Normal) Range: 0.0-0.2 Eos (Absolute) 0.1 {x10E3/uL} (Normal) Range: 0.0-0.4 Lymphs (Absolute) 1.6 {x10E3/uL} (Normal) Range: 0.7-4.5 Monocytes(Absolute) 0.5 {x10E3/uL} (Normal) Range: 0.1-1.0 Basos 0 % (Normal) Range: 0-3 Eos 2 % (Normal) Range: 0-7 Neutrophils (Absolute) 5.0 {x10E3/uL} (Normal) Range: 1.8-7.8 Lymphs 22 % (Normal) Range: 14-46 Monocytes 7 % (Normal) Range: 4-13 Neutrophils 69 % (Normal) Range: 40-74 Platelets 187 {x10E3/uL} (Normal) Range: 140-415 MCHC 35.8 g/dL (Normal) Range: 32.0-36.0 RDW 13.6 % (Normal) Range: 11.7-15.0 MCH 31.9 pg (Normal) Range: 27.0-34.0 MCV 89 fL (Normal) Range: 80-98 Hematocrit 40.5 % (Normal) Range: 34.0-44.0 Hemoglobin 14.5 g/dL (Normal) Range: 11.5-15.0 RBC 4.54 {x10E6/uL} (Normal) Range: 3.80-5.10 WBC 7.2 {x10E3/uL} (Normal) Range: 4.0-10.5 :27 CHEST WITHOUT CONTRAST Radiology Report See Note (Normal) Comments: Exam Number: [id number] CT SCAN OF THE THORAX Multiple axial tomographic images were obtained from the thoracicinlet down to the adrenal glands without intravenous contrastadministration. Selective reso lution images were obtained as well ascoronal and sagittal reconstructions. HISTORYThiclaire is a 68-year-old female patient with history of recurringrespiratory infections. FINDINGSOn the resolution images, there is evidence of a mild degree ofbronchiectasis with some scarring in the posterior medial segment ofthe right lower lobe. There is also evidence of a tiny subtotal blebin the peripheral aspect of the right lower lobe. There is noevidence of pulmonary infiltration. There is no evidence ofconsolidation. There is no evidence of pleural effusion. There isevidence of a calcified granuloma in the right lower lobe as well.There is a mild degree of atelectatic changes along the posterioraspect of the left upper lobe. The ascending and descending thoracicaorta is unremarkable. IMPRESSION1) Mild degree of interstitial scarring and mild bronchiectasis inthe posterior medial segment of the right lower lobe.2) Minimal degree of atelectatic changes in the left upper lobe. Reported By: ARCHIE ALVARES 31-Arc-294892:05 PPD (01948) Comments: Lot #[id number]/Site-left forearmDose0.1 mlgiven by:[facility]; negative 91-Qdv-54498:18 TSH (40824) Comments: PATIENT WAS FASTINGPERFORMED BY: [facility] Tippgz3753 [facility] [id number] TSH 1.234 {uIU/mL} (Normal) Range: 0.450-4.500 35-Uwm-67626:18 METABOLIC PANEL, COMPREHENSIVE Comments: PATIENT WAS FASTINGPERFORMED BY: [facility] Fzhowz7475 [facility] [id number] (33496) A/G Ratio 1.4 (Normal) Range: 1.1-2.5 Albumin, Serum 4.4 g/dL (Normal) Range: 3.6-4.8 Alkaline Phosphatase, S 85 [iU]/L (Normal) Range: 25-165 ALT (SGPT) 40 [iU]/L (Normal) Range: 0-40 AST (SGOT) 35 [iU]/L (Normal) Range: 0-40 Bilirubin, Total 0.8 mg/dL (Normal) Range: 0.1-1.2 BUN 20 mg/dL (Normal) Range: 5-26 BUN/Creatinine Ratio 29 (Abnormal) Range: 8-27 Calcium, Serum 10.1 mg/dL (Normal) Range: 8.5-10.6 Carbon Dioxide, Total 24 mmol/L (Normal) Range: 20-32 Chloride, Serum 101 mmol/L (Normal) Range: 97-108 Creatinine, Serum 0.70 mg/dL (Normal) Range: 0.57-1.00 Globulin, Total 3.2 g/dL (Normal) Range: 1.5-4.5 Glom Filt Rate, Est >59 mL/min/1.73 (Normal) Glucose, Serum 117 mg/dL (Abnormal) Range: 65-99 If -Malian >59 mL/min/1.73 Comments: Note: Persistent reduction for 3 months or more in an eGFR<60 mL/min/1.73 m2 defines CKD. Patients with eGFR values>/=60 mL/min/1.73 m2 may also have CKD if evidence of persistentproteinur ia is (Normal) present. Additional information may be found [email or web address]. Potassium, Serum 3.2 mmol/L (Abnormal) Range: 3.5-5.2 Protein, Total, Serum 7.6 g/dL (Normal) Range: 6.0-8.5 Sodium, Serum 141 mmol/L (Normal) Range: 135-145 27-Hiz-40721:18 LIPID PANEL (72083) Comments: PATIENT WAS FASTINGPERFORMED BY: ILIR [employer]6 [facility] [id number] Cholesterol, Total 206 mg/dL (Abnormal) Range: 100-199 Comment SPRCS (Normal) Comments: If initial LDL-cholesterol result is >100 mg/dL, assess forrisk factors. HDL Cholesterol 35 mg/dL (Abnormal) Comments: According to ATP-III Guidelines, HDL-C >59 mg/dL is considered anegative risk factor for CHD. LDL Cholesterol Calc 116 mg/dL (Abnormal) Range: 0-99 LDL/HDL Ratio 3.3 {ratio_units} (Abnormal) Range: 0.0-3.2 Triglycerides 274 mg/dL (Abnormal) Range: 0-149 VLDL Cholesterol Kelsi 55 mg/dL (Abnormal) Range: 5-40 23-Fmt-47928:18 CBC WITH MANUAL DIFF (92017) Comments: PATIENT WAS FASTINGClinical Information: ADD DRAW FEE [id number] ADD J 51625 PERFORMED BY: ScannxD[place] [id number] Baso (Absolute) 0.0 {x10E3/uL} (Normal) Range: 0.0-0.2 Basos 0 % (Normal) Range: 0-3 Eos 4 % (Normal) Range: 0-7 Eos (Absolute) 0.2 {x10E3/uL} (Normal) Range: 0.0-0.4 Lymphs (Absolute) 1.6 {x10E3/uL} (Normal) Range: 0.7-4.5 Monocytes 10 % (Normal) Range: 4-13 Monocytes(Absolute) 0.4 {x10E3/uL} (Normal) Range: 0.1-1.0 Neutrophils (Absolute) 2.0 {x10E3/uL} (Normal) Range: 1.8-7.8 Hematocrit 40.1 % (Normal) Range: 34.0-44.0 Hemoglobin 14.2 g/dL (Normal) Range: 11.5-15.0 Lymphs 38 % (Normal) Range: 14-46 MCH 30.1 pg (Normal) Range: 27.0-34.0 MCHC 35.3 g/dL (Normal) Range: 32.0-36.0 MCV 85 fL (Normal) Range: 80-98 Neutrophils 48 % (Normal) Range: 40-74 Platelets 174 {x10E3/uL} (Normal) Range: 140-415 RBC 4.70 {x10E6/uL} Range: 3.80-5.10 (Normal) RDW 12.8 % (Normal) Range: 11.7-15.0 WBC 4.1 {x10E3/uL} (Normal) Range: 4.0-10.5 :2 ANAEROBIC CULT See Note (Normal) Comments: No anaerobic bacteria isolated. 6 :2 ANAEROBIC CULT See Note (Normal) Comments: No anaerobic bacteria isolated. 6 :26 CULTURE, NOSE GRAM STAIN See Note (Normal) Comments: GRAM STAIN RARE RED CELL STROMA RARE WHITE BLOOD CELLS NO ORGANISMS SEEN NASAL CULTURE No growth in 48 hours. (Normal) :26 CULTURE, WOUND GRAM STAIN See Note (Normal) Comments: GRAM STAIN RARE WHITE BLOOD CELLS 2+ RED BLOOD CELLS RARE GRAM POSITIVE COCCI WOUND CULTURE See Note (Normal) Comments: Penicillin is the drug of choice for Beta Streptococcalinfections. For Penicillin allergic patients, Erythromycinmay be used. AMOUNT GROWTH 3+ ORGANISM 1: GROUP A BETA STREPTOCOCCUS 66-Zfd-045765:26 MRSA DNA BY PCR MRSA RESULT SeeNote (Normal) Comments: Result: Negative 2-Ucu-423352:25 COMP METABOLIC Comments: COMMENTS: NEW ADMIT A/G 1.0 {RATIO} (Normal) Range: 0.9-2.4 ALB 3.8 g/dL (Normal) Range: 3.4-5.0 ALK P 95 U/L (Normal) Range: 50-136 ALT 50 [iU]/L (Normal) Range: 30-65 AST 27 U/L (Normal) Range: 15-37 BUN 12 mg/dL (Normal) Range: 7-18 BUN/CRE 13.3 {RATIO} (Normal) Range: 10-20 CA 9.2 mg/dL (Normal) Range: 8.5-10.1 CL 100 mmol/L (Normal) Range: 98-107 CO2 26.6 mmol/L (Normal) Range: 21.0-32.0 Comments: Please Note Reference Interval Change CREAT,SERUM 0.9 mg/dL (Normal) Range: 0.6-1.0 GAP 10 (Normal) Range: 5-15 GLOB 3.9 g/dL (Normal) Range: 2.7-4.2 Comments: Please Note Reference Interval Change GLU 101 mg/dL (Normal) Range: 70-110 K 3.0 mmol/L (Abnormal) Range: 3.5-5.1 NA 137 mmol/L (Normal) Range: 136-145 T BILI 1.01 mg/dL (Abnormal) Range: 0.00-1.00 T PROT 7.7 g/dL (Normal) Range: 6.4-8.2 41-Sdi-785144:10 MAMM, BILAT SCRN DIGITAL & CAD Radiology Report See Note (Normal) Comments: Exam Number: [id number] MAMMOGRAPHY, BILATERAL SCREENING DIGITAL AND CAD HISTORYRoutine screening. Full field digital images were obtained in mediolateral oblique andcraniocaudal projections . CAD image s were reviewed. The current study is compared to the examinations of August 2003, September2005. There is moderately dense fibroglandular parenchyma present. There isno skin thickening or retraction, elías ectural distortion, or clusterof suspicious microcalcifications. There are areas of asymmetricparenchymal density which have not significantly changed. If there isno suspicious palpable abnormality, f ollowup mammogram in 1 year isrecommended. IMPRESSIONThere is no radiographic evidence of malignancy identified. FINAL ASSESSMENTBenign findings. BIRADS Category 2. A letter regarding these results h as been sent to the patient. This interpretation was rendered by a radiologist certified under theMammography Quality Standards Act of 1992 (MQSA). The mammograms werealso examined with computer-aided detection software ([employer], [employer]). Reported By: JOVANY ARAMBULA M.D. Plan of Care Name Dates Details Instructions Dysuria : Water in diet, brief version Indication: Dysuria Nonsmoker : Eprescribed prescriptions (G8553) Indication: Nonsmoker Acute bacterial bronchitis : Sinus Headache: face pain Indication: Acute bacterial bronchitis Acute bacterial bronchitis : Eprescribed prescriptions (G8553) Indication: Acute bacterial bronchitis Hip bursitis, left : hip injection Indication: Hip bursitis, left Nonsmoker : Eprescribed prescriptions (G8553) Indication: Nonsmoker Encounter for routine adult medical exam with abnormal findings : Eprescribed prescriptions (G8553) Indication: Encounter for routine adult medical exam with abnormal findings Urinary tract infection, site not specified : Eprescribed prescriptions (G8553) Indication: Urinary tract infection, site not specified Diverticulitis : Eprescribed prescriptions (G8553) Indication: Diverticulitis Encounter for immunization : Shingles Vaccine Education 2005 Indication: Encounter for immunization Well woman exam : Mammogram *: gynecological health Indication: Well woman exam Diverticulitis : Diverticulitis *: diverticulitis Indication: Diverticulitis Cough : Follow up if no improvement or if symptoms worsen Indication: Cough Hypertensive left ventricular hypertrophy : Eprescribed prescriptions (G8553) Indication: Hypertensive left ventricular hypertrophy Wheezing : Follow up if no improvement or if symptoms worsen Indication: Wheezing Wheezing : Follow up if no improvement or if symptoms worsen Indication: Wheezing Cough : Follow up in 1 week Indication: Cough Influenza : Flu (Influenza) *: flu Indication: Influenza Elevated LFTs : Eprescribed prescriptions (G8553) Indication: Elevated LFTs Need for prophylactic vaccination and inoculation against influenza : Flu (Influenza) *: flu shot Indication: Need for prophylactic vaccination and inoculation against influenza Arthritis : Follow up if no improvement or if symptoms worsen Indication: Arthritis Hypercholesteremia : Eprescribed prescriptions (G8553) Indication: Hypercholesteremia Fall : Follow up if no improvement or if symptoms worsen Indication: Fall Fall : Follow up if no improvement or if symptoms worsen Indication: Fall Hematuria : follow up for recheck urine 1 week after complete antibiotic Indication: Hematuria Dysuria : *UTI treatment Indication: Dysuria Dysuria : Water in diet, brief version Indication: Dysuria Need for prophylactic vaccination and inoculation against influenza : Flu (Influenza) *: flu Indication: Need for prophylactic vaccination and inoculation against influenza Need for prophylactic vaccination and inoculation against influenza : Flu (Influenza) *: flu shot Indication: Need for prophylactic vaccination and inoculation against influenza Hypertensive left ventricular hypertrophy : Follow up if no improvement or if symptoms worsen Indication: Hypertensive left ventricular hypertrophy Urinary frequency : *UTI treatment Indication: Urinary frequency Urinary frequency : Water in diet, brief version Indication: Urinary frequency Afib : Reviewed Diagnostic Tests Indication: Afib Afib : Reviewed Rn Long Term Care Letter Indication: Afib Knee pain, right : Follow up in 2 weeks Indication: Knee pain, right Palpitation : Heart Palpitations *: fast heartbeat Indication: Palpitation Cough : Follow up if no improvement or if symptoms worsen Indication: Cough Bronchitis : *URI Treatment Indication: Bronchitis Bronchitis : *URI Symptoms Indication: Bronchitis Bronchitis : *Antibiotic Usage Education - Female Indication: Bronchitis Wheezing : FOLLOW UP IN 1 WEEK Indication: Wheezing Bronchitis : *URI Treatment Indication: Bronchitis Bronchitis : *URI Symptoms Indication: Bronchitis Bronchitis : *Antibiotic Usage Education - Female Indication: Bronchitis Shortness of breath at rest : Solu Medrol Injection/ Education Indication: Shortness of breath at rest Bronchitis : *URI Treatment Indication: Bronchitis Bronchitis : *URI Symptoms Indication: Bronchitis Bronchitis : *Antibiotic Usage Education - Female Indication: Bronchitis Bronchitis : FOLLOW UP NEEDED Indication: Bronchitis Bronchitis : *URI Treatment Indication: Bronchitis Bronchitis : *URI Symptoms Indication: Bronchitis Bronchitis : *Antibiotic Usage Education - Female Indication: Bronchitis Bronchitis : URI Symptoms Indication: Bronchitis Bronchitis : Antibiotic Usage Education - Female Indication: Bronchitis Bronchitis : *URI Treatment Indication: Bronchitis Bronchitis : Antibiotic Usage Education - Female Indication: Bronchitis Bronchitis : URI Symptoms Indication: Bronchitis Acute sinusitis, unspecified : *URI Treatment Indication: Acute sinusitis, unspecified Acute sinusitis, unspecified : Antibiotic Usage Education - Female Indication: Acute sinusitis, unspecified Acute sinusitis, unspecified : URI Symptoms Indication: Acute sinusitis, unspecified Bronchitis : *URI Treatment Indication: Bronchitis Bronchitis : Antibiotic Usage Education - Female Indication: Bronchitis Bronchitis : URI Symptoms Indication: Bronchitis Hypertension, benign : FOLLOW UP IN 1 WEEK Indication: Hypertension, benign Cellulitis and abscess of leg, except foot : FOLLOW UP TOMORROW Indication: Cellulitis and abscess of leg, except foot Cellulitis and abscess of leg, except foot : IV Indication: Cellulitis and abscess of leg, except foot Cellulitis of arm : Antibiotic Usage Education - Female Indication: Cellulitis of arm Cellulitis of arm : Antibiotic Usage Education - Female Indication: Cellulitis of arm Cellulitis of arm : Antibiotic Usage Education - Female Indication: Cellulitis of arm Well woman exam : Self Breast Exam Education Indication: Well woman exam Well woman exam : Pap/Pelvic/Bimanual/Rectal/Breast Exam was done. Indication: Well woman exam Well woman exam : Well Female Maintenance (KF) Indication: Well woman exam Well woman exam : Shingles Vaccine Education 2005 Indication: Well woman exam Well woman exam : Well Female Maintenance (KF) Indication: Well woman exam Planned Observations Ferritin ([id number])Indication: Elevated LFTs On: :05 Request HEPATIC FUNCTION PANEL ([id number])Indication: Elevated LFTs On: :04 Request YYLCY-NKTQFDXHPVH-MINPN ([id number])Indication: Elevated LFTs On: :04 Request METABOLIC PANEL, COMPREHENSIVE ([id number])Indication: Hypercholesteremia On: 88-Oql-700551:41 Request LIPOPROTEIN, BLD, BY NMR ([id number])Indication: Hypercholesteremia On: 48-Lxk-504684:41 Request Metabolic Panel, Basic (90694)Indication: Abdominal pain On: :25 Request CBC, Platelets & Auto Diff (41390)Indication: Abdominal pain On: 26-Kxq-815696:24 Request Sed Rate Erythrocyte (84678)Indication: Abdominal pain On: 95-Dvg-397340:16 Request URINE RASHAD CULTURE-IDENTIFICATN (78692)Indication: Dysuria On: 15-Vtq-77186:35 Request MICROALBUMIN: CREATININE RATIO (68815) AND ([id number])Indication: Hypertensive left ventricular hypertrophy On: :01 Request URINALYSIS (84308)Indication: Hypertensive left ventricular hypertrophy On: :01 Request CBC WITH MANUAL DIFF ([id number])Indication: Hypertensive left ventricular hypertrophy On: :01 Request Metabolic Panel, Comprehensive ([id number])Indication: Elevated LFTs On: :01 Request URINE RASHAD CULTURE-IDENTIFICATN ([id number])Indication: Urinary tract infection, site not specified On: :09 Request URINALYSIS ([id number])Indication: Urinary tract infection, site not specified On: 91-Flq-710522:09 Request URINALYSIS ([id number])Indication: Dysuria On: 77-Tld-044484:59 Request Homocysteine, Plasma (55957)Indication: MTHFR mutation On: 19-Nov-20169:24 Request Comments: follow up with in six months (approximately) CBC with auto diff (34751)Indication: Hematoma of hip, right, initial encounter On: :57 Request HEPATIC FUNCTION PANEL ([id number])Indication: Hypercholesteremia On: 01-Aqv-13033:37 Request Comments: 6 weeks HEPATITIS PANEL (18073)Indication: Elevated LFTs On: 42-Whl-902446:30 Request URINALYSIS, W/ MICRO ([id number])Indication: Hypertensive left ventricular hypertrophy On: :49 Request METABOLIC PANEL, COMPREHENSIVE (10104)Indication: Hypertensive left ventricular hypertrophy On: :49 Request LIPID PANEL ([id number])Indication: Hypertensive left ventricular hypertrophy On: :49 Request CBC with auto diff ([id number])Indication: Hypertensive left ventricular hypertrophy On: :49 Request HgA1C , Office ([id number])Indication: Impaired fasting glucose On: 17-Zvf-77284:47 Request Lipid Panel (55248)Indication: Afib On: 43-Omt-772429:21 Request Comments: copy to Dr. matthews Metabolic Panel, Basic (57245)Indication: Afib On: 86-Qrc-941322:20 Request HEPATIC FUNCTION PANEL (02512)Indication: Elevated LFTs On: 02-Ixl-546434:20 Request Lipid Panel ([id number])Indication: Hypercholesteremia On: 26-Iim-428822:20 Request METABOLIC PANEL, BASIC ([id number])Indication: Hypokalemia On: 17-Feb-20139:10 Request Comments: pls send copy to Dr Young also METABOLIC PANEL, COMPREHENSIVE ([id number])Indication: Palpitation On: 1-Uja-073914:10 Request CBC WITH MANUAL DIFF ([id number])Indication: Palpitation On: 7-Egw-562671:10 Request TSH (63452)Indication: Palpitation On: 1-Wlw-991386:10 Request CREATINE KINASE TOTAL ([id number])Indication: Abnormal EKG On: 9-Nxt-440036:10 Request CPK MB FRACTION ([id number])Indication: Abnormal EKG On: 1-Qnl-851419:10 Request Troponin I (33811)Indication: Abnormal EKG On: 0-Mfv-555069:10 Request LIPID PANEL (56983)Indication: Hypertensive left ventricular hypertrophy On: 45-Eev-531306:43 Request Comments: in in six months (approximately) only. URINALYSIS, W/ MICRO (64410)Indication: Hematuria On: 55-Xwo-185907:43 Request CBC (Auto) ([id number])Indication: Hypertensive left ventricular hypertrophy On: 58-Vey-593598:38 Request Metabolic Panel, Comprehensive (50261)Indication: Hypertensive left ventricular hypertrophy On: 27-Nkm-262053:37 Request URINE RASHAD CULTURE-IDENTIFICATN (68242)Indication: NEOP, BNG, RENAL PELVIS On: 46-Lzj-845905:37 Request COMPLEMENT, TOTAL (CH50) (53894)Indication: Rheumatoid arthritis On: 3-Icz-330172:22 Request COMPLEMENT C4 (49683)Indication: Rheumatoid arthritis On: 1-Zfj-371404:22 Request COMPLEMENT C3 (81677)Indication: Rheumatoid arthritis On: 9-Ktc-161650:22 Request Potassium Serum (33487)Indication: Hypokalemia On: 4-Qdi-937529:21 Request Comments: re check on Wednesday05-24-10 please call results to Dr. Troncoso RHEUMATOID FACTOR-QUANT ([id number]) test code [id number]: Rheumatoid arthritis On: 7-Cdd-736308:20 Request Comments: add to labs already drawn please Magnesium (97853)Indication: Hypokalemia On: 7-Wyl-310846:19 Request HEPATITIS PANEL (87471)Indication: Elevated LFTs On: :10 Request EBV IGM ANTIBODY (29270)Indication: Elevated LFTs On: : Request RASHAD CULTURE-BLOOD (60298)Indication: Urinary tract infection, site not specified On: : Request Amylase (99375)Indication: Abdominal pain, acute, generalized On: : Request Lipase (10085)Indication: Abdominal pain, acute, generalized On: : Request Sed Rate Erythrocyte (93150)Indication: Abdominal pain, acute, generalized On: : Request Metabolic Panel, Comprehensive (21449)Indication: Abdominal pain, acute, generalized On: : Request CBC with manual diff (40974)Indication: Abdominal pain, acute, generalized On: : Request Influenza A&B Viral Culture ([id number])Indication: INFLUENZA W/MANIFESTATION NEC On: 77-Pqw-916449:48 Request Influenza A H1N1 PCR ([id number])Indication: INFLUENZA W/MANIFESTATION NEC On: 04-Jzz-171919:48 Request Rapid Flu ([id number] x 2)Indication: INFLUENZA W/MANIFESTATION NEC On: 73-Cse-262895:48 Request METABOLIC PANEL, BASIC ([id number])Indication: Hypokalemia On: 32-Wzw-490304:20 Request CULTURE, SPUTUM (02415)Indication: Cough On: 24-Feb-20109:25 Request PPD ([id number])Indication: Screening examination for pulmonary tuberculosis On: 98-Rem-312379:05 Request Comments: Lot #[id number]-left forearmDose0.1 mlgiven by:[facility] Potassium Serum (14353)Indication: Hypokalemia On: 38-Lln-872857:27 Request Comments: 2weeks Glucose, PP/2 Hour (88829)Indication: Impaired fasting glucose On: 33-Cqh-014406:23 Request Comments: 75 gm Lipid Panel (28149)Indication: Hypercholesteremia On: 01-Jqu-151899:23 Request Comments: 4 months RASHAD CULTURE-OTHER (79960)Indication: Cellulitis and abscess of leg, except foot On: 29-Mub-795612:16 Request Comments: nasal BACT CULTURE ANY-ANAEROBIC ([id number])Indication: Cellulitis and abscess of leg, except foot On: :16 Request Comments: nasal BACT CULTURE ANY-ANAEROBIC (00408)Indication: Cellulitis and abscess of leg, except foot On: 61-Rfd-638756:15 Request Comments: rt leg RASHAD CULTURE-OTHER (24743)Indication: Cellulitis and abscess of leg, except foot On: 45-Kiq-930298:15 Request Comments: Rt leg OCCULT BLOOD FECES SCREEN (07213)Indication: Well woman exam On: :50 Request Comments: done in office Thin prep Pap ([id number])Indication: Well woman exam On: :50 Request URINALYSIS W/O MICRO ([id number])Indication: Hypertension, benign On: :49 Request CBC (Auto) ([id number])Indication: Hypertension, benign On: :49 Request Lipid Panel ([id number])Indication: Hypertension, benign On: :49 Request Metabolic Panel, Comprehensive ([id number])Indication: Hypertension, benign On: :49 Request Planned Encounters Medical; [facility] Pre Wellness Exam (Nurse) - On: 08-Mar-2018 8:00 [facility] SAMI Orta; [facility] Wellness Exam (Doctor) - On: 28-Mar-2018 8:00 [facility] Diana Troncoso MD, MD, Dana M Planned Procedures TDAP VACCINE >7 IM ([id number])By: On: 31-Aug-2017 Intent Diana Troncoso MD Comments: lot:[id number]:09/16/19rte:IM left deltoid dose:0.5mlgiven by:gosia Gonzáles LPN MD, Dana M DEXA SCAN AXIAL SKELETON On: 31-Aug-2017 Intent (53302)By: Diana Troncoso MD Comments: due 12-04 Diana Troncoso MD Aerosol Treatment ([id number])By: On: 28-Apr-2017 Intent Katerine Campo DO Comments: no noise after aeorols inspir or exp Radiology - Chest- PA and On: 28-Apr-2017 Intent LatBy: Katerine Campo DO Spirometry (44227)By: Alber On: 28-Apr-2017 Intent Katerine SANCHEZ Comments: normal SCREENING DIGITAL On: 19-Jan-2017 Intent TOMOSYNTHESIS OF BREAST (31303)By: Diana Troncoso MD, MD, Dana M Holter Monitor 24 hrsBy: On: 10-Nov-2016 Intent Diana Troncoso MD Comments: copy to [email or web address] and him to read. Diana NUNEZ Radiology - Hand - RightBy: On: 03-Nov-2016 Intent Diana Troncoso MD, MD, Dana M Radiology - Elbow - RightBy: On: 03-Nov-2016 Intent Daina Troncoso MD, MD, Dana M Radiology - Hip - RightBy: On: 03-Nov-2016 Intent Diana Troncoso MD, MD, Dana M Radiology - Chest- PA and On: 26-Jun-2016 Intent LatBy: Marleni Kang DO Comments: stat call results Aerosol Treatment ([id number])By: On: 26-Jun-2016 Marleni Lara DO Comments: with albuterol Holter Monitor 24 hrsBy: On: 21-May-2016 Intent Diana Troncoso MD, MD, Dana M EKG ([id number])By: You, On: 21-May-2016 Intent SAMI Comments: see scanned document of test done to see results reviewed today with patient Ultrasound - LiverBy: Manjit On: 05-May-2016 Intent Diana NUNEZ MD, Dana M Kenalog Injection, 10 mgm On: 21-Apr-2016 Intent (J3301)By: Diana Troncoso MD, MD, Dana M Radiology - Lumbar SpineBy: On: 10-Feb-2016 Intent Diana Troncoso MD, MD, Dana M Radiology - Hip - LeftBy: On: 10-Feb-2016 Intent Diana Troncoso MD, MD, Dana M Flu Vaccine (Quadrivalent) On: 31-Jan-2016 Intent [id number]: Diana Troncoso MD Comments: Lot:[id number]:10/16/16Dose:0.5mLRoute:IMSite:L DltdGiven By:CHRISSIE signed Diana Troncoso MD MAMMOGRAM, SCREENING, BOTH On: 20-Jan-2016 Intent BREAST ([id number])By: Diana Troncoso MD, MD, Dana M Flu Vaccine (Quadrivalent) On: 05-Feb-2015 Intent [id number]: Diana Troncoso MD Comments: Lot:[id number]:10/17/15Dose:0.5mLRoute:IMSite:L DltdGiven By:CHRISSIE signed Diana Troncoso MD IMMUNIZ ADMNIN, 1 VAC, On: 14-Jan-2015 Intent SNGL/COMBO (76350)By: Visit, Nurse [place] VACC[place] (92283)By: On: 14-Jan-2015 Intent Diana Troncoso MD Comments: lot: [id number]: 09/02site/route: R arm/SQamt:0.5mLVIS signed when applicableONUR Ballard MD, Dana M ADMINISTRATION OF On: 07-Jan-2015 Intent PNEUMOCOCCAL VACCINE (G0009)By: Izabela Rehman BILATERAL MAMMOGRAMS On: 18-Dec-2014 Intent (87998)By: Diana Troncoso MD, MD, Dana M Solu -Medrol Injection, 125 On: 19-Nov-2014 Intent mg (J2930)By: Jacquelyn Garcia CNP Aerosol Treatment (77172)By: On: 19-Nov-2014 Intent Jacquelyn Garcia CNP Wax CurettesBy: Manjit NUNEZ, On: 03-Jul-2014 Intent Diana Pena MD Ear Irrigation (27533)By: On: 03-Jul-2014 Intent Diana Troncoso MD Comments: IrrigationSite- R earAmount/Color/Quality - medium amount of soft, dark brown cerumen removed Toelrated well: yesCurette ONUR Schofield MD, Dana M Rocephin Injection, 2 Gram On: 03-Jul-2014 Intent (J0696)By: Diana Troncoso MD Comments: IMlot: [id number]: 12/18/16site/route: RGM and LGMamt: 2GVIS signed when applicableONUR Ballard MD, Dana M Solu -Medrol Injection, 125 On: 03-Jul-2014 Intent mg (J2930)By: Manjit NUNEZ, Comments: lot: [id number]: site/route: LGM/IMamt: 2mLVIS signed when applicableONUR Ballard MD, Dana M ELECTROCARDIOGRAM, COMPLETE On: 03-Jul-2014 Intent (ECG) (20546)By: Diana Troncoso MD, MD, Dana M Radiology - ChestBy: Ciesa On: 02-Jul-2014 Intent GRACE Kaitlin Aerosol Treatment ([id number])By: On: 29-Jun-2014 Intent Jacquelyn Garcia CNP Solu -Medrol Injection, 125 On: 13-Jun-2014 Intent mg (J2930)By: Ciparam EDWARDS Kaitlin Aerosol Treatment (17724)By: On: 13-Jun-2014 Intent Jacquelyn Garcia CNP Radiology - ChestBy: Ciesa On: 06-Jun-2014 Intent GRACE Kaitlin Aerosol Treatment (76352)By: On: 06-Jun-2014 Intent Nat Boyle LPN Radiology - Knee - RightBy: On: 09-Apr-2014 Intent Katerine Campo DO Jwipersbp-[facility]r-[facility] On: 09-Apr-2014 Intent (18975)By: Katerine Campo DO ADMINISTRATION OF INFLUENZA On: 12-Feb-2014 Intent VIRUS VACCINE (G0008)By: Comments: Lot #[id number]-L dltd, IMDose prefilled syringegiven by:SILAS Meredith and ABN signed Visit, Nurse FLU VAC, SPLIT, >3 YEARS, On: 12-Feb-2014 Intent INTRAMUSC (02618)By: Visit, Nurse Ultrasound - LiverBy: Radha On: 23-Jan-2014 Intent Jacquelyn EDWARDS Urpzglbcu-Kku-Lnqti On: 25-Sep-2013 Intent (09639)By: Jacquelyn Garcia CNP SPECIMEN HANDLING/TRANSPORT On: 21-Jun-2013 Intent (09738)By: Pinawillian EDWARDS Jacquelyn Bean Breast Screening - On: 20-Jun-2013 Intent BilateralBy: Manjit NUNEZ, Diana Troncoso MD, Diana Nicole ADMINISTRATION OF INFLUENZA On: 08-May-2013 Intent VIRUS VACCINE (G0008)By: Nellie Hickey FLU VAC, SPLIT, >3 YEARS, On: 08-May-2013 Intent INTRAMUSC (06947)By: Manjit Comments: lot [id number] 2014site/route L kely, IMamt 0.5mlVIS and ABN signed when applicableONUR Ballard MD, Diana Troncoso MD, Diana Nicole Aerosol Treatment (45654)By: On: 21-Apr-2013 Intent Radha EDWARDS Jacquelyn Bean SPECIMEN HANDLING/TRANSPORT On: 16-Jan-2013 Intent (74411)By: Danisha Dawson LPN Venous Doppler - RightBy: On: 05-Dec-2012 Intent Pinawillian EDWARDS Kaitlin Radiology - Knee - RightBy: On: 05-Dec-2012 Intent Radha EDWARDS Jacquelyn Bean Holter Moniter (23874)By: On: 24-Nov-2012 Intent Katerine Campo DO Nuclear Stress Test/Stress On: 24-Nov-2012 Intent SPECT/TreadmillBy: Katerine Campo DO Echo CompleteBy: Alber SANCHEZ, On: 24-Nov-2012 Intent Katerine EKG (18294)By: Ernesto, On: 24-Nov-2012 Intent Shayy MATHEW Comments: nsr mild st depression lateral precordial leads MAMMOGRAM, SCREENING, BOTH On: 17-May-2012 Intent BREASTS (65033)By: Manjit NUNEZ, Diana Pena MD FLU VAC, SPLIT, >3 YEARS, On: 29-Mar-2012 Intent INTRAMUSC (18848)By: Ori, Comments: Lot:[id number]:6.30.13Dose:0.5mLRoute:IMSite:L DltdGiven By:JKMVIS signed Izabela ADMINISTRATION OF INFLUENZA On: 29-Mar-2012 Intent VIRUS VACCINE (G0008)By: Izabela Rehman Radiology - Wrist - LeftBy: On: 29-Sep-2011 Intent Diana Troncoso MD, MD, Diana Nicole Eprescribed prescriptions On: 29-Sep-2011 Intent (G8553)By: Diana Troncoso MD, MD, Dana M Aerosol Treatment (16066)By: On: 12-Jun-2011 Intent Ciesa CHILD PSYCHOLOGIST, Kaitlin IMMUNIZ ADMNIN, 1 VAC, On: 03-Apr-2011 Intent SNGL/COMBO (21426)By: Diana Troncoso MD, MD, Dana M FLU VAC, SPLIT, >3 YEARS, On: 03-Apr-2011 Intent INTRAMUSC (49313)By: Manjit NUNEZ, Diana Troncoso MD, Diana Nicole MAMMOGRAM, SCREENING, BOTH On: 03-Apr-2011 Intent BREASTS (70517)By: Diana Troncoso MD, MD, Dana M Radiology - ChestBy: Ciesa On: 21-Jul-2010 Intent CHILD PSYCHOLOGIST, Kaitlin Pulse Oximetry (50412)By: On: 21-Jul-2010 Intent Ciesa CHILD PSYCHOLOGIST, Kaitlin Aerosol Treatment (57744)By: On: 21-Jul-2010 Intent Ciesa CHILD PSYCHOLOGIST, Kaitlin CT - Abdomen & PelvisBy: On: 22-May-2010 Intent Manjit NUNEZ, Diana Troncoso Comments: wet read Diana Chandra MD Aerosol Treatment ([id number])By: On: 10-Mar-2010 Intent Katerine Campo DO Comments: less noise adn more air exchg after aerosol -- still some wheezing and harsh noise Spirometry (03052)By: Alber On: 10-Mar-2010 Intent Katerine SANCHEZ Comments: mild obstruction - with FEV 1 of 83% Solu- Medrol Injection, 125mg On: 10-Mar-2010 Intent (J2930)By: Alber SANCHEZ, Comments: 2ml given im in lt hip [id number] exp 10-18-[address] - Brain/HeadBy: Alber SANCHEZ, On: 10-Mar-2010 Intent Katerine Pulse Oximetry (75389)By: On: 10-Mar-2010 Intent Alber DO, Katerine Dbhwlomst-Sgx-Riarb On: 10-Mar-2010 Intent (36868)By: Katerine Campo DO Radiology - ChestBy: Alber On: 10-Mar-2010 Intent Katerine SANCHEZ Solu -Medrol Injection, 125 On: 07-Mar-2010 Intent mg (J2930)By: Radha EDWARDS, Comments: Lot #[id number]/12Site-L hip VKYwst8syqwggy by:SHIRA Bean Aerosol Treatment (48734)By: On: 07-Mar-2010 Intent Jacquelyn Garcia CNP Pulse Oximetry (38389)By: On: 24-Feb-2010 Intent Jacquelyn Garcia CNP Inhaler Demonstration On: 24-Feb-2010 Intent (79677)By: Jacquelyn Garcia CNP Aerosol Treatment (07351)By: On: 24-Feb-2010 Intent Jacquelyn Garcia CNP ADMINISTRATION OF INFLUENZA On: 03-Feb-2010 Intent VIRUS VACCINE (G0008)By: Kanu Comments: Lot #[id number] 4PExp- 4/11Site- L Dltd/IMDose 0.5mlgiven by: QUINCY SILVA LPN, Megan L FLU VAC, SPLIT, >3 YEARS, On: 03-Feb-2010 Intent INTRAMUSC (21110)By: Kanu MATHEW, Eduardo L FLU VAC, SPLIT, >3 YEARS, On: 31-Jan-2010 Intent INTRAMUSC (38234)By: Augusto CLEMENTS, Comments: injection given in left deltoid,see scanned document/ [facility] IMMUNIZ ADMNIN, 1 VAC, On: 31-Jan-2010 Intent SNGL/COMBO (18686)By: Augusto CLEMENTS, Danita MAMMOGRAM, SCREENING, BOTH On: 25-Jul-2009 Intent BREASTS (23736)By: Manjit NUNEZ, Diana Troncoso MD, Diana Nicole Pulse Oximetry (87251)By: On: 28-Mar-2009 Intent SAMI Orta Flu Vaccine, Split IM On: 11-Jan-2009 Intent (62547)By: Rani MATHEW, Comments: Lot #[id number] 4PExp-5/2009Site-Left deltoidgiven by:FLIP Kruger CurettesBy: Radha EDWARDS, On: 02-Jul-2008 Intent Kaitlin Ear Irrigation (48040)By: On: 02-Jul-2008 Intent Jacquelyn Garcia CNP Aerosol Treatment (68339)By: On: 02-Jul-2008 Intent Jacquelyn Garcia CNP Bio Z (08076)By: Manjit NUNEZ, On: 04-May-2008 Intent Diana Troncoso MD, Diana Nicole EKG (43368)By: Manjit NUNEZ, On: 04-May-2008 Intent Diana Troncoso MD, Diana Nicole Holter Moniter (35312)By: On: 04-May-2008 Intent Manjit NUNEZ, Diana Troncoso MD, Diana Nicole Nuclear Stress Test/Stress On: 04-May-2008 Intent SPECT/AdenosineBy: Manjit NUNEZ, Diana Troncoso MD, Diana Nicole Echo CompleteBy: Manjit NUNEZ, On: 04-May-2008 Intent Diana Pena MD Cartoid DopplerBy: Manjit On: 04-May-2008 Intent , Diana Troncoso MD, Diana Nicole FLU VAC, SPLIT, >3 YEARS, On: 20-Mar-2008 Intent INTRAMUSC (65810)By: Yared, Comments: Lot #[id number]-3/30/08Site-right deltoidDose0.5mlgiven by Caro Armenta IMMUNIZ ADMNIN, 1 VAC, On: 20-Mar-2008 Intent SNGL/COMBO (13301)By: Kathi Vail Radiology - ChestBy: Manjit On: 28-Feb-2008 Intent Diana NUNEZ MD, Diana Nicole Comments: not better end of week INFUSION, NORMAL SALINE On: 06-Jul-2007 Intent SOLUTION , 250 CC (J7050)By: Jacquelyn Garcia CNP THER/PROPH/DIAG IV INF, INIT On: 06-Jul-2007 Intent (96694)By: Jacquelyn Garcia CNP Rocephin Injection, 2 Gram On: 06-Jul-2007 Intent (J0696)By: Jacquelyn Garcia CNP Comments: 2gms infused left hand without problem HYDRATION IV INFUSION, INIT On: 05-Jul-2007 Intent (17150)By: Jacquelyn Garcia CNP Comments: #22 gauge started to left forearm area without difficulty per gosia Vancoymcin 500mg/premixedBy: On: 05-Jul-2007 Intent Jacquelyn Garcia CNP Comments: x2Lot #:[id number] date:09-17-08 Amount given:1 gram Route: IVSite given:left forearm area Given by: gosia boiler fireman IMMUNIZ ADMNIN, 1 VAC, On: 08-Feb-2007 Intent SNGL/COMBO (88144)By: Marleni Kang DO FLU VAC, SPLIT, >3 YEARS, On: 08-Feb-2007 Intent INTRAMUSC (94384)By: Jorge Luis SANCHEZ, Comments: given in left deltoid, 0.5cc, lot#[id number], exp.10.17.07 WF Marleni Valencia THER/PROPH/DIAG IV INF, INIT On: 24-Jan-2007 Intent (79874)By: Marleni Kang DO Comments: #22 gauge initiated right forearm without difficulty per gosia INFUSION, NORMAL SALINE On: 24-Jan-2007 Intent SOLUTION , 250 CC (J7050)By: Marleni Kang DO Rocephin Injection, 2 Gram On: 24-Jan-2007 Intent (J0696)By: Marleni Kang DO Comments: Lot #:[id number] date:06-25Amount given:2 grams Route: IVSite given:right forearm Given by: gosia MAMMOGRAM, SCREENING, BOTH On: 26-Aug-2006 Intent BREASTS (81277)By: Manjit Comments: 10-12-06 , Diana Troncoso MD, Diana Nicole ELECTROCARDIOGRAM, COMPLETE On: 26-Aug-2006 Intent (ECG) (67080)By: Manjit NUNEZ, Diana Pena MD Planned Medications INJECTION, CEFTRIAXONE SODIUM, PER 250 MG Ordered: 03-Jul-2014 Pending Manjit NUNEZ, Diana Pena MD INJECTION, METHYLPREDNISOLONE SODIUM SUCCINATE, UP TO 125 MG Ordered: 07-Mar-2010 Pending Jacquelyn Garcia CNP INJECTION, METHYLPREDNISOLONE SODIUM SUCCINATE, UP TO 125 MG Ordered: 10-Mar-2010 Pending Alber DO, Katerine INJECTION, METHYLPREDNISOLONE SODIUM SUCCINATE, UP TO 125 MG Ordered: 13-Jun-2014 Pending Radha EDWARDS, Jacquelyn Bean INJECTION, METHYLPREDNISOLONE SODIUM SUCCINATE, UP TO 125 MG Ordered: 03-Jul-2014 Pending Manjit NUNEZ, Diana Troncoso MD, Diana Nicole INJECTION, METHYLPREDNISOLONE SODIUM SUCCINATE, UP TO 125 MG Ordered: 19-Nov-2014 Pending Radha EDWARDS, Jacquelyn Bean INJECTION, TRIAMCINOLONE ACETONIDE, NOT OTHERWISE SPECIFIED, 10 MG Ordered: 21-Apr-2016 Pending Manjit NUNEZ, Diana Troncoso MD, Diana Nicole Instructions Name Dates Details History of tobacco abuse : How to access health information online Indication: History of tobacco abuse History of tobacco abuse : How to access health information online - Detail Indication: History of tobacco abuse History of tobacco abuse : Patient Instructions Indication: History of tobacco abuse BMI 29.0-29.9,adult : How to access health information online Indication: BMI 29.0-29.9,adult BMI 29.0-29.9,adult : How to access health information online - Detail Indication: BMI 29.0-29.9,adult BMI 29.0-29.9,adult : Patient Instructions Indication: BMI 29.0-29.9,adult Pacemaker : How to access health information online Indication: Pacemaker Pacemaker : How to access health information online - Detail Indication: Pacemaker Pacemaker : Patient Instructions Indication: Pacemaker Bronchitis : How to access health information online Indication: Bronchitis Bronchitis : How to access health information online - Detail Indication: Bronchitis Bronchitis : Patient Instructions Indication: Bronchitis Nonsmoker : Patient Instructions Indication: Nonsmoker Nonsmoker : How to access health information online - Detail Indication: Nonsmoker Nonsmoker : How to access health information online Indication: Nonsmoker Sore on calf : How to access health information online Indication: Sore on calf Sore on calf : How to access health information online - Detail Indication: Sore on calf Sore on calf : Patient Instructions Indication: Sore on calf BMI 29.0-29.9,adult : How to access health information online Indication: BMI 29.0-29.9,adult BMI 29.0-29.9,adult : How to access health information online - Detail Indication: BMI 29.0-29.9,adult BMI 29.0-29.9,adult : Patient Instructions Indication: BMI 29.0-29.9,adult BMI 29.0-29.9,adult : How to access health information online Indication: BMI 29.0-29.9,adult BMI 29.0-29.9,adult : How to access health information online - Detail Indication: BMI 29.0-29.9,adult BMI 29.0-29.9,adult : Patient Instructions Indication: BMI 29.0-29.9,adult BMI 29.0-29.9,adult : How to access health information online Indication: BMI 29.0-29.9,adult BMI 29.0-29.9,adult : How to access health information online - Detail Indication: BMI 29.0-29.9,adult BMI 29.0-29.9,adult : Patient Instructions Indication: BMI 29.0-29.9,adult Right hand pain : How to access health information online Indication: Right hand pain Right hand pain : How to access health information online - Detail Indication: Right hand pain Right hand pain : Patient Instructions Indication: Right hand pain Mouth ulcer : How to access health information online Indication: Mouth ulcer Mouth ulcer : How to access health information online - Detail Indication: Mouth ulcer Mouth ulcer : Patient Instructions Indication: Mouth ulcer History of tobacco abuse : How to access health information online Indication: History of tobacco abuse History of tobacco abuse : How to access health information online - Detail Indication: History of tobacco abuse History of tobacco abuse : Patient Instructions Indication: History of tobacco abuse Acute bacterial bronchitis : How to access health information online Indication: Acute bacterial bronchitis Acute bacterial bronchitis : How to access health information online - Detail Indication: Acute bacterial bronchitis Acute bacterial bronchitis : Patient Instructions Indication: Acute bacterial bronchitis Bradycardia : How to access health information online Indication: Bradycardia Bradycardia : How to access health information online - Detail Indication: Bradycardia Bradycardia : Patient Instructions Indication: Bradycardia Dizziness : How to access health information online Indication: Dizziness Dizziness : How to access health information online - Detail Indication: Dizziness Dizziness : Patient Instructions Indication: Dizziness Elevated LFTs : How to access health information online Indication: Elevated LFTs Elevated LFTs : How to access health information online - Detail Indication: Elevated LFTs Elevated LFTs : Patient Instructions Indication: Elevated LFTs Acute leg pain, left : How to access health information online Indication: Acute leg pain, left Acute leg pain, left : How to access health information online - Detail Indication: Acute leg pain, left Acute leg pain, left : Patient Instructions Indication: Acute leg pain, left Acute bilateral back pain, unspecified back location : How to access health information online Indication: Acute bilateral back pain, unspecified back location Acute bilateral back pain, unspecified back location : How to access health information online - Detail Indication: Acute bilateral back pain, unspecified back location Acute bilateral back pain, unspecified back location : Patient Instructions Indication: Acute bilateral back pain, unspecified back location Nonsmoker : How to access health information online Indication: Nonsmoker Nonsmoker : How to access health information online - Detail Indication: Nonsmoker Nonsmoker : Patient Instructions Indication: Nonsmoker Encounter for routine adult medical exam with abnormal findings : How to access health information online Indication: Encounter for routine adult medical exam with abnormal findings Encounter for routine adult medical exam with abnormal findings : How to access health information online - Detail Indication: Encounter for routine adult medical exam with abnormal findings Encounter for routine adult medical exam with abnormal findings : Patient Instructions Indication: Encounter for routine adult medical exam with abnormal findings Mitral valve prolapse : How to access health information online Indication: Mitral valve prolapse Mitral valve prolapse : How to access health information online - Detail Indication: Mitral valve prolapse Mitral valve prolapse : Patient Instructions Indication: Mitral valve prolapse Flu-like symptoms : How to access health information online Indication: Flu-like symptoms Flu-like symptoms : How to access health information online - Detail Indication: Flu-like symptoms Flu-like symptoms : Patient Instructions Indication: Flu-like symptoms Urinary tract infection, site not specified : How to access health information online Indication: Urinary tract infection, site not specified Urinary tract infection, site not specified : How to access health information online - Detail Indication: Urinary tract infection, site not specified Urinary tract infection, site not specified : Patient Instructions Indication: Urinary tract infection, site not specified Rheumatoid arthritis : How to access health information online Indication: Rheumatoid arthritis Rheumatoid arthritis : How to access health information online - Detail Indication: Rheumatoid arthritis Rheumatoid arthritis : Patient Instructions Indication: Rheumatoid arthritis Diverticulitis : How to access health information online Indication: Diverticulitis Diverticulitis : How to access health information online - Detail Indication: Diverticulitis Diverticulitis : Patient Instructions Indication: Diverticulitis Well woman exam : How to access health information online Indication: Well woman exam Well woman exam : How to access health information online - Detail Indication: Well woman exam Well woman exam : Patient Instructions Indication: Well woman exam Diverticulitis : How to access health information online Indication: Diverticulitis Diverticulitis : How to access health information online - Detail Indication: Diverticulitis Diverticulitis : Patient Instructions Indication: Diverticulitis Hypertensive left ventricular hypertrophy : How to access health information online Indication: Hypertensive left ventricular hypertrophy Hypertensive left ventricular hypertrophy : How to access health information online - Detail Indication: Hypertensive left ventricular hypertrophy Hypertensive left ventricular hypertrophy : Patient Instructions Indication: Hypertensive left ventricular hypertrophy Allergic rhinitis : Patient Instructions Indication: Allergic rhinitis Fall : Patient Instructions: take celebrex have a home - 1-2 a day for 5-7 days with food Indication: Fall Cough : Patient Instructions Indication: Cough Elevated LFTs : How to access health information online Indication: Elevated LFTs Elevated LFTs : How to access health information online - Detail Indication: Elevated LFTs Elevated LFTs : Patient Instructions Indication: Elevated LFTs Elevated liver enzymes : Patient Instructions Indication: Elevated liver enzymes Hypercholesteremia : How to access health information online Indication: Hypercholesteremia Hypercholesteremia : How to access health information online - Detail Indication: Hypercholesteremia Hypercholesteremia : Patient Instructions Indication: Hypercholesteremia Fall : Patient Instructions Indication: Fall Afib : Patient Instructions Indication: Afib Palpitation : Patient Instructions Indication: Palpitation Encounters Phone Encounter On: 14-Feb-2018 8:57 Encounter Diagnosis: Elevated LFTs End: 14-Feb-2018 9:06 [facility] Order On: 28-Jan-2018 15:04 Encounter Diagnosis: Elevated LFTs End: 28-Jan-2018 15:05 [facility] Phone Encounter On: 28-Dec-2017 14:42 Encounter Diagnosis: Hypercholesteremia End: 28-Dec-2017 14:46 [facility] Phone Encounter On: 21-Dec-2017 8:33 Encounter Diagnosis: Coronary artery disease, non-occlusive, Hypercholesteremia End: 21-Dec-2017 9:06 [facility] Lab Order On: 10-Dec-2017 8:10 Encounter Diagnosis: Hypercholesteremia End: 10-Dec-2017 8:12 [facility] Office Visit On: 06-Dec-2017 10:32 Encounter Diagnosis: Mitral valve prolapse, Carotid stenosis, Abnormal glucose level, Degeneration of intervertebral disc of lumbar region, Atherosclerosis of arteries, Immunosuppression, Sinusitis, chronic, History of tobacco abuse, End: 06-Dec-2017 11:16 BMI 29.0-29.9,adult, Family history of heart disease, Osteopenia, Osteoarthritis of left hip, unspecified osteoarthritis type, Bradycardia, Nonsmoker, Rheumatoid arthritis, Hypercholesteremia, History of fall, Elevated LFTs, MTHFR mutation, 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 Yes the patient did have a mini mental status exam done today. The End: 31-Aug-2017 15:32 activities of daily living the patient needs help with are none. The patient has driven in past 6 months, fallen in the past 6 months and put handrails in bathroom. The patient has completed the followi ng preventative measures: mammography (2016) and colonoscopy ([id number]). The patient does have durable power of rolled gold plater and living will. The patient has noticed nothing from the geriatic depress ion scale. Other providers contributing to the patient's care are cordwood cutter helper, medical art therapist and other: (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 Patient has been compliant with instructions. Current medication use: no side effects and compliant with dosing regimen. Patient sleeps 7 hours p End: 30-Jul-2017 14:30 er night. Impact of disease: emotional impact-mild. Nutrition: balanced diet and supplemental vitamins. The medical issues the patient is following up for include other (diverticulosis ?itis).Encounter Diagnosis: BMI 29.0-29.9,adult, History of tobacco abuse, Abdominal pain [facility] Office Visit On: 08-Jul-2017 12:33 Encounter Reason: Follow up hospital - Reason for ER visit: note: (pace maker). The patient feels well with minor complaints and has good energy level. Patient has been compliant with instructions. Current medication use End: 08-Jul-2017 13:13 : no side effects and compliant with dosing regimen. Patient sleeps 7 hours per night. Impact of disease: emotional impact-mild. Nutrition: balanced diet and supplemental vitamins. Hospital procedures performed were other (pace maker). Encounter Diagnosis: BMI 29.0-29.9,adult, MTHFR mutation, Pacemaker, History of tobacco abuse, Hypercholesteremia [facility] Phone Encounter On: 29-Jun-2017 13:42 [facility] End: 29-Jun-2017 14:02 Phone Encounter On: 25-May-2017 11:36 Encounter Diagnosis: Dysuria (788.1) End: 25-May-2017 11:38 [facility] Office Visit On: 20-May-2017 16:21 Encounter Diagnosis: Urinary tract infection, site not specified End: 20-May-2017 16:29 [facility] Office Visit On: 18-May-2017 8:59 Encounter Diagnosis: Dysuria (788.1) End: 18-May-2017 15:00 [facility] Phone Encounter On: 13-May-2017 9:33 Encounter Diagnosis: Flu-like symptoms End: 13-May-2017 9:34 [facility] Office Visit On: 04-May-2017 12:37 Encounter Reason: Follow up, Diagnostic Procedure Results - Diagnostic tests include other (labs). Date: (). 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 Symptoms include nasal congestion, runny nose, sore throat, hoarseness, productive cough, wheezing and fever (syed End: 28-Apr-2017 17:08 d it). Onset was sudden 1 week(s) ago. The symptoms occur constantly. The patient describes this as moderate in severity and unchanged.Encounter Diagnosis: BMI 29.0-29.9,adult, Nonsmoker, Bronchitis, Abnormal lung sounds, Cough [facility] Office Visit On: 02-Mar-2017 11:38 Encounter Diagnosis: BMI 29.0-29.9,adult, Sore on calf, History of tobacco abuse End: 02-Mar-2017 12:44 [facility] Visit On: 19-Jan-2017 13:29 Encounter Diagnosis: BMI 29.0-29.9,adult, History of tobacco abuse, Encounter for routine adult medical exam with abnormal findings, Carotid stenosis, Mitral valve prolapse, Hypercholesteremia, History of fall, End: 21-Jan-2017 5:46 Degeneration of intervertebral disc of lumbar region, Osteopenia, Sinusitis, chronic, Atherosclerosis of arteries, Immunosuppression, Rheumatoid arthritis, Allergic rhinitis, Abnormal glucose level, Family history of heart disease, Hematoma of hip, right, initial encounter, Bradycardia, Hypertensive left ventricular hypertrophy, Elevated LFTs, Afib, Osteoarthritis of left hip, unspecified osteoarthritis type, MTHFR mutation, Elevated TSH, Urinary tract infection, site not specified, Encounter for screening mammogram for breast cancer (Renamed from Encounter for screening mammogram for malignant neoplasm of breast), Disequilibrium, 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 [facility] Order On: 04-Jan-2017 8:34 Encounter Diagnosis: Dysuria (788.1) End: 04-Jan-2017 8:36 [facility] Order On: 20-Dec-2016 17:58 Encounter Diagnosis: Elevated LFTs, Hypertensive left ventricular hypertrophy End: 20-Dec-2016 18:02 [facility] Prescription Refill On: 14-Dec-2016 14:36 Encounter Diagnosis: Urinary tract infection, site not specified End: 14-Dec-2016 14:41 [facility] Order On: 14-Dec-2016 14:07 Encounter Diagnosis: Urinary tract infection, site not specified End: 14-Dec-2016 14:10 [facility] Phone Encounter On: 09-Dec-2016 13:58 Encounter Diagnosis: Dysuria (788.1) End: 09-Dec-2016 14:00 [facility] Office Visit On: 19-Nov-2016 9:07 Encounter Reason: UTI - The urinary symptoms are described as painful urination, frequency and burning. The symptoms have been occurring for 24 hours and have been ??recurrent.Encounter Diagnosis: BMI 29.0-29.9,adult, History of tobacco abuse, End: 19-Nov-2016 9:59 Urinary tract infection, site not specified, MTHFR mutation, Bradycardia, Hematoma of hip, right, initial encounter [facility] Office Visit On: 10-Nov-2016 9:47 Encounter Reason: Follow up acute care visit - The patient feeling better since last seen and improving. Patient has been compliant with instructions. Current medication use: no side effects, compliant with dosing regime End: 10-Nov-2016 10:28 n and considered effective by patient. Patient sleeps 7 hours per night. Impact of disease: emotional impact-moderate. Nutrition: balanced diet and supplemental vitamins. The medical issues the patient is following up for include other (fall). Encounter Diagnosis: BMI 29.0-29.9,adult, Nonsmoker, History of fall, Hematoma of hip, right, initial encounter, Fall from steps, initial encounter, Bradycardia [facility] Office Visit On: 03-Nov-2016 7:28 Encounter Diagnosis: Hip pain, acute, right, Right elbow pain, Right hand pain, Nonsmoker, Bradycardia, Hypertensive left ventricular hypertrophy, Fall from steps, initial encounter, Hematoma of hip, right, initial encounter End: 03-Nov-2016 8:33 [facility] Prescription Refill On: 21-Sep-2016 14:19 Encounter Diagnosis: Mouth ulcer End: 21-Sep-2016 14:28 [facility] Office Visit On: 21-Sep-2016 10:00 Encounter Diagnosis: BMI 29.0-29.9,adult, Nonsmoker, Chest congestion, Mouth ulcer End: 21-Sep-2016 14:16 [facility] Refill Request On: 04-Sep-2016 12:56 Encounter Diagnosis: Dysuria (788.1) End: 04-Sep-2016 13:00 [facility] Phone Encounter On: 31-Aug-2016 10:40 Encounter Diagnosis: Urinary tract infection, site not specified End: 31-Aug-2016 10:42 [facility] Phone Encounter On: 31-Aug-2016 9:20 Encounter Diagnosis: Dysuria (788.1) End: 31-Aug-2016 9:22 [facility] Phone Encounter On: 18-Aug-2016 16:43 Encounter Diagnosis: Diverticulitis End: 18-Aug-2016 16:47 [facility] Office Visit On: 06-Aug-2016 8:31 Encounter Reason: Follow up for chronic medical issues - The patient feels well with minor complaints and has decreased energy level. Patient has been compliant with instructions. Current medication use: no side effects, End: 06-Aug-2016 9:23 compliant with dosing regimen and considered effective by patient. Patient sleeps 7 hours per night. Impact of disease: emotional impact-mild. Nutrition: balanced diet and supplemental vitamins. The fl dical issues the patient is following up for include blood sugar issues, cardiac issues, high blood pressure, high cholesterol, osteoarthritis, osteoporosis/osteopenia and other (immunosupressed, MTHFR mutation, DDD, elevated lft's, RA ). Encounter Diagnosis: Abnormal glucose level, History of tobacco abuse, BMI 29.0- 29.9,adult, History of fall, Mitral valve prolapse, Allergic rhinitis, Family history of heart disease, Carotid stenosis, Elevated TSH, Osteoarthritis of left hip, unspecified osteoarthritis type, Degeneration of intervertebral disc of lumbar region, Bradycardia, Hypertensive left ventricular hypertrophy, Afib, Acute bilateral back pain, unspecified back location, Osteopenia, Hypercholesteremia, Elevated LFTs, Nonsmoker, Rheumatoid arthritis, Hip bursitis, left, Immunosuppression, MTHFR mutation, Atherosclerosis of arteries, Sinusitis, chronic, Wheezing, Encounter for Medicare annual wellness exam [facility] Office Visit On: 26-Jun-2016 11:07 Encounter Reason: Cold Symptoms - Symptoms include runny nose and productive cough (green), while symptoms do not include scratchy throat, sore throat, facial pain or headache. Onset was day(s) ago. The patient describes End: 28-Jun-2016 17:59 this as unchanged. Associated symptoms do not include ear pain, wheezing, shortness of breath, nausea, vomiting, diarrhea or fever. The patient is not currently being treated for this problem. Note for Cold symptoms: on - and felt really cold inside on wednesday no take temp= not sob- wheezy- Encounter Diagnosis: Nonsmoker, BMI 28.0-28.9,adult, Acute bacterial bronchitis, Wheezing [facility] Phone Encounter On: 09-Jun-2016 13:28 [facility] End: 09-Jun-2016 13:29 Phone Encounter On: 02-Jun-2016 16:51 Encounter Diagnosis: Bradycardia End: 02-Jun-2016 16:58 [facility] Office Visit On: 01-Jun-2016 11:35 Encounter Reason: Follow up acute care visit - The patient feeling better since last seen and improving. Patient has been compliant with instructions. Current medication use: no side effects and compliant with dosing reg End: 01-Jun-2016 12:20 imen. Patient sleeps 6 hours per night. Impact of disease: emotional impact-mild. Nutrition: balanced diet and supplemental vitamins. The medical issues the patient is following up for include other (HTN ).Encounter Diagnosis: Bradycardia, Nonsmoker , BMI 28.0-28.9,adult, Vertigo, Hypertensive left ventricular hypertrophy, Hypokalemia (276.8), Elevated LFTs, Afib, Acute leg pain, left, Left hip pain, Elevated TSH [facility] Office Visit On: 21-May-2016 12:27 Encounter Reason: Vertigo - The onset of the vertigo has been acute and has been occurring in a persistent pattern. The course has been increasing. The vertigo is characterized as lightheadedness.Encounter Diagnosis: Vertigo, Bradycardia, End: 21-May-2016 14:01 Hypertensive left ventricular hypertrophy [facility] Phone Encounter On: 05-May-2016 14:37 Encounter Diagnosis: Elevated LFTs End: 05-May-2016 14:39 [facility] Office Visit On: 04-May-2016 9:47 Encounter Reason: Follow up, Diagnostic Procedure Results - Diagnostic tests include other ([facility] )., [ADDITIONAL REASON] Annual Medicare Exam - Yes the patient did have () a mini mental status exa End: 05-May-2016 11:22 m done today. The activities of daily living the patient needs help with are none. The patient has driven in past 6 months and put handrails in bathroom, but the patient has not had fecal incontinence, had urinary incontinence, missed or ran out of medications to soon, fallen in the past 6 months, gotten lost, has a medalert necklace or bracelet or put area rugs through house. The patient has complete d the following preventative measures: mammography (December 2015) and colonoscopy (Had cologuard done this year ). The patient does have durable power of rolled gold plater and living will. The patient has noti silvano nothing from the geriatic depression scale. Other providers contributing to the patient's care are cordwood cutter helper (Dr Young), director acute (Arin - when had pneumonia but not currently in need of his care at this time), medical art therapist (dr Garland), surgeon ([facility] - shoulder) and other: (dentist - Dr Chiu - [facility] - goes every 3 years. Last seen January 2016Dr Jasbir martines - ENT for sinus issues but no issues since sx). Encounter Diagnosis: Elevated LFTs, Nonsmoker, BMI 28.0-28.9,adult, Hypercholesteremia, Encounter for Medicare annual wellness exam, MTHFR mutation, Elevated TSH [facility] Office Visit On: 21-Apr-2016 7:35 Encounter Diagnosis: Acute leg pain, left, Nonsmoker, Hip bursitis, left, Degeneration of intervertebral disc of lumbar region, Osteoarthritis of left hip, unspecified osteoarthritis type End: 21-Apr-2016 8:10 [facility] Office Visit On: 14-Feb-2016 9:59 Encounter Reason: Follow up acute care visit - The patient feeling better since last seen and improving. Patient has been compliant with instructions. Current medication use: no side effects, compliant with dosing regime End: 17-Feb-2016 9:43 n and considered effective by patient. Patient sleeps 7 hours per night. Impact of disease: emotional impact-mild. Nutrition: balanced diet and supplemental vitamins. The medical issues the patient is f ollowing up for include other (aches and pains ).Encounter Diagnosis: Acute bilateral back pain, unspecified back location, Nonsmoker, Left hip pain, Degenerative Disc Disease - Lumbar (722.52) [facility] Annotation/Addendum On: 12-Feb-2016 16:58 Encounter Diagnosis: Unspecified Diagnosis End: 12-Feb-2016 17:01 [facility] Office Visit On: 10-Feb-2016 11:35 Encounter Reason: Hip Problem - This condition occurred without any known injury. Symptoms include pain in other joints (in lower left flank, in the groin left side, ). The symptoms are located in the left hip. The patie End: 10-Feb-2016 15:52 nt describes the hip problem as hip pain. Onset was sudden. The symptoms occur constantly. The patient describes symptoms as severe. Symptoms are relieved by rest (sleeps on back with feet propped up with advil).Encounter Diagnosis: BMI 28.0-28.9,adult, Nonsmoker, Acute bilateral back pain, unspecified back location, Left hip pain, Diverticulitis [facility] Office Visit On: 31-Jan-2016 7:18 Encounter Reason: Physical female exam - General health: feels well with no complaints, has good energy level and is sleeping well. The patient's appetite is normal. Nutrition: appropriate balanced diet. Exercises 1 days End: 03-Feb-2016 7:49 per week. Sleeps on average 7 hours per night. Elimination problems include urinary frequency. Safety measures include appropriate use of safety belts, appropriate use of helmets and home smoke detecto rs , but do not include counseling regarding safe sex/HIV or counseling regarding substance abuse.Encounter Diagnosis: Encounter for Medicare annual wellness exam, Atherosclerosis of arteries, Sinusitis, chronic, Allergic rhinitis, Mitral valve prolapse, History of tobacco abuse, Hypertensive left ventricular hypertrophy, Afib, Prediabetes, Elevated LFTs, Hypercholesteremia, Rheumatoid arthritis, Carotid stenosis, Immunosuppression, History of fall, Stress reaction, Family history of heart disease, Osteopenia, Need for prophylactic vaccination and inoculation against influenza [facility] Phone Encounter On: 20-Jan-2016 10:41 Encounter Diagnosis: Encounter for screening mammogram for breast cancer (Renamed from Encounter for screening mammogram for malignant neoplasm of breast) End: 20-Jan-2016 10:43 [facility] Office Visit On: 10-Sep-2015 10:52 Encounter Reason: Follow up for chronic medical issues - The patient feels well with minor complaints and is sleeping well. Patient has been compliant with instructions. Current medication use: no side effects and compli End: 10-Sep-2015 11:50 ant with dosing regimen. Patient sleeps 8 hours per night. Impact of disease: emotional impact-moderate. Nutrition: balanced diet and supplemental vitamins. The medical issues the patient is following u p for include cardiac issues, high blood pressure, high cholesterol and other (RA ).Encounter Diagnosis: Mitral valve prolapse, History of tobacco abuse, Allergic rhinitis, Arthritis, Atherosclerosis of arteries, Sinusitis, chronic, Hypertensive left ventricular hypertrophy, Rheumatoid arthritis, Hypercholesteremia, Afib, Chills, Elevated LFTs, Stress reaction, Prediabetes [facility] Office Visit On: 04-Jul-2015 11:46 Encounter Reason: Flu Like Symptoms - Management changes made at the last visit include adding medication (antibiotics). Symptoms include chills and body aches. Onset was gradual 2 week(s) ago.Encounter Diagnosis: Flu-like symptoms, Chills End: 04-Jul-2015 12:33 [facility] Office Visit On: 26-Jun-2015 8:13 Encounter Reason: UTI - The urinary symptoms are described as painful urination, frequency, urgency and burning. The symptoms have been occurring for 2 days and have been increasing.Encounter Diagnosis: Urinary tract infection, site not specified End: 26-Jun-2015 8:58 [facility] Office Visit On: 09-May-2015 8:26 Encounter Reason: Follow up for chronic medical issues - The patient feels well with no complaints, has good energy level and is sleeping well. Patient has been compliant with instructions. Current medication use: no isabel End: 09-May-2015 9:14 e effects, compliant with dosing regimen and considered effective by patient. Patient sleeps 7 hours per night. Impact of disease: emotional impact-mild. Nutrition: balanced diet and supplemental vitami ns. The medical issues the patient is following up for include cardiac issues, high blood pressure, high cholesterol and other (allergic rhinitis, elevated lft's, R/A ).Encounter Diagnosis: Rheumatoid arthritis, History of tobacco abuse, Sinusitis, chronic, Elevated LFTs, Mitral valve prolapse, Hypercholesteremia, Arthritis, Allergic rhinitis, Afib, Atherosclerosis of arteries, Hypertensive left ventricular hypertrophy, Impaired fasting glucose (790.21) [facility] Office Visit On: 21-Feb-2015 7:54 Encounter Reason: Diverticulitis - Symptoms include abdominal pain, abdominal bloating, abdominal cramping, chills, nausea and diarrhea. The patient describes the pain as aching. Onset was sudden 24 hour(s) ago. The symp End: 21-Feb-2015 8:46 toms occur constantly. The patient describes this as moderate in severity. Current treatment includes clear liquid diet (actually started prep for colonoscopy last evening, and after drinking the liter of prep noticed sx. of diverticulitis flare ). By report there is good compliance with treatment. Pertinent medical history includes diverticulosis. Risk factors include impaired immunity (RA on orencea ). Past evaluation has included CT of the abdomen. Past treatment has included antibiotics. Note for Diverticulitis: started after prep for colonscopy and started with diverticulitis pain. no blood in stool. feverish chills.Encounter Diagnosis: Diverticulitis, History of tobacco abuse [facility] Office Visit On: 05-Feb-2015 11:32 Encounter Reason: Injections - The medication the patient is here to receive is other (flu).Encounter Diagnosis: Need for prophylactic vaccination and inoculation against influenza End: 06-Feb-2015 13:06 [facility] Office Visit On: 14-Jan-2015 9:39 Encounter Reason: Injections - The medication the patient is here to receive is shingles vaccine IM.Encounter Diagnosis: SHINGLES,NEED FOR PROPHYLACTIC VACCINATION AND INOCULATION AGAINST (V05.8) End: 15-Jan-2015 7:37 [facility] Office Visit On: 07-Jan-2015 15:09 Encounter Diagnosis: Need for pneumococcal vaccination End: 08-Jan-2015 20:56 [facility] Office Visit On: 03-Jan-2015 8:34 Encounter Reason: Annual Medicare Exam - The patient had reviewed and updated the family history, medication/s, past medical history and social history. Yes the patient did have a mini mental status exam done today. The End: 03-Jan-2015 9:20 activities of daily living the patient needs help with are none. The patient has driven in past 6 months and put handrails in bathroom, but the patient has not had fecal incontinence, had urinary incont inence, missed or ran out of medications to soon, fallen in the past 6 months (fell last year did balance training and think help), gotten lost, has a medalert necklace or bracelet or put area rugs thro [facility] house. The patient has completed the following preventative measures: PAP smear (many years ago will have today ), mammography () and colonoscopy (2005). The patient does have durable power of rolled gold plater and living will. The patient has noticed nothing from the geriatic depression scale. Other providers contributing to the patient's care are cordwood cutter helper (Dr. Young ), gastrologist (Dr. Cnade novak ), medical art therapist (Dr. Garcia ) and other: (Dr. Reza Kim, ENT: Dr. Bourgeois ).Encounter Diagnosis: BMI 28.0-28.9,adult, Well Women Exam, No Pap (V72.31) (Mammo), Dysuria (788.1), Rheumatoid arthritis (714.0), Allergic rhinitis, Sinusitis,chronic (473.9), Atherosclerosis NEC (440.8), arthritis,unspecified (716.90), Mitral Valve Prolapse (746.9), Atrial fibrillation (427.31), Elevated LFT (790.6), Hypertension with LVH (402.90), Hypercholesteremia (272.0), Annual Medicare Physical (V70.0) [facility] Refill Request On: 31-Dec-2014 10:59 Encounter Diagnosis: Yeast infection End: 31-Dec-2014 11:02 [facility] Office Visit On: 21-Dec-2014 9:49 Encounter Reason: Follow up ER - Reason for hospitalization note: (diverticulitis ). Patient has been compliant with instructions. Current medication use: no side effects, compliant with dosing regimen and considered eff End: 21-Dec-2014 10:25 ective by patient. The patient feels well with minor complaints and has decreased energy level. Patient sleeps 7 hours per night. Impact of disease: emotional impact-moderate. Nutrition: balanced diet and supplemental vitamins.Encounter Diagnosis: Diverticulitis, Well Women Exam, No Pap (V72.31) (Mammo) [facility] Phone Encounter On: 18-Dec-2014 11:40 Encounter Diagnosis: SCREENING FOR BREAST CANCER (V76.10) End: 18-Dec-2014 11:43 [facility] Office Visit On: 19-Nov-2014 9:38 Encounter Reason: Shortness of Breath - The last clinic visit was 1 week(s) ago. Symptoms include dyspnea, cough and wheezing. Onset was gradual. Associated symptoms include fever (at first , but better now).Encounter Diagnosis: End: 19-Nov-2014 10:19 Reactive airway disease with wheezing, Cough (786.2) [facility] Office Visit On: 03-Jul-2014 8:54 Encounter Reason: Follow up for chronic medical issues - The patient does not feel well and is sleeping well. Patient has been compliant with instructions. Current medication use: experiencing side effects and compliant End: 04-Jul-2014 22:23 with dosing regimen. Patient sleeps 8 hours per night. Impact of disease: emotional impact-mild. Nutrition: balanced diet and supplemental vitamins. The medical issues the patient is following up for in clude cardiac issues, high blood pressure, high cholesterol and other (RA, elevated LFT's ).Encounter Diagnosis: Hypertension with LVH (402.90), Hypercholesteremia (272.0), Atherosclerosis NEC (440.8), arthritis,unspecified (716.90), Sinusitis,chronic (473.9), Elevated LFT (790.6), Mitral Valve Prolapse (746.9), Rheumatoid arthritis (714.0), Flu-like symptoms, Knee pain, Bronchitis, Allergic rhinitis, Immunocompromised, Rib pain, Well Women Exam, No Pap (V72.31) (Mammo), Atrial fibrillation (427.31), Disequilibrium of Gait(781.2), Impaired fasting glucose (790.21), Cerumen impaction (380.4) [facility] Annotation/Addendum On: 02-Jul-2014 12:29 Encounter Diagnosis: Cough (786.2) End: 02-Jul-2014 12:34 [facility] Office Visit On: 29-Jun-2014 8:34 Encounter Reason: Shortness of Breath - Symptoms include fatigue, cough and wheezing. Onset was sudden day(s) ago. Onset followed a respiratory infection. The symptoms occur constantly. The patient describes this as unchanged.Encounter Diagnosis: End: 29-Jun-2014 9:05 Allergic rhinitis, Wheezing (786.07) [facility] Office Visit On: 13-Jun-2014 8:44 Encounter Reason: Follow up acute care visit - The patient feeling better since last seen (still have a cough). Patient has been compliant with instructions. Current medication use: no side effects. Patient sleeps 9 hour End: 13-Jun-2014 14:22 s per night. Impact of disease: no overall impact. Nutrition: balanced diet. The medical issues the patient is following up for include other (Cardiac).Encounter Diagnosis: Bronchitis, Cough (786.2), Wheezing (786.07) [facility] Office Visit On: 06-Jun-2014 8:58 Encounter Reason: Flu Like Symptoms - The last clinic visit was 4 day(s) ago. Symptoms include fever, chills, body aches, nasal congestion, runny nose, postnasal drainage and headache. Onset was sudden 4 day(s) ago. Ther End: 06-Jun-2014 9:29 e is no known event that preceded symptom onset. The symptoms occur constantly. The episodes occur daily and last for 4 days. The patient describes this as moderate in severity and worsening. Associated symptoms include fatigue, fever and chills. By report there is good compliance with treatment. Previous presentation included nasal congestion, runny nose, postnasal drainage, fever and chills.Encounter Diagnosis: Flu-like symptoms, Influenza, Cough (786.2) [facility] Office Visit On: 09-Apr-2014 10:49 Encounter Reason: Knee Pain - This condition occurred following a specific injury. The injury involved the right knee. This occurred 1 hour(s) ago at home. Symptoms include knee pain and decreased range of motion.Encounter Diagnosis: Fall, Rib pain, End: 09-Apr-2014 11:20 Knee pain [facility] Office Visit On: 02-Apr-2014 12:04 Encounter Reason: Cough - The onset of the cough has been sudden. The cough is characterized as dry. The amount of sputum produced is scanty. The cough occurs all the time. The symptoms are aggravated by supine posture. End: 02-Apr-2014 12:16 The symptoms have been associated with fever and wheezing, while the symptoms have not been associated with hoarseness.Encounter Diagnosis: Bronchitis, Immunocompromised, Cough (786.2) [facility] Office Visit On: 28-Feb-2014 9:36 Encounter Reason: Follow up tests - Date: (January and February 2014).Encounter Diagnosis: Elevated LFT (790.6), Hypertension with LVH (402.90), Atherosclerosis NEC (440.8), Elevated liver enzymes, Mitral Valve Prolapse (746.9), End: 28-Feb-2014 10:23 Hypercholesteremia (272.0), Rheumatoid arthritis (714.0), Hair loss, Well Women Exam, No Pap (V72.31) (Mammo), Atrial fibrillation (427.31), arthritis,unspecified (716.90), Sinusitis,chronic (473.9) [facility] Office Visit On: 12-Feb-2014 11:17 Encounter Reason: InjectionsEncounter Diagnosis: NEED FOR PROPHYLACTIC VACCINATION AND INOCULATION AGAINST INFLUENZA (V04.81) End: 13-Feb-2014 7:33 [facility] Office Visit On: 23-Jan-2014 8:27 Encounter Reason: Follow up tests - Diagnostic tests include other (labs). Date: (01/16/14).Encounter Diagnosis: Elevated liver enzymes, arthritis,unspecified (716.90) End: 23-Jan-2014 9:49 [facility] Office Visit On: 09-Jan-2014 11:18 Encounter Reason: Follow up for chronic medical issues - The patient feels well with minor complaints and has decreased energy level. Patient has been compliant with instructions. Current medication use: experiencing isabel End: 09-Jan-2014 11:56 e effects and compliant with dosing regimen. Patient sleeps 7 hours per night. Impact of disease: emotional impact-mild. Nutrition: balanced diet and supplemental vitamins. The medical issues the patien t is following up for include cardiac issues, high blood pressure, high cholesterol and other (RA, elevated LFT's ).Encounter Diagnosis: Hypertension with LVH (402.90), Hypercholesteremia (272.0), Elevated LFT (790.6), arthritis,unspecified (716.90) , Mitral Valve Prolapse (746.9), Atherosclerosis NEC (440.8), Rheumatoid arthritis (714.0), Well Women Exam, No Pap (V72.31) (Mammo), Rib pain on right side, Fall, Atrial fibrillation (427.31), Sinusitis,chronic (473.9), Hair loss [facility] Office Visit On: 25-Sep-2013 11:09 Encounter Reason: Falls, Geriatric - The most recent fall occurred outdoors. The fall resulted from tripping. The patient describes the symptoms as mild and unchanged. Associated symptoms include pain from the injury.Encounter Diagnosis: End: 25-Sep-2013 11:32 Rib pain on right side, Fall [facility] Phone Encounter On: 15-Sep-2013 15:19 Encounter Diagnosis: Hypercholesteremia (272.0) End: 15-Sep-2013 15:22 [facility] Office Visit On: 13-Jul-2013 12:24 Encounter Reason: Follow up for chronic medical issues - The patient feels well with minor complaints and has decreased energy level. Patient has been compliant with instructions. Current medication use: compliant with d End: 13-Jul-2013 13:09 osing regimen. Patient sleeps 7 hours per night. Impact of disease: emotional impact- mild. Nutrition: balanced diet and supplemental vitamins. The medical issues the patient is following up for include cardiac issues, high blood pressure, high cholesterol and other (RA, elevated LFT's ).Encounter Diagnosis: Impaired fasting glucose (790.21), Mitral Valve Prolapse (746.9), Elevated LFT (790.6), Well Women Exam, No Pap (V72.31) (Mammo), Sinusitis,chronic (473.9), Atrial fibrillation (427.31), Palpitation (785.1), arthritis,unspecified (716.90), Abnormal EKG(794.31), Hypertension with LVH (402.90), Hematuria, Hair loss, Rheumatoid arthritis (714.0), Hypercholesteremia (272.0), Knee pain, right (719.46), Atherosclerosis NEC (440.8) [facility] Phone Encounter On: 27-Jun-2013 17:07 Encounter Diagnosis: Hair loss End: 27-Jun-2013 17:20 [facility] Office Visit On: 21-Jun-2013 11:04 Encounter Reason: Urinary problems - The onset of the urinary problems has been sudden and they have been occurring in a persistent pattern for hours. The course has been increasing. The urinary problems are described as End: 21-Jun-2013 11:35 moderate. The urinary problem is characterized as frequency, urgency and painful urination.Encounter Diagnosis: Dysuria (788.1), Hematuria [facility] Phone Encounter On: 20-Jun-2013 12:50 Encounter Diagnosis: SCREENING FOR BREAST CANCER (V76.10) End: 20-Jun-2013 12:51 [facility] Office Visit On: 08-May-2013 10:05 Encounter Reason: Injections - The medication the patient is here to receive is other (influenza).Encounter Diagnosis: NEED FOR PROPHYLACTIC VACCINATION AND INOCULATION AGAINST INFLUENZA (V04.81) End: 08-May-2013 15:49 [facility] Office Visit On: 21-Apr-2013 10:24 Encounter Reason: Cough - The onset of the cough has been sudden. The cough is characterized as dry. The cough occurs all the time. The symptoms have been associated with runny nose and wheezing, while the symptoms have End: 21-Apr-2013 10:56 not been associated with fever or hoarseness.Encounter Diagnosis: BRONCHITIS, NOT SPECIFIED ACUTE OR CHRONIC (490.), Wheezing (786.07), Rheumatoid arthritis (714.0), Hypertension with LVH (402.90) [facility] Lab Order On: 17-Feb-2013 9:03 Encounter Diagnosis: Hypokalemia (276.8) End: 17-Feb-2013 9:19 [facility] Phone Encounter On: 18-Jan-2013 16:31 Encounter Diagnosis: Arm Pain (729.5) End: 18-Jan-2013 16:32 [facility] Office Visit On: 16-Jan-2013 10:16 Encounter Reason: Urinary problems - The onset of the urinary problems has been sudden and they have been occurring in a persistent pattern for days. The course has been increasing. The urinary problems are described as End: 16-Jan-2013 10:46 moderate. The urinary problem is characterized as frequency, urgency and painful urination.Encounter Diagnosis: Urinary Frequency (788.41), Hypokalemia (276.8) [facility] Office Visit On: 06-Jan-2013 13:37 Encounter Diagnosis: Hypertension with LVH (402.90) End: 06-Jan-2013 13:37 [facility] Office Visit On: 05-Jan-2013 8:17 Encounter Reason: Follow up hospital - Reason for ER visit: note: (afib 9-10 to 9-13). The patient feels well with minor complaints, has decreased energy level and is sleeping well. Patient has been compliant with instru End: 05-Jan-2013 8:56 ctions. Current medication use: no side effects and compliant with dosing regimen. Patient sleeps 6 hours per night. Nutrition: balanced diet.Encounter Diagnosis: Hypertension with LVH (402.90), Palpitation (785.1), Atrial fibrillation (427.31) [facility] Office Visit On: 21-Dec-2012 8:46 Encounter Reason: Follow up tests - Diagnostic tests include other (Holter, labs ) and X-Ray. Date: (12/05/12).Encounter Diagnosis: Hypokalemia (276.8), Palpitation (785.1) End: 21-Dec-2012 9:15 [facility] Office Visit On: 05-Dec-2012 9:17 Encounter Diagnosis: Hypokalemia (276.8) End: 05-Dec-2012 9:18 [facility] Office Visit On: 05-Dec-2012 8:41 Encounter Reason: Knee Pain - This condition occurred without any known injury. Symptoms include knee pain, warmth, stiffness and decreased range of motion. Symptoms are located in the right knee. The patient describes t End: 05-Dec-2012 9:17 he pain as sharp and aching. Onset was 1 week(s) ago. The symptoms occur constantly. The patient describes symptoms as unchanged. Current treatment includes oral corticosteroids (celebrex).Encounter Diagnosis: Knee pain, right (459.46) [facility] Phone Encounter On: 25-Nov-2012 8:18 Encounter Diagnosis: Hypokalemia (276.8) End: 25-Nov-2012 8:20 [facility] Office Visit On: 24-Nov-2012 10:38 Encounter Reason: Palpitations - Initial presentation was 2 month(s) ago. Presentation included a forceful heartbeat and a rapid heartbeat. This problem has not been previously evaluated. This problem has not been previo End: 24-Nov-2012 11:13 usly treated. The last clinic visit was 2 month(s) ago. No changes in management were made at the last visit. Symptoms include palpitations and forceful heartbeat. Onset was sudden. There is no known ev ent that preceded symptom onset. The symptoms occur intermittently. The patient describes this as moderate in severity and worsening. Associated symptoms do not include chest pain (?), weakness, dizziness, lightheadedness or syncope. Encounter Diagnosis: Palpitation (785.1), Abnormal EKG(794.31) [facility] Office Visit On: 17-May-2012 11:09 Encounter Reason: Follow up for chronic medical issues - The patient feels well with no complaints, has good energy level and is sleeping well. Patient has been compliant with instructions. Current medication use: experi End: 17-May-2012 11:48 encing side effects (I quit the tricor over the muscle aches and I had to stop), compliant with dosing regimen and considered effective by patient. Patient sleeps 8 hours per night. Impact of disease: e motional impact-mild. Nutrition: balanced diet and supplemental vitamins. The medical issues the patient is following up for include cardiac issues, high blood pressure, high cholesterol, osteoarthritis and other (RA, emphysema, elevated lft's ). Encounter Diagnosis: NEOP, BNG, RENAL PELVIS (223.1), Well Women Exam, No Pap (V72.31) (Mammo), Atherosclerosis NEC (440.8), Emphysema (492.8), Hypokalemia (276.8), Sinusitis,chronic (473.9), Elevated LFT (790.6), arthritis,unspecified (716.90), Stress Reaction (308.4), Rheumatoid arthritis (714.0), Hematuria (599.7), Hypercholesteremia (272.0), Arm Pain (729.5), Mitral Valve Prolapse (746.9), Hypertension with LVH (402.90), Unspecified hearing loss (389.9), Headache (784.0), GENERAL SYMPTOMS; SYNCOPE AND COLLAPSE (780.2), Cerumen impaction (380.4), Cellulitis of arm (682.3), Cellulitis and abscess of leg, except foot (682.6), Chest pain (786.59), 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), Hypertension,benign(401.1), immunosuppression , Acute bronchitis (466.0) [facility] Office Visit On: 29-Mar-2012 9:47 Encounter Reason: Injections - The medication the patient is here to receive is other (flu shot).Encounter Diagnosis: Need for prophylactic vaccination and inoculation against influenza (V04.81) End: 01-Apr-2012 7:15 [facility] Annotation/Addendum On: 20-Oct-2011 17:11 Encounter Diagnosis: Hypercholesteremia (272.0) End: 20-Oct-2011 17:13 [facility] Lab Order On: 01-Oct-2011 10:46 Encounter Diagnosis: Hypercholesteremia (272.0) End: 01-Oct-2011 10:47 [facility] Annotation/Addendum On: 29-Sep-2011 11:53 Encounter Diagnosis: Arm Pain (729.5) End: 29-Sep-2011 11:56 [facility] Office Visit On: 29-Sep-2011 11:10 Encounter Reason: Follow up for chronic medical issues - The patient feels well with no complaints, has good energy level and is sleeping well. Patient has been compliant with instructions. Current medication use: experi End: 29-Sep-2011 11:48 encing side effects (I quit the tricor over the muscle aches and I had to stop), compliant with dosing regimen and considered effective by patient. Patient sleeps 7 hours per night. Impact of disease: e motional impact-mild. Nutrition: balanced diet and supplemental vitamins. The medical issues the patient is following up for include cardiac issues, high blood pressure, high cholesterol, osteoarthritis and other (RA, emphysema, elevated lft's ). Encounter Diagnosis: Rheumatoid arthritis (714.0), Hypercholesteremia (272.0), Emphysema (492.8), Sinusitis,chronic (473.9), NEOP, BNG, RENAL PELVIS (223.1), Elevated LFT (790.6), Stress Reaction (308.4), Hypertension with LVH (402.90), Mitral Valve Prolapse (746.9), Atherosclerosis NEC (440.8), Well Women Exam, No Pap (V72.31) (Mammo), Arm Pain (729.5) [facility] Office Visit On: 12-Jun-2011 10:06 Encounter Reason: Sinusitis/ - The course has been worsening. The sinusitis/ has no relieving factors. Associated features include The symptoms have been associated with cough, nasal discharge/stuffy nose and sinus pain, End: 12-Jun-2011 10:26 while the symptoms have not been associated with ear pain, sore throat, swollen lymph glands or teeth pain. No previous evaluations were reported.Encounter Diagnosis: Rheumatoid arthritis (714.0), BRONCHITIS, NOT SPECIFIED ACUTE OR CHRONIC (490.), Cough (786.2), Wheezing (786.07) [facility] Office Visit On: 17-Apr-2011 8:35 Encounter Diagnosis: Hypercholesteremia (272.0) End: 17-Apr-2011 8:36 [facility] Office Visit On: 03-Apr-2011 11:27 Encounter Reason: Follow up for chronic medical issues - The patient feels well with no complaints, has good energy level and is sleeping well. Patient has been compliant with instructions. Current medication use: no isabel End: 03-Apr-2011 12:12 e effects, compliant with dosing regimen and considered effective by patient. Patient sleeps 7 hours per night. Impact of disease: emotional impact-mild. Nutrition: balanced diet and supplemental vitami ns. The medical issues the patient is following up for include cardiac issues, high blood pressure, high cholesterol, osteoarthritis and other (RA, emphysema, elevated lft's ).Encounter Diagnosis: Rheumatoid arthritis (714.0), Atherosclerosis NEC (440.8), Hypercholesteremia (272.0), Elevated LFT (790.6), Emphysema (492.8), Well Women Exam, No Pap (V72.31) (Mammo), Mitral Valve Prolapse (746.9), Hypertension with LVH (402.90), Stress Reaction (308.4), NEOP, BNG, RENAL PELVIS (223.1), Sinusitis,chronic (473.9), WWV V73.21, Need for prophylactic vaccination and inoculation against influenza (V04.81) [facility] Office Visit On: 19-Aug-2010 15:01 Encounter Reason: Follow up Meds - The patient feels well with minor complaints, has good energy level and is sleeping well. Patient has been compliant with instructions. Current medication use: no side effects and compl End: 19-Aug-2010 15:46 iant with dosing regimen. Patient sleeps 7 hours per night.Encounter Diagnosis: Rheumatoid arthritis (714.0), Elevated LFT (790.6), Hypercholesteremia (272.0), Atherosclerosis NEC (440.8), Hematuria (599.7) [facility] Office Visit On: 28-Jul-2010 13:04 Encounter Reason: Follow up acute care visit - The patient feeling better since last seen and improving. Patient has been compliant with instructions. Current medication use: no side effects, compliant with dosing regime End: 28-Jul-2010 13:28 n and considered effective by patient. Patient sleeps 6 hours per night. The medical issues the patient is following up for include All identified problems below and other (bronchitis ).Encounter Diagnosis: Wheezing (786.07) [facility] Office Visit On: 21-Jul-2010 11:38 Encounter Reason: Cough - The onset of the cough has been sudden and has been occurring in a persistent pattern for 2 days. The course has been constant. The cough is characterized as dry. The cough occurs all the time.Encounter Diagnosis: End: 21-Jul-2010 12:36 BRONCHITIS, NOT SPECIFIED ACUTE OR CHRONIC (490.), Cough (786.2), Wheezing (786.07) [facility] Phone Encounter On: 22-May-2010 15:20 Encounter Diagnosis: Hypokalemia (276.8), Rheumatoid arthritis (714.0) End: 22-May-2010 15:23 [facility] Phone Encounter On: 22-May-2010 15:18 Encounter Diagnosis: Rheumatoid arthritis (714.0), Hypokalemia (276.8) End: 22-May-2010 15:20 [facility] Office Visit On: 22-May-2010 10:38 Encounter Reason: Follow up acute care visit - The patient feels the same. Patient has been compliant with instructions. Current medication use: no side effects. Patient sleeps 7 hours per night. Impact of disease: emoti End: 22-May-2010 11:12 onal impact-mild. Nutrition: balanced diet and supplemental vitamins. The medical issues the patient is following up for include other (flu like sx., UTI ).Encounter Diagnosis: Urinary tract infection, site not specified (599.0), Abdominal Pain,General (789.07), Elevated LFT (790.6) [facility] Office Visit On: 16-May-2010 11:01 Encounter Diagnosis: INFLUENZA W/MANIFESTATION NEC (487.8) End: 16-May-2010 11:02 [facility] Office Visit On: 16-May-2010 10:22 Encounter Reason: Flu like symptoms - The onset of the flu like symptoms has been acute and they have been occurring in a persistent pattern for 24 hours. The course has been constant. The flu like symptoms are described End: 16-May-2010 10:51 as moderate. Note for Flu like symptoms: fever 102 F. myaglia. had flu shot 10- 10. headache worse with fever. advil relief fever. advil help headache. no stiff neck. off embrel for 3 months. Encounter Diagnosis: INFLUENZA W/MANIFESTATION NEC (487.8) [facility] Office Visit On: 17-Apr-2010 10:46 Encounter Reason: Follow up ER - Reason for hospitalization note: (UTI). Patient has been compliant with instructions. Current medication use: no side effects, compliant with dosing regimen and considered effective by pa End: 17-Apr-2010 11:20 tient. The patient feels well with no complaints, has good energy level and is sleeping well. Patient sleeps 8 hours per night. Nutrition: balanced diet.Encounter Diagnosis: Dysuria (788.1) [facility] Office Visit On: 28-Mar-2010 11:20 Encounter Diagnosis: Hypokalemia (276.8) End: 28-Mar-2010 11:24 [facility] Phone Encounter On: 27-Mar-2010 12:15 Encounter Diagnosis: Rheumatoid arthritis (714.0) End: 27-Mar-2010 12:17 [facility] Office Visit On: 10-Mar-2010 10:33 Encounter Reason: Rib pain, [ADDITIONAL REASON] Fever - The onset of the fever has been gradual and has been occurring in a persistent pattern for days. The course has been constant. The patient has a temperature of up to 102 F. End: 10-Mar-2010 11:39 The symptoms have been associated with cough. Encounter Diagnosis: PNEUMONIA, ORGANISM UNSPECIFIED (486.), Headache (784.0), Cough (786.2), SYMPTOM, PAIN, PRECORDIAL (786.51), SYMPTOMS INVOLVING RESPIRATORY SYSTEM AND OTHER CHEST SYMPTOMS; SHORTNESS OF BREATH (786.05), Abnormal Lung Sounds/Rales (786.7) [facility] Office Visit On: 07-Mar-2010 9:11 Encounter Reason: Follow up acute care visit - The patient does not feel well. Patient has been compliant with instructions. Current medication use: no side effects, compliant with dosing regimen and not considered effec End: 07-Mar-2010 13:50 tive by patient. Patient sleeps 7 hours per night. Nutrition: balanced diet. The medical issues the patient is following up for include All identified problems below and other (bronchitis).Encounter Diagnosis: Wheezing (786.07), Cough (786.2), BRONCHITIS, NOT SPECIFIED ACUTE OR CHRONIC (490.) [facility] Phone Encounter On: 27-Feb-2010 10:53 Encounter Diagnosis: Hypokalemia (276.8) End: 27-Feb-2010 10:55 [facility] Office Visit On: 24-Feb-2010 9:04 Encounter Reason: Cough - The onset of the cough has been sudden and has been occurring in a persistent pattern for 6 days. The course has been increasing. The cough is characterized as productive of mucoid sputum. The a End: 24-Feb-2010 9:28 mount of sputum produced is less than a half a cup per day. The cough occurs all the time. The symptoms have been associated with fever (99.3) and wheezing, while the symptoms have not been associated w ith chest pain, headache, hoarseness or runny nose.Encounter Diagnosis: BRONCHITIS, NOT SPECIFIED ACUTE OR CHRONIC (490.), Cough (786.2), Wheezing (786.07) [facility] Office Visit On: 03-Feb-2010 12:46 Encounter Reason: Injections - The medication the patient is here to receive is other (flu).Encounter Diagnosis: Need for prophylactic vaccination and inoculation against influenza (V04.81) End: 03-Feb-2010 16:28 [facility] Office Visit On: 31-Jan-2010 10:58 Encounter Reason: Injections - The medication the patient is here to receive is other (flu).Encounter Diagnosis: Need for prophylactic vaccination and inoculation against influenza (V04.81) End: 31-Jan-2010 11:05 [facility] Phone Encounter On: 12-Dec-2009 8:19 [facility] End: 12-Dec-2009 8:20 Phone Encounter On: 05-Aug-2009 12:13 [facility] End: 05-Aug-2009 12:15 Office Visit On: 25-Jul-2009 13:20 Encounter Reason: Follow up for chronic medical issues - The patient does not feel well and has decreased energy level. Patient has been compliant with instructions. Current medication use: experiencing side effects (?ac End: 25-Jul-2009 14:19 hes and pains and weight gain from lopressor) and compliant with dosing regimen. Patient sleeps 7 hours per night. Impact of disease: emotional impact-mild. Nutrition: balanced diet and supplemental vit amins. The medical issues the patient is following up for include cardiac issues ,high blood pressure ,high cholesterol and other (RA, hypokalemia). 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 The sinusitis/ has no relieving factors. Associated features include The symptoms have been associated with End: 28-Mar-2009 12:04 cough ,nasal discharge/stuffy nose and sinus pain. Note for Sinusitis/: yellow green nasal drainage. Encounter Diagnosis: SYMPTOMS INVOLVING RESPIRATORY SYSTEM AND OTHER CHEST SYMPTOMS; SHORTNESS OF BREATH (786.05), BRONCHITIS, NOT SPECIFIED ACUTE OR CHRONIC (490.) [facility] Office Visit On: 25-Jan-2009 14:14 Encounter Reason: Follow up ER - Reason for hospitalization note: (laceration ). Patient has been compliant with instructions. Current medication use: no side effects and compliant with dosing regimen. The patient feels End: 25-Jan-2009 14:39 well with no complaints ,has good energy level and is sleeping well. Patient sleeps 7 hours per night. Impact of disease: emotional impact-mild. Nutrition: balanced diet and supplemental vitamins. [facility] Office Visit On: 11-Jan-2009 13:33 Encounter Diagnosis: Unspecified Diagnosis End: 11-Jan-2009 15:45 [facility] Office Visit On: 02-Jul-2008 13:15 Encounter Reason: Upper respiratory infection - The duration of the symptoms are 1 week The course has been constant. The upper respiratory infection has no relieving factors. Associated features include nasal discharge/ End: 02-Jul-2008 17:47 stuffy nose and sinus pain. No previous evaluations were reported. Encounter Diagnosis: BRONCHITIS, NOT SPECIFIED ACUTE OR CHRONIC (490.), Wheezing (786.07), Cerumen impaction (380.4) [facility] Office Visit On: 18-May-2008 10:06 Encounter Reason: Follow up acute care visit - The patient feeling better since last seen and improving. Patient has been compliant with instructions. Current medication use: no side effects ,compliant with dosing regime End: 18-May-2008 10:29 n and considered effective by patient. Patient sleeps 7 hours per night. Impact of disease: emotional impact-mild. Nutrition: balanced diet. The medical issues the patient is following up for include high blood pressure. Encounter Diagnosis: Hypercholesteremia (272.0), Impaired fasting glucose (790.21), Hypokalemia (276.8), Acute sinusitis, unspecified (461.9) [facility] Phone Encounter On: 07-May-2008 8:30 [facility] End: 07-May-2008 8:31 Office Visit On: 04-May-2008 7:26 Encounter Reason: Dizziness/ - The onset of the dizziness/ has been variable and has been occurring in an intermittent pattern for 1 months. The course has been recurrent. The dizziness/ is characterized as lightheadedne End: 04-May-2008 8:02 ss (says feel like is going to faint ). Encounter Diagnosis: Mitral Valve Prolapse (746.9), GENERAL SYMPTOMS; SYNCOPE AND COLLAPSE (780.2), Hypertension,benign(401.1), Hypertension with LVH (402.90), Stress Reaction (308.4), Chest pain (786.59) [facility] Nurse Visit (Non-[place]) On: 20-Mar-2008 11:35 Encounter Diagnosis: Need for prophylactic vaccination and inoculation against influenza (V04.81) End: 20-Mar-2008 11:37 [facility] Office Visit On: 28-Feb-2008 14:10 Encounter Reason: Cough - The onset of the cough has been 3 weeks ago. The cough is characterized as productive of mucoid sputum. The amount of sputum produced is scanty. The cough occurs all the time. The symptoms have End: 28-Feb-2008 14:21 been associated with hoarseness. the color of the sputum is yellowish. Encounter Diagnosis: BRONCHITIS, NOT SPECIFIED ACUTE OR CHRONIC (490.) [facility] Error Encounter On: 07-Jul-2007 13:07 [facility] End: 07-Jul-2007 15:05 Office Visit On: 06-Jul-2007 13:40 Encounter Reason: Follow up acute care visit - The patient feeling better since last seen. Patient has been compliant with instructions. Current medication use: no side effects. Patient sleeps 8 hours per night. Impact o End: 06-Jul-2007 14:34 f disease: no overall impact. Nutrition: balanced diet. The medical issues the patient is following up for include All identified problems below and cellulitis (right lower leg). , [ADDITIONAL REASON] Follow up, Laboratory Test Results - Date: (07/05/07). Encounter Diagnosis: Cellulitis and abscess of leg, except foot (682.6), Hypertension,benign(401.1) [facility] Office Visit On: 05-Jul-2007 13:35 Encounter Reason: Skin lesion - The skin lesion appeared rapidly and has been occurring for 1 weeks. It has been increasing in size. The skin lesion is characterized as red and weeping. The skin lesion is located on the End: 05-Jul-2007 15:27 face (spot on face) ,the lower extremity (right lower leg) and the upper extremity (right hand knuckle). There has been associated fatigue and mucous membrane lesions (scabbed inside nares), while there has been no alopecia ,anorexia ,chills ,fever ,itching ,kidney disease ,liver disease ,loss of sensation ,lymphadenopathy or malaise. Note for Skin lesion: Pt notes she had been taking embrel and she feels this is reoccuring. Encounter Diagnosis: Cellulitis and abscess of leg, except foot (682.6) [facility] Historical Summary On: 03-Jun-2007 9:57 [facility] End: 03-Jun-2007 10:03 Office Visit On: 08-Feb-2007 16:19 Encounter Reason: Follow up acute care visit - The patient feeling better since last seen and improving. Patient has been compliant with instructions. Current medication use: no side effects and compliant with dosing reg End: 08-Feb-2007 21:46 imen. The medical issues the patient is following up for include cellulitis (of right arm/elbow/staph). Note for Follow up acute care visit: still red and tender to touch, [place] took out cyst and dr sifuentesned it.- she is doing much better and no side effects of antiobitoicEncounter Diagnosis: Cellulitis of arm (682.3), Need for prophylactic vaccination and inoculation against influenza (V04.81) [facility] Office Visit On: 01-Feb-2007 16:36 Encounter Reason: Follow up hospital - Reason for ER visit: note: (cellulitis of right forearm). The patient feels well with minor complaints (arm feels better except the main site of bite is very red and inflamed yet) , End: 01-Feb-2007 22:46 has decreased energy level and is sleeping well. Patient has been compliant with instructions. Current medication use: no side effects ,experiencing side effects ,has decreased dose ,has increased dose ,compliant with dosing regimen ,non-compliant with dosing regimen ,considered effective by patient and not considered effective by patient. Hospital procedures performed were other (IV, labs). Encounter Diagnosis: Cellulitis of arm (682.3) [facility] Office Visit On: 25-Jan-2007 9:59 [facility] End: 26-Jan-2007 7:12 Office Visit On: 24-Jan-2007 9:58 Encounter Diagnosis: Cellulitis of arm (682.3), immunosuppression End: 24-Jan-2007 11:01 [facility] Office Visit On: 30-Sep-2006 10:03 Encounter Reason: Well Women Exam - The patient feels well with minor complaints ,has good energy level and is sleeping well. Pap smear: history of abnormal pap (x1 over 30 yrs ago) and date of last pap: (1 or 2 yrs ago) End: 30-Sep-2006 11:06 . Contraceptive history: The patient is not using any method of contraception at this time. Patient exercises a weekly. The patient's libido is normal. The patient reports that she does not perform odalys y breast self exam. Calcium intake includes 1200 mg daily supplment. Previous evaluations: cervical treatment (unspecified). Encounter Diagnosis: Well Women Exam, No Pap (V72.31) (Mammo) [facility] Office Visit On: 26-Aug-2006 15:17 Encounter Reason: new patient female physical - Last seen between 6-12 months ago. General health: feels well with minor complaints ,has good energy level and is sleeping well. The patient's appetite is normal. Nutrition End: 26-Aug-2006 16:14 : normal/adequate. Exercises 2 days per week. Sleeps on average 7 hours per night. Normal bowel and bladder habits. Safety measures include appropriate use of safety belts and home smoke detectors. Ther e are no current emotional problems. screening, colonoscopy (2005) ,screening, mammography (2005) and screening, Pap smear (2005). Note for new patient female physical: rash on foote had a 2-3 yr, look same cream help, now better but not gone, not use cream alot, biopsy, left shoulder rotator tearEncounter Diagnosis: Rheumatoid arthritis (714.0), arthritis,unspecified (716.90), Acute bronchitis (466.0), Headache (784.0), Mitral Valve Prolapse (746.9), Unspecified hearing loss (389.9), Hypertension,benign(401.1), PNEUMONIA, ORGANISM UNSPECIFIED (486.), Sinusitis,chronic (473.9), Unspecified disorder of skin and subcutaneous tissue (709.9), Rheumatoid Arthritis 714.89 (Renamed from RHEUMATOID AORTITIS (714.89)), Hypercholesteremia (272.0), Well Women Exam, No Pap (V72.31) (Mammo), Hematuria (599.7) [facility] Historical Summary On: 12-Aug-2006 15:22 [facility] End: 12-Aug-2006 15:31 Payers [employer]are[employer]Y [employer]; 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
--- OUTSIDE RECORDS SUMMARY | 2018-07-07 08:21 | XMS RPT_ITS | Continuity of Care Document ---
:1940 Author Organization [facility] Address [address] [facility] [address] [place] [address] Phone Care Team Providers Name Role Phone [...] MD, Dana M Start : 29-Jun-2017 Active N-Ippkwlewlzbz-Nyicw 7.5-90.314 MG Oral Capsule 1 (one) Capsule [...] 20-May-2017 End : 29-Jun-2017 Inactive Comments:called to [facility] in [place], [phone] Medrol 4 MG Oral Tablet Therapy Pack [...] End : 10-Mar-2010 Discontinued CALCIUM + D, 300-835RO-CNFR (Oral Tablet) 2 qd for 0 days [...] days Quantity: 60 {Tablet} Refills: 3 Ordered:29-Jun-2014 aDnisha Dawson LPN Start : 20-Nov-2013 End : [...] Arthritis (M19.90, 716.90) Comments: Dr. Garcia in [place] stable off meds now doign well last [...] directly onto right side, onto deck into [facility] has swelling and ecchymosis Status: [...] for Tdap vaccination (Renamed from Need for unoriadzft-ocwalnr-whowfywmc (Tdap) vaccine, adult/adolescent) (Z23, V06.1) Status: Resolved [...] VAC ADLT/IMUMNOSPR, SBC/INTRM Date: 07-Jan-2015 Completed 07-Jan-2015 (38365) Comments: Lot:[id number]:05/01/16Dose:0.5mgRoute:imSite:ganga Roberts By:FRANCA given on 01/03/15VIS signed Colonoscopy Completed Comments: 2005 colonoscopy Completed Comments: Dr Bailey - around age 56 or 66 D&C to get Completed Comments: x3 PACEMAKER IMPLANTATION (98490) Completed Comments: dual chamber 06-29-[address] [facility] [address] Fleming ROTATOR CUFF REPAIR Completed Comments: Left, July 31 2005, Dr Josue Tonsillectomy Completed Tubal Ligation Completed Date Value Details 18-Jan-2018 Cardiology Visit Report Result: Comments: See Note; NOTES: [facility] [place] [address] OFFICE VISIT Date of Service: 01/18/18 MR#: [id number] Acct: [id number] Name: MALI WALDEN Ruchi bazzi #: [id number] : 1940 Provider: ELISE Bah Age/Sex: 77/F [facility] Status: Signed HPI HPI Details: MALI WALDEN, [...] mg PO DAILY 06/08/17 [History Confirmed 01/18/18] [place]-3 Fatty Acids/Fish Oil [Fish Oil 1,000 mg [...] Clear to Auscultation Cardio Palpation: normal P AR Rate: regular rate Rhythm: regular rhythm Heart [...] rhythm of AAI pacing at 98 ppm, FRENCH BINDER=0%, AP=96.2%, and battery life estimated to be [...] CT w/CCTA Result: Comments: See Note; NOTES: [facility] Imaging Services [address] [place] [address] w/CCTA MR#: [id number] Acct: [id number] Name: MALI WALDEN Rep #: [id number] : 1940 F 77 From: Archie Alvares MD PCP: Diana Troncoso MD Status: REG CLI Study: Limited Chest CT w/CCTA Date of Exam: 12/16/17 Exam# [id number] Ordering Dr: Diana Troncoso MD STUDY: CT [...] Archie Alvares MD at 9:03 EDT Tel [phone], Service support , CC: Diana Troncoso MD Tarper: Signed 02-Dec-2017 Pacemaker Check Result: Comments: See Note; NOTES: [facility] [address] [place] [address] Pacemaker Check Date of Service: 12/01/172006 MR#: [id number] Acct: [id number] Name: EDDIE WALDEN Rep #: [id number] : 1940 From: Nishi Johnson Age/Sex: 77/F [place] [facility] Status: Signed 12/01/172008 <Electronically signed by Nishi Johnson > Date Nishi Johnson 12/02/17 0855<Electronically signed by Manoj Young MD> Cosigner Signature: Date (if applicable) Manoj Young MD CC: 04-Sep-2017 Cardiology Visit Report Result: Comments: See Note; NOTES: [facility] [place] [address] [place] [address] OFFICE VISIT Date of Service: 09/03/17 MR#: [id number] Acct: [id number] Name: MALI WALDEN p #: [id number] : 1940 Provider: Amna Vang Age/Sex: 76/F Location[place] 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 [place] [address] Pacemaker Check Date of Service: 08/20/17 1417 MR#: [id number] Acct: [id number] Name: WALDEN,EDDIE Bean Rep #: [id number] : 1940 From: Nishi Raber Age/Sex: 76/F Location[place] 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 6 wk post implant [...] rhythm shows AAI pacing @ 71 ppm. FRENCH BINDER=0.1%. Estimated battery life 9 yrs. Device and lead measurements stable. Decreased A/V amplitudes with adequate safety margin to preserve battery longevity. Counters cleared. Next remote f/u appt scheduled for in 3 mos. Device Device Date Interviewed: 08/20/17 Follow-up Location: in office Interview Reason: scheduled follow up Manufact urer: Medtronic Name: Fazal GALLOWAY Model: A2DR01 Serial #: [id number] Implant Date: 06/28/17 Year(s): 0 Implant Physician: Dr. Brennan Fleming/[facility] Patient Characteristics Atrial Indication: sick sinus synd gino, Paroxysmal atrial fibrillation Patient Substrate: Arrhythmia Underlying rhythm: Sinus bradycardia Pacemaker Dependent: No Device Characteristics Device: Dual Chamber Type: Pacemaker Remote Follow- Up: [facility] Device Physical Exam Yes Incision well healed Leads Lead #1 Cloth Covered Helmet Puller Lead 1: Medtronic Model Lead 1: 5076/45 Serial# Lead 1: [id number] Date Implanted Lead 1: 06/28/17 Position Lead 1 : RA Lead #2 Cloth Covered Helmet Puller Lead 2: [employer] Model Lead 2: 5076/52 Serial# Lead 2: [id number] Date Implanted Lead 2: 06/28/17 Position Lead [...] Discharge Instruction Result: Comments: See Note; NOTES: [facility] Medical Records Department [address] [place] [address] Instructions for Home/Discharge Instructions 06/29/17 1042 MR#: [id number] Acct: [id number] Name: MALI WALDEN Rep #: [id number] : 1940 76 From: Brennan Fleming MD PCP: Diana Troncoso MD Status: REG [facility] Discharge Diet: No Restrictions Discharge Activity: Return [...] call your doctor's office or Doctor's Registry ([phone]) Call 911 or go to the nearest [...] mg tablet 12.5 mg PO DAILY 06/08/17 [place]-3 Fatty Acids/Fish Oil [Fish Oi l 1,000 mg Capsule] 1 each PO DAILY 06/28/17 Primary Care Physician: Diana Troncoso MD [Primary Care Provider] - When: pacer nurse 06/29/17 1050 <Electronically signed by Brennan Fleming MD&am p;#62; Date Brennan Fleming MD CC: Diana Troncoso MD 29-Jun-2017 Chest 1 View Result: Comments: See Note; NOTES: [facility] Imaging Services [address] [place] [address] Chest 1 View MR#: [id number] Acct: [id number] Name: MALI WALDEN Rep #: [id number] : F 76 From: Liam Arreaga PCP: Diana Troncoso MD Status: [facility] Study: Chest 1 View Date of Exam: 06/29/17 Exam# [id number] Ordering Dr: Brennan Fleming MD STUDY: X-RAY [...] CC: Brennan Fleming MD; Diana Troncoso MD Tarper: Signed 29-Jun-2017 Chest PA and Lateral Result: Comments: See Note; NOTES: [facility] Imaging Services [address] [place] [address] Chest PA and Lateral MR#: [id number] Acct: [id number] Name: MALI WALDEN Rep #: [id number] : 1940 F 76 From: Liam Arreaga PCP: Diana Troncoso MD Status: REG [facility] Study: Chest PA and Lateral Date of Exam: 06/29/17 Exam# [id number] Ordering Dr: Brennan Fleming MD STUDY: X-RAY [...] CC: Brennan Fleming MD; Diana Troncoso MD Tarper: Signed 22-Jun-2017 Office Visit Report Result: Comments: See Note; NOTES: [facility] Services [address] [address] OFFICE VISIT Date of Service: 06/21/17 MR#: [id number] Acct: [id number] Patient: MALI WALDEN Rep #: [id number] : 1940 Provider: Nishi Johnson Age/Sex: 76/F Location: [facility] Status: Signed Comments Summary Comments: Pacemaker instructions, [...] Stress Report Result: Comments: See Note; NOTES: [facility] Cardiovascular Services [address] [place] [address] MR#: [id number] Acct: [id number] Name: MALI WALDEN Rep #: [id number] : [birth year] 76 From: Brennan Fleming MD [...] Vang Date Dictated: 06/15/17921 Date Transcribed: 06/15/17921 Tarper: CO Signed 09-Jun-2017 Cardiology Visit Report Result: Comments: See Note; NOTES: [facility] [address] [place] [address] OFFICE VISIT Date of Service: 06/08/17 MR#: [id number] Acct: [id number] Name: JORGEMALINAY bazzi #: [id number] : 1940 Provider: [place]na Vang Age/Sex: 76/F Location[place] [facility] Status: Signed HPI HPI Details: MALI [...] was in the hospital last month in [place]. She was lightheaded and dizzy. 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 Electronically Signed: Tex Junior DO at 9:39 EST Tel [phone], Service support , CC: Diana Troncoso MD; Katerine Campo DO Tarper: Signed 02-Mar-2017 SCREENING MAMM (CAD), BILAT Result: Comments: See Note; NOTES: [facility] Imaging Services [address] [place] [address] SCREENING MAMM (CAD), BILAT MR#: [id number] Acct: [id number] Name: MALI WALDEN Rep #: [id number] : 1940 F 76 From: Archie Alvares MD PCP: Diana Troncoso MD Status: REG CLI Study: SCREENING MAMM (CAD), BILAT Date of Exam: 03/02/17 Exam# [id number] Ordering Dr: Diana Troncoso MD MA MMOGRAPHY [...] delay biopsy of a clinically suspicious abnormality. [id number] Electronically Signed: Archie Alvares MD at 16:04 EST Tel [phone], Service support , CC: Diana Troncoso MD Tarper: Signed 03-Jan-2017 Inital Evaluation (1) - PT Result: Comments: See Note; NOTES: [facility] Physical Therapy [facility] [address] [place] [address]. [address] [place] [address] Fax REHABILITATION SERVICES INITIAL EVALUATION MR#: [id number] Acct: [id number] Name: MALI WALDEN Rep #: [id number] : 1940 76 From: Moody Tang DPT Referring Dr.: Berto Carrillo MD Status: REG RCR [facility] chilo's Visit Information MALI WALDEN is a [...] gym exercises with increased tolerance. - Pain Medial/case filler ior L knee Pain Intensity (Out of [...] to be FAXED BACK to us at [phone] for Medicare purposes. Please let me know if there are questions or concerns regarding this plan of care . Physician Signature: Date: <Electronically signed by Moody Tang DPT> 01/03/17 1457 CC: Diana Troncoso MD; Berto lawrence MD CLS Signed For Medicare only, by signing this I certify the plan of care. Physicians Signature Date 03-Dec-2016 Carotid Duplex Ultrasound Result: Comments: See Note; NOTES: [facility] Cardiovascular Services [address] [place] [address] Carotid Duplex Ultrasound 12/03/16 1106 MR#: [id number] Acct: [id number] Name: MALI WALDEN Rep #: [id number] : 1940 76 From: Charlie Aragon MD [...] the left vertebral artery. Procedure Carotid Duplex 30278. The exam was diagnostic. Exam performed in department. Interpretation Summary M ild (<50%) stenosis right extracranial internal carotid. Mild (<50%) stenosis left extracranial internal carotid. Flow within the vertebral arteries is antegrade bilaterally. Ordering Physician: Manoj Young Performed By: Rey Sánchez, RVT 12/03/162032 Date Charlie Aragon MD CC: Diana Troncoso MD; Manoj Young MD Date Dictated: 12/03/16 1106 Date Transcr ibed: 12/03/162032 Tarper: Signed 28-Jul-2016 PT D/C Summary (1) Result: Comments: See Note; NOTES: [facility] Physical Therapy [address] [place] [address] Fax [facility]ILITATION [facility] MR#: [id number] Acct: [id number] Name: MALI WALDEN Rep #: [id number] : 1940 75 From: Yolanda Cassidy PT, Cert. MDT Referring Dr.: Diana Troncoso MD Status: REG RCR Insurance: [facility] - PT D/C Summary It has [...] PAIN NOW. 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 Thank you for the referral of this patient. Sincerely, Yolanda Cassidy <Electronically signed by Yolanda Cassidy PT, Cert. MDT> 07/28/16 1143 CC: Diana Troncoso MD TERESSA Signed 26-Jun-2016 Chest PA and Lateral Result: Comments: See Note; NOTES: [facility] Imaging Services [address] [place] [address] Verdana 4d Chest PA and Lateral MR#: [id number] Acct: [id number] Name: MALI WALDEN Vikas Rep #: [id number] : 1940 F 75 From: Rubens Waters MD PCP: Diana Troncoso MD Status: REG CLI Study: Chest PA and Lateral Date of Exam: 06/26/16 Exam# [id number] Ordering Dr: Marleni Kang DO STUDY: X-RAY [...] at 13:11 EST Tel , Service support [phone], CC: Diana Troncoso MD; Marleni Kang DO Tarper: Signed 20-May-2016 Re-Evaluation - PT (1) Result: Comments: See Note; NOTES: [facility] Physical Therapy [facility] [address] [place] [address]. [address] [place], [place] [address] Fax REEVALUATION / MEDICARE RECERTI FICATION Spenser 4d PHYSICAL THERAPY MR#: [id number] Acct: [id number] Name: MALI WALDEN Rep #: [id number] : 1940 75 From: Yolanda Cassidy PT, Cert. 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 Sincerely, Yolanda Cassidy < Electronically signed by Yolanda Cassidy PT, Cert. MDT> 05/20/16 1026 CC: Diana Troncoso MD TERESSA Signed For Medicare only, by signing this I certify the plan of care. _ Physicians Signature Date 07-May-2016 Liver Result: Comments: See Note; NOTES: [facility] Imaging Services [address] [place] [address] Verdana 4d Liver MR#: [id number] Acct: [id number] Name: MALI WALDEN Rep #: [id number] : 1940 F 75 From: Archie Alvares MD PCP: Diana Troncoso MD Status: REG CLI Study: Liver Date of Exam: 05/07/16 Exam# [id number] Ordering Dr: Diana Troncoso MD STUDY: ABDOMINAL [...] Archie Alvares MD at 10:59 EST Tel [phone], Service support [phone], CC: Diana Troncoso MD Tarper: Signed 23-Apr-2016 Inital Evaluation (1) - PT Result: Comments: See Note; NOTES: [facility] Physical Therapy [facility] [address] [place] [address]. [address] [place] [address] Fax REHABILITATION SERVICES INITIAL EVALUATION MR#: [id number] Acct: [id number] Name: MALI WALDEN Rep #: [id number] : 1940 75 From: Yolanda Cassidy PT, Cert. MDT Referring Dr.: Diana Troncoso MD Status: REG RCR [facility] Patient's Visit Information MALI WALDEN is [...] be FAXED BACK to u s at [phone] for Medicare purposes. Please let me know [...] with Pelvis Result: Comments: See Note; NOTES: [facility] Imaging Services [address] [place] [address] Verda 4d Hip 2-3 Views with Pelvis MR#: [id number] Acct: [id number] Name: MALI WALDEN Rep #: [id number] : 1940 F 75 From: Archie Alvares MD PCP: Diana Troncoso MD Status: REG CLI Study: Hip 2-3 Views with Pelvis Date of Exam: 02/10/16 Exam# [id number] Ordering Dr: Diana Troncoso MD STUDY: X-RAY [...] Archie Alvares MD at 13:03 EDT Tel [phone], Service support [phone], CC: Diana Troncoso MD Tarper: Signed 10-Feb-2016 L/S Spine Min 4 Views Result: Comments: See Note; NOTES: [facility] Imaging Services [address] [place] [address] Verpanther 4d L/S Spine Min 4 Views MR#: [id number] Acct: [id number] Name: MALI WALDEN Rep #: [id number] : 1940 F 75 From: Archie Alvares MD PCP: Diana Troncoso MD Status: REG CLI Study: L/S Spine Min 4 Views Date of Exam: 02/10/16 Exam# [id number] Ordering Dr: Diana Troncoso MD S TUDY: [...] Archie Alvares MD at 12:46 EDT Tel [phone], Service support [phone], CC: Diana Troncoso MD Tarper: Signed 22-Jan-2016 Bilat Scrn Digital AND CAD Result: Comments: See Note; NOTES: [facility] Imaging Services [address] [facility] [address] Verdana 4d Bilat Scrn Digital AND CAD MR#: [id number] Acct: [id number] Name: MALI WALDEN Rep #: [id number] : 1940 F 75 From: Archie Alvares MD PCP: Diana Troncoso MD Status: REG CLI Study: Bilat Scrn Digital AND CAD Date of Exam: 01/22/16 Exam# [id number] Ordering Dr: Dereck Troncoso MD MAMMOGRAPHY - [...] delay biopsy of a clinically suspicious abnormality. [id number] Electronically Signed: Archie Alvares MD at 10:36 EDT T [phone], Service support [phone], CC: Diana Troncoso MD Tarper: Signed 08-Feb-2015 Emergency Department Summary Result: Comments: See Note; NOTES: [facility] Medical Records Department [address] [place] [address] Emergency Department Summary MR#: [id number] Acct: [id number] Name: MALI WALDEN Rep #: [id number] : 1940 74 From: Solomon Morse MD [...] C: Diana Ribeiro MD T: NTS JOB: [id number] 02/08/15 0119 <Electronically signed by Solomon Morse MD> Date Solomon Morse MD Cosigner Signature (If Indicated): Date CC: Diana Troncoso MD; Naga Ribeiro Date Dictated: 02/07/151633 Date Transcribed: 02/07/151633 Tarper: Signed 07-Feb-2015 Discharge Instruction Result: Comments: See Note; NOTES: [facility] Medical Records Department [address] [place] [address] Discharge Instruction 02/07/151630 MR#: [id number] Acct: [id number] Name: MALI WALDEN Rep #: [id number] : 1940 74 From: Solomon Morse MD [...] problems, contact your doctor. Call Doctors Registry ([phone]) or report to the closest Emergency Room. Call 911 if necessary. 02/07/15 1632 <Electronically signed by Solomon Morse MD> Date Solomon Morse MD Cosigner Signature (If Indicated): Date CC: Diana Troncoso MD 18-Jan-2015 Nuclear Stress Test - Treadmil Result: Comments: See Note; NOTES: [facility] Imaging Services [address] [place] [address] STRESS TEST REPORT 01/18/15 0925 MR#: [id number] Acct: [id number] Name: MALI WALDEN Rep #: [id number] : 1940 74 From: Manoj Young MD [...] LVEF of 67%. Manoj Young MD T: [facility] JOB: [id number] 01/18/15 1221 <Chapito jara signed by Manoj Young MD> Date Manoj Young MD CC: Diana Troncoso MD; Manoj Young MD Date Dictated: 01/18/15924 Date Lux scribed: 01/18/15924 Tarper: Signed 16-Jan-2015 Bilat Scrn Digital AND CAD Result: Comments: See Note; NOTES: [facility] Imaging Services [address] [place] [address] Breast Imaging Report MR#: [id number] Acct: [id number] Name: MALI WALDEN Rep #: [id number] : 1940 F 74 From: Archie Alvares MD PCP: Diana Troncoso MD Status: REG CLI Study: Bilat Scrn Digital AND CAD Date of Exam: 01/16/15 Exam# [id number] Ordering Dr: Diana Troncoso MD MAMMOGRAPHY - [...] Archie belle MD at 15:35 EDT Tel [phone], Service support [phone], CC: Diana Troncoso MD Tarper: Signed 16-Dec-2014 Emergency Department Summary Result: Comments: See Note; NOTES: [facility] Medical Records Department [address] [place] [address] Emergency Department Summary MR#: [id number] Acct: [id number] Name: MALI WALDEN Rep #: [id number] : 1940 74 From: George Colvin DO [...] DISPOSITION: Discharged to home in stable condition. Geogre Colvin DO T: NTS JOB: [id number] 12/16/14 1607 <Electronically signed by George Colvin DO> Date George Colvin DO Cosigner Signature (If Indicated): Date CC: Diana Troncoso MD Date D ictated: 12/16/141039 Date Transcribed: 12/16/141039 Tarper: Signed 16-Dec-2014 Discharge Instruction Result: Comments: See Note; NOTES: [facility] Medical Records Department [address] [place] [address] Discharge Instruction 12/16/14 1036 MR#: [id number] Acct: [id number] Name: MALI WALDEN Rep #: [id number] : 1940 74 From: eGorge Colvin DO PCP: Diana Troncoso MD Status: REG ER ED Disposition - Plan for ED Patient: Chief Complaint: Abd Pain Instructions: ED Di verticulitis Prescriptions: Hydrocodone Bitart/Apap 5-325 [[place] 5/325] 1 - 2 tablet PO Q4H [...] problems, contact your doctor. Call Doctors Registry ([phone]) or report to the closest Emergency Room. Call 911 if necessary. 12/16/14 1037 <Electronically signed by George martines DO> Date George Colvin DO Cosigner Signature (If Indicated): Date CC: Diana Troncoso MD 16-Dec-2014 Abdomen/Pelvis without Cont Result: Comments: See Note; NOTES: [facility] Imaging Services [address] [place], [place] [address] CAT Scan Report MR#: [id number] Acct: [id number] Name: MALI WALDEN Rep #: [id number] : 1940 F 74 From: Miguel Tidwell PCP: Diana Trnocoso MD Status: REG ER Study: Abdomen/Pelvis without Cont Date of Exam: 12/16/14 Exam# [id number] Ordering Dr: George Colvin DO STUDY: CT [...] Sagittal and coronal images were reconstructed. [facility]: July 30, 2010 FINDINGS: The visualized lung [...] at 10:32 EDT Tel , Service support [phone], CC: Diana wright MD; George Colvin DO Tarper: Signed 13-Nov-2014 Echocardiogram Complete Result: Comments: See Note; NOTES: [facility] Cardiovascular Services [address] [place] [address] Echo Complete 11/13/14 0720 MR#: [id number] Acct: [id number] Name: MARÍA ELENA WALDEN E Rep #: [id number] : 1940 74 From: Manoj Young MD Attending Dr: Manoj Young MD Status: REG CLI Ordering Dr: Manoj Young MD Date: 11/13/14 Location: [facility] Sex: F C Admitted: Procedure This [...] MD Date Dictated: 11/13/14719 Date Transcribed: 11/13/142054 Tarper: Signed 22-Aug-2014 PT Discharge Summary Result: Comments: See Note; NOTES: [facility] Physical Therapy [facility] [place], [place] [address] Fax REHABILITATION SERVICES DISCHARGE SUMMARY MR#: [id number] Acct: [id number] Name: MALI WALDEN Rep #: [id number] : 1940 73 From: Anibal Decker Referring [...] program and has a membership here at [facility] as she will continue on her own [...] followup. Anibal Decker, PT T: NTS JOB: [id number] <Electronically signed by Anibal Decker > 08/22/14 0746 CC: Signed 02-Jul-2014 Chest PA and Lateral Result: Comments: See Note; NOTES: [facility] Imaging Services [address] [place] [address] Radiology Report MR#: [id number] Acct: [id number] Name: MALI WALDEN Rep #: [id number] : 1940 F 73 From: Rubens Waters MD PCP: Diana Troncoso MD Status: REG CLI Study: Chest PA and Lateral Date of Exam: 07/02/14 Exam# [id number] Ordering Dr: Diana Troncoso MD STUDY: X-RAY [...] at 14:51 EDT Tel , Service support [phone], RAD/Chest PA and Lateral IMPRESSION: No acute pulmonary process, no interval change. Electronically Signed: Jorge Waters MD at 14:51 EDT Tel , Service support [phone], CC: Diana Troncoso MD Tarper: Signed 28-Jun-2014 Inital Evaluation - PT Result: Comments: See Note; NOTES: [facility] Physical Therapy [facility] [place] [address] Fax REHABILITATION SERVICES INITIAL EVALUATION MR#: [id number] Acct: [id number] Name: MALI WALDEN Rep #: [id number] : 1940 73 From: Anibal Decker Referring [...] one fall was on a trip to [place] when the dog walked in front of [...] is a [employer] member here at [employer], but has not been able to get [...] reciprocal heel and toe tapping is good. Iwft-dt-dpqn test is good. Re ciprocal hand tapping [...] will score at least 64/80 on lower [facility] ty functional scale to help show [...] [employer]. Anibal Decker, PT T: NTS JOB: [id number] <Electronically signed by Anibal Decker > 06/28/14 0929 CC: DD: 0 06/27/14 Signed For Medicare only, by signing this I certify the plan of care. Physicians Signature Date 06-Jun-2014 Chest PA and Lateral Result: Comments: See Note; NOTES: [facility] Imaging Services [address] [place] [address] Radiology Report MR#: [id number] Acct: [id number] Name: MALI WALDEN Rep #: [id number] : 1940 F 73 From: Archie Alvares MD PCP: Diana Troncoso MD Status: REG CLI Study: Chest PA and Lateral Date of Exam: 06/06/14 Exam# [id number] Ordering Dr: Jacquelyn Garcia STUDY: X-RAY CHEST [...] acute abnormality is seen. Electronically Signed: Archie lAvares MD at 15:28 EST Tel [phone], Service support [phone], CC: Jacquelyn Garcia; Diana Trocnoso MD Tarper: Signed 09-Apr-2014 Knee 4 or More Views Result: Comments: See Note; NOTES: [facility] Imaging Services [address] [place] [address] Radiology Report MR#: [id number] Acct: [id number] Name: MALI WALDEN Rep #: [id number] : 1940 F 73 From: Rubens Waters MD PCP: Diana Troncoso MD Status: REG CLI Study: Knee 4 or More Views Date of Exam: 04/09/14 Exam# [id number] Ordering Dr: Katerine Campo DO STUDY: X-RAY [...] MD at 12:15 EST , Service support [phone], CC: Diana Troncoso MD; Katerine Campo DO Tarper: Signed 09-Apr-2014 Ribs Unil 2V No CXR Result: Comments: See Note; NOTES: [facility] Imaging Services [address] [place] [address] Radiology Report MR#: [id number] Acct: [id number] Name: MALI WALDEN Rep #: [id number] : 1940 F 73 From: Rubens Waters MD PCP: Diana Troncoso MD Status: REG CLI Study: Ribs Unil 2V No CXR Date of Exam: 04/09/14 Exam# [id number] Ordering Dr: Katerine Campo DO STUDY: X-RAY [...] MD at 12:11 EST , Service support [phone], CC: Diana Troncoso MD; Katerine Campo DO Tarper: Signed 07-Feb-2014 Liver Result: Comments: See Note; NOTES: [facility] Imaging Services [address] [place] [address] Ultrasound Report MR#: [id number] Acct: [id number] Name: MALI WALDEN Rep #: [id number] : 1940 F 73 From: Archie Alvares MD PCP: Diana Troncoso MD Status: REG CLI Study: Liver Date of Exam: 02/07/14 Exam# [id number] Ordering Dr: Jacquelyn Garcia STUDY: ABDOMINAL ULTRASOUND [...] right upper quadrant ultrasound examination. Electronically Signed: Archie Alvares MD at 10:36 ED T Tel [phone], Service support [phone], CC: Jacquelyn Garcia; Diana Troncoso MD Tarper: Signed 25-Sep-2013 Ribs Unil 2V No CXR Result: Comments: See Note; NOTES: [facility] Imaging Services [address] [place] [address] Radiology Report MR#: [id number] Acct: [id number] Name: MALI WALDEN Vikas Rep #: [id number] : 1940 F 72 From: Archie Alvares MD PCP: Diana Troncoso MD Status: REG CLI Study: Ribs Unil 2V No CXR Date of Exam: 09/25/13 Exam# [id number] Ordering Dr: Jacquelyn Garcia STUDY: X-RAY - [...] Archie Alvares MD at 15:44 EDT Tel [phone], Service support [phone], Fax CC: Jacquelyn Garcia; Diana Troncoso MD Tarper: Signed 22-Aug-2013 [employer] Result: Comments: See Note; NOTES: [facility] Imaging Services [address] [place], [place] [address] Breast Imaging Report MR#: [id number] Acct: [id number] Name: MALI WALDEN Rep #: [id number] : 1940 F 72 From: Archie Alvares MD PCP: Diana Troncoso MD Status: REG CLI Exam# [id number] Ordering Dr: Diana Troncoso MD MAMMOGRAPHY - [...] Signed: Corey Monson at 11:24 EDT Tel [phone], Service support [phone], CC: Diana Troncoso MD Tarper: Signed Immunization Name Dates Details Influenza (3 years and up) on: 08-Feb-2007 Comments: given in left deltoid, 0.5cc, lot#[id number], exp.10.17.07 WF Influenza (3 years and up) on: 20-Mar-2008 Comments: Lot #[id number]-6/30/08Site-right deltoidDose0.5mlgiven by Caro Vail LPN Influenza (3 years and up) on: 11-Jan-2009 Comments: Lot #[id number] 4PExp-08/2009Site-Left deltoidgiven by:FLIP Pneumococcal (2 years and up) on: 07-Jan-2015 Comments: Site: Deltoid (Left) Lot #: <Undefined> Pneumococcal conjugate vaccine, 13 valent, IM Comments: winter 2016 [facility] Family History Unknown Family Member Name Dates Details Brother 1 Comments: Bladder CA, prostate, smoker Status: Active Brother 2 Comments: of [place] 66yo, obese Status: Active Daughter 1 Comments: [...] kg/m2 Body Surface Area Calculated 1.76 m2 17-Hym-014963:53 Pulse 58 /min Comments: Pattern: Regular Respiration [...] copy of this report has been sent [phone].PATIENT NOT FASTINGPERFORMED BY: LabCoBristol-Myers Squibb Children's HospitalZxjmzs8821 [facility] [id number] Info rmation: FX [phone] (20681) ALT (SGPT) 47 [iU]/L (Abnormal) Range: 0-32 AST (SGOT) 32 [iU]/L (Normal) Range: 0-40 Alkaline Phosphatase 90 [iU]/L (Normal) Range: 39-117 Bilirubin, Direct 0.19 mg/dL (Normal) Range: 0.00-0.40 Bilirubin, Total 0.7 mg/dL (Normal) Range: 0.0-1.2 Albumin 4.5 g/dL (Normal) Range: 3.5-4.8 Protein, Total 6.8 g/dL (Normal) Range: 6.0-8.5 :20 LDL Cholesterol (Direct) Comments: PATIENT WAS FASTINGPERFORMED BY: VerbalizeItBristol-Myers Squibb Children's HospitalNjangh8177 [facility] [id number] LDL Chol. (Direct) 83 mg/dL (Normal) Range: 0-99 : Written Authorization WAR (Normal) Comments: PATIENT WAS FASTINGPERFORMED BY: Hua KangCorewell Health Blodgett Hospital6370 [facility] [id number] 20 Comments: Written Authorization Received.Authorization received from EDUARDO BATEMAN LPN [id number] by Holley Ma :20 Metabolic Panel, Comments: PATIENT WAS FASTINGPERFORMED BY: LabSsm [facility]1447 [facility] [id number] BY: Hua KangCorewell Health Blodgett Hospital6370 [facility] [id number] [facility] (73132) ALT (SGPT) 38 [iU]/L (Abnormal) Range: 0-32 [...] 8-27 Glucose 126 mg/dL (Abnormal) Range: 65-99 76-Qkq-71833:20 LIPOPROTEIN, BLD, BY NMR Comments: PATIENT WAS FASTINGPERFORMED BY: BN [facility] [address] [id number] BY: CB [facility] Ubvyvt0935 [facility] [id number] (63695) LP-IR Score 66 (Abnormal) Comments: INSULIN RESISTANCE MARKER <--Insulin Sensitive Insulin Resistant--> Percentile in Reference PopulationInsulin Resistance ScoreLP-IR Score Low 25th 50th 75th High <27 27 45 63 >63LP-IR Score is inaccurate if patient is non-fasting. .The LP-IR score is a laboratory developed i [facility] that has beenassociated with insulin resistance and [...] were developed and their performance characteristicsdetermined by [employer]. These assays have not been cleared by [...] 1600 - 2000 Very High > 2000 98-Zkh-55408:24 HEPATIC FUNCTION PANEL Comments: PATIENT WAS FASTINGPERFORMED BY: BN [facility] [address] [id number] BY: CB [facility] Sdzttr1935 [facility] [id number] (60922) ALT (SGPT) 34 [iU]/L (Abnormal) Range: 0-32 AST (SGOT) 30 [iU]/L (Normal) Range: 0-40 Alkaline Phosphatase 102 [iU]/L (Normal) Range: 39-117 Bilirubin, Direct 0.14 mg/dL (Normal) Range: 0.00-0.40 Bilirubin, Total 0.7 mg/dL (Normal) Range: 0.0-1.2 Albumin 4.4 g/dL (Normal) Range: 3.5-4.8 Protein, Total 6.7 g/dL (Normal) Range: 6.0-8.5 02-Hmr-07629:24 LIPOPROTEIN, BLD, BY NMR Comments: PATIENT WAS FASTINGPERFORMED BY: BN [facility] Jxiodfhvoj3989 [facility] [id number] BY: CB [facility] Ntupji5920 [facility] [id number]; fu 8-20 DB (57580) LP-IR Score 64 (Abnormal) Comments: INSULIN RESISTANCE MARKER <--Insulin Sensitive Insulin Resistant--> Percentile in Reference PopulationInsulin Resistance ScoreLP-IR Score Low 25th 50th 75th High <27 27 45 63 >63LP-IR Score is inaccurate if patient is non-fasting. .The LP-IR score is a laboratory developed i [facility] that has beenassociated with insulin resistance and [...] were developed and their performance characteristicsdetermined by [employer]. These assays have not been cleared by [...] 1600 - 2000 Very High > 2000 92-Oys-843808:19 Basic Metabolic Profile (BMP) Comments: Order Date: 07/30/17Order Info: 0667-1 - [facility] [address] [place], [address] GAP 10 (Normal) Range: 5-15 CO2 27.0 [...] A.D.A. criteria.Please note revised GLUCOSE reference range tgwzreugm86/02/2018. 64-Ejp-636435:19 CBC W/Diff, Automated Comments: Order Date: 07/30/17Order Info: 0184-1 - CBCDOrder Info: 41179-5 [facility] [address] [place], [place], [id number] Absolute Lymph 2.02 {X10_3/ul} (Normal) Range: 0.83-4.51 [...] 4.2-5.4 WBC 10.0 K/mm3 (Normal) Range: 4.4-11.0 67-Ahj-733886:19 Erythrocyte Sed Rate Comments: Order Date: 07/30/17Order Info: 0184-1 - CBCDOrder Info: 93900-0 - [facility] Teexujxvel[address] [place], [place], [address] SED RATE 26 mm/h (Normal) Range: 0-30 05-Nbj-602640:59 Urinalysis, Office (79598) UA - LEUKOCYTE ESTERASE Negative (Normal) UA - NITRITE Negative (Normal) URINE UROBILINGN SILVESTRE TIMED Normal mg/dL (Normal) UA - PROTEIN Negative mg/dL (Normal) UA - PH 7 (Normal) UA - BLOOD Negative (Normal) UA - SPECIFIC GRAVITY 1.015 (Normal) UA - KETONES Negative mg/dL (Normal) UA - BILIRUBIN Negative (Normal) UA - GLUCOSE Negative (Normal) 2-Nhe-796547:01 Basic Metabolic Profile (BMP) Comments: [facility] [address] [place], [place], [address] GAP 7 (Normal) Range: 5-15 CO2 26.0 [...] Comments: Please note revised GLUCOSE reference range huikfhecz28/02/2018. 5-Chz-961616:01 CBC-Complete Blood Cnt No Diff Comments: [facility] [address] [place], [place], [address] MPV 10.5 fL (Normal) Range: 6.2-12.0 PLT [...] Range: 4.4-11.0 :01 Prothrombin Time w/INR Comments: [facility] [address] [place], [place], [address] INR 1.0 (Normal) PROTIME 12.7 s (Normal) Range: 11.7-14.9 7-Tnn-507226:01 Urinalysis, Complete Comments: How was Urine Obtained? [employer] TO [facility] Fdmdenoykz[address] [place], [place], [id number] MUCUS, URINE 0 SEEN {/hpf} (Normal) BACTERIA [...] (Normal) CLARITY Clear (Normal) COLOR Yellow (Normal) 5-Cvg-880142:37 Urinalysis, Office (37872) UA - LEUKOCYTE ESTERASE Negative (Normal) UA - NITRITE Negative (Normal) URINE UROBILINGN SILVESTRE TIMED 2 mg/dL (Normal) UA - PROTEIN Negative mg/dL (Normal) UA - PH 7.0 (Normal) UA - BLOOD Negative (Normal) UA - SPECIFIC GRAVITY 1.010 (Normal) UA - KETONES Negative mg/dL (Normal) UA - BILIRUBIN Negative (Normal) UA - GLUCOSE Negative (Normal) 91-Kzr-803978:00 URINE RASHAD CULTURE-SILVESTRE COL Comments: PATIENT NOT FASTINGPERFORMED BY: Verbal[employer]It Zhlnqa2803 [facility] [id number] Information: SRC:UC COUNT (35720) Antimicrobial MIHEAD (Normal) Comments: S = Susceptible; [...] mL (Abnormal) Urine Final report Culture,Comprehensive (Abnormal) 34-Wep-06864:06 Urinalysis, Office (12450) UA - LEUKOCYTE ESTERASE Large (Normal) UA [...] METABOLIC PANEL, Comments: PATIENT WAS FASTINGPERFORMED BY: VerbalizeIt[address] [id number] BY: VerbalizeItSherry [place] 4082470 [facility] [id number] COMPREHENSIVE (53389) ALT (SGPT) 45 [iU]/L (Abnormal) Range: 0-32 [...] Comments: PATIENT WAS FASTINGPERFORMED BY: BN [facility] [address] [id number] BY: CB [facility] Axcuvb4169 [facility] [id number] (33074) LP-IR Score 52 (Abnormal) Comments: INSULIN RESISTANCE MARKER <--Insulin Sensitive Insulin Resistant--> Percentile in Reference PopulationInsulin Resistance ScoreLP-IR Score Low 25th 50th 75th High <27 27 45 63 >63LP-IR Score is inaccurate if patient is non-fasting. .The LP-IR score is a laboratory developed i [facility] that has beenassociated with insulin [...] were developed and their performance characteristicsdetermined by [employer]. These assays have not been cleared by [...] 2000 Very High > 2000 23-Aug-20179:42 TSH (53207) Comments: PATIENT WAS FASTINGPERFORMED BY: Hua Kang[address] [id number] BY: LabCo Jgkosh4429 Xavier RoadDublin [place] [id number] TSH 2.070 {uIU/mL} (Normal) Range: 0.450-4.500 2-Ezo-412227:34 Vitamin B-12 (cyanocobalamin) Comments: these ones today; PATIENT NOT FASTINGPERFORMED BY: Lab[address] [id number] BY: LabCo Osassx0973 Xavier RoadDublin [place] [id number] (15172) Vitamin B12 677 pg/mL (Normal) Range: 211-946 5-Kuh-082405:34 RPR (RAPID PLASMA Comments: PATIENT NOT FASTINGPERFORMED BY: VerbalizeIt[address] [id number] BY: LabCo Yxdhdv3110 Xavier RoadDublin [place] [id number] REAGIN) (07482) RPR Non Reactive (Normal) 0-Gbk-329789:34 Methymalonic Acid, Serum Comments: PATIENT NOT FASTINGPERFORMED BY: Hua Kang[address] [id number] BY: LabCo Nsagmi8548 Xavier RoadDublin [place] [id number] Information: I02137, 496549 (00346) Methylmalonic Acid, Serum 176 nmol/L (Normal) Range: 0-378 7-Foq-792616:18 HEPATIC FUNCTION PANEL Comments: PATIENT WAS FASTINGPERFORMED BY: [address] [id number] BY: LabCo Vwmhvs6888 Xavier RoadDublin [place] [id number] (44039) ALT (SGPT) 36 [iU]/L (Abnormal) Range: 0-32 AST (SGOT) 32 [iU]/L (Normal) Range: 0-40 Alkaline Phosphatase, S 104 [iU]/L (Normal) Range: 39-117 Bilirubin, Direct 0.13 mg/dL (Normal) Range: 0.00-0.40 Bilirubin, Total 0.5 mg/dL (Normal) Range: 0.0-1.2 Albumin, Serum 4.6 g/dL (Normal) Range: 3.5-4.8 Protein, Total, Serum 6.7 g/dL (Normal) Range: 6.0-8.5 9-Ugh-249076:18 LIPOPROTEIN, BLD, BY NMR Comments: PATIENT WAS FASTINGPERFORMED BY: BN [facility] Glwnvuowde8179 [facility] [id number] BY: CB [facility] Yecbut5271 [facility] [id number] (73198) LP-IR Score 66 (Abnormal) Comments: INSULIN RESISTANCE MARKER <--Insulin Sensitive Insulin Resistant--> Percentile in Reference PopulationInsulin Resistance ScoreLP-IR Score Low 25th 50th 75th High <27 27 45 63 >63LP-IR Score is inaccurate if patient is non-fasting. .The LP-IR score is a laboratory developed i [facility] that has beenassociated with insulin resistance and [...] 1600 - 2000 Very High > 2000 01-Fdu-949244:25 CBC With Differential/Platelet Comments: PATIENT NOT FASTINGPERFORMED BY: LabB[facility] Pfsmmh2878 [facility] [id number] Information: collect by nurse SRC: Immature Grans [...] 3.77-5.28 WBC 6.9 {x10E3/uL} (Normal) Range: 3.4-10.8 46-Bhh-094996:25 Comp. Metabolic Panel (14) Comments: PATIENT NOT FASTINGPERFORMED BY: LabCoBristol-Myers Squibb Children's HospitalYwycna2944 [facility] [id number] ALT (SGPT) 37 [iU]/L (Abnormal) Range: 0-32 [...] umol/L (Normal) Comments: PATIENT NOT FASTINGPERFORMED BY: [address] Mxdpbx2052 [facility]adigmFormerly [facility] [id number] 0:25 Plasma Range: 0.0-15.0 Microalb/Creat Ratio, Randm Ur Comments: PATIENT NOT FASTINGPERFORMED BY: [address] Hycwmt8166Figo Pet InsuranceFormerly [facility] [id number] Microalb/Creat Ratio <5.6 {mg/g_creat} (Normal) Range: 0.0-30.0 Microalbumin, Urine <3.0 ug/mL (Normal) Creatinine, Urine 53.7 mg/dL (Normal) : Urinalysis, Routine Comments: PATIENT NOT FASTINGPERFORMED BY: [employer] IT Infrastructure SolutionsEllett Memorial Hospital [id number] Microscopic Examination MICNIP (Normal) Comments: Microscopic not indicated and not performed. Nitrite, Urine Negative (Normal) Urobilinogen,Semi-Qn 0.2 mg/dL (Normal) Range: 0.2-1.0 Bilirubin Negative (Normal) Occult Blood Negative (Normal) Ketones Negative (Normal) Glucose Negative (Normal) Protein Negative (Normal) WBC Esterase Negative (Normal) Appearance Clear (Normal) Urine-Color Yellow (Normal) pH 7.0 (Normal) Range: 5.0-7.5 Specific [place] 1.014 (Normal) Range: 1.005-1.030 : Urine Culture, Routine Comments: PATIENT NOT FASTINGPERFORMED BY: [address] Xuvxdg0013 [facility]Ellett [facility] Hospital [id number] Result 1 LESS (Normal) Comments: Culture shows less than 10,000 colony forming units of bacteria permilliliter of urine. This colony count is not generally consideredto be clinically significant. Urine Culture, Routine Final report (Normal) 52-Enh-866436:59 URINE RASHAD CULTURE-IDENTIFICATN Comments: PATIENT NOT FASTINGPERFORMED BY: [facility]6370 [facility] [id number] Information: SRC: (78681) Antimicrobial MIHEAD (Normal) Comments: S = Susceptible; [...] mL (Abnormal) Urine Final report Culture,Comprehensive (Abnormal) 4-Hyk-672428:01 URINE RASHAD CULTURE-IDENTIFICATN Comments: PATIENT NOT FASTINGPERFORMED BY: [place] [address] [facility] [id number] Information: SRC: (28054) Result 1 NG36 (Normal) Comments: No growth in 36 - 48 hours. Urine Culture,Comprehensive Final report (Normal) 19-Nov-20169:11 Urinalysis, Office (46459) UA - LEUKOCYTE ESTERASE Large (Normal) UA - NITRITE Positive (Normal) URINE UROBILINGN SILVESTRE TIMED 2 mg/dL (Normal) UA - PROTEIN 30 mg/dL (Normal) UA - PH 6 (Abnormal) UA - BLOOD Negative (Normal) UA - SPECIFIC GRAVITY 1.005 (Normal) UA - KETONES 15 mg/dL (Abnormal) UA - BILIRUBIN Large (Normal) UA - GLUCOSE 100 (Abnormal) 38-Chx-49542:16 CBC W/Diff, Automated Comments: [facility] [address]xtds[address] [place], [address] Absolute Lymph 1.78 {X10_3/ul} (Normal) Range: 0.83-4.51 [...] 4.2-5.4 WBC 5.7 K/mm3 (Normal) Range: 4.4-11.0 2-Alw-028581:00 HSV CULTURE SCREEN 536687 Comments: PERFORMED BY: [employer] [facility] [id number] Information: SRC:FOE (77938) HSV Culture Without Typing Negative (Normal) 26-Lfg-556568:58 URINE RASHAD CULTURE-IDENTIFICATN Comments: PATIENT NOT FASTINGPERFORMED BY: [employer] 1 [facility] [id number] Information: SRC:ADWOA (14275) Antimicrobial MIHEAD (Normal) Comments: S = Susceptible; [...] mL (Abnormal) Urine Final report Culture,Comprehensive (Abnormal) 85-Bha-58970:21 Urinalysis, Office (96867) UA - LEUKOCYTE ESTERASE Moderate (Normal) UA - NITRITE Negative (Normal) URINE UROBILINGN SILVESTRE TIMED 2 mg/dL (Normal) UA - PROTEIN 30 mg/dL (Normal) UA - PH 6.0 (Normal) UA - BLOOD Hemolyzed Large (Normal) UA - SPECIFIC GRAVITY 1.020 (Normal) UA - KETONES Negative mg/dL (Normal) UA - BILIRUBIN Negative (Normal) UA - GLUCOSE Negative (Normal) :32 HgA1C , Office (98475) HgA1C , Office 5.4 % (Normal) Range: 4.6 - 7.1 :36 T4, FREE (THYROXINE) (74981) Comments: PATIENT NOT FASTINGPERFORMED BY: VerbalizeItCarlsbad Medical CenterJsbxto7676 [facility] [id number] T4,Free(Direct) 1.34 ng/dL (Normal) Range: 0.82-1.77 29-Vic-555290:36 TSH (98934) Comments: PATIENT NOT FASTINGPERFORMED BY: [address] [employer] 1 [facility] [id number] TSH 2.400 {uIU/mL} (Normal) Range: 0.450-4.500 27-Ufr-415944:36 HEPATIC FUNCTION PANEL Comments: PATIENT NOT FASTINGPERFORMED BY: [address] [employer] 1 [facility] [id number] (69742) ALT (SGPT) 59 [iU]/L (Abnormal) Range: 0-32 AST (SGOT) 35 [iU]/L (Normal) Range: 0-40 Alkaline Phosphatase, S 96 [iU]/L (Normal) Range: 39-117 Bilirubin, Direct 0.15 mg/dL (Normal) Range: 0.00-0.40 Comments: Please note reference interval change Bilirubin, Total 0.6 mg/dL (Normal) Range: 0.0-1.2 Albumin, Serum 4.4 g/dL (Normal) Range: 3.5-4.8 Protein, Total, Serum 6.5 g/dL (Normal) Range: 6.0-8.5 :36 Magnesium (78950) Comments: PATIENT NOT FASTINGPERFORMED BY: VerbalizeItBristol-Myers Squibb Children's HospitalLhlubq7[address] [place] [address] [id number] Magnesium, Serum 2.0 mg/dL (Normal) Range: 1.6-2.3 :36 Metabolic Panel, Basic Comments: PATIENT NOT FASTINGPERFORMED BY: VerbalizeItBristol-Myers Squibb Children's HospitalUckthv66[address] [place] [address] [id number] (53628) Calcium, Serum 9.9 mg/dL (Normal) Range: 8.7-10.3 [...] three months (approximately); PATIENT WAS FASTINGPERFORMED BY: Hua KangMeghan V[place] 123077 [facility] [id number] BY: Hua KangSara [place] 7[address]8770 [facility] [id number] (35810) T4,Free(Direct) 1.23 ng/dL (Normal) Range: 0.82-1.77 :32 TSH (03962) Comments: in three months (approximately); PATIENT WAS FASTINGPERFORMED BY: [employer] LabCoMedallion Learning [address] [id number] BY: LabCoBristol-Myers Squibb Children's HospitalJnaghy2802 [facility] [id number] TSH 3.620 {uIU/mL} (Normal) Range: 0.450-4.500 :32 LIPOPROTEIN, BLD, BY NMR Comments: in three months (approximately); PATIENT WAS FASTINGPERFORMED BY: [employer] [facility] R[address]hudanpt[address] [id number] BY: Labtrgt.usUztzus8794 [facility] [id number] (73552) LP-IR Score 77 (Abnormal) Comments: INSULIN RESISTANCE MARKER <--Insulin Sensitive Insulin Resistant--> Percentile in Reference PopulationInsulin Resistance ScoreLP-IR Score Low 25th 50th 75th High <27 27 45 63 >63LP-IR Score is inaccurate if patient is non-fasting. .The LP-IR score is a laboratory developed i [facility] that has beenassociated with insulin resistance and [...] 1600 - 2000 Very High > 2000 04-Jht-799802:10 HEPATIC FUNCTION PANEL Comments: in three months (approximately); PATIENT NOT FASTINGPERFORMED BY: LabCoBristol-Myers Squibb Children's HospitalUqpgbf1649 [facility] [id number] (18730) ALT (SGPT) 112 [iU]/L (Abnormal) Range: 0-32 [...] three months (approximately); PATIENT WAS FASTINGPERFORMED BY: [employer] [id number] BY: The 19[address] Floor [facility]As[facility] [id number] (98172) Homocyst(e)ine, Plasma 9.3 umol/L (Normal) Range: 0.0-15.0 59-Hdr-932190:10 HEPATITIS PANEL (69238) Comments: today do; PATIENT NOT FASTINGPERFORMED BY: [employer] [facility] Joy HospitalLawbitDocsAshe Memorial Hospital [id number] Hep C Virus Ab 0.2 {s/co_ratio} (Normal) Range: 0.0-0.9 Comments: Negative: < 0.8 Indeterminate: 0.8 - 0.9 Positive: > 0.9 . The CDC recommends that a positive HCV antibody result be followed up with a HCV Nucleic Acid Amplification test (729262). Hep B Core Ab, IgM Negative (Normal) HBsAg Screen Negative (Normal) Hep A Ab, IgM Negative (Normal) :32 HEPATIC FUNCTION PANEL Comments: send copy to Dr. dejesus. do today; PATIENT WAS FASTINGPERFORMED BY: [employer] [id number] BY: The [address] Qqckgj8592 [facility] [id number]; apt today DB (99835) ALT (SGPT) 43 [iU]/L (Abnormal) Range: 0-32 AST (SGOT) 33 [iU]/L (Normal) Range: 0-40 Alkaline Phosphatase, S 98 [iU]/L (Normal) Range: 39-117 Bilirubin, Direct 0.14 mg/dL (Normal) Range: 0.00-0.40 Bilirubin, Total 0.5 mg/dL (Normal) Range: 0.0-1.2 Albumin, Serum 4.2 g/dL (Normal) Range: 3.5-4.8 Protein, Total, Serum 6.3 g/dL (Normal) Range: 6.0-8.5 95-Weo-896103:48 HgA1C , Office (34272) HgA1C , Office 5.7 % (Normal) Range: 4.6 - 7.1 19-Foh-091877:34 FERRITIN (85266) Comments: PATIENT NOT FASTINGPERFORMED BY: The 19th [address] Panoramic PowerFormerly [facility] [id number] Ferritin, Serum 246 ng/mL (Abnormal) Range: 15-150 00-Fni-796960:34 CERULOPLASMIN (94229) Comments: PATIENT NOT FASTINGPERFORMED BY: [facility] [id number] Ceruloplasmin 24.7 mg/dL (Normal) Range: 19.0-39.0 :34 ASM (ANTI SMOOTH MUSCLE Comments: PATIENT NOT FASTINGPERFORMED BY: [employer] Dispersol TechnologiesFormerly [facility] [id number] ANTIBODY) (62058) Actin (Smooth Muscle) Antibody 7 {Units} (Normal) Range: 0-19 Comments: Negative 0 - 19 Weak positive 20 - 30 Moderate to strong positive >30 . Actin Antibodies are found in 52-85% of patients with autoimmune hepatitis or chronic active hepatitis and in 22% of patients with primary biliary cirrhosis. 52-Oxx-140627:34 ANTI-LIVER/KIDNEY MICROSOMAL Comments: PATIENT NOT FASTINGPERFORMED BY: [facility] [id number] ANTIBODY (07156) Thyroid Peroxidase (TPO) Ab 9 {IU/mL} (Normal) Range: 0-34 85-Tkw-294250:34 JESS (ANTINUCLEAR ANTIBODY) Comments: PATIENT NOT FASTINGPERFORMED BY: [employer] Accenx TechnologiesAshe Memorial Hospital [id number] (53433) JESS Direct Negative (Normal) :33 Microscopic Examination Comments: PATIENT WAS FASTINGPERFORMED BY: [facility] [id number] Bacteria Few (Normal) Mucus Threads Present (Normal) Epithelial Cells (non renal) 0-10 {/hpf} (Normal) Range: 0 - 10 RBC 0-2 {/hpf} (Normal) Range: 0 - 2 WBC 0-5 {/hpf} (Normal) Range: 0 - 5 44-Bvx-217088:51 Rapid Flu (90433 x 2) Influenza A Ag neg a and b (Normal) 9-Pdf-698348:20 URINE RASHAD CULTURE-IDENTIFICATN Comments: PATIENT NOT FASTINGPERFORMED BY: [facility] Eykcnu1146 [facility] [id number] Information: [id number] (44946) Antimicrobial MIHEAD (Normal) Comments: S = Susceptible; [...] Final report Culture,Comprehensive (Abnormal) :18 Urinalysis, Office (80365) UA - GLUCOSE Negative (Normal) UA - BILIRUBIN Negative (Normal) UA - KETONES Negative mg/dL (Normal) UA - SPECIFIC GRAVITY 1.010 (Normal) UA - BLOOD Hemolyzed Trace (Normal) UA - PH 5 (Abnormal) UA - PROTEIN Negative mg/dL (Normal) URINE UROBILINGN SILVESTRE TIMED Normal mg/dL (Normal) UA - NITRITE Positive (Normal) UA - LEUKOCYTE ESTERASE Trace (Normal) :33 URINALYSIS, W/ MICRO (15432) Comments: PATIENT WAS FASTINGPERFORMED BY: [facility] Ajudmv6712 [facility] [id number] Microscopic Examination See below: (Normal) Comments: Microscopic was indicated and was performed. Nitrite, Urine Negative (Normal) Urobilinogen,Semi-Qn 0.2 mg/dL (Normal) Range: 0.2-1.0 Bilirubin Negative (Normal) Occult Blood Negative (Normal) Ketones Negative (Normal) Glucose Negative (Normal) Protein Negative (Normal) WBC Esterase 1+ (Abnormal) Appearance Clear (Normal) Urine-Color Yellow (Normal) pH 7.0 (Normal) Range: 5.0-7.5 Specific [place] 1.016 (Normal) Range: 1.005-1.030 :33 METABOLIC PANEL, COMPREHENSIVE Comments: PATIENT WAS FASTINGPERFORMED BY: [facility]Corewell [facility]6370 [facility] [id number] (79031) ALT (SGPT) 51 [iU]/L (Abnormal) Range: 0-32 [...] mg/dL (Abnormal) Range: 65-99 :33 LIPID PANEL (28389) Comments: PATIENT WAS FASTINGPERFORMED BY: VerbalizeItBristol-Myers Squibb Children's HospitalEqhlvh2532 [facility] [id number] LDL/HDL Ratio 3.8 {ratio_units} (Abnormal) Range: 0.0-3.2 [...] Cholesterol, Total 208 mg/dL (Abnormal) Range: 100-199 93-Ncr-53447:33 CBC with auto diff Comments: PATIENT WAS FASTINGPERFORMED BY: VerbalizeItBristol-Myers Squibb Children's HospitalIuyukm4046 [facility] [id number] Information: [id number]; [address] (61498) Immature Grans (Abs) 0.0 {x10E3/uL} (Normal) Range: [...] (Normal) Range: 3.4-10.8 :48 HgA1C , Office (74450) HgA1C , Office 6.3 % (Normal) Range: 4.6 - 7.1 :59 METABOLIC PANEL, COMPREHENSIVE Comments: PATIENT WAS FASTINGPERFORMED BY: LabCoBristol-Myers Squibb Children's HospitalGamvvc5126 [facility] [id number] (90957) ALT (SGPT) 44 [iU]/L (Abnormal) Range: 0-32 [...] mg/dL (Abnormal) Range: 65-99 :59 LIPID PANEL (27104) Comments: PATIENT WAS FASTINGPERFORMED BY: [facility]6370 [facility] [id number] LDL/HDL Ratio 4.1 {ratio_units} (Abnormal) Range: 0.0-3.2 [...] auto diff Comments: PATIENT WAS FASTINGPERFORMED BY: LabCoBristol-Myers Squibb Children's HospitalRheusp7592 [facility] [id number] Information: [id number] (15028) Immature Grans (Abs) 0.0 {x10E3/uL} (Normal) Range: [...] {x10E3/uL} (Normal) Range: 3.4-10.8 :55 Urinalysis, Office (01022) UA - LEUKOCYTE ESTERASE Small (Normal) UA - NITRITE Negative (Normal) URINE UROBILINGN SILVESTRE TIMED Normal mg/dL (Normal) UA - PROTEIN Negative mg/dL (Normal) UA - PH 7 (Normal) UA - BLOOD Negative (Normal) UA - SPECIFIC GRAVITY 1.010 (Normal) UA - KETONES Negative mg/dL (Normal) UA - BILIRUBIN Negative (Normal) UA - GLUCOSE Negative (Normal) :45 CBC W/Diff, Automated Comments: Test performed at:[facility] Llshxewuos[address] [place], [place] [id number] Absolute Lymph 2.36 {X10_3/ul} (Normal) Range: 0.83-4.51 [...] 4.2-5.4 WBC 13.0 K/mm3 (Abnormal) Range: 4.4-11.0 74-Qtd-91550:45 Comprehensive Metabolic Profil Comments: Test performed at:[facility] Bycollpfij[address] [place] [address] GAP 5 (Normal) Range: 5-15 CO2 27.0 [...] Comments: Please note revised CREATININE reference range nxjbrwyhs29/22/2015. BUN 15 mg/dL (Normal) Range: 7-18 GLU 134 mg/dL (Abnormal) Range: 70-110 Comments: Fasting Glucose result greater than or equal to 126 mg/dLsuggests DIABETES MELLITUS per A.D.A. criteria. :45 Lipase Comments: Test performed at:[facility] Fgxkdkoogj86[address] [facility] [place] [address] LIPASE 215 U/L (Normal) Range: 73-393 :32 Urinalysis, Complete Comments: Order Date: 12/16/14How was Urine Obtained? CLEAN CATCHTest performed at:[facility] [address] [place] [address] MUCUS, URINE 0 SEEN {/hpf} [...] Comprehensive Comments: PATIENT NOT FASTINGPERFORMED BY: [facility] Qgiskz[address] [place] [id number] (71616) ALT (SGPT) 44 [iU]/L (Abnormal) Range: 0-32 [...] Glucose, Serum 106 mg/dL (Abnormal) Range: 65-99 36-Qor-31333:31 CBC, Platelets & Auto Diff Comments: PATIENT NOT FASTINGPERFORMED BY: LabCoBristol-Myers Squibb Children's HospitalPiwzlj9298 [facility] [id number] Information: [id number] (13062) Immature Grans (Abs) 0.0 {x10E3/uL} (Normal) Range: [...] {x10E3/uL} (Normal) Range: 3.4-10.8 :05 Rapid Flu (29319 x 2) Comments: pos A Influenza A Ag positive A (Normal) :55 AQYOF-HLYJYDJYNOL-LSNDC (94374) Comments: today; PATIENT NOT FASTINGPERFORMED BY: VerbalizeItBristol-Myers Squibb Children's HospitalAsgmej0777 [facility] [id number] AFP, Serum, Tumor Marker 5.4 ng/mL (Normal) Range: 0.0-8.3 Comments: F.8 Interactive ECLIA methodology :55 HEPATITIS PANEL (97760) Comments: today; PATIENT NOT FASTINGPERFORMED BY: Hua KangCorewell Health [facility]od[facility] Hospital6370 [facility] [id number] Information: [id number] Hep C Virus Ab <0.1 {s/co_ratio} (Normal) Range: 0.0-0.9 Comments: Negative: < 0.8 Indeterminate: 0.8 - 0.9 Positive: > 0.9 . In order to reduce the incidence of a false positive result, the CDC recommends that all s/co ratios between 1.0 and 10.9 be confirmed by a more specific supplemental or PCR testing. [facility] offers HCV Ab w/Reflex to Verification test #062801. Hep B Core Ab, IgM Negative (Normal) HBsAg Screen Negative (Normal) Hep A Ab, IgM Negative (Normal) :21 HEPATIC FUNCTION PANEL Comments: repeat in 6 weeks around ; PATIENT NOT FASTINGPERFORMED BY: [facility] [place] [address] [id number] Information: [id number] (70871) ALT (SGPT) 38 [iU]/L (Abnormal) Range: 0-32 AST (SGOT) 28 [iU]/L (Normal) Range: 0-40 Alkaline Phosphatase, S 124 [iU]/L (Abnormal) Range: 39-117 Bilirubin, Direct 0.15 mg/dL (Normal) Range: 0.00-0.40 Bilirubin, Total 0.6 mg/dL (Normal) Range: 0.0-1.2 Albumin, Serum 4.2 g/dL (Normal) Range: 3.5-4.8 Protein, Total, Serum 6.5 g/dL (Normal) Range: 6.0-8.5 :09 Microscopic Examination Comments: PATIENT WAS FASTINGPERFORMED BY: [facility]6370 [facility] [id number] Bacteria Few (Normal) Epithelial Cells (non renal) 0-10 {/hpf} (Normal) Range: 0 - 10 RBC 0-2 {/hpf} (Normal) Range: 0 - 2 WBC 11-30 {/hpf} (Abnormal) Range: 0 - 5 96-Csl-706166:50 HgA1C , Office (28423) HgA1C , Office 5.8 % (Normal) Range: 4.6 - 7.1 :09 URINALYSIS, W/ MICRO (23391) Comments: PATIENT WAS FASTINGPERFORMED BY: [place] [address] [facility] [id number] Microscopic Examination See below: (Normal) Comments: Microscopic was indicated and was performed. Nitrite, Urine Negative (Normal) Urobilinogen,Semi-Qn 0.2 mg/dL (Normal) Range: 0.0-1.9 Bilirubin Negative (Normal) Occult Blood Negative (Normal) Ketones Negative (Normal) Glucose Negative (Normal) Protein Negative (Normal) WBC Esterase 3+ (Abnormal) Appearance Clear (Normal) Urine-Color Yellow (Normal) pH 7.0 (Normal) Range: 5.0-7.5 Specific [place] 1.014 (Normal) Range: 1.005-1.030 :09 METABOLIC PANEL, COMPREHENSIVE Comments: PATIENT WAS FASTINGPERFORMED BY: LabCorewell Health [facility] Hospital6370 [facility] [id number] (16556) ALT (SGPT) 41 [iU]/L (Abnormal) Range: 0-32 [...] of serum to cells. :09 LIPID PANEL (61579) Comments: PATIENT WAS FASTINGPERFORMED BY: VerbalizeItBristol-Myers Squibb Children's HospitalMzzzol1990 [facility] [id number] VLDL Cholesterol Kelsi VLDLCH mg/dL (Normal) Range: [...] Cholesterol, Total 233 mg/dL (Abnormal) Range: 100-199 47-Igg-118920:09 CBC W/AUTO DIFF WBC Comments: PATIENT WAS FASTINGPERFORMED BY: PriceBaba6370 [facility] [id number] Information: [id number] (83703) Immature Grans (Abs) 0.0 {x10E3/uL} (Normal) Range: [...] CREATININE RATIO Comments: PATIENT WAS FASTINGPERFORMED BY: BrandFiesta6370 [facility] Joy HospitalLawbitDocsAshe Memorial Hospital [id number] (07804) AND (39522) Microalb/Creat Ratio 2.7 {mg/g_creat} (Normal) Range: 0.0-30.0 Microalbumin, Urine 1.5 ug/mL (Normal) Range: 0.0-17.0 Creatinine, Urine 54.8 mg/dL (Normal) Range: 15.0-278.0 :39 METABOLIC PANEL, COMPREHENSIVE Comments: PATIENT WAS FASTINGPERFORMED BY: Modelinia70 Planet DDSAshe Memorial Hospital [id number] (61086) ALT (SGPT) 41 [iU]/L (Abnormal) Range: 0-32 [...] mg/dL (Abnormal) Range: 65-99 :39 LIPID PANEL (94887) Comments: PATIENT WAS FASTINGPERFORMED BY: Modelinia70 [facility] [id number] VLDL Cholesterol Kelsi VLDLCH mg/dL (Normal) Range: [...] MANUAL DIFF Comments: PATIENT WAS FASTINGPERFORMED BY: BrandFiesta6370 [facility] [id number] Information: [id number] (70321) Immature Grans (Abs) 0.0 {x10E3/uL} (Normal) Range: [...] in 8 weeks; PATIENT WAS FASTINGPERFORMED BY: Its Time Compliance70 AradigmFormerly [facility] [id number] (20852) Bilirubin, Direct 0.12 mg/dL (Normal) Range: 0.00-0.40 :35 Blood Glucose , Office (16257) Blood Glucose , Office 161 (Normal) :35 HgA1C , Office (63687) HgA1C , Office 5.6 % (Normal) Range: 4.6 - 7.1 :36 TSH (18554) Comments: Forward to Dr Avery Cobb, [place] [phone]; PATIENT WAS FASTINGPERFORMED BY: LabBreadcrumbtrackingrp Dtbmdu6543 [facility] Hospitalin [place] [id number] TSH 2.620 {uIU/mL} (Normal) Range: 0.450-4.500 :36 CBC with manual diff Comments: Forward to Dr Avery Cobb, [place] [phone]; PATIENT WAS FASTINGPERFORMED BY: [facility] Tbgteg2188 [facility] [id number] Informat ion: [id number] CC:[id number] (50157) Immature Grans (Abs) 0.0 {x10E3/uL} (Normal) Range: [...] Comprehensive Comments: Forward to Dr Avery Cobb, [place], [phone]; PATIENT WAS FASTINGPERFORMED BY: [facility] Bmwoxd2860 [facility] [id number] (23874) ALT (SGPT) 33 [iU]/L (Abnormal) Range: 0-32 [...] Glucose, Serum 119 mg/dL (Abnormal) Range: 65-99 4-Trv-249597:29 URINE RASHAD CULTURE-SILVESTRE COL Comments: PATIENT NOT FASTINGPERFORMED BY: [facility] Wnhgjo2922 [facility] [id number] Information: SRC: [id number] COUNT (89573) Result 1 ENTEAE (Normal) Comments: Enterobacter aerogenes1,000 Colonies/mL S = Susceptible; I = Intermediate; R = Resistant P = Positive; N = Negative MICS are expressed in micrograms per mL A ntibiotic RSLT#1 RSLT#2 RSLT#3 RSLT#4Amoxicillin/Clavulanic Acid RCefazolin RCefepime SCeftriaxone SCefuroxime SCephalothin RCiprofloxacin SErtapenem SGentamicin SImipenem SLevofloxacin SNitrofurantoin RPiperacillin STetracycline STobramycin STrimethoprim/Sulfa S Urine Final report (Normal) Culture,Comprehensiv e 2-Tzc-803444:14 Urinalysis, Office (45684) UA - LEUKOCYTE ESTERASE Large (Normal) UA - NITRITE Negative (Normal) URINE UROBILINGN SILVESTRE TIMED Normal mg/dL (Normal) UA - PROTEIN Negative mg/dL (Normal) UA - PH 7 (Normal) UA - BLOOD Hemolyzed Small (Normal) UA - SPECIFIC GRAVITY 1.015 (Normal) UA - KETONES Negative mg/dL (Normal) UA - BILIRUBIN Negative (Normal) UA - GLUCOSE Negative (Normal) 00-Vlx-181295:22 URINE RASHAD CULTURE-SILVESTRE COL Comments: PATIENT NOT FASTINGPERFORMED BY: [facility] Wyvgje8180 [facility] [id number] Information: SRC:UR [id number] COUNT (13205) Antimicrobial MIHEAD (Normal) Comments: S = Susceptible; [...] mL (Normal) Urine Final report Culture,Comprehensive (Normal) 62-Mqm-266105:24 Urinalysis, Office (73966) UA - BILIRUBIN Negative (Normal) UA - BLOOD Negative (Normal) UA - GLUCOSE Negative (Normal) UA - KETONES Negative mg/dL (Normal) UA - LEUKOCYTE ESTERASE Trace (Normal) UA - NITRITE Negative (Normal) UA - PH 7.0 (Normal) UA - PROTEIN Negative mg/dL (Normal) UA - SPECIFIC GRAVITY 1.015 (Normal) URINE UROBILINGN SILVESTRE TIMED 2 mg/dL (Normal) 75-Nsn-82220:28 Metabolic Panel, Basic Comments: PATIENT NOT FASTINGPERFORMED BY: LabCoSherry Ville 4082470 [facility] [id number] Information: [id number] (50094) Calcium, Serum 10.1 mg/dL (Normal) Range: 8.6-10.2 [...] Glucose, Serum 94 mg/dL (Normal) Range: 65-99 46-Zqi-00010:57 MAGNESIUM (99967) Comments: PATIENT NOT FASTINGPERFORMED BY: LabCoSherry [place] 4082470 [facility] [id number] Magnesium, Serum 1.9 mg/dL (Normal) Range: 1.6-2.6 76-Ddb-63843:57 Metabolic Panel, Basic Comments: PATIENT NOT FASTINGPERFORMED BY: LabCoSherry [place] 4082470 [facility] [id number] Information: ADD [id number] AND DRAW FEE 99 3860 (70818) Calcium, Serum 9.9 mg/dL (Normal) Range: 8.6-10.2 [...] function Panel Comments: PATIENT NOT FASTINGPERFORMED BY: The [address] G[address]81 [facility] [id number] Information: [id number] (38130) Albumin, Serum 4.1 g/dL (Normal) Range: 3.5-4.8 [...] 101 mg/dL (Abnormal) Range: 65-99 :12 Magnesium (70689) Comments: PATIENT NOT FASTINGPERFORMED BY: VerbalizeItBristol-Myers Squibb Children's HospitalQuuyfl1161 [facility] [id number] Magnesium, Serum 1.7 mg/dL (Normal) Range: 1.6-2.6 73-Ezd-967847:08 KNEE 4 OR MORE VIEWS Radiology See [...] Alvares M.D.December 05, 2012 at 11:41:24 AM [id number] Signed GP/GP If you are the referring physician and would like to consult with th eradiologist who provided this interpretation, please contact Maurilio Miller at [phone]. If this radiologist is unavailable, youwill be directed to another radiologist to assist. If you ar e a patient with a question regarding this report, pleasecontactyour referring physician directly. Professional Interpretation Provided By: Currently, Phone , These docum ents contain legally [...] 12/05/12 1459 Sign by: Archie Alvares MD 97-Yts-73893:20 RENAL FUNCTION PANEL Comments: PATIENT NOT FASTINGPERFORMED BY: [facility]6370 [facility] [id number] Information: [id number] (37991) Albumin, Serum 4.5 g/dL (Normal) Range: 3.5-4.8 [...] Glucose, Serum 131 mg/dL (Abnormal) Range: 65-99 48-Fxw-504380:58 Nuclear Stress Test Radiology Report See Note [...] 11/30/12 1458 by THIERRY MS,HOLLYSign by Lonnie NUNEZ,Sabine Pass on 12/02/12 1640 Sign by: Lonnie NUNEZ,Brennan 20-Cwi-162041:24 Metabolic Panel, Basic Comments: PATIENT NOT FASTINGPERFORMED BY: [employer] [place] [id number] Information: [id number] (25578) Calcium, Serum 9.6 mg/dL (Normal) Range: 8.6-10.2 [...] Glucose, Serum 96 mg/dL (Normal) Range: 65-99 36-Cex-821600:24 MAGNESIUM (48814) Comments: PATIENT NOT FASTINGPERFORMED BY: BrandFiesta6370 Planet DDSCogentus Pharmaceuticals [place] [id number] Magnesium, Serum 2.1 mg/dL (Normal) Range: 1.6-2.6 [...] <0.05 NEGATIVE0.06 - 0.59 AT RISK OF AR> OR = 0.60 SUGGEST AR 7-Jre-416144:23 TSH 1.27 {uIU/mL} (Normal) Range: 0.358-3.74 76-Ckc-450983:58 BILAT SCRN DIGITAL & CAD Radiology Report [...] Alvares M.D.June 08, 2012 at 2:30:29 PM [id number] Signed GP/GP If you are the referring physician and would like to consult with theradiologist who pro vided this interpretation, please contact Maurilio Miller at [phone]. If this radiologist is unavailable, youwill be directed to another radiologist to assist. If you are a patient with a q uestion regarding this report, pleasecontactyour referring physician directly. Professional Interpretation Provided By: Currently, Phone , These documents contain legally protected [...] 06/08/12 1437 Sign by: Archie Alvares MD 90-Unc-41692:57 LIPID PANEL (66597) Comments: PATIENT WAS FASTINGPERFORMED BY: LabCoCarlsbad Medical CenterQhdawx9107 [facility] [id number] Information: [id number] VLDL Cholesterol Kelsi VLDLCH mg/dL (Normal) Range: [...] Cholesterol, Total 227 mg/dL (Abnormal) Range: 100-199 33-Jla-239830:05 WRIST,MIN 3 VIEWS Radiology Report See Note [...] Signed DS/NATALIE Profession al Interpretation Provided By: [facility] [employer], , To consult with a radiologist regarding this report, please call our [id number] line @ [phone] Dictated on 09/29/11 1133 by Janette Sykes DOscribed on 10/01/11 1001 by ITS IMPORTSign by Moses Sykes DO on 10/01/11 1002 Sign by: Moses Sykes DO 16-Bdj-948373:47 MICROALBUMIN: CREATININE RATIO Comments: PATIENT WAS FASTINGPERFORMED BY: LabCoBristol-Myers Squibb Children's HospitalQtvfeq3289 [facility] [id number] (81359) AND (76977) Microalb/Creat Ratio 2.6 {mg/g_creat} (Normal) Range: 0.0-30.0 Microalbumin, Urine 3.0 ug/mL (Normal) Range: 0.0-17.0 Creatinine, Urine 115.1 mg/dL (Normal) Range: 15.0-278.0 :47 METABOLIC PANEL, COMPREHENSIVE Comments: PATIENT WAS FASTINGPERFORMED BY: Its Time Compliance70 Planet DDSAshe Memorial Hospital [id number] (29156) ALT (SGPT) 46 [iU]/L (Abnormal) Range: 0-40 [...] mg/dL (Abnormal) Range: 65-99 :47 LIPID PANEL (38637) Comments: PATIENT WAS FASTINGPERFORMED BY: BrandFiesta6370 Planet DDSAshe Memorial Hospital [id number] VLDL Cholesterol Kelsi VLDLCH mg/dL (Normal) Range: [...] Cholesterol, Total 195 mg/dL (Normal) Range: 100-199 34-Owe-108328:47 CBC WITH MANUAL DIFF Comments: PATIENT WAS FASTINGPERFORMED BY: LabCoBristol-Myers Squibb Children's HospitalXrmdqj9916 [facility] [id number] Information: [id number] (63934) Immature Grans (Abs) 0.0 {x10E3/uL} (Normal) Range: [...] change WBC 5.6 {x10E3/uL} (Normal) Range: 4.0-10.5 52-Iia-062068:01 BILAT SCRN DIGITAL & CAD Radiology Report [...] radiologist regarding this report, please call our [id number] line @ Dictated on 05/19/11 1229 by Leonides Alvares MDscribed on 05/19/11 1407 by ITS IMPORTSign by Archie Alvares MD on 05/19/11 1408 Sign by: Archie Alvares MD 28-Qxc-039610:11 LIPID PANEL (21072) Comments: now and in six months (approximately); PERFORMED BY: BrandFiesta6370 [facility] [id number] HDL Cholesterol 32 mg/dL (Abnormal) Comments: According [...] Comments: in six months (approximately); PERFORMED BY: BrandFiesta6370 [facility] [id number] (26184) ALT (SGPT) 57 [iU]/L (Abnormal) Range: 0-40 [...] Glucose, Serum 102 mg/dL (Abnormal) Range: 65-99 2-Vpm-078595:51 CHEST, PA AND LATERAL Radiology Report See [...] on 07/21/101935 Sign by: Archie Alvares MD 8-Gxt-079827:14 Urinalysis, Office (63490) UA - BILIRUBIN Negative (Normal) UA - [...] <=16 S TRIMETHOPRIM/SULFAMETHOXAZO $ >=320 R EB-VCA [id number] < 0.2 {AI} Range: 0.0-0.8 :48 (Normal) Comments: Negative <0.9 Equivocal 0.9 - 1.0 Positive >1.0Performed at: [facility] Lab[address] [id number] Director: Mara Wilson MD, Phone: [phone] :48 ESR SED RATE 113 mm/h (Abnormal) Range: 0-30 :48 HEP-ABC 012031 HB CORE [id number] SeeNote (Normal) Comments: Result: Negative HEBSAB 6395 [...] COL Comments: PATIENT NOT FASTINGPERFORMED BY: [facility] Kzgagh2146 [facility] [id number] Information: SRC: [id number] COUNT (11198) Antimicrobial MIHEAD (Normal) Comments: S = Susceptible; [...] 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 Despite apparent in vitro susceptibility topenicillins and cephalospor (Normal) ins, this organism may be clinicallyresistant to therapy with these agents and, per the CLSI (formerlyMICLS), we have changed their results to indicate this. Urine Final report (Normal) Culture,Comprehensive 6-Mem-137699:44 Urinalysis, Office (79574) UA - BILIRUBIN Negative (Normal) UA - [...] on 05/22/10 1538 Sign by: JOVANY ARAMBULA 17-Stb-504590:24 Influenza A, H1N1, RT PCR Comments: PERFORMED BY: SHANNON Hua Kang[address] [id number] BY: ILIR LabCoBristol-Myers Squibb Children's HospitalYzrtsl4366 [facility] [id number] Information: SRC:NL Subtype Novel H1N1 by Negative (Normal) PCR Type Influenza A by Negative (Normal) PCR Viral FLUABN (Normal) Comments: PERFORMED BY: VerbalizeItSt. Mary's HospitalLdexyplwbt9269 [facility] [id number] BY: [facility]6370 [facility] [id number] Culture,Rapid,Influenz Comments: Negative:No Influenza A or B detected. a 76-Unq-748507:25 Influenza A Ag (34244) Influenza A Ag negative (Normal) 30-Qtr-873539:55 Urinalysis, Office (32101) UA - BILIRUBIN Negative (Normal) UA - BLOOD Negative (Normal) UA - GLUCOSE Trace (Normal) Comments: 100mg UA - KETONES Negative mg/dL (Normal) UA - LEUKOCYTE ESTERASE Small (Normal) UA - NITRITE Negative (Normal) UA - PH 7.0 (Normal) UA - PROTEIN Negative mg/dL (Normal) UA - SPECIFIC GRAVITY 1.015 (Normal) URINE UROBILINGN SILVESTRE TIMED 2 mg/dL (Normal) 9-Lzi-781795:04 CBC with manual diff Comments: PATIENT NOT FASTINGPERFORMED BY: VerbalizeItS[place] [id number] [facility] [id number] Information: [id number] ([id number]) Immature Grans (Abs) 0.0 {x10E3/uL} (Normal) Range: [...] 3.80-5.10 WBC 6.4 {x10E3/uL} (Normal) Range: 4.0-10.5 5-Uuv-003724:04 Metabolic Panel, Comprehensive Comments: PATIENT NOT FASTINGPERFORMED BY: [facility] HospitalDacymg9756 [facility] [id number] ([id number]) ALT (SGPT) 78 [iU]/L (Abnormal) Range: 0-40 [...] Glucose, Serum 105 mg/dL (Abnormal) Range: 65-99 34-Goh-508186:07 BRAIN/HEAD WITHOUT CONTRAST Radiology Report See Note [...] on 03/11/10 0859 Sign by: JOVANY ARAMBULA 40-Iax-08851:00 CHEST, PA AND LATERAL Radiology Report See [...] STYLES on 03/12/10637 Sign by: BERTO STYLES 31-Fsp-83610:00 RIBS UNIL 2V NO CXR Radiology Report [...] STYLES on 03/12/10637 Sign by: BERTO STYLES 3-Fdq-856827:04 Lower Respiratory Culture Comments: PERFORMED BY: [facility] Pqtzhv1455 [facility] [id number] Information: SRC:SP Result 1 RRF (Normal) Comments: Routine respiratory ermelinda Lower Respiratory Culture Final report (Normal) 22-Wgy-318767:29 ETH TISS P-ETH (Normal) Comments: OPERATIONSeptoplasty, bilateral [...] / SJ: 09/10/09 TC:3REPORT SIGNED: SCOOTER SNYDER 09/12/0929-Aug-200968-Oso-713048:05 BMP BUN/CRE 20.0 {RATIO} (Normal) Range: 10-20 [...] 126 mg/dLsuggests DIABETES MELLITUS per A.D.A. criteria. 60-Gtm-261626:05 CBC MPV 7.1 fL (Normal) Range: 6.5-12.0 HCT 39.7 % (Normal) Range: 37-47 HGB 14.0 g/dL (Normal) Range: 12.0-16.0 MCH 31.3 pg (Normal) Range: 27.0-32.0 MCHC 35.3 g/dL (Normal) Range: 32-36 MCV 88.6 fL (Normal) Range: 81-99 PLT 232 K/mm3 (Normal) Range: 150-450 RBC 4.48 {M/mm3} (Normal) Range: 4.2-5.4 RDW 13.8 % (Normal) Range: 11.6-14.6 WBC 8.1 K/mm3 (Normal) Range: 4.4-11.0 8-Uas-192018:33 MICROALBUMIN: CREATININE RATIO Comments: PATIENT WAS FASTINGPERFORMED BY: [facility] HospitalSnkutm7342 [facility] [id number] ([id number]) AND ([id number]) Microalb/Creat Ratio 3.2 {mg/g_creat} (Normal) Range: 0.0-30.0 Creatinine, Urine 37.1 mg/dL (Normal) Range: 15.0-278.0 Microalbumin, Urine 1.2 ug/mL (Normal) Range: 0.0-17.0 0-Ovo-421502:33 METABOLIC PANEL, COMPREHENSIVE Comments: PATIENT WAS FASTINGPERFORMED BY: [facility] HospitalThbaci4943 [facility] [id number] ([id number]) ALT (SGPT) 33 [iU]/L (Normal) Range: 0-40 [...] mg/dL (Abnormal) Range: 65-99 :33 LIPID PANEL (21701) Comments: PATIENT WAS FASTINGPERFORMED BY: [facility] Yxkuvq6354 [facility] [id number] LDL Cholesterol Calc 142 mg/dL (Abnormal) Range: 0-99 LDL/HDL Ratio 3.5 {ratio_units} (Abnormal) Range: 0.0-3.2 VLDL Cholesterol Kelsi 57 mg/dL (Abnormal) Range: 5-40 Cholesterol, Total 240 mg/dL (Abnormal) Range: 100-199 HDL Cholesterol 41 mg/dL (Normal) Comments: According to ATP-III Guidelines, HDL-C >59 mg/dL is considered anegative risk factor for CHD. Triglycerides 284 mg/dL (Abnormal) Range: 0-149 5-Shm-002979:33 CBC WITH MANUAL DIFF Comments: PATIENT WAS FASTINGPERFORMED BY: [facility]6370 [facility] [id number] Information: [id number] ([id number]) Baso (Absolute) 0.0 {x10E3/uL} (Normal) Range: 0.0-0.2 [...] Report See Note (Normal) Comments: Exam Number: [id number] CT SCAN OF THE THORAX Multiple axial [...] left upper lobe. Reported By: ARCHIE ALVARES 96-Xtq-517761:05 PPD ([id number]) Comments: Lot #[id number]/Site-left forearmDose0.1 mlgiven by:[facility]; negative 20-Hjk-48802:18 TSH ([id number]) Comments: PATIENT WAS FASTINGPERFORMED BY: [facility] Rxfroi5926 [facility] [id number] TSH 1.234 {uIU/mL} (Normal) Range: 0.450-4.500 57-Khp-37300:18 METABOLIC PANEL, COMPREHENSIVE Comments: PATIENT WAS FASTINGPERFORMED BY: [facility] Nnjwyg7583 [facility] [id number] ([id number]) A/G Ratio 1.4 (Normal) Range: 1.1-2.5 Albumin, [...] Serum 117 mg/dL (Abnormal) Range: 65-99 If -Maldivian >59 mL/min/1.73 Comments: Note: Persistent reduction for [...] Sodium, Serum 141 mmol/L (Normal) Range: 135-145 17-Xkv-68895:18 LIPID PANEL (77390) Comments: PATIENT WAS FASTINGPERFORMED BY: [facility] [id number] Cholesterol, Total 206 mg/dL (Abnormal) Range: 100-199 [...] Cholesterol Kelsi 55 mg/dL (Abnormal) Range: 5-40 30-Kkd-28685:18 CBC WITH MANUAL DIFF (62306) Comments: PATIENT WAS FASTINGClinical Information: ADD DRAW FEE [id number] ADD J 32141 PERFORMED BY: [place] [id number] Baso (Absolute) 0.0 {x10E3/uL} (Normal) Range: 0.0-0.2 [...] 3+ ORGANISM 1: GROUP A BETA STREPTOCOCCUS 69-Iow-464980:26 MRSA DNA BY PCR MRSA RESULT SeeNote (Normal) Comments: Result: Negative 3-Zlh-838612:25 COMP METABOLIC Comments: COMMENTS: NEW ADMIT A/G [...] T PROT 7.7 g/dL (Normal) Range: 6.4-8.2 13-Nir-881755:10 MAMM, BILAT SCRN DIGITAL & CAD Radiology Report See Note (Normal) Comments: Exam Number: [id number] MAMMOGRAPHY, BILATERAL SCREENING DIGITAL AND CAD HISTORYRoutine [...] mammograms werealso examined with computer-aided detection software ([employer], [employer] Reported By: JOVANY ARAMBULA M.D. 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 Application Security Consultant Letter Indication: Afib Knee pain, right : [...] Indication: Well woman exam Planned Observations Ferritin ([id number])Indication: Elevated LFTs On: :05 Request HEPATIC FUNCTION PANEL (19742)Indication: Elevated LFTs On: :04 Request DQSFX-XKJPFKJYFEN-TYQIN ([id number])Indication: Elevated LFTs On: :04 Request METABOLIC PANEL, COMPREHENSIVE (24160)Indication: Hypercholesteremia On: 69-Bmp-978666:41 Request LIPOPROTEIN, BLD, BY NMR (76098)Indication: Hypercholesteremia On: 11-Pxo-081373:41 Request Metabolic Panel, Basic (40639)Indication: Abdominal pain On: :25 Request CBC, Platelets & Auto Diff (07112)Indication: Abdominal pain On: 47-Ifu-242910:24 Request Sed Rate Erythrocyte (60358)Indication: Abdominal pain On: 06-Wgx-664562:16 Request URINE RASHAD CULTURE-IDENTIFICATN (68203)Indication: Dysuria On: 73-Fiy-12496:35 Request MICROALBUMIN: CREATININE RATIO (89128) AND (67067)Indication: Hypertensive left ventricular hypertrophy On: :01 Request URINALYSIS (81127)Indication: Hypertensive left ventricular hypertrophy On: :01 Request CBC WITH MANUAL DIFF (00166)Indication: Hypertensive left ventricular hypertrophy On: :01 Request Metabolic Panel, Comprehensive (48750)Indication: Elevated LFTs On: :01 Request URINE RASHAD CULTURE-IDENTIFICATN (49398)Indication: Urinary tract infection, site not specified On: :09 Request URINALYSIS (84327)Indication: Urinary tract infection, site not specified On: 38-Qvz-206506:09 Request URINALYSIS (86398)Indication: Dysuria On: 40-Wne-438667:59 Request Homocysteine, Plasma (85315)Indication: MTHFR mutation On: 19-Nov-20169:24 Request Comments: follow up with in six months (approximately) CBC with auto diff (21883)Indication: Hematoma of hip, right, initial encounter On: :57 Request HEPATIC FUNCTION PANEL (86886)Indication: Hypercholesteremia On: 01-Jlk-27409:37 Request Comments: 6 weeks HEPATITIS PANEL (67822)Indication: Elevated LFTs On: 21-Uts-172571:30 Request URINALYSIS, W/ MICRO (33509)Indication: Hypertensive left ventricular hypertrophy On: :49 Request METABOLIC PANEL, COMPREHENSIVE (83933)Indication: Hypertensive left ventricular hypertrophy On: :49 Request LIPID PANEL (24207)Indication: Hypertensive left ventricular hypertrophy On: :49 Request CBC with auto diff (14491)Indication: Hypertensive left ventricular hypertrophy On: :49 Request HgA1C , Office (13459)Indication: Impaired fasting glucose On: 93-Htb-29743:47 Request Lipid Panel (28503)Indication: Afib On: 76-Dxy-322835:21 Request Comments: copy to Dr. matthews Metabolic Panel, Basic (44862)Indication: Afib On: 38-Zjd-978008:20 Request HEPATIC FUNCTION PANEL (72985)Indication: Elevated LFTs On: 71-Yzl-039529:20 Request Lipid Panel (66579)Indication: Hypercholesteremia On: 44-Tui-038104:20 Request METABOLIC PANEL, BASIC (51463)Indication: Hypokalemia On: 17-Feb-20139:10 Request Comments: pls send copy to Dr Young also METABOLIC PANEL, COMPREHENSIVE (28389)Indication: Palpitation On: 8-Jmw-286552:10 Request CBC WITH MANUAL DIFF (92844)Indication: Palpitation On: 4-Uxm-023647:10 Request TSH (69578)Indication: Palpitation On: 4-Qgj-981008:10 Request CREATINE KINASE TOTAL (53207)Indication: Abnormal EKG On: 0-Omv-906507:10 Request CPK MB FRACTION (11548)Indication: Abnormal EKG On: 1-Ark-446087:10 Request Troponin I (28141)Indication: Abnormal EKG On: 8-Jbw-370372:10 Request LIPID PANEL (07550)Indication: Hypertensive left ventricular hypertrophy On: 28-Nrj-226237:43 Request Comments: in in six months (approximately) only. URINALYSIS, W/ MICRO (29436)Indication: Hematuria On: 61-Qby-538239:43 Request CBC (Auto) (36584)Indication: Hypertensive left ventricular hypertrophy On: 00-Gps-404136:38 Request Metabolic Panel, Comprehensive (37332)Indication: Hypertensive left ventricular hypertrophy On: 97-Bnp-579742:37 Request URINE RASHAD CULTURE-IDENTIFICATN (68115)Indication: NEOP, BNG, RENAL PELVIS On: 39-Wkc-472456:37 Request COMPLEMENT, TOTAL (CH50) (47526)Indication: Rheumatoid arthritis On: 0-Cxd-657110:22 Request COMPLEMENT C4 (29238)Indication: Rheumatoid arthritis On: 8-Aeh-639656:22 Request COMPLEMENT C3 (97544)Indication: Rheumatoid arthritis On: 5-Yit-409028:22 Request Potassium Serum (51631)Indication: Hypokalemia On: 5-Iyu-877157:21 Request Comments: re check on Wednesday05-24-10 please call results to Dr. Troncoso RHEUMATOID FACTOR-QUANT ([id number]) test code [id number]: Rheumatoid arthritis On: 4-Lgj-853077:20 Request Comments: add to labs already drawn please Magnesium (81615)Indication: Hypokalemia On: 5-Fza-015597:19 Request HEPATITIS PANEL (92011)Indication: Elevated LFTs On: :10 Request EBV IGM ANTIBODY (94687)Indication: Elevated LFTs On: : Request RASHAD CULTURE-BLOOD (55456)Indication: Urinary tract infection, site not specified On: : Request Amylase (32811)Indication: Abdominal pain, acute, generalized On: : Request Lipase (14353)Indication: Abdominal pain, acute, generalized On: : Request Sed Rate Erythrocyte (76865)Indication: Abdominal pain, acute, generalized On: : Request Metabolic Panel, Comprehensive (79726)Indication: Abdominal pain, acute, generalized On: : Request CBC with manual diff (22189)Indication: Abdominal pain, acute, generalized On: : Request Influenza A&B Viral Culture ([id number])Indication: INFLUENZA W/MANIFESTATION NEC On: 12-Jnq-557645:48 Request Influenza A H1N1 PCR (88978)Indication: INFLUENZA W/MANIFESTATION NEC On: 96-Twc-542535:48 Request Rapid Flu (51571 x 2)Indication: INFLUENZA W/MANIFESTATION NEC On: 28-Jur-762426:48 Request METABOLIC PANEL, BASIC (74693)Indication: Hypokalemia On: 15-Olf-269179:20 Request CULTURE, SPUTUM (14241)Indication: Cough On: 24-Feb-20109:25 Request PPD (63503)Indication: Screening examination for pulmonary tuberculosis On: 11-Dqr-282244:05 Request Comments: Lot #[id number]/11Site-left forearmDose0.1 mlgiven by:[facility] Potassium Serum (97022)Indication: Hypokalemia On: 35-Osg-627393:27 Request Comments: 2weeks Glucose, PP/2 Hour (34176)Indication: Impaired fasting glucose On: 32-Jrh-790249:23 Request Comments: 75 gm Lipid Panel (81440)Indication: Hypercholesteremia On: 17-Qbl-638276:23 Request Comments: 4 months RASHAD CULTURE-OTHER (53604)Indication: Cellulitis and abscess of leg, except foot On: 95-Uhn-669117:16 Request Comments: nasal BACT CULTURE ANY-ANAEROBIC (34165)Indication: Cellulitis and abscess of leg, except foot On: :16 Request Comments: nasal BACT CULTURE ANY-ANAEROBIC (21384)Indication: Cellulitis and abscess of leg, except foot On: 14-Kqy-895571:15 Request Comments: rt leg RASHAD CULTURE-OTHER (72522)Indication: Cellulitis and abscess of leg, except foot On: 95-Ldr-402234:15 Request Comments: Rt leg OCCULT BLOOD FECES SCREEN (13319)Indication: Well woman exam On: :50 Request Comments: done in office Thin prep Pap (08019)Indication: Well woman exam On: :50 Request URINALYSIS W/O MICRO (59295)Indication: Hypertension, benign On: :49 Request CBC (Auto) (28695)Indication: Hypertension, benign On: :49 Request Lipid Panel (15139)Indication: Hypertension, benign On: :49 Request Metabolic Panel, Comprehensive (75973)Indication: Hypertension, benign On: :49 Request Planned Encounters Medical; [facility] Pre Wellness Exam (Nurse) - On: 08-Mar-2018 8:00 [facility] SAMI Orta; [facility] Wellness Exam (Doctor) - On: 28-Mar-2018 8:00 [facility] Diana Troncoso MD, MD, Dana M Planned Procedures TDAP VACCINE >7 IM (62191)By: On: 31-Aug-2017 Intent Diana Troncoso MD Comments: lot:[id number]:09/16/19rte:IM left deltoid dose:0.5mlgiven by:gosia Gonzáles LPN MD, Dana M DEXA SCAN AXIAL SKELETON On: 31-Aug-2017 Intent (20456)By: Diana Troncoso MD Comments: due 12-04 Diana Troncoso MD Aerosol Treatment (10546)By: On: 28-Apr-2017 Intent Katerine Campo DO Comments: no noise after aeorols inspir or exp Radiology - Chest- PA and On: 28-Apr-2017 Intent LatBy: Katerine Campo DO Spirometry (56419)By: Alber On: 28-Apr-2017 Intent Katerine SANCHEZ Comments: normal SCREENING DIGITAL On: 19-Jan-2017 Intent TOMOSYNTHESIS OF BREAST (55686)By: Diana Troncoso MD, MD, Dana M Holter Monitor 24 hrsBy: On: 10-Nov-2016 Intent Diana Troncoso MD Comments: copy to [employer]az[employer] Holdingsnjjorge and him to read. Diana NUNEZ Radiology - Hand - RightBy: On: 03-Nov-2016 Intent Diana Troncoso MD, MD, Dana M Radiology - Elbow - RightBy: On: 03-Nov-2016 Intent Diana Troncoso MD, MD, Dana M Radiology - Hip - RightBy: On: 03-Nov-2016 Intent Diana Troncoso MD, MD, Dana M Radiology - Chest- PA and On: 26-Jun-2016 Intent LatBy: Marleni Kang DO Comments: stat call results Aerosol Treatment (46922)By: On: 26-Jun-2016 Marleni Lara DO Comments: with albuterol Holter Monitor 24 hrsBy: On: 21-May-2016 Intent Diana Troncoso MD, MD, Dana M EKG (11985)By: You, On: 21-May-2016 Intent SAMI Comments: see [...] M Flu Vaccine (Quadrivalent) On: 31-Jan-2016 Intent 21594Aw: Diana Troncoso MD Comments: Lot:[id number]:10/16/16Dose:0.5mLRoute:IMSite:L DltdGiven By:CHRISSIE signed Diana Troncoso MD MAMMOGRAM, SCREENING, BOTH On: 20-Jan-2016 Intent BREAST (13701)By: Diana Troncoso MD, MD, Dana M Flu Vaccine (Quadrivalent) On: 05-Feb-2015 Intent 02291Ww: Diana Troncoso MD Comments: Lot:[id number]:10/17/15Dose:0.5mLRoute:IMSite:L DltdGiven By:CHRISSIE signed Diana Troncoso MD IMMUNIZ ADMNIN, 1 VAC, On: 14-Jan-2015 Intent SNGL/COMBO (05880)By: Visit, Nurse [place], [place] (81389)By: On: 14-Jan-2015 Intent Diana Troncoso MD Comments: lot: [id number]: 09/02site/route: R arm/SQamt:0.5mLVIS signed when applicableONUR Ballard MD, Dana M ADMINISTRATION OF On: 07-Jan-2015 Intent PNEUMOCOCCAL VACCINE (G0009)By: Izabela Rehman BILATERAL MAMMOGRAMS On: 18-Dec-2014 Intent (86062)By: Diana rToncoso MD, MD, Dana M Solu -Medrol Injection, 125 On: 19-Nov-2014 Intent mg (J2930)By: Jacquelyn Garcia CNP Aerosol Treatment (12000)By: On: 19-Nov-2014 Intent Jacquelyn Garcia CNP Wax CurettesBy: Manjit NUNEZ, On: 03-Jul-2014 Intent Diana Pena MD Ear Irrigation (78889)By: On: 03-Jul-2014 Intent Diana Troncoso MD Comments: IrrigationSite- R earAmount/Color/Quality - medium amount of soft, dark brown cerumen removed Toelrated well: yesCurette ONUR Schofield MD, Dana M Rocephin Injection, 2 Gram On: 03-Jul-2014 Intent (J0696)By: Diana Troncoso MD Comments: IMlot: [id number]: 12/18/16site/route: RGM and LGMamt: 2GVIS signed when applicableONUR Ballard MD, Dana M Solu -Medrol Injection, 125 On: 03-Jul-2014 Intent mg (J2930)By: Manjit NUNEZ, Comments: lot: [id number]: site/route: LGM/IMamt: 2mLVIS signed when applicableONUR Ballard MD, Dana M ELECTROCARDIOGRAM, COMPLETE On: 03-Jul-2014 Intent (ECG) (76283)By: Diana Troncoso MD, MD, Dana M Radiology - ChestBy: Ciesa On: 02-Jul-2014 Intent GRACE Kaitlin Aerosol Treatment (27917)By: On: 29-Jun-2014 Intent Jacquelyn Garcia CNP Solu -Medrol Injection, 125 On: 13-Jun-2014 Intent mg (J2930)By: Ciparam EDWARDS Kaitlin Aerosol Treatment (91361)By: On: 13-Jun-2014 Intent Jacquelyn Garcia CNP Radiology - ChestBy: Ciesa On: 06-Jun-2014 Intent GRACE Kaitlin Aerosol Treatment (08308)By: On: 06-Jun-2014 Intent Nat Boyle LPN Radiology - Knee - RightBy: On: 09-Apr-2014 Intent Katerine Campo DO Iwcqywcin-Ewc-Aansx On: 09-Apr-2014 Intent (36305)By: Katerine Campo DO ADMINISTRATION OF INFLUENZA On: 12-Feb-2014 Intent VIRUS VACCINE (G0008)By: Comments: Lot #[id number]-L dltd, IMDose prefilled syringegiven by:SILAS Meredith and ABN signed Visit, Nurse FLU VAC, SPLIT, >3 YEARS, On: 12-Feb-2014 Intent INTRAMUSC (12669)By: Visit, Nurse Ultrasound - LiverBy: Radha On: 23-Jan-2014 Intent Jacquelyn EDWARDS Hmxizwscg-Pug-Qtmbk On: 25-Sep-2013 Intent (47398)By: Jacquelyn Garcia CNP SPECIMEN HANDLING/TRANSPORT On: 21-Jun-2013 Intent (80142)By: Pinawillian EDWARDS Jacquelyn Bean Breast Screening - On: 20-Jun-2013 Intent BilateralBy: Manjit NUNEZ, Diana Troncoso MD, Diana Nicole ADMINISTRATION OF INFLUENZA On: 08-May-2013 Intent VIRUS VACCINE (G0008)By: Nellie Hickey FLU VAC, SPLIT, >3 YEARS, On: 08-May-2013 Intent INTRAMUSC (71769)By: Manjit Comments: lot [id number] 2014site/route L kely, IMamt 0.5mlVIS and ABN signed when applicableONUR Ballard MD, Diana Troncoso MD, Diana Nicole Aerosol Treatment (44347)By: On: 21-Apr-2013 Intent Radha EDWARDS Jacquelyn Bean SPECIMEN HANDLING/TRANSPORT On: 16-Jan-2013 Intent (28637)By: Danisha Dawson LPN Venous Doppler - RightBy: On: 05-Dec-2012 Intent Pinawillian EDWARDS Kaitlin Radiology - Knee - RightBy: On: 05-Dec-2012 Intent Radha EDWARDS Jacquelyn Bean Holter Moniter (85337)By: On: 24-Nov-2012 Intent Katerine Campo DO Nuclear Stress Test/Stress On: 24-Nov-2012 Intent SPECT/TreadmillBy: Katerine Campo DO Echo CompleteBy: Alber SANCHEZ, On: 24-Nov-2012 Intent Katerine EKG (23543)By: Ernesto, On: 24-Nov-2012 Intent Shayy MATHEW Comments: nsr mild st depression lateral precordial leads MAMMOGRAM, SCREENING, BOTH On: 17-May-2012 Intent BREASTS (11243)By: Manjit NUNEZ, Diana Pena MD FLU VAC, SPLIT, >3 YEARS, On: 29-Mar-2012 Intent INTRAMUSC (00628)By: Ori, Comments: Lot:[id number]:6.30.13Dose:0.5mLRoute:IMSite:L DltdGiven By:JKMVIS signed Izabela ADMINISTRATION OF INFLUENZA On: 29-Mar-2012 Intent VIRUS VACCINE (G0008)By: Izabela Rehman Radiology - Wrist - LeftBy: On: 29-Sep-2011 Intent Diana Troncoso MD, MD, Diana Nicole Eprescribed prescriptions On: 29-Sep-2011 Intent (G8553)By: Diana Troncoso MD, MD, Dana M Aerosol Treatment (82152)By: On: 12-Jun-2011 Intent Ciesa BMET, Kaitlin IMMUNIZ ADMNIN, 1 VAC, On: 03-Apr-2011 Intent SNGL/COMBO (24421)By: Diana Troncoso MD, MD, Dana M FLU VAC, SPLIT, >3 YEARS, On: 03-Apr-2011 Intent INTRAMUSC (03753)By: Manjit NUNEZ, Diana Troncoso MD, Diana Nicole MAMMOGRAM, SCREENING, BOTH On: 03-Apr-2011 Intent BREASTS (12799)By: Diana Troncoso MD, MD, Dana M Radiology - ChestBy: Ciesa On: 21-Jul-2010 Intent BMET, Kaitlin Pulse Oximetry (03538)By: On: 21-Jul-2010 Intent Ciesa BMET, Kaitlin Aerosol Treatment (90070)By: On: 21-Jul-2010 Intent Ciesa BMET, Kaitlin CT - Abdomen & PelvisBy: On: 22-May-2010 Intent Manjit NUNEZ, Diana Troncoso Comments: wet read Diana Chandra MD Aerosol Treatment (70456)By: On: 10-Mar-2010 Intent Katerine Campo DO Comments: less noise adn more air exchg after aerosol -- still some wheezing and harsh noise Spirometry (57401)By: Alber On: 10-Mar-2010 Intent Katerine SANCHEZ Comments: mild obstruction - with FEV 1 of 83% Solu- Medrol Injection, 125mg On: 10-Mar-2010 Intent (J2930)By: Alber SANCHEZ, Comments: 2ml given im in lt hip [id number] exp 10-18-[address] - Brain/HeadBy: Alber SANCHEZ, On: 10-Mar-2010 Intent Katerine Pulse Oximetry (73832)By: On: 10-Mar-2010 Intent Alber DO, Katerine Kgvvirens-Rce-Lwloz On: 10-Mar-2010 Intent (53988)By: Katerine Campo DO Radiology - ChestBy: Alber On: 10-Mar-2010 Intent Katerine SANCHEZ Solu -Medrol Injection, 125 On: 07-Mar-2010 Intent mg (J2930)By: Radha EDWARDS, Comments: Lot #[id number]-5/12Site-L hip [id number] by:SHIRA Bean Aerosol Treatment (80774)By: On: 07-Mar-2010 Intent Jacquelyn Garcia CNP Pulse Oximetry (67174)By: On: 24-Feb-2010 Intent Jacquelyn Garcia CNP Inhaler Demonstration On: 24-Feb-2010 Intent (07418)By: Jacquelyn Garcia CNP Aerosol Treatment (87853)By: On: 24-Feb-2010 Intent Jacquelyn Garcia CNP ADMINISTRATION OF INFLUENZA On: 03-Feb-2010 Intent VIRUS VACCINE (G0008)By: Kanu Comments: Lot #[id number] 4PExp- 4/11Site- L Dltd/IMDose 0.5mlgiven by: QUINCY SILVA LPN, Megan L FLU VAC, SPLIT, >3 YEARS, On: 03-Feb-2010 Intent INTRAMUSC (38621)By: Kanu MATHEW, Eduardo L FLU VAC, SPLIT, >3 YEARS, On: 31-Jan-2010 Intent INTRAMUSC (99567)By: Augusto CLEMENTS, Comments: injection given in left deltoid,see scanned document/ [facility] IMMUNIZ ADMNIN, 1 VAC, On: 31-Jan-2010 Intent SNGL/COMBO (65713)By: Augusto CLEMENTS, Danita MAMMOGRAM, SCREENING, BOTH On: 25-Jul-2009 Intent BREASTS (08669)By: Manjit NUNEZ, Diana Troncoso MD, Diana Nicole Pulse Oximetry (04024)By: On: 28-Mar-2009 Intent SAMI Orta Flu Vaccine, Split IM On: 11-Jan-2009 Intent (45534)By: Rani MATHEW, Comments: Lot #[id number] 4PExp-5/2009Site-Left deltoidgiven by:FLIP Kruger CurettesBy: Radha EDWARDS, On: 02-Jul-2008 Intent Kaitlin Ear Irrigation (29889)By: On: 02-Jul-2008 Intent Jacquelyn Garcia CNP Aerosol Treatment (62896)By: On: 02-Jul-2008 Intent Jacquelyn Garcia CNP Bio Z (91554)By: Manjit NUNEZ, On: 04-May-2008 Intent Diana Troncoso MD, Diana Nicole EKG (33376)By: Manjit NUNEZ, On: 04-May-2008 Intent Diana Troncoso MD, Diana Nicole Holter Moniter (83004)By: On: 04-May-2008 Intent Manjit NUNEZ, Diana Troncoso MD, Diana Nicole Nuclear Stress Test/Stress On: 04-May-2008 Intent SPECT/AdenosineBy: Manjit NUNEZ, Diana Troncoso MD, Diana Nicole Echo CompleteBy: Manjit NUNEZ, On: 04-May-2008 Intent Diana Pena MD Cartoid DopplerBy: Manjit On: 04-May-2008 Intent , Diana Troncoso MD, Diana Nicole FLU VAC, SPLIT, >3 YEARS, On: 20-Mar-2008 Intent INTRAMUSC (96930)By: Yared, Comments: Lot #[id number]-1/30/08Site-right deltoidDose0.5mlgiven by Caro Armenta IMMUNIZ ADMNIN, 1 VAC, On: 20-Mar-2008 Intent SNGL/COMBO (32767)By: Kathi Vail Radiology - ChestBy: Manjit On: 28-Feb-2008 Intent Diana NUNEZ MD, Diana Nicole Comments: not better end of week INFUSION, NORMAL SALINE On: 06-Jul-2007 Intent SOLUTION , 250 CC (J7050)By: Jacquelyn Garcia CNP THER/PROPH/DIAG IV INF, INIT On: 06-Jul-2007 Intent (57016)By: Jacquelyn Garcia CNP Rocephin Injection, 2 Gram On: 06-Jul-2007 Intent (J0696)By: Jacquelyn Garcia CNP Comments: 2gms infused left hand without problem HYDRATION IV INFUSION, INIT On: 05-Jul-2007 Intent (38362)By: Jacquelyn Garcia CNP Comments: #22 gauge started to left forearm area without difficulty per gosia Vancoymcin 500mg/premixedBy: On: 05-Jul-2007 Intent Jacquelyn Garcia CNP Comments: x2Lot #:[id number] date:09-17-08 Amount given:1 gram Route: IVSite given:left forearm area Given by: gosia speech/language therapist IMMUNIZ ADMNIN, 1 VAC, On: 08-Feb-2007 Intent SNGL/COMBO ([id number])By: Marleni Kang DO FLU VAC, SPLIT, >3 YEARS, On: 08-Feb-2007 Intent INTRAMUSC ([id number])By: Jorge Luis SANCHEZ, Comments: given in left deltoid, 0.5cc, lot#[id number], exp.[phone] WF Marleni Valencia THER/PROPH/DIAG IV INF, INIT On: 24-Jan-2007 Intent ([id number])By: Marleni Kang DO Comments: #22 gauge initiated right forearm without difficulty per gosia INFUSION, NORMAL SALINE On: 24-Jan-2007 Intent SOLUTION , 250 CC ([id number])By: Marleni Kang DO Rocephin Injection, 2 Gram On: 24-Jan-2007 Intent ([id number])By: Marleni Kang DO Comments: Lot #:[id number] date:06-25Amount given:2 grams Route: IVSite given:right forearm Given by: gosia MAMMOGRAM, SCREENING, BOTH On: 26-Aug-2006 Intent BREASTS ([id number])By: Manjit Comments: 10-12-06 , Diana Troncoso MD, Diana Nicole ELECTROCARDIOGRAM, COMPLETE On: 26-Aug-2006 Intent (ECG) ([id number])By: Manjit NUNEZ, Diana Pena MD Planned Medications [...] The patient does have durable power of assistant attorney general and living will. The patient has noticed nothing from the geriatic depress ion scale. Other providers contributing to the patient's care are [employer] freight car cleaner, zoo veterinarian and other: ([facility] Richey).Encounter Diagnosis: BMI 29.0- 29.9,adult, History [...] for Tdap vaccination (Renamed from Need for obzazflrci-bxnocws-ckntzjagd (Tdap) vaccine, adult/adolescent) [facility] [...] Nutrition: balanced diet and supplemental vitamins. The nm dical issues the patient is following up [...] The patient does have durable power of assistant attorney general and living will. The patient has noti silvano nothing from the geriatic depression scale. Other providers contributing to the patient's care are [employer] freight car cleaner (Dr Young), vegetable farm manager (Arin - when had pneumonia but not currently in need of his care at this time), zoo veterinarian (dr Garland), surgeon ([facility] - shoulder) and other: (dentist - Dr Cihu - [facility] - goes every 3 years. Last seen [...] bracelet or put area rugs thro [facility] house. The patient has completed the following preventative measures: PAP smear (many years ago will have today ), mammography () and colonoscopy (2005). The patient does have durable power of assistant attorney general and living will. The patient has noticed nothing from the geriatic depression scale. Other providers contributing to the patient's care are [employer] car cleaner (Dr. Young ), gastrologist (Dr. Cande novak ), zoo veterinarian (Dr. Garcia ) and other: (Dr. Reza [...] oral corticosteroids (celebrex).Encounter Diagnosis: Knee pain, right (929.46) [facility] Phone Encounter On: 25-Nov-2012 [...] visit: still red and tender to touch, [place] took out cyst and dr sifuentesned it.- [...]
--- OUTSIDE RECORDS SUMMARY | 2018-07-07 08:23 | XMS RPT_ITS | Continuity of Care Document ---
:1940 Author Organization [facility] Address [address] [facility] [address] [place] [address] Phone Care Team Providers Name Role Phone [...] MD, Dana M Start : 29-Jun-2017 Active M-Zjqrnykbmueu-Pfaet 7.5-90.314 MG Oral Capsule 1 (one) Capsule [...] 20-May-2017 End : 29-Jun-2017 Inactive Comments:called to [facility] in [place], [phone] Medrol 4 MG Oral Tablet Therapy Pack [...] Quantity: 30 {Tablet} Refills: 6 Ordered:29-Aug-2009 Danita Cassa RN Start : 29-Aug-2009 End : 29-Aug-2009 [...] End : 10-Mar-2010 Discontinued CALCIUM + D, 010-862VE-KOQT (Oral Tablet) 2 qd for 0 days [...] Arthritis (M19.90, 716.90) Comments: Dr. Garcia in [place] stable off meds now doign well last [...] directly onto right side, [facility] has swelling and ecchymosis Status: Resolved as [...] for Tdap vaccination (Renamed from Need for lxzasjrpwz-eknsdec-pmjmcspvl (Tdap) vaccine, adult/adolescent) (Z23, V06.1) Status: Resolved [...] VAC ADLT/IMUMNOSPR, SBC/INTRM Date: 07-Jan-2015 Completed 07-Jan-2015 (58244) Comments: Lot:[id number]:05/01/16Dose:0.5mgRoute:imSite:ganga Roberts By:FRANCA given on 01/03/15VIS signed Colonoscopy Completed Comments: 2005 colonoscopy Completed Comments: Dr Bailey - around age 56 or 66 D&C to get Completed Comments: x3 PACEMAKER IMPLANTATION (46692) Completed Comments: dual chamber 06-29-[address] [facility] [address] Fleming ROTATOR CUFF REPAIR Completed Comments: Left, July 31 2005, Dr Josue Tonsillectomy Completed Tubal Ligation Completed Date Value Details 18-Jan-2018 Cardiology Visit Report Result: Comments: See Note; NOTES: [place] [facility] [place] [address] OFFICE VISIT Date of Service: 01/18/18 MR#: [id number] Acct: [id number] Name: MALI WALDEN Ruchi bazzi #: [id number] : 1940 Provider: ELISE Bah Age/Sex: 77/F [facility] Status: Signed HPI HPI Details: MALI WALDEN, [...] mg PO DAILY 06/08/17 [History Confirmed 01/18/18] Stonewall-3 Fatty Acids/Fish Oil [Fish Oil 1,000 mg [...] Clear to Auscultation Cardio Palpation: normal P TX Rate: regular rate Rhythm: regular rhythm Heart [...] rhythm of AAI pacing at 98 ppm, DATA DESIGNER=0%, AP=96.2%, and battery life estimated to be [...] CT w/CCTA Result: Comments: See Note; NOTES: [facility] Imaging Services [address] [place] [address] w/CCTA MR#: [id number] Acct: [id number] Name: MALI WALDEN Rep #: [id number] : 1940 F 77 From: Archie Alvares MD PCP: Diana Troncoso MD Status: REG CLI Study: Limited Chest CT w/CCTA Date of Exam: 12/16/17 Exam# [id number] Ordering Dr: Diana Troncoso MD STUDY: CT [...] Archie Alvares MD at 9:03 EDT Tel [phone], Service support , CC: Diana Troncoso MD Catalyst Operator Gasoline: Signed 02-Dec-2017 Pacemaker Check Result: Comments: See Note; NOTES: [place] [facility] [address] [place] [address] Pacemaker Check Date of Service: 12/01/172006 MR#: [id number] Acct: [id number] Name: EDDIE WALDEN Rep #: [id number] : 1940 From: Nishi Johnson Age/Sex: 77/F Location: [facility] Status: Signed 12/01/172008 <Electronically signed by Nishi Johnson > Date Nishi Johnson 12/02/17 0855<Electronically signed by Manoj Young MD> Cosigner Signature: Date (if applicable) Manoj Young MD CC: 04-Sep-2017 Cardiology Visit Report Result: Comments: See Note; NOTES: [place] [facility] [place] [address] [place] [address] OFFICE VISIT Date of Service: 09/03/17 MR#: [id number] Acct: [id number] Name: MALI WALDEN p #: [id number] : 1940 Provider: Amna Vang Age/Sex: 76/F Location: [facility] Status: Signed HPI HPI Details: MALI WALDEN, [...] 29.0 Intake Visit Reasons: 3 M FU Wrapper Dipper Required: No Accompanied by: none Is patient [...] mg PO DAILY 06/08/17 [History Confirmed 09/03/17] Stonewall-3 Fatty Acids/Fish Oil [Fish Oil 1,000 mg [...] Pacemaker Check Result: Comments: See Note; NOTES: [facility] [place] [facility] 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 6 wk post implant check [...] rhythm shows AAI pacing @ 71 ppm. DATA DESIGNER=0.1%. Estimated battery life 9 yrs. Device and lead measurements stable. Decreased A/V amplitudes with adequate safety margin to preserve battery longevity. Counters cleared. Next remote f/u appt scheduled for in 3 mos. Device Device Date Interviewed: 08/20/17 Follow-up Location: in office Interview Reason: scheduled follow up Manufact urer: Medtronic Name: Fazal GALLOWAY Model: A2DR01 Serial #: [id number] Implant Date: 06/28/17 Year(s): 0 Implant Physician: Dr. Brennan Fleming/[facility] Patient Characteristics Atrial Indication: sick sinus synd gino, Paroxysmal atrial fibrillation Patient Substrate: Arrhythmia Underlying rhythm: Sinus bradycardia Pacemaker Dependent: No Device Characteristics Device: Dual Chamber Type: Pacemaker Remote Follow- Up: [facility] Device Physical Exam Yes Incision well healed Leads Lead #1 Health Information Coder Lead 1: Medtronic Model Lead 1: 5076/45 Serial# Lead 1: [id number] Date Implanted Lead 1: 06/28/17 Position Lead 1 : RA Lead #2 Health Information Coder Lead 2: [employer] Model Lead 2: 5076/52 Serial# Lead 2: [id number] Date Implanted Lead 2: 06/28/17 Position Lead [...] Discharge Instruction Result: Comments: See Note; NOTES: [facility] Medical Records Department [address] [place] [address] Instructions for Home/Discharge Instructions 06/29/17 1042 MR#: [id number] Acct: [id number] Name: MALI WALDEN Rep #: [id number] : 1940 76 From: Brennan Fleming MD PCP: Diana Troncoso MD Status: [facility] Discharge Diet: No Restrictions Discharge [...] call your doctor's office or Doctor's Registry ([phone]) Call 911 or go to the nearest [...] mg tablet 12.5 mg PO DAILY 06/08/17 Stonewall-3 Fatty Acids/Fish Oil [Fish Oi l 1,000 mg Capsule] 1 each PO DAILY 06/28/17 Primary Care Physician: Diana Troncoso MD [Primary Care Provider] - When: pacer nurse 06/29/17 1050 <Electronically signed by Brennan Fleming MD&am p;#62; Date Brennan Fleming MD CC: Diana Troncoso MD 29-Jun-2017 Chest 1 View Result: Comments: See Note; NOTES: [facility] Imaging Services [address] [place] [address] Chest 1 View MR#: [id number] Acct: [id number] Name: MALI WALDEN Rep #: [id number] : F 76 From: Liam Arreaga PCP: Diana Troncoso MD Status: [facility] Study: Chest 1 View Date of Exam: 06/29/17 Exam# [id number] Ordering Dr: Brennan Fleming MD STUDY: X-RAY [...] CC: Brennan Fleming MD; Diana Troncoso MD Catalyst Operator Gasoline: Signed 29-Jun-2017 Chest PA and Lateral Result: Comments: See Note; NOTES: [facility] Imaging Services [address] [place] [address] Chest PA and Lateral MR#: [id number] Acct: [id number] Name: MALI WALDEN Rep #: [id number] : 1940 F 76 From: Liam Arreaga PCP: Diana Troncoso MD Status: REG [facility] Study: Chest PA and Lateral Date of Exam: 06/29/17 Exam# [id number] Ordering Dr: Brennan Fleming MD STUDY: X-RAY [...] CC: Brennan Fleming MD; Diana Troncoso MD Catalyst Operator Gasoline: Signed 22-Jun-2017 Office Visit Report Result: Comments: See Note; NOTES: [facility] Services [address] [address] OFFICE VISIT Date of Service: 06/21/17 MR#: [id number] Acct: [id number] Patient: MALI WALDEN Rep #: [id number] : 1940 Provider: Nishi Johnson Age/Sex: 76/F [place] [facility] Status: Signed Comments Summary Comments: Pacemaker instructions, [...] Stress Report Result: Comments: See Note; NOTES: [facility] Cardiovascular Services [address] [place] [address] MR#: [id number] Acct: [id number] Name: MALI WALDEN Rep #: [id number] : [birth year] 76 From: Brennan Fleming MD [...] Vang Date Dictated: 06/15/17921 Date Transcribed: 06/15/17921 Catalyst Operator Gasoline: CO Signed 09-Jun-2017 Cardiology Visit Report Result: Comments: See Note; NOTES: [facility] [address] [place] [address] OFFICE VISIT Date of Service: 06/08/17 MR#: [id number] Acct: [id number] Name: JORGEMALINAY bazzi #: [id number] : 1940 Provider: Amna Vang Age/Sex: 76/F Location[facility] Status: Signed HPI HPI Details: MALI WALDEN, [...] was in the hospital last month in [place]. She was lightheaded and dizzy. 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, vomiting blood/hematemesis, bright, red blood in [...] (if applicable) Manoj Young MD CC: Diana Torncoso MD 28-Apr-2017 Chest PA and Lateral Result: Comments: See Note; NOTES: [facility] Imaging Services [address] [place] [address] Chest PA and Lateral MR#: [id number] Acct: [id number] Name: MALI WALDEN Rep #: [id number] : 1940 F 76 From: Tex Junior DO PCP: Diana Troncoso MD Status: [facility] CLI Study: Chest PA and Lateral Date of Exam: 04/28/17 Exam# [id number] Ordering Dr: Katerine Campo DO STUDY: X-RAY [...] Tex Junior DO at 9:39 EST Tel [phone], Service support , CC: Diana Troncoso MD; Katerine Campo DO Catalyst Operator Gasoline: Signed 02-Mar-2017 SCREENING MAMM (CAD), BILAT Result: Comments: See Note; NOTES: [facility] Imaging Services [address] [place] [address] SCREENING MAMM (CAD), BILAT MR#: [id number] Acct: [id number] Name: MALI WALDEN Rep #: [id number] : 1940 F 76 From: Archie Alvares MD PCP: Diana Troncoso MD Status: REG CLI Study: SCREENING MAMM (CAD), BILAT Date of Exam: 03/02/17 Exam# [id number] Ordering Dr: Diana Troncoso MD MA MMOGRAPHY [...] delay biopsy of a clinically suspicious abnormality. [id number] Electronically Signed: Archie Alvares MD at 16:04 EST Tel [phone], Service support , CC: Diana Troncoso MD Catalyst Operator Gasoline: Signed 03-Jan-2017 Inital Evaluation (1) - PT Result: Comments: See Note; NOTES: [facility] [address] [place] [address]. [address] [place] [id number] Fax REHABILITATION SERVICES INITIAL EVALUATION MR#: [id number] Acct: [id number] Name: MALI WALDEN Rep #: [id number] : 1940 76 From: Moody Tang DPT Referring Dr.: Berto Carrillo MD Status: REG RCR [facility] Visit Information MALI WALDEN is [...] gym exercises with increased tolerance. 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 Please let me know if there are questions or concerns regarding this plan of care . Physician Signature: Date: <Electronically signed by Moody Tang DPT> 01/03/17 1457 CC: Diana Troncoso MD; Berto lawrence MD CLS Signed For Medicare only, by signing this I certify the plan of care. Physicians Signature Date 03-Dec-2016 Carotid Duplex Ultrasound Result: Comments: See Note; NOTES: [facility] Cardiovascular Services [address] [place] [address] Carotid Duplex Ultrasound 12/03/16 1106 MR#: [id number] Acct: [id number] Name: MALI WALDEN Rep #: [id number] : 1940 76 From: Charlie Aragon MD [...] the left vertebral artery. Procedure Carotid Duplex 92019. The exam was diagnostic. Exam performed in department. Interpretation Summary M ild (<50%) stenosis right extracranial internal carotid. Mild (<50%) stenosis left extracranial internal carotid. Flow within the vertebral arteries is antegrade bilaterally. Ordering Physician: Manoj Young Performed By: Rey Sánchez, RVT 12/03/162032 Date Charlie Aragon MD CC: Diana Troncoso MD; Manoj Young MD Date Dictated: 12/03/16 1106 Date Transcr ibed: 12/03/162032 Catalyst Operator Gasoline: Signed 28-Jul-2016 PT D/C Summary (1) Result: Comments: See Note; NOTES: [facility] [place] [address] Fax [facility] MR#: [id number] Acct: [id number] Name: MALI WALDEN Rep #: [id number] : 1940 75 From: Yolanda Cassidy PT, Cert. MDT Referring Dr.: Diana Troncoso MD Status: REG RCR Insurance: [facility] - PT D/C Summary It has been [...] PAIN NOW. DID A WORK SHOP IN [place] WEDNESDAY AND MADE A POT ON THE [...] please feel free to call me at [phone] . Thank you for the referral of this patient. Sincerely, Yolanda Cassidy <Electronically signed by Yolanda Cassidy PT, Cert. MDT> 07/28/16 1143 CC: Diana Troncoso MD TERESSA Signed 26-Jun-2016 Chest PA and Lateral Result: Comments: See Note; NOTES: [facility] Imaging Services [address] [place] [address] Verdana 4d Chest PA and Lateral MR#: [id number] Acct: [id number] Name: MALI WALDEN Vikas Rep #: [id number] : 1940 F 75 From: Rubens Waters MD PCP: Diana Troncoso MD Status: REG CLI Study: Chest PA and Lateral Date of Exam: 06/26/16 Exam# [id number] Ordering Dr: Marleni Kang DO STUDY: X-RAY [...] at 13:11 EST Tel , Service support [phone], CC: Diana Troncoso MD; Marleni Kang DO Catalyst Operator Gasoline: Signed 20-May-2016 Re-Evaluation - PT (1) Result: Comments: See Note; NOTES: [facility] [address] [place] [address]. [address] [place], [place] [address] Fax REEVALUATION / MEDICARE RECERTI FICATION [place] 4d PHYSICAL THERAPY MR#: [id number] Acct: [id number] Name: MALI WALDEN Rep #: [id number] : 1940 75 From: Yolanda Cassidy PT, Cert. 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 Sincerely, Yolanda Cassidy < Electronically signed by Yolanda Cassidy PT, Cert. MDT> 05/20/16 1026 CC: Diana Troncoso MD TERESSA Signed For Medicare only, by signing this I certify the plan of care. _ Physicians Signature Date 07-May-2016 Liver Result: Comments: See Note; NOTES: [facility] Imaging Services [address] [place] [address] Verdana 4d Liver MR#: [id number] Acct: [id number] Name: MALI WALDEN Rep #: [id number] : 1940 F 75 From: Archie Alvares MD PCP: Diana Troncoso MD Status: REG CLI Study: Liver Date of Exam: 05/07/16 Exam# [id number] Ordering Dr: Diana Troncoso MD STUDY: ABDOMINAL [...] Archie Alvares MD at 10:59 EST Tel [phone], Service support [phone], CC: Diana Troncoso MD Catalyst Operator Gasoline: Signed 23-Apr-2016 Inital Evaluation (1) - PT Result: Comments: See Note; NOTES: [facility] [address] [place] [address]. [address] [place] [address] Fax REHABILITATION SERVICES INITIAL EVALUATION MR#: [id number] Acct: [id number] Name: MALI WALDEN Rep #: [id number] : 1940 75 From: Yolanda Cassidy PT, Cert. MDT Referring Dr.: Diana Troncoso MD Status: REG RCR [facility] Patient's Visit Information MALI WALDEN is a [...] be FAXED BACK to u s at [phone] for Medicare purposes. Please let me know [...] with Pelvis Result: Comments: See Note; NOTES: [facility] Imaging Services [address] [place] [address] Verda 4d Hip 2-3 Views with Pelvis MR#: [id number] Acct: [id number] Name: MALI WALDEN Rep #: [id number] : 1940 F 75 From: Archie Alvares MD PCP: Diana Troncoso MD Status: REG CLI Study: Hip 2-3 Views with Pelvis Date of Exam: 02/10/16 Exam# [id number] Ordering Dr: Diana Troncoso MD STUDY: X-RAY [...] Archie Alvares MD at 13:03 EDT Tel [phone], Service support [phone], CC: Diana Troncoso MD Catalyst Operator Gasoline: Signed 10-Feb-2016 L/S Spine Min 4 Views Result: Comments: See Note; NOTES: [facility] Imaging Services [address] [place] [address] [place] 4d L/S Spine Min 4 Views MR#: [id number] Acct: [id number] Name: MALI WALDEN Rep #: [id number] : 1940 F 75 From: Archie Alvares MD PCP: Diana Troncoso MD Status: REG CLI Study: L/S Spine Min 4 Views Date of Exam: 02/10/16 Exam# [id number] Ordering Dr: Diana Troncoso MD S TUDY: [...] Archie Alvares MD at 12:46 EDT Tel [phone], Service support [phone], CC: Diana Troncoso MD Catalyst Operator Gasoline: Signed 22-Jan-2016 Bilat Scrn Digital AND CAD Result: Comments: See Note; NOTES: [facility] Imaging Services [address] [place] [address] Verdana 4d Bilat Scrn Digital AND CAD MR#: [id number] Acct: [id number] Name: MALI WALDEN Rep #: [id number] : 1940 F 75 From: Archie Alvares MD PCP: Diana Troncoso MD Status: REG CLI Study: Bilat Scrn Digital AND CAD Date of Exam: 01/22/16 Exam# [id number] Ordering Dr: Dereck Troncoso MD MAMMOGRAPHY - [...] delay biopsy of a clinically suspicious abnormality. [id number] Electronically Signed: Archie Alvares MD at 10:36 EDT T [phone], Service support [phone], CC: Diana Troncoso MD Catalyst Operator Gasoline: Signed 08-Feb-2015 Emergency Department Summary Result: Comments: See Note; NOTES: [facility] Medical Records Department [address] [place] [address] Emergency Department Summary MR#: [id number] Acct: [id number] Name: MALI WALDEN Rep #: [id number] : 1940 74 From: Solomon Morse MD [...] C: Diana Ribeiro MD T: NTS JOB: [id number] 02/08/15 0119 <Electronically signed by Solomon Morse MD> Date Solomon Morse MD Cosigner Signature (If Indicated): Date CC: Diana Troncoso MD; Naga Ribeiro Date Dictated: 02/07/151633 Date Transcribed: 02/07/151633 Catalyst Operator Gasoline: Signed 07-Feb-2015 Discharge Instruction Result: Comments: See Note; NOTES: [facility] Medical Records Department [address] [place] [address] Discharge Instruction 02/07/151630 MR#: [id number] Acct: [id number] Name: MALI WALDEN Rep #: [id number] : 1940 74 From: Solomon Morse MD [...] problems, contact your doctor. Call Doctors Registry ([phone]) or report to the closest Emergency Room. Call 911 if necessary. 02/07/15 1632 <Electronically signed by Solomon Morse MD> Date Solomon Morse MD Cosigner Signature (If Indicated): Date CC: Diana Troncoso MD 18-Jan-2015 Nuclear Stress Test - Treadmil Result: Comments: See Note; NOTES: [facility] Imaging Services [address] [place] [address] STRESS TEST REPORT 01/18/15 0925 MR#: [id number] Acct: [id number] Name: MALI WALDEN Rep #: [id number] : 1940 74 From: Manoj Young MD [...] LVEF of 67%. Manoj Young MD T: [facility] JOB: [id number] 01/18/15 1221 <Chapito jara signed by Manoj Young MD> Date Manoj Young MD CC: Diana Troncoso MD; Manoj Young MD Date Dictated: 01/18/15924 Date Lux scribed: 01/18/15924 Catalyst Operator Gasoline: Signed 16-Jan-2015 Bilat Scrn Digital AND CAD Result: Comments: See Note; NOTES: [facility] Imaging Services [address] [place] [address] Breast Imaging Report MR#: [id number] Acct: [id number] Name: MALI WALDEN Rep #: [id number] : 1940 F 74 From: Archie Alvares MD PCP: Diana Troncoso MD Status: REG CLI Study: Bilat Scrn Digital AND CAD Date of Exam: 01/16/15 Exam# [id number] Ordering Dr: Diana Troncoso MD MAMMOGRAPHY - [...] Archie belle MD at 15:35 EDT Tel [phone], Service support [phone], CC: Diana Troncoso MD Catalyst Operator Gasoline: Signed 16-Dec-2014 Emergency Department Summary Result: Comments: See Note; NOTES: [facility] Medical Records Department [address] [place] [address] Emergency Department Summary MR#: [id number] Acct: [id number] Name: MALI WALDEN Rep #: [id number] : 1940 74 From: George Colvin DO [...] condition. George Colvin DO T: NTS JOB: [id number] 12/16/14 1607 <Electronically signed by George Colvin DO> Date George Colvin DO Cosigner Signature (If Indicated): Date CC: Diana Troncoso MD Date D ictated: 12/16/141039 Date Transcribed: 12/16/141039 Catalyst Operator Gasoline: Signed 16-Dec-2014 Discharge Instruction Result: Comments: See Note; NOTES: [facility] Medical Records Department [address] [place] [address] Discharge Instruction 12/16/14 1036 MR#: [id number] Acct: [id number] Name: MALI WALDEN Rep #: [id number] : 1940 74 From: George Colvin DO PCP: Diana Troncoso MD Status: REG ER ED Disposition - Plan for ED Patient: Chief Complaint: Abd Pain Instructions: ED Di verticulitis Prescriptions: Hydrocodone Bitart/Apap 5-325 [[place] 5/325] 1 - 2 tablet PO Q4H [...] problems, contact your doctor. Call Doctors [facility] ([phone]) or report to the closest Emergency Room. Call 911 if necessary. 12/16/14 1037 <Electronically signed by George martines DO> Date George Colvin DO Cosigner Signature (If Indicated): Date CC: Diana Troncoso MD 16-Dec-2014 Abdomen/Pelvis without Cont Result: Comments: See Note; NOTES: [facility] Imaging Services [address] [place], [place] [address] CAT Scan Report MR#: [id number] Acct: [id number] Name: MALI WALDEN Rep #: [id number] : 1940 F 74 From: Miguel Tidwell PCP: Diana Troncoso MD Status: REG ER Study: Abdomen/Pelvis without Cont Date of Exam: 12/16/14 Exam# [id number] Ordering Dr: George Colvin DO STUDY: CT [...] Sagittal and coronal images were reconstructed. [facility]: July 30, 2010 FINDINGS: The visualized lung [...] at 10:32 EDT Tel , Service support [phone], CC: Diana wright MD; George Colvin DO Catalyst Operator Gasoline: Signed 13-Nov-2014 Echocardiogram Complete Result: Comments: See Note; NOTES: [facility] Cardiovascular Services [address] [place] [address] Echo Complete 11/13/14 0720 MR#: [id number] Acct: [id number] Name: MARÍA ELENA WALDEN E Rep #: [id number] : 1940 74 From: Manoj Young MD Attending Dr: Manoj Young MD Status: REG CLI Ordering Dr: Manoj Young MD Date: 11/13/14 Location: [facility] Sex: F C Admitted: Procedure This was [...] MD Date Dictated: 11/13/14719 Date Transcribed: 11/13/142054 Catalyst Operator Gasoline: Signed 22-Aug-2014 PT Discharge Summary Result: Comments: See Note; NOTES: [facility] [place], [place] [address] Fax REHABILITATION SERVICES DISCHARGE SUMMARY MR#: [id number] Acct: [id number] Name: MALI WALDEN Rep #: [id number] : 1940 73 From: Anibal Decker Referring [...] program and has a membership here at [facility] as she will continue on her [...] followup. Anibal Decker, PT T: NTS JOB: [id number] <Electronically signed by Anibal Decker > 08/22/14 0746 CC: Signed 02-Jul-2014 Chest PA and Lateral Result: Comments: See Note; NOTES: [facility] Imaging Services [address] [place] [address] Radiology Report MR#: [id number] Acct: [id number] Name: MALI WALDEN Rep #: [id number] : 1940 F 73 From: Rubens Waters MD PCP: Diana Troncoso MD Status: REG CLI Study: Chest PA and Lateral Date of Exam: 07/02/14 Exam# [id number] Ordering Dr: Diana Troncoso MD STUDY: X-RAY [...] at 14:51 EDT Tel , Service support [phone], RAD/Chest PA and Lateral IMPRESSION: No acute pulmonary process, no interval change. Electronically Signed: Jroge Waters MD at 14:51 EDT Tel , Service support [phone], CC: Diana Troncoso MD Catalyst Operator Gasoline: Signed 28-Jun-2014 Inital Evaluation - PT Result: Comments: See Note; NOTES: [facility] [address] [place] [address] Fax REHABILITATION SERVICES INITIAL EVALUATION MR#: [id number] Acct: [id number] Name: MALI WALDEN Rep #: [id number] : 1940 73 From: Anibal Decker Referring [...] one fall was on a trip to [employer] when the dog walked in front of [...] is a [employer] member here at [employer], but has not been able to get [...] reciprocal heel and toe tapping is good. Kuwm-tp-grab test is good. Re ciprocal hand tapping [...] will score at least 64/80 on [facility] functional scale to help show [...] spent 5 minutes on a NuStep. Anibal Decekr, PT T: NTS JOB: [id number] <Electronically signed by Anibal Decker > 06/28/14 0929 CC: DD: 0 06/27/14 Signed For Medicare only, by signing this I certify the plan of care. Physicians Signature Date 06-Jun-2014 Chest PA and Lateral Result: Comments: See Note; NOTES: [facility] Imaging Services [address] [place] [address] Radiology Report MR#: [id number] Acct: [id number] Name: MALI WALDEN Rep #: [id number] : 1940 F 73 From: Archie Alvares MD PCP: Diana Troncoso MD Status: REG CLI Study: Chest PA and Lateral Date of Exam: 06/06/14 Exam# [id number] Ordering Dr: Jacquelyn Garcia STUDY: X-RAY CHEST [...] Archie Alvares MD at 15:28 EST Tel [phone], Service support [phone], CC: Jacquelyn Garcia; Diana Troncoso MD Catalyst Operator Gasoline: Signed 09-Apr-2014 Knee 4 or More Views Result: Comments: See Note; NOTES: [facility] Imaging Services [address] [place] [address] Radiology Report MR#: [id number] Acct: [id number] Name: MALI WALDEN Rep #: [id number] : 1940 F 73 From: Rubens Waters MD PCP: Diana Troncoso MD Status: REG CLI Study: Knee 4 or More Views Date of Exam: 04/09/14 Exam# [id number] Ordering Dr: Katerine Campo DO STUDY: X-RAY [...] MD at 12:15 EST , Service support [phone], CC: Diana Troncoso MD; Katerine Campo DO Catal[employer]: Signed 09-Apr-2014 Ribs Unil 2V No CXR Result: Comments: See Note; NOTES: [facility] Imaging Services [address] [place] [address] Radiology Report MR#: [id number] Acct: [id number] Name: MALI WALDEN Rep #: [id number] : 1940 F 73 From: Rubens Waters MD PCP: Diana Troncoso MD Status: REG CLI Study: Ribs Unil 2V No CXR Date of Exam: 04/09/14 Exam# [id number] Ordering Dr: Katerine Campo DO STUDY: X-RAY [...] MD at 12:11 EST , Service support [phone], CC: Diana Troncoso MD; Katerine Campo DO Catalyst Operator Gasoline: Signed 07-Feb-2014 Liver Result: Comments: See Note; NOTES: [facility] Imaging Services [address] [place] [address] Ultrasound Report MR#: [id number] Acct: [id number] Name: MALI WALDEN Rep #: [id number] : 1940 F 73 From: Archie Alvares MD PCP: Diana Troncoso MD Status: REG CLI Study: Liver Date of Exam: 02/07/14 Exam# [id number] Ordering Dr: Jacquelyn Garcia STUDY: ABDOMINAL ULTRASOUND [...] Alvares MD at 10:36 ED T Tel [phone], Service support [phone], CC: Jacquelyn Garcia; Diana Troncoso MD Catalyst Operator Gasoline: Signed 25-Sep-2013 Ribs Unil 2V No CXR Result: Comments: See Note; NOTES: [facility] Imaging Services [address] [place] [address] Radiology Report MR#: [id number] Acct: [id number] Name: MALI WALDEN Vikas Rep #: [id number] : 1940 F 72 From: Archie Alvares MD PCP: Diana Troncoso MD Status: REG CLI Study: Ribs Unil 2V No CXR Date of Exam: 09/25/13 Exam# [id number] Ordering Dr: Jacquelyn Garcia STUDY: X-RAY - [...] Archie Alvares MD at 15:44 EDT Tel [phone], Service support [phone], Fax CC: Jacquelyn Garcia; Diana Troncoso MD Catalyst Operator Gasoline: Signed 22-Aug-2013 [employer]iss[employer] Result: Comments: See Note; NOTES: [facility] Imaging Services [address] [place], [place] [address] Breast Imaging Report MR#: [id number] Acct: [id number] Name: MALI WALDEN Rep #: [id number] : 1940 F 72 From: Archie Alvares MD PCP: Diana Troncoso MD Status: REG CLI Exam# [id number] Ordering Dr: Diana Troncoso MD MAMMOGRAPHY - [...] Signed: Corey Monson at 11:24 EDT Tel [phone], Service support [phone], CC: Diana Troncoso MD Catalyst Operator Gasoline: Signed Immunization Name Dates Details Influenza (3 years and up) on: 08-Feb-2007 Comments: given in left deltoid, 0.5cc, lot#[id number], exp.10.17.07 WF Influenza (3 years and up) on: 20-Mar-2008 Comments: Lot #[id number]-7/30/08Site-right deltoidDose0.5mlgiven by Caro Vail LPN Influenza (3 years and up) on: 11-Jan-2009 Comments: Lot #[id number] 4PExp-08/2009Site-Left deltoidgiven by:FLIP Pneumococcal (2 years and up) on: 07-Jan-2015 Comments: Site: Deltoid (Left) Lot #: <Undefined> Pneumococcal conjugate vaccine, 13 valent, IM Comments: winter 2016 [facility] Family History Unknown Family Member Name Dates Details Brother 1 Comments: Bladder CA, prostate, smoker Status: Active Brother 2 Comments: of [place] 66yo, obese Status: Active Daughter 1 Comments: [...] kg/m2 Body Surface Area Calculated 1.76 m2 82-Upl-438334:53 Pulse 58 /min Comments: Pattern: Regular Respiration [...] copy of this report has been sent [phone].PATIENT NOT FASTINGPERFORMED BY: LabCoEnglewood Hospital and Medical CenterIhyfsk2876 [facility] [id number] Info rmation: FX [phone] (08589) ALT (SGPT) 47 [iU]/L (Abnormal) Range: 0-32 AST (SGOT) 32 [iU]/L (Normal) Range: 0-40 Alkaline Phosphatase 90 [iU]/L (Normal) Range: 39-117 Bilirubin, Direct 0.19 mg/dL (Normal) Range: 0.00-0.40 Bilirubin, Total 0.7 mg/dL (Normal) Range: 0.0-1.2 Albumin 4.5 g/dL (Normal) Range: 3.5-4.8 Protein, Total 6.8 g/dL (Normal) Range: 6.0-8.5 :20 LDL Cholesterol (Direct) Comments: PATIENT WAS FASTINGPERFORMED BY: Structured PolymersEnglewood Hospital and Medical CenterTdujgq5409 [facility] [id number] LDL Chol. (Direct) 83 mg/dL (Normal) Range: 0-99 : Written Authorization WAR (Normal) Comments: PATIENT WAS FASTINGPERFORMED BY: Hallpass MediaMclaren Northern Michigan6370 [facility] [id number] Comments: Written Authorization Received.Authorization received from EDUARDO BATEMAN LPN [id number] by Holley Ma :20 Metabolic Panel, Comments: PATIENT WAS FASTINGPERFORMED BY: LabSalem [facility] Hospital1447 [facility] [id number] BY: Hallpass MediaMclaren Northern Michigan6370 [facility] [id number] [facility] (00823) ALT (SGPT) 38 [iU]/L (Abnormal) Range: 0-32 [...] 8-27 Glucose 126 mg/dL (Abnormal) Range: 65-99 48-Xen-86846:20 LIPOPROTEIN, BLD, BY NMR Comments: PATIENT WAS FASTINGPERFORMED BY: BN [facility] [address] [id number] BY: CB [facility] Oclrdj4590 [facility] [id number] (03382) LP-IR Score 66 (Abnormal) Comments: INSULIN RESISTANCE [...] were developed and their performance characteristicsdetermined by [employer]. These assays have not been cleared by [...] 1600 - 2000 Very High > 2000 97-Xys-80075:24 HEPATIC FUNCTION PANEL Comments: PATIENT WAS FASTINGPERFORMED BY: BN [facility] [address] [id number] BY: CB [facility] Vyzkkw7964 [facility] [id number] (32663) ALT (SGPT) 34 [iU]/L (Abnormal) Range: 0-32 AST (SGOT) 30 [iU]/L (Normal) Range: 0-40 Alkaline Phosphatase 102 [iU]/L (Normal) Range: 39-117 Bilirubin, Direct 0.14 mg/dL (Normal) Range: 0.00-0.40 Bilirubin, Total 0.7 mg/dL (Normal) Range: 0.0-1.2 Albumin 4.4 g/dL (Normal) Range: 3.5-4.8 Protein, Total 6.7 g/dL (Normal) Range: 6.0-8.5 73-Mnx-56162:24 LIPOPROTEIN, BLD, BY NMR Comments: PATIENT WAS FASTINGPERFORMED BY: BN [facility] Vhejsbmzjk7683 [facility] [id number] BY: CB [facility] Wwbmcl0499 [facility] [id number]; fu 8-20 DB (10170) LP-IR Score 64 (Abnormal) Comments: INSULIN RESISTANCE [...] were developed and their performance characteristicsdetermined by [employer]. These assays have not been cleared by [...] 1600 - 2000 Very High > 2000 71-Tfs-095412:19 Basic Metabolic Profile (BMP) Comments: Order Date: 07/30/17Order Info: 0667-1 - [facility] [address], [address] GAP 10 (Normal) Range: 5-15 CO2 27.0 [...] A.D.A. criteria.Please note revised GLUCOSE reference range wvgjbaplj51/02/2018. 74-Ioa-170374:19 CBC W/Diff, Automated Comments: Order Date: 07/30/17Order Info: 0184-1 - CBCDOrder Info: 19115-8 [facility] [address] [place], [place], [address] Absolute Lymph 2.02 {X10_3/ul} (Normal) Range: 0.83-4.51 [...] 4.2-5.4 WBC 10.0 K/mm3 (Normal) Range: 4.4-11.0 05-Xey-412585:19 Erythrocyte Sed Rate Comments: Order Date: 07/30/17Order Info: 0184-1 - CBCDOrder Info: 46637-3 - [facility] [address]vxto[address] [place], [place], [address] SED RATE 26 mm/h (Normal) Range: 0-30 01-Tlv-782405:59 Urinalysis, Office (17086) UA - LEUKOCYTE ESTERASE Negative (Normal) UA - NITRITE Negative (Normal) URINE UROBILINGN SILVESTRE TIMED Normal mg/dL (Normal) UA - PROTEIN Negative mg/dL (Normal) UA - PH 7 (Normal) UA - BLOOD Negative (Normal) UA - SPECIFIC GRAVITY 1.015 (Normal) UA - KETONES Negative mg/dL (Normal) UA - BILIRUBIN Negative (Normal) UA - GLUCOSE Negative (Normal) 5-Nfa-615681:01 Basic Metabolic Profile (BMP) Comments: [facility] [address] [place], [place], [address] GAP 7 (Normal) Range: 5-15 CO2 26.0 [...] Comments: Please note revised GLUCOSE reference range dyywavigi76/02/2018. 0-Ogz-104249:01 CBC-Complete Blood Cnt No Diff Comments: [facility] [address] [place], [place], [address] MPV 10.5 fL (Normal) Range: 6.2-12.0 PLT [...] Range: 4.4-11.0 :01 Prothrombin Time w/INR Comments: [facility] [address] [place], [place], [address] INR 1.0 (Normal) PROTIME 12.7 s (Normal) Range: 11.7-14.9 4-Gar-487568:01 Urinalysis, Complete Comments: How was Urine Obtained? COST CONTROL ANALYST TO [facility] [address] [place], [place], [address] MUCUS, URINE 0 SEEN {/hpf} (Normal) BACTERIA [...] (Normal) CLARITY Clear (Normal) COLOR Yellow (Normal) 1-Akq-124297:37 Urinalysis, Office (09081) UA - LEUKOCYTE ESTERASE Negative (Normal) UA - NITRITE Negative (Normal) URINE UROBILINGN SILVESTRE TIMED 2 mg/dL (Normal) UA - PROTEIN Negative mg/dL (Normal) UA - PH 7.0 (Normal) UA - BLOOD Negative (Normal) UA - SPECIFIC GRAVITY 1.010 (Normal) UA - KETONES Negative mg/dL (Normal) UA - BILIRUBIN Negative (Normal) UA - GLUCOSE Negative (Normal) 59-Nzz-056608:00 URINE RASHAD CULTURE-SILVESTRE COL Comments: PATIENT NOT FASTINGPERFORMED BY: [employer] Rciwut5450 [facility] [id number] Information: SRC:UC COUNT (01960) Antimicrobial MIHEAD (Normal) Comments: S = Susceptible; [...] mL (Abnormal) Urine Final report Culture,Comprehensive (Abnormal) 25-Bap-52416:06 Urinalysis, Office (44416) UA - LEUKOCYTE ESTERASE Large (Normal) UA [...] METABOLIC PANEL, Comments: PATIENT WAS FASTINGPERFORMED BY: Structured Polymers[address] [id number] BY: Structured PolymersDawn [place] [address]70 [facility] [id number] COMPREHENSIVE (11666) ALT (SGPT) 45 [iU]/L (Abnormal) Range: 0-32 [...] Comments: PATIENT WAS FASTINGPERFORMED BY: BN [facility] [address] [id number] BY: CB [facility] Xplrlj5889 [facility] [id number] (53246) LP-IR Score 52 (Abnormal) Comments: INSULIN RESISTANCE MARKER <--Insulin Sensitive Insulin Resistant--> Percentile in Reference PopulationInsulin Resistance ScoreLP-IR Score Low 25th 50th 75th High <27 27 45 63 >63LP-IR Score is inaccurate if patient is non-fasting. .The LP-IR score is a laboratory developed i [employer] that has beenassociated with insulin resistance and [...] were developed and their performance characteristicsdetermined by [employer]. These assays have not been cleared by [...] 2000 Very High > 2000 23-Aug-20179:42 TSH (16945) Comments: PATIENT WAS FASTINGPERFORMED BY: Hallpass Media[address] [id number] BY: LabCo Ipzwse3334 Xavier RoadDublin [place] [id number] TSH 2.070 {uIU/mL} (Normal) Range: 0.450-4.500 4-Pvl-501793:34 Vitamin B-12 (cyanocobalamin) Comments: these ones today; PATIENT NOT FASTINGPERFORMED BY: Lab[address] [id number] BY: Lab[facility] Guoifz5325 Xavier RoadDublin [place] [id number] (46835) Vitamin B12 677 pg/mL (Normal) Range: 211-946 6-Zbz-181143:34 RPR (RAPID PLASMA Comments: PATIENT NOT FASTINGPERFORMED BY: [employer] Polymers[address] [id number] BY: Lab[facility] Sumzpv4091 Xavier RoadDublin [place] [id number] REAGIN) (06987) RPR Non Reactive (Normal) 3-Kbx-939341:34 Methymalonic Acid, Serum Comments: PATIENT NOT FASTINGPERFORMED BY: Hallpass Media[address] [id number] BY: LabCo Eybzcn0091 Xavier RoadDublin [place] [id number] Information: I51248, 848455 (70899) Methylmalonic Acid, Serum 176 nmol/L (Normal) Range: 0-378 9-Pbx-314525:18 HEPATIC FUNCTION PANEL Comments: PATIENT WAS FASTINGPERFORMED BY: [address] [id number] BY: LabCo Wedxtr7526 Xavier RoadDublin [place] [id number] (61054) ALT (SGPT) 36 [iU]/L (Abnormal) Range: 0-32 AST (SGOT) 32 [iU]/L (Normal) Range: 0-40 Alkaline Phosphatase, S 104 [iU]/L (Normal) Range: 39-117 Bilirubin, Direct 0.13 mg/dL (Normal) Range: 0.00-0.40 Bilirubin, Total 0.5 mg/dL (Normal) Range: 0.0-1.2 Albumin, Serum 4.6 g/dL (Normal) Range: 3.5-4.8 Protein, Total, Serum 6.7 g/dL (Normal) Range: 6.0-8.5 9-Uii-925370:18 LIPOPROTEIN, BLD, BY NMR Comments: PATIENT WAS FASTINGPERFORMED BY: BN [facility] Hppluxfnct3281 [facility] [id number] BY: CB [facility] Czmpth3806 [facility] [id number] (25547) LP-IR Score 66 (Abnormal) Comments: INSULIN RESISTANCE [...] 1600 - 2000 Very High > 2000 32-Wtj-682377:25 CBC With Differential/Platelet Comments: PATIENT NOT FASTINGPERFORMED BY: LabSalem [facility] Epdjxb7331 [facility] [id number] Information: collect by nurse SRC: Immature Grans [...] 3.77-5.28 WBC 6.9 {x10E3/uL} (Normal) Range: 3.4-10.8 86-Brg-472376:25 Comp. Metabolic Panel (14) Comments: PATIENT NOT FASTINGPERFORMED BY: LabCoEnglewood Hospital and Medical CenterJcajhx7836 [facility] [id number] ALT (SGPT) 37 [iU]/L (Abnormal) Range: 0-32 [...] umol/L (Normal) Comments: PATIENT NOT FASTINGPERFORMED BY: PerBlue Ljdyvl7303 AutoBikeUNC Health Caldwell [id number] 0:25 Plasma Range: 0.0-15.0 Microalb/Creat Ratio, Randm Ur Comments: PATIENT NOT FASTINGPERFORMED BY: PerBlue Vphvri1693RewardLoopUNC Health Caldwell [id number] Microalb/Creat Ratio <5.6 {mg/g_creat} (Normal) Range: 0.0-30.0 Microalbumin, Urine <3.0 ug/mL (Normal) Creatinine, Urine 53.7 mg/dL (Normal) : Urinalysis, Routine Comments: PATIENT NOT FASTINGPERFORMED BY: NUOFFERWestern Missouri Mental Health Center [id number] Microscopic Examination MICNIP (Normal) Comments: Microscopic not indicated and not performed. Nitrite, Urine Negative (Normal) Urobilinogen,Semi-Qn 0.2 mg/dL (Normal) Range: 0.2-1.0 Bilirubin Negative (Normal) Occult Blood Negative (Normal) Ketones Negative (Normal) Glucose Negative (Normal) Protein Negative (Normal) WBC Esterase Negative (Normal) Appearance Clear (Normal) Urine-Color Yellow (Normal) pH 7.0 (Normal) Range: 5.0-7.5 Specific [place] 1.014 (Normal) Range: 1.005-1.030 : Urine Culture, Routine Comments: PATIENT NOT FASTINGPERFORMED BY: PerBlue Ljmdrs9507 [facility] [id number] Result 1 LESS (Normal) Comments: Culture shows less than 10,000 colony forming units of bacteria permilliliter of urine. This colony count is not generally consideredto be clinically significant. Urine Culture, Routine Final report (Normal) 42-Sef-120757:59 URINE RASHAD CULTURE-IDENTIFICATN Comments: PATIENT NOT FASTINGPERFORMED BY: [facility]6370 [facility] [id number] Information: SRC: (47741) Antimicrobial MIHEAD (Normal) Comments: S = Susceptible; [...] mL (Abnormal) Urine Final report Culture,Comprehensive (Abnormal) 0-Tyf-279320:01 URINE RASHAD CULTURE-IDENTIFICATN Comments: PATIENT NOT FASTINGPERFORMED BY: [place] 7934370 [facility] [id number] Information: SRC: (57918) Result 1 NG36 (Normal) Comments: No growth in 36 - 48 hours. Urine Culture,Comprehensive Final report (Normal) 19-Nov-20169:11 Urinalysis, Office (32292) UA - LEUKOCYTE ESTERASE Large (Normal) UA - NITRITE Positive (Normal) URINE UROBILINGN SILVESTRE TIMED 2 mg/dL (Normal) UA - PROTEIN 30 mg/dL (Normal) UA - PH 6 (Abnormal) UA - BLOOD Negative (Normal) UA - SPECIFIC GRAVITY 1.005 (Normal) UA - KETONES 15 mg/dL (Abnormal) UA - BILIRUBIN Large (Normal) UA - GLUCOSE 100 (Abnormal) 66-Jbc-02200:16 CBC W/Diff, Automated Comments: [facility] I[address]drd[address] [place], [address] Absolute Lymph 1.78 {X10_3/ul} (Normal) Range: 0.83-4.51 [...] 4.2-5.4 WBC 5.7 K/mm3 (Normal) Range: 4.4-11.0 6-Wfa-359397:00 HSV CULTURE SCREEN 837963 Comments: PERFORMED BY: [employer] [facility] [id number] Information: SRC:OFE (42497) HSV Culture Without Typing Negative (Normal) 99-Psx-610407:58 URINE RASHAD CULTURE-IDENTIFICATN Comments: PATIENT NOT FASTINGPERFORMED BY: [employer]ured [employer] [facility] [id number] Information: SRC:ADWOA (23830) Antimicrobial MIHEAD (Normal) Comments: S = Susceptible; [...] mL (Abnormal) Urine Final report Culture,Comprehensive (Abnormal) 74-Czy-37972:21 Urinalysis, Office (63159) UA - LEUKOCYTE ESTERASE Moderate (Normal) UA - NITRITE Negative (Normal) URINE UROBILINGN SILVESTRE TIMED 2 mg/dL (Normal) UA - PROTEIN 30 mg/dL (Normal) UA - PH 6.0 (Normal) UA - BLOOD Hemolyzed Large (Normal) UA - SPECIFIC GRAVITY 1.020 (Normal) UA - KETONES Negative mg/dL (Normal) UA - BILIRUBIN Negative (Normal) UA - GLUCOSE Negative (Normal) :32 HgA1C , Office (83087) HgA1C , Office 5.4 % (Normal) Range: 4.6 - 7.1 :36 T4, FREE (THYROXINE) (01836) Comments: PATIENT NOT FASTINGPERFORMED BY: Structured PolymersNew Sunrise Regional Treatment CenterBhlijc7236 [facility] [id number] T4,Free(Direct) 1.34 ng/dL (Normal) Range: 0.82-1.77 76-Pby-432368:36 TSH (13629) Comments: PATIENT NOT FASTINGPERFORMED BY: PerBlue [employer] [facility] [id number] TSH 2.400 {uIU/mL} (Normal) Range: 0.450-4.500 49-Cha-361340:36 HEPATIC FUNCTION PANEL Comments: PATIENT NOT FASTINGPERFORMED BY: PerBlue [employer] [facility] [id number] (61561) ALT (SGPT) 59 [iU]/L (Abnormal) Range: 0-32 AST (SGOT) 35 [iU]/L (Normal) Range: 0-40 Alkaline Phosphatase, S 96 [iU]/L (Normal) Range: 39-117 Bilirubin, Direct 0.15 mg/dL (Normal) Range: 0.00-0.40 Comments: Please note reference interval change Bilirubin, Total 0.6 mg/dL (Normal) Range: 0.0-1.2 Albumin, Serum 4.4 g/dL (Normal) Range: 3.5-4.8 Protein, Total, Serum 6.5 g/dL (Normal) Range: 6.0-8.5 :36 Magnesium (98050) Comments: PATIENT NOT FASTINGPERFORMED BY: Structured PolymersEnglewood Hospital and Medical CenterKfwmbq98[address] [place] [address] [id number] Magnesium, Serum 2.0 mg/dL (Normal) Range: 1.6-2.3 :36 Metabolic Panel, Basic Comments: PATIENT NOT FASTINGPERFORMED BY: Structured PolymersEnglewood Hospital and Medical CenterVtynth39[address] [place] [address] [id number] (28949) Calcium, Serum 9.9 mg/dL (Normal) Range: 8.7-10.3 [...] three months (approximately); PATIENT WAS FASTINGPERFORMED BY: Hallpass MediaJoshua V[place] 0[address]687 [facility] [id number] BY: Hallpass MediaBruce [place] 0227270 [facility] [id number] (52066) T4,Free(Direct) 1.23 ng/dL (Normal) Range: 0.82-1.77 :32 TSH (72840) Comments: in three months (approximately); PATIENT WAS FASTINGPERFORMED BY: Entrenarme LabCoMunchAway [address] [id number] BY: LabCoEnglewood Hospital and Medical CenterNixuuf6095 [facility] [id number] TSH 3.620 {uIU/mL} (Normal) Range: 0.450-4.500 :32 LIPOPROTEIN, BLD, BY NMR Comments: in three months (approximately); PATIENT WAS FASTINGPERFORMED BY: Entrenarme [facility] Gmxykuzita[address] [id number] BY: LabHaozu.comVsbxvv3823 [facility] [id number] (64495) LP-IR Score 77 (Abnormal) Comments: INSULIN RESISTANCE [...] 1600 - 2000 Very High > 2000 69-Htr-787764:10 HEPATIC FUNCTION PANEL Comments: in three months (approximately); PATIENT NOT FASTINGPERFORMED BY: LabCoEnglewood Hospital and Medical CenterEltbse1672 [facility] [id number] (84573) ALT (SGPT) 112 [iU]/L (Abnormal) Range: 0-32 [...] three months (approximately); PATIENT WAS FASTINGPERFORMED BY: [employer] [id number] BY: PerBlue Capricor TherapeuticsUNC Health Rex [id number] (29221) Homocyst(e)ine, Plasma 9.3 umol/L (Normal) Range: 0.0-15.0 78-Lvp-270910:10 HEPATITIS PANEL (67002) Comments: today do; PATIENT NOT FASTINGPERFORMED BY: ReviewZAP70 Venuetastic [facility] PointeCurrencyBirdUNC Health Rex [id number] Hep C Virus Ab 0.2 {s/co_ratio} (Normal) Range: 0.0-0.9 Comments: Negative: < 0.8 Indeterminate: 0.8 - 0.9 Positive: > 0.9 . The CDC recommends that a positive HCV antibody result be followed up with a HCV Nucleic Acid Amplification test (409983). Hep B Core Ab, IgM Negative (Normal) HBsAg Screen Negative (Normal) Hep A Ab, IgM Negative (Normal) :32 HEPATIC FUNCTION PANEL Comments: send copy to Dr. dejesus. do today; PATIENT WAS FASTINGPERFORMED BY: [employer]log[employer] [id number] BY: PerBlue Kkrvmf7342 [facility] [id number]; apt today DB (89257) ALT (SGPT) 43 [iU]/L (Abnormal) Range: 0-32 AST (SGOT) 33 [iU]/L (Normal) Range: 0-40 Alkaline Phosphatase, S 98 [iU]/L (Normal) Range: 39-117 Bilirubin, Direct 0.14 mg/dL (Normal) Range: 0.00-0.40 Bilirubin, Total 0.5 mg/dL (Normal) Range: 0.0-1.2 Albumin, Serum 4.2 g/dL (Normal) Range: 3.5-4.8 Protein, Total, Serum 6.3 g/dL (Normal) Range: 6.0-8.5 10-Byu-066996:48 HgA1C , Office (06475) HgA1C , Office 5.7 % (Normal) Range: 4.6 - 7.1 28-Byq-286133:34 FERRITIN (11744) Comments: PATIENT NOT FASTINGPERFORMED BY: PerBlue ZentricUNC Health Caldwell [id number] Ferritin, Serum 246 ng/mL (Abnormal) Range: 15-150 41-Fil-787965:34 CERULOPLASMIN (37670) Comments: PATIENT NOT FASTINGPERFORMED BY: TipTapUNC Health Rex [id number] Ceruloplasmin 24.7 mg/dL (Normal) Range: 19.0-39.0 :34 ASM (ANTI SMOOTH MUSCLE Comments: PATIENT NOT FASTINGPERFORMED BY: [employer] Xavier Hybrid LogicUNC Health Caldwell [id number] ANTIBODY) (38579) Actin (Smooth Muscle) Antibody 7 {Units} (Normal) Range: 0-19 Comments: Negative 0 - 19 Weak positive 20 - 30 Moderate to strong positive >30 . Actin Antibodies are found in 52-85% of patients with autoimmune hepatitis or chronic active hepatitis and in 22% of patients with primary biliary cirrhosis. 00-Dvy-844993:34 ANTI-LIVER/KIDNEY MICROSOMAL Comments: PATIENT NOT FASTINGPERFORMED BY: TipTapUNC Health Rex [id number] ANTIBODY (80533) Thyroid Peroxidase (TPO) Ab 9 {IU/mL} (Normal) Range: 0-34 02-Prx-084471:34 JESS (ANTINUCLEAR ANTIBODY) Comments: PATIENT NOT FASTINGPERFORMED BY: NUOFFERox HailoUNC Health Rex [id number] (02943) JESS Direct Negative (Normal) :33 Microscopic Examination Comments: PATIENT WAS FASTINGPERFORMED BY: TipTapUNC Health Rex [id number] Bacteria Few (Normal) Mucus Threads Present (Normal) Epithelial Cells (non renal) 0-10 {/hpf} (Normal) Range: 0 - 10 RBC 0-2 {/hpf} (Normal) Range: 0 - 2 WBC 0-5 {/hpf} (Normal) Range: 0 - 5 51-Nvk-145824:51 Rapid Flu (87285 x 2) Influenza A Ag neg a and b (Normal) 6-Myl-269698:20 URINE RASHAD CULTURE-IDENTIFICATN Comments: PATIENT NOT FASTINGPERFORMED BY: [facility] Cjrjhb9039 [facility] [id number] Information: [id number] (38649) Antimicrobial MIHEAD (Normal) Comments: S = Susceptible; [...] Final report Culture,Comprehensive (Abnormal) :18 Urinalysis, Office (75649) UA - GLUCOSE Negative (Normal) UA - BILIRUBIN Negative (Normal) UA - KETONES Negative mg/dL (Normal) UA - SPECIFIC GRAVITY 1.010 (Normal) UA - BLOOD Hemolyzed Trace (Normal) UA - PH 5 (Abnormal) UA - PROTEIN Negative mg/dL (Normal) URINE UROBILINGN SILVESTRE TIMED Normal mg/dL (Normal) UA - NITRITE Positive (Normal) UA - LEUKOCYTE ESTERASE Trace (Normal) :33 URINALYSIS, W/ MICRO (68055) Comments: PATIENT WAS FASTINGPERFORMED BY: [facility] Qtqnim3524 [facility] [id number] Microscopic Examination See below: (Normal) Comments: Microscopic was indicated and was performed. Nitrite, Urine Negative (Normal) Urobilinogen,Semi-Qn 0.2 mg/dL (Normal) Range: 0.2-1.0 Bilirubin Negative (Normal) Occult Blood Negative (Normal) Ketones Negative (Normal) Glucose Negative (Normal) Protein Negative (Normal) WBC Esterase 1+ (Abnormal) Appearance Clear (Normal) Urine-Color Yellow (Normal) pH 7.0 (Normal) Range: 5.0-7.5 Specific [place] 1.016 (Normal) Range: 1.005-1.030 :33 METABOLIC PANEL, COMPREHENSIVE Comments: PATIENT WAS FASTINGPERFORMED BY: [facility]6370 [facility] [id number] (54436) ALT (SGPT) 51 [iU]/L (Abnormal) Range: 0-32 [...] mg/dL (Abnormal) Range: 65-99 :33 LIPID PANEL (78537) Comments: PATIENT WAS FASTINGPERFORMED BY: Structured PolymersEnglewood Hospital and Medical CenterUzolfh4477 [facility] [id number] LDL/HDL Ratio 3.8 {ratio_units} (Abnormal) Range: 0.0-3.2 [...] Cholesterol, Total 208 mg/dL (Abnormal) Range: 100-199 22-Nqj-48776:33 CBC with auto diff Comments: PATIENT WAS FASTINGPERFORMED BY: Structured PolymersEnglewood Hospital and Medical CenterWcpcoj7207 [facility] [id number] Information: [id number]; [address] (91896) Immature Grans (Abs) 0.0 {x10E3/uL} (Normal) Range: [...] (Normal) Range: 3.4-10.8 :48 HgA1C , Office (53976) HgA1C , Office 6.3 % (Normal) Range: 4.6 - 7.1 :59 METABOLIC PANEL, COMPREHENSIVE Comments: PATIENT WAS FASTINGPERFORMED BY: LabCoEnglewood Hospital and Medical CenterAtogqc4838 [facility] [id number] (54644) ALT (SGPT) 44 [iU]/L (Abnormal) Range: 0-32 [...] mg/dL (Abnormal) Range: 65-99 :59 LIPID PANEL (54150) Comments: PATIENT WAS FASTINGPERFORMED BY: [facility]6370 [facility] [id number] LDL/HDL Ratio 4.1 {ratio_units} (Abnormal) Range: 0.0-3.2 [...] auto diff Comments: PATIENT WAS FASTINGPERFORMED BY: LabCoEnglewood Hospital and Medical CenterFqjjbm8946 [facility] [id number] Information: [id number] (76260) Immature Grans (Abs) 0.0 {x10E3/uL} (Normal) Range: [...] {x10E3/uL} (Normal) Range: 3.4-10.8 :55 Urinalysis, Office (96397) UA - LEUKOCYTE ESTERASE Small (Normal) UA - NITRITE Negative (Normal) URINE UROBILINGN SILVESTRE TIMED Normal mg/dL (Normal) UA - PROTEIN Negative mg/dL (Normal) UA - PH 7 (Normal) UA - BLOOD Negative (Normal) UA - SPECIFIC GRAVITY 1.010 (Normal) UA - KETONES Negative mg/dL (Normal) UA - BILIRUBIN Negative (Normal) UA - GLUCOSE Negative (Normal) :45 CBC W/Diff, Automated Comments: Test performed at:[facility] Zyaqcpyogh74[address] [place], [place] [id number] Absolute Lymph 2.36 {X10_3/ul} (Normal) Range: 0.83-4.51 [...] 4.2-5.4 WBC 13.0 K/mm3 (Abnormal) Range: 4.4-11.0 15-Odm-91082:45 Comprehensive Metabolic Profil Comments: Test performed at:[facility] Byysrqczyl9831 [place] [address] GAP 5 (Normal) Range: 5-15 CO2 27.0 [...] Comments: Please note revised CREATININE reference range zpzcvtipv20/22/2015. BUN 15 mg/dL (Normal) Range: 7-18 GLU 134 mg/dL (Abnormal) Range: 70-110 Comments: Fasting Glucose result greater than or equal to 126 mg/dLsuggests DIABETES MELLITUS per A.D.A. criteria. :45 Lipase Comments: Test performed at:[facility] Zxxfptmfjg8189 [facility] [place] [address] LIPASE 215 U/L (Normal) Range: 73-393 :32 Urinalysis, Complete Comments: Order Date: 12/16/14How was Urine Obtained? CLEAN CATCHTest performed at:[facility] It[address] [place] [address] MUCUS, URINE 0 SEEN {/hpf} [...] Comprehensive Comments: PATIENT NOT FASTINGPERFORMED BY: [facility] Vmuxkh7963 [place] [id number] (87420) ALT (SGPT) 44 [iU]/L (Abnormal) Range: 0-32 [...] Glucose, Serum 106 mg/dL (Abnormal) Range: 65-99 10-Ckj-78444:31 CBC, Platelets & Auto Diff Comments: PATIENT NOT FASTINGPERFORMED BY: LabCoEnglewood Hospital and Medical CenterBdtseu9943 [facility] [id number] Information: [id number] (11113) Immature Grans (Abs) 0.0 {x10E3/uL} (Normal) Range: [...] {x10E3/uL} (Normal) Range: 3.4-10.8 :05 Rapid Flu (47928 x 2) Comments: pos A Influenza A Ag positive A (Normal) :55 ZNVTY-KCPZNWLDLOG-PXHVY (01190) Comments: today; PATIENT NOT FASTINGPERFORMED BY: Structured PolymersEnglewood Hospital and Medical CenterYnpgyn9798 [facility] [id number] AFP, Serum, Tumor Marker 5.4 ng/mL (Normal) Range: 0.0-8.3 Comments: [employer] ECLIA methodology :55 HEPATITIS PANEL (74427) Comments: today; PATIENT NOT FASTINGPERFORMED BY: Hallpass MediaMclaren Northern Michigan6370 [facility] [id number] Information: [id number] Hep C Virus Ab <0.1 {s/co_ratio} (Normal) Range: 0.0-0.9 Comments: Negative: < 0.8 Indeterminate: 0.8 - 0.9 Positive: > 0.9 . In order to reduce the incidence of a false positive result, the CDC recommends that all s/co ratios between 1.0 and 10.9 be confirmed by a more specific supplemental or PCR testing. [facility]Sal[facility] offers HCV Ab w/Reflex to Verification test #918114. Hep B Core Ab, IgM Negative (Normal) HBsAg Screen Negative (Normal) Hep A Ab, IgM Negative (Normal) :21 HEPATIC FUNCTION PANEL Comments: repeat in 6 weeks around ; PATIENT NOT FASTINGPERFORMED BY: [facility] [place] [address] [id number] Information: [id number] (74115) ALT (SGPT) 38 [iU]/L (Abnormal) Range: 0-32 AST (SGOT) 28 [iU]/L (Normal) Range: 0-40 Alkaline Phosphatase, S 124 [iU]/L (Abnormal) Range: 39-117 Bilirubin, Direct 0.15 mg/dL (Normal) Range: 0.00-0.40 Bilirubin, Total 0.6 mg/dL (Normal) Range: 0.0-1.2 Albumin, Serum 4.2 g/dL (Normal) Range: 3.5-4.8 Protein, Total, Serum 6.5 g/dL (Normal) Range: 6.0-8.5 :09 Microscopic Examination Comments: PATIENT WAS FASTINGPERFORMED BY: [facility]6370 [facility] [id number] Bacteria Few (Normal) Epithelial Cells (non renal) 0-10 {/hpf} (Normal) Range: 0 - 10 RBC 0-2 {/hpf} (Normal) Range: 0 - 2 WBC 11-30 {/hpf} (Abnormal) Range: 0 - 5 06-Zzm-180626:50 HgA1C , Office (15868) HgA1C , Office 5.8 % (Normal) Range: 4.6 - 7.1 :09 URINALYSIS, W/ MICRO (89893) Comments: PATIENT WAS FASTINGPERFORMED BY: [place] 7934370 [facility] [id number] Microscopic Examination See below: (Normal) Comments: Microscopic was indicated and was performed. Nitrite, Urine Negative (Normal) Urobilinogen,Semi-Qn 0.2 mg/dL (Normal) Range: 0.0-1.9 Bilirubin Negative (Normal) Occult Blood Negative (Normal) Ketones Negative (Normal) Glucose Negative (Normal) Protein Negative (Normal) WBC Esterase 3+ (Abnormal) Appearance Clear (Normal) Urine-Color Yellow (Normal) pH 7.0 (Normal) Range: 5.0-7.5 Specific [place] 1.014 (Normal) Range: 1.005-1.030 :09 METABOLIC PANEL, COMPREHENSIVE Comments: PATIENT WAS FASTINGPERFORMED BY: LabMcl[facility]6370 [facility] [id number] (40535) ALT (SGPT) 41 [iU]/L (Abnormal) Range: 0-32 [...] of serum to cells. :09 LIPID PANEL (52253) Comments: PATIENT WAS FASTINGPERFORMED BY: Structured PolymersEnglewood Hospital and Medical CenterDkjiuj9134 [facility] [id number] VLDL Cholesterol Kelsi VLDLCH mg/dL (Normal) Range: [...] Cholesterol, Total 233 mg/dL (Abnormal) Range: 100-199 29-Ylk-885796:09 CBC W/AUTO DIFF WBC Comments: PATIENT WAS FASTINGPERFORMED BY: [employer]6370 [facility] [id number] Information: [id number] (24914) Immature Grans (Abs) 0.0 {x10E3/uL} (Normal) Range: [...] CREATININE RATIO Comments: PATIENT WAS FASTINGPERFORMED BY: [employer]6370 [facility] PointeCurrencyBirdUNC Health Rex [id number] (97266) AND (70934) Microalb/Creat Ratio 2.7 {mg/g_creat} (Normal) Range: 0.0-30.0 Microalbumin, Urine 1.5 ug/mL (Normal) Range: 0.0-17.0 Creatinine, Urine 54.8 mg/dL (Normal) Range: 15.0-278.0 :39 METABOLIC PANEL, COMPREHENSIVE Comments: PATIENT WAS FASTINGPERFORMED BY: ReviewZAP70 [employer] [facility] OpticsUNC Health Rex [id number] (64455) ALT (SGPT) 41 [iU]/L (Abnormal) Range: 0-32 [...] mg/dL (Abnormal) Range: 65-99 :39 LIPID PANEL (15019) Comments: PATIENT WAS FASTINGPERFORMED BY: ReviewZAP70 [facility] [id number] VLDL Cholesterol Kelsi VLDLCH mg/dL (Normal) Range: [...] MANUAL DIFF Comments: PATIENT WAS FASTINGPERFORMED BY: [employer]6370 [facility] [id number] Information: [id number] (29521) Immature Grans (Abs) 0.0 {x10E3/uL} (Normal) Range: [...] in 8 weeks; PATIENT WAS FASTINGPERFORMED BY: Candid io70 AutoBikeUNC Health Caldwell [id number] (08836) Bilirubin, Direct 0.12 mg/dL (Normal) Range: 0.00-0.40 :35 Blood Glucose , Office (42568) Blood Glucose , Office 161 (Normal) :35 HgA1C , Office (67939) HgA1C , Office 5.6 % (Normal) Range: 4.6 - 7.1 :36 TSH (35263) Comments: Forward to Dr Avery Cobb, [place] [phone]; PATIENT WAS FASTINGPERFORMED BY: LabVisibleGainsrp Ocpprr5394 [facility] Hospitalin [place] [id number] TSH 2.620 {uIU/mL} (Normal) Range: 0.450-4.500 :36 CBC with manual diff Comments: Forward to Dr Avery Cobb, [place] [phone]; PATIENT WAS FASTINGPERFORMED BY: [facility] Ymsoco1092 [facility] [id number] Informat ion: [id number] CC:[id number] (68104) Immature Grans (Abs) 0.0 {x10E3/uL} (Normal) Range: [...] Comprehensive Comments: Forward to Dr Avery Cobb, [place], [phone]; PATIENT WAS FASTINGPERFORMED BY: [facility] Ztnucj5558 [facility] [id number] (41362) ALT (SGPT) 33 [iU]/L (Abnormal) Range: 0-32 [...] Glucose, Serum 119 mg/dL (Abnormal) Range: 65-99 0-Yub-114203:29 URINE RASHAD CULTURE-SILVESTRE COL Comments: PATIENT NOT FASTINGPERFORMED BY: [facility] Azrcet3030 [facility] [id number] Information: SRC: [id number] COUNT (00612) Result 1 ENTEAE (Normal) Comments: Enterobacter aerogenes1,000 Colonies/mL S = Susceptible; I = Intermediate; R = Resistant P = Positive; N = Negative MICS are expressed in micrograms per mL A ntibiotic RSLT#1 RSLT#2 RSLT#3 RSLT#4Amoxicillin/Clavulanic Acid RCefazolin RCefepime SCeftriaxone SCefuroxime SCephalothin RCiprofloxacin SErtapenem SGentamicin SImipenem SLevofloxacin SNitrofurantoin RPiperacillin STetracycline STobramycin STrimethoprim/Sulfa S Urine Final report (Normal) Culture,Comprehensiv e 3-Oxp-864785:14 Urinalysis, Office (25732) UA - LEUKOCYTE ESTERASE Large (Normal) UA - NITRITE Negative (Normal) URINE UROBILINGN SILVESTRE TIMED Normal mg/dL (Normal) UA - PROTEIN Negative mg/dL (Normal) UA - PH 7 (Normal) UA - BLOOD Hemolyzed Small (Normal) UA - SPECIFIC GRAVITY 1.015 (Normal) UA - KETONES Negative mg/dL (Normal) UA - BILIRUBIN Negative (Normal) UA - GLUCOSE Negative (Normal) 02-Vkn-817902:22 URINE RASHAD CULTURE-SILVESTRE COL Comments: PATIENT NOT FASTINGPERFORMED BY: [facility] Fgkzbi6147 [facility] [id number] Information: SRC:UR [id number] COUNT (22153) Antimicrobial MIHEAD (Normal) Comments: S = Susceptible; [...] mL (Normal) Urine Final report Culture,Comprehensive (Normal) 60-Jxg-967801:24 Urinalysis, Office (79404) UA - BILIRUBIN Negative (Normal) UA - BLOOD Negative (Normal) UA - GLUCOSE Negative (Normal) UA - KETONES Negative mg/dL (Normal) UA - LEUKOCYTE ESTERASE Trace (Normal) UA - NITRITE Negative (Normal) UA - PH 7.0 (Normal) UA - PROTEIN Negative mg/dL (Normal) UA - SPECIFIC GRAVITY 1.015 (Normal) URINE UROBILINGN SILVESTRE TIMED 2 mg/dL (Normal) 38-Jfj-18137:28 Metabolic Panel, Basic Comments: PATIENT NOT FASTINGPERFORMED BY: LabCoDawn [place] 7507570 [facility] [id number] Information: [id number] (29691) Calcium, Serum 10.1 mg/dL (Normal) Range: 8.6-10.2 [...] Glucose, Serum 94 mg/dL (Normal) Range: 65-99 22-Vzl-35720:57 MAGNESIUM (42535) Comments: PATIENT NOT FASTINGPERFORMED BY: LabCoDa[place] 7507570 [facility] [id number] Magnesium, Serum 1.9 mg/dL (Normal) Range: 1.6-2.6 49-Vyn-03933:57 Metabolic Panel, Basic Comments: PATIENT NOT FASTINGPERFORMED BY: LabCoDawn [place] 7507570 [facility] [id number] Information: ADD [id number] AND DRAW FEE 99 1960 (53381) Calcium, Serum 9.9 mg/dL (Normal) Range: 8.6-10.2 [...] function Panel Comments: PATIENT NOT FASTINGPERFORMED BY: PerBlue Lloysu4697 [facility] [id number] Information: [id number] (22446) Albumin, Serum 4.1 g/dL (Normal) Range: 3.5-4.8 [...] 101 mg/dL (Abnormal) Range: 65-99 :12 Magnesium (28818) Comments: PATIENT NOT FASTINGPERFORMED BY: Structured PolymersEnglewood Hospital and Medical CenterFifxeh2505 [facility] [id number] Magnesium, Serum 1.7 mg/dL (Normal) Range: 1.6-2.6 93-Lla-897880:08 KNEE 4 OR MORE VIEWS Radiology See [...] Alvares M.D.December 05, 2012 at 11:41:24 AM [id number] Signed GP/GP If you are the referring physician and would like to consult with th eradiologist who provided this interpretation, please contact Maurilio Miller at [phone]. If this radiologist is unavailable, youwill be directed to another radiologist to assist. If you ar e a patient with a question regarding this report, pleasecontactyour referring physician directly. Professional Interpretation Provided By: [employer], Phone , These docum ents contain legally [...] 12/05/12 1459 Sign by: Archie Alvares MD 38-Oro-99375:20 RENAL FUNCTION PANEL Comments: PATIENT NOT FASTINGPERFORMED BY: [facility]6370 [facility] [id number] Information: [id number] (58104) Albumin, Serum 4.5 g/dL (Normal) Range: 3.5-4.8 [...] Glucose, Serum 131 mg/dL (Abnormal) Range: 65-99 08-Gtx-522805:58 Nuclear Stress Test Radiology Report See Note [...] 11/30/12 1458 by THIERRY MS,HOLLYSign by Lonnie NUNEZ,Hodges on 12/02/12 1640 Sign by: Lonnie NUNEZ,Brennan 80-Ynn-293320:24 Metabolic Panel, Basic Comments: PATIENT NOT FASTINGPERFORMED BY: [employer] [place] [id number] Information: [id number] (14820) Calcium, Serum 9.6 mg/dL (Normal) Range: 8.6-10.2 [...] Glucose, Serum 96 mg/dL (Normal) Range: 65-99 16-Fdh-128326:24 MAGNESIUM (14121) Comments: PATIENT NOT FASTINGPERFORMED BY: [employer]6370 [employer] [facility] OpticsThe [facility] [place] [id number] Magnesium, Serum 2.1 mg/dL (Normal) Range: 1.6-2.6 [...] <0.05 NEGATIVE0.06 - 0.59 AT RISK OF TX> OR = 0.60 SUGGEST TX 1-Qyj-790029:23 TSH 1.27 {uIU/mL} (Normal) Range: 0.358-3.74 03-Ovf-677798:58 BILAT SCRN DIGITAL & CAD Radiology Report [...] Alvares M.D.June 08, 2012 at 2:30:29 PM [id number] Signed GP/GP If you are the referring physician and would like to consult with theradiologist who pro vided this interpretation, please contact Maurilio Miller at [phone]. If this radiologist is unavailable, youwill be directed to another radiologist to assist. If you are a patient with a q uestion regarding this report, pleasecontactyour referring physician directly. Professional Interpretation Provided By: [employer], Phone , These documents contain legally protected [...] 06/08/12 1437 Sign by: Archie Alvares MD 58-Wsm-19577:57 LIPID PANEL (79641) Comments: PATIENT WAS FASTINGPERFORMED BY: LabCoNew Sunrise Regional Treatment CenterIgenzi7452 [facility] [id number] Information: [id number] VLDL Cholesterol Kelsi VLDLCH mg/dL (Normal) Range: [...] Cholesterol, Total 227 mg/dL (Abnormal) Range: 100-199 04-Tum-801777:05 WRIST,MIN 3 VIEWS Radiology Report See Note [...] Signed DS/NATALIE Profession al Interpretation Provided By: [facility]sp[facility]ron [facility] [employer], , To consult with a radiologist regarding this report, please call our 88I9mshzqaw line @ [phone] Dictated on 09/29/11 1133 by Janette Sykes DOscribed on 10/01/11 1001 by ITS IMPORTSign by Moses Sykes DO on 10/01/11 1002 Sign by: Moses Sykes DO 63-Has-041955:47 MICROALBUMIN: CREATININE RATIO Comments: PATIENT WAS FASTINGPERFORMED BY: LabCoEnglewood Hospital and Medical CenterFleboq5144 [facility] [id number] (90167) AND (49173) Microalb/Creat Ratio 2.6 {mg/g_creat} (Normal) Range: 0.0-30.0 Microalbumin, Urine 3.0 ug/mL (Normal) Range: 0.0-17.0 Creatinine, Urine 115.1 mg/dL (Normal) Range: 15.0-278.0 :47 METABOLIC PANEL, COMPREHENSIVE Comments: PATIENT WAS FASTINGPERFORMED BY: Candid io70 [facility] OpticsUNC [facility] Rex [id number] (74431) ALT (SGPT) 46 [iU]/L (Abnormal) Range: 0-40 [...] mg/dL (Abnormal) Range: 65-99 :47 LIPID PANEL (18856) Comments: PATIENT WAS FASTINGPERFORMED BY: [employer]6370 [facility] OpticsUNC [facility] Rex [id number] VLDL Cholesterol Kelsi VLDLCH mg/dL (Normal) Range: [...] Cholesterol, Total 195 mg/dL (Normal) Range: 100-199 00-Ffx-757992:47 CBC WITH MANUAL DIFF Comments: PATIENT WAS FASTINGPERFORMED BY: LabCoEnglewood Hospital and Medical CenterQvjswh0386 [facility] [id number] Information: [id number] (90608) Immature Grans (Abs) 0.0 {x10E3/uL} (Normal) Range: [...] change WBC 5.6 {x10E3/uL} (Normal) Range: 4.0-10.5 46-Rnj-534963:01 BILAT SCRN DIGITAL & CAD Radiology Report [...] radiologist regarding this report, please call our [id number] line @ Dictated on 05/19/11 1229 by Leonides Alvares MDscribed on 05/19/11 1407 by ITS IMPORTSign by Archie Alvares MD on 05/19/11 1408 Sign by: Archie Alvares MD 45-Wim-348887:11 LIPID PANEL (57095) Comments: now and in six months (approximately); PERFORMED BY: [employer]6370 [facility] [id number] HDL Cholesterol 32 mg/dL (Abnormal) Comments: According [...] Comments: in six months (approximately); PERFORMED BY: [employer]6370 [facility] [id number] (29799) ALT (SGPT) 57 [iU]/L (Abnormal) Range: 0-40 [...] Glucose, Serum 102 mg/dL (Abnormal) Range: 65-99 7-Sne-996250:51 CHEST, PA AND LATERAL Radiology Report See [...] on 07/21/101935 Sign by: Archie Alvares MD 6-Ptu-554581:14 Urinalysis, Office (31433) UA - BILIRUBIN Negative (Normal) UA - [...] <=16 S TRIMETHOPRIM/SULFAMETHOXAZO $ >=320 R EB-VCA [id number] < 0.2 {AI} Range: 0.0-0.8 :48 (Normal) Comments: Negative <0.9 Equivocal 0.9 - 1.0 Positive >1.0Performed at: [facility] Lab[address] [id number] Director: Mara Wilson MD, Phone: [phone] :48 ESR SED RATE 113 mm/h (Abnormal) Range: 0-30 :48 HEP-ABC 482245 HB CORE [id number] SeeNote (Normal) Comments: Result: Negative HEBSAB 6395 [...] COL Comments: PATIENT NOT FASTINGPERFORMED BY: [facility] Dnzykr7323 [facility] [id number] Information: SRC: [id number] COUNT (89214) Antimicrobial MIHEAD (Normal) Comments: S = Susceptible; [...] 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 Despite apparent in vitro susceptibility topenicillins and cephalospor (Normal) ins, this organism may be clinicallyresistant to therapy with these agents and, per the CLSI (formerlyPACLS), we have changed their results to indicate this. Urine Final report (Normal) Culture,Comprehensive 6-Pvf-529067:44 Urinalysis, Office (40109) UA - BILIRUBIN Negative (Normal) UA - [...] on 05/22/10 1538 Sign by: JOVANY ARAMBULA 35-Tkc-040464:24 Influenza A, H1N1, RT PCR Comments: PERFORMED BY: SHANNON [employer] [id number] BY: ILIR LabCoEnglewood Hospital and Medical CenterBsdjlo0480 [facility] [id number] Information: SRC:NL Subtype Novel H1N1 by Negative (Normal) PCR Type Influenza A by Negative (Normal) PCR Viral FLUABN (Normal) Comments: PERFORMED BY: Structured PolymersSelect at BellevilleKxrwjecfoe0869 [facility] [id number] BY: [facility]6370 [facility] [id number] Culture,Rapid,Influenz Comments: Negative:No Influenza A or B detected. a 53-Qxz-277214:25 Influenza A Ag (06129) Influenza A Ag negative (Normal) 34-Fya-394084:55 Urinalysis, Office (57106) UA - BILIRUBIN Negative (Normal) UA - BLOOD Negative (Normal) UA - GLUCOSE Trace (Normal) Comments: 100mg UA - KETONES Negative mg/dL (Normal) UA - LEUKOCYTE ESTERASE Small (Normal) UA - NITRITE Negative (Normal) UA - PH 7.0 (Normal) UA - PROTEIN Negative mg/dL (Normal) UA - SPECIFIC GRAVITY 1.015 (Normal) URINE UROBILINGN SILVESTRE TIMED 2 mg/dL (Normal) 3-Jxr-729105:04 CBC with manual diff Comments: PATIENT NOT FASTINGPERFORMED BY: Structured PolymersDawn [place] 7507570 [facility] [id number] Information: [id number] (33663) Immature Grans (Abs) 0.0 {x10E3/uL} (Normal) Range: [...] 3.80-5.10 WBC 6.4 {x10E3/uL} (Normal) Range: 4.0-10.5 3-Uhe-893579:04 Metabolic Panel, Comprehensive Comments: PATIENT NOT FASTINGPERFORMED BY: LabCoEnglewood Hospital and Medical CenterAjreqd8044 [facility] [id number] (94821) ALT (SGPT) 78 [iU]/L (Abnormal) Range: 0-40 [...] Glucose, Serum 105 mg/dL (Abnormal) Range: 65-99 04-Nsq-974540:07 BRAIN/HEAD WITHOUT CONTRAST Radiology Report See Note [...] on 03/11/10 0859 Sign by: JOVANY ARAMBULA 53-Jau-48468:00 CHEST, PA AND LATERAL Radiology Report See [...] STYLES on 03/12/10637 Sign by: BERTO STYLES 40-Zsw-90840:00 RIBS UNIL 2V NO CXR Radiology Report [...] STYLES on 03/12/10637 Sign by: BERTO STYLES 9-Vtb-447243:04 Lower Respiratory Culture Comments: PERFORMED BY: [facility] Uzshcz7760 [facility] [id number] Information: SRC:SP Result 1 RRF (Normal) Comments: Routine respiratory ermelinda Lower Respiratory Culture Final report (Normal) 24-Vpz-467500:29 ETH TISS P-ETH (Normal) Comments: OPERATIONSeptoplasty, bilateral [...] / SJ: 09/10/09 TC:3REPORT SIGNED: SCOOTER SNYDER 09/12/0929-Aug-200995-Thq-128922:05 BMP BUN/CRE 20.0 {RATIO} (Normal) Range: 10-20 [...] 126 mg/dLsuggests DIABETES MELLITUS per A.D.A. criteria. 52-Sws-917011:05 CBC MPV 7.1 fL (Normal) Range: 6.5-12.0 HCT 39.7 % (Normal) Range: 37-47 HGB 14.0 g/dL (Normal) Range: 12.0-16.0 MCH 31.3 pg (Normal) Range: 27.0-32.0 MCHC 35.3 g/dL (Normal) Range: 32-36 MCV 88.6 fL (Normal) Range: 81-99 PLT 232 K/mm3 (Normal) Range: 150-450 RBC 4.48 {M/mm3} (Normal) Range: 4.2-5.4 RDW 13.8 % (Normal) Range: 11.6-14.6 WBC 8.1 K/mm3 (Normal) Range: 4.4-11.0 [id number] MICROALBUMIN: CREATININE RATIO Comments: PATIENT WAS FASTINGPERFORMED BY: LabCoEng[facility] [id number] [facility] [id number] ([id number]) AND ([id number]) Microalb/Creat Ratio 3.2 {mg/g_creat} (Normal) Range: 0.0-30.0 Creatinine, Urine 37.1 mg/dL (Normal) Range: 15.0-278.0 Microalbumin, Urine 1.2 ug/mL (Normal) Range: 0.0-17.0 6-Nck-627955:33 METABOLIC PANEL, COMPREHENSIVE Comments: PATIENT WAS FASTINGPERFORMED BY: [facility]CoEng[facility] and Medical CenterLzbkeo5534 [facility] [id number] ([id number]) ALT (SGPT) 33 [iU]/L (Normal) Range: 0-40 [...] mg/dL (Abnormal) Range: 65-99 :33 LIPID PANEL (80456) Comments: PATIENT WAS FASTINGPERFORMED BY: [facility] Upblun3153 [facility] [id number] LDL Cholesterol Calc 142 mg/dL (Abnormal) Range: 0-99 LDL/HDL Ratio 3.5 {ratio_units} (Abnormal) Range: 0.0-3.2 VLDL Cholesterol Kelsi 57 mg/dL (Abnormal) Range: 5-40 Cholesterol, Total 240 mg/dL (Abnormal) Range: 100-199 HDL Cholesterol 41 mg/dL (Normal) Comments: According to ATP-III Guidelines, HDL-C >59 mg/dL is considered anegative risk factor for CHD. Triglycerides 284 mg/dL (Abnormal) Range: 0-149 2-Qst-708250:33 CBC WITH MANUAL DIFF Comments: PATIENT WAS FASTINGPERFORMED BY: [facility]6370 [facility] [id number] Information: [id number] ([id number]) Baso (Absolute) 0.0 {x10E3/uL} (Normal) Range: 0.0-0.2 [...] Report See Note (Normal) Comments: Exam Number: [id number] CT SCAN OF THE THORAX Multiple axial [...] left upper lobe. Reported By: ARCHIE ALVARES 60-Een-560546:05 PPD ([id number]) Comments: Lot #[id number]/Site-left forearmDose0.1 mlgiven by:[facility]; negative 46-Tnb-55430:18 TSH ([id number]) Comments: PATIENT WAS FASTINGPERFORMED BY: [facility] Knieku5679 [facility] [id number] TSH 1.234 {uIU/mL} (Normal) Range: 0.450-4.500 65-Wbk-16507:18 METABOLIC PANEL, COMPREHENSIVE Comments: PATIENT WAS FASTINGPERFORMED BY: [facility] Mnqqpy4046 [facility] [id number] ([id number]) A/G Ratio 1.4 (Normal) Range: 1.1-2.5 Albumin, [...] Serum 117 mg/dL (Abnormal) Range: 65-99 If -Indonesian >59 mL/min/1.73 Comments: Note: Persistent reduction for [...] Sodium, Serum 141 mmol/L (Normal) Range: 135-145 98-Jie-20302:18 LIPID PANEL (17567) Comments: PATIENT WAS FASTINGPERFORMED BY: [employer] Man [facility] [id number] Cholesterol, Total 206 mg/dL (Abnormal) Range: 100-199 [...] Cholesterol Kelsi 55 mg/dL (Abnormal) Range: 5-40 31-Cem-03071:18 CBC WITH MANUAL DIFF ([id number]) Comments: PATIENT WAS FASTINGClinical Information: ADD DRAW FEE [id number] ADD J 04009 PERFORMED BY: [place]etaDublin [place] [id number] Baso (Absolute) 0.0 {x10E3/uL} (Normal) Range: 0.0-0.2 [...] 3+ ORGANISM 1: GROUP A BETA STREPTOCOCCUS 70-Pvt-661905:26 MRSA DNA BY PCR MRSA RESULT SeeNote (Normal) Comments: Result: Negative 1-Vcn-170891:25 COMP METABOLIC Comments: COMMENTS: NEW ADMIT A/G [...] T PROT 7.7 g/dL (Normal) Range: 6.4-8.2 69-Fnp-648593:10 MAMM, BILAT SCRN DIGITAL & CAD Radiology Report See Note (Normal) Comments: Exam Number: [id number] MAMMOGRAPHY, BILATERAL SCREENING DIGITAL AND CAD HISTORYRoutine [...] mammograms werealso examined with computer-aided detection software ([employer], [employer].). Reported By: JOVANY ARAMBULA M.D. 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 Indication: Afib Knee pain, right : [...] Indication: Well woman exam Planned Observations Ferritin ([id number])Indication: Elevated LFTs On: :05 Request HEPATIC FUNCTION PANEL (13692)Indication: Elevated LFTs On: :04 Request QWRLM-TPXIHOMRQCY-SBQKS ([id number])Indication: Elevated LFTs On: :04 Request METABOLIC PANEL, COMPREHENSIVE (36622)Indication: Hypercholesteremia On: 45-Owq-558248:41 Request LIPOPROTEIN, BLD, BY NMR ([id number])Indication: Hypercholesteremia On: 40-Fep-464231:41 Request Metabolic Panel, Basic (62120)Indication: Abdominal pain On: :25 Request CBC, Platelets & Auto Diff (38200)Indication: Abdominal pain On: 49-Drc-964250:24 Request Sed Rate Erythrocyte (19878)Indication: Abdominal pain On: 08-Duw-727774:16 Request URINE RASHAD CULTURE-IDENTIFICATN (88496)Indication: Dysuria On: 93-Ibp-69852:35 Request MICROALBUMIN: CREATININE RATIO (68547) AND (79444)Indication: Hypertensive left ventricular hypertrophy On: :01 Request URINALYSIS (51974)Indication: Hypertensive left ventricular hypertrophy On: :01 Request CBC WITH MANUAL DIFF (44126)Indication: Hypertensive left ventricular hypertrophy On: :01 Request Metabolic Panel, Comprehensive (88417)Indication: Elevated LFTs On: :01 Request URINE RASHAD CULTURE-IDENTIFICATN (04993)Indication: Urinary tract infection, site not specified On: :09 Request URINALYSIS (84159)Indication: Urinary tract infection, site not specified On: 48-Qop-902558:09 Request URINALYSIS (55326)Indication: Dysuria On: 25-Asb-776433:59 Request Homocysteine, Plasma (79443)Indication: MTHFR mutation On: 19-Nov-20169:24 Request Comments: follow up with in six months (approximately) CBC with auto diff (22418)Indication: Hematoma of hip, right, initial encounter On: :57 Request HEPATIC FUNCTION PANEL (28325)Indication: Hypercholesteremia On: 57-Xbe-77604:37 Request Comments: 6 weeks HEPATITIS PANEL (99115)Indication: Elevated LFTs On: 52-Mhk-996471:30 Request URINALYSIS, W/ MICRO (44155)Indication: Hypertensive left ventricular hypertrophy On: :49 Request METABOLIC PANEL, COMPREHENSIVE (36145)Indication: Hypertensive left ventricular hypertrophy On: :49 Request LIPID PANEL (66315)Indication: Hypertensive left ventricular hypertrophy On: :49 Request CBC with auto diff (83838)Indication: Hypertensive left ventricular hypertrophy On: :49 Request HgA1C , Office (43714)Indication: Impaired fasting glucose On: 47-Wna-48066:47 Request Lipid Panel (91741)Indication: Afib On: 01-Vvm-136910:21 Request Comments: copy to Dr. matthews Metabolic Panel, Basic (55227)Indication: Afib On: 95-Aio-564843:20 Request HEPATIC FUNCTION PANEL (33598)Indication: Elevated LFTs On: 45-Pzl-552705:20 Request Lipid Panel (53978)Indication: Hypercholesteremia On: 76-Ulu-055746:20 Request METABOLIC PANEL, BASIC (35003)Indication: Hypokalemia On: 17-Feb-20139:10 Request Comments: pls send copy to Dr Young also METABOLIC PANEL, COMPREHENSIVE (77300)Indication: Palpitation On: 2-Cwf-930911:10 Request CBC WITH MANUAL DIFF (89253)Indication: Palpitation On: 8-Hes-038943:10 Request TSH (10566)Indication: Palpitation On: 8-Vgj-286147:10 Request CREATINE KINASE TOTAL (81128)Indication: Abnormal EKG On: 2-Ink-256234:10 Request CPK MB FRACTION (96469)Indication: Abnormal EKG On: 2-Rha-227927:10 Request Troponin I (71415)Indication: Abnormal EKG On: 9-Srf-606277:10 Request LIPID PANEL (79919)Indication: Hypertensive left ventricular hypertrophy On: 22-Jkp-013134:43 Request Comments: in in six months (approximately) only. URINALYSIS, W/ MICRO (28236)Indication: Hematuria On: 82-Mkb-889762:43 Request CBC (Auto) (65183)Indication: Hypertensive left ventricular hypertrophy On: 29-Hsq-359713:38 Request Metabolic Panel, Comprehensive (78222)Indication: Hypertensive left ventricular hypertrophy On: 41-Ait-350935:37 Request URINE RASHAD CULTURE-IDENTIFICATN (24613)Indication: NEOP, BNG, RENAL PELVIS On: 78-Zto-022916:37 Request COMPLEMENT, TOTAL (CH50) (84740)Indication: Rheumatoid arthritis On: 8-Yfi-069491:22 Request COMPLEMENT C4 (97260)Indication: Rheumatoid arthritis On: 4-Rbr-126525:22 Request COMPLEMENT C3 (27863)Indication: Rheumatoid arthritis On: 6-Wxc-988776:22 Request Potassium Serum (23563)Indication: Hypokalemia On: 3-Avj-479008:21 Request Comments: re check on Wednesday05-24-10 please call results to Dr. Troncoso RHEUMATOID FACTOR-QUANT ([id number]) test code 033133Dzexyslmig: Rheumatoid arthritis On: 4-Ubd-654548:20 Request Comments: add to labs already drawn please Magnesium (49261)Indication: Hypokalemia On: 5-Yuf-542466:19 Request HEPATITIS PANEL (24366)Indication: Elevated LFTs On: :10 Request EBV IGM ANTIBODY (71339)Indication: Elevated LFTs On: : Request RASHAD CULTURE-BLOOD (69956)Indication: Urinary tract infection, site not specified On: : Request Amylase (96359)Indication: Abdominal pain, acute, generalized On: : Request Lipase (84861)Indication: Abdominal pain, acute, generalized On: : Request Sed Rate Erythrocyte (93281)Indication: Abdominal pain, acute, generalized On: : Request Metabolic Panel, Comprehensive (27263)Indication: Abdominal pain, acute, generalized On: : Request CBC with manual diff (06247)Indication: Abdominal pain, acute, generalized On: : Request Influenza A&B Viral Culture (95174)Indication: INFLUENZA W/MANIFESTATION NEC On: 45-Oes-506540:48 Request Influenza A H1N1 PCR ([id number])Indication: INFLUENZA W/MANIFESTATION NEC On: 65-Lvl-186115:48 Request Rapid Flu ([id number] x 2)Indication: INFLUENZA W/MANIFESTATION NEC On: 36-Onm-421769:48 Request METABOLIC PANEL, BASIC (78316)Indication: Hypokalemia On: 57-Qna-547087:20 Request CULTURE, SPUTUM (89892)Indication: Cough On: 24-Feb-20109:25 Request PPD (22886)Indication: Screening examination for pulmonary tuberculosis On: 95-Ogx-001789:05 Request Comments: Lot #[id number]/11Site-left forearmDose0.1 mlgiven by:[facility] Potassium Serum (30913)Indication: Hypokalemia On: 47-Qtn-229127:27 Request Comments: 2weeks Glucose, PP/2 Hour (52275)Indication: Impaired fasting glucose On: 43-Zrh-285257:23 Request Comments: 75 gm Lipid Panel (22663)Indication: Hypercholesteremia On: 18-Aep-999543:23 Request Comments: 4 months RASHAD CULTURE-OTHER (85997)Indication: Cellulitis and abscess of leg, except foot On: 02-Bam-754867:16 Request Comments: nasal BACT CULTURE ANY-ANAEROBIC (96601)Indication: Cellulitis and abscess of leg, except foot On: :16 Request Comments: nasal BACT CULTURE ANY-ANAEROBIC (42081)Indication: Cellulitis and abscess of leg, except foot On: 67-Cle-369465:15 Request Comments: rt leg RASHAD CULTURE-OTHER (88564)Indication: Cellulitis and abscess of leg, except foot On: 69-Bjz-539882:15 Request Comments: Rt leg OCCULT BLOOD FECES SCREEN (80724)Indication: Well woman exam On: :50 Request Comments: done in office Thin prep Pap (70326)Indication: Well woman exam On: :50 Request URINALYSIS W/O MICRO (86589)Indication: Hypertension, benign On: :49 Request CBC (Auto) (35207)Indication: Hypertension, benign On: :49 Request Lipid Panel (95657)Indication: Hypertension, benign On: :49 Request Metabolic Panel, Comprehensive (40962)Indication: Hypertension, benign On: :49 Request Planned Encounters Medical; [facility] Pre Wellness Exam (Nurse) - On: 08-Mar-2018 8:00 [facility] SAMI Orta; [facility] Wellness Exam (Doctor) - On: 28-Mar-2018 8:00 [facility] Diana Troncoso MD, MD, Dana M Planned Procedures TDAP VACCINE >7 IM (15687)By: On: 31-Aug-2017 Intent Diana Troncoso MD Comments: lot:[id number]:09/16/19rte:IM left deltoid dose:0.5mlgiven by:gosia Gonzáles LPN MD, Dana M DEXA SCAN AXIAL SKELETON On: 31-Aug-2017 Intent (73807)By: Diana Troncoso MD Comments: due 12-04 Diana Troncoso MD Aerosol Treatment (59639)By: On: 28-Apr-2017 Intent Katerine Campo DO Comments: no noise after aeorols inspir or exp Radiology - Chest- PA and On: 28-Apr-2017 Intent LatBy: Katerine Campo DO Spirometry (60021)By: Alber On: 28-Apr-2017 Intent Katerine SANCHEZ Comments: normal SCREENING DIGITAL On: 19-Jan-2017 Intent TOMOSYNTHESIS OF BREAST (63898)By: Diana Troncoso MD, MD, Dana M Holter Monitor 24 hrsBy: On: 10-Nov-2016 Intent Diana Troncoso MD Comments: copy to nazLizhindjorge and him to read. Diana NUNEZ Radiology [...] DO Comments: stat call results Aerosol Treatment (70832)By: On: 26-Jun-2016 Marleni Lara DO Comments: with albuterol Holter Monitor 24 hrsBy: On: 21-May-2016 Intent Diana Troncoso MD, MD, Dana M EKG (38988)By: You, On: 21-May-2016 Intent SAMI Comments: see [...] M Flu Vaccine (Quadrivalent) On: 31-Jan-2016 Intent 69015Yh: Diana Troncoso MD Comments: Lot:[id number]:10/16/16Dose:0.5mLRoute:IMSite:L DltdGiven By:CHRISSIE signed Diana Troncoso MD MAMMOGRAM, SCREENING, BOTH On: 20-Jan-2016 Intent BREAST (19135)By: Diana Troncoso MD, MD, Dana M Flu Vaccine (Quadrivalent) On: 05-Feb-2015 Intent 90658Nu: Diana Troncoso MD Comments: Lot:[id number]:10/17/15Dose:0.5mLRoute:IMSite:L DltdGiven By:CHRISSIE signed Diana Troncoso MD IMMUNIZ ADMNIN, 1 VAC, On: 14-Jan-2015 Intent SNGL/COMBO (37327)By: Visit, Nurse ZOSTER VACC, [place] (37638)By: On: 14-Jan-2015 Intent Diana Troncoso MD Comments: lot: [id number]: 09/02site/route: R arm/SQamt:0.5mLVIS signed when applicableONUR Ballard MD, Dana M ADMINISTRATION OF On: 07-Jan-2015 Intent PNEUMOCOCCAL VACCINE (G0009)By: Izabela Rehman BILATERAL MAMMOGRAMS On: 18-Dec-2014 Intent (31233)By: Diana Troncoso MD, MD, Dana M Solu -Medrol Injection, 125 On: 19-Nov-2014 Intent mg (J2930)By: Jacquelyn Garcia CNP Aerosol Treatment (58873)By: On: 19-Nov-2014 Intent Jacquelyn Garcia CNP Wax CurettesBy: Manjit NUNEZ, On: 03-Jul-2014 Intent Diana Pena MD Ear Irrigation (71800)By: On: 03-Jul-2014 Intent Diana Troncoso MD Comments: IrrigationSite- R earAmount/Color/Quality - medium amount of soft, dark brown cerumen removed Toelrated well: yesCurette ONUR Schofield MD, Dana M Rocephin Injection, 2 Gram On: 03-Jul-2014 Intent (J0696)By: Diana Troncoso MD Comments: IMlot: [id number]: 12/18/16site/route: RGM and LGMamt: 2GVIS signed when applicableONUR Ballard MD, Dana M Solu -Medrol Injection, 125 On: 03-Jul-2014 Intent mg (J2930)By: Manjit NUNEZ, Comments: lot: [id number]: site/route: LGM/IMamt: 2mLVIS signed when applicableONUR Ballard MD, Dana M ELECTROCARDIOGRAM, COMPLETE On: 03-Jul-2014 Intent (ECG) (09899)By: Diana Troncoso MD, MD, Dana M Radiology - ChestBy: Ciesa On: 02-Jul-2014 Intent GRACE Kaitlin Aerosol Treatment (80043)By: On: 29-Jun-2014 Intent Jacquelyn Garcia CNP Solu -Medrol Injection, 125 On: 13-Jun-2014 Intent mg (J2930)By: Ciparam EDWARDS Kaitlin Aerosol Treatment (96068)By: On: 13-Jun-2014 Intent Jacquelyn Garcia CNP Radiology - ChestBy: Ciesa On: 06-Jun-2014 Intent GRACE Kaitlin Aerosol Treatment (80308)By: On: 06-Jun-2014 Intent Nat Boyle LPN Radiology - Knee - RightBy: On: 09-Apr-2014 Intent Katerine Campo DO Ypthkmvvr-Xmh-Lpgkn On: 09-Apr-2014 Intent (18997)By: Katerine Campo DO ADMINISTRATION OF INFLUENZA On: 12-Feb-2014 Intent VIRUS VACCINE (G0008)By: Comments: Lot #[id number]-L dltd, IMDose prefilled syringegiven by:SILAS Meredith and ABN signed Visit, Nurse FLU VAC, SPLIT, >3 YEARS, On: 12-Feb-2014 Intent INTRAMUSC (20964)By: Visit, Nurse Ultrasound - LiverBy: Radha On: 23-Jan-2014 Intent Jacquelyn EDWARDS Lwxqzarsu-Otq-Xbmtx On: 25-Sep-2013 Intent (58234)By: Jacquelyn Garcia CNP SPECIMEN HANDLING/TRANSPORT On: 21-Jun-2013 Intent (58915)By: Pinawillian EWDARDS Jacquelyn Bean Breast Screening - On: 20-Jun-2013 Intent BilateralBy: Manjit NUNEZ, Diana Troncoso MD, Diana Nicole ADMINISTRATION OF INFLUENZA On: 08-May-2013 Intent VIRUS VACCINE (G0008)By: Nellie Hickey FLU VAC, SPLIT, >3 YEARS, On: 08-May-2013 Intent INTRAMUSC (83678)By: Manjit Comments: lot [id number] 2014site/route L kely, IMamt 0.5mlVIS and ABN signed when applicableONUR Ballard MD, Diana Troncoso MD, Diana Nicole Aerosol Treatment (44707)By: On: 21-Apr-2013 Intent Radha EDWARDS Jacquelyn Bean SPECIMEN HANDLING/TRANSPORT On: 16-Jan-2013 Intent (88546)By: Danisha Dawson LPN Venous Doppler - RightBy: On: 05-Dec-2012 Intent Pinawillian EDWARDS Kaitlin Radiology - Knee - RightBy: On: 05-Dec-2012 Intent Radha EDWARDS Jacquelyn Bean Holter Moniter (22025)By: On: 24-Nov-2012 Intent Katerine Campo DO Nuclear Stress Test/Stress On: 24-Nov-2012 Intent SPECT/TreadmillBy: Katerine Campo DO Echo CompleteBy: Alber SANCHEZ, On: 24-Nov-2012 Intent Katerine EKG (62161)By: Ernesto, On: 24-Nov-2012 Intent Shayy MATHEW Comments: nsr mild st depression lateral precordial leads MAMMOGRAM, SCREENING, BOTH On: 17-May-2012 Intent BREASTS (08093)By: Manjit NUNEZ, Diana Pena MD FLU VAC, SPLIT, >3 YEARS, On: 29-Mar-2012 Intent INTRAMUSC (21952)By: Ori, Comments: Lot:[id number]:6.30.13Dose:0.5mLRoute:IMSite:L DltdGiven By:JKMVIS signed Izabela ADMINISTRATION OF INFLUENZA On: 29-Mar-2012 Intent VIRUS VACCINE (G0008)By: Izabela Rehman Radiology - Wrist - LeftBy: On: 29-Sep-2011 Intent Diana Troncoso MD, MD, Diana Nicole Eprescribed prescriptions On: 29-Sep-2011 Intent (G8553)By: Diana Troncoso MD, MD, Dana M Aerosol Treatment (52014)By: On: 12-Jun-2011 Intent Ciesa GEOPHYSICAL COMPUTER, Kaitlin IMMUNIZ ADMNIN, 1 VAC, On: 03-Apr-2011 Intent SNGL/COMBO (28123)By: Diana Troncoso MD, MD, Dana M FLU VAC, SPLIT, >3 YEARS, On: 03-Apr-2011 Intent INTRAMUSC (39344)By: Manjit NUNEZ, Diana Troncoso MD, Diana Nicole MAMMOGRAM, SCREENING, BOTH On: 03-Apr-2011 Intent BREASTS (72758)By: Diana Troncoso MD, MD, Dana M Radiology - ChestBy: Ciesa On: 21-Jul-2010 Intent GEOPHYSICAL COMPUTER, Kaitlin Pulse Oximetry (65814)By: On: 21-Jul-2010 Intent Ciesa GEOPHYSICAL COMPUTER, Kaitlin Aerosol Treatment (34970)By: On: 21-Jul-2010 Intent Ciesa GEOPHYSICAL COMPUTER, Kaitlin CT - Abdomen & PelvisBy: On: 22-May-2010 Intent Manjit NUNEZ, Diana Troncoso Comments: wet read Diana Chandra MD Aerosol Treatment (49746)By: On: 10-Mar-2010 Intent Katerine Campo DO Comments: less noise adn more air exchg after aerosol -- still some wheezing and harsh noise Spirometry (17443)By: Alber On: 10-Mar-2010 Intent Katerine SANCHEZ Comments: mild obstruction - with FEV 1 of 83% Solu- Medrol Injection, 125mg On: 10-Mar-2010 Intent (J2930)By: Alber SANCHEZ, Comments: 2ml given im in lt hip [id number] exp 10-18-[address] - Brain/HeadBy: Alber SANCHEZ, On: 10-Mar-2010 Intent Katerine Pulse Oximetry (46067)By: On: 10-Mar-2010 Intent Alber DO, Katerine Tbjqtifqk-Fnm-Paszp On: 10-Mar-2010 Intent (06773)By: Katerine Campo DO Radiology - ChestBy: Alber On: 10-Mar-2010 Intent Katerine SANCHEZ Solu -Medrol Injection, 125 On: 07-Mar-2010 Intent mg (J2930)By: Radha EDWARDS, Comments: Lot #[id number]/12Site-L hip XENeqb3eqwjves by:SHIRA Bean Aerosol Treatment (30707)By: On: 07-Mar-2010 Intent Jacquelyn Garcia CNP Pulse Oximetry (58516)By: On: 24-Feb-2010 Intent Jacquelyn Garcia CNP Inhaler Demonstration On: 24-Feb-2010 Intent (59723)By: Jacquelyn Garcia CNP Aerosol Treatment (77001)By: On: 24-Feb-2010 Intent Jacquelyn Garcia CNP ADMINISTRATION OF INFLUENZA On: 03-Feb-2010 Intent VIRUS VACCINE (G0008)By: Kanu Comments: Lot #[id number] 4PExp- 4/11Site- L Dltd/IMDose 0.5mlgiven by: QUINCY SILVA LPN, Megan L FLU VAC, SPLIT, >3 YEARS, On: 03-Feb-2010 Intent INTRAMUSC (93176)By: Kanu MATHEW, Eduardo L FLU VAC, SPLIT, >3 YEARS, On: 31-Jan-2010 Intent INTRAMUSC (22207)By: Augusto CLEMENTS, Comments: injection given in left deltoid,see scanned document/ [facility] IMMUNIZ ADMNIN, 1 VAC, On: 31-Jan-2010 Intent SNGL/COMBO (76526)By: Augusto CLEMENTS, Danita MAMMOGRAM, SCREENING, BOTH On: 25-Jul-2009 Intent BREASTS (90479)By: Manjit NUNEZ, Diana Troncoso MD, Diana Nicole Pulse Oximetry (69370)By: On: 28-Mar-2009 Intent SAMI Orta Flu Vaccine, Split IM On: 11-Jan-2009 Intent (26758)By: Rani MATHEW, Comments: Lot #[id number] 4PExp-5/2009Site-Left deltoidgiven by:FLIP Kruger CurettesBy: Radha EDWARDS, On: 02-Jul-2008 Intent Kaitlin Ear Irrigation (38598)By: On: 02-Jul-2008 Intent Jacquelyn Garcia CNP Aerosol Treatment (10351)By: On: 02-Jul-2008 Intent Jacquelyn Garcia CNP Bio Z (18561)By: Manjit NUNEZ, On: 04-May-2008 Intent Diana Troncoso MD, Diana Nicole EKG (31357)By: Manjit NUNEZ, On: 04-May-2008 Intent Diana Troncoso MD, Diana Nicole Holter Moniter (76560)By: On: 04-May-2008 Intent Manjit NUNEZ, Diana Troncoso MD, Diana Nicole Nuclear Stress Test/Stress On: 04-May-2008 Intent SPECT/AdenosineBy: Manjit NUNEZ, Diana Troncoso MD, Diana Nicole Echo CompleteBy: Manjit NUNEZ, On: 04-May-2008 Intent Diana Pena MD Cartoid DopplerBy: Manjit On: 04-May-2008 Intent , Diana Troncoso MD, Diana Nicole FLU VAC, SPLIT, >3 YEARS, On: 20-Mar-2008 Intent INTRAMUSC (44100)By: Yared, Comments: Lot #[id number]-8/30/08Site-right deltoidDose0.5mlgiven by Caro Armenta IMMUNIZ ADMNIN, 1 VAC, On: 20-Mar-2008 Intent SNGL/COMBO (41361)By: Kathi Vail Radiology - ChestBy: Manjit On: 28-Feb-2008 Intent Diana NUNEZ MD, Diana Nicole Comments: not better end of week INFUSION, NORMAL SALINE On: 06-Jul-2007 Intent SOLUTION , 250 CC (J7050)By: Jacquelyn Garcia CNP THER/PROPH/DIAG IV INF, INIT On: 06-Jul-2007 Intent (78992)By: Jacquelyn Garcia CNP Rocephin Injection, 2 Gram On: 06-Jul-2007 Intent (J0696)By: Jacquelyn Garcia CNP Comments: 2gms infused left hand without problem HYDRATION IV INFUSION, INIT On: 05-Jul-2007 Intent (66620)By: Jacquelyn Garcia CNP Comments: #22 gauge started to left forearm area without difficulty per gosia Vancoymcin 500mg/premixedBy: On: 05-Jul-2007 Intent Jacquelyn Garcia CNP Comments: x2Lot #:[id number] date:09-17-08 Amount given:1 gram Route: IVSite given:left forearm area Given by: gosia dance master IMMUNIZ ADMNIN, 1 VAC, On: 08-Feb-2007 Intent SNGL/COMBO (91342)By: Marleni Kang DO FLU VAC, SPLIT, >3 YEARS, On: 08-Feb-2007 Intent INTRAMUSC (62502)By: Jorge Luis SANCHEZ, Comments: given in left deltoid, 0.5cc, lot#[id number], exp.10.17.07 WF Marleni Valencia THER/PROPH/DIAG IV INF, INIT On: 24-Jan-2007 Intent (69736)By: Marleni Kang DO Comments: #22 gauge initiated right forearm without difficulty per gosia INFUSION, NORMAL SALINE On: 24-Jan-2007 Intent SOLUTION , 250 CC (J7050)By: Marleni Kang DO Rocephin Injection, 2 Gram On: 24-Jan-2007 Intent (J0696)By: Marleni Kang DO Comments: Lot #:[id number] date:06-25Amount given:2 grams Route: IVSite given:right forearm Given by: gosia MAMMOGRAM, SCREENING, BOTH On: 26-Aug-2006 Intent BREASTS (13900)By: Manjit Comments: 10-12-06 , Diana Troncoso MD, Diana Nicole ELECTROCARDIOGRAM, COMPLETE On: 26-Aug-2006 Intent (ECG) (81524)By: Manjit NUNEZ, Diana Pena MD Planned Medications [...] The patient does have durable power of trial attorney and living will. The patient has noticed nothing from the geriatic depress ion scale. Other providers contributing to the patient's care are mottle lay up operator, household appliance mechanic and other: [facility]Encounter Diagnosis: BMI 29.0- [...] for Tdap vaccination (Renamed from Need for gqzjbqqqhz-asnyzzt-pjyhnospr (Tdap) vaccine, adult/adolescent) [facility] Office [...] Nutrition: balanced diet and supplemental vitamins. The ut dical issues the patient is following up [...] The patient does have durable power of trial attorney and living will. The patient has noti silvano nothing from the geriatic depression scale. Other providers contributing to the patient's care are mottle lay up operator (Dr Young), florist supplies salesperson (Arin - when had pneumonia but not currently in need of his care at this time), household appliance mechanic (dr Garland), surgeon ([facility] - shoulder) and other: (dentist - Dr Chiu - [facility] - goes every 3 years. Last [...] or bracelet or put area rugs thro [facility] house. The patient has completed the following preventative measures: PAP smear (many years ago will have today ), mammography () and colonoscopy (2005). The patient does have durable power of trial attorney and living will. The patient has noticed nothing from the geriatic depression scale. Other providers contributing to the patient's care are mottle lay up operator (Dr. Young ), gastrologist (Dr. Cande novak ), household appliance mechanic (Dr. Garcia ) and other: (Dr. Reza [...] oral corticosteroids (celebrex).Encounter Diagnosis: Knee pain, right (979.46) [facility] Phone Encounter On: 25-Nov-2012 [...] visit: still red and tender to touch, [place] took out cyst and dr sifuentesned it.- [...]
--- OUTSIDE RECORDS SUMMARY | 2018-07-07 08:25 | XMS RPT_ITS | Continuity of Care Document ---
:1940 Author Organization [facility] Address [address] [facility] [address] [place] [address] Phone Care Team Providers Name Role Phone [...] MD, Dana M Start : 29-Jun-2017 Active F-Uogfemvovmxa-Uqbnm 7.5-90.314 MG Oral Capsule 1 (one) Capsule [...] 20-May-2017 End : 29-Jun-2017 Inactive Comments:called to [facility] in [place], [phone] Medrol 4 MG Oral Tablet Therapy Pack [...] End : 10-Mar-2010 Discontinued CALCIUM + D, 400-989DM-KKZR (Oral Tablet) 2 qd for 0 days [...] Arthritis (M19.90, 716.90) Comments: Dr. Garcia in [place] stable off meds now doign well last [...] directly onto right side, onto deck into [facility] has swelling and ecchymosis Status: Resolved as [...] for Tdap vaccination (Renamed from Need for fupmococzj-qanzppe-xzkiurkpy (Tdap) vaccine, adult/adolescent) (Z23, V06.1) Status: Resolved [...] VAC ADLT/IMUMNOSPR, SBC/INTRM Date: 07-Jan-2015 Completed 07-Jan-2015 (43121) Comments: Lot:[id number]:05/01/16Dose:0.5mgRoute:imSite:ganga Roberts By:FRANCA given on 01/03/15VIS signed Colonoscopy Completed Comments: 2005 colonoscopy Completed Comments: Dr Bailey - around age 56 or 66 D&C to get Completed Comments: x3 PACEMAKER IMPLANTATION (12600) Completed Comments: dual chamber 06-29-[address] [facility] [address] Fleming ROTATOR CUFF REPAIR Completed Comments: Left, July 31 2005, Dr Josue Tonsillectomy Completed Tubal Ligation Completed Date Value Details 18-Jan-2018 Cardiology Visit Report Result: Comments: See Note; NOTES: [facility] [place] [address] OFFICE VISIT Date of Service: 01/18/18 MR#: [id number] Acct: [id number] Name: MALI WALDEN Ruchi bazzi #: [id number] : 1940 Provider: ELISE Bah Age/Sex: 77/F [place] [facility] Status: Signed HPI HPI Details: MALI WALDEN, [...] mg PO DAILY 06/08/17 [History Confirmed 01/18/18] Turin-3 Fatty Acids/Fish Oil [Fish Oil 1,000 mg [...] Clear to Auscultation Cardio Palpation: normal P MN Rate: regular rate Rhythm: regular rhythm Heart [...] rhythm of AAI pacing at 98 ppm, LAMINATING MACHINE OPERATOR=0%, AP=96.2%, and battery life estimated to be [...] CT w/CCTA Result: Comments: See Note; NOTES: [facility] Imaging Services [address] [place] [address] w/CCTA MR#: [id number] Acct: [id number] Name: MALI WALDEN Rep #: [id number] : 1940 F 77 From: Archie Alvares MD PCP: Diana Troncoso MD Status: REG CLI Study: Limited Chest CT w/CCTA Date of Exam: 12/16/17 Exam# [id number] Ordering Dr: Diana Troncoso MD STUDY: CT [...] Archie Alvares MD at 9:03 EDT Tel [phone], Service support , CC: Diana Troncoso MD Survival Specialist: Signed 02-Dec-2017 Pacemaker Check Result: Comments: See Note; NOTES: [facility] [address] [place] [address] Pacemaker Check Date of Service: 12/01/172006 MR#: [id number] Acct: [id number] Name: EDDIE WALDEN Rep #: [id number] : 1940 From: Nishi Johnson Age/Sex: 77/F [place] [facility] Status: Signed 12/01/172008 <Electronically signed by Nishi Johnson > Date Nishi Johnson 12/02/17 0855<Electronically signed by Manoj Young MD> Cosigner Signature: Date (if applicable) Manoj Young MD CC: 04-Sep-2017 Cardiology Visit Report Result: Comments: See Note; NOTES: [facility] [place] 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 6 wk post implant [...] rhythm shows AAI pacing @ 71 ppm. LAMINATING MACHINE OPERATOR=0.1%. Estimated battery life 9 yrs. Device and lead measurements stable. Decreased A/V amplitudes with adequate safety margin to preserve battery longevity. Counters cleared. Next remote f/u appt scheduled for in 3 mos. Device Device Date Interviewed: 08/20/17 Follow-up Location: in office Interview Reason: scheduled follow up Manufact urer: Medtronic Name: Fazal GALLOWAY Model: A2DR01 Serial #: [id number] Implant Date: 06/28/17 Year(s): 0 Implant Physician: Dr. Brennan Fleming/[facility] Patient Characteristics Atrial Indication: sick sinus synd gino, Paroxysmal atrial fibrillation Patient Substrate: Arrhythmia Underlying rhythm: Sinus bradycardia Pacemaker Dependent: No Device Characteristics Device: Dual Chamber Type: Pacemaker Remote Follow- Up: [facility] Device Physical Exam Yes Incision well healed Leads Lead #1 Underwriter Mortgage Loan Lead 1: Medtronic Model Lead 1: 5076/45 Serial# Lead 1: [id number] Date Implanted Lead 1: 06/28/17 Position Lead 1 : RA Lead #2 Underwriter Mortgage Loan Lead 2: [employer] Model Lead 2: 5076/52 Serial# Lead 2: [id number] Date Implanted Lead 2: 06/28/17 Position Lead [...] Discharge Instruction Result: Comments: See Note; NOTES: [facility] Medical Records Department [address] [place] [address] Instructions for Home/Discharge Instructions 06/29/17 1042 MR#: [id number] Acct: [id number] Name: MALI WALDEN Rep #: [id number] : 1940 76 From: Brennan Fleming MD PCP: Diana Troncoso MD Status: REG [facility] Discharge Diet: No Restrictions Discharge Activity: Return [...] call your doctor's office or Doctor's Registry ([phone]) Call 911 or go to the nearest [...] mg tablet 12.5 mg PO DAILY 06/08/17 Turin-3 Fatty Acids/Fish Oil [Fish Oi l 1,000 mg Capsule] 1 each PO DAILY 06/28/17 Primary Care Physician: Diana Troncoso MD [Primary Care Provider] - When: pacer nurse 06/29/17 1050 <Electronically signed by Brennan Fleming MD&am p;#62; Date Brennan Fleming MD CC: Diana Troncoso MD 29-Jun-2017 Chest 1 View Result: Comments: See Note; NOTES: [facility] Imaging Services [address] [place] [address] Chest 1 View MR#: [id number] Acct: [id number] Name: MALI WALDEN Rep #: [id number] : F 76 From: Liam Arreaga PCP: Diana Troncoso MD Status: [facility] Study: Chest 1 View Date of Exam: 06/29/17 Exam# [id number] Ordering Dr: Brennan Fleming MD STUDY: X-RAY [...] CC: Brennan Fleming MD; Diana Troncoso MD Survival Specialist: Signed 29-Jun-2017 Chest PA and Lateral Result: Comments: See Note; NOTES: [facility] Imaging Services [address] [place] [address] Chest PA and Lateral MR#: [id number] Acct: [id number] Name: MALI WALDEN Rep #: [id number] : 1940 F 76 From: Liam Arreaga PCP: Diana Troncoso MD Status: REG [facility] Study: Chest PA and Lateral Date of Exam: 06/29/17 Exam# [id number] Ordering Dr: Brennan Fleming MD STUDY: X-RAY [...] CC: Brennan Fleming MD; Diana Troncoso MD Survival Specialist: Signed 22-Jun-2017 Office Visit Report Result: Comments: See Note; NOTES: [facility] [address] [address] OFFICE VISIT Date of Service: 06/21/17 MR#: [id number] Acct: [id number] Patient: MALI WALDEN Rep #: [id number] : 1940 Provider: Nishi Johnson Age/Sex: 76/F Location: [facility] Status: Signed Comments Summary Comments: Pacemaker instructions, [...] Stress Report Result: Comments: See Note; NOTES: [facility] Cardiovascular Services [address] [place] [address] MR#: [id number] Acct: [id number] Name: MALI WALDEN Rep #: [id number] : [birth year] 76 From: Brennan Fleming MD [...] Vang Date Dictated: 06/15/17921 Date Transcribed: 06/15/17921 Survival Specialist: [place] Signed 09-Jun-2017 Cardiology Visit Report Result: Comments: See Note; NOTES: [facility] [address] [place] [address] OFFICE VISIT Date of Service: 06/08/17 MR#: [id number] Acct: [id number] Name: JORGEMALINAY bazzi #: [id number] : 1940 Provider: Amna Vang Age/Sex: 76/F [place] [facility] Status: Signed HPI HPI Details: [...] was in the hospital last month in [place]. She was lightheaded and dizzy. 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, vomiting blood/hematemesis, bright, red blood in [...] and Lateral Result: Comments: See Note; NOTES: [facility] Imaging Services [address] [place] [address] Chest PA and Lateral MR#: [id number] Acct: [id number] Name: MALI WALDEN Rep #: [id number] : 1940 F 76 From: Tex Junior DO PCP: Diana Troncoso MD Status: [facility] CLI Study: Chest PA and Lateral Date of Exam: 04/28/17 Exam# [id number] Ordering Dr: Katerine Campo DO STUDY: X-RAY [...] Tex Junior DO at 9:39 EST Tel [phone], Service support , CC: Diana Troncoso MD; Katerine Campo DO Survival Specialist: Signed 02-Mar-2017 SCREENING MAMM (CAD), BILAT Result: Comments: See Note; NOTES: [facility] Imaging Services [address] [place] [address] SCREENING MAMM (CAD), BILAT MR#: [id number] Acct: [id number] Name: MALI WALDEN Rep #: [id number] : 1940 F 76 From: Archie Alvares MD PCP: Diana Troncoso MD Status: REG CLI Study: SCREENING MAMM (CAD), BILAT Date of Exam: 03/02/17 Exam# [id number] Ordering Dr: Diana Troncoso MD MA MMOGRAPHY [...] delay biopsy of a clinically suspicious abnormality. [id number] Electronically Signed: Archie Alvares MD at 16:04 EST Tel [phone], Service support , CC: Diana Troncoso MD Survival Specialist: Signed 03-Jan-2017 Inital Evaluation (1) - PT Result: Comments: See Note; NOTES: [facility] Therapy [facility] [address] [place] [address]. [address] [place] [address] Fax REHABILITATION SERVICES INITIAL EVALUATION MR#: [id number] Acct: [id number] Name: MALI WALDEN Rep #: [id number] : 1940 76 From: Moody Tang DPT Referring Dr.: Berto Carrillo MD Status: REG RCR [facility] Information MALI WALDEN is [...] gym exercises with increased tolerance. - Pain Medial/bezel cutter ior L knee Pain Intensity (Out of [...] to be FAXED BACK to us at [phone] for Medicare purposes. Please let me know if there are questions or concerns regarding this plan of care . Physician Signature: Date: <Electronically signed by Moody Tang DPT> 01/03/17 1457 CC: Diana Troncoso MD; Berto lawrence MD CLS Signed For Medicare only, by signing this I certify the plan of care. Physicians Signature Date 03-Dec-2016 Carotid Duplex Ultrasound Result: Comments: See Note; NOTES: [facility] Cardiovascular Services [address] [place] [address] Carotid Duplex Ultrasound 12/03/16 1106 MR#: [id number] Acct: [id number] Name: MALI WALDEN Rep #: [id number] : 1940 76 From: Charlie Aragon MD [...] the left vertebral artery. Procedure Carotid Duplex [address]6815. The exam was diagnostic. Exam performed in department. Interpretation Summary M ild (<50%) stenosis right extracranial internal carotid. Mild (<50%) stenosis left extracranial internal carotid. Flow within the vertebral arteries is antegrade bilaterally. Ordering Physician: Manoj Young Performed By: Rey Sánchez, RVT 12/03/162032 Date Charlie Aragon MD CC: Diana Troncoso MD; Manoj Young MD Date Dictated: 12/03/16 1106 Date Transcr ibed: 12/03/162032 Survival Specialist: Signed 28-Jul-2016 PT D/C Summary (1) Result: Comments: See Note; NOTES: [facility] Physical Therapy [address] [place] [address] Fax [facility]HABILITATION [facility] MR#: [id number] Acct: [id number] Name: MALI WALDEN Rep #: [id number] : 1940 75 From: Yolanda Cassidy PT, Cert. MDT Referring Dr.: Diana Troncoso MD Status: REG RCR Insurance: [facility] - PT D/C Summary It has been [...] PAIN NOW. 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 Thank you for the referral of this patient. Sincerely, Yolanda Cassidy <Electronically signed by Yolanda Cassidy PT, Cert. MDT> 07/28/16 1143 CC: Diana Troncoso MD TERESSA Signed 26-Jun-2016 Chest PA and Lateral Result: Comments: See Note; NOTES: [facility] Imaging Services [address] [place] [address] Verdana 4d Chest PA and Lateral MR#: [id number] Acct: [id number] Name: MALI WALDEN Vikas Rep #: [id number] : 1940 F 75 From: Rubens Waters MD PCP: Diana Troncoso MD Status: REG CLI Study: Chest PA and Lateral Date of Exam: 06/26/16 Exam# [id number] Ordering Dr: Marleni Kang DO STUDY: X-RAY [...] at 13:11 EST Tel , Service support [phone], CC: Diana Troncoso MD; Marleni Kang DO Survival Specialist: Signed 20-May-2016 Re-Evaluation - PT (1) Result: Comments: See Note; NOTES: [facility] [address] [place] [address]. [address] [place], [place] [address] Fax REEVALUATION / MEDICARE RECERTI FICATION [place] 4d PHYSICAL THERAPY MR#: [id number] Acct: [id number] Name: MALI WALDEN Rep #: [id number] : 1940 75 From: Yolanda Cassidy PT, Cert. MDT Referring Dr.: Diana Troncoso MD Status: REG RCR 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 Sincerely, Yolanda Cassidy < Electronically signed by Yolanda Cassidy PT, Cert. MDT> 05/20/16 1026 CC: Diana Troncoso MD TERESSA Signed For Medicare only, by signing this I certify the plan of care. _ Physicians Signature Date 07-May-2016 Liver Result: Comments: See Note; NOTES: [facility] Imaging Services [address] [place] [address] Verdana 4d Liver MR#: [id number] Acct: [id number] Name: MALI WALDEN Rep #: [id number] : 1940 F 75 From: Archie Alvares MD PCP: Diana Troncoso MD Status: REG CLI Study: Liver Date of Exam: 05/07/16 Exam# [id number] Ordering Dr: Diana Troncoso MD STUDY: ABDOMINAL [...] Archie Alvares MD at 10:59 EST Tel [phone], Service support [phone], CC: Diana Troncoso MD Survival Specialist: Signed 23-Apr-2016 Inital Evaluation (1) - PT Result: Comments: See Note; NOTES: [facility] [address] [place] [address]. [address] [place] [address] Fax REHABILITATION SERVICES INITIAL EVALUATION MR#: [id number] Acct: [id number] Name: MALI WALDEN Rep #: [id number] : 1940 75 From: Yolanda Cassidy PT, Cert. MDT Referring Dr.: Diana Troncoso MD Status: REG RCR [facility] Patient's Visit Information MALI WALDEN is a [...] be FAXED BACK to u s at [phone] for Medicare purposes. Please let me know [...] with Pelvis Result: Comments: See Note; NOTES: [facility] Imaging Services [address] [place] [address] Verda 4d Hip 2-3 Views with Pelvis MR#: [id number] Acct: [id number] Name: MALI WALDEN Rep #: [id number] : 1940 F 75 From: Archie Alvares MD PCP: Diana Troncoso MD Status: REG CLI Study: Hip 2-3 Views with Pelvis Date of Exam: 02/10/16 Exam# [id number] Ordering Dr: Diana Troncoso MD STUDY: X-RAY [...] Archie Alvares MD at 13:03 EDT Tel [phone], Service support [phone], CC: Diana Troncoso MD Survival Specialist: Signed 10-Feb-2016 L/S Spine Min 4 Views Result: Comments: See Note; NOTES: [facility] Imaging Services [address] [place] [address] [place] 4d L/S Spine Min 4 Views MR#: [id number] Acct: [id number] Name: MALI WALDEN Rep #: [id number] : 1940 F 75 From: Archie Alvares MD PCP: Diana Troncoso MD Status: REG CLI Study: L/S Spine Min 4 Views Date of Exam: 02/10/16 Exam# [id number] Ordering Dr: Diana Troncoso MD S TUDY: [...] Archie Alvares MD at 12:46 EDT Tel [phone], Service support [phone], CC: Diana Troncoso MD Survival Specialist: Signed 22-Jan-2016 Bilat Scrn Digital AND CAD Result: Comments: See Note; NOTES: [facility] Imaging Services [address] [facility] [address] Verdana 4d Bilat Scrn Digital AND CAD MR#: [id number] Acct: [id number] Name: MALI WALDEN Rep #: [id number] : 1940 F 75 From: Archie Alvares MD PCP: Diana Troncoso MD Status: REG CLI Study: Bilat Scrn Digital AND CAD Date of Exam: 01/22/16 Exam# [id number] Ordering Dr: Dereck Troncoso MD MAMMOGRAPHY - [...] delay biopsy of a clinically suspicious abnormality. [id number] Electronically Signed: Archie Alvares MD at 10:36 EDT T [phone], Service support [phone], CC: Diana Troncoso MD Survival Specialist: Signed 08-Feb-2015 Emergency Department Summary Result: Comments: See Note; NOTES: [facility] Medical Records Department [address] [place] [address] Emergency Department Summary MR#: [id number] Acct: [id number] Name: MALI WALDEN Rep #: [id number] : 1940 74 From: Solomon Morse MD [...] C: Diana Ribeiro MD T: NTS JOB: [id number] 02/08/15 0119 <Electronically signed by Solomon Morse MD> Date Solomon Morse MD Cosigner Signature (If Indicated): Date CC: Diana Troncoso MD; Naga Ribeiro Date Dictated: 02/07/151633 Date Transcribed: 02/07/151633 Survival Specialist: Signed 07-Feb-2015 Discharge Instruction Result: Comments: See Note; NOTES: [facility] Medical Records Department [address] [place] [address] Discharge Instruction 02/07/151630 MR#: [id number] Acct: [id number] Name: MALI WALDEN Rep #: [id number] : 1940 74 From: Solomon Morse MD [...] problems, contact your doctor. Call Doctors Registry ([phone]) or report to the closest Emergency Room. Call 911 if necessary. 02/07/15 1632 <Electronically signed by Solomon Morse MD> Date Solomon Morse MD Cosigner Signature (If Indicated): Date CC: Diana Troncoso MD 18-Jan-2015 Nuclear Stress Test - Treadmil Result: Comments: See Note; NOTES: [facility] Imaging Services [address] [place] [address] STRESS TEST REPORT 01/18/15 0925 MR#: [id number] Acct: [id number] Name: MALI WALDEN Rep #: [id number] : 1940 74 From: Manoj Young MD [...] LVEF of 67%. Manoj Young MD T: [facility] JOB: [id number] 01/18/15 1221 <Chapito jara signed by Manoj Young MD> Date Manoj Young MD CC: Diana Troncoso MD; Manoj Young MD Date Dictated: 01/18/15924 Date Lux scribed: 01/18/15924 Survival Specialist: Signed 16-Jan-2015 Bilat Scrn Digital AND CAD Result: Comments: See Note; NOTES: [facility] Imaging Services [address] [place] [address] Breast Imaging Report MR#: [id number] Acct: [id number] Name: MALI WALDEN Rep #: [id number] : 1940 F 74 From: Archie Alvares MD PCP: Diana Troncoso MD Status: REG CLI Study: Bilat Scrn Digital AND CAD Date of Exam: 01/16/15 Exam# [id number] Ordering Dr: Diana Troncoso MD MAMMOGRAPHY - [...] Archie belle MD at 15:35 EDT Tel [phone], Service support [phone], CC: Diana Troncoso MD Survival Specialist: Signed 16-Dec-2014 Emergency Department Summary Result: Comments: See Note; NOTES: [facility] Medical Records Department [address] [place] [address] Emergency Department Summary MR#: [id number] Acct: [id number] Name: MALI WALDEN Rep #: [id number] : 1940 74 From: George Colvin DO [...] condition. George Colvin DO T: NTS JOB: [id number] 12/16/14 1607 <Electronically signed by George Colvin DO> Date George Colvin DO Cosigner Signature (If Indicated): Date CC: Diana Troncoso MD Date D ictated: 12/16/141039 Date Transcribed: 12/16/141039 Survival Specialist: Signed 16-Dec-2014 Discharge Instruction Result: Comments: See Note; NOTES: [facility] Medical Records Department [address] [place] [address] Discharge Instruction 12/16/14 1036 MR#: [id number] Acct: [id number] Name: MALI WALDEN Rep #: [id number] : 1940 74 From: George Colvin DO PCP: Diana Troncoso MD Status: REG ER ED Disposition - Plan for ED Patient: Chief Complaint: Abd Pain Instructions: ED Di verticulitis Prescriptions: Hydrocodone Bitart/Apap 5-325 [Ratcliff 5/325] 1 - 2 tablet PO Q4H [...] problems, contact your doctor. Call Doctors Registry ([phone]) or report to the closest Emergency Room. Call 911 if necessary. 12/16/14 1037 <Electronically signed by George martines DO> Date George Colvin DO Cosigner Signature (If Indicated): Date CC: Diana Troncoso MD 16-Dec-2014 Abdomen/Pelvis without Cont Result: Comments: See Note; NOTES: [facility] Imaging Services [address] [place], [place] [address] CAT Scan Report MR#: [id number] Acct: [id number] Name: MALI WALDEN Rep #: [id number] : 1940 F 74 From: Miguel Tidwell PCP: Diana Troncoso MD Status: REG ER Study: Abdomen/Pelvis without Cont Date of Exam: 12/16/14 Exam# [id number] Ordering Dr: George Colvin DO STUDY: CT [...] Sagittal and coronal images were reconstructed. [facility]: July 30, 2010 FINDINGS: The visualized [...] at 10:32 EDT Tel , Service support [phone], CC: Diana wright MD; George Colvin DO Survival Specialist: Signed 13-Nov-2014 Echocardiogram Complete Result: Comments: See Note; NOTES: [facility] Cardiovascular Services [address] [place] [address] Echo Complete 11/13/14 0720 MR#: [id number] Acct: [id number] Name: MARÍA ELENA WALDEN E Rep #: [id number] : 1940 74 From: Manoj Young MD Attending Dr: Manoj Young MD Status: REG CLI Ordering Dr: Manoj Young MD Date: 11/13/14 Location: [facility] Sex: F C Admitted: Procedure This was [...] MD Date Dictated: 11/13/14719 Date Transcribed: 11/13/142054 Survival Specialist: Signed 22-Aug-2014 PT Discharge Summary Result: Comments: See Note; NOTES: [facility] Physical Therapy [facility] [place], [place] [address] Fax REHABILITATION SERVICES DISCHARGE SUMMARY MR#: [id number] Acct: [id number] Name: MALI WALDEN Rep #: [id number] : 1940 73 From: Anibal Decker Referring [...] program and has a membership here at [facility] as she will continue on her [...] followup. Anibal Decker, PT T: NTS JOB: [id number] <Electronically signed by Anibal Decker > 08/22/14 0746 CC: Signed 02-Jul-2014 Chest PA and Lateral Result: Comments: See Note; NOTES: [facility] Imaging Services [address] [place] [address] Radiology Report MR#: [id number] Acct: [id number] Name: MALI WALDEN Rep #: [id number] : 1940 F 73 From: Rubens Waters MD PCP: Diana Troncoso MD Status: REG CLI Study: Chest PA and Lateral Date of Exam: 07/02/14 Exam# [id number] Ordering Dr: Diana Troncoso MD STUDY: X-RAY [...] at 14:51 EDT Tel , Service support , RAD/Chest PA and Lateral IMPRESSION: No acute pulmonary process, no interval change. Electronically Signed: Jorge Waters MD at 14:51 EDT Tel , Service support [phone], CC: Diana Troncoso MD Survival Specialist: Signed 28-Jun-2014 Inital Evaluation - PT Result: Comments: See Note; NOTES: [facility] Physical Therapy [address] [place] [address] Fax REHABILITATION SERVICES INITIAL EVALUATION MR#: [id number] Acct: [id number] Name: MALI WALDEN Rep #: [id number] : 1940 73 From: Anibal Decker Referring [...] one fall was on a trip to [place] when the dog walked in front of [...] is a Silver Sneakers member here at [employer], but has not been able to get [...] reciprocal heel and toe tapping is good. [id number] test is good. Re ciprocal hand tapping [...] will score at least 64/80 [facility] to help show [...] NuStep. Anibal Decker, PT T: NTS JOB: [id number] <Electronically signed by Anibal Decker > 06/28/14 0929 CC: DD: 0 06/27/14 Signed For Medicare only, by signing this I certify the plan of care. Physicians Signature Date 06-Jun-2014 Chest PA and Lateral Result: Comments: See Note; NOTES: [facility] [address] [place] [address] Radiology Report MR#: [id number] Acct: [id number] Name: MALI WALDEN Rep #: [id number] : 1940 F 73 From: Archie Alvares MD PCP: Diana Troncoso MD Status: REG CLI Study: Chest PA and Lateral Date of Exam: 06/06/14 Exam# [id number] Ordering Dr: Jacquelyn Garcia STUDY: X-RAY CHEST [...] Archie Alvares MD at 15:28 EST Tel [phone], Service support [phone], CC: Jacquelyn Garcia; Diana Troncoso MD Survival Specialist: Signed 09-Apr-2014 Knee 4 or More Views Result: Comments: See Note; NOTES: [facility] [address] [place] [address] Radiology Report MR#: [id number] Acct: [id number] Name: MALI WALDEN Rep #: [id number] : 1940 F 73 From: Rubens Waters MD PCP: Diana Troncoso MD Status: REG CLI Study: Knee 4 or More Views Date of Exam: 04/09/14 Exam# [id number] Ordering Dr: Katerine Campo DO STUDY: X-RAY [...] MD at 12:15 EST , Service support [phone], CC: Diana Troncoso MD; Katerine Campo DO Survival Specialist: Signed 09-Apr-2014 Ribs Unil 2V No CXR Result: Comments: See Note; NOTES: [facility] [address] [place] [address] Radiology Report MR#: [id number] Acct: [id number] Name: MALI WALDEN Rep #: [id number] : 1940 F 73 From: Rubens Waters MD PCP: Diana Troncoso MD Status: REG CLI Study: Ribs Unil 2V No CXR Date of Exam: 04/09/14 Exam# [id number] Ordering Dr: Katerine Campo DO STUDY: X-RAY [...] MD at 12:11 EST , Service support [phone], CC: Diana Troncoso MD; Katerine Campo DO Survival Specialist: Signed 07-Feb-2014 Liver Result: Comments: See Note; NOTES: [facility] [address] [place] [address] Ultrasound Report MR#: [id number] Acct: [id number] Name: MALI WALDEN Rep #: [id number] : 1940 F 73 From: Archie Alvares MD PCP: Diana Troncoso MD Status: REG CLI Study: Liver Date of Exam: 02/07/14 Exam# [id number] Ordering Dr: Jacquelyn Garcia STUDY: ABDOMINAL ULTRASOUND [...] Alvares MD at 10:36 ED T Tel [phone], Service support [phone], CC: Jacquelyn Garcia; Diana Troncoso MD Survival Specialist: Signed 25-Sep-2013 Ribs Unil 2V No CXR Result: Comments: See Note; NOTES: [facility] [address] [place] [address] Radiology Report MR#: [id number] Acct: [id number] Name: MALI WALDEN Vikas Rep #: [id number] : 1940 F 72 From: Archie Alvares MD PCP: Diana Troncoso MD Status: REG CLI Study: Ribs Unil 2V No CXR Date of Exam: 09/25/13 Exam# [id number] Ordering Dr: Jacquelyn Garcia STUDY: X-RAY - [...] Archie Alvares MD at 15:44 EDT Tel [phone], Service support [phone], Fax CC: Jacquelyn Garcia; Diana Troncoso MD Survival Specialist: Signed 22-Aug-2013 [employer] Result: Comments: See Note; NOTES: [facility] [address] [place], [place] [address] Breast Imaging Report MR#: [id number] Acct: [id number] Name: MALI WALDEN Rep #: [id number] : 1940 F 72 From: Archie Alvares MD PCP: Diana Troncoso MD Status: REG CLI Exam# [id number] Ordering Dr: Diana Troncoso MD MAMMOGRAPHY - [...] Signed: Corey Monson at 11:24 EDT Tel [phone], Service support [phone], CC: Diana Troncoso MD Survival Specialist: Signed Immunization Name Dates Details Influenza (3 years and up) on: 08-Feb-2007 Comments: given in left deltoid, 0.5cc, lot#[id number], exp.10.17.07 WF Influenza (3 years and up) on: 20-Mar-2008 Comments: Lot #[id number]-8/30/08Site-right deltoidDose0.5mlgiven by Caro Vail LPN Influenza (3 years and up) on: 11-Jan-2009 Comments: Lot #[id number] 4PExp-08/2009Site-Left deltoidgiven by:FLIP Pneumococcal (2 years and up) on: 07-Jan-2015 Comments: Site: Deltoid (Left) Lot #: <Undefined> Pneumococcal conjugate vaccine, 13 valent, IM Comments: winter 2016 [facility] Family History Unknown Family Member Name Dates Details Brother 1 Comments: Bladder CA, prostate, smoker Status: Active Brother 2 Comments: of [place] 66yo, obese Status: Active Daughter 1 Comments: [...] kg/m2 Body Surface Area Calculated 1.76 m2 61-Dmz-774630:53 Pulse 58 /min Comments: Pattern: Regular Respiration [...] copy of this report has been sent [phone].PATIENT NOT FASTINGPERFORMED BY: LabCoJFK Johnson Rehabilitation InstituteXcwbvp1501 [facility] [id number] Info rmation: [phone] (26818) ALT (SGPT) 47 [iU]/L (Abnormal) Range: 0-32 AST (SGOT) 32 [iU]/L (Normal) Range: 0-40 Alkaline Phosphatase 90 [iU]/L (Normal) Range: 39-117 Bilirubin, Direct 0.19 mg/dL (Normal) Range: 0.00-0.40 Bilirubin, Total 0.7 mg/dL (Normal) Range: 0.0-1.2 Albumin 4.5 g/dL (Normal) Range: 3.5-4.8 Protein, Total 6.8 g/dL (Normal) Range: 6.0-8.5 :20 LDL Cholesterol (Direct) Comments: PATIENT WAS FASTINGPERFORMED BY: PleiJFK Johnson Rehabilitation InstituteBvufsq1139 [facility] [id number] LDL Chol. (Direct) 83 mg/dL (Normal) Range: 0-99 : Written Authorization WAR (Normal) Comments: PATIENT WAS FASTINGPERFORMED BY: Crystal Clear VisionMymichigan Medical Center Gladwin6370 [facility] [id number] Comments: Written Authorization Received.Authorization received from EDUARDO BATEMAN LPN 16-31-0474Aeemwb by Holley Ma :20 Metabolic Panel, Comments: PATIENT WAS FASTINGPERFORMED BY: LabOzarks [facility] Center1447 [facility] [id number] BY: Crystal Clear VisionMymichigan Medical Center Gladwin6370 [facility] [id number] [facility] (37900) ALT (SGPT) 38 [iU]/L (Abnormal) Range: 0-32 [...] 8-27 Glucose 126 mg/dL (Abnormal) Range: 65-99 19-Uet-80527:20 LIPOPROTEIN, BLD, BY NMR Comments: PATIENT WAS FASTINGPERFORMED BY: BN [facility] [address] [id number] BY: CB [facility] Nbienu3047 [facility] [id number] (57343) LP-IR Score 66 (Abnormal) Comments: INSULIN RESISTANCE MARKER <--Insulin Sensitive Insulin Resistant--> Percentile in Reference PopulationInsulin Resistance ScoreLP-IR Score Low 25th 50th 75th High <27 27 45 63 >63LP-IR Score is inaccurate if patient is non-fasting. .The LP-IR score is a laboratory developed [facility] that has beenassociated with insulin resistance [...] were developed and their performance characteristicsdetermined by [employer]nexT[employer]. These assays have not been cleared by [...] 1600 - 2000 Very High > 2000 22-Tfx-71613:24 HEPATIC FUNCTION PANEL Comments: PATIENT WAS FASTINGPERFORMED BY: BN [facility] [address] [id number] BY: CB [facility] Uqovan0356 [facility] [id number] (34801) ALT (SGPT) 34 [iU]/L (Abnormal) Range: 0-32 AST (SGOT) 30 [iU]/L (Normal) Range: 0-40 Alkaline Phosphatase 102 [iU]/L (Normal) Range: 39-117 Bilirubin, Direct 0.14 mg/dL (Normal) Range: 0.00-0.40 Bilirubin, Total 0.7 mg/dL (Normal) Range: 0.0-1.2 Albumin 4.4 g/dL (Normal) Range: 3.5-4.8 Protein, Total 6.7 g/dL (Normal) Range: 6.0-8.5 44-Iti-20842:24 LIPOPROTEIN, BLD, BY NMR Comments: PATIENT WAS FASTINGPERFORMED BY: BN [facility] Efjjxockob5137 [facility] [id number] BY: CB [facility] Tvkimj0152 [facility] [id number]; fu 8-20 DB (61897) LP-IR Score 64 (Abnormal) Comments: INSULIN RESISTANCE MARKER <--Insulin Sensitive Insulin Resistant--> Percentile in Reference PopulationInsulin Resistance ScoreLP-IR Score Low 25th 50th 75th High <27 27 45 63 >63LP-IR Score is inaccurate if patient is non-fasting. .The LP-IR score is a laboratory developed [facility] that has beenassociated with insulin resistance [...] were developed and their performance characteristicsdetermined by [employer]. These assays have not been cleared by [...] 1600 - 2000 Very High > 2000 38-Atz-414498:19 Basic Metabolic Profile (BMP) Comments: Order Date: 07/30/17Order Info: 0667-1 - [facility] [address] [place], [address] GAP 10 (Normal) Range: 5-15 CO2 27.0 [...] A.D.A. criteria.Please note revised GLUCOSE reference range uihdfmrgx00/02/2018. 83-Wrt-233671:19 CBC W/Diff, Automated Comments: Order Date: 07/30/17Order Info: 0184-1 - CBCDOrder Info: 14877-9 [facility] [address] [place], [place], [address] Absolute Lymph 2.02 {X10_3/ul} (Normal) Range: 0.83-4.51 [...] 4.2-5.4 WBC 10.0 K/mm3 (Normal) Range: 4.4-11.0 53-Owc-129984:19 Erythrocyte Sed Rate Comments: Order Date: 07/30/17Order Info: 0184-1 - CBCDOrder Info: 19719-0 - [facility] [address]dldnh[address] [place], [place], [address] SED RATE 26 mm/h (Normal) Range: 0-30 88-Fwh-106325:59 Urinalysis, Office (11065) UA - LEUKOCYTE ESTERASE Negative (Normal) UA - NITRITE Negative (Normal) URINE UROBILINGN SILVESTRE TIMED Normal mg/dL (Normal) UA - PROTEIN Negative mg/dL (Normal) UA - PH 7 (Normal) UA - BLOOD Negative (Normal) UA - SPECIFIC GRAVITY 1.015 (Normal) UA - KETONES Negative mg/dL (Normal) UA - BILIRUBIN Negative (Normal) UA - GLUCOSE Negative (Normal) 6-Yme-211760:01 Basic Metabolic Profile (BMP) Comments: [facility] [address] [place], [place], [address] GAP 7 (Normal) Range: 5-15 CO2 26.0 [...] Comments: Please note revised GLUCOSE reference range /02/2018. 6-Hta-878214:01 CBC-Complete Blood Cnt No Diff Comments: [facility] [address] [place], [place], [address] MPV 10.5 fL (Normal) Range: 6.2-12.0 PLT [...] Range: 4.4-11.0 :01 Prothrombin Time w/INR Comments: [facility] [address] [place], [place], [address] INR 1.0 (Normal) PROTIME 12.7 s (Normal) Range: 11.7-14.9 3-Wpw-934389:01 Urinalysis, Complete Comments: How was Urine Obtained? STRAW HAT BRUSHER TO [facility] [address] [place], [place], [address] MUCUS, URINE 0 SEEN {/hpf} (Normal) BACTERIA [...] (Normal) CLARITY Clear (Normal) COLOR Yellow (Normal) 9-Gxz-009645:37 Urinalysis, Office (77278) UA - LEUKOCYTE ESTERASE Negative (Normal) UA - NITRITE Negative (Normal) URINE UROBILINGN SILVESTRE TIMED 2 mg/dL (Normal) UA - PROTEIN Negative mg/dL (Normal) UA - PH 7.0 (Normal) UA - BLOOD Negative (Normal) UA - SPECIFIC GRAVITY 1.010 (Normal) UA - KETONES Negative mg/dL (Normal) UA - BILIRUBIN Negative (Normal) UA - GLUCOSE Negative (Normal) 73-Xgs-292454:00 URINE RASHAD CULTURE-SILVESTRE COL Comments: PATIENT NOT FASTINGPERFORMED BY: Plei Mrfsnw5904 [facility] [id number] Information: SRC:UC COUNT (32027) Antimicrobial MIHEAD (Normal) Comments: S = Susceptible; [...] mL (Abnormal) Urine Final report Culture,Comprehensive (Abnormal) 18-Fga-02611:06 Urinalysis, Office (43634) UA - LEUKOCYTE ESTERASE Large (Normal) UA [...] METABOLIC PANEL, Comments: PATIENT WAS FASTINGPERFORMED BY: Plei[address] [id number] BY: PleiJennifer [place] 2493470 [facility] [id number] COMPREHENSIVE (17328) ALT (SGPT) 45 [iU]/L (Abnormal) Range: 0-32 [...] Comments: PATIENT WAS FASTINGPERFORMED BY: BN [facility] [address] [id number] BY: CB [facility] Zypzlb9997 [facility] [id number] (56942) LP-IR Score 52 (Abnormal) Comments: INSULIN RESISTANCE MARKER <--Insulin Sensitive Insulin Resistant--> Percentile in Reference PopulationInsulin Resistance ScoreLP-IR Score Low 25th 50th 75th High <27 27 45 63 >63LP-IR Score is inaccurate if patient is non-fasting. .The LP-IR score is a laboratory developed i [facility] that has beenassociated with insulin resistance and [...] were developed and their performance characteristicsdetermined by [employer]. These assays have not been cleared by [...] 2000 Very High > 2000 23-Aug-20179:42 TSH (26308) Comments: PATIENT WAS FASTINGPERFORMED BY: Crystal Clear Vision[address] [id number] BY: LabCo Tnrtet9225 Xavier RoadDublin [place] [id number] TSH 2.070 {uIU/mL} (Normal) Range: 0.450-4.500 0-Akj-832626:34 Vitamin B-12 (cyanocobalamin) Comments: these ones today; PATIENT NOT FASTINGPERFORMED BY: Lab[address] [id number] BY: LabCo Jbkfrj7304 Xavier RoadDublin [place] [id number] ([address]281) Vitamin B12 677 pg/mL (Normal) Range: 211-946 1-Cnq-444851:34 RPR (RAPID PLASMA Comments: PATIENT NOT FASTINGPERFORMED BY: Plei[address] [id number] BY: LabCo Mnrlrl9304 Xavier RoadDublin [place] [id number] REAGIN) (45059) RPR Non Reactive (Normal) 0-Dzb-371760:34 Methymalonic Acid, Serum Comments: PATIENT NOT FASTINGPERFORMED BY: Crystal Clear Vision[address] [id number] BY: LabCo Ymyyxh1040 Xavier RoadDublin [place] [id number] Information: [id number], 969942 (12266) Methylmalonic Acid, Serum 176 nmol/L (Normal) Range: 0-378 5-Omg-189932:18 HEPATIC FUNCTION PANEL Comments: PATIENT WAS FASTINGPERFORMED BY: [address] [id number] BY: LabCo Wvortc6112 Xavier RoadDublin [place] [id number] (16298) ALT (SGPT) 36 [iU]/L (Abnormal) Range: 0-32 AST (SGOT) 32 [iU]/L (Normal) Range: 0-40 Alkaline Phosphatase, S 104 [iU]/L (Normal) Range: 39-117 Bilirubin, Direct 0.13 mg/dL (Normal) Range: 0.00-0.40 Bilirubin, Total 0.5 mg/dL (Normal) Range: 0.0-1.2 Albumin, Serum 4.6 g/dL (Normal) Range: 3.5-4.8 Protein, Total, Serum 6.7 g/dL (Normal) Range: 6.0-8.5 0-Ffp-642690:18 LIPOPROTEIN, BLD, BY NMR Comments: PATIENT WAS FASTINGPERFORMED BY: BN [facility] Uajreeepbc5549 [facility] [id number] BY: CB [facility] Hpaboi4633 [facility] [id number] (27261) LP-IR Score 66 (Abnormal) Comments: INSULIN RESISTANCE MARKER <--Insulin Sensitive Insulin Resistant--> Percentile in Reference PopulationInsulin Resistance ScoreLP-IR Score Low 25th 50th 75th High <27 27 45 63 >63LP-IR Score is inaccurate if patient is non-fasting. .The LP-IR score is a laboratory developed [facility] that has beenassociated with insulin resistance [...] 1600 - 2000 Very High > 2000 60-Xnb-920865:25 CBC With Differential/Platelet Comments: PATIENT NOT FASTINGPERFORMED BY: LabTexas [facility] Ktivlp0005 [facility] [id number] Information: collect by nurse SRC: Immature Grans [...] 3.77-5.28 WBC 6.9 {x10E3/uL} (Normal) Range: 3.4-10.8 98-Eio-076681:25 Comp. Metabolic Panel (14) Comments: PATIENT NOT FASTINGPERFORMED BY: LabCoJFK Johnson Rehabilitation InstituteHwmvae1194 [facility] [id number] ALT (SGPT) 37 [iU]/L (Abnormal) Range: 0-32 [...] umol/L (Normal) Comments: PATIENT NOT FASTINGPERFORMED BY: [employer] Cjqerf4201 [facility]Replaced by [facility] [id number] 0:25 Plasma Range: 0.0-15.0 Microalb/Creat Ratio, Randm Ur Comments: PATIENT NOT FASTINGPERFORMED BY: [employer] Eqfaig2761Binder BiomedicalReplaced by [facility] [id number] Microalb/Creat Ratio <5.6 {mg/g_creat} (Normal) Range: 0.0-30.0 Microalbumin, Urine <3.0 ug/mL (Normal) Creatinine, Urine 53.7 mg/dL (Normal) : Urinalysis, Routine Comments: PATIENT NOT FASTINGPERFORMED BY: [facility] Institute [id number] Microscopic Examination MICNIP (Normal) Comments: Microscopic not indicated and not performed. Nitrite, Urine Negative (Normal) Urobilinogen,Semi-Qn 0.2 mg/dL (Normal) Range: 0.2-1.0 Bilirubin Negative (Normal) Occult Blood Negative (Normal) Ketones Negative (Normal) Glucose Negative (Normal) Protein Negative (Normal) WBC Esterase Negative (Normal) Appearance Clear (Normal) Urine-Color Yellow (Normal) pH 7.0 (Normal) Range: 5.0-7.5 Specific Eden 1.014 (Normal) Range: 1.005-1.030 : Urine Culture, Routine Comments: PATIENT NOT FASTINGPERFORMED BY: [employer] Hezzpo2458 [facility] [id number] Result 1 LESS (Normal) Comments: Culture shows less than 10,000 colony forming units of bacteria permilliliter of urine. This colony count is not generally consideredto be clinically significant. Urine Culture, Routine Final report (Normal) 44-Jjt-430582:59 URINE RASHAD CULTURE-IDENTIFICATN Comments: PATIENT NOT FASTINGPERFORMED BY: [facility]6370 [facility] [id number] Information: SRC: (68399) Antimicrobial MIHEAD (Normal) Comments: S = Susceptible; [...] mL (Abnormal) Urine Final report Culture,Comprehensive (Abnormal) 8-Qou-662331:01 URINE RASHAD CULTURE-IDENTIFICATN Comments: PATIENT NOT FASTINGPERFORMED BY: [place] 6317570 [facility] [id number] Information: SRC: (46192) Result 1 NG36 (Normal) Comments: No growth in 36 - 48 hours. Urine Culture,Comprehensive Final report (Normal) 19-Nov-20169:11 Urinalysis, Office (28797) UA - LEUKOCYTE ESTERASE Large (Normal) UA - NITRITE Positive (Normal) URINE UROBILINGN SILVESTRE TIMED 2 mg/dL (Normal) UA - PROTEIN 30 mg/dL (Normal) UA - PH 6 (Abnormal) UA - BLOOD Negative (Normal) UA - SPECIFIC GRAVITY 1.005 (Normal) UA - KETONES 15 mg/dL (Abnormal) UA - BILIRUBIN Large (Normal) UA - GLUCOSE 100 (Abnormal) 29-Exz-26129:16 CBC W/Diff, Automated Comments: [facility] [address]vpt[address] [place], [address] Absolute Lymph 1.78 {X10_3/ul} (Normal) Range: 0.83-4.51 [...] 4.2-5.4 WBC 5.7 K/mm3 (Normal) Range: 4.4-11.0 1-Rth-808928:00 HSV CULTURE SCREEN 494293 Comments: PERFORMED BY: [employer] [facility] [id number] Information: SRC:OFE (80979) HSV Culture Without Typing Negative (Normal) 59-Hxy-047808:58 URINE RASHAD CULTURE-IDENTIFICATN Comments: PATIENT NOT FASTINGPERFORMED BY: Plei ishBowl [facility] [id number] Information: SRC:ADWOA (95549) Antimicrobial MIHEAD (Normal) Comments: S = Susceptible; [...] mL (Abnormal) Urine Final report Culture,Comprehensive (Abnormal) 34-Vtp-26769:21 Urinalysis, Office (21595) UA - LEUKOCYTE ESTERASE Moderate (Normal) UA - NITRITE Negative (Normal) URINE UROBILINGN SILVESTRE TIMED 2 mg/dL (Normal) UA - PROTEIN 30 mg/dL (Normal) UA - PH 6.0 (Normal) UA - BLOOD Hemolyzed Large (Normal) UA - SPECIFIC GRAVITY 1.020 (Normal) UA - KETONES Negative mg/dL (Normal) UA - BILIRUBIN Negative (Normal) UA - GLUCOSE Negative (Normal) :32 HgA1C , Office (75209) HgA1C , Office 5.4 % (Normal) Range: 4.6 - 7.1 :36 T4, FREE (THYROXINE) (93035) Comments: PATIENT NOT FASTINGPERFORMED BY: PleiSierra Vista HospitalCtgedw6262 [facility] [id number] T4,Free(Direct) 1.34 ng/dL (Normal) Range: 0.82-1.77 19-Mxy-454684:36 TSH (98316) Comments: PATIENT NOT FASTINGPERFORMED BY: [employer] ishBowl [facility] [id number] TSH 2.400 {uIU/mL} (Normal) Range: 0.450-4.500 32-Rfz-737334:36 HEPATIC FUNCTION PANEL Comments: PATIENT NOT FASTINGPERFORMED BY: [employer] ishBowl [facility] [id number] (62591) ALT (SGPT) 59 [iU]/L (Abnormal) Range: 0-32 AST (SGOT) 35 [iU]/L (Normal) Range: 0-40 Alkaline Phosphatase, S 96 [iU]/L (Normal) Range: 39-117 Bilirubin, Direct 0.15 mg/dL (Normal) Range: 0.00-0.40 Comments: Please note reference interval change Bilirubin, Total 0.6 mg/dL (Normal) Range: 0.0-1.2 Albumin, Serum 4.4 g/dL (Normal) Range: 3.5-4.8 Protein, Total, Serum 6.5 g/dL (Normal) Range: 6.0-8.5 :36 Magnesium (58192) Comments: PATIENT NOT FASTINGPERFORMED BY: PleiJFK Johnson Rehabilitation InstituteMycehg1[address] [place] [address] [id number] Magnesium, Serum 2.0 mg/dL (Normal) Range: 1.6-2.3 :36 Metabolic Panel, Basic Comments: PATIENT NOT FASTINGPERFORMED BY: PleiJFK Johnson Rehabilitation InstituteDascnc60[address] [place] [address] [id number] (16092) Calcium, Serum 9.9 mg/dL (Normal) Range: 8.7-10.3 [...] three months (approximately); PATIENT WAS FASTINGPERFORMED BY: Crystal Clear VisionTyler Ville 281277 [facility] [id number] BY: Crystal Clear VisionAshley Ville 2594470 [facility] [id number] (94018) T4,Free(Direct) 1.23 ng/dL (Normal) Range: 0.82-1.77 :32 TSH (36347) Comments: in three months (approximately); PATIENT WAS FASTINGPERFORMED BY: [employer] LabCodev9k [address] [id number] BY: LabCoJFK Johnson Rehabilitation InstitutePpfafr2119 [facility] [id number] TSH 3.620 {uIU/mL} (Normal) Range: 0.450-4.500 :32 LIPOPROTEIN, BLD, BY NMR Comments: in three months (approximately); PATIENT WAS FASTINGPERFORMED BY: [employer] [facility] S[address]vnw[address] [id number] BY: LabStumpediaNnsmuu3355 [facility] [id number] (37394) LP-IR Score 77 (Abnormal) Comments: INSULIN RESISTANCE MARKER <--Insulin Sensitive Insulin Resistant--> Percentile in Reference PopulationInsulin Resistance ScoreLP-IR Score Low 25th 50th 75th High <27 27 45 63 >63LP-IR Score is inaccurate if patient is non-fasting. .The LP-IR score is a laboratory developed [facility] that has beenassociated with insulin resistance [...] 1600 - 2000 Very High > 2000 22-Dwc-786888:10 HEPATIC FUNCTION PANEL Comments: in three months (approximately); PATIENT NOT FASTINGPERFORMED BY: LabCoJFK Johnson Rehabilitation InstituteWikdnb1229 [facility] [id number] (72177) ALT (SGPT) 112 [iU]/L (Abnormal) Range: 0-32 [...] three months (approximately); PATIENT WAS FASTINGPERFORMED BY: GoInstant[address] [id number] BY: [employer] Millennial MediaAtrium Health [facility] West [id number] (12280) Homocyst(e)ine, Plasma 9.3 umol/L (Normal) Range: 0.0-15.0 63-Kaj-595197:10 HEPATITIS PANEL (60189) Comments: today do; PATIENT NOT FASTINGPERFORMED BY: Sai Medisoft70 Fashiolista [facility] HospitalMemberTender.comAtrium Health Union West [id number] Hep C Virus Ab 0.2 {s/co_ratio} (Normal) Range: 0.0-0.9 Comments: Negative: < 0.8 Indeterminate: 0.8 - 0.9 Positive: > 0.9 . The CDC recommends that a positive HCV antibody result be followed up with a HCV Nucleic Acid Amplification test (317014). Hep B Core Ab, IgM Negative (Normal) HBsAg Screen Negative (Normal) Hep A Ab, IgM Negative (Normal) :32 HEPATIC FUNCTION PANEL Comments: send copy to Dr. dejesus. do today; PATIENT WAS FASTINGPERFORMED BY: GoInstant[address] [id number] BY: [employer] Oaypjr3945 [facility] [id number]; apt today DB (07962) ALT (SGPT) 43 [iU]/L (Abnormal) Range: 0-32 AST (SGOT) 33 [iU]/L (Normal) Range: 0-40 Alkaline Phosphatase, S 98 [iU]/L (Normal) Range: 39-117 Bilirubin, Direct 0.14 mg/dL (Normal) Range: 0.00-0.40 Bilirubin, Total 0.5 mg/dL (Normal) Range: 0.0-1.2 Albumin, Serum 4.2 g/dL (Normal) Range: 3.5-4.8 Protein, Total, Serum 6.3 g/dL (Normal) Range: 6.0-8.5 29-Paa-532879:48 HgA1C , Office (38236) HgA1C , Office 5.7 % (Normal) Range: 4.6 - 7.1 05-Ebx-275203:34 FERRITIN (77937) Comments: PATIENT NOT FASTINGPERFORMED BY: [employer] ZeniMaxReplaced by [facility] [id number] Ferritin, Serum 246 ng/mL (Abnormal) Range: 15-150 05-Qvq-357639:34 CERULOPLASMIN (76605) Comments: PATIENT NOT FASTINGPERFORMED BY: WeHausAtrium Health Union West [id number] Ceruloplasmin 24.7 mg/dL (Normal) Range: 19.0-39.0 :34 ASM (ANTI SMOOTH MUSCLE Comments: PATIENT NOT FASTINGPERFORMED BY: [employer] Xavier True Link FinancialReplaced by [facility] [id number] ANTIBODY) (23199) Actin (Smooth Muscle) Antibody 7 {Units} (Normal) Range: 0-19 Comments: Negative 0 - 19 Weak positive 20 - 30 Moderate to strong positive >30 . Actin Antibodies are found in 52-85% of patients with autoimmune hepatitis or chronic active hepatitis and in 22% of patients with primary biliary cirrhosis. 10-Xxj-613619:34 ANTI-LIVER/KIDNEY MICROSOMAL Comments: PATIENT NOT FASTINGPERFORMED BY: WeHausAt[facility] [id number] ANTIBODY (49934) Thyroid Peroxidase (TPO) Ab 9 {IU/mL} (Normal) Range: 0-34 53-Qhd-614898:34 JESS (ANTINUCLEAR ANTIBODY) Comments: PATIENT NOT FASTINGPERFORMED BY: Glookoox Ventrus BiosciencesAt[facility] Health [facility] [id number] (32492) JESS Direct Negative (Normal) :33 Microscopic Examination Comments: PATIENT WAS FASTINGPERFORMED BY: WeHausAt[facility] [id number] Bacteria Few (Normal) Mucus Threads Present (Normal) Epithelial Cells (non renal) 0-10 {/hpf} (Normal) Range: 0 - 10 RBC 0-2 {/hpf} (Normal) Range: 0 - 2 WBC 0-5 {/hpf} (Normal) Range: 0 - 5 09-Rqo-666976:51 Rapid Flu (93796 x 2) Influenza A Ag neg a and b (Normal) 2-Sac-485160:20 URINE RASHAD CULTURE-IDENTIFICATN Comments: PATIENT NOT FASTINGPERFORMED BY: [facility] Uwznum6810 [facility] [id number] Information: [id number] (77424) Antimicrobial MIHEAD (Normal) Comments: S = Susceptible; [...] Final report Culture,Comprehensive (Abnormal) :18 Urinalysis, Office (66206) UA - GLUCOSE Negative (Normal) UA - BILIRUBIN Negative (Normal) UA - KETONES Negative mg/dL (Normal) UA - SPECIFIC GRAVITY 1.010 (Normal) UA - BLOOD Hemolyzed Trace (Normal) UA - PH 5 (Abnormal) UA - PROTEIN Negative mg/dL (Normal) URINE UROBILINGN SILVESTRE TIMED Normal mg/dL (Normal) UA - NITRITE Positive (Normal) UA - LEUKOCYTE ESTERASE Trace (Normal) :33 URINALYSIS, W/ MICRO (41242) Comments: PATIENT WAS FASTINGPERFORMED BY: [facility] Ctinyk8770 [facility] [id number] Microscopic Examination See below: (Normal) Comments: Microscopic was indicated and was performed. Nitrite, Urine Negative (Normal) Urobilinogen,Semi-Qn 0.2 mg/dL (Normal) Range: 0.2-1.0 Bilirubin Negative (Normal) Occult Blood Negative (Normal) Ketones Negative (Normal) Glucose Negative (Normal) Protein Negative (Normal) WBC Esterase 1+ (Abnormal) Appearance Clear (Normal) Urine-Color Yellow (Normal) pH 7.0 (Normal) Range: 5.0-7.5 Specific Eden 1.016 (Normal) Range: 1.005-1.030 :33 METABOLIC PANEL, COMPREHENSIVE Comments: PATIENT WAS FASTINGPERFORMED BY: [facility]Mym[facility] Gladwin6370 [facility] [id number] (78092) ALT (SGPT) 51 [iU]/L (Abnormal) Range: 0-32 [...] mg/dL (Abnormal) Range: 65-99 :33 LIPID PANEL (92906) Comments: PATIENT WAS FASTINGPERFORMED BY: PleiJFK Johnson Rehabilitation InstituteVrrohc5561 [facility] [id number] LDL/HDL Ratio 3.8 {ratio_units} (Abnormal) Range: 0.0-3.2 [...] Cholesterol, Total 208 mg/dL (Abnormal) Range: 100-199 18-Mrb-63165:33 CBC with auto diff Comments: PATIENT WAS FASTINGPERFORMED BY: PleiJFK Johnson Rehabilitation InstituteTbspdt7882 [facility] [id number] Information: [id number]; [address] (11359) Immature Grans (Abs) 0.0 {x10E3/uL} (Normal) Range: [...] (Normal) Range: 3.4-10.8 :48 HgA1C , Office (29665) HgA1C , Office 6.3 % (Normal) Range: 4.6 - 7.1 :59 METABOLIC PANEL, COMPREHENSIVE Comments: PATIENT WAS FASTINGPERFORMED BY: LabCoJFK Johnson Rehabilitation InstituteEhvfvw5382 [facility] [id number] (86406) ALT (SGPT) 44 [iU]/L (Abnormal) Range: 0-32 [...] mg/dL (Abnormal) Range: 65-99 :59 LIPID PANEL (63437) Comments: PATIENT WAS FASTINGPERFORMED BY: [facility]6370 [facility] [id number] LDL/HDL Ratio 4.1 {ratio_units} (Abnormal) Range: 0.0-3.2 [...] auto diff Comments: PATIENT WAS FASTINGPERFORMED BY: LabCoJFK Johnson Rehabilitation InstituteLimnxk0588 [facility] [id number] Information: [id number] (65465) Immature Grans (Abs) 0.0 {x10E3/uL} (Normal) Range: [...] {x10E3/uL} (Normal) Range: 3.4-10.8 :55 Urinalysis, Office (25142) UA - LEUKOCYTE ESTERASE Small (Normal) UA - NITRITE Negative (Normal) URINE UROBILINGN SILVESTRE TIMED Normal mg/dL (Normal) UA - PROTEIN Negative mg/dL (Normal) UA - PH 7 (Normal) UA - BLOOD Negative (Normal) UA - SPECIFIC GRAVITY 1.010 (Normal) UA - KETONES Negative mg/dL (Normal) UA - BILIRUBIN Negative (Normal) UA - GLUCOSE Negative (Normal) :45 CBC W/Diff, Automated Comments: Test performed at:[facility] A[address] [place], [place] [address] Absolute Lymph 2.36 {X10_3/ul} (Normal) Range: 0.83-4.51 [...] 4.2-5.4 WBC 13.0 K/mm3 (Abnormal) Range: 4.4-11.0 75-Usf-41399:45 Comprehensive Metabolic Profil Comments: Test performed at:[facility] G[address]hmwyn[address] [place] [address] GAP 5 (Normal) Range: 5-15 CO2 27.0 [...] Comments: Please note revised CREATININE reference range umtltnyab31/22/2015. BUN 15 mg/dL (Normal) Range: 7-18 GLU 134 mg/dL (Abnormal) Range: 70-110 Comments: Fasting Glucose result greater than or equal to 126 mg/dLsuggests DIABETES MELLITUS per A.D.A. criteria. :45 Lipase Comments: Test performed at:[facility] [address] [facility] [place] [address] LIPASE 215 U/L (Normal) Range: 73-393 :32 Urinalysis, Complete Comments: Order Date: 12/16/14How was Urine Obtained? CLEAN CATCHTest performed at:[facility] [address] [place] [address] MUCUS, URINE 0 SEEN {/hpf} [...] Comprehensive Comments: PATIENT NOT FASTINGPERFORMED BY: [facility] Edpydp0450 [place] [id number] (05385) ALT (SGPT) 44 [iU]/L (Abnormal) Range: 0-32 [...] Glucose, Serum 106 mg/dL (Abnormal) Range: 65-99 68-Aib-36741:31 CBC, Platelets & Auto Diff Comments: PATIENT NOT FASTINGPERFORMED BY: LabCoJFK Johnson Rehabilitation InstituteTmgsqr0661 [facility] [id number] Information: [id number] (83339) Immature Grans (Abs) 0.0 {x10E3/uL} (Normal) Range: [...] {x10E3/uL} (Normal) Range: 3.4-10.8 :05 Rapid Flu (38481 x 2) Comments: pos A Influenza A Ag positive A (Normal) :55 IAGUK-WTCOUMLHQFZ-CDCOA (09683) Comments: today; PATIENT NOT FASTINGPERFORMED BY: PleiJFK Johnson Rehabilitation InstituteIxztew0185 [facility] [id number] AFP, Serum, Tumor Marker 5.4 ng/mL (Normal) Range: 0.0-8.3 Comments: [employer] ECLIA methodology :55 HEPATITIS PANEL (00894) Comments: today; PATIENT NOT FASTINGPERFORMED BY: [facility] VisionMymichigan Medical Center Gladwin6370 [facility] [id number] Information: [id number] Hep C Virus Ab <0.1 {s/co_ratio} (Normal) Range: 0.0-0.9 Comments: Negative: < 0.8 Indeterminate: 0.8 - 0.9 Positive: > 0.9 . In order to reduce the incidence of a false positive result, the CDC recommends that all s/co ratios between 1.0 and 10.9 be confirmed by a more specific supplemental or PCR testing. [facility] offers HCV Ab w/Reflex to Verification test #[id number]. Hep B Core Ab, IgM Negative (Normal) HBsAg Screen Negative (Normal) Hep A Ab, IgM Negative (Normal) :21 HEPATIC FUNCTION PANEL Comments: repeat in 6 weeks around ; PATIENT NOT FASTINGPERFORMED BY: [facility] [place] [address] [id number] Information: [id number] (98524) ALT (SGPT) 38 [iU]/L (Abnormal) Range: 0-32 AST (SGOT) 28 [iU]/L (Normal) Range: 0-40 Alkaline Phosphatase, S 124 [iU]/L (Abnormal) Range: 39-117 Bilirubin, Direct 0.15 mg/dL (Normal) Range: 0.00-0.40 Bilirubin, Total 0.6 mg/dL (Normal) Range: 0.0-1.2 Albumin, Serum 4.2 g/dL (Normal) Range: 3.5-4.8 Protein, Total, Serum 6.5 g/dL (Normal) Range: 6.0-8.5 :09 Microscopic Examination Comments: PATIENT WAS FASTINGPERFORMED BY: [facility]6370 [facility] [id number] Bacteria Few (Normal) Epithelial Cells (non renal) 0-10 {/hpf} (Normal) Range: 0 - 10 RBC 0-2 {/hpf} (Normal) Range: 0 - 2 WBC 11-30 {/hpf} (Abnormal) Range: 0 - 5 28-Msc-749978:50 HgA1C , Office (54889) HgA1C , Office 5.8 % (Normal) Range: 4.6 - 7.1 :09 URINALYSIS, W/ MICRO (55530) Comments: PATIENT WAS FASTINGPERFORMED BY: [place] 6317570 [facility] [id number] Microscopic Examination See below: (Normal) Comments: Microscopic was indicated and was performed. Nitrite, Urine Negative (Normal) Urobilinogen,Semi-Qn 0.2 mg/dL (Normal) Range: 0.0-1.9 Bilirubin Negative (Normal) Occult Blood Negative (Normal) Ketones Negative (Normal) Glucose Negative (Normal) Protein Negative (Normal) WBC Esterase 3+ (Abnormal) Appearance Clear (Normal) Urine-Color Yellow (Normal) pH 7.0 (Normal) Range: 5.0-7.5 Specific Eden 1.014 (Normal) Range: 1.005-1.030 :09 METABOLIC PANEL, COMPREHENSIVE Comments: PATIENT WAS FASTINGPERFORMED BY: LabMymich[facility] Gladwin6370 [facility] [id number] (13428) ALT (SGPT) 41 [iU]/L (Abnormal) Range: 0-32 [...] of serum to cells. :09 LIPID PANEL (43957) Comments: PATIENT WAS FASTINGPERFORMED BY: PleiJFK Johnson Rehabilitation InstituteAtsnyk4100 [facility] [id number] VLDL Cholesterol Kelsi VLDLCH mg/dL (Normal) Range: [...] Cholesterol, Total 233 mg/dL (Abnormal) Range: 100-199 70-Epv-194936:09 CBC W/AUTO DIFF WBC Comments: PATIENT WAS FASTINGPERFORMED BY: [employer]6370 [facility] [id number] Information: [id number] (04894) Immature Grans (Abs) 0.0 {x10E3/uL} (Normal) Range: [...] CREATININE RATIO Comments: PATIENT WAS FASTINGPERFORMED BY: [employer]6370 [facility] HospitalMemberTender.comAtrium Health [facility] [id number] (74941) AND (67034) Microalb/Creat Ratio 2.7 {mg/g_creat} (Normal) Range: 0.0-30.0 Microalbumin, Urine 1.5 ug/mL (Normal) Range: 0.0-17.0 Creatinine, Urine 54.8 mg/dL (Normal) Range: 15.0-278.0 :39 METABOLIC PANEL, COMPREHENSIVE Comments: PATIENT WAS FASTINGPERFORMED BY: Sai [employer]70 Pyng MedicalAtrium Health [facility] [id number] (76128) ALT (SGPT) 41 [iU]/L (Abnormal) Range: 0-32 [...] mg/dL (Abnormal) Range: 65-99 :39 LIPID PANEL (29017) Comments: PATIENT WAS FASTINGPERFORMED BY: [employer]70 [facility] [id number] VLDL Cholesterol Kelsi VLDLCH mg/dL (Normal) Range: [...] MANUAL DIFF Comments: PATIENT WAS FASTINGPERFORMED BY: [employer]6370 [facility] [id number] Information: [id number] (35725) Immature Grans (Abs) 0.0 {x10E3/uL} (Normal) Range: [...] in 8 weeks; PATIENT WAS FASTINGPERFORMED BY: [place] [employer]70 [employer]Replaced by [facility] [id number] (50619) Bilirubin, Direct 0.12 mg/dL (Normal) Range: 0.00-0.40 :35 Blood Glucose , Office (88839) Blood Glucose , Office 161 (Normal) :35 HgA1C , Office (51458) HgA1C , Office 5.6 % (Normal) Range: 4.6 - 7.1 :36 TSH (37842) Comments: Forward to Dr Avery Cobb, [place] [phone]; PATIENT WAS FASTINGPERFORMED BY: LabZipmentsrp Hmajuo5889 [facility] Hospitalin [place] [id number] TSH 2.620 {uIU/mL} (Normal) Range: 0.450-4.500 :36 CBC with manual diff Comments: Forward to Dr Avery Cbob, [place] [phone]; PATIENT WAS FASTINGPERFORMED BY: [facility] Orypcq0939 [facility] [id number] Informat ion: [id number] CC:[id number] (62614) Immature Grans (Abs) 0.0 {x10E3/uL} (Normal) Range: [...] Comprehensive Comments: Forward to Dr Avery Cobb, [place], [phone]; PATIENT WAS FASTINGPERFORMED BY: [facility] Ynxqcu1851 [facility] [id number] (14196) ALT (SGPT) 33 [iU]/L (Abnormal) Range: 0-32 [...] Glucose, Serum 119 mg/dL (Abnormal) Range: 65-99 9-Cdb-033211:29 URINE RASHAD CULTURE-SILVESTRE COL Comments: PATIENT NOT FASTINGPERFORMED BY: [facility] Dvtbyy1423 [facility] [id number] Information: SRC: [id number] COUNT (09552) Result 1 ENTEAE (Normal) Comments: Enterobacter aerogenes1,000 Colonies/mL S = Susceptible; I = Intermediate; R = Resistant P = Positive; N = Negative MICS are expressed in micrograms per mL A ntibiotic RSLT#1 RSLT#2 RSLT#3 RSLT#4Amoxicillin/Clavulanic Acid RCefazolin RCefepime SCeftriaxone SCefuroxime SCephalothin RCiprofloxacin SErtapenem SGentamicin SImipenem SLevofloxacin SNitrofurantoin RPiperacillin STetracycline STobramycin STrimethoprim/Sulfa S Urine Final report (Normal) Culture,Comprehensiv e 1-Kjn-843764:14 Urinalysis, Office (88771) UA - LEUKOCYTE ESTERASE Large (Normal) UA - NITRITE Negative (Normal) URINE UROBILINGN SILVESTRE TIMED Normal mg/dL (Normal) UA - PROTEIN Negative mg/dL (Normal) UA - PH 7 (Normal) UA - BLOOD Hemolyzed Small (Normal) UA - SPECIFIC GRAVITY 1.015 (Normal) UA - KETONES Negative mg/dL (Normal) UA - BILIRUBIN Negative (Normal) UA - GLUCOSE Negative (Normal) 79-Ckn-645025:22 URINE RASHAD CULTURE-SILVESTRE COL Comments: PATIENT NOT FASTINGPERFORMED BY: [facility] Ezafrt0076 [facility] [id number] Information: SRC:UR [id number] COUNT (51188) Antimicrobial MIHEAD (Normal) Comments: S = Susceptible; [...] mL (Normal) Urine Final report Culture,Comprehensive (Normal) 23-Edy-253466:24 Urinalysis, Office (88836) UA - BILIRUBIN Negative (Normal) UA - BLOOD Negative (Normal) UA - GLUCOSE Negative (Normal) UA - KETONES Negative mg/dL (Normal) UA - LEUKOCYTE ESTERASE Trace (Normal) UA - NITRITE Negative (Normal) UA - PH 7.0 (Normal) UA - PROTEIN Negative mg/dL (Normal) UA - SPECIFIC GRAVITY 1.015 (Normal) URINE UROBILINGN SILVESTRE TIMED 2 mg/dL (Normal) 00-Ddh-72834:28 Metabolic Panel, Basic Comments: PATIENT NOT FASTINGPERFORMED BY: LabCoJennifer [place] 2493470 [facility] [id number] Information: [id number] (79300) Calcium, Serum 10.1 mg/dL (Normal) Range: 8.6-10.2 [...] Glucose, Serum 94 mg/dL (Normal) Range: 65-99 59-Utf-71074:57 MAGNESIUM (97864) Comments: PATIENT NOT FASTINGPERFORMED BY: LabCoJennifer [place] 2493470 [facility] [id number] Magnesium, Serum 1.9 mg/dL (Normal) Range: 1.6-2.6 47-Ktu-53217:57 Metabolic Panel, Basic Comments: PATIENT NOT FASTINGPERFORMED BY: LabCoJennifer [place] 2493470 [facility] [id number] Information: ADD [id number] AND DRAW FEE 99 6360 (72870) Calcium, Serum 9.9 mg/dL (Normal) Range: 8.6-10.2 [...] function Panel Comments: PATIENT NOT FASTINGPERFORMED BY: [employer] Skartg0243 [facility] [id number] Information: [id number] (64905) Albumin, Serum 4.1 g/dL (Normal) Range: 3.5-4.8 [...] 101 mg/dL (Abnormal) Range: 65-99 :12 Magnesium (60692) Comments: PATIENT NOT FASTINGPERFORMED BY: PleiJFK Johnson Rehabilitation InstituteYwmqfk7947 [facility] [id number] Magnesium, Serum 1.7 mg/dL (Normal) Range: 1.6-2.6 67-Snc-297140:08 KNEE 4 OR MORE VIEWS Radiology See [...] Alvares M.D.December 05, 2012 at 11:41:24 AM [id number] Signed GP/GP If you are the referring physician and would like to consult with th eradiologist who provided this interpretation, please contact Maurilio Miller at [phone]. If this radiologist is unavailable, youwill be directed to another radiologist to assist. If you ar e a patient with a question regarding this report, pleasecontactyour referring physician directly. Professional Interpretation Provided By: [employer], Phone , These docum ents contain legally [...] 12/05/12 1459 Sign by: Archie Alvares MD 27-Mpy-30783:20 RENAL FUNCTION PANEL Comments: PATIENT NOT FASTINGPERFORMED BY: [facility]6370 [facility] [id number] Information: [id number] (08844) Albumin, Serum 4.5 g/dL (Normal) Range: 3.5-4.8 [...] Glucose, Serum 131 mg/dL (Abnormal) Range: 65-99 71-Keg-733961:58 Nuclear Stress Test Radiology Report See Note [...] 11/30/12 1458 by THIERRY MS,HOLLYSign by Lonnie NUNEZ,[place] on 12/02/12 1640 Sign by: Lonnie NUNEZ,Brennan 99-Vbq-127704:24 Metabolic Panel, Basic Comments: PATIENT NOT FASTINGPERFORMED BY: [employer] [place] [id number] Information: [id number] (33094) Calcium, Serum 9.6 mg/dL (Normal) Range: 8.6-10.2 [...] Glucose, Serum 96 mg/dL (Normal) Range: 65-99 02-Jxg-424808:24 MAGNESIUM (28461) Comments: PATIENT NOT FASTINGPERFORMED BY: [employer]6370 Pyng Medicalmyhomemove [place] [id number] Magnesium, Serum 2.1 mg/dL (Normal) Range: 1.6-2.6 [...] <0.05 NEGATIVE0.06 - 0.59 AT RISK OF MN> OR = 0.60 SUGGEST MN 7-Fqx-538981:23 TSH 1.27 {uIU/mL} (Normal) Range: 0.358-3.74 94-Cmz-682446:58 BILAT SCRN DIGITAL & CAD Radiology Report [...] Alvares M.D.June 08, 2012 at 2:30:29 PM [id number] Signed GP/GP If you are the referring physician and would like to consult with theradiologist who pro vided this interpretation, please contact Maurilio Miller at [phone]. If this radiologist is unavailable, youwill be directed to another radiologist to assist. If you are a patient with a q uestion regarding this report, pleasecontactyour referring physician directly. Professional Interpretation Provided By: [employer], Phone , These documents contain legally protected [...] 06/08/12 1437 Sign by: Archie Alvares MD 71-Ovn-03385:57 LIPID PANEL (34079) Comments: PATIENT WAS FASTINGPERFORMED BY: LabCoSierra Vista HospitalDykpfg2525 [facility] [id number] Information: [id number] VLDL Cholesterol Kelsi VLDLCH mg/dL (Normal) Range: [...] Cholesterol, Total 227 mg/dL (Abnormal) Range: 100-199 68-Moo-689579:05 WRIST,MIN 3 VIEWS Radiology Report See Note [...] Signed DS/NATALIE Profession al Interpretation Provided By: [facility] [employer], , To consult with a radiologist regarding this report, please call our [id number] line @ [phone] Dictated on 09/29/11 1133 by Janette Sykes DOscribed on 10/01/11 1001 by ITS IMPORTSign by Moses Sykes DO on 10/01/11 1002 Sign by: Moses Sykes DO 20-Ewi-294436:47 MICROALBUMIN: CREATININE RATIO Comments: PATIENT WAS FASTINGPERFORMED BY: LabCoJFK Johnson Rehabilitation InstituteFbiivy9691 [facility] [id number] (37521) AND (33563) Microalb/Creat Ratio 2.6 {mg/g_creat} (Normal) Range: 0.0-30.0 Microalbumin, Urine 3.0 ug/mL (Normal) Range: 0.0-17.0 Creatinine, Urine 115.1 mg/dL (Normal) Range: 15.0-278.0 :47 METABOLIC PANEL, COMPREHENSIVE Comments: PATIENT WAS FASTINGPERFORMED BY: [place] [employer]70 Py[facility] MedicalAtrium Health [facility] West [id number] (54381) ALT (SGPT) 46 [iU]/L (Abnormal) Range: 0-40 [...] mg/dL (Abnormal) Range: 65-99 :47 LIPID PANEL (99124) Comments: PATIENT WAS FASTINGPERFORMED BY: [employer]6370 Pyng MedicalAtrium Health [facility] [id number] VLDL Cholesterol Kelsi VLDLCH mg/dL (Normal) Range: [...] Cholesterol, Total 195 mg/dL (Normal) Range: 100-199 25-Hpw-098284:47 CBC WITH MANUAL DIFF Comments: PATIENT WAS FASTINGPERFORMED BY: LabCoJFK Johnson Rehabilitation InstituteFytzbo4470 [facility] [id number] Information: [id number] (78510) Immature Grans (Abs) 0.0 {x10E3/uL} (Normal) Range: [...] change WBC 5.6 {x10E3/uL} (Normal) Range: 4.0-10.5 59-Gol-782193:01 BILAT SCRN DIGITAL & CAD Radiology Report [...] radiologist regarding this report, please call our [id number] line @ Dictated on 05/19/11 1229 by Leonides Alvares MDscribed on 05/19/11 1407 by ITS IMPORTSign by Archie Alvares MD on 05/19/11 1408 Sign by: Archie Alvares MD 74-Oyl-456110:11 LIPID PANEL (73329) Comments: now and in six months (approximately); PERFORMED BY: [employer]6370 [facility] [id number] HDL Cholesterol 32 mg/dL (Abnormal) Comments: According [...] Comments: in six months (approximately); PERFORMED BY: [employer]6370 [facility] [id number] (68292) ALT (SGPT) 57 [iU]/L (Abnormal) Range: 0-40 [...] Glucose, Serum 102 mg/dL (Abnormal) Range: 65-99 4-Fut-333087:51 CHEST, PA AND LATERAL Radiology Report See [...] on 07/21/101935 Sign by: Archie Alvares MD 7-Rkv-878105:14 Urinalysis, Office (15485) UA - BILIRUBIN Negative (Normal) UA - [...] <=16 S TRIMETHOPRIM/SULFAMETHOXAZO $ >=320 R EB-VCA AuU91443 < 0.2 {AI} Range: 0.0-0.8 :48 (Normal) Comments: Negative <0.9 Equivocal 0.9 - 1.0 Positive >1.0Performed at: [facility] Lab[address] [id number] Director: Mara Wilson MD, Phone: [phone] :[phone] ESR SED RATE 113 mm/h (Abnormal) Range: 0-30 :48 HEP-ABC [id number] HB CORE [id number] SeeNote (Normal) Comments: Result: Negative HEBSAB 6395 [...] COL Comments: PATIENT NOT FASTINGPERFORMED BY: [facility] Ggeafj1534 [facility] [id number] Information: SRC: [id number] COUNT (60179) Antimicrobial MIHEAD (Normal) Comments: S = Susceptible; [...] 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 Despite apparent in vitro susceptibility topenicillins and cephalospor (Normal) ins, this organism may be clinicallyresistant to therapy with these agents and, per the CLSI (formerlyDECLS), we have changed their results to indicate this. Urine Final report (Normal) Culture,Comprehensive 2-Okq-278764:44 Urinalysis, Office (94554) UA - BILIRUBIN Negative (Normal) UA - [...] on 05/22/10 1538 Sign by: JOVANY ARAMBULA 50-Rvy-781898:24 Influenza A, H1N1, RT PCR Comments: PERFORMED BY: SHANNON [employer] [id number] BY: ILIR LabCoJFK Johnson Rehabilitation InstituteXsicjr7587 [facility] [id number] Information: SRC:NL Subtype Novel H1N1 by Negative (Normal) PCR Type Influenza A by Negative (Normal) PCR Viral FLUABN (Normal) Comments: PERFORMED BY: [facility] CenterStsbnvzyzt2326 [facility] [id number] BY: [facility]6370 [facility] [id number] Culture,Rapid,Influenz Comments: Negative:No Influenza A or B detected. a 66-Gbs-157563:25 Influenza A Ag (47272) Influenza A Ag negative (Normal) 94-Iah-328334:55 Urinalysis, Office (32828) UA - BILIRUBIN Negative (Normal) UA - BLOOD Negative (Normal) UA - GLUCOSE Trace (Normal) Comments: 100mg UA - KETONES Negative mg/dL (Normal) UA - LEUKOCYTE ESTERASE Small (Normal) UA - NITRITE Negative (Normal) UA - PH 7.0 (Normal) UA - PROTEIN Negative mg/dL (Normal) UA - SPECIFIC GRAVITY 1.015 (Normal) URINE UROBILINGN SILVESTRE TIMED 2 mg/dL (Normal) 5-Wvz-440624:04 CBC with manual diff Comments: PATIENT NOT FASTINGPERFORMED BY: PleiJenn[place] 2493470 [facility] [id number] Information: [id number] (57326) Immature Grans (Abs) 0.0 {x10E3/uL} (Normal) Range: [...] 3.80-5.10 WBC 6.4 {x10E3/uL} (Normal) Range: 4.0-10.5 9-Bqc-836508:04 Metabolic Panel, Comprehensive Comments: PATIENT NOT FASTINGPERFORMED BY: LabCoJFK Johnson Rehabilitation InstitutePihirr3652 [facility] [id number] (93909) ALT (SGPT) 78 [iU]/L (Abnormal) Range: 0-40 [...] Glucose, Serum 105 mg/dL (Abnormal) Range: 65-99 79-Cxc-158741:07 BRAIN/HEAD WITHOUT CONTRAST Radiology Report See Note [...] on 03/11/10 0859 Sign by: JOVANY ARAMBULA 22-Odf-01137:00 CHEST, PA AND LATERAL Radiology Report See [...] STYLES on 03/12/10637 Sign by: BERTO STYLES 63-Weq-24525:00 RIBS UNIL 2V NO CXR Radiology Report [...] STYLES on 03/12/10637 Sign by: BERTO STYLES 3-Zhc-834592:04 Lower Respiratory Culture Comments: PERFORMED BY: [facility] Qlzbsb8395 [facility] [id number] Information: SRC:SP Result 1 RRF (Normal) Comments: Routine respiratory ermelinda Lower Respiratory Culture Final report (Normal) 64-Muz-360193:29 ETH TISS P-ETH (Normal) Comments: OPERATIONSeptoplasty, bilateral [...] / SJ: 09/10/09 TC:3REPORT SIGNED: SCOOTER SNYDER 09/12/0929-Aug-200954-Ebk-377108:05 BMP BUN/CRE 20.0 {RATIO} (Normal) Range: 10-20 [...] 126 mg/dLsuggests DIABETES MELLITUS per A.D.A. criteria. 30-Mou-193342:05 CBC MPV 7.1 fL (Normal) Range: 6.5-12.0 HCT 39.7 % (Normal) Range: 37-47 HGB 14.0 g/dL (Normal) Range: 12.0-16.0 MCH 31.3 pg (Normal) Range: 27.0-32.0 MCHC 35.3 g/dL (Normal) Range: 32-36 MCV 88.6 fL (Normal) Range: 81-99 PLT 232 K/mm3 (Normal) Range: 150-450 RBC 4.48 {M/mm3} (Normal) Range: 4.2-5.4 RDW 13.8 % (Normal) Range: 11.6-14.6 WBC 8.1 K/mm3 (Normal) Range: 4.4-11.0 1-Rzc-419166:33 MICROALBUMIN: CREATININE RATIO Comments: PATIENT WAS FASTINGPERFORMED BY: LabCoJFK Johnson Rehabilitation InstituteFctrag6988 [facility] [id number] ([id number]) AND ([id number]) Microalb/Creat Ratio 3.2 {mg/g_creat} (Normal) Range: 0.0-30.0 Creatinine, Urine 37.1 mg/dL (Normal) Range: 15.0-278.0 Microalbumin, Urine 1.2 ug/mL (Normal) Range: 0.0-17.0 1-Ytb-491118:33 METABOLIC PANEL, COMPREHENSIVE Comments: PATIENT WAS FASTINGPERFORMED BY: LabCoJFK Johnson Rehabilitation InstituteUlqggf7830 [facility] [id number] ([id number]) ALT (SGPT) 33 [iU]/L (Normal) Range: 0-40 [...] mg/dL (Abnormal) Range: 65-99 :33 LIPID PANEL (85658) Comments: PATIENT WAS FASTINGPERFORMED BY: [facility] Agjowr0749 [facility] [id number] LDL Cholesterol Calc 142 mg/dL (Abnormal) Range: 0-99 LDL/HDL Ratio 3.5 {ratio_units} (Abnormal) Range: 0.0-3.2 VLDL Cholesterol Kelsi 57 mg/dL (Abnormal) Range: 5-40 Cholesterol, Total 240 mg/dL (Abnormal) Range: 100-199 HDL Cholesterol 41 mg/dL (Normal) Comments: According to ATP-III Guidelines, HDL-C >59 mg/dL is considered anegative risk factor for CHD. Triglycerides 284 mg/dL (Abnormal) Range: 0-149 8-Fgt-795837:33 CBC WITH MANUAL DIFF Comments: PATIENT WAS FASTINGPERFORMED BY: [facility]6370 [facility] [id number] Information: [id number] ([id number]) Baso (Absolute) 0.0 {x10E3/uL} (Normal) Range: 0.0-0.2 [...] Report See Note (Normal) Comments: Exam Number: [id number] CT SCAN OF THE THORAX Multiple axial [...] left upper lobe. Reported By: ARCHIE ALVARES 02-Xoz-935446:05 PPD ([id number]) Comments: Lot #[id number]/Site-left forearmDose0.1 mlgiven by:[facility]; negative 90-Elt-02276:18 TSH ([id number]) Comments: PATIENT WAS FASTINGPERFORMED BY: [facility] Etcdas1558 [facility] [id number] TSH 1.234 {uIU/mL} (Normal) Range: 0.450-4.500 79-Gwn-13966:18 METABOLIC PANEL, COMPREHENSIVE Comments: PATIENT WAS FASTINGPERFORMED BY: [facility] Kvevor9087 [facility] [id number] ([id number]) A/G Ratio 1.4 (Normal) Range: 1.1-2.5 Albumin, [...] Serum 117 mg/dL (Abnormal) Range: 65-99 If -Iraqi >59 mL/min/1.73 Comments: Note: Persistent reduction for [...] Sodium, Serum 141 mmol/L (Normal) Range: 135-145 21-Buf-72593:18 LIPID PANEL (49122) Comments: PATIENT WAS FASTINGPERFORMED BY: IL[facility] [employer] [facility] [id number] Cholesterol, Total 206 mg/dL (Abnormal) Range: 100-199 [...] Cholesterol Kelsi 55 mg/dL (Abnormal) Range: 5-40 51-Aos-07950:18 CBC WITH MANUAL DIFF ([id number]) Comments: PATIENT WAS FASTINGClinical Information: ADD DRAW FEE [id number] ADD J 36331 PERFORMED BY: MedcurrentDublin [place] [id number] Baso (Absolute) 0.0 {x10E3/uL} (Normal) Range: 0.0-0.2 [...] 3+ ORGANISM 1: GROUP A BETA STREPTOCOCCUS 06-Mhk-891028:26 MRSA DNA BY PCR MRSA RESULT SeeNote (Normal) Comments: Result: Negative 6-Tmr-053848:25 COMP METABOLIC Comments: COMMENTS: NEW ADMIT A/G [...] T PROT 7.7 g/dL (Normal) Range: 6.4-8.2 19-Pcf-034424:10 MAMM, BILAT SCRN DIGITAL & CAD Radiology Report See Note (Normal) Comments: Exam Number: [id number] MAMMOGRAPHY, BILATERAL SCREENING DIGITAL AND CAD HISTORYRoutine [...] mammograms werealso examined with computer-aided detection software (ImageHubspan, Tempolib.). Reported By: JOVANY ARAMBULA M.D. 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 Indication: Afib Knee pain, right : [...] Indication: Well woman exam Planned Observations Ferritin ([id number])Indication: Elevated LFTs On: :05 Request HEPATIC FUNCTION PANEL (15285)Indication: Elevated LFTs On: :04 Request ELZAX-ILBAKGEXUYG-EYTWS (10493)Indication: Elevated LFTs On: :04 Request METABOLIC PANEL, COMPREHENSIVE (37221)Indication: Hypercholesteremia On: 91-Hud-661248:41 Request LIPOPROTEIN, BLD, BY NMR (21193)Indication: Hypercholesteremia On: 23-Mxn-920410:41 Request Metabolic Panel, Basic (08051)Indication: Abdominal pain On: :25 Request CBC, Platelets & Auto Diff (61523)Indication: Abdominal pain On: 95-Iox-571334:24 Request Sed Rate Erythrocyte (70236)Indication: Abdominal pain On: 20-Jqp-604946:16 Request URINE RASHAD CULTURE-IDENTIFICATN (51923)Indication: Dysuria On: 83-Ome-76703:35 Request MICROALBUMIN: CREATININE RATIO (67233) AND (29717)Indication: Hypertensive left ventricular hypertrophy On: :01 Request URINALYSIS (92868)Indication: Hypertensive left ventricular hypertrophy On: :01 Request CBC WITH MANUAL DIFF (03085)Indication: Hypertensive left ventricular hypertrophy On: :01 Request Metabolic Panel, Comprehensive (51075)Indication: Elevated LFTs On: :01 Request URINE RASHAD CULTURE-IDENTIFICATN (87476)Indication: Urinary tract infection, site not specified On: :09 Request URINALYSIS (15689)Indication: Urinary tract infection, site not specified On: 37-Lhk-634389:09 Request URINALYSIS (43301)Indication: Dysuria On: 28-Gty-358145:59 Request Homocysteine, Plasma (44169)Indication: MTHFR mutation On: 19-Nov-20169:24 Request Comments: follow up with in six months (approximately) CBC with auto diff (24879)Indication: Hematoma of hip, right, initial encounter On: :57 Request HEPATIC FUNCTION PANEL (96844)Indication: Hypercholesteremia On: 34-Bwq-58623:37 Request Comments: 6 weeks HEPATITIS PANEL (39178)Indication: Elevated LFTs On: 09-Pju-333038:30 Request URINALYSIS, W/ MICRO (39584)Indication: Hypertensive left ventricular hypertrophy On: :49 Request METABOLIC PANEL, COMPREHENSIVE (26928)Indication: Hypertensive left ventricular hypertrophy On: :49 Request LIPID PANEL (35274)Indication: Hypertensive left ventricular hypertrophy On: :49 Request CBC with auto diff (43111)Indication: Hypertensive left ventricular hypertrophy On: :49 Request HgA1C , Office (35324)Indication: Impaired fasting glucose On: 10-Wed-62390:47 Request Lipid Panel (93588)Indication: Afib On: 66-Uwc-601149:21 Request Comments: copy to Dr. matthews Metabolic Panel, Basic (27205)Indication: Afib On: 63-Ddv-926957:20 Request HEPATIC FUNCTION PANEL (87653)Indication: Elevated LFTs On: 30-Otj-951343:20 Request Lipid Panel (87239)Indication: Hypercholesteremia On: 67-Coj-832720:20 Request METABOLIC PANEL, BASIC (21923)Indication: Hypokalemia On: 17-Feb-20139:10 Request Comments: pls send copy to Dr Young also METABOLIC PANEL, COMPREHENSIVE (09645)Indication: Palpitation On: 1-Ivs-853334:10 Request CBC WITH MANUAL DIFF ([id number])Indication: Palpitation On: 5-Onb-714967:10 Request TSH (90510)Indication: Palpitation On: 5-Xlr-972566:10 Request CREATINE KINASE TOTAL (18295)Indication: Abnormal EKG On: 0-Jgq-442152:10 Request CPK MB FRACTION (18955)Indication: Abnormal EKG On: 7-Iof-235238:10 Request Troponin I (97624)Indication: Abnormal EKG On: 1-Ykf-994389:10 Request LIPID PANEL (87741)Indication: Hypertensive left ventricular hypertrophy On: 79-Elr-602085:43 Request Comments: in in six months (approximately) only. URINALYSIS, W/ MICRO (45755)Indication: Hematuria On: 55-Vbu-333525:43 Request CBC (Auto) ([id number])Indication: Hypertensive left ventricular hypertrophy On: 50-Prc-334235:38 Request Metabolic Panel, Comprehensive (73422)Indication: Hypertensive left ventricular hypertrophy On: 90-Qib-797600:37 Request URINE RASHAD CULTURE-IDENTIFICATN (53104)Indication: NEOP, BNG, RENAL PELVIS On: 44-Xft-189446:37 Request COMPLEMENT, TOTAL (CH50) ([id number])Indication: Rheumatoid arthritis On: 7-Nbe-950382:22 Request COMPLEMENT C4 (69835)Indication: Rheumatoid arthritis On: 6-Yyw-916599:22 Request COMPLEMENT C3 (36931)Indication: Rheumatoid arthritis On: 1-Nlx-077282:22 Request Potassium Serum (89380)Indication: Hypokalemia On: 0-Wpy-519892:21 Request Comments: re check on Wednesday05-24-10 please call results to Dr. Troncoso RHEUMATOID FACTOR-QUANT ([id number]) test code [id number]: Rheumatoid arthritis On: 9-Vmj-755819:20 Request Comments: add to labs already drawn please Magnesium (17884)Indication: Hypokalemia On: 7-Oye-765386:19 Request HEPATITIS PANEL (87974)Indication: Elevated LFTs On: :10 Request EBV IGM ANTIBODY (66797)Indication: Elevated LFTs On: : Request RASHAD CULTURE-BLOOD (14742)Indication: Urinary tract infection, site not specified On: : Request Amylase (02109)Indication: Abdominal pain, acute, generalized On: : Request Lipase (58641)Indication: Abdominal pain, acute, generalized On: : Request Sed Rate Erythrocyte (75451)Indication: Abdominal pain, acute, generalized On: : Request Metabolic Panel, Comprehensive (75822)Indication: Abdominal pain, acute, generalized On: : Request CBC with manual diff (90248)Indication: Abdominal pain, acute, generalized On: : Request Influenza A&B Viral Culture (57738)Indication: INFLUENZA W/MANIFESTATION NEC On: 70-Ddj-248891:48 Request Influenza A H1N1 PCR ([id number])Indication: INFLUENZA W/MANIFESTATION NEC On: 47-Fud-042889:48 Request Rapid Flu (57243 x 2)Indication: INFLUENZA W/MANIFESTATION NEC On: 82-Iiq-744889:48 Request METABOLIC PANEL, BASIC (79762)Indication: Hypokalemia On: 12-Pne-263212:20 Request CULTURE, SPUTUM (22453)Indication: Cough On: 24-Feb-20109:25 Request PPD (21234)Indication: Screening examination for pulmonary tuberculosis On: 25-Qmp-461133:05 Request Comments: Lot #[id number]-1/11Site-left forearmDose0.1 mlgiven by:[facility] Potassium Serum (98871)Indication: Hypokalemia On: 00-Rbh-588450:27 Request Comments: 2weeks Glucose, PP/2 Hour (08826)Indication: Impaired fasting glucose On: 79-Kbv-931220:23 Request Comments: 75 gm Lipid Panel (33843)Indication: Hypercholesteremia On: 50-Stc-055065:23 Request Comments: 4 months RASHAD CULTURE-OTHER (25819)Indication: Cellulitis and abscess of leg, except foot On: 49-Qiq-688993:16 Request Comments: nasal BACT CULTURE ANY-ANAEROBIC (51790)Indication: Cellulitis and abscess of leg, except foot On: :16 Request Comments: nasal BACT CULTURE ANY-ANAEROBIC (42609)Indication: Cellulitis and abscess of leg, except foot On: 37-Ufk-201738:15 Request Comments: rt leg RASHAD CULTURE-OTHER (38544)Indication: Cellulitis and abscess of leg, except foot On: 69-Dqn-410762:15 Request Comments: Rt leg OCCULT BLOOD FECES SCREEN (87947)Indication: Well woman exam On: :50 Request Comments: done in office Thin prep Pap (31696)Indication: Well woman exam On: :50 Request URINALYSIS W/O MICRO (68492)Indication: Hypertension, benign On: :49 Request CBC (Auto) (59281)Indication: Hypertension, benign On: :49 Request Lipid Panel (21893)Indication: Hypertension, benign On: :49 Request Metabolic Panel, Comprehensive (24826)Indication: Hypertension, benign On: :49 Request Planned Encounters Medical; [facility] Pre Wellness Exam (Nurse) - On: 08-Mar-2018 8:00 [facility] SAMI Orta; [facility] Wellness Exam (Doctor) - On: 28-Mar-2018 8:00 [facility] Diana Troncoso MD, MD, Dana M Planned Procedures TDAP VACCINE >7 IM (70542)By: On: 31-Aug-2017 Intent Diana Troncoso MD Comments: lot:[id number]:09/16/19rte:IM left deltoid dose:0.5mlgiven by:gosia Gonzáles LPN MD, Dana M DEXA SCAN AXIAL SKELETON On: 31-Aug-2017 Intent (62405)By: Diana Troncoso MD Comments: due 12-04 Diana Troncoso MD Aerosol Treatment (87396)By: On: 28-Apr-2017 Intent Katerine Campo DO Comments: no noise after aeorols inspir or exp Radiology - Chest- PA and On: 28-Apr-2017 Intent LatBy: Katerine Campo DO Spirometry (96264)By: Alber On: 28-Apr-2017 Intent Katerine SANCHEZ Comments: normal SCREENING DIGITAL On: 19-Jan-2017 Intent TOMOSYNTHESIS OF BREAST (81334)By: Diana Troncoso MD, MD, Dana M Holter Monitor 24 hrsBy: On: 10-Nov-2016 Intent Diana Troncoso MD Comments: copy to [employer] and him to read. Diana NUNEZ Radiology [...] DO Comments: stat call results Aerosol Treatment (99834)By: On: 26-Jun-2016 Marleni Lara DO Comments: with albuterol Holter Monitor 24 hrsBy: On: 21-May-2016 Intent Diana Troncoso MD, MD, Dana M EKG (01737)By: You, On: 21-May-2016 Intent SAMI Comments: see [...] M Flu Vaccine (Quadrivalent) On: 31-Jan-2016 Intent 34284Hk: Diana Troncoso MD Comments: Lot:[id number]:10/16/16Dose:0.5mLRoute:IMSite:L DltdGiven By:CHRISSIE signed Diana Troncoso MD MAMMOGRAM, SCREENING, BOTH On: 20-Jan-2016 Intent BREAST (97805)By: Diana Troncoso MD, MD, Dana M Flu Vaccine (Quadrivalent) On: 05-Feb-2015 Intent 70497Rl: Diana Troncoso MD Comments: Lot:[id number]:10/17/15Dose:0.5mLRoute:IMSite:L DltdGiven By:CHRISSIE signed Diana Troncoso MD IMMUNIZ ADMNIN, 1 VAC, On: 14-Jan-2015 Intent SNGL/COMBO (00687)By: Visit, Nurse ZOSTER VACC, PA (72344)By: On: 14-Jan-2015 Intent Diana Troncoso MD Comments: lot: [id number]: 09/02site/route: R arm/SQamt:0.5mLVIS signed when applicableONUR Ballard MD, Dana M ADMINISTRATION OF On: 07-Jan-2015 Intent PNEUMOCOCCAL VACCINE (G0009)By: Izabela Rehman BILATERAL MAMMOGRAMS On: 18-Dec-2014 Intent (41461)By: Diana Troncoso MD, MD, Dana M Solu -Medrol Injection, 125 On: 19-Nov-2014 Intent mg (J2930)By: Jacquelyn Garcia CNP Aerosol Treatment (24595)By: On: 19-Nov-2014 Intent Jacquelyn Garcia CNP Wax CurettesBy: Manjit NUNEZ, On: 03-Jul-2014 Intent Diana Pena MD Ear Irrigation (07899)By: On: 03-Jul-2014 Intent Diana Troncoso MD Comments: IrrigationSite- R earAmount/Color/Quality - medium amount of soft, dark brown cerumen removed Toelrated well: yesCurette ONUR Schofield MD, Dana M Rocephin Injection, 2 Gram On: 03-Jul-2014 Intent (J0696)By: Diana Troncoso MD Comments: IMlot: [id number]: 12/18/16site/route: RGM and LGMamt: 2GVIS signed when applicableONUR Ballard MD, Dana M Solu -Medrol Injection, 125 On: 03-Jul-2014 Intent mg (J2930)By: Manjit NUNEZ, Comments: lot: [id number]: site/route: LGM/IMamt: 2mLVIS signed when applicableONUR Ballard MD, Dana M ELECTROCARDIOGRAM, COMPLETE On: 03-Jul-2014 Intent (ECG) (68541)By: Diana Troncoso MD, MD, Dana M Radiology - ChestBy: Ciesa On: 02-Jul-2014 Intent GRACE Kaitlin Aerosol Treatment (87143)By: On: 29-Jun-2014 Intent Jacquelyn Garcia CNP Solu -Medrol Injection, 125 On: 13-Jun-2014 Intent mg (J2930)By: Ciparam EDWARDS Kaitlin Aerosol Treatment (70877)By: On: 13-Jun-2014 Intent Jacquelyn Garcia CNP Radiology - ChestBy: Ciesa On: 06-Jun-2014 Intent GRACE Kaitlin Aerosol Treatment (82075)By: On: 06-Jun-2014 Intent Nat Boyle LPN Radiology - Knee - RightBy: On: 09-Apr-2014 Intent Katerine Campo DO Agxewyali-Kjb-Oagpu On: 09-Apr-2014 Intent (58366)By: Katerine Campo DO ADMINISTRATION OF INFLUENZA On: 12-Feb-2014 Intent VIRUS VACCINE (G0008)By: Comments: Lot #[id number]-L dltd, IMDose prefilled syringegiven by:SILAS Meredith and ABN signed Visit, Nurse FLU VAC, SPLIT, >3 YEARS, On: 12-Feb-2014 Intent INTRAMUSC (32851)By: Visit, Nurse Ultrasound - LiverBy: Radha On: 23-Jan-2014 Intent Jacquelyn EDWARDS Tfshhpilo-Mbz-Pvfzp On: 25-Sep-2013 Intent (32446)By: Jacquelyn Garcia CNP SPECIMEN HANDLING/TRANSPORT On: 21-Jun-2013 Intent (94965)By: Pinawillian EDWARDS Jacquelyn Bean Breast Screening - On: 20-Jun-2013 Intent BilateralBy: Manjit NUNEZ, Diana Troncoso MD, Diana Nicole ADMINISTRATION OF INFLUENZA On: 08-May-2013 Intent VIRUS VACCINE (G0008)By: Nellie Hickey FLU VAC, SPLIT, >3 YEARS, On: 08-May-2013 Intent INTRAMUSC (55908)By: Manjit Comments: lot [id number] 2014site/route L kely, IMamt 0.5mlVIS and ABN signed when applicableONUR Ballard MD, Diana Troncoso MD, Diana Nicole Aerosol Treatment (70409)By: On: 21-Apr-2013 Intent Radha EDWARDS Jacquelyn Bean SPECIMEN HANDLING/TRANSPORT On: 16-Jan-2013 Intent (92105)By: Danisha Dawson LPN Venous Doppler - RightBy: On: 05-Dec-2012 Intent Pinawillian EDWARDS Kaitlin Radiology - Knee - RightBy: On: 05-Dec-2012 Intent Radha EDWARDS Jacquelyn Bean Holter Moniter (85007)By: On: 24-Nov-2012 Intent Katerine Campo DO Nuclear Stress Test/Stress On: 24-Nov-2012 Intent SPECT/TreadmillBy: Katerine Campo DO Echo CompleteBy: Alber SANCHEZ, On: 24-Nov-2012 Intent Katerine EKG (16877)By: Ernesto, On: 24-Nov-2012 Intent Shayy MATHEW Comments: nsr mild st depression lateral precordial leads MAMMOGRAM, SCREENING, BOTH On: 17-May-2012 Intent BREASTS (86418)By: Manjit NUNEZ, Diana Pena MD FLU VAC, SPLIT, >3 YEARS, On: 29-Mar-2012 Intent INTRAMUSC (11029)By: Ori, Comments: Lot:[id number]:6.30.13Dose:0.5mLRoute:IMSite:L DltdGiven By:JKMVIS signed Izabela ADMINISTRATION OF INFLUENZA On: 29-Mar-2012 Intent VIRUS VACCINE (G0008)By: Izabela Rehman Radiology - Wrist - LeftBy: On: 29-Sep-2011 Intent Diana Troncoso MD, MD, Diana Nicole Eprescribed prescriptions On: 29-Sep-2011 Intent (G8553)By: Diana Troncoso MD, MD, Dana M Aerosol Treatment (15799)By: On: 12-Jun-2011 Intent Ciesa SCIENTIFIC GLASS BLOWER, Kaitlin IMMUNIZ ADMNIN, 1 VAC, On: 03-Apr-2011 Intent SNGL/COMBO (62667)By: Diana Troncoso MD, MD, Dana M FLU VAC, SPLIT, >3 YEARS, On: 03-Apr-2011 Intent INTRAMUSC (52991)By: Manjit NUNEZ, Diana Troncoso MD, Diana Nicole MAMMOGRAM, SCREENING, BOTH On: 03-Apr-2011 Intent BREASTS (05653)By: Diana Troncoso MD, MD, Dana M Radiology - ChestBy: Ciesa On: 21-Jul-2010 Intent SCIENTIFIC GLASS BLOWER, Kaitlin Pulse Oximetry (25748)By: On: 21-Jul-2010 Intent Ciesa SCIENTIFIC GLASS BLOWER, Kaitlin Aerosol Treatment (40732)By: On: 21-Jul-2010 Intent Ciesa SCIENTIFIC GLASS BLOWER, Kaitlin CT - Abdomen & PelvisBy: On: 22-May-2010 Intent Manjit NUNEZ, Diana rToncoso Comments: wet read Diana Chandra MD Aerosol Treatment (14600)By: On: 10-Mar-2010 Intent Katerine Campo DO Comments: less noise adn more air exchg after aerosol -- still some wheezing and harsh noise Spirometry (27938)By: Alber On: 10-Mar-2010 Intent Katerine SANCHEZ Comments: mild obstruction - with FEV 1 of 83% Solu- Medrol Injection, 125mg On: 10-Mar-2010 Intent (J2930)By: Alber SANCHEZ, Comments: 2ml given im in lt hip [id number] exp 10-18-[address] - Brain/HeadBy: Alber SANCHEZ, On: 10-Mar-2010 Intent Katerine Pulse Oximetry (30582)By: On: 10-Mar-2010 Intent Alber DO, Katerine Kwumtqdxs-Mti-Juxvl On: 10-Mar-2010 Intent (17994)By: Katerine Campo DO Radiology - ChestBy: Alber On: 10-Mar-2010 Intent Katerine SANCHEZ Solu -Medrol Injection, 125 On: 07-Mar-2010 Intent mg (J2930)By: Radha EDWARDS, Comments: Lot #[id number]/12Site-L hip KZJxxm7dmxmrov by:SHIRA Bean Aerosol Treatment (16470)By: On: 07-Mar-2010 Intent Jacquelyn Garcia CNP Pulse Oximetry (75218)By: On: 24-Feb-2010 Intent Jacquelyn Garcia CNP Inhaler Demonstration On: 24-Feb-2010 Intent (61267)By: Jacquelyn Garcia CNP Aerosol Treatment (79755)By: On: 24-Feb-2010 Intent Jacquelyn Garcia CNP ADMINISTRATION OF INFLUENZA On: 03-Feb-2010 Intent VIRUS VACCINE (G0008)By: Kanu Comments: Lot #[id number] 4PExp- 4/11Site- L Dltd/IMDose 0.5mlgiven by: QUINCY SILVA LPN, Megan L FLU VAC, SPLIT, >3 YEARS, On: 03-Feb-2010 Intent INTRAMUSC (36565)By: Kanu MATHEW, Eduardo L FLU VAC, SPLIT, >3 YEARS, On: 31-Jan-2010 Intent INTRAMUSC (91624)By: Augusto CLEMENTS, Comments: injection given in left deltoid,see scanned document/ [facility] IMMUNIZ ADMNIN, 1 VAC, On: 31-Jan-2010 Intent SNGL/COMBO (30906)By: Augusto CLEMENTS, Danita MAMMOGRAM, SCREENING, BOTH On: 25-Jul-2009 Intent BREASTS (71066)By: Manjit NUNEZ, Diana Troncoso MD, Diana Nicole Pulse Oximetry (68156)By: On: 28-Mar-2009 Intent SAMI Orta Flu Vaccine, Split IM On: 11-Jan-2009 Intent (51090)By: Rani MATHEW, Comments: Lot #[id number] 4PExp-5/2009Site-Left deltoidgiven by:FLIP Kruger CurettesBy: Radha EDWARDS, On: 02-Jul-2008 Intent Kaitlin Ear Irrigation (80271)By: On: 02-Jul-2008 Intent Jacquelyn Garcia CNP Aerosol Treatment (72618)By: On: 02-Jul-2008 Intent Jacquelyn Garcia CNP Bio Z (79079)By: Manjit NUNEZ, On: 04-May-2008 Intent Diana Troncoso MD, Diana Nicole EKG (09410)By: Manjit NUNEZ, On: 04-May-2008 Intent Diana Troncoso MD, Diana Nicole Holter Moniter (60849)By: On: 04-May-2008 Intent Manjit NUNEZ, Diana Troncoso MD, Diana Nicole Nuclear Stress Test/Stress On: 04-May-2008 Intent SPECT/AdenosineBy: Manjit NUNEZ, Diana Troncoso MD, Diana Nicole Echo CompleteBy: Manjit NUNEZ, On: 04-May-2008 Intent Diana Pena MD Cartoid DopplerBy: Manjit On: 04-May-2008 Intent , Diana Troncoso MD, Diana Nicole FLU VAC, SPLIT, >3 YEARS, On: 20-Mar-2008 Intent INTRAMUSC (09439)By: Yared, Comments: Lot #[id number]-3/30/08Site-right deltoidDose0.5mlgiven by Caro Armenta IMMUNIZ ADMNIN, 1 VAC, On: 20-Mar-2008 Intent SNGL/COMBO (96682)By: Kathi Vail Radiology - ChestBy: Manjit On: 28-Feb-2008 Intent Diana NUNEZ MD, Diana Nicole Comments: not better end of week INFUSION, NORMAL SALINE On: 06-Jul-2007 Intent SOLUTION , 250 CC (J7050)By: Jacquelyn Garcia CNP THER/PROPH/DIAG IV INF, INIT On: 06-Jul-2007 Intent (73812)By: Jacquelyn Garcia CNP Rocephin Injection, 2 Gram On: 06-Jul-2007 Intent (J0696)By: Jacquelyn Garcia CNP Comments: 2gms infused left hand without problem HYDRATION IV INFUSION, INIT On: 05-Jul-2007 Intent (49207)By: Jacquelyn Garcia CNP Comments: #22 gauge started to left forearm area without difficulty per gosia Vancoymcin 500mg/premixedBy: On: 05-Jul-2007 Intent Jacquelyn Garcia CNP Comments: x2Lot #:[id number] date:09-17-08 Amount given:1 gram Route: IVSite given:left forearm area Given by: gosia air conditioner installer helper IMMUNIZ ADMNIN, 1 VAC, On: 08-Feb-2007 Intent SNGL/COMBO (29855)By: Marleni Kang DO FLU VAC, SPLIT, >3 YEARS, On: 08-Feb-2007 Intent INTRAMUSC (89388)By: Jorge Luis SANCHEZ, Comments: given in left deltoid, 0.5cc, lot#[id number], exp.10.17.07 WF Marleni Valencia THER/PROPH/DIAG IV INF, INIT On: 24-Jan-2007 Intent (04230)By: Marleni Kang DO Comments: #22 gauge initiated right forearm without difficulty per gosia INFUSION, NORMAL SALINE On: 24-Jan-2007 Intent SOLUTION , 250 CC (J7050)By: Marleni Kang DO Rocephin Injection, 2 Gram On: 24-Jan-2007 Intent (J0696)By: Marleni Kang DO Comments: Lot #:[id number] date:06-25Amount given:2 grams Route: IVSite given:right forearm Given by: gosia MAMMOGRAM, SCREENING, BOTH On: 26-Aug-2006 Intent BREASTS (44054)By: Manjit Comments: 10-12-06 , Diana Troncoso MD, Diana Nicole ELECTROCARDIOGRAM, COMPLETE On: 26-Aug-2006 Intent (ECG) (47812)By: Manjit NUNEZ, Diana Pena MD Planned Medications [...] The patient does have durable power of trade mark attorney and living will. The patient has noticed nothing from the geriatic depress ion scale. Other providers contributing to the patient's care are manager cancer, patient access registrar and other: [facility]Encounter Diagnosis: BMI 29.0- 29.9,adult, [...] for Tdap vaccination (Renamed from Need for fhhwxwnutv-tptkdzh-ndknqvivf (Tdap) vaccine, adult/adolescent) [facility] Office [...] Nutrition: balanced diet and supplemental vitamins. The wi dical issues the patient is following up [...] The patient does have durable power of trade mark attorney and living will. The patient has noti silvano nothing from the geriatic depression scale. Other providers contributing to the patient's care are manager cancer (Dr Young), drag sawyer (Arin - when had pneumonia but not currently in need of his care at this time), patient access registrar (dr Garland), surgeon ([facility] - shoulder) and other: (dentist - Dr Chiu - [facility] - goes every 3 years. Last [...] or bracelet or put area rugs [facility] house. The patient has completed the following preventative measures: PAP smear (many years ago will have today ), mammography () and colonoscopy (2005). The patient does have durable power of trade mark attorney and living will. The patient has noticed nothing from the geriatic depression scale. Other providers contributing to the patient's care are manager cancer (Dr. Young ), gastrologist (Dr. Cande novak ), patient access registrar (Dr. Garcia ) and other: (Dr. Reza [...] oral corticosteroids (celebrex).Encounter Diagnosis: Knee pain, right (689.46) [facility] Phone Encounter On: 25-Nov-2012 [...] visit: still red and tender to touch, [place] took out cyst and dr sifuentesned it.- [...]
--- OUTSIDE RECORDS SUMMARY | 2018-07-07 08:28 | XMS RPT_ITS | Continuity of Care Document ---
:1940 Author Organization [facility] Address [address] [facility] [address] [place] [address] Phone Care Team Providers Name Role Phone [...] MD, Dana M Start : 29-Jun-2017 Active H-Uqeuyemwjhbo-Tgzae 7.5-90.314 MG Oral Capsule 1 (one) Capsule [...] days Quantity: 20 {Tablet} Refills: 0 Ordered:20-May-2017 SMAI Orta Start : 04-May-2017 End : 20-May-2017 [...] 20-May-2017 End : 29-Jun-2017 Inactive Comments:called to [facility] in [place], [phone] Medrol 4 MG Oral Tablet Therapy Pack [...] days Quantity: 90 {Tablet} Refills: 0 Ordered:13-Jul-2013 SMAI Orta Start : 21-Apr-2013 End : 13-Jul-2013 [...] End : 10-Mar-2010 Discontinued CALCIUM + D, 557-639RZ-DRSM (Oral Tablet) 2 qd for 0 days [...] Arthritis (M19.90, 716.90) Comments: Dr. Garcia in [place] stable off meds now doign well last [...] directly onto right side, onto deck into [facility] has swelling and ecchymosis Status: Resolved [...] for Tdap vaccination (Renamed from Need for jfrbhrkweu-rvozjze-lbwvvepvg (Tdap) vaccine, adult/adolescent) (Z23, V06.1) Status: Resolved [...] VAC ADLT/IMUMNOSPR, SBC/INTRM Date: 07-Jan-2015 Completed 07-Jan-2015 (85582) Comments: Lot:[id number]:05/01/16Dose:0.5mgRoute:imSite:ganga Roberts By:FRANCA given on 01/03/15VIS signed Colonoscopy Completed Comments: 2005 colonoscopy Completed Comments: Dr Bailey - around age 56 or 66 D&C to get Completed Comments: x3 PACEMAKER IMPLANTATION (16912) Completed Comments: dual chamber 06-29-[address] [facility] [address]. Fleming ROTATOR CUFF REPAIR Completed Comments: Left, July 31 2005, Dr Josue Tonsillectomy Completed Tubal Ligation Completed Date Value Details 18-Jan-2018 Cardiology Visit Report Result: Comments: See Note; NOTES: [place] [facility] [place] [address] OFFICE VISIT Date of Service: 01/18/18 MR#: [id number] Acct: [id number] Name: MALI WALDEN Ruchi bazzi #: [id number] : 1940 Provider: ELISE Bah Age/Sex: 77/F Location[facility] Status: Signed HPI HPI Details: MALI WALDEN, [...] mg PO DAILY 06/08/17 [History Confirmed 01/18/18] Copen-3 Fatty Acids/Fish Oil [Fish Oil 1,000 mg [...] Clear to Auscultation Cardio Palpation: normal P OR Rate: regular rate Rhythm: regular rhythm Heart [...] rhythm of AAI pacing at 98 ppm, ANODIZER=0%, AP=96.2%, and battery life estimated to be [...] CT w/CCTA Result: Comments: See Note; NOTES: [facility] Imaging Services [address] [place] [address] w/CCTA MR#: [id number] Acct: [id number] Name: MALI WALDEN Rep #: [id number] : 1940 F 77 From: Archie Alvares MD PCP: Diana Troncoso MD Status: REG CLI Study: Limited Chest CT w/CCTA Date of Exam: 12/16/17 Exam# [id number] Ordering Dr: Diana Troncoso MD STUDY: CT [...] Archie Alvares MD at 9:03 EDT Tel [phone], Service support , CC: Diana Troncoso MD Clay Press Operator: Signed 02-Dec-2017 Pacemaker Check Result: Comments: See Note; NOTES: [place] [facility] [address] [place] [address] Pacemaker Check Date of Service: 12/01/172006 MR#: [id number] Acct: [id number] Name: EDDIE WALDEN Rep #: [id number] : 1940 From: Nishi Johnson Age/Sex: 77/F Location[facility] Status: Signed 12/01/172008 <Electronically signed by Nishi Johnson > Date Nishi Johnson 12/02/17 0855<Electronically signed by Manoj Young MD> Cosigner Signature: Date (if applicable) Manoj Young MD CC: 04-Sep-2017 Cardiology Visit Report Result: Comments: See Note; NOTES: [place] [facility] [place] [address] [place] [address] OFFICE VISIT Date of Service: 09/03/17 MR#: [id number] Acct: [id number] Name: MALI WALDEN p #: [id number] : 1940 Provider: Amna Vang Age/Sex: 76/F Location: [facility] Status: Signed HPI HPI Details: MALI [...] 29.0 Intake Visit Reasons: 3 M FU Oracle Etl Developer Required: No Accompanied by: none Is patient [...] mg PO DAILY 06/08/17 [History Confirmed 09/03/17] Copen-3 Fatty Acids/Fish Oil [Fish Oil 1,000 mg [...] <Electronically signed by Amna CARVER> Date Amna martiens Signature: Date (if applicable) CC: Diana Troncoso MD 31-Aug-2017 Pacemaker Check Result: Comments: See Note; NOTES: [facility] 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 6 wk post implant [...] rhythm shows AAI pacing @ 71 ppm. ANODIZER=0.1%. Estimated battery life 9 yrs. Device and lead measurements stable. Decreased A/V amplitudes with adequate safety margin to preserve battery longevity. Counters cleared. Next remote f/u appt scheduled for in 3 mos. Device Device Date Interviewed: 08/20/17 Follow-up Location: in office Interview Reason: scheduled follow up Manufact urer: Medtronic Name: Fazal GALLOWAY Model: A2DR01 Serial #: [id number] Implant Date: 06/28/17 Year(s): 0 Implant Physician: Dr. Brennan Fleming/[facility] Patient Characteristics Atrial Indication: sick sinus synd gino, Paroxysmal atrial fibrillation Patient Substrate: Arrhythmia Underlying rhythm: Sinus bradycardia Pacemaker Dependent: No Device Characteristics Device: Dual Chamber Type: Pacemaker Remote Follow- Up: [facility] Device Physical Exam Yes Incision well healed Leads Lead #1 Chain Carrier Lead 1: Medtronic Model Lead 1: 5076/45 Serial# Lead 1: [id number] Date Implanted Lead 1: 06/28/17 Position Lead 1 : RA Lead #2 Chain Carrier Lead 2: [employer] Model Lead 2: 5076/52 Serial# Lead 2: [id number] Date Implanted Lead 2: 06/28/17 Position Lead [...] Discharge Instruction Result: Comments: See Note; NOTES: [facility] Medical Records Department [address] [place] [address] Instructions for Home/Discharge Instructions 06/29/17 1042 MR#: [id number] Acct: [id number] Name: MALI WALDEN Rep #: [id number] : 1940 76 From: Brennan Fleming MD PCP: Diana Troncoso MD Status: REG [facility] Discharge Diet: No Restrictions Discharge [...] call your doctor's office or Doctor's Registry ([phone]) Call 911 or go to the nearest [...] mg tablet 12.5 mg PO DAILY 06/08/17 Copen-3 Fatty Acids/Fish Oil [Fish Oi l 1,000 mg Capsule] 1 each PO DAILY 06/28/17 Primary Care Physician: Diana Troncoso MD [Primary Care Provider] - When: pacer nurse 06/29/17 1050 <Electronically signed by Brennan Fleming MD&am p;#62; Date Brennan Fleming MD CC: Diana Troncoso MD 29-Jun-2017 Chest 1 View Result: Comments: See Note; NOTES: [facility] Imaging Services [address] [place] [address] Chest 1 View MR#: [id number] Acct: [id number] Name: MALI WALDEN Rep #: [id number] : F 76 From: Liam Arreaga PCP: Diana Troncoso MD Status: [facility] Study: Chest 1 View Date of Exam: 06/29/17 Exam# [id number] Ordering Dr: Brennan Fleming MD STUDY: X-RAY [...] CC: Brennan Fleming MD; Diana Troncoso MD Clay Press Operator: Signed 29-Jun-2017 Chest PA and Lateral Result: Comments: See Note; NOTES: [facility] Imaging Services [address] [place] [address] Chest PA and Lateral MR#: [id number] Acct: [id number] Name: MALI WALDEN Rep #: [id number] : 1940 F 76 From: Liam Arreaga PCP: Diana Troncoso MD Status: REG [facility] Study: Chest PA and Lateral Date of Exam: 06/29/17 Exam# [id number] Ordering Dr: Brennan Fleming MD STUDY: X-RAY [...] CC: Brennan Fleming MD; Diana Troncoso MD Clay Press Operator: Signed 22-Jun-2017 Office Visit Report Result: Comments: See Note; NOTES: [facility] Services [address] [address] OFFICE VISIT Date of Service: 06/21/17 MR#: [id number] Acct: [id number] Patient: MALI WALDEN Rep #: [id number] : 1940 Provider: Nishi Johnson Age/Sex: 76/F Location[place] [facility] Status: Signed Comments Summary Comments: Pacemaker instructions, [...] Stress Report Result: Comments: See Note; NOTES: [facility] Cardiovascular Services [address] [place] [address] MR#: [id number] Acct: [id number] Name: MALI WALDEN Rep #: [id number] : [birth year] 76 From: Brennan Fleming MD [...] Vang Date Dictated: 06/15/17921 Date Transcribed: 06/15/17921 Clay Press Operator: [place] Signed 09-Jun-2017 Cardiology Visit Report Result: Comments: See Note; NOTES: [facility] [address] [place] [address] OFFICE VISIT Date of Service: 06/08/17 MR#: [id number] Acct: [id number] Name: JORGEMALINAY bazzi #: [id number] : 1940 Provider: Amna Vang Age/Sex: 76/F Location: [facility] Status: Signed HPI HPI Details: MALI [...] was in the hospital last month in [place]. She was lightheaded and dizzy. She had [...] 55 to 59 (55% per echo 11/13/14) [facility] Medical History PSVT (paroxysmal supraventricular tachycardia) (Chronic) [...] nausea, vomiting, heartburn, constipation, belching, bloating, scrap baler mping, vomiting blood/hematemesis, bright, red blood in [...] and Lateral Result: Comments: See Note; NOTES: [facility] Imaging Services [address] [place] [address] Chest PA and Lateral MR#: [id number] Acct: [id number] Name: MALI WALDEN Rep #: [id number] : 1940 F 76 From: Tex Junior DO PCP: Daina Troncoso MD Status: [facility] CLI Study: Chest PA and Lateral Date of Exam: 04/28/17 Exam# [id number] Ordering Dr: Katerine Campo DO STUDY: X-RAY [...] Tex Junior DO at 9:39 EST Tel [phone], Service support , CC: Diana Troncoso MD; Katerine Campo DO Clay Press Operator: Signed 02-Mar-2017 SCREENING MAMM (CAD), BILAT Result: Comments: See Note; NOTES: [facility] Imaging Services [address] [place] [address] SCREENING MAMM (CAD), BILAT MR#: [id number] Acct: [id number] Name: MALI WALDEN Rep #: [id number] : 1940 F 76 From: Archie Alvares MD PCP: Diana Troncoso MD Status: REG CLI Study: SCREENING MAMM (CAD), BILAT Date of Exam: 03/02/17 Exam# [id number] Ordering Dr: Diana Troncoso MD MA MMOGRAPHY [...] delay biopsy of a clinically suspicious abnormality. [id number] Electronically Signed: Archie Alvares MD at 16:04 EST Tel [phone], Service support , CC: Diana Troncoso MD Clay Press Operator: Signed 03-Jan-2017 Inital Evaluation (1) - PT Result: Comments: See Note; NOTES: [facility] Physical Therapy [facility] [address] [place] [address]. [address] [place] [address] Fax REHABILITATION SERVICES INITIAL EVALUATION MR#: [id number] Acct: [id number] Name: MALI WALDEN Rep #: [id number] : 1940 76 From: Moody Tang DPT Referring Dr.: Berto Carrillo MD Status: REG RCR [facility] Information MALI WALDEN [...] gym exercises with increased tolerance. 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 Please let me know if there are questions or concerns regarding this plan of care . Physician Signature: Date: <Electronically signed by Moody Tang DPT> 01/03/17 1457 CC: Diana Troncoso MD; Berto lawrence MD CLS Signed For Medicare only, by signing this I certify the plan of care. Physicians Signature Date 03-Dec-2016 Carotid Duplex Ultrasound Result: Comments: See Note; NOTES: [facility] Cardiovascular Services [address] [place] [address] Carotid Duplex Ultrasound 12/03/16 1106 MR#: [id number] Acct: [id number] Name: MALI WALDEN Rep #: [id number] : 1940 76 From: Charlie Aragon MD [...] the left vertebral artery. Procedure Carotid Duplex 12990. The exam was diagnostic. Exam performed in department. Interpretation Summary M ild (<50%) stenosis right extracranial internal carotid. Mild (<50%) stenosis left extracranial internal carotid. Flow within the vertebral arteries is antegrade bilaterally. Ordering Physician: Manoj Young Performed By: Rey Sánchez, RVT 12/03/162032 Date Charlie Aragon MD CC: Diana Troncoso MD; Manoj Young MD Date Dictated: 12/03/16 1106 Date Transcr ibed: 12/03/162032 Clay Press Operator: Signed 28-Jul-2016 PT D/C Summary (1) Result: Comments: See Note; NOTES: [facility] Physical Therapy [address] [place] [address] Fax [facility] MR#: [id number] Acct: [id number] Name: MALI WALDEN Rep #: [id number] : 1940 75 From: Yolanda Cassidy PT, Cert. MDT Referring Dr.: Diana Troncoso MD Status: REG RCR Insurance: [facility] - PT D/C Summary It [...] PAIN NOW. 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 Thank you for the referral of this patient. Sincerely, Yolanda Cassidy <Electronically signed by Yolanda Cassidy PT, Cert. MDT> 07/28/16 1143 CC: Diana Troncoso MD TERESSA Signed 26-Jun-2016 Chest PA and Lateral Result: Comments: See Note; NOTES: [facility] Imaging Services [address] [place] [address] Verdana 4d Chest PA and Lateral MR#: [id number] Acct: [id number] Name: MALI WALDEN Vikas Rep #: [id number] : 1940 F 75 From: Rubens Waters MD PCP: Diana Troncoso MD Status: REG CLI Study: Chest PA and Lateral Date of Exam: 06/26/16 Exam# [id number] Ordering Dr: Marleni Kang DO STUDY: X-RAY [...] at 13:11 EST Tel , Service support [phone], CC: Diana Troncoso MD; Marleni Kang DO Clay Press Operator: Signed 20-May-2016 Re-Evaluation - PT (1) Result: Comments: See Note; NOTES: [facility] [address] [place] [address]. [address] [place], [place] [address] Fax REEVALUATION / MEDICARE RECERTI FICATION [place] 4d PHYSICAL THERAPY MR#: [id number] Acct: [id number] Name: MALI WALDEN Rep #: [id number] : 1940 75 From: Yolanda Cassidy PT, Cert. 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 AND WILL CONT INDEP WATER EX AT [...] do not hesitate to contact me at [phone] by phone or if you have questions or concerns regarding this new plan of care! Sincerely, Yolanda Cassidy < Electronically signed by Yolanda Cassidy PT, Cert. MDT> 05/20/16 1026 CC: iDana Troncoso MD TERESSA Signed For Medicare only, by signing this I certify the plan of care. _ Physicians Signature Date 07-May-2016 Liver Result: Comments: See Note; NOTES: [facility] Imaging Services [address] [place] [address] Verdana 4d Liver MR#: [id number] Acct: [id number] Name: MALI WALDEN Rep #: [id number] : 1940 F 75 From: Archie Alvares MD PCP: Diana Troncoso MD Status: REG CLI Study: Liver Date of Exam: 05/07/16 Exam# [id number] Ordering Dr: Diana Troncoso MD STUDY: ABDOMINAL [...] Archie Alvares MD at 10:59 EST Tel [phone], Service support [phone], CC: Diana Troncoso MD Clay Press Operator: Signed 23-Apr-2016 Inital Evaluation (1) - PT Result: Comments: See Note; NOTES: [facility] Physical Therapy [facility] [address] [place] [address]. [address] [place] [address] Fax REHABILITATION SERVICES INITIAL EVALUATION MR#: [id number] Acct: [id number] Name: MALI WALDEN Rep #: [id number] : 1940 75 From: Yolanda Cassidy PT, Cert. MDT Referring Dr.: Diana Troncoso MD Status: REG RCR [facility] Patient's Visit Information MALI WALDEN [...] be FAXED BACK to u s at [phone] for Medicare purposes. Please let me know [...] with Pelvis Result: Comments: See Note; NOTES: [facility] Imaging Services [address] [place] [address] Verda 4d Hip 2-3 Views with Pelvis MR#: [id number] Acct: [id number] Name: MALI WALDEN Rep #: [id number] : 1940 F 75 From: Archie Alvares MD PCP: Diana Troncoso MD Status: REG CLI Study: Hip 2-3 Views with Pelvis Date of Exam: 02/10/16 Exam# [id number] Ordering Dr: Diana Troncoso MD STUDY: X-RAY [...] Archie Alvares MD at 13:03 EDT Tel [phone], Service support [phone], CC: Diana Troncoso MD Clay Press Operator: Signed 10-Feb-2016 L/S Spine Min 4 Views Result: Comments: See Note; NOTES: [facility] Imaging Services [address] [place] [address] Ver[place]t 4d L/S Spine Min 4 Views MR#: [id number] Acct: [id number] Name: MALI WALDEN Rep #: [id number] : 1940 F 75 From: Archie Alvares MD PCP: Diana Troncoso MD Status: REG CLI Study: L/S Spine Min 4 Views Date of Exam: 02/10/16 Exam# [id number] Ordering Dr: Diana Troncoso MD S TUDY: [...] Archie Alvares MD at 12:46 EDT Tel [phone], Service support [phone], CC: Diana Troncoso MD Clay Press Operator: Signed 22-Jan-2016 Bilat Scrn Digital AND CAD Result: Comments: See Note; NOTES: [facility] Imaging Services [address] [facility] [address] Verdana 4d Bilat Scrn Digital AND CAD MR#: [id number] Acct: [id number] Name: MALI WALDEN Rep #: [id number] : 1940 F 75 From: Archie Alvares MD PCP: Diana Troncoso MD Status: REG CLI Study: Bilat Scrn Digital AND CAD Date of Exam: 01/22/16 Exam# [id number] Ordering Dr: Derekc Troncoso MD MAMMOGRAPHY - BILATERAL SCREENING REASON [...] delay biopsy of a clinically suspicious abnormality. [id number] Electronically Signed: Archie Alvares MD at 10:36 EDT T [phone], Service support [phone], CC: Diana Troncoso MD Clay Press Operator: Signed 08-Feb-2015 Emergency Department Summary Result: Comments: See Note; NOTES: [facility] Medical Records Department [address] [place] [address] Emergency Department Summary MR#: [id number] Acct: [id number] Name: MALI WALDEN Rep #: [id number] : 1940 74 From: Solomon Morse MD [...] C: Diana Ribeiro MD T: NTS JOB: [id number] 02/08/15 0119 <Electronically signed by Solomon Morse MD> Date Solomon Morse MD Cosigner Signature (If Indicated): Date CC: Diana Troncoso MD; Naga Ribeiro Date Dictated: 02/07/151633 Date Transcribed: 02/07/151633 Clay Press Operator: Signed 07-Feb-2015 Discharge Instruction Result: Comments: See Note; NOTES: [facility] Medical Records Department [address] [place] [address] Discharge Instruction 02/07/151630 MR#: [id number] Acct: [id number] Name: MALI WALDEN Rep #: [id number] : 1940 74 From: Solomon Morse MD [...] problems, contact your doctor. Call Doctors Registry ([phone]) or report to the closest Emergency Room. Call 911 if necessary. 02/07/15 1632 <Electronically signed by Solomon Morse MD> Date Solomon Morse MD Cosigner Signature (If Indicated): Date CC: Diana Troncoso MD 18-Jan-2015 Nuclear Stress Test - Treadmil Result: Comments: See Note; NOTES: [facility] Imaging Services [address] [place] [address] STRESS TEST REPORT 01/18/15 0925 MR#: [id number] Acct: [id number] Name: MALI WALDEN Rep #: [id number] : 1940 74 From: Manoj Young MD [...] LVEF of 67%. Manoj Young MD T: [facility] JOB: [id number] 01/18/15 1221 <Chapito jara signed by Manoj Young MD> Date Manoj Young MD CC: Diana Troncoso MD; Manoj Young MD Date Dictated: 01/18/15924 Date Lux scribed: 01/18/15924 Clay Press Operator: Signed 16-Jan-2015 Bilat Scrn Digital AND CAD Result: Comments: See Note; NOTES: [facility] Imaging Services [address] [place] [address] Breast Imaging Report MR#: [id number] Acct: [id number] Name: MALI WALDEN Rep #: [id number] : 1940 F 74 From: Archie Alvares MD PCP: Diana Troncoso MD Status: REG CLI Study: Bilat Scrn Digital AND CAD Date of Exam: 01/16/15 Exam# [id number] Ordering Dr: Diana Troncoso MD MAMMOGRAPHY - [...] Archie belle MD at 15:35 EDT Tel [phone], Service support [phone], CC: Diana Troncoso MD Clay Press Operator: Signed 16-Dec-2014 Emergency Department Summary Result: Comments: See Note; NOTES: [facility] Medical Records Department [address] [place] [address] Emergency Department Summary MR#: [id number] Acct: [id number] Name: MALI WALDEN Rep #: [id number] : 1940 74 From: Geogre Colvin DO PCP: Diana Troncoso MD Status: [...] condition. George Colvin DO T: NTS JOB: [id number] 12/16/14 1607 <Electronically signed by George Colvin DO> Date George Colvin DO Cosigner Signature (If Indicated): Date CC: Diana Troncoso MD Date D ictated: 12/16/141039 Date Transcribed: 12/16/141039 Clay Press Operator: Signed 16-Dec-2014 Discharge Instruction Result: Comments: See Note; NOTES: [facility] Medical Records Department [address] [place] [address] Discharge Instruction 12/16/14 1036 MR#: [id number] Acct: [id number] Name: MALI WALDEN Rep #: [id number] : 1940 74 From: George Colvin DO PCP: Diana Troncoso MD Status: REG ER ED Disposition - Plan for ED Patient: Chief Complaint: Abd Pain Instructions: ED Di verticulitis Prescriptions: Hydrocodone Bitart/Apap 5-325 [[place] 5/325] 1 - 2 tablet PO Q4H [...] problems, contact your doctor. Call Doctors Registry ([phone]) or report to the closest Emergency Room. Call 911 if necessary. 12/16/14 1037 <Electronically signed by George martines DO> Date George Colvin DO Cosigner Signature (If Indicated): Date CC: Diana Troncoso MD 16-Dec-2014 Abdomen/Pelvis without Cont Result: Comments: See Note; NOTES: [facility] Imaging Services [address] [place], [place] [address] CAT Scan Report MR#: [id number] Acct: [id number] Name: MALI WALDEN Rep #: [id number] : 1940 F 74 From: Miguel Tidwell PCP: Diana Troncoso MD Status: REG ER Study: Abdomen/Pelvis without Cont Date of Exam: 12/16/14 Exam# [id number] Ordering Dr: George Colvin DO STUDY: CT [...] Sagittal and coronal images were reconstructed. [facility]: July 30, 2010 FINDINGS: The visualized lung [...] at 10:32 EDT Tel , Service support [phone], CC: Diana wright MD; George Colvin DO Clay Press Operator: Signed 13-Nov-2014 Echocardiogram Complete Result: Comments: See Note; NOTES: [facility] Cardiovascular Services [address] [place] [address] Echo Complete 11/13/14 0720 MR#: [id number] Acct: [id number] Name: MARÍA ELENA WALDEN E Rep #: [id number] : 1940 74 From: Manoj Young MD Attending Dr: Manoj Young MD Status: REG CLI Ordering Dr: Manoj Young MD Date: 11/13/14 Location: [facility] Sex: F C Admitted: Procedure This [...] MD Date Dictated: 11/13/14719 Date Transcribed: 11/13/142054 Clay Press Operator: Signed 22-Aug-2014 PT Discharge Summary Result: Comments: See Note; NOTES: [facility] Physical Therapy [facility]. [address] [place], [place] [address] Fax REHABILITATION SERVICES DISCHARGE SUMMARY MR#: [id number] Acct: [id number] Name: MALI WALDEN Rep #: [id number] : 1940 73 From: Anibal Decker Referring [...] program and has a membership here at [facility] as she will continue on her [...] followup. Anibal Decker, PT T: NTS JOB: [id number] <Electronically signed by Anibal Decker > 08/22/14 0746 CC: Signed 02-Jul-2014 Chest PA and Lateral Result: Comments: See Note; NOTES: [facility] Imaging Services [address] [place] [address] Radiology Report MR#: [id number] Acct: [id number] Name: MALI WALDEN Rep #: [id number] : 1940 F 73 From: Rubens Waters MD PCP: Diana Troncoso MD Status: REG CLI Study: Chest PA and Lateral Date of Exam: 07/02/14 Exam# [id number] Ordering Dr: Diana Troncoso MD STUDY: X-RAY [...] at 14:51 EDT Tel , Service support [phone], CC: Diana Troncoso MD Clay Press Operator: Signed 28-Jun-2014 Inital Evaluation - PT Result: Comments: See Note; NOTES: [facility] Physical Therapy Health[address] [place] [address] Fax REHABILITATION SERVICES INITIAL EVALUATION MR#: [id number] Acct: [id number] Name: AMLI WALDEN Rep #: [id number] : 1940 73 From: Anibal Decker Referring [...] one fall was on a trip to [place] when the dog walked in front of [...] is a [employer] member here at [employer], but has not been able to get [...] reciprocal heel and toe tapping is good. Xrwz-rv-mdlx test is good. Re ciprocal hand tapping [...] will score at least 64/[address] [facility] functional scale to help show [...] [employer]. Anibal Decker, PT T: NTS JOB: [id number] <Electronically signed by Anibal Decker > 06/28/14 0929 CC: DD: 0 06/27/14 Signed For Medicare only, by signing this I certify the plan of care. Physicians Signature Date 06-Jun-2014 Chest PA and Lateral Result: Comments: See Note; NOTES: [facility] Imaging Services [address] [place] [address] Radiology Report MR#: [id number] Acct: [id number] Name: MALI WALDEN Rep #: [id number] : 1940 F 73 From: Archie Alvares MD PCP: Diana Troncoso MD Status: REG CLI Study: Chest PA and Lateral Date of Exam: 06/06/14 Exam# [id number] Ordering Dr: Jacquelyn Garcia STUDY: X-RAY CHEST [...] Archie Alvares MD at 15:28 EST Tel [phone], Service support [phone], CC: Jacquelyn Garcia; Diana Troncoso MD Clay Press Operator: Signed 09-Apr-2014 Knee 4 or More Views Result: Comments: See Note; NOTES: [facility] Imaging Services [address] [facility] [place] [address] Radiology Report MR#: [id number] Acct: [id number] Name: MALI WALDEN Rep #: [id number] : 1940 F 73 From: Rubens Waters MD PCP: Diana Troncoso MD Status: REG CLI Study: Knee 4 or More Views Date of Exam: 04/09/14 Exam# [id number] Ordering Dr: Katerine Campo DO STUDY: X-RAY [...] MD at 12:15 EST , Service support [phone], CC: Diana Troncoso MD; Katerine Campo DO Clay Press Operator: Signed 09-Apr-2014 Ribs Unil 2V No CXR Result: Comments: See Note; NOTES: [facility] Imaging Services [address] [place] [address] Radiology Report MR#: [id number] Acct: [id number] Name: MALI WALDEN Rep #: [id number] : 1940 F 73 From: Rubens Waters MD PCP: Diana Troncoso MD Status: REG CLI Study: Ribs Unil 2V No CXR Date of Exam: 04/09/14 Exam# [id number] Ordering Dr: Katerine Campo DO STUDY: X-RAY [...] MD at 12:11 EST , Service support [phone], CC: Diana Troncoso MD; Katerine Campo DO Clay Press Operator: Signed 07-Feb-2014 Liver Result: Comments: See Note; NOTES: [facility] Imaging Services [address] [place] [address] Ultrasound Report MR#: [id number] Acct: [id number] Name: MALI WALDEN Rep #: [id number] : 1940 F 73 From: Archie Alvares MD PCP: Diana Troncoso MD Status: REG CLI Study: Liver Date of Exam: 02/07/14 Exam# [id number] Ordering Dr: Jacquelyn Garcia STUDY: ABDOMINAL ULTRASOUND [...] Alvares MD at 10:36 ED T Tel [phone], Service support [phone], CC: Jacquelyn Garcia; Diana Troncoso MD Clay Press Operator: Signed 25-Sep-2013 Ribs Unil 2V No CXR Result: Comments: See Note; NOTES: [facility] Imaging Services [address] [place] [address] Radiology Report MR#: [id number] Acct: [id number] Name: MALI WALDEN Vikas Rep #: [id number] : 1940 F 72 From: Archie Alvares MD PCP: Diana Troncoso MD Status: REG CLI Study: Ribs Unil 2V No CXR Date of Exam: 09/25/13 Exam# [id number] Ordering Dr: Jacquelyn Garcia STUDY: X-RAY - [...] Archie Alvares MD at 15:44 EDT Tel [phone], Service support [phone], Fax CC: Jacquelyn Garcia; Diana Troncoso MD Clay Press Operator: Signed 22-Aug-2013 Crissy [employer]ott [employer] Result: Comments: See Note; NOTES: [facility] Imaging Services [address] [place], [place] [id number] Breast Imaging Report MR#: [id number] Acct: [id number] Name: MALI WALDEN Rep #: [id number] : 1940 F 72 From: Archie Alvares MD PCP: Diana Troncoso MD Status: REG CLI Exam# [id number] Ordering Dr: Diana Troncoso MD MAMMOGRAPHY - [...] Signed: Corey Monson at 11:24 EDT Tel [phone], Service support [phone], CC: Diana Troncoso MD Clay Press Operator: Signed Immunization Name Dates Details Influenza (3 years and up) on: 08-Feb-2007 Comments: given in left deltoid, 0.5cc, lot#[id number], exp.10.17.07 WF Influenza (3 years and up) on: 20-Mar-2008 Comments: Lot #[id number]-0/30/08Site-right deltoidDose0.5mlgiven by Caro Vail LPN Influenza (3 years and up) on: 11-Jan-2009 Comments: Lot #[id number] 4PExp-08/2009Site-Left deltoidgiven by:FLIP Pneumococcal (2 years and up) on: 07-Jan-2015 Comments: Site: Deltoid (Left) Lot #: <Undefined> Pneumococcal conjugate vaccine, 13 valent, IM Comments: winter 2016 [facility] Family History Unknown Family Member Name Dates Details Brother 1 Comments: Bladder CA, prostate, smoker Status: Active Brother 2 Comments: of [place] 66yo, obese Status: Active Daughter 1 Comments: [...] kg/m2 Body Surface Area Calculated 1.76 m2 62-Vvk-939532:53 Pulse 58 /min Comments: Pattern: Regular Respiration [...] copy of this report has been sent [phone].PATIENT NOT FASTINGPERFORMED BY: LabCoSaint Peter's University HospitalYsrqor1366 [facility] [id number] Info rmation: FX [phone] (11427) ALT (SGPT) 47 [iU]/L (Abnormal) Range: 0-32 AST (SGOT) 32 [iU]/L (Normal) Range: 0-40 Alkaline Phosphatase 90 [iU]/L (Normal) Range: 39-117 Bilirubin, Direct 0.19 mg/dL (Normal) Range: 0.00-0.40 Bilirubin, Total 0.7 mg/dL (Normal) Range: 0.0-1.2 Albumin 4.5 g/dL (Normal) Range: 3.5-4.8 Protein, Total 6.8 g/dL (Normal) Range: 6.0-8.5 :20 LDL Cholesterol (Direct) Comments: PATIENT WAS FASTINGPERFORMED BY: Geo SemiconductorSaint Peter's University HospitalVgcsmz1753 [facility] [id number] LDL Chol. (Direct) 83 mg/dL (Normal) Range: 0-99 : Written Authorization WAR (Normal) Comments: PATIENT WAS FASTINGPERFORMED BY: [facility]6370 [facility] [id number] Comments: Written Authorization Received.Authorization received from EDUARDO BATEMAN LPN [id number] by Holley Ma :20 Metabolic Panel, Comments: PATIENT WAS FASTINGPERFORMED BY: LabSaint [facility] Center1447 [facility] [id number] BY: [facility]6370 [facility] [id number] [facility] (72256) ALT (SGPT) 38 [iU]/L (Abnormal) Range: 0-32 [...] 8-27 Glucose 126 mg/dL (Abnormal) Range: 65-99 13-Cmc-12462:20 LIPOPROTEIN, BLD, BY NMR Comments: PATIENT WAS FASTINGPERFORMED BY: BN [facility] [address] [id number] BY: CB [facility] Azbksx4012 [facility] [id number] (19840) LP-IR Score 66 (Abnormal) Comments: INSULIN RESISTANCE MARKER <--Insulin Sensitive Insulin Resistant--> Percentile in Reference PopulationInsulin Resistance ScoreLP-IR Score Low 25th 50th 75th High <27 27 45 63 >63LP-IR Score is inaccurate if patient is non-fasting. .The LP-IR score is a laboratory developed i [facility] that has beenassociated with insulin resistance and [...] were developed and their performance characteristicsdetermined by [employer]. These assays have not been cleared by [...] 1600 - 2000 Very High > 2000 27-Yaa-18307:24 HEPATIC FUNCTION PANEL Comments: PATIENT WAS FASTINGPERFORMED BY: BN [facility] [address] [id number] BY: CB [facility] Xbsdpu6489 [facility] [id number] (78757) ALT (SGPT) 34 [iU]/L (Abnormal) Range: 0-32 AST (SGOT) 30 [iU]/L (Normal) Range: 0-40 Alkaline Phosphatase 102 [iU]/L (Normal) Range: 39-117 Bilirubin, Direct 0.14 mg/dL (Normal) Range: 0.00-0.40 Bilirubin, Total 0.7 mg/dL (Normal) Range: 0.0-1.2 Albumin 4.4 g/dL (Normal) Range: 3.5-4.8 Protein, Total 6.7 g/dL (Normal) Range: 6.0-8.5 90-Xdx-09407:24 LIPOPROTEIN, BLD, BY NMR Comments: PATIENT WAS FASTINGPERFORMED BY: BN [facility] Rnzkawjlmt4066 [facility] [id number] BY: CB [facility] Odbncs8653 [facility] [id number]; fu 8-20 DB (38663) LP-IR Score 64 (Abnormal) Comments: INSULIN RESISTANCE MARKER <--Insulin Sensitive Insulin Resistant--> Percentile in Reference PopulationInsulin Resistance ScoreLP-IR Score Low 25th 50th 75th High <27 27 45 63 >63LP-IR Score is inaccurate if patient is non-fasting. .The LP-IR score is a laboratory developed i [facility] that has beenassociated with insulin resistance and [...] were developed and their performance characteristicsdetermined by [employer]. These assays have not been cleared [...] 1600 - 2000 Very High > 2000 80-Gqi-233698:19 Basic Metabolic Profile (BMP) Comments: Order Date: 07/30/17Order Info: 0667-1 - [facility] [address] [place], [address] GAP 10 (Normal) Range: 5-15 CO2 27.0 [...] A.D.A. criteria.Please note revised GLUCOSE reference range ksvoftzjp81/02/2018. 18-Vkl-786395:19 CBC W/Diff, Automated Comments: Order Date: 07/30/17Order Info: 0184-1 - CBCDOrder Info: 23895-5 [facility] Rdohurogzz[address] [place], [place], [address] Absolute Lymph 2.02 {X10_3/ul} (Normal) Range: 0.83-4.51 [...] 4.2-5.4 WBC 10.0 K/mm3 (Normal) Range: 4.4-11.0 50-Rvr-981260:19 Erythrocyte Sed Rate Comments: Order Date: 07/30/17Order Info: 0184-1 - CBCDOrder Info: 72609-7 - [facility] Pcalykvngj[address] [place], [place], [address] SED RATE 26 mm/h (Normal) Range: 0-30 21-Sbv-954297:59 Urinalysis, Office (03334) UA - LEUKOCYTE ESTERASE Negative (Normal) UA - NITRITE Negative (Normal) URINE UROBILINGN SILVESTRE TIMED Normal mg/dL (Normal) UA - PROTEIN Negative mg/dL (Normal) UA - PH 7 (Normal) UA - BLOOD Negative (Normal) UA - SPECIFIC GRAVITY 1.015 (Normal) UA - KETONES Negative mg/dL (Normal) UA - BILIRUBIN Negative (Normal) UA - GLUCOSE Negative (Normal) 8-Mcn-277568:01 Basic Metabolic Profile (BMP) Comments: [facility] [address] [place], [place], [address] GAP 7 (Normal) Range: 5-15 CO2 26.0 [...] Comments: Please note revised GLUCOSE reference range jsraydhqt51/02/2018. 0-Ffv-616267:01 CBC-Complete Blood Cnt No Diff Comments: [facility] [address]ch[address] [place], [place], [address] MPV 10.5 fL (Normal) Range: 6.2-12.0 PLT [...] Range: 4.4-11.0 :01 Prothrombin Time w/INR Comments: [facility] [address]sgcymh[address] [place], [place], [address] INR 1.0 (Normal) PROTIME 12.7 s (Normal) Range: 11.7-14.9 8-Xju-774436:01 Urinalysis, Complete Comments: How was Urine Obtained? DOOR PULLER TO [facility] Fkx[address]hewnbn[address] [place], [place], [address] MUCUS, URINE 0 SEEN {/hpf} (Normal) BACTERIA [...] (Normal) CLARITY Clear (Normal) COLOR Yellow (Normal) 2-Qlt-443232:37 Urinalysis, Office (20864) UA - LEUKOCYTE ESTERASE Negative (Normal) UA - NITRITE Negative (Normal) URINE UROBILINGN SILVESTRE TIMED 2 mg/dL (Normal) UA - PROTEIN Negative mg/dL (Normal) UA - PH 7.0 (Normal) UA - BLOOD Negative (Normal) UA - SPECIFIC GRAVITY 1.010 (Normal) UA - KETONES Negative mg/dL (Normal) UA - BILIRUBIN Negative (Normal) UA - GLUCOSE Negative (Normal) 10-Icr-219750:00 URINE RASHAD CULTURE-SILVESTRE COL Comments: PATIENT NOT FASTINGPERFORMED BY: [employer] Htakye1312 [facility] [id number] Information: SRC:UC COUNT (08094) Antimicrobial MIHEAD (Normal) Comments: S = Susceptible; [...] mL (Abnormal) Urine Final report Culture,Comprehensive (Abnormal) 14-Hmq-10787:06 Urinalysis, Office (24103) UA - LEUKOCYTE ESTERASE Large (Normal) UA [...] METABOLIC PANEL, Comments: PATIENT WAS FASTINGPERFORMED BY: [employer] [id number] BY: Geo SemiconductorRaymond Ville [address]70 [facility] [id number] COMPREHENSIVE (19760) ALT (SGPT) 45 [iU]/L (Abnormal) Range: 0-32 [...] Comments: PATIENT WAS FASTINGPERFORMED BY: BN [facility] [address] [id number] BY: CB [facility] Nzkspm6242 [facility] [id number] (58689) LP-IR Score 52 (Abnormal) Comments: INSULIN RESISTANCE MARKER <--Insulin Sensitive Insulin Resistant--> Percentile in Reference PopulationInsulin Resistance ScoreLP-IR Score Low 25th 50th 75th High <27 27 45 63 >63LP-IR Score is inaccurate if patient is non-fasting. .The LP-IR score is a laboratory developed i [facility] that has beenassociated with insulin resistance [...] were developed and their performance characteristicsdetermined by [employer]. These assays have not been cleared by [...] 2000 Very High > 2000 23-Aug-20179:42 TSH (47101) Comments: PATIENT WAS FASTINGPERFORMED BY: [facility] [id number] BY: [facility] Hhwyli9759 Xavier RoadDublin [place] [id number] TSH 2.070 {uIU/mL} (Normal) Range: 0.450-4.500 8-Cgl-431250:34 Vitamin B-12 (cyanocobalamin) Comments: these ones today; PATIENT NOT FASTINGPERFORMED BY: Lab[address] [id number] BY: [facility] Sgrfbw2858 Xavier RoadDublin [place] [id number] (34095) Vitamin B12 677 pg/mL (Normal) Range: 211-946 1-Arx-030744:34 RPR (RAPID PLASMA Comments: PATIENT NOT FASTINGPERFORMED BY: [employer] [id number] BY: [facility] Gnpdfd8319 Xavier RoadDublin [place] [id number] REAGIN) (78061) RPR Non Reactive (Normal) 8-Jyz-056001:34 Methymalonic Acid, Serum Comments: PATIENT NOT FASTINGPERFORMED BY: [facility] [id number] BY: Lab[facility] Dogtok2426 Xavier RoadDublin [place] [id number] Information: G00479, 881855 (13819) Methylmalonic Acid, Serum 176 nmol/L (Normal) Range: 0-378 9-Ekr-738443:18 HEPATIC FUNCTION PANEL Comments: PATIENT WAS FASTINGPERFORMED BY: [address] [id number] BY: [facility] Stjapw0969 Xavier RoadDublin [place] [id number] (01621) ALT (SGPT) 36 [iU]/L (Abnormal) Range: 0-32 AST (SGOT) 32 [iU]/L (Normal) Range: 0-40 Alkaline Phosphatase, S 104 [iU]/L (Normal) Range: 39-117 Bilirubin, Direct 0.13 mg/dL (Normal) Range: 0.00-0.40 Bilirubin, Total 0.5 mg/dL (Normal) Range: 0.0-1.2 Albumin, Serum 4.6 g/dL (Normal) Range: 3.5-4.8 Protein, Total, Serum 6.7 g/dL (Normal) Range: 6.0-8.5 9-Gag-268599:18 LIPOPROTEIN, BLD, BY NMR Comments: PATIENT WAS FASTINGPERFORMED BY: BN [facility] Wrpacjsuno1496 [facility] [id number] BY: CB [facility] Fufmjp4037 [facility] [id number] (84161) LP-IR Score 66 (Abnormal) Comments: INSULIN RESISTANCE MARKER <--Insulin Sensitive Insulin Resistant--> Percentile in Reference PopulationInsulin Resistance ScoreLP-IR Score Low 25th 50th 75th High <27 27 45 63 >63LP-IR Score is inaccurate if patient is non-fasting. .The LP-IR score is a laboratory developed i [facility] that has beenassociated with insulin resistance and [...] 1600 - 2000 Very High > 2000 41-Hxw-396669:25 CBC With Differential/Platelet Comments: PATIENT NOT FASTINGPERFORMED BY: LabM[facility] Egsdya6989 [facility] [id number] Information: collect by nurse SRC: Immature Grans [...] 3.77-5.28 WBC 6.9 {x10E3/uL} (Normal) Range: 3.4-10.8 16-Qjn-482896:25 Comp. Metabolic Panel (14) Comments: PATIENT NOT FASTINGPERFORMED BY: LabCoSaint Peter's University HospitalYvfvsj5609 [facility] [id number] ALT (SGPT) 37 [iU]/L (Abnormal) Range: 0-32 [...] umol/L (Normal) Comments: PATIENT NOT FASTINGPERFORMED BY: [employer] Uvxfnx1057 [facility] InnovationsAt[facility] [id number] 0:25 Plasma Range: 0.0-15.0 Microalb/Creat Ratio, Randm Ur Comments: PATIENT NOT FASTINGPERFORMED BY: [employer] Bphywt5225SlingrAtrium Health Pineville Rehabilitation Hospital [id number] Microalb/Creat Ratio <5.6 {mg/g_creat} (Normal) Range: 0.0-30.0 Microalbumin, Urine <3.0 ug/mL (Normal) Creatinine, Urine 53.7 mg/dL (Normal) : Urinalysis, Routine Comments: PATIENT NOT FASTINGPERFORMED BY: ImmunoPhotonicsBarnes[facility] [id number] Microscopic Examination MICNIP (Normal) Comments: Microscopic not indicated and not performed. Nitrite, Urine Negative (Normal) Urobilinogen,Semi-Qn 0.2 mg/dL (Normal) Range: 0.2-1.0 Bilirubin Negative (Normal) Occult Blood Negative (Normal) Ketones Negative (Normal) Glucose Negative (Normal) Protein Negative (Normal) WBC Esterase Negative (Normal) Appearance Clear (Normal) Urine-Color Yellow (Normal) pH 7.0 (Normal) Range: 5.0-7.5 Specific [place] 1.014 (Normal) Range: 1.005-1.030 : Urine Culture, Routine Comments: PATIENT NOT FASTINGPERFORMED BY: [employer] Bpuecx5625 XavierBarnes-[facility] [id number] Result 1 LESS (Normal) Comments: Culture shows less than 10,000 colony forming units of bacteria permilliliter of urine. This colony count is not generally consideredto be clinically significant. Urine Culture, Routine Final report (Normal) 21-Igz-442260:59 URINE RASHAD CULTURE-IDENTIFICATN Comments: PATIENT NOT FASTINGPERFORMED BY: [facility]6370 [facility] [id number] Information: SRC: (22846) Antimicrobial MIHEAD (Normal) Comments: S = Susceptible; [...] mL (Abnormal) Urine Final report Culture,Comprehensive (Abnormal) 5-Wky-360382:01 URINE RASHAD CULTURE-IDENTIFICATN Comments: PATIENT NOT FASTINGPERFORMED BY: [place] 1077270 [facility] [id number] Information: SRC: (42090) Result 1 NG36 (Normal) Comments: No growth in 36 - 48 hours. Urine Culture,Comprehensive Final report (Normal) 19-Nov-20169:11 Urinalysis, Office (40206) UA - LEUKOCYTE ESTERASE Large (Normal) UA - NITRITE Positive (Normal) URINE UROBILINGN SILVESTRE TIMED 2 mg/dL (Normal) UA - PROTEIN 30 mg/dL (Normal) UA - PH 6 (Abnormal) UA - BLOOD Negative (Normal) UA - SPECIFIC GRAVITY 1.005 (Normal) UA - KETONES 15 mg/dL (Abnormal) UA - BILIRUBIN Large (Normal) UA - GLUCOSE 100 (Abnormal) 56-Uqo-64230:16 CBC W/Diff, Automated Comments: [facility] [address]fwti[address] [place], [address] Absolute Lymph 1.78 {X10_3/ul} (Normal) Range: 0.83-4.51 [...] 4.2-5.4 WBC 5.7 K/mm3 (Normal) Range: 4.4-11.0 9-Yrd-514257:00 HSV CULTURE SCREEN [id number] Comments: PERFORMED BY: [employer] [facility] [id number] Information: SRC:OFE (38940) HSV Culture Without Typing Negative (Normal) 28-Pki-564696:58 URINE RASHAD CULTURE-IDENTIFICATN Comments: PATIENT NOT FASTINGPERFORMED BY: [employer] Sitemasher [facility] [id number] Information: SRC:ADWOA (88671) Antimicrobial MIHEAD (Normal) Comments: S = Susceptible; [...] mL (Abnormal) Urine Final report Culture,Comprehensive (Abnormal) 38-Qbr-17860:21 Urinalysis, Office (09098) UA - LEUKOCYTE ESTERASE Moderate (Normal) UA - NITRITE Negative (Normal) URINE UROBILINGN SILVESTRE TIMED 2 mg/dL (Normal) UA - PROTEIN 30 mg/dL (Normal) UA - PH 6.0 (Normal) UA - BLOOD Hemolyzed Large (Normal) UA - SPECIFIC GRAVITY 1.020 (Normal) UA - KETONES Negative mg/dL (Normal) UA - BILIRUBIN Negative (Normal) UA - GLUCOSE Negative (Normal) :32 HgA1C , Office (76566) HgA1C , Office 5.4 % (Normal) Range: 4.6 - 7.1 :36 T4, FREE (THYROXINE) (45435) Comments: PATIENT NOT FASTINGPERFORMED BY: Geo SemiconductorSanta Fe Indian HospitalKrrlbh3440 [facility] [id number] T4,Free(Direct) 1.34 ng/dL (Normal) Range: 0.82-1.77 48-Iyq-353808:36 TSH (50968) Comments: PATIENT NOT FASTINGPERFORMED BY: [employer] Sitemasher [facility] [id number] TSH 2.400 {uIU/mL} (Normal) Range: 0.450-4.500 58-Eii-159777:36 HEPATIC FUNCTION PANEL Comments: PATIENT NOT FASTINGPERFORMED BY: [employer] Sitemasher [facility] [id number] (31411) ALT (SGPT) 59 [iU]/L (Abnormal) Range: 0-32 AST (SGOT) 35 [iU]/L (Normal) Range: 0-40 Alkaline Phosphatase, S 96 [iU]/L (Normal) Range: 39-117 Bilirubin, Direct 0.15 mg/dL (Normal) Range: 0.00-0.40 Comments: Please note reference interval change Bilirubin, Total 0.6 mg/dL (Normal) Range: 0.0-1.2 Albumin, Serum 4.4 g/dL (Normal) Range: 3.5-4.8 Protein, Total, Serum 6.5 g/dL (Normal) Range: 6.0-8.5 :36 Magnesium (13223) Comments: PATIENT NOT FASTINGPERFORMED BY: Geo SemiconductorSaint Peter's University HospitalQzeppa1935[address] [place] [address] [id number] Magnesium, Serum 2.0 mg/dL (Normal) Range: 1.6-2.3 :36 Metabolic Panel, Basic Comments: PATIENT NOT FASTINGPERFORMED BY: Geo SemiconductorSaint Peter's University HospitalTmqkwz4[address] [place] [address] [id number] (01675) Calcium, Serum 9.9 mg/dL (Normal) Range: 8.7-10.3 [...] three months (approximately); PATIENT WAS FASTINGPERFORMED BY: [facility] CenterAmanda V[place] 282227 [facility] [id number] BY: [facility] CenterNicole [place]ille 6521670 [facility] [id number] (35020) T4,Free(Direct) 1.23 ng/dL (Normal) Range: 0.82-1.77 :32 TSH (74747) Comments: in three months (approximately); PATIENT WAS FASTINGPERFORMED BY: [employer] LabCoFileblaze [address] [id number] BY: LabCoSaint Peter's University HospitalBzgefm2875 [facility] [id number] TSH 3.620 {uIU/mL} (Normal) Range: 0.450-4.500 :32 LIPOPROTEIN, BLD, BY NMR Comments: in three months (approximately); PATIENT WAS FASTINGPERFORMED BY: [employer] [facility] Qwnweuurbj[address] [id number] BY: LabInhibOxNerjne5397 [facility] [id number] (25887) LP-IR Score 77 (Abnormal) Comments: INSULIN RESISTANCE MARKER <--Insulin Sensitive Insulin Resistant--> Percentile in Reference PopulationInsulin Resistance ScoreLP-IR Score Low 25th 50th 75th High <27 27 45 63 >63LP-IR Score is inaccurate if patient is non-fasting. .The LP-IR score is a laboratory developed i [facility] that has beenassociated with insulin resistance and [...] 1600 - 2000 Very High > 2000 40-Snr-674776:10 HEPATIC FUNCTION PANEL Comments: in three months (approximately); PATIENT NOT FASTINGPERFORMED BY: LabCoSaint Peter's University HospitalSzshjd8683 [facility] [id number] (60760) ALT (SGPT) 112 [iU]/L (Abnormal) Range: 0-32 [...] three months (approximately); PATIENT WAS FASTINGPERFORMED BY: [employer] [id number] BY: [employer] MediaMogulFormerly [facility] [id number] (01696) Homocyst(e)ine, Plasma 9.3 umol/L (Normal) Range: 0.0-15.0 21-Lje-977051:10 HEPATITIS PANEL (34499) Comments: today do; PATIENT NOT FASTINGPERFORMED BY: Xiaoi Robert70 [employer] [facility] CenterNight Node SoftwareFormerly [facility] [id number] Hep C Virus Ab 0.2 {s/co_ratio} (Normal) Range: 0.0-0.9 Comments: Negative: < 0.8 Indeterminate: 0.8 - 0.9 Positive: > 0.9 . The CDC recommends that a positive HCV antibody result be followed up with a HCV Nucleic Acid Amplification test (682483). Hep B Core Ab, IgM Negative (Normal) HBsAg Screen Negative (Normal) Hep A Ab, IgM Negative (Normal) :32 HEPATIC FUNCTION PANEL Comments: send copy to Dr. dejesus. do today; PATIENT WAS FASTINGPERFORMED BY: [employer] [address] [id number] BY: [employer] Ohtnec8949 [facility] [id number]; apt today DB (07961) ALT (SGPT) 43 [iU]/L (Abnormal) Range: 0-32 AST (SGOT) 33 [iU]/L (Normal) Range: 0-40 Alkaline Phosphatase, S 98 [iU]/L (Normal) Range: 39-117 Bilirubin, Direct 0.14 mg/dL (Normal) Range: 0.00-0.40 Bilirubin, Total 0.5 mg/dL (Normal) Range: 0.0-1.2 Albumin, Serum 4.2 g/dL (Normal) Range: 3.5-4.8 Protein, Total, Serum 6.3 g/dL (Normal) Range: 6.0-8.5 90-Sxm-507721:48 HgA1C , Office (47814) HgA1C , Office 5.7 % (Normal) Range: 4.6 - 7.1 88-Ygp-432279:34 FERRITIN (27926) Comments: PATIENT NOT FASTINGPERFORMED BY: [employer] [place] BeerAtrium Health [facility] [id number] Ferritin, Serum 246 ng/mL (Abnormal) Range: 15-150 16-Lah-563475:34 CERULOPLASMIN (57149) Comments: PATIENT NOT FASTINGPERFORMED BY: Tutor TroveFormerly [facility] [id number] Ceruloplasmin 24.7 mg/dL (Normal) Range: 19.0-39.0 :34 ASM (ANTI SMOOTH MUSCLE Comments: PATIENT NOT FASTINGPERFORMED BY: NeuroMetrix Xavier Intellon CorporationAtrium Health Pineville Rehabilitation Hospital [id number] ANTIBODY) (34008) Actin (Smooth Muscle) Antibody 7 {Units} (Normal) Range: 0-19 Comments: Negative 0 - 19 Weak positive 20 - 30 Moderate to strong positive >30 . Actin Antibodies are found in 52-85% of patients with autoimmune hepatitis or chronic active hepatitis and in 22% of patients with primary biliary cirrhosis. 23-Llz-954649:34 ANTI-LIVER/KIDNEY MICROSOMAL Comments: PATIENT NOT FASTINGPERFORMED BY: Tutor TroveFormerly [facility] [id number] ANTIBODY (84577) Thyroid Peroxidase (TPO) Ab 9 {IU/mL} (Normal) Range: 0-34 34-Mrt-760953:34 JESS (ANTINUCLEAR ANTIBODY) Comments: PATIENT NOT FASTINGPERFORMED BY: ImmunoPhotonicsox BionovoFormerly [facility] [id number] (76673) JESS Direct Negative (Normal) :33 Microscopic Examination Comments: PATIENT WAS FASTINGPERFORMED BY: Tutor TroveFormerly [facility] [id number] Bacteria Few (Normal) Mucus Threads Present (Normal) Epithelial Cells (non renal) 0-10 {/hpf} (Normal) Range: 0 - 10 RBC 0-2 {/hpf} (Normal) Range: 0 - 2 WBC 0-5 {/hpf} (Normal) Range: 0 - 5 16-Iso-310840:51 Rapid Flu (32472 x 2) Influenza A Ag neg a and b (Normal) 4-Szu-461828:20 URINE RASHAD CULTURE-IDENTIFICATN Comments: PATIENT NOT FASTINGPERFORMED BY: [facility]Co Ukexxu3420 [facility] [id number] Information: [id number] (38422) Antimicrobial MIHEAD (Normal) Comments: S = Susceptible; [...] Final report Culture,Comprehensive (Abnormal) :18 Urinalysis, Office (62559) UA - GLUCOSE Negative (Normal) UA - BILIRUBIN Negative (Normal) UA - KETONES Negative mg/dL (Normal) UA - SPECIFIC GRAVITY 1.010 (Normal) UA - BLOOD Hemolyzed Trace (Normal) UA - PH 5 (Abnormal) UA - PROTEIN Negative mg/dL (Normal) URINE UROBILINGN SILVESTRE TIMED Normal mg/dL (Normal) UA - NITRITE Positive (Normal) UA - LEUKOCYTE ESTERASE Trace (Normal) :33 URINALYSIS, W/ MICRO (98609) Comments: PATIENT WAS FASTINGPERFORMED BY: [facility] Dvfupu8790 [facility] [id number] Microscopic Examination See below: (Normal) Comments: Microscopic was indicated and was performed. Nitrite, Urine Negative (Normal) Urobilinogen,Semi-Qn 0.2 mg/dL (Normal) Range: 0.2-1.0 Bilirubin Negative (Normal) Occult Blood Negative (Normal) Ketones Negative (Normal) Glucose Negative (Normal) Protein Negative (Normal) WBC Esterase 1+ (Abnormal) Appearance Clear (Normal) Urine-Color Yellow (Normal) pH 7.0 (Normal) Range: 5.0-7.5 Specific [place] 1.016 (Normal) Range: 1.005-1.030 :33 METABOLIC PANEL, COMPREHENSIVE Comments: PATIENT WAS FASTINGPERFORMED BY: LabPont[facility] Hospital6370 [facility] [id number] (94267) ALT (SGPT) 51 [iU]/L (Abnormal) Range: 0-32 [...] mg/dL (Abnormal) Range: 65-99 :33 LIPID PANEL (60426) Comments: PATIENT WAS FASTINGPERFORMED BY: Geo SemiconductorSaint Peter's University HospitalPpthuk0126 [facility] [id number] LDL/HDL Ratio 3.8 {ratio_units} (Abnormal) Range: 0.0-3.2 [...] Cholesterol, Total 208 mg/dL (Abnormal) Range: 100-199 37-Wuz-54458:33 CBC with auto diff Comments: PATIENT WAS FASTINGPERFORMED BY: Geo SemiconductorSaint Peter's University HospitalOxxzft9710 [facility] [id number] Information: [id number]; apt. 5-24 (25752) Immature Grans (Abs) 0.0 {x10E3/uL} (Normal) Range: [...] (Normal) Range: 3.4-10.8 :48 HgA1C , Office (32245) HgA1C , Office 6.3 % (Normal) Range: 4.6 - 7.1 :59 METABOLIC PANEL, COMPREHENSIVE Comments: PATIENT WAS FASTINGPERFORMED BY: LabCoSaint Peter's University HospitalIfpwge0649 [facility] [id number] (34691) ALT (SGPT) 44 [iU]/L (Abnormal) Range: 0-32 [...] mg/dL (Abnormal) Range: 65-99 :59 LIPID PANEL (05372) Comments: PATIENT WAS FASTINGPERFORMED BY: [facility]6370 [facility] [id number] LDL/HDL Ratio 4.1 {ratio_units} (Abnormal) Range: 0.0-3.2 [...] auto diff Comments: PATIENT WAS FASTINGPERFORMED BY: LabCoSaint Peter's University HospitalMtaidn1313 [facility] [id number] Information: [id number] (88466) Immature Grans (Abs) 0.0 {x10E3/uL} (Normal) Range: [...] {x10E3/uL} (Normal) Range: 3.4-10.8 :55 Urinalysis, Office (14442) UA - LEUKOCYTE ESTERASE Small (Normal) UA - NITRITE Negative (Normal) URINE UROBILINGN SILVESTRE TIMED Normal mg/dL (Normal) UA - PROTEIN Negative mg/dL (Normal) UA - PH 7 (Normal) UA - BLOOD Negative (Normal) UA - SPECIFIC GRAVITY 1.010 (Normal) UA - KETONES Negative mg/dL (Normal) UA - BILIRUBIN Negative (Normal) UA - GLUCOSE Negative (Normal) :45 CBC W/Diff, Automated Comments: Test performed at:[facility] Fuoalnhgnk[address] [place], [place] [address] Absolute Lymph 2.36 {X10_3/ul} (Normal) Range: 0.83-4.51 [...] 4.2-5.4 WBC 13.0 K/mm3 (Abnormal) Range: 4.4-11.0 12-Ajo-09117:45 Comprehensive Metabolic Profil Comments: Test performed at:[facility] [address]ik[address]ioj[address] [place] [address] GAP 5 (Normal) Range: 5-15 CO2 27.0 [...] Comments: Please note revised CREATININE reference range /22/2015. BUN 15 mg/dL (Normal) Range: 7-18 GLU 134 mg/dL (Abnormal) Range: 70-110 Comments: Fasting Glucose result greater than or equal to 126 mg/dLsuggests DIABETES MELLITUS per A.D.A. criteria. :45 Lipase Comments: Test performed at:[facility] Usekbevzow1555 [facility] [place] [address] LIPASE 215 U/L (Normal) Range: 73-393 :32 Urinalysis, Complete Comments: Order Date: 12/16/14How was Urine Obtained? CLEAN CATCHTest performed at:[facility] [address] [place] [address] MUCUS, URINE 0 SEEN {/hpf} [...] Comprehensive Comments: PATIENT NOT FASTINGPERFORMED BY: [facility] Qcowxs9247 [place] [id number] (63368) ALT (SGPT) 44 [iU]/L (Abnormal) Range: 0-32 [...] Glucose, Serum 106 mg/dL (Abnormal) Range: 65-99 23-Wwg-70990:31 CBC, Platelets & Auto Diff Comments: PATIENT NOT FASTINGPERFORMED BY: LabCoSaint Peter's University HospitalYdnydj3857 [facility] [id number] Information: [id number] (30753) Immature Grans (Abs) 0.0 {x10E3/uL} (Normal) Range: [...] {x10E3/uL} (Normal) Range: 3.4-10.8 :05 Rapid Flu (04635 x 2) Comments: pos A Influenza A Ag positive A (Normal) :55 YKHEK-TBLBMOMKSAC-GIYSA (04486) Comments: today; PATIENT NOT FASTINGPERFORMED BY: Geo SemiconductorSaint Peter's University HospitalXyxhnu2262 [facility] [id number] AFP, Serum, Tumor Marker 5.4 ng/mL (Normal) Range: 0.0-8.3 Comments: Bombfell ECLIA methodology :55 HEPATITIS PANEL (01215) Comments: today; PATIENT NOT FASTINGPERFORMED BY: [facility]6370 [facility] [id number] Information: [id number] Hep C Virus Ab <0.1 {s/co_ratio} (Normal) Range: 0.0-0.9 Comments: Negative: < 0.8 Indeterminate: 0.8 - 0.9 Positive: > 0.9 . In order to reduce the incidence of a false positive result, the CDC recommends that all s/co ratios between 1.0 and 10.9 be confirmed by a more specific supplemental or PCR testing. [facility] offers HCV Ab w/Reflex to Verification test #[id number]. Hep B Core Ab, IgM Negative (Normal) HBsAg Screen Negative (Normal) Hep A Ab, IgM Negative (Normal) :21 HEPATIC FUNCTION PANEL Comments: repeat in 6 weeks around ; PATIENT NOT FASTINGPERFORMED BY: [facility] [place] [address] [id number] Information: [id number] (27792) ALT (SGPT) 38 [iU]/L (Abnormal) Range: 0-32 AST (SGOT) 28 [iU]/L (Normal) Range: 0-40 Alkaline Phosphatase, S 124 [iU]/L (Abnormal) Range: 39-117 Bilirubin, Direct 0.15 mg/dL (Normal) Range: 0.00-0.40 Bilirubin, Total 0.6 mg/dL (Normal) Range: 0.0-1.2 Albumin, Serum 4.2 g/dL (Normal) Range: 3.5-4.8 Protein, Total, Serum 6.5 g/dL (Normal) Range: 6.0-8.5 :09 Microscopic Examination Comments: PATIENT WAS FASTINGPERFORMED BY: [facility]6370 [facility] [id number] Bacteria Few (Normal) Epithelial Cells (non renal) 0-10 {/hpf} (Normal) Range: 0 - 10 RBC 0-2 {/hpf} (Normal) Range: 0 - 2 WBC 11-30 {/hpf} (Abnormal) Range: 0 - 5 24-Amv-224074:50 HgA1C , Office (90220) HgA1C , Office 5.8 % (Normal) Range: 4.6 - 7.1 :09 URINALYSIS, W/ MICRO (73041) Comments: PATIENT WAS FASTINGPERFORMED BY: [place] 1077270 [facility] [id number] Microscopic Examination See below: (Normal) Comments: Microscopic was indicated and was performed. Nitrite, Urine Negative (Normal) Urobilinogen,Semi-Qn 0.2 mg/dL (Normal) Range: 0.0-1.9 Bilirubin Negative (Normal) Occult Blood Negative (Normal) Ketones Negative (Normal) Glucose Negative (Normal) Protein Negative (Normal) WBC Esterase 3+ (Abnormal) Appearance Clear (Normal) Urine-Color Yellow (Normal) pH 7.0 (Normal) Range: 5.0-7.5 Specific [place] 1.014 (Normal) Range: 1.005-1.030 :09 METABOLIC PANEL, COMPREHENSIVE Comments: PATIENT WAS FASTINGPERFORMED BY: [facility]6370 [facility] [id number] (73239) ALT (SGPT) 41 [iU]/L (Abnormal) Range: 0-32 [...] of serum to cells. :09 LIPID PANEL (18001) Comments: PATIENT WAS FASTINGPERFORMED BY: Geo SemiconductorSaint Peter's University HospitalCiyqjx4108 [facility] [id number] VLDL Cholesterol Kelsi VLDLCH mg/dL (Normal) Range: [...] Cholesterol, Total 233 mg/dL (Abnormal) Range: 100-199 48-Bdp-489699:09 CBC W/AUTO DIFF WBC Comments: PATIENT WAS FASTINGPERFORMED BY: [employer]6370 [facility] [id number] Information: [id number] (67543) Immature Grans (Abs) 0.0 {x10E3/uL} (Normal) Range: [...] CREATININE RATIO Comments: PATIENT WAS FASTINGPERFORMED BY: [employer]6370 [facility] CenterNight Node SoftwareFormerly [facility] [id number] (63004) AND (10349) Microalb/Creat Ratio 2.7 {mg/g_creat} (Normal) Range: 0.0-30.0 Microalbumin, Urine 1.5 ug/mL (Normal) Range: 0.0-17.0 Creatinine, Urine 54.8 mg/dL (Normal) Range: 15.0-278.0 :39 METABOLIC PANEL, COMPREHENSIVE Comments: PATIENT WAS FASTINGPERFORMED BY: Xiaoi Robert70 LeKioskFormerly [facility] [id number] (18799) ALT (SGPT) 41 [iU]/L (Abnormal) Range: 0-32 [...] mg/dL (Abnormal) Range: 65-99 :39 LIPID PANEL (43610) Comments: PATIENT WAS FASTINGPERFORMED BY: Xiaoi Robert70 [facility] [id number] VLDL Cholesterol Kelsi VLDLCH mg/dL (Normal) Range: [...] MANUAL DIFF Comments: PATIENT WAS FASTINGPERFORMED BY: [employer]6370 [facility] [id number] Information: [id number] (54841) Immature Grans (Abs) 0.0 {x10E3/uL} (Normal) Range: [...] in 8 weeks; PATIENT WAS FASTINGPERFORMED BY: [employer]70 [facility]yline InnovationsAt[facility] [id number] (80258) Bilirubin, Direct 0.12 mg/dL (Normal) Range: 0.00-0.40 :35 Blood Glucose , Office (04516) Blood Glucose , Office 161 (Normal) :35 HgA1C , Office (25486) HgA1C , Office 5.6 % (Normal) Range: 4.6 - 7.1 :36 TSH (12489) Comments: Forward to Dr Avery Cobb, [place] [phone]; PATIENT WAS FASTINGPERFORMED BY: LabHabbitsrp Zbpcjt5645 [facility] Hospitalin [place] [id number] TSH 2.620 {uIU/mL} (Normal) Range: 0.450-4.500 :36 CBC with manual diff Comments: Forward to Dr Avery Cbob, [place] [phone]; PATIENT WAS FASTINGPERFORMED BY: [facility] Yaciqj9202 [facility] [id number] Informat ion: [id number] CC:[id number] (58673) Immature Grans (Abs) 0.0 {x10E3/uL} (Normal) Range: [...] Comprehensive Comments: Forward to Dr Avery Cobb, [place], [phone]; PATIENT WAS FASTINGPERFORMED BY: [facility] Wxbcvd2608 [facility] [id number] (88700) ALT (SGPT) 33 [iU]/L (Abnormal) Range: 0-32 [...] Glucose, Serum 119 mg/dL (Abnormal) Range: 65-99 3-Zgu-247818:29 URINE RASHAD CULTURE-SILVESTRE COL Comments: PATIENT NOT FASTINGPERFORMED BY: [facility] Gvnclp4411 [facility] [id number] Information: SRC: [id number] COUNT (98853) Result 1 ENTEAE (Normal) Comments: Enterobacter aerogenes1,000 Colonies/mL S = Susceptible; I = Intermediate; R = Resistant P = Positive; N = Negative MICS are expressed in micrograms per mL A ntibiotic RSLT#1 RSLT#2 RSLT#3 RSLT#4Amoxicillin/Clavulanic Acid RCefazolin RCefepime SCeftriaxone SCefuroxime SCephalothin RCiprofloxacin SErtapenem SGentamicin SImipenem SLevofloxacin SNitrofurantoin RPiperacillin STetracycline STobramycin STrimethoprim/Sulfa S Urine Final report (Normal) Culture,Comprehensiv e 4-Yad-659167:14 Urinalysis, Office (30118) UA - LEUKOCYTE ESTERASE Large (Normal) UA - NITRITE Negative (Normal) URINE UROBILINGN SILVESTRE TIMED Normal mg/dL (Normal) UA - PROTEIN Negative mg/dL (Normal) UA - PH 7 (Normal) UA - BLOOD Hemolyzed Small (Normal) UA - SPECIFIC GRAVITY 1.015 (Normal) UA - KETONES Negative mg/dL (Normal) UA - BILIRUBIN Negative (Normal) UA - GLUCOSE Negative (Normal) 99-Ywk-907879:22 URINE RASHAD CULTURE-SILVESTRE COL Comments: PATIENT NOT FASTINGPERFORMED BY: [facility] Sptuol1073 [facility] [id number] Information: SRC:UR [id number] COUNT (58866) Antimicrobial MIHEAD (Normal) Comments: S = Susceptible; [...] mL (Normal) Urine Final report Culture,Comprehensive (Normal) 72-Rhr-984908:24 Urinalysis, Office (49895) UA - BILIRUBIN Negative (Normal) UA - BLOOD Negative (Normal) UA - GLUCOSE Negative (Normal) UA - KETONES Negative mg/dL (Normal) UA - LEUKOCYTE ESTERASE Trace (Normal) UA - NITRITE Negative (Normal) UA - PH 7.0 (Normal) UA - PROTEIN Negative mg/dL (Normal) UA - SPECIFIC GRAVITY 1.015 (Normal) URINE UROBILINGN SILVESTRE TIMED 2 mg/dL (Normal) 05-Yqo-14677:28 Metabolic Panel, Basic Comments: PATIENT NOT FASTINGPERFORMED BY: LabCoRaymond V[place] 8864870 [facility] [id number] Information: [id number] (60828) Calcium, Serum 10.1 mg/dL (Normal) Range: 8.6-10.2 [...] Glucose, Serum 94 mg/dL (Normal) Range: 65-99 50-Pah-72435:57 MAGNESIUM (78105) Comments: PATIENT NOT FASTINGPERFORMED BY: LabCoRaymond [place] 8864870 [facility] [id number] Magnesium, Serum 1.9 mg/dL (Normal) Range: 1.6-2.6 98-Kvd-83677:57 Metabolic Panel, Basic Comments: PATIENT NOT FASTINGPERFORMED BY: LabCoRaymond [place] 8864870 [facility] [id number] Information: ADD [id number] AND DRAW FEE 99 2860 (08240) Calcium, Serum 9.9 mg/dL (Normal) Range: 8.6-10.2 [...] function Panel Comments: PATIENT NOT FASTINGPERFORMED BY: [employer] Rkijwj3292 [facility] [id number] Information: [id number] (32835) Albumin, Serum 4.1 g/dL (Normal) Range: 3.5-4.8 [...] 101 mg/dL (Abnormal) Range: 65-99 :12 Magnesium (54397) Comments: PATIENT NOT FASTINGPERFORMED BY: Geo SemiconductorSaint Peter's University HospitalOxzubq5180 [facility] [id number] Magnesium, Serum 1.7 mg/dL (Normal) Range: 1.6-2.6 44-Xoy-189870:08 KNEE 4 OR MORE VIEWS Radiology See [...] Alvares M.D.December 05, 2012 at 11:41:24 AM [id number] Signed GP/GP If you are the referring physician and would like to consult with th eradiologist who provided this interpretation, please contact Maurilio Miller at [phone]. If this radiologist is unavailable, youwill be directed to another radiologist to assist. If you ar e a patient with a question regarding this report, pleasecontactyour referring physician directly. Professional Interpretation Provided By: [employer], Phone , These docum ents contain legally [...] 12/05/12 1459 Sign by: Archie Alvares MD 48-Mkp-74983:20 RENAL FUNCTION PANEL Comments: PATIENT NOT FASTINGPERFORMED BY: [facility]6370 [facility] [id number] Information: [id number] (84930) Albumin, Serum 4.5 g/dL (Normal) Range: 3.5-4.8 [...] Glucose, Serum 131 mg/dL (Abnormal) Range: 65-99 57-Jrs-001776:58 Nuclear Stress Test Radiology Report See Note [...] 11/30/12 1458 by THIERRY MS,HOLLYSign by Lonnie NUNEZ,[place] on 12/02/12 1640 Sign by: Lonnie NUNEZ,Brennan 58-Xib-186554:24 Metabolic Panel, Basic Comments: PATIENT NOT FASTINGPERFORMED BY: Varol[place] [id number] Information: [id number] (04838) Calcium, Serum 9.6 mg/dL (Normal) Range: 8.6-10.2 [...] Glucose, Serum 96 mg/dL (Normal) Range: 65-99 60-Kvu-308948:24 MAGNESIUM (38243) Comments: PATIENT NOT FASTINGPERFORMED BY: [employer]6370 LeKioskFilmijob [place] [id number] Magnesium, Serum 2.1 mg/dL (Normal) Range: 1.6-2.6 [...] <0.05 NEGATIVE0.06 - 0.59 AT RISK OF OR> OR = 0.60 SUGGEST OR 0-Dxk-416481:23 TSH 1.27 {uIU/mL} (Normal) Range: 0.358-3.74 77-Pbc-005030:58 BILAT SCRN DIGITAL & CAD Radiology Report [...] Alvares M.D.June 08, 2012 at 2:30:29 PM [id number] Signed GP/GP If you are the referring physician and would like to consult with theradiologist who pro vided this interpretation, please contact Maurilio Miller at [phone]. If this radiologist is unavailable, youwill be directed to another radiologist to assist. If you are a patient with a q uestion regarding this report, pleasecontactyour referring physician directly. Professional Interpretation Provided By: [employer], Phone , These documents contain legally protected [...] 06/08/12 1437 Sign by: Archie Alvares MD 14-Gxo-21689:57 LIPID PANEL (97128) Comments: PATIENT WAS FASTINGPERFORMED BY: LabCoSanta Fe Indian HospitalTmpbeg9178 [facility] [id number] Information: [id number] VLDL Cholesterol Kelsi VLDLCH mg/dL (Normal) Range: [...] Cholesterol, Total 227 mg/dL (Abnormal) Range: 100-199 80-Bbb-769989:05 WRIST,MIN 3 VIEWS Radiology Report See Note [...] DS/NATALIE Profession al Interpretation Provided By: [facility] [employer], , To consult with a radiologist regarding this report, please call our [id number] line @ Dictated on 09/29/11 1133 by Janette Sykes DOscribed on 10/01/11 1001 by ITS IMPORTSign by Moses Sykes DO on 10/01/11 1002 Sign by: Moses Sykes DO 48-Dub-223280:47 MICROALBUMIN: CREATININE RATIO Comments: PATIENT WAS FASTINGPERFORMED BY: LabCoSaint Peter's University HospitalDbxjro7697 [facility] [id number] (98569) AND (72483) Microalb/Creat Ratio 2.6 {mg/g_creat} (Normal) Range: 0.0-30.0 Microalbumin, Urine 3.0 ug/mL (Normal) Range: 0.0-17.0 Creatinine, Urine 115.1 mg/dL (Normal) Range: 15.0-278.0 :47 METABOLIC PANEL, COMPREHENSIVE Comments: PATIENT WAS FASTINGPERFORMED BY: [employer]70 LeKioskFormerly [facility] [id number] (67465) ALT (SGPT) 46 [iU]/L (Abnormal) Range: 0-40 [...] mg/dL (Abnormal) Range: 65-99 :47 LIPID PANEL (48820) Comments: PATIENT WAS FASTINGPERFORMED BY: [employer]6370 LeKioskFormerly [facility] [id number] VLDL Cholesterol Kelsi VLDLCH mg/dL (Normal) Range: [...] Cholesterol, Total 195 mg/dL (Normal) Range: 100-199 40-Feh-574422:47 CBC WITH MANUAL DIFF Comments: PATIENT WAS FASTINGPERFORMED BY: LabCoSaint Peter's University HospitalJttyla8587 [facility] [id number] Information: [id number] (69197) Immature Grans (Abs) 0.0 {x10E3/uL} (Normal) Range: [...] change WBC 5.6 {x10E3/uL} (Normal) Range: 4.0-10.5 19-Ysd-527196:01 BILAT SCRN DIGITAL & CAD Radiology Report [...] radiologist regarding this report, please call our [id number] line @ Dictated on 05/19/11 1229 by Leonides Alvares MDscribed on 05/19/11 1407 by ITS IMPORTSign by Archie Alvares MD on 05/19/11 1408 Sign by: Archie Alvares MD 24-Mnw-327650:11 LIPID PANEL (34992) Comments: now and in six months (approximately); PERFORMED BY: [employer]6370 [facility] [id number] HDL Cholesterol 32 mg/dL (Abnormal) Comments: According [...] Comments: in six months (approximately); PERFORMED BY: [employer]6370 [facility] [id number] (68979) ALT (SGPT) 57 [iU]/L (Abnormal) Range: 0-40 [...] Glucose, Serum 102 mg/dL (Abnormal) Range: 65-99 6-Anh-699784:51 CHEST, PA AND LATERAL Radiology Report See [...] on 07/21/101935 Sign by: Archie Alvares MD 6-Jop-964395:14 Urinalysis, Office (24944) UA - BILIRUBIN Negative (Normal) UA - [...] <=16 S TRIMETHOPRIM/SULFAMETHOXAZO $ >=320 R EB-VCA [id number] < 0.2 {AI} Range: 0.0-0.8 :48 (Normal) Comments: Negative <0.9 Equivocal 0.9 - 1.0 Positive >1.0Performed at: [facility] Lab[address] [id number] Director: Mara Wilson MD, Phone: [phone] :48 ESR SED RATE 113 mm/h (Abnormal) Range: 0-30 :48 HEP-ABC [id number] HB CORE [id number] SeeNote (Normal) Comments: Result: Negative HEBSAB 6395 [...] COL Comments: PATIENT NOT FASTINGPERFORMED BY: [facility] Eqkxqe1259 [facility] [id number] Information: SRC: [id number] COUNT (03907) Antimicrobial MIHEAD (Normal) Comments: S = Susceptible; [...] organism was confirmed as an extended-spectrum beta-lactamase(ESBL) records management engineer. Despite apparent in vitro susceptibility topenicillins and cephalospor (Normal) ins, this organism may be clinicallyresistant to therapy with these agents and, per the CLSI (formerlyOHCLS), we have changed their results to indicate this. Urine Final report (Normal) Culture,Comprehensive 0-Mkj-910192:44 Urinalysis, Office (24961) UA - BILIRUBIN Negative (Normal) UA - [...] on 05/22/10 1538 Sign by: JOVANY ARAMBULA 45-Yxx-170687:24 Influenza A, H1N1, RT PCR Comments: PERFORMED BY: SHANNON [facility] [id number] BY: ILIR LabCoSaint Peter's University HospitalKfcpqi8721 [facility] [id number] Information: SRC:NL Subtype Novel H1N1 by Negative (Normal) PCR Type Influenza A by Negative (Normal) PCR Viral FLUABN (Normal) Comments: PERFORMED BY: Geo SemiconductorSt. Joseph's Regional Medical CenterNzwutitlix5819 [facility] [id number] BY: [facility]6370 [facility] [id number] Culture,Rapid,Influenz Comments: Negative:No Influenza A or B detected. a 98-Neo-976137:25 Influenza A Ag (67380) Influenza A Ag negative (Normal) 73-Pmm-513472:55 Urinalysis, Office (89552) UA - BILIRUBIN Negative (Normal) UA - BLOOD Negative (Normal) UA - GLUCOSE Trace (Normal) Comments: 100mg UA - KETONES Negative mg/dL (Normal) UA - LEUKOCYTE ESTERASE Small (Normal) UA - NITRITE Negative (Normal) UA - PH 7.0 (Normal) UA - PROTEIN Negative mg/dL (Normal) UA - SPECIFIC GRAVITY 1.015 (Normal) URINE UROBILINGN SILVESTRE TIMED 2 mg/dL (Normal) 3-Lve-448279:04 CBC with manual diff Comments: PATIENT NOT FASTINGPERFORMED BY: [place]ductorRay[place] [id number] [facility] [id number] Information: [id number] ([id number]) Immature Grans (Abs) 0.0 {x10E3/uL} (Normal) Range: [...] 3.80-5.10 WBC 6.4 {x10E3/uL} (Normal) Range: 4.0-10.5 4-Wkt-280556:04 Metabolic Panel, Comprehensive Comments: PATIENT NOT FASTINGPERFORMED BY: [facility]CoSaint [facility] HospitalQpmjrh3911 [facility] [id number] ([id number]) ALT (SGPT) 78 [iU]/L (Abnormal) Range: 0-40 [...] Glucose, Serum 105 mg/dL (Abnormal) Range: 65-99 02-Ldd-915488:07 BRAIN/HEAD WITHOUT CONTRAST Radiology Report See Note [...] on 03/11/10 0859 Sign by: JOVANY ARAMBULA 82-Asd-02104:00 CHEST, PA AND LATERAL Radiology Report See [...] STYLES on 03/12/10637 Sign by: BERTO STYLES 13-Wel-86777:00 RIBS UNIL 2V NO CXR Radiology Report [...] STYLES on 03/12/10637 Sign by: BERTO STYLES 5-Yrf-420516:04 Lower Respiratory Culture Comments: PERFORMED BY: [facility] Vusbqt1235 [facility] [id number] Information: SRC:SP Result 1 RRF (Normal) Comments: Routine respiratory ermelinda Lower Respiratory Culture Final report (Normal) 53-Qqw-454296:29 ETH TISS P-ETH (Normal) Comments: OPERATIONSeptoplasty, bilateral [...] / SJ: 09/10/09 TC:3REPORT SIGNED: SCOOTER SNYDER 09/12/0929-Aug-200939-Mou-192654:05 BMP BUN/CRE 20.0 {RATIO} (Normal) Range: 10-20 [...] 126 mg/dLsuggests DIABETES MELLITUS per A.D.A. criteria. 13-Yxb-356517:05 CBC MPV 7.1 fL (Normal) Range: 6.5-12.0 HCT 39.7 % (Normal) Range: 37-47 HGB 14.0 g/dL (Normal) Range: 12.0-16.0 MCH 31.3 pg (Normal) Range: 27.0-32.0 MCHC 35.3 g/dL (Normal) Range: 32-36 MCV 88.6 fL (Normal) Range: 81-99 PLT 232 K/mm3 (Normal) Range: 150-450 RBC 4.48 {M/mm3} (Normal) Range: 4.2-5.4 RDW 13.8 % (Normal) Range: 11.6-14.6 WBC 8.1 K/mm3 (Normal) Range: 4.4-11.0 5-Sli-430136:33 MICROALBUMIN: CREATININE RATIO Comments: PATIENT WAS FASTINGPERFORMED BY: [facility]CoSaint [facility] HospitalCnpbqy6374 [facility] [id number] ([id number]) AND ([id number]) Microalb/Creat Ratio 3.2 {mg/g_creat} (Normal) Range: 0.0-30.0 Creatinine, Urine 37.1 mg/dL (Normal) Range: 15.0-278.0 Microalbumin, Urine 1.2 ug/mL (Normal) Range: 0.0-17.0 0-Rdu-930347:33 METABOLIC PANEL, COMPREHENSIVE Comments: PATIENT WAS FASTINGPERFORMED BY: [facility]CoSaint [facility] HospitalCypaxf5541 [facility] [id number] ([id number]) ALT (SGPT) 33 [iU]/L (Normal) Range: 0-40 [...] mg/dL (Abnormal) Range: 65-99 :33 LIPID PANEL (79224) Comments: PATIENT WAS FASTINGPERFORMED BY: [facility] Mmtaef1567 [facility] [id number] LDL Cholesterol Calc 142 mg/dL (Abnormal) Range: 0-99 LDL/HDL Ratio 3.5 {ratio_units} (Abnormal) Range: 0.0-3.2 VLDL Cholesterol Kelsi 57 mg/dL (Abnormal) Range: 5-40 Cholesterol, Total 240 mg/dL (Abnormal) Range: 100-199 HDL Cholesterol 41 mg/dL (Normal) Comments: According to ATP-III Guidelines, HDL-C >59 mg/dL is considered anegative risk factor for CHD. Triglycerides 284 mg/dL (Abnormal) Range: 0-149 2-Rpk-317767:33 CBC WITH MANUAL DIFF Comments: PATIENT WAS FASTINGPERFORMED BY: [facility]6370 [facility] [id number] Information: [id number] ([id number]) Baso (Absolute) 0.0 {x10E3/uL} (Normal) Range: 0.0-0.2 [...] Report See Note (Normal) Comments: Exam Number: [id number] CT SCAN OF THE THORAX Multiple axial [...] left upper lobe. Reported By: ARCHIE ALVARES 06-Iaq-289896:05 PPD ([id number]) Comments: Lot #[id number]/Site-left forearmDose0.1 mlgiven by:[facility]; negative 18-Gyn-23699:18 TSH ([id number]) Comments: PATIENT WAS FASTINGPERFORMED BY: [facility] Ddlckf7848 [facility] [id number] TSH 1.234 {uIU/mL} (Normal) Range: 0.450-4.500 28-Zpv-20100:18 METABOLIC PANEL, COMPREHENSIVE Comments: PATIENT WAS FASTINGPERFORMED BY: [facility] Lvuvxi2160 [facility] [id number] ([id number]) A/G Ratio 1.4 (Normal) Range: 1.1-2.5 Albumin, [...] Serum 117 mg/dL (Abnormal) Range: 65-99 If -Dominican >59 mL/min/1.73 Comments: Note: Persistent reduction for [...] Sodium, Serum 141 mmol/L (Normal) Range: 135-145 45-Tpj-75675:18 LIPID PANEL (65048) Comments: PATIENT WAS FASTINGPERFORMED BY: [facility] [id number] Cholesterol, Total 206 mg/dL (Abnormal) Range: 100-199 [...] Cholesterol Kelsi 55 mg/dL (Abnormal) Range: 5-40 54-Iww-35431:18 CBC WITH MANUAL DIFF ([id number]) Comments: PATIENT WAS FASTINGClinical Information: ADD DRAW FEE [id number] ADD J 83377 PERFORMED BY: The Glampire GroupDublin [place] [id number] Baso (Absolute) 0.0 {x10E3/uL} (Normal) Range: 0.0-0.2 [...] 3+ ORGANISM 1: GROUP A BETA STREPTOCOCCUS 74-Iug-284542:26 MRSA DNA BY PCR MRSA RESULT SeeNote (Normal) Comments: Result: Negative 7-Xox-578852:25 COMP METABOLIC Comments: COMMENTS: NEW ADMIT A/G [...] T PROT 7.7 g/dL (Normal) Range: 6.4-8.2 67-Zgt-443060:10 MAMM, BILAT SCRN DIGITAL & CAD Radiology Report See Note (Normal) Comments: Exam Number: [id number] MAMMOGRAPHY, BILATERAL SCREENING DIGITAL AND CAD HISTORYRoutine [...] mammograms werealso examined with computer-aided detection software (ImageTruminim, Qifang.). Reported By: JOVANY ARAMBULA M.D. 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 Letter Indication: Afib Knee pain, right : [...] Indication: Well woman exam Planned Observations Ferritin ([id number])Indication: Elevated LFTs On: :05 Request HEPATIC FUNCTION PANEL (52591)Indication: Elevated LFTs On: :04 Request TJRWE-QXBVCKUUTXT-MGPLT ([id number])Indication: Elevated LFTs On: :04 Request METABOLIC PANEL, COMPREHENSIVE (45826)Indication: Hypercholesteremia On: 32-Cup-859330:41 Request LIPOPROTEIN, BLD, BY NMR (35962)Indication: Hypercholesteremia On: 17-Vuu-008615:41 Request Metabolic Panel, Basic (62498)Indication: Abdominal pain On: :25 Request CBC, Platelets & Auto Diff (47885)Indication: Abdominal pain On: 18-Aok-409835:24 Request Sed Rate Erythrocyte (44136)Indication: Abdominal pain On: 38-Fhi-418557:16 Request URINE RASAHD CULTURE-IDENTIFICATN (02750)Indication: Dysuria On: 64-Bpq-37279:35 Request MICROALBUMIN: CREATININE RATIO (56265) AND (93272)Indication: Hypertensive left ventricular hypertrophy On: :01 Request URINALYSIS (46634)Indication: Hypertensive left ventricular hypertrophy On: :01 Request CBC WITH MANUAL DIFF ([id number])Indication: Hypertensive left ventricular hypertrophy On: :01 Request Metabolic Panel, Comprehensive (28134)Indication: Elevated LFTs On: :01 Request URINE RASHAD CULTURE-IDENTIFICATN (06515)Indication: Urinary tract infection, site not specified On: :09 Request URINALYSIS (65652)Indication: Urinary tract infection, site not specified On: 19-Rtk-158127:09 Request URINALYSIS (58023)Indication: Dysuria On: 14-Xfn-658981:59 Request Homocysteine, Plasma (47041)Indication: MTHFR mutation On: 19-Nov-20169:24 Request Comments: follow up with in six months (approximately) CBC with auto diff (58278)Indication: Hematoma of hip, right, initial encounter On: :57 Request HEPATIC FUNCTION PANEL (74446)Indication: Hypercholesteremia On: 19-Vis-45405:37 Request Comments: 6 weeks HEPATITIS PANEL (55489)Indication: Elevated LFTs On: 26-Qcw-883844:30 Request URINALYSIS, W/ MICRO (68076)Indication: Hypertensive left ventricular hypertrophy On: :49 Request METABOLIC PANEL, COMPREHENSIVE (73953)Indication: Hypertensive left ventricular hypertrophy On: :49 Request LIPID PANEL (35396)Indication: Hypertensive left ventricular hypertrophy On: :49 Request CBC with auto diff (02159)Indication: Hypertensive left ventricular hypertrophy On: :49 Request HgA1C , Office (31713)Indication: Impaired fasting glucose On: 99-Qcg-68317:47 Request Lipid Panel (45620)Indication: Afib On: 10-Idu-086018:21 Request Comments: copy to Dr. matthews Metabolic Panel, Basic (36608)Indication: Afib On: 11-Cfw-050333:20 Request HEPATIC FUNCTION PANEL (11734)Indication: Elevated LFTs On: 87-Rjt-705507:20 Request Lipid Panel (42308)Indication: Hypercholesteremia On: 70-Lku-885085:20 Request METABOLIC PANEL, BASIC (10956)Indication: Hypokalemia On: 17-Feb-20139:10 Request Comments: pls send copy to Dr Young also METABOLIC PANEL, COMPREHENSIVE (17446)Indication: Palpitation On: 9-Loc-586767:10 Request CBC WITH MANUAL DIFF (27973)Indication: Palpitation On: 4-Odz-954698:10 Request TSH (47450)Indication: Palpitation On: 2-Usf-496062:10 Request CREATINE KINASE TOTAL (34496)Indication: Abnormal EKG On: 5-Vsh-425178:10 Request CPK MB FRACTION (19100)Indication: Abnormal EKG On: 9-Wnu-294034:10 Request Troponin I (38464)Indication: Abnormal EKG On: 5-Iiy-523398:10 Request LIPID PANEL (61874)Indication: Hypertensive left ventricular hypertrophy On: 59-Wfv-274744:43 Request Comments: in in six months (approximately) only. URINALYSIS, W/ MICRO (30105)Indication: Hematuria On: 99-Thd-639791:43 Request CBC (Auto) (49927)Indication: Hypertensive left ventricular hypertrophy On: 52-Jxh-653383:38 Request Metabolic Panel, Comprehensive (89459)Indication: Hypertensive left ventricular hypertrophy On: 41-Ehs-707068:37 Request URINE RASHAD CULTURE-IDENTIFICATN (44528)Indication: NEOP, BNG, RENAL PELVIS On: 11-Fik-067161:37 Request COMPLEMENT, TOTAL (CH50) (34576)Indication: Rheumatoid arthritis On: 8-Ext-410804:22 Request COMPLEMENT C4 (53010)Indication: Rheumatoid arthritis On: 1-Xhv-451851:22 Request COMPLEMENT C3 (25629)Indication: Rheumatoid arthritis On: 3-Iny-403051:22 Request Potassium Serum (95035)Indication: Hypokalemia On: 0-Gpx-326404:21 Request Comments: re check on Wednesday05-24-10 please call results to Dr. Troncoso RHEUMATOID FACTOR-QUANT ([id number]) test code [id number]: Rheumatoid arthritis On: 0-Bsl-308547:20 Request Comments: add to labs already drawn please Magnesium (52008)Indication: Hypokalemia On: 0-Fiz-837348:19 Request HEPATITIS PANEL (64618)Indication: Elevated LFTs On: :10 Request EBV IGM ANTIBODY (49681)Indication: Elevated LFTs On: : Request RASHAD CULTURE-BLOOD (03881)Indication: Urinary tract infection, site not specified On: : Request Amylase (35781)Indication: Abdominal pain, acute, generalized On: : Request Lipase (26810)Indication: Abdominal pain, acute, generalized On: : Request Sed Rate Erythrocyte (01746)Indication: Abdominal pain, acute, generalized On: : Request Metabolic Panel, Comprehensive (04352)Indication: Abdominal pain, acute, generalized On: : Request CBC with manual diff (37221)Indication: Abdominal pain, acute, generalized On: : Request Influenza A&B Viral Culture (37494)Indication: INFLUENZA W/MANIFESTATION NEC On: 59-Jyw-390882:48 Request Influenza A H1N1 PCR (82884)Indication: INFLUENZA W/MANIFESTATION NEC On: 69-Vyl-821795:48 Request Rapid Flu (59829 x 2)Indication: INFLUENZA W/MANIFESTATION NEC On: 39-Xsb-603569:48 Request METABOLIC PANEL, BASIC (59657)Indication: Hypokalemia On: 64-Atj-875971:20 Request CULTURE, SPUTUM (13376)Indication: Cough On: 24-Feb-20109:25 Request PPD (29963)Indication: Screening examination for pulmonary tuberculosis On: 41-Ajk-070782:05 Request Comments: Lot #[id number]/11Site-left forearmDose0.1 mlgiven by:[facility] Potassium Serum (34584)Indication: Hypokalemia On: 83-Sou-851361:27 Request Comments: 2weeks Glucose, PP/2 Hour (88259)Indication: Impaired fasting glucose On: 11-Yab-629352:23 Request Comments: 75 gm Lipid Panel (04297)Indication: Hypercholesteremia On: 56-Eud-086362:23 Request Comments: 4 months RASHAD CULTURE-OTHER (32294)Indication: Cellulitis and abscess of leg, except foot On: 99-Dbg-930820:16 Request Comments: nasal BACT CULTURE ANY-ANAEROBIC (75398)Indication: Cellulitis and abscess of leg, except foot On: :16 Request Comments: nasal BACT CULTURE ANY-ANAEROBIC (31712)Indication: Cellulitis and abscess of leg, except foot On: 75-Oha-928037:15 Request Comments: rt leg RASHAD CULTURE-OTHER (63783)Indication: Cellulitis and abscess of leg, except foot On: 30-Huu-175945:15 Request Comments: Rt leg OCCULT BLOOD FECES SCREEN (32539)Indication: Well woman exam On: :50 Request Comments: done in office Thin prep Pap (89538)Indication: Well woman exam On: :50 Request URINALYSIS W/O MICRO (36401)Indication: Hypertension, benign On: :49 Request CBC (Auto) (76160)Indication: Hypertension, benign On: :49 Request Lipid Panel (05064)Indication: Hypertension, benign On: :49 Request Metabolic Panel, Comprehensive (55069)Indication: Hypertension, benign On: :49 Request Planned Encounters Medical; [facility] Pre Wellness Exam (Nurse) - On: 08-Mar-2018 8:00 [facility] SAMI Orta; [facility] Wellness Exam (Doctor) - On: 28-Mar-2018 8:00 [facility] Diana Troncoso MD, MD, Dana M Planned Procedures TDAP VACCINE >7 IM (71271)By: On: 31-Aug-2017 Intent Diana Troncoso MD Comments: lot:[id number]:09/16/19rte:IM left deltoid dose:0.5mlgiven by:gosia Gonzáles LPN MD, Dana M DEXA SCAN AXIAL SKELETON On: 31-Aug-2017 Intent (61592)By: Diana Troncoso MD Comments: due 12-04 Diana Troncoso MD Aerosol Treatment (86655)By: On: 28-Apr-2017 Intent Katerine Campo DO Comments: no noise after aeorols inspir or exp Radiology - Chest- PA and On: 28-Apr-2017 Intent LatBy: Katerine Campo DO Spirometry (10581)By: Alber On: 28-Apr-2017 Intent Katerine SANCHEZ Comments: normal SCREENING DIGITAL On: 19-Jan-2017 Intent TOMOSYNTHESIS OF BREAST (66468)By: Diana Troncoos MD, MD, Dana M Holter Monitor 24 hrsBy: On: 10-Nov-2016 Intent Diana Troncoso MD Comments: copy to nazAmberAdsdejorge and him to read. Diana NUNEZ Radiology [...] DO Comments: stat call results Aerosol Treatment (57872)By: On: 26-Jun-2016 Marleni aLra DO Comments: with albuterol Holter Monitor 24 hrsBy: On: 21-May-2016 Intent Diana Troncoso MD, MD, Dana M EKG (35489)By: You, On: 21-May-2016 Intent SAMI Comments: see [...] M Flu Vaccine (Quadrivalent) On: 31-Jan-2016 Intent 21172Fz: Diana Troncoso MD Comments: Lot:[id number]:10/16/16Dose:0.5mLRoute:IMSite:L DltdGiven By:CHRISSIE signed Diana Troncoso MD MAMMOGRAM, SCREENING, BOTH On: 20-Jan-2016 Intent BREAST (91752)By: Diana Troncoso MD, MD, Dana M Flu Vaccine (Quadrivalent) On: 05-Feb-2015 Intent 19893Xs: Diana Troncoso MD Comments: Lot:[id number]:10/17/15Dose:0.5mLRoute:IMSite:L DltdGiven By:CHRISSIE signed Diana Troncoso MD IMMUNIZ ADMNIN, 1 VAC, On: 14-Jan-2015 Intent SNGL/COMBO (99748)By: Visit, Nurse ZOSTER VACC, [place] (48813)By: On: 14-Jan-2015 Intent Diana Troncoso MD Comments: lot: [id number]: 09/02site/route: R arm/SQamt:0.5mLVIS signed when applicableONUR Ballard MD, Dana M ADMINISTRATION OF On: 07-Jan-2015 Intent PNEUMOCOCCAL VACCINE (G0009)By: Izabela Rehman BILATERAL MAMMOGRAMS On: 18-Dec-2014 Intent (16526)By: Diana Troncoso MD, MD, Dana M Solu -Medrol Injection, 125 On: 19-Nov-2014 Intent mg (J2930)By: Jacquelyn Garcia CNP Aerosol Treatment (83893)By: On: 19-Nov-2014 Intent Jacquelyn Garcia CNP Wax CurettesBy: Manjit NUNEZ, On: 03-Jul-2014 Intent Diana Pena MD Ear Irrigation (16718)By: On: 03-Jul-2014 Intent Diana Troncoso MD Comments: IrrigationSite- R earAmount/Color/Quality - medium amount of soft, dark brown cerumen removed Toelrated well: yesCurette ONUR Schofield MD, Dana M Rocephin Injection, 2 Gram On: 03-Jul-2014 Intent (J0696)By: Diana Troncoso MD Comments: IMlot: [id number]: 12/18/16site/route: RGM and LGMamt: 2GVIS signed when applicableONUR Ballard MD, Dana M Solu -Medrol Injection, 125 On: 03-Jul-2014 Intent mg (J2930)By: Manjit NUNEZ, Comments: lot: [id number]: site/route: LGM/IMamt: 2mLVIS signed when applicableONUR Ballard MD, Dana M ELECTROCARDIOGRAM, COMPLETE On: 03-Jul-2014 Intent (ECG) (92939)By: Diana Troncoso MD, MD, Dana M Radiology - ChestBy: Ciesa On: 02-Jul-2014 Intent GRACE Kaitlin Aerosol Treatment (63130)By: On: 29-Jun-2014 Intent Jacquelyn Garcia CNP Solu -Medrol Injection, 125 On: 13-Jun-2014 Intent mg (J2930)By: Ciparam EDWARDS Kaitlin Aerosol Treatment (49161)By: On: 13-Jun-2014 Intent Jacquelyn Garcia CNP Radiology - ChestBy: Ciesa On: 06-Jun-2014 Intent GRACE Kaitlin Aerosol Treatment (49569)By: On: 06-Jun-2014 Intent Nat Boyle LPN Radiology - Knee - RightBy: On: 09-Apr-2014 Intent Katerine Campo DO Gtjkolbhe-Del-Gznyq On: 09-Apr-2014 Intent (93327)By: Katerine Campo DO ADMINISTRATION OF INFLUENZA On: 12-Feb-2014 Intent VIRUS VACCINE (G0008)By: Comments: Lot #[id number]-L dltd, IMDose prefilled syringegiven by:SILAS Meredith and ABN signed Visit, Nurse FLU VAC, SPLIT, >3 YEARS, On: 12-Feb-2014 Intent INTRAMUSC (64165)By: Visit, Nurse Ultrasound - LiverBy: Radha On: 23-Jan-2014 Intent Jacquelyn EDWARDS Jblmmacmv-Mdv-Rxhhs On: 25-Sep-2013 Intent (96620)By: Jacquelyn Garcia CNP SPECIMEN HANDLING/TRANSPORT On: 21-Jun-2013 Intent (76638)By: Pinawillian EDWARDS Jacquelyn Bean Breast Screening - On: 20-Jun-2013 Intent BilateralBy: Manjit NUNEZ, Diana Troncoso MD, Diana Nicole ADMINISTRATION OF INFLUENZA On: 08-May-2013 Intent VIRUS VACCINE (G0008)By: Nellie Hickey FLU VAC, SPLIT, >3 YEARS, On: 08-May-2013 Intent INTRAMUSC (28301)By: Manjit Comments: lot [id number] 2014site/route L kely, IMamt 0.5mlVIS and ABN signed when applicableONUR Ballard MD, Diana Troncoso MD, Diana Nicole Aerosol Treatment (86542)By: On: 21-Apr-2013 Intent Radha EDWARDS Jacquelyn Bean SPECIMEN HANDLING/TRANSPORT On: 16-Jan-2013 Intent (02294)By: Danisha Dawson LPN Venous Doppler - RightBy: On: 05-Dec-2012 Intent Pinawillian EDWARDS Kaitlin Radiology - Knee - RightBy: On: 05-Dec-2012 Intent Radha EDWARDS Jacquelyn Bean Holter Moniter (87679)By: On: 24-Nov-2012 Intent Katerine Campo DO Nuclear Stress Test/Stress On: 24-Nov-2012 Intent SPECT/TreadmillBy: Katerine Campo DO Echo CompleteBy: Alber SANCHEZ, On: 24-Nov-2012 Intent Katerine EKG (08170)By: Ernesto, On: 24-Nov-2012 Intent Shayy MATHEW Comments: nsr mild st depression lateral precordial leads MAMMOGRAM, SCREENING, BOTH On: 17-May-2012 Intent BREASTS (87421)By: Manjit NUNEZ, Diana Pena MD FLU VAC, SPLIT, >3 YEARS, On: 29-Mar-2012 Intent INTRAMUSC (58076)By: Ori, Comments: Lot:[id number]:6.30.13Dose:0.5mLRoute:IMSite:L DltdGiven By:JKMVIS signed Izabela ADMINISTRATION OF INFLUENZA On: 29-Mar-2012 Intent VIRUS VACCINE (G0008)By: Izabela Rehman Radiology - Wrist - LeftBy: On: 29-Sep-2011 Intent Diana Troncoso MD, MD, Diana Nicole Eprescribed prescriptions On: 29-Sep-2011 Intent (G8553)By: Diana Troncoso MD, MD, Dana M Aerosol Treatment (39034)By: On: 12-Jun-2011 Intent Ciesa HEAD KNITTING MACHINE FIXER, Kaitlin IMMUNIZ ADMNIN, 1 VAC, On: 03-Apr-2011 Intent SNGL/COMBO (42981)By: Diana Troncoso MD, MD, Dana M FLU VAC, SPLIT, >3 YEARS, On: 03-Apr-2011 Intent INTRAMUSC (25764)By: Manjit NUNEZ, Diana Troncoso MD, Diana Nicole MAMMOGRAM, SCREENING, BOTH On: 03-Apr-2011 Intent BREASTS (60187)By: Diana Troncoso MD, MD, Dana M Radiology - ChestBy: Ciesa On: 21-Jul-2010 Intent HEAD KNITTING MACHINE FIXER, Kaitlin Pulse Oximetry (94406)By: On: 21-Jul-2010 Intent Ciesa HEAD KNITTING MACHINE FIXER, Kaitlin Aerosol Treatment (27881)By: On: 21-Jul-2010 Intent Ciesa HEAD KNITTING MACHINE FIXER, Kaitlin CT - Abdomen & PelvisBy: On: 22-May-2010 Intent Manjit NUNEZ, Diana Troncoso Comments: wet read Diana Chandra MD Aerosol Treatment (46248)By: On: 10-Mar-2010 Intent Katerine Campo DO Comments: less noise adn more air exchg after aerosol -- still some wheezing and harsh noise Spirometry (77510)By: Alber On: 10-Mar-2010 Intent Katerine SANCHEZ Comments: mild obstruction - with FEV 1 of 83% Solu- Medrol Injection, 125mg On: 10-Mar-2010 Intent (J2930)By: Alber SANCHEZ, Comments: 2ml given im in lt hip [id number] exp 10-18-[address] - Brain/HeadBy: Alber SANCHEZ, On: 10-Mar-2010 Intent Katerine Pulse Oximetry (24280)By: On: 10-Mar-2010 Intent Alber DO, Katerine Pyrsphbqn-Fdz-Ohvga On: 10-Mar-2010 Intent (57674)By: Katerine Campo DO Radiology - ChestBy: Alber On: 10-Mar-2010 Intent Katerine SANCHEZ Solu -Medrol Injection, 125 On: 07-Mar-2010 Intent mg (J2930)By: Radha EDWARDS, Comments: Lot #[id number]/12Site-L hip LRLuun6avdsnck by:SHIRA Bean Aerosol Treatment (17831)By: On: 07-Mar-2010 Intent Jacquelyn Garcia CNP Pulse Oximetry (86600)By: On: 24-Feb-2010 Intent Jacquelyn Garcia CNP Inhaler Demonstration On: 24-Feb-2010 Intent (46202)By: Jacquelyn Garcia CNP Aerosol Treatment (80073)By: On: 24-Feb-2010 Intent Jacquelyn Garcia CNP ADMINISTRATION OF INFLUENZA On: 03-Feb-2010 Intent VIRUS VACCINE (G0008)By: Kanu Comments: Lot #[id number] 4PExp- 4/11Site- L Dltd/IMDose 0.5mlgiven by: QUINCY SILVA LPN, Megan L FLU VAC, SPLIT, >3 YEARS, On: 03-Feb-2010 Intent INTRAMUSC (58948)By: Kanu MATHEW, Eduardo L FLU VAC, SPLIT, >3 YEARS, On: 31-Jan-2010 Intent INTRAMUSC (01980)By: Augusto CLEMENTS, Comments: injection given in left deltoid,see scanned document/ [facility] IMMUNIZ ADMNIN, 1 VAC, On: 31-Jan-2010 Intent SNGL/COMBO (80057)By: Augusto CLEMENTS, Danita MAMMOGRAM, SCREENING, BOTH On: 25-Jul-2009 Intent BREASTS (25685)By: Manjit NUNEZ, Diana Troncoso MD, Diana Nicole Pulse Oximetry (87894)By: On: 28-Mar-2009 Intent SAMI Orta Flu Vaccine, Split IM On: 11-Jan-2009 Intent (63584)By: Rani MATHEW, Comments: Lot #[id number] 4PExp-5/2009Site-Left deltoidgiven by:FLIP Kruger CurettesBy: Radha EDWARDS, On: 02-Jul-2008 Intent Kaitlin Ear Irrigation (04958)By: On: 02-Jul-2008 Intent Jacquelyn Garcia CNP Aerosol Treatment (31561)By: On: 02-Jul-2008 Intent Jacquelyn Garcia CNP Bio Z (42647)By: Manjit NUNEZ, On: 04-May-2008 Intent Diana Troncoso MD, Diana Nicole EKG (82571)By: Manjit NUNEZ, On: 04-May-2008 Intent Diana Troncoso MD, Diana Nicole Holter Moniter (99298)By: On: 04-May-2008 Intent Manjit NUNEZ, Diana Troncoso MD, Diana Nicole Nuclear Stress Test/Stress On: 04-May-2008 Intent SPECT/AdenosineBy: Manjit NUNEZ, Diana Troncoso MD, Diana Nicole Echo CompleteBy: Manjit NUNEZ, On: 04-May-2008 Intent Diana Pena MD Cartoid DopplerBy: Manjit On: 04-May-2008 Intent , Diana Troncoso MD, Diana Nicole FLU VAC, SPLIT, >3 YEARS, On: 20-Mar-2008 Intent INTRAMUSC (69435)By: Yared, Comments: Lot #[id number]/30/08Site-right deltoidDose0.5mlgiven by Caro Armenta IMMUNIZ ADMNIN, 1 VAC, On: 20-Mar-2008 Intent SNGL/COMBO (07728)By: Kathi Vail Radiology - ChestBy: Manjit On: 28-Feb-2008 Intent Diana NUNEZ MD, Diana Nicole Comments: not better end of week INFUSION, NORMAL SALINE On: 06-Jul-2007 Intent SOLUTION , 250 CC (J7050)By: Jacquelyn Garcia CNP THER/PROPH/DIAG IV INF, INIT On: 06-Jul-2007 Intent (28820)By: Jacquelyn Garcia CNP Rocephin Injection, 2 Gram On: 06-Jul-2007 Intent (J0696)By: Jacquelyn Garcia CNP Comments: 2gms infused left hand without problem HYDRATION IV INFUSION, INIT On: 05-Jul-2007 Intent ([id number])By: Jacquelyn Garcia CNP Comments: #22 gauge started to left forearm area without difficulty per gosia Vancoymcin 500mg/premixedBy: On: 05-Jul-2007 Intent Jacquelyn Garcia CNP Comments: x2Lot #:[id number] date:09-17-08 Amount given:1 gram Route: IVSite given:left forearm area Given by: gosia insurance healthcare consultant IMMUNIZ ADMNIN, 1 VAC, On: 08-Feb-2007 Intent SNGL/COMBO ([id number])By: Marleni Kang DO FLU VAC, SPLIT, >3 YEARS, On: 08-Feb-2007 Intent INTRAMUSC ([id number])By: Jorge Luis SANCHEZ, Comments: given in left deltoid, 0.5cc, lot#[id number], [phone] WF Marleni Valencia THER/PROPH/DIAG IV INF, INIT On: 24-Jan-2007 Intent ([id number])By: Marleni Kang DO Comments: #22 gauge initiated right forearm without difficulty per gosia INFUSION, NORMAL SALINE On: 24-Jan-2007 Intent SOLUTION , 250 CC ([id number])By: Marleni Kang DO Rocephin Injection, 2 Gram On: 24-Jan-2007 Intent ([id number])By: Marleni Kang DO Comments: Lot #:[id number] date:06-25Amount given:2 grams Route: IVSite given:right forearm Given by: gosia MAMMOGRAM, SCREENING, BOTH On: 26-Aug-2006 Intent BREASTS ([id number])By: Manjit Comments: 10-12-06 , Diana Troncoso MD, Diana Nicole ELECTROCARDIOGRAM, COMPLETE On: 26-Aug-2006 Intent (ECG) ([id number])By: Manjit NUNEZ, Diana Pena MD Planned Medications [...] providers contributing to the patient's care are powdered sugar supervisor, quality facilitator and other: ([facility]).Encounter Diagnosis: BMI 29.0- 29.9,adult, History [...] for Tdap vaccination (Renamed from Need for hsdoztkxqu-kgjwmge-oumeyfzbd (Tdap) vaccine, adult/adolescent) [facility] [...] Nutrition: balanced diet and supplemental vitamins. The la dical issues the patient is following up [...] providers contributing to the patient's care are powdered sugar supervisor (Dr Young), cream dipper (Arin - when had pneumonia but not currently in need of his care at this time), quality facilitator (dr Garland), surgeon ([facility] - shoulder) and other: (dentist - Dr Chiu - [facility] - goes every 3 years. [...] or bracelet or put area rugs thro [facility]. The patient has completed the following preventative measures: PAP smear (many years ago will have today ), mammography () and colonoscopy (2005). The patient does have durable power of trial attorney and living will. The patient has noticed nothing from the geriatic depression scale. Other providers contributing to the patient's care are powdered sugar supervisor (Dr. Young ), gastrologist (Dr. Cande novak ), quality facilitator (Dr. Garcia ) and other: (Dr. Reza [...] oral corticosteroids (celebrex).Encounter Diagnosis: Knee pain, right (789.46) [facility] Phone Encounter On: 25-Nov-2012 [...] visit: still red and tender to touch, [place] took out cyst and dr sifuentesned it.- [...]
--- OUTSIDE RECORDS SUMMARY | 2018-07-07 08:30 | XMS RPT_ITS ---
:1940 Author Organization [employer] Address [address] [place] [address] [place] [address] Phone Care Team Providers Name Role Phone Bob Padron MD Unavailable Reason for Visit Reason For Visit Description Start Date Postop - subsequent visit Preliminary reason for visit data, not yet signed by the author as of left foot post left foot Modified Lorenzana bunionectomy 1st MTP fusion 2-5 PIP and MTP arthroplasties on 02/16/2018 Preliminary reason for visit data, not yet signed by the author as of Chief Complaint Chief Complaint Description Start Date left foot post left foot Modified Lorenzana bunionectomy 1st MTP fusion 2-5 PIP and MTP arthroplasties on 02/16/2018 Preliminary chief complaint data, not yet signed by the author as of Instructions Instruction Description Start Date Patient advised to follow-up with Primary Care Physician for BMI management. Plan of Care Type Date Detail Appointment 10:45 AM Bob Padron MD, [address] [place] [address], [id number], [place], [id number], Appointment 11:15 AM Bob Padron MD, [facility], [id number], [place], [id number], Patient education \cps-sql1\CPS_PtEducation\htn. pdf, Medications Medications Medication Instructions Start Stop Generic Name NDC Provider Date Date CEFADROXIL 500 MG take one CEFADROXIL [id number] Bob Castillo CAPS tablet 2 06/05 Vito NUNEZ times per day CEFADROXIL 500 MG Take 1 CEFADROXIL [id number] Marilee CAPS capsule by 06/02 [place] mouth 2 times PAC a day for 5 days DUEXIS 800-26.6 MG take one IBUPROFEN-FAMOTIDIN 57275423144 Richard TABS tablet two 04/23 E [place] times per day PAC after meals LOSARTAN take 1 pill LOSARTAN [id number] Richard POTASSIUM-HCTZ once daily 12/28 POTASSIUM-HCTZ [place] 100-12.5 MG TABS PAC FISH OIL CAPS take 2 pills OMEGA-3 FATTY ACIDS 63093845504 Richard once daily 12/28 CAPS [place] PAC METOPROLOL TARTRATE take 1 METOPROLOL TARTRATE 87655955906 Richard 25 MG TABS tablet once 12/28 [place] daily PAC HYDROCHLOROTHIAZIDE take 1 tablet HYDROCHLOROTHIAZIDE 66447105903 Richard 12.5 MG TABS once daily 12/28 [place] PAC MAGNESIUM-OXIDE TABS take 1 pill MAGNESIUM OXIDE 99436287781 Richard twice daily 12/28 TABS [place] PAC POTASSIUM TABS take 1 pill POTASSIUM TABS 59180463548 Richard twice daily 12/28 [place] PAC MINOCYCLINE HCL 100 take 1 pill MINOCYCLINE HCL 54458596632 Richard MG CAPS once daily 12/28 [place] PAC FLECAINIDE ACETATE take 1 pill FLECAINIDE ACETATE 01684452209 Richard 100 MG TABS twice daily 12/28 [place] PAC VITAMIN D3 CAPS take 1 pill CHOLECALCIFEROL 25334045290 Richard once daily 12/28 CAPS [place] PAC Conditions or Problems Problem Name Problem Onset Status Entry Provider Comment Standard Annotate Code Date Date Description 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 Bob Castillo H/O: surgery rheumatoid left foot (SNOMED 05/08 05/[address]) MD denson n Risk for 143242934 Active Jamaal Palacios At risk for falls (SNOMED 01/13 01/[address]) Osteoporosis 72219367 Active Jamaal Palacios Osteoporosis (SNOMED 01/13 01/[address]) Arthritis of 554019810 Active Jamaal Palacios Arthritis of left knee (SNOMED 01/13 01/[address]) Dislocation 523398768 Active Richard Dislocation 2nd and 3rd of toe of (SNOMED 12/28 12/29 [place] of joint toes right foot CT) PAC Dislocation 130392241 Active Richard Dislocation 2nd and 3rd of toe of (SNOMED 12/28 12/29 [place] of joint toes left foot CT) PAC Hallux valgus 239284136 Active Richard Hallux valgus (acquired), (SNOMED 12/28 12/[address]) PAC Hallux valgus 557757081 Active Richard Hallux valgus (acquired), (SNOMED 12/28 12/[address]) PAC Hallux 297275886 Active Richard Toe joint rigid[facility], [facility] 12/29 [facility] rigid foot CT) PAC Hallux 020828558 Active Richard Toe joint rigidus, ([facility] 12/28 12/29 [facility] rigid right foot CT) PAC RA 54031159 Active Richard Rheumatoid (rheumatoid (SNOMED 12/28 12/29 [facility] arthritis arthritis) CT) PAC Allergies, Adverse Reactions, Alerts Allergy Name Reaction Start Date Severity Status Provider Description NOV Critical Active Richard Briones PAC ROBAXIN Critical Active Richard Briones PAC LOCAL ANESTHETIC Critical Active Richard Anali PAC Social History No information available. Vital Signs Date Name Value Unit Description BMI (Body Mass 29.00 kg/m2 Body Mass Index Index) [Ratio] Preliminary vital sign data, not yet signed by the author as of BP Diastolic 81 mm[Hg] blood pressure, diastolic Preliminary vital sign data, not yet signed by the author as of BP Diastolic 80 mm[Hg] blood pressure, diastolic, second observation Preliminary vital sign data, not yet signed by the author as of BP Systolic 145 mm[Hg] blood pressure, systolic Preliminary vital sign data, not yet signed by the author as of BP Systolic 149 mm[Hg] blood pressure, systolic, second observation Preliminary vital sign data, not yet signed by the author as of Heart Rate 73 /min pulse rate E&M Preliminary vital sign data, not yet signed by the author as of Height 62 [in_us] height E&M Preliminary vital sign data, not yet signed by the author as of Height 157 cm height in centimeters E&M Preliminary vital sign data, not yet signed by the author as of Weight Measured 158 [lb_av] weight E&M Preliminary vital sign data, not yet signed by the author as of Weight Measured 72 kg weight in kilograms E&M Preliminary vital sign data, not yet signed by the author as of Results Date Name Value Unit Range Flag Description Office Visit: Postop - subsequent visit, Rm: 17 MEDS REVIEW Done Documentation of current medications (procedure) Preliminary observation data, not yet signed by the author as of XRAY HX of the left foot xray history on 03/24/2018 at [facility] Preliminary observation data, not yet signed by the author as of Preliminary observation data, not yet signed by the author as of [facility] Office Visit: New/Est - 1st visit with physician, Rm: 3 MEDS REVIEW Done Documentation of current medications (procedure) XRAY HX of the left foot xray history on 03/24/2018 at [facility] Clinical Summary[facility] Procedures Code Procedure Name Date Entry Date G8730 Pain assessment documented as positive - follow-up documented G8427 Current medications documented 1036F Tobacco screening was negative - non user G8417 BMI documented as above normal parameters - follow-up documented G8952 Blood pressure outside of normal parameters - follow-up not documented [id number] Functional status not assessed - RA [id number] Patient Encounter Medications Administered No information available. Immunizations No information available. Advance Directives There may be information available, but it has not been provided by the sender. Assessments There may be information available, but it has not been provided by the sender. Review of Systems There may be information available, but it has not been provided by the sender. Family History There may be information available, but it has not been provided by the sender. History of Past Illness There may be information available, but it has not been provided by the sender. History of Present Illness There may be information available, but it has not been provided by the sender.
--- OUTSIDE RECORDS SUMMARY | 2018-07-07 08:30 | XMS RPT_ITS | Continuity of Care Document ---
:1940 Author Organization [facility] Address [address] [place] [address] Phone Care Team Providers Name Role Phone [...] (R94.5, 790.6) Comments: xray show fatty liver - CT scan good liver. no nsaids or [...] are up to date except for Kulwant rangel, last eye exam was with Dr. Richey and included glaucoma screening 2016, whisper test WNL, 6CIT Status: Active Family history of heart disease (Z82.49, V17.49) Status: Active Hammer toe (M20.40, 735.4) Status: Active History of fall (Z91.81, V15.88) [...] joints an less infections she like orenciaBD 11- good Status: Active Sinusitis, chronic (J32.9, 473.9) Comments: had sinus surgery sonny 2010. help alot at this point no infection with immunosupp had 2 courses of ATB recently still drainage chronicioc will get claritin without D. Status: Active Medications Name Dates Details Aspirin Adult Low Dose 81 MG Oral Tablet Delayed Release 1 (one) Tablet DR Juanita MALDONADO in am for 0 days Quantity: 30 {Tablet} Refills: 0 Ordered:10-Feb-2016 Bryant Montana Start : 31-Jan-2016 Active Duexis 800-26.6 MG Oral Tablet 1 (one) Tablet bid after a meal for 0 days Quantity: 60 {Tablet} Refills: 0 Ordered:22-Feb-2018 Manjit NUNEZ, Diana Burris MD, Diana Nicole Start : 22-Feb-2018 Active Comments:Dr. Briones FLECAINIDE ACETATE, 100MG (Oral Tablet) 1 bid (100 MG) Active HydroCHLOROthiazide 12.5 MG Oral Tablet 1 (one) Tablet in am for 0 days Quantity: 30 {Tablet} Refills: 6 Ordered:27-Jan-2018 Diana Troncoso MD, MD, Dana M Start : 27-Jan-2018 Active Klor-Con M20 20 MEQ Oral Tablet Extended Release 2 (two) Tablet ER qd for 0 days Quantity: 180 {Tablet} Refills: 3 Ordered:29-Jun-2017 Diana Troncoso MD, MD, Dana M Start : 29-Jun-2017 Active N-Iidxiwvzcbqz-Jkdzi 7.5-90.314 MG Oral Capsule 1 (one) Capsule [...] Refills: 0 Ordered:26-Jul-2017 Diana Troncoso MD, MD, Dana M Start : 26-Jul-2017 End : 05-Aug-2017 Inactive [...] days Quantity: 42 {Tablet} Refills: 0 Ordered:17-Apr-2010 Danisha Dawson LPN [...] Refills: 5 Ordered:10-Sep-2015 Diana Troncoso MD, MD, Diana Nicole Start : 10-Sep-2015 End : 10-Sep-2015 Inactive [...] 04-May-2008 Inactive LEVAQUIN, 500MG (Oral Tablet) 1 (one) Tablet daily for 14 days Quantity: 14 {Tablet} Refills: 0 Ordered:28-Mar-2009 Manjit NUNEZ, Diana Gonsalves MD Start : 28-Mar-2009 End : 11-Apr-2009 Inactive LEVAQUIN, 500MG (Oral Tablet) 1 Tablet daily for 7 days Quantity: 7 {Tablet} Refills: 0 Ordered:24-Feb-2010 Deborahkimmywillian EDWARDSJacquelyn Start : 24-Feb-2010 End : 03-Mar-2010 Inactive Lopressor 50 MG Oral Tablet 1/2 (one half) Tablet QD for 0 days Quantity: 90 {Tablet} Refills: 1 Ordered:02-Jun-2016 SAMI Orta Start : 21-May-2016 End : 02-Jun-2016 Inactive Macrobid 100 MG Oral Capsule 1 (one) Capsule bid for 0 days Quantity: 20 {Capsule} Refills: 0 Ordered:29-Jun-2017 SAMI Orta Start : 20-May-2017 End : 29-Jun-2017 Inactive Comments:called to [facility] in [place], [phone] Medrol 4 MG Oral Tablet Therapy Pack [...] Refills: 5 Ordered:10-Dec-2017 Diana Troncoso MD, MD, Diana Nicole Start : 10-Dec-2017 End : 10-Dec-2017 Inactive [...] days Quantity: 30 {Packet} Refills: 4 Ordered:20-Oct-2011 Roxy Saravia LPN Start : 01-Oct-2011 End : 20-Oct-2011 Inactive ZITHROMAX Z-JESI, 250MG (Oral Tablet) 1 Tablet TAD for 0 days Quantity: 1 {Package(s)} Refills: 0 Ordered:29-Sep-2011 Eduardo Bateman LPN Start : 12-Jun-2011 End : 29-Sep-2011 Inactive ZOCOR, 20MG (Oral Tablet) 1 qd for 0 days Refills: 0 Ordered:24-Feb-2010 Samir QUINCYDanisha End : 24-Feb-2010 Inactive AMLODIPINE BESYLATE, 5MG (Oral Tablet) 1 Tablet daily for 30 days Quantity: 30 {Tablet} Refills: 6 Ordered:29-Aug-2009 Mast Danita CLEMENTS Start : 29-Aug-2009 End : 29-Aug-2009 Discontinued Comments:b/p not controlled Atorvastatin Calcium 10 MG Oral Tablet 1/2 (one half) Tablet at night for 0 days Quantity: 30 {Tablet} Refills: 4 Ordered:19-Nov-2016 Diana Troncoso MD, MD, Diana Nicole Start : 19-Nov-2016 End : 19-Nov-2016 Discontinued BIAXIN XL PAC, 500MG (Oral Tablet Extended Release 24 Hour) 2 (two) Tablet ER 24HR daily for 10 days Quantity: 28 {Tablet_ER_24HR} Refills: 0 Ordered:10-Mar-2010 Alber SANCHEZ Katerine Start : 10-Mar-2010 End : 10-Mar-2010 Discontinued CALCIUM + D, 492-625IX-QMUO (Oral Tablet) 2 qd for 0 days Refills: 0 Ordered:05-Jan-2013 Shayy Orozco LPN End : 05-Jan-2013 Discontinued Comments:This order discontinued per [facility]. CELEBREX, 200MG (Oral Capsule) 1 Capsule qd for 0 days Quantity: 90 {Capsule} Refills: 3 Ordered:06-Jun-2014 SlaNat gamble LPN Start : 09-Apr-2014 End : 06-Jun-2014 Discontinued CHOLESTYRAMINE LIGHT, 4GM (Oral Packet) 1 Packet Bid for 30 days Quantity: 60 {Packet} Refills: 4 Ordered:09-May-2015 Manjit NUNEZ, Diana Burris MD, Diana Nicole Start : 09-May-2015 End : 09-May-2015 Discontinued [...] days Quantity: 30 {Capsule} Refills: 0 Ordered:18-Nov-2017 Manjit NUNEZ, Diana Burris MD, Diana Nicole [...] qd for 30 days Refills: 0 Ordered:13-Jul-2013 Katerine Campo DO Start : 05-Jan-2013 End : 13-Jul-2013 Discontinued Comments:This order discontinued per [facility]. Allergies and Adverse Reactions Name Dates Details [...] Arthritis (M19.90, 716.90) Comments: Dr. Garcia in [place] stable off meds now doign well last [...] Comments: no seem infected ? because outsid eworkig in mulch and air. she react. willfollow [...] 2006 cystoscope, repeat 07-[address] rcihardson kidney no tumor and abscess gone Status: Inactive as of 13-Jul-2013 Hematuria (R31.9, 599.70) Status: Inactive as of 21-Dec-2014 Hip bursitis, left (M70.72, 726.5) Status: Resolved as of 30-Aug-2017 Hip pain, acute, right (M25.551, 719.45) Comments: fell 10 days ago directly onto right side, onto deck [facility] has swelling and ecchymosis Status: Resolved as [...] for Tdap vaccination (Renamed from Need for ehsmnughqb-cynazlz-bsnhqrkas (Tdap) vaccine, adult/adolescent) (Z23, V06.1) Status: Resolved as of 10-Dec-2017 NEOP, BNG, RENAL PELVIS (223.1) Comments: 3-12 not have now. will follow urine cx [...] Well woman exam (Z01.419, V72.31) Comments: scope 2005. has order for mammo fax and will do. Status: Resolved as of 03-Jan-2015 Wheezing (R06.2, 786.07) Status: Inactive as of 18-Aug-2016 Wheezing (R06.2, 786.07) Status: Inactive as of 21-Dec-2014 WWV V73.21 Status: Inactive as of 01-Apr-2013 Yeast infection (B37.9, 112.9) Status: Inactive as of 03-Jan-2015 Procedures Procedure Dates Details PNEUM VAC ADLT/IMUMNOSPR, Date: 07-Jan-2015 Completed 07-Jan-2015 SBC/INTRM (56320) Comments: Lot:[id number]:05/01/16Dose:0.5mgRoute:imSite:l armGiven By:FRANCA given on 01/03/15VIS signed Colonoscopy Completed Comments: 2005 colonoscopy Completed Comments: Dr Bailey - around age 56 or 66 D&C to get Completed Comments: x3 HAMMERTOE REPAIR (13577) Completed Comments: deformities with dislocated metatarsophalangeal joints 2nd, 3rd, 4th and 5th toes 02-16-18 PACEMAKER IMPLANTATION (84323) Completed Comments: dual chamber 06-29-17 [facility] Dr. Fleming ROTATOR CUFF REPAIR Completed Comments: Left, July 31 2005, Dr Josue Tonsillectomy Completed Tubal Ligation Completed Date Value Details 18-Jan-2018 Cardiology Visit Report Result: Comments: See Note; NOTES: [facility] [address] [place] [address] OFFICE VISIT Date of Service: 01/18/18 MR#: [id number] Acct: [id number] Name: MALI WALDEN p #: [id number] : 1940 Provider: ELISE Bah Age/Sex: 77/F Location: [facility] Status: Signed HPI HPI Details: MALI [...] mg PO DAILY 06/08/17 [History Confirmed 01/18/18] [place]-3 Fatty Acids/Fish Oil [Fish Oil 1,000 mg [...] Clear to Auscultation Cardio Palpation: normal P ME Rate: regular rate Rhythm: regular rhythm Heart [...] with atrial tachycardia. Pacemaker check from A ug2017 showed no MS, no AT/AF, and no VT episodes, presenting rhythm of AAI pacing at 98 ppm, DOCENT COORDINATOR=0%, AP=96.2%, and battery life estimated to be [...] signed by Eliceo WOMACK> Da te Eliceo LOUISC Cosigner Signature: Date (if applicable) CC: Bob Padron MD; Diana Troncoso MD 16-Dec-[address] w/CCTA Result: Comments: See Note; NOTES: [facility] Imaging Services [address] [place] [address] w/CCTA MR#: [id number] Acct: [id number] Name: MALI WALDEN Rep #: [id number] : 1940 F 77 From: Archie Alvares MD PCP: Diana Troncoso MD Status: [facility] CL Study: Limited Chest CT w/CCTA Date of Exam: 12/16/17 Exam# [id number] Ordering Dr: Diana Troncoso MD STUDY: CT [...] Archie Alvares MD at 9:03 EDT Tel [phone], Service support , CC: Diana Troncoso MD Loan Underwriter: Signed 02-Dec-2017 Pacemaker Check Result: Comments: See Note; NOTES: [facility] [address] [place] [address]. [address] [place] [address] Pacemaker Check Date of Service: 12/01/172006 MR#: [id number] Acct: [id number] Name: EDDIE WALDEN BAMPiyush E Rep #: [id number] : 1940 From: Nishi Johnson Age/Sex: 77/F Location: [facility] Status: Signed 12/01/172008 <Electronically signed by Nishi Johnson > Date Nishi Johnson 12/02/17 0855<Electronically signed by Manoj Young MD> Cosigner Signature: Date (if applicable) Manoj Young MD CC: 04-Sep-2017 Cardiology Visit Report Result: Comments: See Note; NOTES: [facility] 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 We will continue to [...] Pacemaker Check Result: Comments: See Note; NOTES: [facility] 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 6 wk post implant [...] rhythm shows AAI pacing @ 71 ppm. DOCENT COORDINATOR=0.1%. Estimated battery life 9 yrs. Device and lead measurements stable. Decreased A/V amplitudes with adequate safety margin to preserve battery longevity. Counters cleared. Next remote f/u appt scheduled for in 3 mos. Device Device Date Interviewed: 08/20/17 Follow-up Location: in office Interview Reason: scheduled follow up Manufact urer: Medtronic Name: Fazal GALLOWAY Model: A2DR01 Serial #: [id number] Implant Date: 06/28/17 Year(s): 0 Implant Physician: Dr. 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: [employer] Model Lead 2: 5076/52 Serial# Lead 2: [id number] Date Implanted Lead 2: 06/28/17 Position Lead [...] Discharge Instruction Result: Comments: See Note; NOTES: [facility] Medical Records Department [address] [place] [address] Instructions for Home/Discharge Instructions 06/29/17 1042 MR#: [id number] Acct: [id number] Name: MALI WALDEN Rep #: [id number] : 1940 76 From: Brennan Fleming MD PCP: Diana Troncoso MD Status: [facility] Discharge Diet: No Restrictions Discharge Activity: [...] call your doctor's office or Doctor's Registry ([phone]) Call 911 or go to the nearest [...] mg tablet 12.5 mg PO DAILY 06/08/17 [place]-3 Fatty Acids/Fish Oil [Fish Oi l 1,000 mg Capsule] 1 each PO DAILY 06/28/17 Primary Care Physician: Diana Troncoso MD [Primary Care Provider] - When: pacer nurse 06/29/17 1050 <Electronically signed by Brennan Fleming MD&am p;#62; Date Brennan Fleming MD CC: Diana Troncoso MD 29-Jun-2017 Chest 1 View Result: Comments: See Note; NOTES: [facility] Imaging Services [address] [place] [address] Chest 1 View MR#: [id number] Acct: [id number] Name: MALI WALDEN Rep #: [id number] : F 76 From: [facility] PCP: Diana Troncoso MD Status: [facility] Study: Chest 1 View Date of Exam: 06/29/17 Exam# [id number] Ordering Dr: Brennan Fleming MD STUDY: X-RAY [...] CC: Brennan Fleming MD; Diana Troncoso MD Loan Underwriter: Signed 29-Jun-2017 Chest PA and Lateral Result: Comments: See Note; NOTES: [facility] Imaging Services [address] [place] [address] Chest PA and Lateral MR#: [id number] Acct: [id number] Name: MALI WALDEN Rep #: [id number] : 1940 F 76 From: Liam Arreaga PCP: Diana Troncoso MD Status: [facility] Study: Chest PA and Lateral Date of Exam: 06/29/17 Exam# [id number] Ordering Dr: Brennan Fleming MD STUDY: X-RAY [...] CC: Brennan Fleming MD; Diana Troncoso MD Loan Underwriter: Signed 22-Jun-2017 Office Visit Report Result: Comments: See Note; NOTES: [facility] Services [address] [place] [address] OFFICE VISIT Date of Service: 06/21/17 MR#: [id number] Acct: [id number] Patient: MALI WALDEN Rep #: [id number] : 1940 Provider: Nishi Johnson Age/Sex: 76/F Location: [facility] Status: Signed Comments Summary Comments: Pacemaker instructions, written and verbal, given to patient and daughter jarekin g post-op wound check appt. All questions answered [...] Stress Report Result: Comments: See Note; NOTES: [facility] Cardiovascular Services [address] [place] [address] MR#: [id number] Acct: [id number] Name: MALI WALDEN Rep #: [id number] : [birth year] 76 From: Brennan Fleming MD [...] Vang Date Dictated: 06/15/17921 Date Transcribed: 06/15/17921 Loan Underwriter: [place] Signed 09-Jun-2017 Cardiology Visit Report Result: Comments: See Note; NOTES: [facility] [place] [address] OFFICE VISIT Date of Service: 06/08/17 MR#: [id number] Acct: [id number] Name: MALI WALDEN p #: [id number] : 1940 Provider: Amna Vang Age/Sex: 76/F Location: [facility] Status: Signed HPI HPI Details: MALI [...] was in the hospital last month in [place]. She was lightheaded and dizzy. 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, vomiting blood/hematemesis, bright, red blood in [...] and Lateral Result: Comments: See Note; NOTES: [facility] Imaging Services [address] [place] [address] Chest PA and Lateral MR#: [id number] Acct: [id number] Name: MALI WALDEN Rep #: [id number] : 1940 F 76 From: Tex Junior DO PCP: Diana Troncoso MD Status: REG CLI Study: Chest PA and Lateral Date of Exam: 04/28/17 Exam# [id number] Ordering Dr: Katerine Campo DO STUDY: X-RAY [...] Tex Junior DO at 9:39 EST Tel [phone], Service support , CC: Diana Troncoso MD; Katerine Campo DO Loan Underwriter: Signed 02-Mar-2017 SCREENING MAMM (CAD), BILAT Result: Comments: See Note; NOTES: [facility] Imaging Services [address] [place] [address] SCREENING MAMM (CAD), BILAT MR#: [id number] Acct: [id number] Name: MALI WALDEN Rep #: [id number] : 1940 F 76 From: Archie Alvares MD PCP: Diana Troncoso MD Status: REG CLI Study: SCREENING MAMM (CAD), BILAT Date of Exam: 03/02/17 Exam# [id number] Ordering Dr: Diana Troncoso MD MA MMOGRAPHY [...] delay biopsy of a clinically suspicious abnormality. CT5328 Electronically Signed: Archie Alvares MD at 16:04 EST Tel [phone], Service support , CC: Diana Troncoso MD Loan Underwriter: Signed 03-Jan-2017 Inital Evaluation (1) - PT Result: Comments: See Note; NOTES: [facility] Physical Therapy [facility] [address] [place] [address]. [address] [place] [address] Fax REHABILITATION SERVICES INITIAL EVALUATION MR#: [id number] Acct: [id number] Name: MALI WALDEN Rep #: [id number] : 1940 76 From: Moody Tang DPT Referring Dr.: Berto Carrillo MD Status: REG RCR Insurance: 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 D ate of Evaluation: 12/31/16 Physical Therapist: Moody Tang - Visit Plan Frequency: 2-3x /Week Duration: [...] gym exercises with increased tolerance. 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 Please let me know if there are questions or concerns regarding this plan of care . Physician Signature: Date: <Electronically signed by Moody Tang DPT> 01/03/17 1457 CC: Diana Troncoso MD; Berto lawrence MD CLS Signed For Medicare only, by signing this I certify the plan of care. Physicians Signature Date 03-Dec-2016 Carotid Duplex Ultrasound Result: Comments: See Note; NOTES: [facility] Cardiovascular Services [address] [place] [address] Carotid Duplex Ultrasound 12/03/16 1106 MR#: [id number] Acct: [id number] Name: MALI WALDEN Rep #: [id number] : 1940 76 From: Charlie Aragon MD Attending Dr: Hannah NUNEZ,Manoj Status: REG CLI Ordering Dr: Manoj Young [...] the left vertebral artery. Procedure Carotid Duplex 48810. The exam was diagnostic. Exam performed in department. Interpretation Summary M ild (<50%) stenosis right extracranial internal carotid. Mild (<50%) stenosis left extracranial internal carotid. Flow within the vertebral arteries is antegrade bilaterally. Ordering Physician: Manoj Young Performed By: Rey Sánchez Val 12/03/162032 Date Charlie Aragon MD CC: Diana Troncoso MD; Manoj Young MD Date Dictated: 12/03/16 1106 Date Transcr ibed: 12/03/162032 Loan Underwriter: Signed 28-Jul-2016 PT D/C Summary (1) Result: Comments: See Note; NOTES: [facility] Physical Therapy [facility] [address] [place] [address]. [address] [place], [place] [address] Fax REHABILITATION SERVICES [facility] SUMMARY MR#: [id number] Acct: [id number] Name: MALI WALDEN Rep #: [id number] : 1940 75 From: Cert. MAYRA Monet PTT Referring Dr.: Diana Troncoso MD Status: REG RCR Insurance: [facility] HP - PT D/C Summary It has been [...] PAIN NOW. 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 Thank you for the referral of this patient. Sincerely, Yolanda Cassidy <Electronically signed by Yolanda Cassidy PTCert. NUNEZT> 07/28/16 1143 CC: Diana Troncoso MD TERESSA Signed 26-Jun-2016 Chest PA and Lateral Result: Comments: See Note; NOTES: [facility] Imaging Services [address] [place] [address] Verdana 4d Chest PA and Lateral MR#: [id number] Acct: [id number] Name: MALI WALDEN Rep #: [id number] : 1940 F 75 From: Rubens Waters MD PCP: Diana Troncoso MD Status: REG CLI Study: Chest PA and Lateral Date of Exam: 06/26/16 Exam# [id number] Ordering Dr: Marleni Kang DO STUDY: X-RAY [...] at 13:11 EST Tel , Service support [phone], CC: Diana Troncoso MD; Marleni Kang DO Loan Underwriter: Signed 20-May-2016 Re-Evaluation - PT (1) Result: Comments: See Note; NOTES: [facility] Physical Therapy [address] [place] [address] Fax [facility] MR#: [id number] Acct: [id number] Name: MALI WALDEN Rep #: [id number] : 1940 75 From: Yolanda Cassidy PT, Cert. MDT Referring Dr.: Diana Troncoso MD Status: REG RCR Insurance: [employer] [facility] Diana Troncoso, It has been my [...] do not hesitate to contact me at [phone] by phone or if you have questions or concerns regarding this new plan of care! Sincerely, Yolanda Cassidy < Electronically signed by Yolanda Cassidy PT, Cert. MDT> 05/20/16 1026 CC: Diana Troncoso MD TERESSA Signed For Medicare only, by signing this I certify the plan of care. _ Physicians Signature Date 07-May-2016 Liver Result: Comments: See Note; NOTES: [facility] Imaging Services [address] [place] [address] Felipe 4d Liver MR#: [id number] Acct: [id number] Name: MALI WALDEN Rep #: [id number] : 1940 F 75 From: Archie Alvares MD PCP: Diana Troncoso MD Status: REG CLI Study: Liver Date of Exam: 05/07/16 Exam# [id number] Ordering Dr: Diana Troncoso MD STUDY: ABDOMINAL [...] Archie Alvares MD at 10:59 EST Tel [phone], Service support [phone], CC: Diana Troncoso MD Loan Underwriter: Signed 23-Apr-2016 Inital Evaluation (1) - PT Result: Comments: See Note; NOTES: [facility] Physical Therapy [facility] [address] [place], [place] [address] Fax REHABILITATION SERVICES INITIAL EVALUATION MR#: [id number] Acct: [id number] Name: MALI WALDEN Rep #: [id number] : 1940 75 From: Yolanda Cassidy PT, Cert. MDT Referring Dr.: Diana Troncoso MD Status: REG R Insurance: [facility] Patient's Visit Information MALI WALDEN is a [...] be FAXED BACK to u s at [phone] for Medicare purposes. Please let me know [...] with Pelvis Result: Comments: See Note; NOTES: [facility] Imaging Services [address] [place] [address] Verdana 4d Hip 2-3 Views with Pelvis MR#: [id number] Acct: [id number] Name: MALI WALDEN Rep #: [id number] : 1940 F 75 From: Archie Alvares MD PCP: Diana Troncoso MD Status: REG CLI Study: Hip 2-3 Views with Pelvis Date of Exam: 02/10/16 Exam# [id number] Ordering Dr: Diana Troncoso MD STUDY: X-RAY [...] Archie Alvares MD at 13:03 EDT Tel [phone], Service support [phone], CC: Diana Troncoso MD Loan Underwriter: Signed 10-Feb-2016 L/S Spine Min 4 Views Result: Comments: See Note; NOTES: [facility] Imaging Services [address] [place] [address] Verda 4d L/S Spine Min 4 Views MR#: [id number] Acct: [id number] Name: MALI WALDEN Rep #: [id number] : 1940 F 75 From: Archie Alvares MD PCP: Diana Troncoso MD Status: REG CLI Study: L/S Spine Min 4 Views Date of Exam: 02/10/16 Exam# [id number] Ordering Dr: Diana Troncoso MD S TUDY: [...] Archie Alvares MD at 12:46 EDT Tel [phone], Service support [phone], CC: Diana Troncoso MD Loan Underwriter: Signed 22-Jan-2016 Bilat Scrn Digital AND CAD Result: Comments: See Note; NOTES: [facility] Imaging Services [address] [place] [address] Verdana 4d Bilat Scrn Digital AND CAD MR#: [id number] Acct: [id number] Name: MALI WALDEN Rep #: [id number] : 1940 F 75 From: Archie Alvares MD PCP: Diana Troncoso MD Status: REG CLI Study: Bilat Scrn Digital AND CAD Date of Exam: 01/22/16 Exam# [id number] Ordering Dr: Dereck Troncoso MD MAMMOGRAPHY - [...] delay biopsy of a clinically suspicious abnormality. [id number] Electronically Signed: Archie Alvares MD at 10:36 EDT T [phone], Service support [phone], CC: Diana Troncoso MD Loan Underwriter: Signed 08-Feb-2015 Emergency Department Summary Result: Comments: See Note; NOTES: [facility] Medical Records Department [address] [place] [address] Emergency Department Summary MR#: [id number] Acct: [id number] Name: MALI WALDEN Rep #: [id number] : 1940 74 From: Solomon Morse MD [...] C: Diana Ribeiro MD T: NTS JOB: [id number] 02/08/15 0119 <Electronically signed by Solomon Morse MD> Date Solomon Morse MD Cosigner Signature (If Indicated): Date CC: Diana Troncoso MD; Naga Ribeiro Date Dictated: 02/07/15 163 Date Transcribed: 02/07/151633 Loan Underwriter: Signed 07-Feb-2015 Discharge Instruction Result: Comments: See Note; NOTES: [facility] Medical Records Department [address] [place] [id number] Discharge Instruction 02/07/15 163 MR#: [id number] Acct: [id number] Name: MALI WALDEN Rep #: [id number] : 1940 74 From: Solomon Morse MD [...] any unexpected problems, contact your doctor. Call [employer] [facility] ([phone]) or report to the closest Emergency Room. Call 911 if necessary. 02/07/151631 <Electronically signed by Solomon Morse MD> Date Solomon Morse MD Cosigner Signature (If Indicated): Date CC: Diana Troncoso MD 18-Jan-2015 Nuclear Stress Test - Treadmil Result: Comments: See Note; NOTES: [facility] Imaging Services [address] [place] [address] STRESS TEST REPORT 01/18/15 0925 MR#: [id number] Acct: [id number] Name: MALI WALDEN Rep #: [id number] : 1940 74 From: Manoj Young MD [...] LVEF of 67%. Manoj Young MD T: [facility] JOB: [id number] 01/18/15 1221 <Chapito jara signed by Manoj Young MD> Date Manoj Young MD CC: Diana Troncoso MD; Manoj Young MD Date Dictated: 01/18/15924 Date Lux scribed: 01/18/15924 Loan Underwriter: Signed 16-Jan-2015 Bilat Scrn Digital AND CAD Result: Comments: See Note; NOTES: [facility] Imaging Services [address] [place] [address] Breast Imaging Report MR#: [id number] Acct: [id number] Name: MALI WALDEN Rep #: : 1940 F 74 From: Archie Alvares MD PCP: Diana Troncoso MD Status: REG CLI Study: Bilpaty Encarnacionn Digital AND CAD Date of Exam: 01/16/15 Exam# [id number] Ordering Dr: Diana Troncoso MD MAMMOGRAPHY - BILATERAL SCREENING REASON FOR EXAM: Female, 74 years old. Routine annual screening examination. PERTINENT HISTORY: Non-contributory. TECHNIQUE: Digital examination. Mediolatera l oblique (MLO) and craniocaudad (CC) views of both breasts were obtained. CAD: CAD was performed on this study. COMPARISON: Comparison is made with prior study dated August 22, 2013 and June 08 013. FINDINGS: Breast Composition: There are scattered areas [...] Archie belle MD at 15:35 EDT Tel [phone], Service support [phone], CC: Diana Troncoso MD Loan Underwriter: Signed 16-Dec-2014 Emergency Department Summary Result: Comments: See Note; NOTES: [facility] Medical Records Department [address] [place] [address] Emergency Department Summary MR#: [id number] Acct: [id number] Name: MALI WALDEN Rep #: [id number] : 1940 74 From: George Colvin DO [...] condition. George Colvin DO T: NTS JOB: [id number] 12/16/14 1607 <Electronically signed by George Colvin DO> Date George Colvin DO Cosigner Signature (If Indicated): Date CC: Diana Troncoso MD Date D ictated: 12/16/141039 Date Transcribed: 12/16/141039 Loan Underwriter: Signed 16-Dec-2014 Discharge Instruction Result: Comments: See Note; NOTES: [facility] Medical Records Department [address] [place] [address] Discharge Instruction 12/16/14 1036 MR#: [id number] Acct: [id number] Name: MALI WALDEN Rep #: [id number] : 1940 74 From: George Colvin DO PCP: Diana Troncoso MD Status: REG ER ED Disposition - Plan for ED Patient: Chief Complaint: Abd Pain Instructions: ED Di verticulitis Prescriptions: Hydrocodone Bitart/Apap 5-325 [[place] 5/325] 1 - 2 tablet PO Q4H [...] problems, contact your doctor. Call [facility] ([phone]) or report to the closest Emergency Room. Call 911 if necessary. 12/16/14 1037 <Electronically signed by George martines DO> Date George Colvin DO Cosigner Signature (If Indicated): Date CC: Diana Troncoso MD 16-Dec-2014 Abdomen/Pelvis without Cont Result: Comments: See Note; NOTES: [facility] Imaging Services [address] [place] [address] CAT Scan Report MR#: [id number] Acct: [id number] Name: MALI WALDEN Rep #: [id number] : 1940 F 74 From: Miguel Tidwell PCP: Diana Troncoso MD Status: REG ER Study: Abdomen/Pelvis without Cont Date of Exam: 12/16/14 Exam# [id number] Ordering Dr: George Colvin DO STUDY: CT [...] Sagittal and coronal images were reconstructed. COMP ARISON: July 30, 2010 FINDINGS: The visualized lung [...] at 10:32 EDT Tel , Service support [phone], CC: Diana wright MD; George Colvin DO Loan Underwriter: Signed 13-Nov-2014 Echocardiogram Complete Result: Comments: See Note; NOTES: [facility] Cardiovascular Services [address] [place] [address] Echo Complete 11/13/14 0720 MR#: [id number] Acct: [id number] Name: MARÍA ELENA WALDEN Rep #: [id number] : 1940 74 From: Manoj Young MD Attending Dr: Manoj Young MD Status: REG CLI Ordering Dr: Manoj Young MD Date: 11/13/14 Location: [facility] Sex: F C Admitted: Procedure This [...] Physician: Diana Troncoso M.D. Performed By: Shyla Vasques, VANITA Elec tronically signed by: Manoj Young MD on 11/13/2014 08:55 PM 11/13/142054 Date Manoj Young MD CC: Diana Troncoso MD; Manoj Young MD Date Dictated: 11/13/14719 Date Transcribed: 11/13/142054 Loan Underwriter: Signed 22-Aug-2014 PT Discharge Summary Result: Comments: See Note; NOTES: [facility] Physical Therapy [place] [id number] [facility] [place], [place] [address] Fax REHABILITATION SERVICES DISCHARGE SUMMARY MR#: [id number] Acct: [id number] Name: MALI WALDEN Rep #: [id number] : 1940 73 From: Anibal Decker Referring [...] program and has a membership here at [facility] as she will continue on her [...] followup. Anibal Decker, PT T: NTS JOB: [id number] <Electronically signed by Anibal Decker > 08/22/14 0746 CC: Signed 02-Jul-2014 Chest PA and Lateral Result: Comments: See Note; NOTES: [facility] Imaging Services [address] [place] [address] Radiology Report MR#: [id number] Acct: [id number] Name: MALI WALDEN Rep #: [id number] : 1940 F 73 From: Rubens Waters MD PCP: Diana Troncoso MD Status: REG CLI Study: Chest PA and Lateral Date of Exam: 07/02/14 Exam# [id number] Ordering Dr: Diana Troncoso MD STUDY: X-RAY [...] at 14:51 EDT Tel , Service support [phone], CC: Diana Troncoso MD Loan Underwriter: Signed 28-Jun-2014 Inital Evaluation - PT Result: Comments: See Note; NOTES: [facility] Physical Therapy [address] [place] [address] Fax REHABILITATION SERVICES INITIAL EVALUATION MR#: [id number] Acct: [id number] Name: MALI WALDEN Rep #: [id number] : 1940 73 From: Anibal Decker Referring Dr.: ELI GARCIA Status: REG RCR Insurance: [employer] MCR E hamilton Date: DATE [...] one fall was on a trip to [place] when the dog walked in front of [...] is a Silver [employer]ne[employer] member here at [facility], but has not been able to get [...] reciprocal heel and toe tapping is good. Rprm-zr-qcit test is good. Re ciprocal hand tapping [...] will score at least 64/80 [facility] to help [...] a week for 4-6 weeks for darren ce exercises and activities, general cardiovascular, upper extremity [...] [employer]. Anibal Decker, PT T: NTS JOB: [id number] <Electronically signed by Anibal Decker > 06/28/14 0929 CC: DD: 0 06/27/14 Signed For Medicare only, by signing this I certify the plan of care. Physicians Signature Date 06-Jun-2014 Chest PA and Lateral Result: Comments: See Note; NOTES: [facility] Imaging Services [address] [place] [address] Radiology Report MR#: [id number] Acct: [id number] Name: MALI WALDEN Rep #: [id number] : 1940 F 73 From: Archie Alvares MD PCP: Diana Troncoso MD Status: REG CLI Study: Chest PA and Lateral Date of Exam: 06/06/14 Exam# [id number] Ordering Dr: Jacquelyn Garcia STUDY: X-RAY CHEST [...] Archie Alvares MD at 15:28 EST Tel [phone], Service support [phone], CC: Jacquelyn Garcia; Diana Troncoso MD Loan Underwriter: Signed 09-Apr-2014 Knee 4 or More Views Result: Comments: See Note; NOTES: [facility] Imaging Services [address] [place] [address] Radiology Report MR#: [id number] Acct: [id number] Name: MALI WALDEN Rep #: [id number] : 1940 F 73 From: Rubens Waters MD PCP: Diana Troncoso MD Status: REG CLI Study: Knee 4 or More Views Date of Exam: 04/09/14 Exam# [id number] Ordering Dr: Katerine Campo DO STUDY: X-RAY [...] MD at 12:15 EST , Service support [phone], CC: Diana Troncoso MD; Katerine Campo DO Loan Underwriter: Signed 09-Apr-2014 Ribs Unil 2V No CXR Result: Comments: See Note; NOTES: [facility] Imaging Services [address] [place] [address] Radiology Report MR#: [id number] Acct: [id number] Name: MALI WALDEN Rep #: [id number] : 1940 F 73 From: Rubens Waters MD PCP: Diana Troncoso MD Status: REG CLI Study: Ribs Unil 2V No CXR Date of Exam: 04/09/14 Exam# [id number] Ordering Dr: Katerine Campo DO STUDY: X-RAY [...] MD at 12:11 EST , Service support [phone], CC: Diana Troncoso MD; Katerine Campo DO Loan Underwriter: Signed 07-Feb-2014 Liver Result: Comments: See Note; NOTES: [facility] Imaging Services [address] [place] [address] Ultrasound Report MR#: [id number] Acct: [id number] Name: MALI WALDEN Rep #: [id number] : 1940 F 73 From: Archie Alvares MD PCP: Diana Troncoso MD Status: REG CLI Study: Liver Date of Exam: 02/07/14 Exam# [id number] Ordering Dr: Jacquelyn Garcia STUDY: ABDOMINAL ULTRASOUND [...] Alvares MD at 10:36 ED T Tel [phone], Service support [phone], CC: Jacquelyn Garcia; Diana Troncoso MD Loan Underwriter: Signed 25-Sep-2013 Ribs Unil 2V No CXR Result: Comments: See Note; NOTES: [facility] Imaging Services [address] [place] [address] Radiology Report MR#: [id number] Acct: [id number] Name: MALI WALDEN Rep #: [id number] : 1940 From: Archie Alvares MD PCP: Diana Troncoso MD Status: REG CLI Study: Ribs Unil 2V No CXR Date of Exam: 09/25/13 Exam# [id number] Ordering Dr: Jacquelyn Garcia STUDY: X-RAY - [...] Archie Alvares MD at 15:44 EDT Tel [phone], Service support [phone], Fax CC: Jacquelyn Garcia; Diana Troncoso MD Loan Underwriter: Signed 22-Aug-2013 Bilat Scrn Digital & CAD Result: Comments: See Note; NOTES: [facility] Imaging Services [address] [place] [address] Breast Imaging Report MR#: [id number] Acct: [id number] Name: MALI WALDEN Rep #: [id number] : 1940 72 From: Archie Alvares MD PCP: Diana Troncoso MD Status: REG CLI Exam# [id number] Ordering Dr: Diana Troncoso MD MAMMOGRAPHY - [...] of a clinically suspicious abnormality. Electronically Signed: Lina Monson at 11:24 EDT Tel [phone], Service support [phone], CC: Diana Troncoso MD Loan Underwriter: Signed Immunization Name Dates Details Influenza (3 years and up) on: 08-Feb-2007 Comments: given in left deltoid, 0.5cc, lot#[id number], exp.10.17.07 WF Influenza (3 years and up) on: 20-Mar-2008 Comments: Lot #[id number]-1/30/08Site-right deltoidDose0.5mlgiven by Caro Vail LPN Influenza (3 years and up) on: 11-Jan-2009 Comments: Lot #[id number] 4PExp-08/2009Site-Left deltoidgiven by:FLIP Pneumococcal (2 years and up) on: 07-Jan-2015 Comments: Site: Deltoid (Left) Lot #: <Undefined> Pneumococcal conjugate vaccine, 13 valent, IM Comments: winter 2016 [facility] Family History Unknown Family Member Name Dates Details Brother 1 Comments: Bladder CA, prostate, smoker Status: Active Brother 2 Comments: of [place] 66yo, obese Status: Active Daughter 1 Comments: [...] smoker Vital Signs Date Test Result Details 89-Pzl-343689:01 Temperature 97.6 f Comments: Method: Oral Pulse 70 /min Comments: Pattern: Regular Respiration Rate 18 /min O2 SAT 98 % Comments: Room air BP Systolic 130 mm[Hg] Comments: Patient Position: Sitting BP Diastolic 70 mm[Hg] Comments: Patient Position: Sitting Weight 162 lb 17-Lgw-95556:44 Temperature 97.6 f Comments: Method: Temporal Pulse [...] kg/m2 Body Surface Area Calculated 1.76 m2 :53 Pulse 58 /min Comments: Pattern: Regular Respiration [...] copy of this report has been sent [phone].PATIENT NOT FASTINGPERFORMED BY: PhotoSpotLandM[facility]6[address] [facility] [id number] Info rmation: FX [phone] (92751) ALT (SGPT) 47 [iU]/L (Abnormal) Range: 0-32 AST (SGOT) 32 [iU]/L (Normal) Range: 0-40 Alkaline Phosphatase 90 [iU]/L (Normal) Range: 39-117 Bilirubin, Direct 0.19 mg/dL (Normal) Range: 0.00-0.40 Bilirubin, Total 0.7 mg/dL (Normal) Range: 0.0-1.2 Albumin 4.5 g/dL (Normal) Range: 3.5-4.8 Protein, Total 6.8 g/dL (Normal) Range: 6.0-8.5 :20 LDL Cholesterol (Direct) Comments: PATIENT WAS FASTINGPERFORMED BY: [facility]uBayonne Medical CenterKeufpg6493 [facility] [id number] LDL Chol. (Direct) 83 mg/dL (Normal) Range: 0-99 : Written Authorization WAR (Normal) Comments: PATIENT WAS FASTINGPERFORMED BY: [facility]LandM[facility]6[address] [facility] [id number] 20 Comments: Written Authorization Received.Authorization received from EDUARDO BATEMAN LPN [id number] by Holley Ma :20 Metabolic Panel, Comments: PATIENT WAS FASTINGPERFORMED BY: [place] [address] [facility] [id number] BY: [facility]6[address] [facility] [id number] Comprehensive (41105) ALT (SGPT) 38 [iU]/L (Abnormal) Range: 0-32 [...] 8-27 Glucose 126 mg/dL (Abnormal) Range: 65-99 44-Ldx-69957:20 LIPOPROTEIN, BLD, BY NMR Comments: PATIENT WAS FASTINGPERFORMED BY: BN [facility] [address] [id number] BY: CB [facility] Ehlnth1386 [facility] [id number] (94776) LP-IR Score 66 (Abnormal) Comments: INSULIN RESISTANCE MARKER <--Insulin Sensitive Insulin Resistant--> Percentile in Reference PopulationInsulin Resistance ScoreLP-IR Score Low 25th 50th 75th High <27 27 45 63 >63LP-IR Score is inaccurate if patient is non-fasting. .The LP-IR score is a laboratory developed [facility] that has beenassociated with insulin resistance [...] were developed and their performance characteristicsdetermined by [employer]. These assays have not been cleared by [...] 1600 - 2000 Very High > 2000 27-Ote-55526:24 HEPATIC FUNCTION PANEL Comments: PATIENT WAS FASTINGPERFORMED BY: BN LabCoNancy V[place] [address] [facility] [id number] BY: LabCoBayonne Medical CenterWrepkz1880 [facility] [id number] (43115) ALT (SGPT) 34 [iU]/L (Abnormal) Range: 0-32 AST (SGOT) 30 [iU]/L (Normal) Range: 0-40 Alkaline Phosphatase 102 [iU]/L (Normal) Range: 39-117 Bilirubin, Direct 0.14 mg/dL (Normal) Range: 0.00-0.40 Bilirubin, Total 0.7 mg/dL (Normal) Range: 0.0-1.2 Albumin 4.4 g/dL (Normal) Range: 3.5-4.8 Protein, Total 6.7 g/dL (Normal) Range: 6.0-8.5 88-Yhu-86064:24 LIPOPROTEIN, BLD, BY NMR Comments: PATIENT WAS FASTINGPERFORMED BY: BN [facility] [address] [id number] BY: CB [facility] Zrdtfx4883 [facility] [id number]; fu 8-20 DB (18142) LP-IR Score 64 (Abnormal) Comments: INSULIN RESISTANCE MARKER <--Insulin Sensitive Insulin Resistant--> Percentile in Reference PopulationInsulin Resistance ScoreLP-IR Score Low 25th 50th 75th High <27 27 45 63 >63LP-IR Score is inaccurate if patient is non-fasting. .The LP-IR score is a laboratory developed [facility] that has beenassociated with insulin resistance [...] were developed and their performance characteristicsdetermined by [employer]. These assays have not been cleared by [...] 1600 - 2000 Very High > 2000 19-Xty-708888:19 Basic Metabolic Profile (BMP) Comments: Order Date: 07/30/17Order Info: 0667-1 - [facility] [address] [place], [address] GAP 10 (Normal) Range: 5-15 CO2 27.0 [...] A.D.A. criteria.Please note revised GLUCOSE reference range avudgkemn49/02/2018. 40-Wmt-424545:19 CBC W/Diff, Automated Comments: Order Date: 07/30/17Order Info: 0184-1 - CBCDOrder Info: 64594-9 - [facility] Cwyhehpphz0771 [facility] Access HospitalvikasDalton, [place], [address] Absolute Lymph 2.02 {X10_3/ul} (Normal) Range: 0.83-4.51 [...] 4.2-5.4 WBC 10.0 K/mm3 (Normal) Range: 4.4-11.0 :19 Erythrocyte Sed Rate Comments: Order Date: 07/30/17Order Info: 0184-1 - CBCDOrder Info: 70431-6 - SEDH[facility] [address] [place], [place], [address] SED RATE 26 mm/h (Normal) Range: 0-30 39-Liz-889291:59 Urinalysis, Office (82598) UA - LEUKOCYTE ESTERASE Negative (Normal) UA - NITRITE Negative (Normal) URINE UROBILINGN SILVESTRE TIMED Normal mg/dL (Normal) UA - PROTEIN Negative mg/dL (Normal) UA - PH 7 (Normal) UA - BLOOD Negative (Normal) UA - SPECIFIC GRAVITY 1.015 (Normal) UA - KETONES Negative mg/dL (Normal) UA - BILIRUBIN Negative (Normal) UA - GLUCOSE Negative (Normal) 4-Qrk-480332:01 Basic Metabolic Profile (BMP) Comments: [facility] [address] [facility] [address] [place], [place], [address] GAP 7 (Normal) Range: 5-15 CO2 26.0 [...] Comments: Please note revised GLUCOSE reference range dqaarajkn15/02/2018. 7-Qif-287299:01 CBC-Complete Blood Cnt No Diff Comments: [facility] [address] [place], [place], [address] MPV 10.5 fL (Normal) Range: 6.2-12.0 PLT [...] 4.2-5.4 WBC 7.2 K/mm3 (Normal) Range: 4.4-11.0 6-Rpt-485741:01 Prothrombin Time w/INR Comments: [facility] [address] [place], [place], [address] INR 1.0 (Normal) PROTIME 12.7 s (Normal) Range: 11.7-14.9 1-Usl-189561:01 Urinalysis, Complete Comments: How was Urine Obtained? RESEARCH & ANALYTICS MANAGER TO SPECIFYWMercy Health Willard Hospital [address] [place], [address] MUCUS, URINE 0 SEEN {/hpf} (Normal) [...] (Normal) CLARITY Clear (Normal) COLOR Yellow (Normal) 4-Efp-219950:37 Urinalysis, Office (58435) UA - LEUKOCYTE ESTERASE Negative (Normal) UA - NITRITE Negative (Normal) URINE UROBILINGN SILVESTRE TIMED 2 mg/dL (Normal) UA - PROTEIN Negative mg/dL (Normal) UA - PH 7.0 (Normal) UA - BLOOD Negative (Normal) UA - SPECIFIC GRAVITY 1.010 (Normal) UA - KETONES Negative mg/dL (Normal) UA - BILIRUBIN Negative (Normal) UA - GLUCOSE Negative (Normal) 56-Snm-426049:00 URINE RASHAD CULTURE-SILVESTRE COL Comments: PATIENT NOT FASTINGPERFORMED BY: [facility] Uxshvo7033 [facility] [id number] Information: SRC:UC COUNT (60909) Antimicrobial MIHEAD (Normal) Comments: S = Susceptible; [...] mL (Abnormal) Urine Final report Culture,Comprehensive (Abnormal) 01-Cca-83069:06 Urinalysis, Office (44157) UA - LEUKOCYTE ESTERASE Large (Normal) UA - NITRITE Positive (Normal) URINE UROBILINGN SILVESTRE TIMED 2 mg/dL (Normal) UA - PROTEIN 100 mg/dL (Normal) UA - PH 5 (Abnormal) UA - BLOOD Non Hemolyzed Moderate (Normal) UA - SPECIFIC GRAVITY 1.015 (Normal) UA - KETONES Small mg/dL (Normal) UA - BILIRUBIN Small (Normal) UA - GLUCOSE 100 (Abnormal) :42 METABOLIC PANEL, Comments: PATIENT WAS FASTINGPERFORMED BY: [employer] [id number] BY: ILIR [employer] Efnynt9490 [facility] [id number] [facility] (89099) ALT (SGPT) 45 [iU]/L (Abnormal) Range: 0-32 [...] 8-27 Glucose 117 mg/dL (Abnormal) Range: 65-99 :42 LIPOPROTEIN, BLD, BY NMR Comments: PATIENT WAS FASTINGPERFORMED BY: [employer] [id number] BY: LabHarry S. Truman Memorial Veterans' HospitalWfomyu[address] [facility] [id number] (06145) LP-IR Score 52 (Abnormal) Comments: INSULIN RESISTANCE MARKER <--Insulin Sensitive Insulin Resistant--> Percentile in Reference PopulationInsulin Resistance ScoreLP-IR Score Low 25th 50th 75th High <27 27 45 63 >63LP-IR Score is inaccurate if patient is non-fasting. .The LP-IR score is a laboratory developed [facility] that has beenassociated with insulin resistance [...] 2000 Very High > 2000 23-Aug-20179:42 TSH (33433) Comments: PATIENT WAS FASTINGPERFORMED BY: [employer] [address] [id number] BY: [employer]70 Xavier RoadDublin [place] [id number] TSH 2.070 {uIU/mL} (Normal) Range: 0.450-4.500 4-Eph-077135:34 Vitamin B-12 (cyanocobalamin) Comments: these ones today; PATIENT NOT FASTINGPERFORMED BY: [employer] [id number] BY: [employer] Javnrx6201 Xavier RoadDublin [place] [id number] ([address]) Vitamin B12 677 pg/mL (Normal) Range: 211-946 2-Wnh-386408:34 RPR (RAPID PLASMA Comments: PATIENT NOT FASTINGPERFORMED BY: [employer] [id number] BY: [employer] Fyfbul3654 Xavier RoadDublin [place] [id number] REAGIN) (72315) RPR Non Reactive (Normal) 8-Vly-443728:34 Methymalonic Acid, Serum Comments: PATIENT NOT FASTINGPERFORMED BY: [employer] [id number] BY: [employer] Twifbn6631 Xavier RoadDublin [place] [id number] Information: [id number], 907622 (86504) Methylmalonic Acid, Serum 176 nmol/L (Normal) Range: 0-378 6-Gyd-755066:18 HEPATIC FUNCTION PANEL Comments: PATIENT WAS FASTINGPERFORMED BY: [employer] [id number] BY: [facility]6370 [facility] [id number] (30748) ALT (SGPT) 36 [iU]/L (Abnormal) Range: 0-32 AST (SGOT) 32 [iU]/L (Normal) Range: 0-40 Alkaline Phosphatase, S 104 [iU]/L (Normal) Range: 39-117 Bilirubin, Direct 0.13 mg/dL (Normal) Range: 0.00-0.40 Bilirubin, Total 0.5 mg/dL (Normal) Range: 0.0-1.2 Albumin, Serum 4.6 g/dL (Normal) Range: 3.5-4.8 Protein, Total, Serum 6.7 g/dL (Normal) Range: 6.0-8.5 8-Gsf-039375:18 LIPOPROTEIN, BLD, BY NMR Comments: PATIENT WAS FASTINGPERFORMED BY: [employer] [id number] BY: AiruTiffany [place] [address] [facility] [id number] (75510) LP-IR Score 66 (Abnormal) Comments: INSULIN RESISTANCE MARKER <--Insulin Sensitive Insulin Resistant--> Percentile in Reference PopulationInsulin Resistance ScoreLP-IR Score Low 25th 50th 75th High <27 27 45 63 >63LP-IR Score is inaccurate if patient is non-fasting. .The LP-IR score is a laboratory developed [facility] that has beenassociated with insulin resistance [...] were developed and their performance characteristicsdetermined by [employer]. These assays have not been cleared by [...] 1600 - 2000 Very High > 2000 45-Dsm-884113:25 CBC With Differential/Platelet Comments: PATIENT NOT FASTINGPERFORMED BY: [facility]6370 [facility] [id number] Information: collect by nurse SRC:ADWOA Immature Grans (Abs) 0.0 {x10E3/uL} (Normal) Range: [...] 3.77-5.28 WBC 6.9 {x10E3/uL} (Normal) Range: 3.4-10.8 68-Fgi-223016:25 Comp. Metabolic Panel (14) Comments: PATIENT NOT FASTINGPERFORMED BY: LabCoBayonne Medical CenterGsluxl7437 [facility] [id number] ALT (SGPT) 37 [iU]/L (Abnormal) Range: 0-32 [...] umol/L (Normal) Comments: PATIENT NOT FASTINGPERFORMED BY: [employer] Intimates Rzrzem8799 [facility] [id number] 0:25 Plasma Range: 0.0-15.0 62-Eyc-906515:25 Microalb/Creat Ratio, Randm Ur Comments: PATIENT NOT FASTINGPERFORMED BY: BeMe Intimates Hnawnd1460 [facility] [id number] Microalb/Creat Ratio <5.6 {mg/g_creat} (Normal) Range: 0.0-30.0 Microalbumin, Urine <3.0 ug/mL (Normal) Creatinine, Urine 53.7 mg/dL (Normal) 14-Sag-000683:25 Urinalysis, Routine Comments: PATIENT NOT FASTINGPERFORMED BY: BeMe Intimates [facility]At[facility] [id number] Microscopic Examination MICNIP (Normal) Comments: Microscopic not indicated and not performed. Nitrite, Urine Negative (Normal) Urobilinogen,Semi-Qn 0.2 mg/dL (Normal) Range: 0.2-1.0 Bilirubin Negative (Normal) Occult Blood Negative (Normal) Ketones Negative (Normal) Glucose Negative (Normal) Protein Negative (Normal) WBC Esterase Negative (Normal) Appearance Clear (Normal) Urine-Color Yellow (Normal) pH 7.0 (Normal) Range: 5.0-7.5 Specific [place] 1.014 (Normal) Range: 1.005-1.030 16-Vnn-303248:25 Urine Culture, Routine Comments: PATIENT NOT FASTINGPERFORMED BY: BeMe Intimates Frmevl4377 [facility] [id number] Result 1 LESS (Normal) Comments: Culture shows less than 10,000 colony forming units of bacteria permilliliter of urine. This colony count is not generally consideredto be clinically significant. Urine Culture, Routine Final report (Normal) 04-Rkf-724826:59 URINE RASHAD CULTURE-IDENTIFICATN Comments: PATIENT NOT FASTINGPERFORMED BY: BeMe Intimates Qllzyl7610 [facility] [id number] Information: SRC: ([id number]) Antimicrobial MIHEAD (Normal) Comments: S = Susceptible; [...] mL (Abnormal) Urine Final report Culture,Comprehensive (Abnormal) 9-Zot-497580:01 URINE RASHAD CULTURE-IDENTIFICATN Comments: PATIENT NOT FASTINGPERFORMED BY: [facility]SpotLandM[facility]6370 [facility] [id number] Information: SRC: ([id number]) Result 1 NG36 (Normal) Comments: No growth in 36 - 48 hours. Urine Culture,Comprehensive Final report (Normal) 19-Nov-20169:11 Urinalysis, Office (10845) UA - LEUKOCYTE ESTERASE Large (Normal) UA - NITRITE Positive (Normal) URINE UROBILINGN SILVESTRE TIMED 2 mg/dL (Normal) UA - PROTEIN 30 mg/dL (Normal) UA - PH 6 (Abnormal) UA - BLOOD Negative (Normal) UA - SPECIFIC GRAVITY 1.005 (Normal) UA - KETONES 15 mg/dL (Abnormal) UA - BILIRUBIN Large (Normal) UA - GLUCOSE 100 (Abnormal) 88-Zyg-68930:16 CBC W/Diff, Automated Comments: [facility] Ttziydnemp[address] [place], [place], [address] Absolute Lymph 1.78 {X10_3/ul} (Normal) Range: 0.83-4.51 [...] 4.2-5.4 WBC 5.7 K/mm3 (Normal) Range: 4.4-11.0 8-Bdz-049034:00 HSV CULTURE SCREEN [id number] Comments: PERFORMED BY: [facility]6370 [facility] [id number] Information: SRC:MO (39829) HSV Culture Without Typing Negative (Normal) 28-Rhy-216553:58 URINE RASHAD CULTURE-IDENTIFICATN Comments: PATIENT NOT FASTINGPERFORMED BY: Airu Ebwtms5283 [facility] [id number] Information: SRC:UC (43805) Antimicrobial MIHEAD (Normal) Comments: S = Susceptible; [...] mL (Abnormal) Urine Final report Culture,Comprehensive (Abnormal) 71-Kmp-29393:21 Urinalysis, Office (83999) UA - LEUKOCYTE ESTERASE Moderate (Normal) UA - NITRITE Negative (Normal) URINE UROBILINGN SILVESTRE TIMED 2 mg/dL (Normal) UA - PROTEIN 30 mg/dL (Normal) UA - PH 6.0 (Normal) UA - BLOOD Hemolyzed Large (Normal) UA - SPECIFIC GRAVITY 1.020 (Normal) UA - KETONES Negative mg/dL (Normal) UA - BILIRUBIN Negative (Normal) UA - GLUCOSE Negative (Normal) :32 HgA1C , Office (30317) HgA1C , Office 5.4 % (Normal) Range: 4.6 - 7.1 :36 T4, FREE (THYROXINE) (81476) Comments: PATIENT NOT FASTINGPERFORMED BY: [facility]Land[facility] Uuzlec8416 [facility] [id number] T4,Free(Direct) 1.34 ng/dL (Normal) Range: 0.82-1.77 :36 TSH (54921) Comments: PATIENT NOT FASTINGPERFORMED BY: [facility] Rgghym1734 [facility] [id number] TSH 2.400 {uIU/mL} (Normal) Range: 0.450-4.500 04-Cmq-415369:36 HEPATIC FUNCTION PANEL Comments: PATIENT NOT FASTINGPERFORMED BY: LabCoBayonne Medical CenterXzuiar2693 [facility] [id number] (76594) ALT (SGPT) 59 [iU]/L (Abnormal) Range: 0-32 AST (SGOT) 35 [iU]/L (Normal) Range: 0-40 Alkaline Phosphatase, S 96 [iU]/L (Normal) Range: 39-117 Bilirubin, Direct 0.15 mg/dL (Normal) Range: 0.00-0.40 Comments: Please note reference interval change Bilirubin, Total 0.6 mg/dL (Normal) Range: 0.0-1.2 Albumin, Serum 4.4 g/dL (Normal) Range: 3.5-4.8 Protein, Total, Serum 6.5 g/dL (Normal) Range: 6.0-8.5 :36 Magnesium (77874) Comments: PATIENT NOT FASTINGPERFORMED BY: [facility]CoBay[facility] CenterGutlly7817 [facility] [id number] Magnesium, Serum 2.0 mg/dL (Normal) Range: 1.6-2.3 83-Fdr-874608:36 Metabolic Panel, Basic Comments: PATIENT NOT FASTINGPERFORMED BY: [facility]CoBay[facility] CenterHniyll5242 [facility] [id number] (01427) Calcium, Serum 9.9 mg/dL (Normal) Range: 8.7-10.3 [...] three months (approximately); PATIENT WAS FASTINGPERFORMED BY: [employer] [address] [id number] BY: PhotoSpotLandCo Szglhp5504 [facility] [id number] (75370) T4,Free(Direct) 1.23 ng/dL (Normal) Range: 0.82-1.77 :32 TSH (37347) Comments: in three months (approximately); PATIENT WAS FASTINGPERFORMED BY: [employer] LabMosaic Storage Systemsrp [address] [id number] BY: Celltick Technologieslin6370 [facility] [id number] TSH 3.620 {uIU/mL} (Normal) Range: 0.450-4.500 :32 LIPOPROTEIN, BLD, BY NMR Comments: in three months (approximately); PATIENT WAS FASTINGPERFORMED BY: [employer] [address] [id number] BY: BeMe IntimatesBayonne Medical CenterWlxvfp4742 [facility] [id number] (78655) LP-IR Score 77 (Abnormal) Comments: INSULIN RESISTANCE MARKER <--Insulin Sensitive Insulin Resistant--> Percentile in Reference PopulationInsulin Resistance ScoreLP-IR Score Low 25th 50th 75th High <27 27 45 63 >63LP-IR Score is inaccurate if patient is non-fasting. .The LP-IR score is a laboratory developed i [facility] that has beenassociated with insulin resistance [...] were developed and their performance characteristicsdetermined by [employer]. These assays have not been cleared by [...] 1600 - 2000 Very High > 2000 27-Jym-638312:10 HEPATIC FUNCTION PANEL Comments: in three months (approximately); PATIENT NOT FASTINGPERFORMED BY: LabCoBayonne Medical CenterLebulk7343 [facility] [id number] (14229) ALT (SGPT) 112 [iU]/L (Abnormal) Range: 0-32 [...] three months (approximately); PATIENT WAS FASTINGPERFORMED BY: [employer] [id number] BY: [employer]uru! [facility] [id number] (99453) Homocyst(e)ine, Plasma 9.3 umol/L (Normal) Range: 0.0-15.0 12-Dgm-164155:10 HEPATITIS PANEL (65167) Comments: today do; PATIENT NOT FASTINGPERFORMED BY: Curiosidy70 [employer] [facility] [id number] Hep C Virus Ab 0.2 {s/co_ratio} (Normal) Range: 0.0-0.9 Comments: Negative: < 0.8 Indeterminate: 0.8 - 0.9 Positive: > 0.9 . The CDC recommends that a positive HCV antibody result be followed up with a HCV Nucleic Acid Amplification test (374742). Hep B Core Ab, IgM Negative (Normal) HBsAg Screen Negative (Normal) Hep A Ab, IgM Negative (Normal) :32 HEPATIC FUNCTION PANEL Comments: send copy to Dr. dejesus. do today; PATIENT WAS FASTINGPERFORMED BY: [employer] [id number] BY: BeMe [employer]imates [employer] [facility] [id number]; apt today DB (34771) ALT (SGPT) 43 [iU]/L (Abnormal) Range: 0-32 AST (SGOT) 33 [iU]/L (Normal) Range: 0-40 Alkaline Phosphatase, S 98 [iU]/L (Normal) Range: 39-117 Bilirubin, Direct 0.14 mg/dL (Normal) Range: 0.00-0.40 Bilirubin, Total 0.5 mg/dL (Normal) Range: 0.0-1.2 Albumin, Serum 4.2 g/dL (Normal) Range: 3.5-4.8 Protein, Total, Serum 6.3 g/dL (Normal) Range: 6.0-8.5 26-Oxm-075426:48 HgA1C , Office (28754) HgA1C , Office 5.7 % (Normal) Range: 4.6 - 7.1 30-Hwo-815411:34 FERRITIN (16016) Comments: PATIENT NOT FASTINGPERFORMED BY: Airu Iyyhym0251 XavierKromatidAtrium Health [facility] [id number] Ferritin, Serum 246 ng/mL (Abnormal) Range: 15-150 89-Bij-830944:34 CERULOPLASMIN (48730) Comments: PATIENT NOT FASTINGPERFORMED BY: Airu Iyomqn5568 [facility] [id number] Ceruloplasmin 24.7 mg/dL (Normal) Range: 19.0-39.0 :34 ASM (ANTI SMOOTH MUSCLE Comments: PATIENT NOT FASTINGPERFORMED BY: [employer] [facility] [id number] ANTIBODY) (01498) Actin (Smooth Muscle) Antibody 7 {Units} (Normal) Range: 0-19 Comments: Negative 0 - 19 Weak positive 20 - 30 Moderate to strong positive >30 . Actin Antibodies are found in 52-85% of patients with autoimmune hepatitis or chronic active hepatitis and in 22% of patients with primary biliary cirrhosis. 29-Wpk-714526:34 ANTI-LIVER/KIDNEY MICROSOMAL Comments: PATIENT NOT FASTINGPERFORMED BY: [employer] XavierKromatidAtrium Health [facility]cy [id number] ANTIBODY (82024) Thyroid Peroxidase (TPO) Ab 9 {IU/mL} (Normal) Range: 0-34 97-Lmx-954682:34 JESS (ANTINUCLEAR ANTIBODY) Comments: PATIENT NOT FASTINGPERFORMED BY: Airu Eqtbsl8426 [facility] [id number] (57770) JESS Direct Negative (Normal) 18-Niz-76121:33 Microscopic Examination Comments: PATIENT WAS FASTINGPERFORMED BY: [facility]LandL[facility] Ctzfyl5173 [facility] [id number] Bacteria Few (Normal) Mucus Threads Present (Normal) Epithelial Cells (non renal) 0-10 {/hpf} (Normal) Range: 0 - 10 RBC 0-2 {/hpf} (Normal) Range: 0 - 2 WBC 0-5 {/hpf} (Normal) Range: 0 - 5 82-Zit-881667:51 Rapid Flu (63095 x 2) Influenza A Ag neg a and b (Normal) 9-Oje-948800:20 URINE RASHAD CULTURE-IDENTIFICATN Comments: PATIENT NOT FASTINGPERFORMED BY: Airu Pozdal8230 [facility] [id number] Information: [id number] (56437) Antimicrobial MIHEAD (Normal) Comments: S = Susceptible; [...] Final report Culture,Comprehensive (Abnormal) :18 Urinalysis, Office (70048) UA - GLUCOSE Negative (Normal) UA - BILIRUBIN Negative (Normal) UA - KETONES Negative mg/dL (Normal) UA - SPECIFIC GRAVITY 1.010 (Normal) UA - BLOOD Hemolyzed Trace (Normal) UA - PH 5 (Abnormal) UA - PROTEIN Negative mg/dL (Normal) URINE UROBILINGN SILVESTRE TIMED Normal mg/dL (Normal) UA - NITRITE Positive (Normal) UA - LEUKOCYTE ESTERASE Trace (Normal) :33 URINALYSIS, W/ MICRO (63049) Comments: PATIENT WAS FASTINGPERFORMED BY: BeMe IntimatesBayonne Medical CenterSbcjsk2432 [facility] [id number] Microscopic Examination See below: (Normal) Comments: Microscopic was indicated and was performed. Nitrite, Urine Negative (Normal) Urobilinogen,Semi-Qn 0.2 mg/dL (Normal) Range: 0.2-1.0 Bilirubin Negative (Normal) Occult Blood Negative (Normal) Ketones Negative (Normal) Glucose Negative (Normal) Protein Negative (Normal) WBC Esterase 1+ (Abnormal) Appearance Clear (Normal) Urine-Color Yellow (Normal) pH 7.0 (Normal) Range: 5.0-7.5 Specific [place] 1.016 (Normal) Range: 1.005-1.030 :33 METABOLIC PANEL, COMPREHENSIVE Comments: PATIENT WAS FASTINGPERFORMED BY: [employer] Cvsdbn8228 [facility] [id number] (63220) ALT (SGPT) 51 [iU]/L (Abnormal) Range: 0-32 [...] mg/dL (Abnormal) Range: 65-99 :33 LIPID PANEL (80281) Comments: PATIENT WAS FASTINGPERFORMED BY: Curiosidy70 [facility] [id number] LDL/HDL Ratio 3.8 {ratio_units} (Abnormal) Range: 0.0-3.2 [...] Cholesterol, Total 208 mg/dL (Abnormal) Range: 100-199 :33 CBC with auto diff Comments: PATIENT WAS FASTINGPERFORMED BY: [employer] Fycpyf3242 [facility] [id number] Information: [id number]; [address] (71624) Immature Grans (Abs) 0.0 {x10E3/uL} (Normal) Range: [...] (Normal) Range: 3.4-10.8 :48 HgA1C , Office (66526) HgA1C , Office 6.3 % (Normal) Range: 4.6 - 7.1 :59 METABOLIC PANEL, COMPREHENSIVE Comments: PATIENT WAS FASTINGPERFORMED BY: [facility]CoBay[facility] Medical CenterYrnigc9016 [facility] [id number] (88690) ALT (SGPT) 44 [iU]/L (Abnormal) Range: 0-32 [...] mg/dL (Abnormal) Range: 65-99 :59 LIPID PANEL (85322) Comments: PATIENT WAS FASTINGPERFORMED BY: [facility]amediaAt[facility] Health [facility] [id number] LDL/HDL Ratio 4.1 {ratio_units} (Abnormal) Range: 0.0-3.2 [...] auto diff Comments: PATIENT WAS FASTINGPERFORMED BY: [employer]! [facility] [id number] Information: [id number] (41208) Immature Grans (Abs) 0.0 {x10E3/uL} (Normal) Range: [...] {x10E3/uL} (Normal) Range: 3.4-10.8 :55 Urinalysis, Office (05581) UA - LEUKOCYTE ESTERASE Small (Normal) UA - NITRITE Negative (Normal) URINE UROBILINGN SILVESTRE TIMED Normal mg/dL (Normal) UA - PROTEIN Negative mg/dL (Normal) UA - PH 7 (Normal) UA - BLOOD Negative (Normal) UA - SPECIFIC GRAVITY 1.010 (Normal) UA - KETONES Negative mg/dL (Normal) UA - BILIRUBIN Negative (Normal) UA - GLUCOSE Negative (Normal) :45 CBC W/Diff, Automated Comments: Test performed at:[facility] Ctlfvleaic87[address] [place], [place] [address] Absolute Lymph 2.36 {X10_3/ul} (Normal) Range: 0.83-4.51 [...] 4.2-5.4 WBC 13.0 K/mm3 (Abnormal) Range: 4.4-11.0 42-Hwm-55389:45 Comprehensive Metabolic Profil Comments: Test performed at:[facility] Ttjsjyuqsi57[address] [place] [address] GAP 5 (Normal) Range: 5-15 CO2 27.0 [...] Comments: Please note revised CREATININE reference range ffgmttqem33/22/2015. BUN 15 mg/dL (Normal) Range: 7-18 GLU 134 mg/dL (Abnormal) Range: 70-110 Comments: Fasting Glucose result greater than or equal to 126 mg/dLsuggests DIABETES MELLITUS per A.D.A. criteria. :45 Lipase Comments: Test performed at:[facility] Iohzdocxxs[address] [place] [address] LIPASE 215 U/L (Normal) Range: 73-393 :32 Urinalysis, Complete Comments: Order Date: 12/16/14How was Urine Obtained? CLEAN CATCHTest performed at:[facility] [address] [place], [place] [address] MUCUS, URINE 0 SEEN {/hpf} (Normal) BACTERIA [...] Panel, Comprehensive Comments: PATIENT NOT FASTINGPERFORMED BY: [facility]uBayonne Medical CenterXygamo7252 [facility] [id number] (98992) ALT (SGPT) 44 [iU]/L (Abnormal) Range: 0-32 [...] Glucose, Serum 106 mg/dL (Abnormal) Range: 65-99 :31 CBC, Platelets & Auto Diff Comments: PATIENT NOT FASTINGPERFORMED BY: PhotoSpotLandMun[facility]6370 [facility] [id number] Information: [id number] (03808) Immature Grans (Abs) 0.0 {x10E3/uL} (Normal) Range: [...] {x10E3/uL} (Normal) Range: 3.4-10.8 :05 Rapid Flu (86045 x 2) Comments: pos A Influenza A Ag positive A (Normal) :55 LMOIB-KDLJCNTONQB-SIGSJ (55281) Comments: today; PATIENT NOT FASTINGPERFORMED BY: [facility]CoBay[facility] CenterOzikky3634 [facility] [id number] AFP, Serum, Tumor Marker 5.4 ng/mL (Normal) Range: 0.0-8.3 Comments: Santiago ECLIA methodology :55 HEPATITIS PANEL (67532) Comments: today; PATIENT NOT FASTINGPERFORMED BY: [facility]6370 [facility] [id number] Information: [id number] Hep C Virus Ab <0.1 {s/co_ratio} (Normal) Range: 0.0-0.9 Comments: Negative: < 0.8 Indeterminate: 0.8 - 0.9 Positive: > 0.9 . In order to reduce the incidence of a false positive result, the [facility] recommends that all s/co ratios between 1.0 and 10.9 be confirmed by a more specific supplemental or PCR testing. [facility] offers HCV Ab w/Reflex to Verification test #[id number]. Hep B Core Ab, IgM Negative (Normal) HBsAg Screen Negative (Normal) Hep A Ab, IgM Negative (Normal) :21 HEPATIC FUNCTION PANEL Comments: repeat in 6 weeks around ; PATIENT NOT FASTINGPERFORMED BY: [facility]6370 [facility] [id number] Information: [id number] (84074) ALT (SGPT) 38 [iU]/L (Abnormal) Range: 0-32 AST (SGOT) 28 [iU]/L (Normal) Range: 0-40 Alkaline Phosphatase, S 124 [iU]/L (Abnormal) Range: 39-117 Bilirubin, Direct 0.15 mg/dL (Normal) Range: 0.00-0.40 Bilirubin, Total 0.6 mg/dL (Normal) Range: 0.0-1.2 Albumin, Serum 4.2 g/dL (Normal) Range: 3.5-4.8 Protein, Total, Serum 6.5 g/dL (Normal) Range: 6.0-8.5 85-Kvt-515096:09 Microscopic Examination Comments: PATIENT WAS FASTINGPERFORMED BY: [facility]6370 [facility] [id number] Bacteria Few (Normal) Epithelial Cells (non renal) 0-10 {/hpf} (Normal) Range: 0 - 10 RBC 0-2 {/hpf} (Normal) Range: 0 - 2 WBC 11-30 {/hpf} (Abnormal) Range: 0 - 5 27-Pjh-723421:50 HgA1C , Office (35788) HgA1C , Office 5.8 % (Normal) Range: 4.6 - 7.1 :09 URINALYSIS, W/ MICRO (46305) Comments: PATIENT WAS FASTINGPERFORMED BY: AiruBayonne Medical CenterOtakxt3621 [facility] [id number] Microscopic Examination See below: (Normal) Comments: Microscopic was indicated and was performed. Nitrite, Urine Negative (Normal) Urobilinogen,Semi-Qn 0.2 mg/dL (Normal) Range: 0.0-1.9 Bilirubin Negative (Normal) Occult Blood Negative (Normal) Ketones Negative (Normal) Glucose Negative (Normal) Protein Negative (Normal) WBC Esterase 3+ (Abnormal) Appearance Clear (Normal) Urine-Color Yellow (Normal) pH 7.0 (Normal) Range: 5.0-7.5 Specific [place] 1.014 (Normal) Range: 1.005-1.030 :09 METABOLIC PANEL, COMPREHENSIVE Comments: PATIENT WAS FASTINGPERFORMED BY: [facility]uBayonne Medical CenterXdmpde8024 [facility] [id number] (85232) ALT (SGPT) 41 [iU]/L (Abnormal) Range: 0-32 [...] to prolonged exposure of serum to cells. 28-Bwj-674627:09 LIPID PANEL (29277) Comments: PATIENT WAS FASTINGPERFORMED BY: coJuvo6370 [facility] [id number] VLDL Cholesterol Kelsi VLDLCH mg/dL (Normal) Range: [...] Cholesterol, Total 233 mg/dL (Abnormal) Range: 100-199 04-Wdh-227560:09 CBC W/AUTO DIFF WBC Comments: PATIENT WAS FASTINGPERFORMED BY: coJuvo6370 [facility] [id number] Information: [id number] (15192) Immature Grans (Abs) 0.0 {x10E3/uL} (Normal) Range: [...] CREATININE RATIO Comments: PATIENT WAS FASTINGPERFORMED BY: Curiosidy70 [facility] [id number] (17631) AND (11532) Microalb/Creat Ratio 2.7 {mg/g_creat} (Normal) Range: 0.0-30.0 Microalbumin, Urine 1.5 ug/mL (Normal) Range: 0.0-17.0 Creatinine, Urine 54.8 mg/dL (Normal) Range: 15.0-278.0 :39 METABOLIC PANEL, COMPREHENSIVE Comments: PATIENT WAS FASTINGPERFORMED BY: Curiosidy70 [facility] [id number] (42434) ALT (SGPT) 41 [iU]/L (Abnormal) Range: 0-32 [...] mg/dL (Abnormal) Range: 65-99 :39 LIPID PANEL (64268) Comments: PATIENT WAS FASTINGPERFORMED BY: Curiosidy70 [facility] [id number] VLDL Cholesterol Kelsi VLDLCH mg/dL (Normal) Range: [...] MANUAL DIFF Comments: PATIENT WAS FASTINGPERFORMED BY: Curiosidy70 [facility] [id number] Information: [id number] (75966) Immature Grans (Abs) 0.0 {x10E3/uL} (Normal) Range: [...] in 8 weeks; PATIENT WAS FASTINGPERFORMED BY: LabCoBayonne Medical CenterPzahvk6933 [facility] [id number] (26787) Bilirubin, Direct 0.12 mg/dL (Normal) Range: 0.00-0.40 :35 Blood Glucose , Office (72979) Blood Glucose , Office 161 (Normal) 85-Uwu-987978:35 HgA1C , Office (62322) HgA1C , Office 5.6 % (Normal) Range: 4.6 - 7.1 :36 TSH (94951) Comments: Forward to Dr Avery Cobb, [phone]; PATIENT WAS FASTINGPERFORMED BY: [facility] Zcbzjy0222 [facility] [id number] TSH 2.620 {uIU/mL} (Normal) Range: 0.450-4.500 :36 CBC with manual diff Comments: Forward to Dr Avery Cobb, [place] [phone]; PATIENT WAS FASTINGPERFORMED BY: [facility] Axieoh0556 [facility] [id number] Informat ion: [id number] (23172) Immature Grans (Abs) 0.0 {x10E3/uL} (Normal) Range: [...] Comprehensive Comments: Forward to Dr Avery Cobb, [place], [phone]; PATIENT WAS FASTINGPERFORMED BY: [facility]iaAt[facility] [id number] (31277) ALT (SGPT) 33 [iU]/L (Abnormal) Range: 0-32 [...] Glucose, Serum 119 mg/dL (Abnormal) Range: 65-99 8-Qsr-638320:29 URINE RASHAD CULTURE-SILVESTRE COL Comments: PATIENT NOT FASTINGPERFORMED BY: ViamediaDublin [place] [id number] Information: SRC:UR [id number] COUNT (46782) Result 1 ENTEAE (Normal) Comments: Enterobacter aerogenes1,000 Colonies/mL S = Susceptible; I = Intermediate; R = Resistant P = Positive; N = Negative MICS are expressed in micrograms per mL A ntibiotic RSLT#1 RSLT#2 RSLT#3 RSLT#4Amoxicillin/Clavulanic Acid RCefazolin RCefepime SCeftriaxone SCefuroxime SCephalothin RCiprofloxacin SErtapenem SGentamicin SImipenem SLevofloxacin SNitrofurantoin RPiperacillin STetracycline STobramycin STrimethoprim/Sulfa S Urine Final report (Normal) Culture,Comprehensiv e 9-Ijz-658142:14 Urinalysis, Office (75762) UA - LEUKOCYTE ESTERASE Large (Normal) UA - NITRITE Negative (Normal) URINE UROBILINGN SILVESTRE TIMED Normal mg/dL (Normal) UA - PROTEIN Negative mg/dL (Normal) UA - PH 7 (Normal) UA - BLOOD Hemolyzed Small (Normal) UA - SPECIFIC GRAVITY 1.015 (Normal) UA - KETONES Negative mg/dL (Normal) UA - BILIRUBIN Negative (Normal) UA - GLUCOSE Negative (Normal) 12-Zod-861560:22 URINE RASHAD CULTURE-SILVESTRE COL Comments: PATIENT NOT FASTINGPERFORMED BY: [facility] Jvlvpi8942 [facility] [id number] Information: SRC:UR [id number] COUNT (58368) Antimicrobial MIHEAD (Normal) Comments: S = Susceptible; [...] mL (Normal) Urine Final report Culture,Comprehensive (Normal) 69-Idx-543720:24 Urinalysis, Office (48400) UA - BILIRUBIN Negative (Normal) UA - BLOOD Negative (Normal) UA - GLUCOSE Negative (Normal) UA - KETONES Negative mg/dL (Normal) UA - LEUKOCYTE ESTERASE Trace (Normal) UA - NITRITE Negative (Normal) UA - PH 7.0 (Normal) UA - PROTEIN Negative mg/dL (Normal) UA - SPECIFIC GRAVITY 1.015 (Normal) URINE UROBILINGN SILVESTRE TIMED 2 mg/dL (Normal) 54-Ocw-84087:28 Metabolic Panel, Basic Comments: PATIENT NOT FASTINGPERFORMED BY: [employer] [facility] [id number] Information: [id number] (76761) Calcium, Serum 10.1 mg/dL (Normal) Range: 8.6-10.2 [...] Glucose, Serum 94 mg/dL (Normal) Range: 65-99 78-Foh-43600:57 MAGNESIUM (74518) Comments: PATIENT NOT FASTINGPERFORMED BY: [employer] Eddpfq7019 [facility] [id number] Magnesium, Serum 1.9 mg/dL (Normal) Range: 1.6-2.6 19-Kre-14188:57 Metabolic Panel, Basic Comments: PATIENT NOT FASTINGPERFORMED BY: [employer] Xfjdya9480 [facility] [id number] Information: ADD [id number] AND DRAW FEE 99 9385 (25745) Calcium, Serum 9.9 mg/dL (Normal) Range: 8.6-10.2 [...] function Panel Comments: PATIENT NOT FASTINGPERFORMED BY: [facility]CoBayonne Medical CenterGdymqa3785 [facility] [id number] Information: [id number] (00607) Albumin, Serum 4.1 g/dL (Normal) Range: 3.5-4.8 [...] 101 mg/dL (Abnormal) Range: 65-99 :12 Magnesium (63821) Comments: PATIENT NOT FASTINGPERFORMED BY: LabCoBayonne Medical CenterOygpwu5363 [place] [id number] Magnesium, Serum 1.7 mg/dL (Normal) Range: 1.6-2.6 89-Ucj-149911:08 KNEE 4 OR MORE VIEWS Radiology See [...] Alvares M.D.December 05, 2012 at 11:41:24 AM [id number] Signed GP/GP If you are the referring physician and would like to consult with th eradiologist who provided this interpretation, please contact Maurilio Miller at [phone]. If this radiologist is unavailable, youwill be directed to another radiologist to assist. If you ar e a patient with a question regarding this report, pleasecontactyour referring physician directly. Professional Interpretation Provided By: [employer], Phone , These docum ents contain legally [...] destructionofthese documents. Dictated on 12/05/12 1141 by Anny Alvares MDranscribed on 12/05/12 1458 by ITS IMPORTSign by Archie Alvares MD on 12/05/12 1459 Sign by: Archie Alvares MD 37-Zjh-25421:20 RENAL FUNCTION PANEL Comments: PATIENT NOT FASTINGPERFORMED BY: [facility]Co[facility] CenterCwifhw4716 [facility] [id number] Information: [id number] (52140) Albumin, Serum 4.5 g/dL (Normal) Range: 3.5-4.8 [...] Glucose, Serum 131 mg/dL (Abnormal) Range: 65-99 03-Aet-836276:58 Nuclear Stress Test Radiology Report See Note [...] fraction. Dictated on 11/30/12 1004 by Lonnie NUNEZ,BasilrilTranscribed on 11/30/12 1458 by THIERRY MENSAH,HOLLYSign by Brennan Fleming MD on 12/02/12 1640 Sign by: Brennan Fleming MD 47-Bqy-640472:24 Metabolic Panel, Basic Comments: PATIENT NOT FASTINGPERFORMED BY: [facility]6370 [facility] [id number] Information: [id number] (08828) Calcium, Serum 9.6 mg/dL (Normal) Range: 8.6-10.2 [...] Glucose, Serum 96 mg/dL (Normal) Range: 65-99 53-Nnx-482349:24 MAGNESIUM (59257) Comments: PATIENT NOT FASTINGPERFORMED BY: [facility]Co[facility] CenterJqpkgv5955 [facility] [id number] Magnesium, Serum 2.1 mg/dL (Normal) Range: 1.6-2.6 [...] <0.05 NEGATIVE0.06 - 0.59 AT RISK OF ME> OR = 0.60 SUGGEST ME :23 TSH 1.27 {uIU/mL} (Normal) Range: 0.358-3.74 :58 BILAT SCRN DIGITAL & CAD Radiology Report [...] Alvares M.D.June 08, 2012 at 2:30:29 PM [id number] Signed GP/GP If you are the referring physician and would like to consult with theradiologist who pro vided this interpretation, please contact Maurilio Miller at [phone]. If this radiologist is unavailable, youwill be directed to another radiologist to assist. If you are a patient with a q uestion regarding this report, pleasecontactyour referring physician directly. Professional Interpretation Provided By: [employer], Phone , These documents contain legally protected [...] destructionofthese documents. Dictated on 06/08/12 1358 by Nicki NUNEZ,Leonidesscribed on 06/08/12 1436 by ITS IMPORTSign by Archie Alvares MD on 06/08/12 1437 Sign by: Archie Alvares MD 63-Aql-02146:57 LIPID PANEL (35748) Comments: PATIENT WAS FASTINGPERFORMED BY: [facility] Ohfclo4[address] [place] [id number] Information: [id number] VLDL Cholesterol Kelsi VLDLCH mg/dL (Normal) Range: [...] Cholesterol, Total 227 mg/dL (Abnormal) Range: 100-199 27-Nqe-140127:05 WRIST,MIN 3 VIEWS Radiology Report See Note [...] Signed DS/NATALIE Profession al Interpretation Provided By: [facility], , To consult with a radiologist regarding this report, please call our [id number] line @ [phone] Dictated on 09/29/11 1133 by Franklyn Sykes DOribed on 10/01/11 1001 by ITS IMPORTSign by Moses Sykes DO on 10/01/11 1002 Sign by: Moses Sykes DO :47 MICROALBUMIN: CREATININE RATIO Comments: PATIENT WAS FASTINGPERFORMED BY: [facility] HospitalXbydnv4137 [facility] [id number] (36851) AND (45794) Microalb/Creat Ratio 2.6 {mg/g_creat} (Normal) Range: 0.0-30.0 Microalbumin, Urine 3.0 ug/mL (Normal) Range: 0.0-17.0 Creatinine, Urine 115.1 mg/dL (Normal) Range: 15.0-278.0 85-Tqw-915719:47 METABOLIC PANEL, COMPREHENSIVE Comments: PATIENT WAS FASTINGPERFORMED BY: [employer] LabCoStyloolaItdgdr0697 [facility] [id number] (30266) ALT (SGPT) 46 [iU]/L (Abnormal) Range: 0-40 [...] mg/dL (Abnormal) Range: 65-99 :47 LIPID PANEL (40911) Comments: PATIENT WAS FASTINGPERFORMED BY: [employer]70 [facility] [id number] VLDL Cholesterol Kelsi VLDLCH mg/dL (Normal) Range: [...] Cholesterol, Total 195 mg/dL (Normal) Range: 100-199 :47 CBC WITH MANUAL DIFF Comments: PATIENT WAS FASTINGPERFORMED BY: [employer]6370 [facility] [id number] Information: [id number] (53192) Immature Grans (Abs) 0.0 {x10E3/uL} (Normal) Range: [...] change WBC 5.6 {x10E3/uL} (Normal) Range: 4.0-10.5 94-Rrv-910381:01 BILAT SCRN DIGITAL & CAD Radiology Report [...] radiologist regarding this report, please call our [id number] line @ Dictated on 05/19/11 1229 by Nicki NUNEZ,Annyranscribed on 05/19/11 140 by ITS IMPORTSign by Archie Alvares MD on 05/19/11 140 Sign by: Archie Alvares MD 84-Zlh-570985:11 LIPID PANEL (00263) Comments: now and in six months (approximately); PERFORMED BY: [facility] [id number] HDL Cholesterol 32 mg/dL (Abnormal) Comments: According [...] Comments: in six months (approximately); PERFORMED BY: coJuvo6370 [facility] [id number] (27926) ALT (SGPT) 57 [iU]/L (Abnormal) Range: 0-40 [...] Glucose, Serum 102 mg/dL (Abnormal) Range: 65-99 8-Nvn-405572:51 CHEST, PA AND LATERAL Radiology Report See [...] Archie Alvares MD on 07/21/101935 Sign by: Nicki NUNEZ,Archie 0-Cbd-584755:14 Urinalysis, Office (63064) UA - BILIRUBIN Negative (Normal) UA - [...] Comments: RESULTS CALLED TO GLENDY AT DR TRONCOSO'05/22/10 1312 MAIA KUMAR.REPORT READ BACK BY SAME . NA 137 [...] mg/dL suggests DIABETES MELLITUS per A.D.A. criteria. 9-Hww-464964:48 CULTURE, URINE URINE CULTURE See Note {CFU/mL} [...] <=16 S TRIMETHOPRIM/SULFAMETHOXAZO $ >=320 R EB-VCA [id number] < 0.2 {AI} Range: 0.0-0.8 :48 (Normal) Comments: Negative <0.9 Equivocal 0.9 - 1.0 Positive >1.0Performed at: [facility] Lab[address] [id number] Director: Mara Wilson MD, Phone: [phone] :48 ESR SED RATE 113 mm/h (Abnormal) Range: 0-30 :48 HEP-ABC [id number] HB CORE [id number] SeeNote (Normal) Comments: Result: Negative HEBSAB 6395 [...] CULTURE-SILVESTRE COL Comments: PATIENT NOT FASTINGPERFORMED BY: [facility] Tgbaxj56[address] [place] [id number] Information: SRC:UR [id number] COUNT (24278) Antimicrobial MIHEAD (Normal) Comments: S = Susceptible; [...] 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 Despite apparent in vitro susceptibility topenicillins and cephalospor (Normal) ins, this organism may be clinicallyresistant to therapy with these agents and, per the CLSI (formerlyCOCLS), we have changed their results to indicate this. Urine Final report (Normal) Culture,Comprehensive 6-Zvc-899838:44 Urinalysis, Office (08208) UA - BILIRUBIN Negative (Normal) UA - [...] on 05/22/10 1538 Sign by: JOVANY ARAMBULA 73-Nwt-877024:24 Influenza A, H1N1, RT PCR Comments: PERFORMED BY: [address] [id number] BY: [address] [id number] Information: SRC:NL Subtype Novel H1N1 by Negative (Normal) PCR Type Influenza A by Negative (Normal) PCR Viral FLUABN (Normal) Comments: PERFORMED BY: [address] [id number] BY: [address] [id number] Culture,Rapid,Influenz Comments: Negative:No Influenza A or B detected. a 68-Gtd-914668:25 Influenza A Ag (75879) Influenza A Ag negative (Normal) 80-Xce-037290:55 Urinalysis, Office (20961) UA - BILIRUBIN Negative (Normal) UA - BLOOD Negative (Normal) UA - GLUCOSE Trace (Normal) Comments: 100mg UA - KETONES Negative mg/dL (Normal) UA - LEUKOCYTE ESTERASE Small (Normal) UA - NITRITE Negative (Normal) UA - PH 7.0 (Normal) UA - PROTEIN Negative mg/dL (Normal) UA - SPECIFIC GRAVITY 1.015 (Normal) URINE UROBILINGN SILVESTRE TIMED 2 mg/dL (Normal) 0-Pal-221974:04 CBC with manual diff Comments: PATIENT NOT FASTINGPERFORMED BY: [address] [id number] Information: [id number] (28506) Immature Grans (Abs) 0.0 {x10E3/uL} (Normal) Range: [...] 3.80-5.10 WBC 6.4 {x10E3/uL} (Normal) Range: 4.0-10.5 5-Zrh-151821:04 Metabolic Panel, Comprehensive Comments: PATIENT NOT FASTINGPERFORMED BY: [facility] Qefvcw0027 [facility] [id number] (92534) ALT (SGPT) 78 [iU]/L (Abnormal) Range: 0-40 [...] Glucose, Serum 105 mg/dL (Abnormal) Range: 65-99 43-Lry-846420:07 BRAIN/HEAD WITHOUT CONTRAST Radiology Report See Note [...] air-fluid levels in themaxillary sinuses. Dictated on 03/10/10 1226 by JOVANY ARAMBULATranscribed o n 03/10/10 1226 by Lisa LOVE by JOVANY ARAMBULA on 03/11/10 0859 Sign by: JOVANY ARAMBULA 67-Ifg-43462:00 CHEST, PA AND LATERAL Radiology Report See [...] or atelectasis left lower lobe. Dictated on 03/10/10 1342 by BERTO STYLESTranscribed on 03/10/10 1342 by Lisa LOVE by BERTO STYLES on 03/12/10 0638 Sign by: BERTO STYLES 36-Itt-46024:00 RIBS UNIL 2V NO CXR Radiology Report [...] examination of the unilateral ribs. Dictated on 03/10/10 134 by BERTO STYLESTranscribed on 03/10/10 1342 by SHAR LOVE Sign by BERTO STYLES on 03/12/10 0638 Sign by: BERTO STYLES 0-Ace-185782:04 Lower Respiratory Culture Comments: PERFORMED BY: [facility] Nnvmij3999 [facility] [id number] Information: SRC:SP Result 1 RRF (Normal) Comments: Routine respiratory ermelinda Lower Respiratory Culture Final report (Normal) 88-Jqj-132408:29 ETH TISS P-ETH (Normal) Comments: OPERATIONSeptoplasty, bilateral [...] cartilage and bone with no significant pathologic change.AM:wili 08/18 10/26GROSS DESCRIPTIONA - Received in formalin [...] submitted in one cassette after decalcification. / SJ:wili 09/10/09 TC:3REPORT SIGNED: SCOOTER SNYDER 09/12/0929-Aug-200947-Utz-778131:05 BMP BUN/CRE 20.0 {RATIO} (Normal) Range: 10-20 [...] 126 mg/dLsuggests DIABETES MELLITUS per A.D.A. criteria. 69-Hfp-547576:05 CBC MPV 7.1 fL (Normal) Range: 6.5-12.0 HCT 39.7 % (Normal) Range: 37-47 HGB 14.0 g/dL (Normal) Range: 12.0-16.0 MCH 31.3 pg (Normal) Range: 27.0-32.0 MCHC 35.3 g/dL (Normal) Range: 32-36 MCV 88.6 fL (Normal) Range: 81-99 PLT 232 K/mm3 (Normal) Range: 150-450 RBC 4.48 {M/mm3} (Normal) Range: 4.2-5.4 RDW 13.8 % (Normal) Range: 11.6-14.6 WBC 8.1 K/mm3 (Normal) Range: 4.4-11.0 :33 MICROALBUMIN: CREATININE RATIO Comments: PATIENT WAS FASTINGPERFORMED BY: [facility]CoBay[facility] CenterJiljmx3270 [facility] [id number] (15772) AND (60887) Microalb/Creat Ratio 3.2 {mg/g_creat} (Normal) Range: 0.0-30.0 Creatinine, Urine 37.1 mg/dL (Normal) Range: 15.0-278.0 Microalbumin, Urine 1.2 ug/mL (Normal) Range: 0.0-17.0 6-Gvr-546165:33 METABOLIC PANEL, COMPREHENSIVE Comments: PATIENT WAS FASTINGPERFORMED BY: LabProClarity Corporation6370 [facility] [id number] (48349) ALT (SGPT) 33 [iU]/L (Normal) Range: 0-40 [...] mg/dL (Abnormal) Range: 65-99 :33 LIPID PANEL (42507) Comments: PATIENT WAS FASTINGPERFORMED BY: LabCoStyloolaUtumeh0537 [facility] [id number] LDL Cholesterol Calc 142 mg/dL (Abnormal) Range: 0-99 LDL/HDL Ratio 3.5 {ratio_units} (Abnormal) Range: 0.0-3.2 VLDL Cholesterol Kelsi 57 mg/dL (Abnormal) Range: 5-40 Cholesterol, Total 240 mg/dL (Abnormal) Range: 100-199 HDL Cholesterol 41 mg/dL (Normal) Comments: According to ATP-III Guidelines, HDL-C >59 mg/dL is considered anegative risk factor for CHD. Triglycerides 284 mg/dL (Abnormal) Range: 0-149 4-Fjy-199785:33 CBC WITH MANUAL DIFF Comments: PATIENT WAS FASTINGPERFORMED BY: [facility]CoBay[facility] CenterEunpyw3885 [facility] [id number] Information: [id number] (36874) Baso (Absolute) 0.0 {x10E3/uL} (Normal) Range: 0.0-0.2 [...] Report See Note (Normal) Comments: Exam Number: [id number] CT SCAN OF THE THORAX Multiple axial tomographic images were obtained from the thoracicinlet down to the adrenal glands without intravenous contrastadministration. Selective reso lution images were obtained as well ascoronal and sagittal reconstructions. HISTORYThis is a 68-year-old female patient with history [...] left upper lobe. Reported By: ARCHIE ALVARES 43-Fzu-504593:05 PPD (58205) Comments: Lot #[id number]-left forearmDose0.1 mlgiven by:[facility]; negative :18 TSH (76865) Comments: PATIENT WAS FASTINGPERFORMED BY: [facility]Co[facility] CenterVmiwso3529 [facility] [id number] TSH 1.234 {uIU/mL} (Normal) Range: 0.450-4.500 :18 METABOLIC PANEL, COMPREHENSIVE Comments: PATIENT WAS FASTINGPERFORMED BY: LabMosaic Storage SystemsBayonne Medical CenterQvyhcq4380 [facility] [id number] (84163) A/G Ratio 1.4 (Normal) Range: 1.1-2.5 Albumin, [...] Serum 117 mg/dL (Abnormal) Range: 65-99 If -Bolivian >59 mL/min/1.73 Comments: Note: Persistent reduction for [...] Sodium, Serum 141 mmol/L (Normal) Range: 135-145 39-Wgw-44663:18 LIPID PANEL (39042) Comments: PATIENT WAS FASTINGPERFORMED BY: LabCo Qdrvew6831 [facility] [id number] Cholesterol, Total 206 mg/dL (Abnormal) Range: 100-199 [...] Cholesterol Kelsi 55 mg/dL (Abnormal) Range: 5-40 :18 CBC WITH MANUAL DIFF (25973) Comments: PATIENT WAS FASTINGClinical Information: ADD DRAW FEE [id number] ADD J 20777 PERFORMED BY: ILIR [facility] Xgxvgw5734 [facility] [id number] Baso (Absolute) 0.0 {x10E3/uL} (Normal) Range: 0.0-0.2 [...] 11.7-15.0 WBC 4.1 {x10E3/uL} (Normal) Range: 4.0-10.5 50-Oli-872165:2 ANAEROBIC CULT See Note (Normal) Comments: No anaerobic bacteria isolated. 6 : ANAEROBIC CULT See Note (Normal) Comments: No anaerobic bacteria isolated. 6 : CULTURE, NOSE GRAM STAIN See Note (Normal) Comments: GRAM STAIN RARE RED CELL STROMA RARE WHITE BLOOD CELLS NO ORGANISMS SEEN NASAL CULTURE No growth in 48 hours. (Normal) : CULTURE, WOUND GRAM STAIN See Note (Normal) Comments: GRAM STAIN RARE WHITE BLOOD CELLS 2+ RED BLOOD CELLS RARE GRAM POSITIVE COCCI WOUND CULTURE See Note (Normal) Comments: Penicillin is the drug of choice for Beta Streptococcalinfections. For Penicillin allergic patients, Erythromycinmay be used. AMOUNT GROWTH 3+ ORGANISM 1: GROUP A BETA STREPTOCOCCUS : MRSA DNA BY PCR MRSA RESULT SeeNote (Normal) Comments: Result: Negative :25 COMP METABOLIC Comments: COMMENTS: NEW ADMIT A/G [...] T PROT 7.7 g/dL (Normal) Range: 6.4-8.2 62-Qdc-601951:10 MAMM, BILAT SCRN DIGITAL & CAD Radiology Report See Note (Normal) Comments: Exam Number: [id number] MAMMOGRAPHY, BILATERAL SCREENING DIGITAL AND CAD HISTORYRoutine [...] mammograms werealso examined with computer-aided detection software (Image[employer], [employer] Reported By: JOVANY ARAMBULA M.D. 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 Caddie Letter Indication: Afib Knee pain, right : [...] Indication: Well woman exam Planned Observations Ferritin (41317)Indication: Elevated LFTs On: :05 Request HEPATIC FUNCTION PANEL (84841)Indication: Elevated LFTs On: :04 Request QOHEQ-XYEPCWXWBGF-VVOBG (36805)Indication: Elevated LFTs On: :04 Request METABOLIC PANEL, COMPREHENSIVE (31024)Indication: Hypercholesteremia On: 03-Snz-041263:41 Request LIPOPROTEIN, BLD, BY NMR (16149)Indication: Hypercholesteremia On: 97-Tsv-603532:41 Request Metabolic Panel, Basic (32363)Indication: Abdominal pain On: :25 Request CBC, Platelets & Auto Diff (09210)Indication: Abdominal pain On: :24 Request Sed Rate Erythrocyte (14401)Indication: Abdominal pain On: 52-Osy-723829:16 Request URINE RASHAD CULTURE-IDENTIFICATN (20563)Indication: Dysuria On: :35 Request MICROALBUMIN: CREATININE RATIO (75392) AND (91386)Indication: Hypertensive left ventricular hypertrophy On: : Request URINALYSIS (13674)Indication: Hypertensive left ventricular hypertrophy On: : Request CBC WITH MANUAL DIFF (50275)Indication: Hypertensive left ventricular hypertrophy On: : Request Metabolic Panel, Comprehensive (36799)Indication: Elevated LFTs On: : Request URINE RASHAD CULTURE-IDENTIFICATN (15113)Indication: Urinary tract infection, site not specified On: :09 Request URINALYSIS (44802)Indication: Urinary tract infection, site not specified On: :09 Request URINALYSIS (90297)Indication: Dysuria On: :59 Request Homocysteine, Plasma (22734)Indication: MTHFR mutation On: :24 Request Comments: follow up with in six months (approximately) CBC with auto diff (70281)Indication: Hematoma of hip, right, initial encounter On: :57 Request HEPATIC FUNCTION PANEL (92182)Indication: Hypercholesteremia On: :37 Request Comments: 6 weeks HEPATITIS PANEL (23335)Indication: Elevated LFTs On: 75-Qbe-024018:30 Request URINALYSIS, W/ MICRO (49879)Indication: Hypertensive left ventricular hypertrophy On: :49 Request METABOLIC PANEL, COMPREHENSIVE (43999)Indication: Hypertensive left ventricular hypertrophy On: :49 Request LIPID PANEL (81843)Indication: Hypertensive left ventricular hypertrophy On: :49 Request CBC with auto diff (62342)Indication: Hypertensive left ventricular hypertrophy On: :49 Request HgA1C , Office (91540)Indication: Impaired fasting glucose On: 02-Iom-63304:47 Request Lipid Panel (84295)Indication: Afib On: 85-Rpj-512384:21 Request Comments: copy to Dr. matthews Metabolic Panel, Basic (00069)Indication: Afib On: 53-Rkg-406809:20 Request HEPATIC FUNCTION PANEL (07786)Indication: Elevated LFTs On: 51-Trx-331021:20 Request Lipid Panel (41631)Indication: Hypercholesteremia On: 60-Emu-646268:20 Request METABOLIC PANEL, BASIC (00625)Indication: Hypokalemia On: 17-Feb-20139:10 Request Comments: pls send copy to Dr Young also METABOLIC PANEL, COMPREHENSIVE (07725)Indication: Palpitation On: 8-Wac-808380:10 Request CBC WITH MANUAL DIFF (21772)Indication: Palpitation On: 7-Wrz-067773:10 Request TSH (62416)Indication: Palpitation On: 0-Pxw-028195:10 Request CREATINE KINASE TOTAL (73029)Indication: Abnormal EKG On: 9-Cbd-198025:10 Request CPK MB FRACTION (61580)Indication: Abnormal EKG On: 8-Teh-079410:10 Request Troponin I (86441)Indication: Abnormal EKG On: 9-Jrs-261034:10 Request LIPID PANEL (71825)Indication: Hypertensive left ventricular hypertrophy On: 14-Jqa-663671:43 Request Comments: in in six months (approximately) only. URINALYSIS, W/ MICRO (34460)Indication: Hematuria On: :43 Request CBC (Auto) (55703)Indication: Hypertensive left ventricular hypertrophy On: 89-Wso-850213:38 Request Metabolic Panel, Comprehensive (67839)Indication: Hypertensive left ventricular hypertrophy On: 42-Got-657997:37 Request URINE RASHAD CULTURE-IDENTIFICATN (42857)Indication: NEOP, BNG, RENAL PELVIS On: 56-Fnz-628992:37 Request COMPLEMENT, TOTAL (CH50) (14802)Indication: Rheumatoid arthritis On: 3-Mvf-118872:22 Request COMPLEMENT C4 (90096)Indication: Rheumatoid arthritis On: 5-Auw-733133:22 Request COMPLEMENT C3 (71162)Indication: Rheumatoid arthritis On: :22 Request Potassium Serum (68215)Indication: Hypokalemia On: 4-Nhe-996855:21 Request Comments: re check on Wednesday05-24-10 please call results to Dr. Troncoso RHEUMATOID FACTOR-QUANT (15121) test code 750709Jykgnituus: Rheumatoid arthritis On: :20 Request Comments: add to labs already drawn please Magnesium (92837)Indication: Hypokalemia On: :19 Request HEPATITIS PANEL (58923)Indication: Elevated LFTs On: :10 Request EBV IGM ANTIBODY (71558)Indication: Elevated LFTs On: : Request RASHAD CULTURE-BLOOD (53857)Indication: Urinary tract infection, site not specified On: : Request Amylase (79237)Indication: Abdominal pain, acute, generalized On: : Request Lipase (43385)Indication: Abdominal pain, acute, generalized On: : Request Sed Rate Erythrocyte (60761)Indication: Abdominal pain, acute, generalized On: :03 Request Metabolic Panel, Comprehensive (39991)Indication: Abdominal pain, acute, generalized On: : Request CBC with manual diff (41636)Indication: Abdominal pain, acute, generalized On: :03 Request Influenza A&B Viral Culture (07173)Indication: INFLUENZA W/MANIFESTATION NEC On: 83-Ipg-419999:48 Request Influenza A H1N1 PCR (15828)Indication: INFLUENZA W/MANIFESTATION NEC On: 58-Nfj-136956:48 Request Rapid Flu (51982 x 2)Indication: INFLUENZA W/MANIFESTATION NEC On: 18-Sxl-838444:48 Request METABOLIC PANEL, BASIC (89937)Indication: Hypokalemia On: 42-Dzs-481011:20 Request CULTURE, SPUTUM (28966)Indication: Cough On: 24-Feb-20109:25 Request PPD (67530)Indication: Screening examination for pulmonary tuberculosis On: 44-Pbn-901925:05 Request Comments: Lot #[id number]-left forearmDose0.1 mlgiven by:FLIP Potassium Serum (50612)Indication: Hypokalemia On: 04-Sxo-725621:27 Request Comments: 2weeks Glucose, PP/2 Hour (80871)Indication: Impaired fasting glucose On: 79-Aqj-797701:23 Request Comments: 75 gm Lipid Panel (43745)Indication: Hypercholesteremia On: 98-Smz-579073:23 Request Comments: 4 months RASHAD CULTURE-OTHER (30533)Indication: Cellulitis and abscess of leg, except foot On: 37-Sqo-569768:16 Request Comments: nasal BACT CULTURE ANY-ANAEROBIC (21011)Indication: Cellulitis and abscess of leg, except foot On: :16 Request Comments: nasal BACT CULTURE ANY-ANAEROBIC (31402)Indication: Cellulitis and abscess of leg, except foot On: 72-Kae-552696:15 Request Comments: rt leg RASHAD CULTURE-OTHER (46382)Indication: Cellulitis and abscess of leg, except foot On: 89-Vsr-987765:15 Request Comments: Rt leg OCCULT BLOOD FECES SCREEN (37965)Indication: Well woman exam On: 55-Cvv-974562:50 Request Comments: done in office Thin prep Pap (04602)Indication: Well woman exam On: 36-Xvz-296054:50 Request URINALYSIS W/O MICRO (45206)Indication: Hypertension, benign On: 10-Tus-894294:49 Request CBC (Auto) (01332)Indication: Hypertension, benign On: 25-Blr-284356:49 Request Lipid Panel (60707)Indication: Hypertension, benign On: 32-Otp-610972:49 Request Metabolic Panel, Comprehensive (76436)Indication: Hypertension, benign On: 17-Qtz-248638:49 Request Planned Encounters Medical; [facility] Wellness Exam (DB Nurse) - On: 31-Mar-2018 8:15 [facility] SAMI Orta; [facility] Exam (Doctor) - On: 15-Apr-2018 7:30 [facility] Manjit NUNEZ, Diana Troncoso MD, Diana Nicole Planned Procedures TDAP VACCINE >7 IM (65438)By: On: 31-Aug-2017 Intent Manjit NUNEZ, Diana Troncoso Comments: lot:[id number]:09/16/19rte:IM left deltoid dose:0.5mlgiven by:gosia Gonzáles LPN MD, Dana M DEXA SCAN AXIAL SKELETON On: 31-Aug-2017 Intent (64937)By: Diana Troncoso MD Comments: due 12-04 Diana Troncoso MD Aerosol Treatment (11897)By: On: 28-Apr-2017 Intent Katerine Campo DO Comments: no noise after aeorols inspir or exp Radiology - Chest- PA and On: 28-Apr-2017 Intent LatBy: Katerine Campo DO Spirometry (15937)By: Alber On: 28-Apr-2017 Katerine Villanueva DO Comments: normal SCREENING DIGITAL On: 19-Jan-2017 Intent TOMOSYNTHESIS OF BREAST (26685)By: Diana Troncoso MD, MD, Dana M Holter Monitor 24 hrsBy: On: 10-Nov-2016 Intent Diana Troncsoo MD Comments: copy to [employer] and him to read. Diana NUNEZ Radiology [...] DO Comments: stat call results Aerosol Treatment (76627)By: On: 26-Jun-2016 Intent Marleni Kang DO Comments: with albuterol Holter Monitor 24 hrsBy: On: 21-May-2016 Intent Diana Troncoso MD, MD, Dana M EKG (06217)By: You, On: 21-May-2016 Intent SAMI Comments: see [...] M Flu Vaccine (Quadrivalent) On: 31-Jan-2016 Intent 80489Wf: Diana Troncoso MD Comments: Lot:[id number]:10/16/16Dose:0.5mLRoute:IMSite:L DltdGiven By:CHRISSIE signed Diana Troncoso MD MAMMOGRAM, SCREENING, BOTH On: 20-Jan-2016 Intent BREAST (09859)By: Diana Troncoso MD, MD, Dana M Flu Vaccine (Quadrivalent) On: 05-Feb-2015 Intent 91026Qc: Diana Troncoso MD Comments: Lot:[id number]:10/17/15Dose:0.5mLRoute:IMSite:L DltdGiven By:CHRISSIE signed Diana Troncoso MD IMMUNIZ ADMNIN, 1 VAC, On: 14-Jan-2015 Intent SNGL/COMBO (76027)By: Visit, Nurse ZOSTER VACC, [place] (74409)By: On: 14-Jan-2015 Intent Diana Troncoso MD Comments: lot: [id number]: 09/02site/route: R arm/SQamt:0.5mLVIS signed when applicableONUR Ballard MD, Dana M ADMINISTRATION OF On: 07-Jan-2015 Intent PNEUMOCOCCAL VACCINE (G0009)By: Izabela Rehman BILATERAL MAMMOGRAMS On: 18-Dec-2014 Intent (20617)By: Diana Troncoso MD, MD, Dana M Solu -Medrol Injection, 125 On: 19-Nov-2014 Intent mg (J2930)By: Jacquelyn Garcia CNP Aerosol Treatment (39407)By: On: 19-Nov-2014 Intent Jacquelyn Garcia CNP Wax CurettesBy: Manjit NUNEZ, On: 03-Jul-2014 Intent Diana Pena MD Ear Irrigation ([id number])By: On: 03-Jul-2014 Intent Diana Troncoso MD Comments: IrrigationSite- R earAmount/Color/Quality - medium amount of soft, dark brown cerumen removed Toelrated well: yesCurette ONUR Schofield MD, Dana M Rocephin Injection, 2 Gram On: 03-Jul-2014 Intent (J0696)By: Diana Troncoso MD Comments: IMlot: [id number]: 12/18/16site/route: RGM and LGMamt: 2GVIS signed when applicableONUR Ballard MD, Dana M Solu -Medrol Injection, 125 On: 03-Jul-2014 Intent mg (J2930)By: Manjit NUNEZ, Comments: lot: [id number]: site/route: LGM/IMamt: 2mLVIS signed when applicableONUR Ballard MD, Dana M ELECTROCARDIOGRAM, COMPLETE On: 03-Jul-2014 Intent (ECG) ([id number])By: Diana Troncoso MD, MD, Dana M Radiology - ChestBy: Ciesa On: 02-Jul-2014 Intent GRACE, Kaitlin Aerosol Treatment ([id number])By: On: 29-Jun-2014 Intent Ciparam EDWARDS Kaitlin Solu -Medrol Injection, 125 On: 13-Jun-2014 Intent mg (J2930)By: Ciesa GRACE, Kaitlin Aerosol Treatment (13122)By: On: 13-Jun-2014 Intent Ciesa GRACE, Kaitlin Radiology - ChestBy: Ciesa On: 06-Jun-2014 Intent GRACE, Kaitlin Aerosol Treatment ([id number])By: On: 06-Jun-2014 Intent Nat Boyle LPN Radiology - Knee - RightBy: On: 09-Apr-2014 Intent Katerine Campo DO Rqkubeizo-Bab-Lhajx On: 09-Apr-2014 Intent (56100)By: Katerine Campo DO ADMINISTRATION OF INFLUENZA On: 12-Feb-2014 Intent VIRUS VACCINE (G0008)By: Comments: Lot #[id number]-L dltd, IMDose prefilled syringegiven by:QUINCY MeredithVIS and ABN signed Visit, Nurse FLU VAC, SPLIT, >3 YEARS, On: 12-Feb-2014 Intent INTRAMUSC (28733)By: Visit, Nurse Ultrasound - LiverBy: Radha On: 23-Jan-2014 Intent Jacquelyn EDWARDS Oimudhmve-Bnk-Sepdo On: 25-Sep-2013 Intent (59038)By: Jacquelyn Garcia CNP SPECIMEN HANDLING/TRANSPORT On: 21-Jun-2013 Intent (89878)By: Jacquelyn Garcia CNP Breast Screening - On: 20-Jun-2013 Intent BilateralBy: Manjit NUNEZ, Diana Troncoso MD, Diana Nicole ADMINISTRATION OF INFLUENZA On: 08-May-2013 Intent VIRUS VACCINE (G0008)By: Nellie Hickey FLU VAC, SPLIT, >3 YEARS, On: 08-May-2013 Intent INTRAMUSC (89847)By: Manjit Comments: lot [id number] 2014site/route L kely, IMamt 0.5mlVIS and ABN signed when applicableONUR Ballard MD, Diana Troncoso MD, Diana Nicole Aerosol Treatment ([id number])By: On: 21-Apr-2013 Intent Radha EDWARDS Kaitlin SPECIMEN HANDLING/TRANSPORT On: 16-Jan-2013 Intent ([id number])By: Danisha Dawson LPN Venous Doppler - RightBy: On: 05-Dec-2012 Intent Jacquelyn Garcia CNP Radiology - Knee - RightBy: On: 05-Dec-2012 Intent Radha EDWARDS Kaitlin Holter Moniter ([id number])By: On: 24-Nov-2012 Intent Alber DOKaterine Nuclear Stress Test/Stress On: 24-Nov-2012 Intent SPECT/TreadmillBy: Alber DOKaterine Echo CompleteBy: Alber DO, On: 24-Nov-2012 Intent Katerine EKG (27298)By: Messenger, On: 24-Nov-2012 Intent Shayy MATHEW Comments: nsr mild st depression lateral precordial leads MAMMOGRAM, SCREENING, BOTH On: 17-May-2012 Intent BREASTS (08240)By: Diana Troncoso MD, MD, Diana Nicole FLU VAC, SPLIT, >3 YEARS, On: 29-Mar-2012 Intent INTRAMUSC (02493)By: Ori, Comments: Lot:[id number]:0.5mLRoute:IMSite:L DltdGiven By:CHRISSIE signed Izabela ADMINISTRATION OF INFLUENZA On: 29-Mar-2012 Intent VIRUS VACCINE (G0008)By: Izabela Rehman Radiology - Wrist - LeftBy: On: 29-Sep-2011 Intent Diana Troncoso MD, MD, Diana Nicole Eprescribed prescriptions On: 29-Sep-2011 Intent (G8553)By: Diana Troncoso MD, MD, Dana M Aerosol Treatment (17993)By: On: 12-Jun-2011 Intent CiesJacquelyn valencia CNP IMMUNIZ ADMNIN, 1 VAC, On: 03-Apr-2011 Intent SNGL/COMBO (56992)By: Diana Troncoso MD, MD, Dana M FLU VAC, SPLIT, >3 YEARS, On: 03-Apr-2011 Intent INTRAMUSC (02405)By: Diana Troncoso MD, MD, Dana M MAMMOGRAM, SCREENING, BOTH On: 03-Apr-2011 Intent BREASTS (61973)By: Diana Troncoso MD, MD, Dana M Radiology - ChestBy: Ciesa On: 21-Jul-2010 Intent Jacquelyn EDWARDS Pulse Oximetry (97682)By: On: 21-Jul-2010 Intent Ciesa Jacquelyn EDWARDS Aerosol Treatment (42767)By: On: 21-Jul-2010 Intent Ciesa Jacquelyn EDWARDS CT - Abdomen & PelvisBy: On: 22-May-2010 Intent Diana Troncoso MD Comments: wet read Diana Chandra MD Aerosol Treatment (26785)By: On: 10-Mar-2010 Intent Katerine Campo DO Comments: less noise adn more air exchg after aerosol -- still some wheezing and harsh noise Spirometry (67166)By: Alber On: 10-Mar-2010 Intent Katerine SANCHEZ Comments: mild obstruction - with FEV 1 of 83% Solu- Medrol Injection, 125mg On: 10-Mar-2010 Intent (J2930)By: Alber SANCHEZ, Comments: 2ml given im in lt hip [id number] exp 10-18-[address] - Brain/HeadBy: Alber SANCHEZ, On: 10-Mar-2010 Intent Katerine Pulse Oximetry (01274)By: On: 10-Mar-2010 Intent Katerine Campo DO Kbpobpmtz-Zbo-Aobwt On: 10-Mar-2010 Intent (31370)By: Katerine Campo DO Radiology - ChestBy: Alber On: 10-Mar-2010 Intent Katerine SANCHEZ Solu -Medrol Injection, 125 On: 07-Mar-2010 Intent mg (J2930)By: Radha EDWARDS, Comments: Lot #[id number]-L hip AFAglv0kuvavdg by:SHIRA Bean Aerosol Treatment (36523)By: On: 07-Mar-2010 Intent Jacquelyn Garcia CNP Pulse Oximetry (10805)By: On: 24-Feb-2010 Intent Jacquelyn Garcia CNP Inhaler Demonstration On: 24-Feb-2010 Intent (07158)By: Jacquelyn Garcia CNP Aerosol Treatment (60263)By: On: 24-Feb-2010 Intent Jacquelyn Garcia CNP ADMINISTRATION OF INFLUENZA On: 03-Feb-2010 Intent VIRUS VACCINE (G0008)By: Kanu Comments: Lot #[id number] 4PExp- 4/11Site- L Dltd/IMDose 0.5mlgiven by: QUINCY SILVA LPN, Megan L FLU VAC, SPLIT, >3 YEARS, On: 03-Feb-2010 Intent INTRAMUSC (23737)By: Kanu MATHEW, Eduardo L FLU VAC, SPLIT, >3 YEARS, On: 31-Jan-2010 Intent INTRAMUSC (24377)By: Augusto CLEMENTS, Comments: injection given in left deltoid,see scanned document/ Danita IMMUNIZ ADMNIN, 1 VAC, On: 31-Jan-2010 Intent SNGL/COMBO (55175)By: Danita Casas RN MAMMOGRAM, SCREENING, BOTH On: 25-Jul-2009 Intent BREASTS (65702)By: Manjit NUNEZ, Diana Pena MD Pulse Oximetry (49574)By: On: 28-Mar-2009 Intent You SAMI Flu Vaccine, Split IM On: 11-Jan-2009 Intent (36220)By: Rani MATHEW, Comments: Lot #[id number] 4PExp-08/2009Site-Left deltoidgiven by:FLIP Kruger CurettesBy: Ciesa NET WASHER, On: 02-Jul-2008 Intent Kaitlin Ear Irrigation (14947)By: On: 02-Jul-2008 Intent Ciesa NET WASHER, Kaitlin Aerosol Treatment (58110)By: On: 02-Jul-2008 Intent Ciesa NET WASHER, Kaitlin Bio Z (65980)By: Manjit NUNEZ, On: 04-May-2008 Intent Diana Pena MD EKG (78456)By: Manjit NUNEZ, On: 04-May-2008 Intent Diana Pena MD Holter Moniter (98607)By: On: 04-May-2008 Intent Manjit NUNEZ, Diana Pena MD Nuclear Stress Test/Stress On: 04-May-2008 Intent SPECT/AdenosineBy: Manjit NUNEZ, Diana Pena MD Echo CompleteBy: Manjit NUNEZ, On: 04-May-2008 Intent Diana Pena MD Cartoid DopplerBy: Manjit On: 04-May-2008 Intent Diana NUNEZ MD, Dana M FLU VAC, SPLIT, >3 YEARS, On: 20-Mar-2008 Intent INTRAMUSC (62586)By: Yared, Comments: Lot #[id number]/30/08Site-right deltoidDose0.5mlgiven by Caro Armenta IMMUNIZ ADMNIN, 1 VAC, On: 20-Mar-2008 Intent SNGL/COMBO (00594)By: Kathi Vail Radiology - ChestBy: Manjit On: 28-Feb-2008 Intent Diana NUNEZ MD, Dana M Comments: not better end of week INFUSION, NORMAL SALINE On: 06-Jul-2007 Intent SOLUTION , 250 CC (J7050)By: Jacquleyn Garcia CNP THER/PROPH/DIAG IV INF, INIT On: 06-Jul-2007 Intent (52563)By: Jacquelyn Garcia CNP Rocephin Injection, 2 Gram On: 06-Jul-2007 Intent (J0696)By: Jacquelyn Garcia CNP Comments: 2gms infused left hand without problem HYDRATION IV INFUSION, INIT On: 05-Jul-2007 Intent (87467)By: Jacquelyn Garcia CNP Comments: #22 gauge started to left forearm area without difficulty per gosia Vancoymcin 500mg/premixedBy: On: 05-Jul-2007 Intent Jacquelyn Garcia CNP Comments: x2Lot #:[id number] date:09-17-08 Amount given:1 gram Route: IVSite given:left forearm area Given by: gosia pigment grinder IMMUNIZ ADMNIN, 1 VAC, On: 08-Feb-2007 Intent SNGL/COMBO (24992)By: Marleni Kang DO FLU VAC, SPLIT, >3 YEARS, On: 08-Feb-2007 Intent INTRAMUSC (85212)By: Jorge Luis SANCHEZ, Comments: given in left deltoid, 0.5cc, lot#[id number], exp.10.16.08 WF Marleni A THER/PROPH/DIAG IV INF, INIT On: 24-Jan-2007 Intent (89085)By: Marleni Kang DO Comments: #22 gauge initiated right forearm without difficulty per gosia INFUSION, NORMAL SALINE On: 24-Jan-2007 Intent SOLUTION , 250 CC (J7050)By: Marleni Kang DO Rocephin Injection, 2 Gram On: 24-Jan-2007 Intent (J0696)By: Marleni Kang DO Comments: Lot #:[id number] date:06-25Amount given:2 grams Route: IVSite given:right forearm Given by: gosia MAMMOGRAM, SCREENING, BOTH On: 26-Aug-2006 Intent BREASTS (26660)By: Manjit Comments: 10-12-06 , Diana Troncoso MD, Diana Nicole ELECTROCARDIOGRAM, COMPLETE On: 26-Aug-2006 Intent (ECG) (44291)By: Manjit NUNEZ, Diana Troncoso MD, Diana Nicole Planned Medications INJECTION, CEFTRIAXONE SODIUM, PER 250 MG Ordered: 03-Jul-2014 Pending Diana Troncoso MD, MD, Diana Nicole INJECTION, METHYLPREDNISOLONE SODIUM SUCCINATE, UP TO 125 MG Ordered: 07-Mar-2010 Pending Ciesa NET WASHER, Kaitlin INJECTION, METHYLPREDNISOLONE SODIUM SUCCINATE, UP TO 125 MG Ordered: 10-Mar-2010 Pending Katerine Campo DO INJECTION, METHYLPREDNISOLONE SODIUM SUCCINATE, UP TO 125 MG Ordered: 13-Jun-2014 Pending Ciesa NET WASHER, Kaitlin INJECTION, METHYLPREDNISOLONE SODIUM SUCCINATE, UP TO 125 MG Ordered: 03-Jul-2014 Pending Diana Troncoso MD, MD, Diana Nicole INJECTION, METHYLPREDNISOLONE SODIUM SUCCINATE, UP TO 125 MG Ordered: 19-Nov-2014 Pending Ciesa NET WASHER, Kaitlin INJECTION, TRIAMCINOLONE ACETONIDE, NOT OTHERWISE SPECIFIED, 10 [...] Instructions Indication: Palpitation Encounters Phone Encounter On: 22-Feb-2018 16:29 Encounter Diagnosis: Hammer toe End: 22-Feb-2018 16:34 [facility] Phone Encounter On: 14-Feb-2018 8:57 Encounter Diagnosis: [...] completed the followi ng preventative measures: mammography (2017) and colonoscopy ([id number] The patient does have durable power of collections attorney and living will. The patient has noticed nothing from the geriatic depress ion scale. Other providers contributing to the patient's care are campaign developer, tipple greaser and other: ([facility]Encounter Diagnosis: BMI 29.0- 29.9,adult, History of [...] for Tdap vaccination (Renamed from Need for jqvsubhlpo-nrfuttl-whedwmhpv (Tdap) vaccine, adult/adolescent) [facility] [...] Nutrition: balanced diet and supplemental vitamins. The me dical issues the patient is following up [...] The patient does have durable power of collections attorney and living will. The patient has noti silvano nothing from the geriatic depression scale. Other providers contributing to the patient's care are campaign developer (Dr Young), automatic tire tester (Arin - when had pneumonia but not currently in need of his care at this time), tipple greaser (dr Garland), surgeon ([facility] - L shoulder) and other: (dentist - Dr Chiu - [facility] - goes every 3 years. Last [...] or bracelet or put area rugs thro ugh house. The patient has completed the following preventative measures: PAP smear (many years ago will have today ), mammography () and colonoscopy (2005). The patient does have durable power of collections attorney and living will. The patient has noticed nothing from the geriatic depression scale. Other providers contributing to the patient's care are campaign developer (Dr. Young ), gastrologist (Dr. Cande novak ), tipple greaser (Dr. Garcia ) and other: (Dr. Reza [...] - Reason for ER visit: note: (afib 12-27 to 12-30). The patient feels well with minor complaints, [...] oral corticosteroids (celebrex).Encounter Diagnosis: Knee pain, right (289.46) [facility] Phone Encounter On: 25-Nov-2012 [...] visit: still red and tender to touch, Ariel took out cyst and dr sifuentesned it.- [...] reports that she does not perform odalys hly breast self exam. Calcium intake includes 1200 [...] 12-Aug-2006 15:31 Payers [employer]/MedicareTRANS RXNANCY JORGE; willian guarantor
--- OUTSIDE RECORDS SUMMARY | 2018-07-07 08:31 | XMS RPT_ITS ---
:1940 Author Organization [employer] Address [address] [place] [id number] Phone Care Team Providers Name Role Phone Bob Padron MD Reason for Visit Reason For Visit Description Start Date Postop - subsequent visit Preliminary reason for visit data, not yet signed by the author as of left foot post hammertoe deformities with dislocated metatarsophalangeal jointssecond third fourth and fifth toes on 02/16/2018 Preliminary reason for visit data, not yet signed by the author as of Chief Complaint Chief Complaint Description Start Date left foot post hammertoe deformities with dislocated metatarsophalangeal jointssecond third fourth and fifth toes on 02/16/2018 Preliminary chief complaint data, not yet signed by the author as of Instructions Instruction Description Start Date Patient advised to follow-up with Primary Care Physician for BMI management. Plan of Care Type Date Detail Appointment 11:45 AM Bob Padron MD, [address], [address], Patient education \cps-sql1\CPS_PtEducation\CD C_FALL_PREVENTION.pdf, \cps-sql1\CPS_PtEducation\CD C_FALL_PREVENTION.pdf, \cps-sql1\CPS_PtEducation\CD C_FALL_PREVENTION.pdf, \cps-sql1\CPS_PtEducation\ht n.pdf Medications Medication Instructions Start Stop Generic Name NDC Provider Date Date DUEXIS 800-26.6 MG take one IBUPROFEN-FAMOTIDINE [id number] Richard TABS tablet two 04/23 Sabetta times per day PAC after meals LOSARTAN take 1 pill LOSARTAN 53941906067 Richard POTASSIUM-HCTZ once daily 12/28 POTASSIUM-HCTZ Sabetta 100-12.5 MG TABS PAC FISH OIL CAPS take 2 pills OMEGA-3 FATTY ACIDS 86561722207 Richard once daily 12/28 CAPS Sabetta PAC METOPROLOL TARTRATE take 1/2 METOPROLOL TARTRATE 49901871668 Richard 25 MG TABS tablet once 12/28 Sabetta daily PAC HYDROCHLOROTHIAZIDE take 1 tablet HYDROCHLOROTHIAZIDE 89329664731 Richard 12.5 MG TABS once daily 12/28 Sabetta PAC MAGNESIUM-OXIDE TABS take 1 pill MAGNESIUM OXIDE TABS 75884602181 Richard twice daily 12/28 Sabetta PAC POTASSIUM TABS take 1 pill POTASSIUM TABS 29830052724 Richard twice daily 12/28 Sabetta PAC MINOCYCLINE HCL 100 take 1 pill MINOCYCLINE HCL 31619314790 Richard MG CAPS once daily 12/28 Sabetta PAC FLECAINIDE ACETATE take 1 pill FLECAINIDE ACETATE 28167655974 Richard 100 MG TABS twice daily 12/28 Sabetta PAC VITAMIN D3 CAPS take 1 pill CHOLECALCIFEROL CAPS 19464341683 Richard once daily 12/28 Sabetta PAC Conditions or Problems Problem Name Problem Onset Status Entry Provider Comment Standard Annotate Code Date Date Description 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 Bob Castillo H/O: surgery rheumatoid left foot (SNOMED 05/08 05/[address]) MD jarett bai Risk for 752406539 Active Jamaal Palacios At risk for falls (SNOMED 01/13 01/[address]) Osteoporosis 87316488 Active Jamaal Palacios Osteoporosis (SNOMED 01/13 01/[address]) Arthritis of 584994916 Active Jamaal Palacios Arthritis of left knee (SNOMED 01/13 01/[address]) Dislocation 520429804 Active Richard Dislocation 2nd and 3rd of toe of (SNOMED 12/28 12/29 [place] of joint toes right foot CT) PAC Dislocation 428105515 Active Richard Dislocation 2nd and 3rd of toe of (SNOMED 12/28 12/29 Sabetta of joint toes left foot CT) PAC Hallux valgus 409703714 Active Richard Hallux valgus (acquired), (SNOMED 12/28 12/[address]) PAC Hallux valgus 142520931 Active Richard Hallux valgus (acquired), (SNOMED 12/28 12/[address]) PAC Hallux 158662486 Active Richard Toe joint rigidus, left (SNOMED 12/28 12/[address]) PAC Hallux 111467720 Active Richard Toe joint rigidus, (SNOMED 12/28 12/29 [place] rigid right foot CT) PAC RA 57930376 Active Richard [facility]29 [facility] arthritis) CT) PAC Allergies, Adverse Reactions, Alerts Allergy Name Reaction Start Date Severity Status Provider Description NOV Critical Active Richard Briones PAC ROBAXIN Critical Active Richard Briones PAC LOCAL ANESTHETIC Critical Active Richard Briones PAC Social History No information available. Vital Signs Date Name Value Unit Description BMI (Body Mass 29.00 kg/m2 Body Mass Index Index) [Ratio] Preliminary vital sign data, not yet signed by the author as of BP Diastolic 80 mm[Hg] blood pressure, diastolic Preliminary vital sign data, not yet signed by the author as of BP Diastolic 91 mm[Hg] blood pressure, diastolic, second observation Preliminary vital sign data, not yet signed by the author as of BP Systolic 163 mm[Hg] blood pressure, systolic Preliminary vital sign data, not yet signed by the author as of BP Systolic 163 mm[Hg] blood pressure, systolic, second observation Preliminary vital sign data, not yet signed by the author as of Heart Rate 83 /min pulse rate E&M Preliminary vital sign [...] Office Visit: Postop - subsequent visit, Rm: 15 MEDS REVIEW Done Documentation of current medications (procedure) Preliminary observation data, not yet signed by the author as of Preliminary observation data, not yet signed by the author as of Clinical Summary: HMSPatientID OOP account number Procedures Code Procedure Name Date Entry Date G8730 Pain assessment documented as positive - follow-up documented G8427 Current medications documented 1036F Tobacco screening was negative - non user G8417 BMI documented as above normal parameters - follow-up documented G8952 Blood pressure outside of normal parameters - follow-up not documented 1170F Functional status assessed - RA 1100F Fallen more than twice or injured themselves from a fall documented 3288F Falls risk assessment documented 0518F Falls plan of care documented [id number] Patient Encounter Medications Administered No information available. [...]
--- OUTSIDE RECORDS SUMMARY | 2018-07-07 08:31 | XMS RPT_ITS ---
:1940 Author Organization [employer] Address [address] [place], [place] [address], [place] [address] Phone Care Team Providers Name Role Phone [...] Appointment 11:45 AM Bob Padron MD, [address] [facility], [address], [place], [address], Appointment 11:15 AM Bob Padron MD, [address] [facility], [address], [place], [address], Pending order XR FOOT 3+ VWS-LT Medications Medication Instructions Start Stop Generic Name [facility] Provider Date Date DUEXIS 800-26.6 MG take one IBUPROFEN-FAMOTIDINE 94793510183 Richard TABS tablet two 04/23 Sabetta times per day PAC after meals LOSARTAN take 1 pill LOSARTAN 80834629414 Richard POTASSIUM-HCTZ once daily 12/28 POTASSIUM-HCTZ Sabetta 100-12.5 MG TABS PAC FISH OIL CAPS take 2 pills OMEGA-3 FATTY ACIDS 97137664126 Richard once daily 12/28 CAPS Sabetta PAC METOPROLOL TARTRATE take 1/2 METOPROLOL TARTRATE 66016421807 Richard 25 MG TABS tablet once 12/28 Sabetta daily PAC HYDROCHLOROTHIAZIDE take 1 tablet HYDROCHLOROTHIAZIDE 37851606655 Richard 12.5 MG TABS once daily 12/28 Sabetta PAC MAGNESIUM-OXIDE TABS take 1 pill MAGNESIUM OXIDE TABS 72903563280 Richard twice daily 12/28 Sabetta PAC POTASSIUM TABS take 1 pill POTASSIUM TABS 62837889769 Richard twice daily 12/28 Sabetta PAC MINOCYCLINE HCL 100 take 1 pill MINOCYCLINE HCL 20889586146 Richard MG CAPS once daily 12/28 Sabetta PAC FLECAINIDE ACETATE take 1 pill FLECAINIDE ACETATE 16986085676 Richard 100 MG TABS twice daily 12/28 Sabetta PAC VITAMIN D3 CAPS take 1 pill CHOLECALCIFEROL CAPS 47969113436 Richard once daily 12/28 Sabetta PAC Conditions or Problems Problem Name Problem Onset Status Entry Provider Comment Standard Annotate Code Date Date Description Status post 269302584 Active Bob Castillo H/O: surgery rheumatoid left foot (SNOMED 05/08 05/[address]) MD denson n Risk for 490610161 Active Jamaal Palacios At risk for falls (SNOMED 01/13 01/[address]) Osteoporosis 37514497 Active Jamaal Palacios Osteoporosis (SNOMED 01/13 01/[address]) Arthritis of 658879986 Active Jamaal Palacios Arthritis of left knee (SNOMED 01/13 01/[address]) Dislocation 271225117 Active Richard Dislocation 2nd and 3rd of toe of (SNOMED 12/28 12/29 [place] of joint toes right foot CT) PAC Dislocation 259425532 Active Richard Dislocation 2nd and 3rd of toe of (SNOMED 12/28 12/29 [place] of joint toes left foot CT) PAC Hallux valgus 753859063 Active Richard Hallux valgus (acquired), (SNOMED 12/28 12/[address]) PAC Hallux valgus 526838620 Active Richard Hallux valgus (acquired), (SNOMED 12/28 12/[address]) PAC Hallux 555105274 Active Richard Toe joint rigidus, left (SNOMED 12/28 12/[address]) PAC Hallux 155597150 Active Richard Toe joint rigidus, (SNOMED 12/28 12/29 [place] rigid right foot CT) PAC RA 46861013 Active Richard Rheumatoid (rheumatoid (SNOMED 12/28 12/29 [place] arthritis arthritis) CT) PAC Allergies, Adverse Reactions, [...] by the author as of BP Diastolic 78 mm[Hg] blood pressure, diastolic Preliminary vital sign data, not yet signed by the author as of BP Systolic 130 mm[Hg] blood pressure, systolic Preliminary vital sign data, not yet signed by the author as of Heart Rate 91 /min pulse rate E&M Preliminary vital sign [...] Office Visit: Postop - subsequent visit, Rm: 9 MEDS REVIEW Done Documentation of current medications (procedure) Preliminary observation data, not yet signed by the author as of Preliminary observation data, not yet signed by the author as of Clinical Summary: HMSPatientID OOP account number Procedures Code Procedure Name Date Entry Date G8731 Pain assessment documented as negative - follow-up not required G8427 Current medications documented 1036F Tobacco screening was negative - non user G8417 BMI documented as above normal parameters - follow-up documented G8783 Blood pressure within normal parameters - no follow-up required 1170F Functional status assessed - [facility]-[id number] Patient Encounter Medications Administered No information available. [...]
--- OUTSIDE RECORDS SUMMARY | 2018-07-07 08:31 | XMS RPT_ITS ---
:1940 Author Organization [facility] Address [address] [place] [id number] Phone Care Team Providers Name Role Phone Marilee Negrete Reason for Visit Reason For Visit Description Start Date New/Est - 1st visit with physician Preliminary reason for visit data, not yet signed by the author as of left foot pain Preliminary reason for visit data, not yet signed by the author as of Chief Complaint Chief Complaint Description Start Date left foot pain Preliminary chief complaint data, not yet signed by the author as of Instructions Instruction Description Start Date Please follow-up with Primary Care Physician or County Nurse for treatment or adjustment of medication regarding elevated blood pressure.Patient advised to follow-up with Primary Care Physician for BMI management. Plan of Care Type Date Detail Appointment 03:15 PM Marilee VENTURA, [address] [facility], [address], [place], [address], Appointment 10:45 AM Bob Padron MD, [address] [place] [address], [email or web address], [place], [address], Appointment 11:15 AM Bob Padron MD, [address] [place] [address], [email or web address], [place], [address], Patient education \[email or web address] .pdf Medications Medication Instructions Start Stop Generic Name NDC Provider Date Date CEFADROXIL 500 MG Take 1 CEFADROXIL [id number] Marilee CAPS capsule by 06/02 [place] mouth 2 times PAC a day for 5 days DUEXIS 800-26.6 MG take one IBUPROFEN-FAMOTIDIN [id number] Richard TABS tablet two 04/23 E [place] times per day PAC after meals LOSARTAN take 1 pill LOSARTAN [id number] Richard POTASSIUM-HCTZ once daily 12/28 POTASSIUM-HCTZ [place] 100-12.5 MG TABS PAC FISH OIL CAPS take 2 pills OMEGA-3 FATTY ACIDS 75246131409 Richard once daily 12/28 CAPS [place] PAC METOPROLOL TARTRATE take 1/ METOPROLOL TARTRATE 87489616937 Richard 25 MG TABS tablet once 12/28 [place] daily PAC HYDROCHLOROTHIAZIDE take 1 tablet HYDROCHLOROTHIAZIDE 47271418751 Richard 12.5 MG TABS once daily 12/28 [place] PAC MAGNESIUM-OXIDE TABS take 1 pill MAGNESIUM OXIDE 73361656074 Richard twice daily 12/28 TABS [place] PAC POTASSIUM TABS take 1 pill POTASSIUM TABS 87718197058 Richard twice daily 12/28 [place] PAC MINOCYCLINE HCL 100 take 1 pill MINOCYCLINE HCL 36771826509 Richard MG CAPS once daily 12/28 [place] PAC FLECAINIDE ACETATE take 1 pill FLECAINIDE ACETATE 84562555599 Richard 100 MG TABS twice daily 12/28 [place] PAC VITAMIN D3 CAPS take 1 pill CHOLECALCIFEROL 85020452243 Richard once daily 12/28 CAPS [place] PAC Conditions or Problems Problem Name Problem Onset Status Entry Provider Comment Standard Annotate Code Date Date Description Status post [id number] Active Bob Castillo H/O: surgery rheumatoid left foot (SNOMED 05/08 05/[address]) MD denson n Risk for 756764753 Active Jamaal Palacios At risk for falls (SNOMED 01/13 01/[address]) Osteoporosis 08462849 Active Jamaal Palacios Osteoporosis (SNOMED 01/13 01/[address]) Arthritis of 883496426 Active Jamaal Palacios Arthritis of left knee (SNOMED 01/13 01/[address]) Dislocation 293541246 Active Richard Dislocation 2nd and 3rd of toe of (SNOMED 12/28 12/29 [place] of joint toes right foot CT) PAC Dislocation 541728251 Active Richard [facility] 3rd [facility] [place] of joint toes left foot CT) PAC Hallux valgus 104875323 Active Richard Hallux valgus (acquired), (SNOMED 12/28 12/[address] [place]) PAC Hallux valgus 125841012 Active Richard Hallux valgus (acquired), (SNOMED 12/28 12/[address] [place] [address]) PAC Hallux 940788926 Active Richard [facility] 12[facility]29 [facility] rigid foot CT) PAC Hallux 199825233 Active Richard [facility], [facility]/28 12/29 [place] rigid right foot [address]) PAC RA 71280705 Active Richard Rheumatoid (rheumatoid ([facility] 12/28 12/29 [facility] arthritis arthritis) CT) PAC Allergies, Adverse [...] yet signed by the author as of Body Temperature 98 [degF] temperature E&M Preliminary vital sign data, not yet signed by the author as of Body Temperature 36.7 Anastasiia temperature in centigrade E&M Preliminary vital sign data, not yet signed by the author as of BP Diastolic 82 mm[Hg] blood pressure, diastolic Preliminary vital sign data, not yet signed by the author as of BP Diastolic 74 mm[Hg] blood pressure, diastolic, second observation Preliminary vital sign data, not yet signed by the author as of BP Systolic 163 mm[Hg] blood pressure, systolic Preliminary vital sign data, not yet signed by the author as of BP Systolic 125 mm[Hg] blood pressure, systolic, second observation Preliminary vital sign data, not yet signed by the author as of Heart Rate 64 /min pulse rate E&M Preliminary vital sign [...] Value Unit Range Flag Description Office Visit: New/Est - 1st visit with physician, Rm: 3 MEDS REVIEW Done Documentation of current medications (procedure) Preliminary observation data, not yet signed by the author as of XRAY HX of the left foot on xray history 03/24/[address] [facility] Preliminary observation data, not yet signed by the author as of Preliminary observation data, not yet signed by the author as of Clinical Summary: HMSPatientID O account number Procedures Code Procedure Name Date Entry Date G8730 Pain assessment documented as positive - follow-up documented G8427 Current medications documented 1036F Tobacco screening was negative - non user G8417 BMI documented as above normal parameters - follow-up documented 1170F Functional status assessed - RA [id number] Patient Encounter Medications Administered No information available. [...]
--- OUTSIDE RECORDS SUMMARY | 2018-07-07 08:32 | XMS RPT_ITS | Continuity of Care Document ---
:1940 Author Organization [facility] Address [address] [facility] [address] [place] [address] Phone Care Team Providers Name Role Phone Petey NUNEZ, Diana Nicole Unavailable Gunner Sarah Unavailable [...] days Quantity: 60 {Tablet} Refills: 0 Ordered:22-Feb-2018 Petey NUNEZ, Diana Burris MD, Diana Nicole Start [...] MD, Dana M Start : 29-Jun-2017 Active W-Kjaotnuvmpza-Qgglk 7.5-90.314 MG Oral Capsule 1 (one) Capsule [...] days Quantity: 14 {Tablet} Refills: 0 Ordered:28-Mar-2009 Petey NUNEZ, Diana Gonsalves MD Start : 28-Mar-2009 [...] End : 29-Jun-2017 Inactive Comments:called to [facility] in [place], [phone] Medrol 4 MG Oral Tablet Therapy Pack [...] End : 10-Mar-2010 Discontinued CALCIUM + D, [id number] (Oral Tablet) 2 qd for 0 days [...] days Quantity: 60 {Packet} Refills: 4 Ordered:09-May-2015 Petey NUNEZ, Diana Burris MD, Diana Nicole Start [...] days Quantity: 30 {Capsule} Refills: 0 Ordered:18-Nov-2017 Petey NUNEZ, Diana Burris MD, Diana Nicole Start [...] Arthritis (M19.90, 716.90) Comments: Dr. Garcia in [place] stable off meds now doign well last [...] directly onto right side, onto deck [facility] has swelling and ecchymosis Status: Resolved as [...] for Tdap vaccination (Renamed from Need for dghokzadmj-cyqmqbk-wusjooxhq (Tdap) vaccine, adult/adolescent) (Z23, V06.1) Status: Resolved [...] VAC ADLT/IMUMNOSPR, Date: 07-Jan-2015 Completed 07-Jan-2015 SBC/INTRM (04033) Comments: Lot:[id number]:05/01/16Dose:0.5mgRoute:imSite:l armGiven By:FRANCA given on 01/03/15VIS signed Colonoscopy Completed Comments: 2005 colonoscopy Completed Comments: Dr Bailey - around age 56 or 66 D&C to get Completed Comments: x3 HAMMERTOE REPAIR (48497) Completed Comments: deformities with dislocated metatarsophalangeal joints 2nd, 3rd, 4th and 5th toes 02-16-18 PACEMAKER IMPLANTATION (02184) Completed Comments: dual chamber 06-29-17 [facility] Dr. Fleming ROTATOR CUFF REPAIR Completed Comments: Left, July 31 2005, Dr Josue Tonsillectomy Completed Tubal Ligation Completed Date Value Details 18-Jan-2018 Cardiology Visit Report Result: Comments: See Note; NOTES: [facility] 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%, AP=96.2%, and battery life estimated to be [...] CT w/CCTA Result: Comments: See Note; NOTES: [facility] Imaging Services [address] [place] [address] w/CCTA MR#: [id number] Acct: [id number] Name: MALI WALDEN Rep #: [id number] : 1940 F 77 From: Archie Alvares MD PCP: Diana Troncoso MD Status: [facility] Study: Limited Chest CT w/CCTA Date of Exam: 12/16/17 Exam# [id number] Ordering Dr: Diana Troncoso MD STUDY: CT [...] Archie Alvares MD at 9:03 EDT Tel [phone], Service support , CC: Diana Troncoso MD Radio Personality: Signed 02-Dec-2017 Pacemaker Check Result: Comments: See Note; NOTES: [facility] [address] [place] [address]. [address] [place] [address] Pacemaker Check Date of Service: 12/01/172006 MR#: [id number] Acct: [id number] Name: EDDIE WALDEN BAMPiyush E Rep #: [id number] : 1940 From: Nishi Johnson Age/Sex: 77/F Location: [facility] [place] Status: Signed 12/01/172008 <Electronically signed by Nishi Johnson > Date Nishi Johnson 12/02/17 0855<Electronically signed by Manoj Young MD> Cosigner Signature: Date (if applicable) Manoj Young MD CC: 04-Sep-2017 Cardiology Visit Report Result: Comments: See Note; NOTES: [facility] 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 6 wk post implant [...] rhythm shows AAI pacing @ 71 ppm. MIDDLE SCHOOL FOOTBALL COACH=0.1%. Estimated battery life 9 yrs. Device and lead measurements stable. Decreased A/V amplitudes with adequate safety margin to preserve battery longevity. Counters cleared. Next remote f/u appt scheduled for in 3 mos. Device Device Date Interviewed: 08/20/17 Follow-up Location: in office Interview Reason: scheduled follow up Manufact urer: Medtronic Name: Fazal GALLOWAY Model: A2DR01 Serial #: [id number] Implant Date: 06/28/17 Year(s): 0 Implant Physician: Dr. Brennan Fleming/[facility] Patient Characteristics Atrial Indication: sick sinus synd gino, Paroxysmal atrial fibrillation Patient Substrate: Arrhythmia Underlying rhythm: Sinus bradycardia Pacemaker Dependent: No Device Characteristics Device: Dual Chamber Type: Pacemaker Remote Follow- Up: ImmuRx Device Physical Exam Yes Incision well healed Leads Lead #1 Administrative Operations Coordinator Lead 1: Medtronic Model Lead 1: 5076/45 Serial# Lead 1: [id number] Date Implanted Lead 1: 06/28/17 Position Lead 1 : RA Lead #2 Administrative Operations Coordinator Lead 2: [place] [employer] Model Lead 2: 5076/52 Serial# Lead 2: [id number] Date Implanted Lead 2: 06/28/17 Position Lead [...] Discharge Instruction Result: Comments: See Note; NOTES: [facility] Medical Records Department [address] [place] [address] Instructions for Home/Discharge Instructions 06/29/17 1042 MR#: [id number] Acct: [id number] Name: MALI WALDEN Rep #: [id number] : 1940 76 From: Brennan Fleming MD PCP: Diana Troncoso MD Status: REG [facility] Discharge Diet: No Restrictions Discharge [...] call your doctor's office or Doctor's Registry ([phone]) Call 911 or go to the nearest [...] mg tablet 12.5 mg PO DAILY 06/08/17 Kings[place]-3 Fatty Acids/Fish Oil [Fish Oi l 1,000 mg Capsule] 1 each PO DAILY 06/28/17 Primary Care Physician: Diana Troncoso MD [Primary Care Provider] - When: pacer nurse 06/29/17 1050 <Electronically signed by Brennan Fleming MD&am p;#62; Date Brennan Fleming MD CC: Diana Troncoso MD 29-Jun-2017 Chest 1 View Result: Comments: See Note; NOTES: [facility] Imaging Services [address] [place] [address] Chest 1 View MR#: [id number] Acct: [id number] Name: MALI WALDEN Rep #: [id number] : F 76 From: [facility] PCP: Diana Troncoso MD Status: [facility] Study: Chest 1 View Date of Exam: 06/29/17 Exam# [id number] Ordering Dr: Brennan Fleming MD STUDY: X-RAY CHEST REASON FOR EXAM: Female, 76 years old. Pacemaker insertion TECHNIQUE: Single frontal view COMPARISON: 06/29/2017 FINDINGS: Pacemaker leads are in proper position. The lungs are darlyn ar and expanded. There is no demonstrated pleural abnormality. Normal size heart. Normal mediastinum and lgenys. Normal visualized pulmonary arteries. Normal visualized aortic [...] CC: Brennan Fleming MD; Diana Troncoso MD Radio Personality: Signed 29-Jun-2017 Chest PA and Lateral Result: Comments: See Note; NOTES: [facility] Imaging Services [address] [place] [address] Chest PA and Lateral MR#: [id number] Acct: [id number] Name: MALI WALDEN Rep #: [id number] : 1940 F 76 From: Liam Arreaga PCP: Diana Troncoso MD Status: [facility] Study: Chest PA and Lateral Date of Exam: 06/29/17 Exam# [id number] Ordering Dr: Brennan Fleming MD STUDY: X-RAY [...] CC: Brennan Fleming MD; Diana Troncoso MD Radio Personality: Signed 22-Jun-2017 Office Visit Report Result: Comments: See Note; NOTES: [facility] Services [address] [place] [address] OFFICE VISIT Date of Service: 06/21/17 MR#: [id number] Acct: [id number] Patient: MALI WALDEN Rep #: [id number] : 1940 Provider: Nishi Johnson Age/Sex: 76/F Location: [facility] Status: Signed Comments Summary Comments: Pacemaker instructions, [...] Stress Report Result: Comments: See Note; NOTES: [facility] Cardiovascular Services [address] [place] [address] MR#: [id number] Acct: [id number] Name: MALI WALDEN Rep #: [id number] : [birth year] 76 From: Brennan Fleming MD [...] Vang Date Dictated: 06/15/17921 Date Transcribed: 06/15/17921 Radio Personality: [place] Signed 09-Jun-2017 Cardiology Visit Report Result: Comments: See Note; NOTES: [facility] [place] [address] OFFICE VISIT Date of Service: 06/08/17 MR#: [id number] Acct: [id number] Name: MALI WALDEN p #: [id number] : 1940 Provider: Amna Vang Age/Sex: 76/F Location: [facility] Status: Signed HPI HPI Details: MALI [...] was in the hospital last month in [place]. She was lightheaded and dizzy. 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, vomiting blood/hematemesis, bright, red blood in [...] and Lateral Result: Comments: See Note; NOTES: [facility] Imaging Services [address] [place] [address] Chest PA and Lateral MR#: [id number] Acct: [id number] Name: MALI WALDEN Rep #: [id number] : 1940 F 76 From: Tex Junior DO PCP: Diana Troncoso MD Status: REG CLI Study: Chest PA and Lateral Date of Exam: 04/28/17 Exam# [id number] Ordering Dr: Katerine Campo DO STUDY: X-RAY [...] Tex Junior DO at 9:39 EST Tel [phone], Service support , CC: Diana Troncoso MD; Katerine Campo DO Radio Personality: Signed 02-Mar-2017 SCREENING MAMM (CAD), BILAT Result: Comments: See Note; NOTES: [facility] Imaging Services [address] [place] [address] SCREENING MAMM (CAD), BILAT MR#: [id number] Acct: [id number] Name: MALI WALDEN Rep #: [id number] : 1940 F 76 From: Archie Alvares MD PCP: Diana Troncoso MD Status: REG CLI Study: SCREENING MAMM (CAD), BILAT Date of Exam: 03/02/17 Exam# [id number] Ordering Dr: Diana Troncoso MD MA MMOGRAPHY [...] delay biopsy of a clinically suspicious abnormality. [id number] Electronically Signed: Archie Alvares MD at 16:04 EST Tel [phone], Service support , CC: Diana Troncoso MD Radio Personality: Signed 03-Jan-2017 Inital Evaluation (1) - PT Result: Comments: See Note; NOTES: [facility] Physical Therapy [facility] [address] [place] [address]. [address] [place] [address] Fax REHABILITATION SERVICES INITIAL EVALUATION MR#: [id number] Acct: [id number] Name: MALI WALDEN Rep #: [id number] : 1940 76 From: Moody Tang DPT Referring Dr.: Berto Carrillo MD Status: REG RCR Insurance: [facility] Wen vazquez's Visit Information MALI WALDEN [...] gym exercises with increased tolerance. 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 Please let me know if there are questions or concerns regarding this plan of care . Physician Signature: Date: <Electronically signed by Moody Tang DPT> 01/03/17 1457 CC: Diana Troncoso MD; Berto lawrence MD CLS Signed For Medicare only, by signing this I certify the plan of care. Physicians Signature Date 03-Dec-2016 Carotid Duplex Ultrasound Result: Comments: See Note; NOTES: [facility] Cardiovascular Services [address] [place] [address] Carotid Duplex Ultrasound 12/03/16 1106 MR#: [id number] Acct: [id number] Name: MALI WALDEN Rep #: [id number] : 1940 76 From: Charlie Aragon MD [...] the left vertebral artery. Procedure Carotid Duplex 00195. The exam was diagnostic. Exam performed in department. Interpretation Summary M ild (<50%) stenosis right extracranial internal carotid. Mild (<50%) stenosis left extracranial internal carotid. Flow within the vertebral arteries is antegrade bilaterally. Ordering Physician: Manoj Young Performed By: Rey Sánchez Val 12/03/162032 Date Charlie Aragon MD CC: Diana Troncoso MD; Manoj Young MD Date Dictated: 12/03/16 1106 Date Transcr ibed: 12/03/162032 Radio Personality: Signed 28-Jul-2016 PT D/C Summary (1) Result: Comments: See Note; NOTES: [facility] [address] [place] [address]. [address] [place], [place] [address] Fax REHABILITATION SERVICES [facility] SUMMARY MR#: [id number] Acct: [id number] Name: MALI WALDEN Rep #: [id number] : 1940 75 From: Cert. MAYRA Monet PTT Referring Dr.: Diana Troncoso MD Status: REG RCR Insurance: [facility] HP - PT D/C Summary It [...] PAIN NOW. DID A WORK SHOP IN [place] WEDNESDAY AND MADE A POT ON THE [...] please feel free to call me at [phone] . Thank you for the referral of this patient. Sincerely, Yolanda Cassidy <Electronically signed by Yolanda Cassidy PTCert. NUNEZT> 07/28/16 1143 CC: Diana Troncoso MD TERESSA Signed 26-Jun-2016 Chest PA and Lateral Result: Comments: See Note; NOTES: [facility] Imaging Services [address] [place] [address] Verdana 4d Chest PA and Lateral MR#: [id number] Acct: [id number] Name: MALI WALDEN Rep #: [id number] : 1940 F 75 From: Rubens Waters MD PCP: Diana Troncoso MD Status: REG CLI Study: Chest PA and Lateral Date of Exam: 06/26/16 Exam# [id number] Ordering Dr: Marleni Kang DO STUDY: X-RAY [...] at 13:11 EST Tel , Service support [phone], CC: Diana Troncoso MD; Marleni Kang DO Radio Personality: Signed 20-May-2016 Re-Evaluation - PT (1) Result: Comments: See Note; NOTES: [facility] Physical Therapy [address] [place] [address] Fax [facility] MR#: [id number] Acct: [id number] Name: MALI WALDEN Rep #: [id number] : 1940 75 From: Yolanda Cassidy PT, Cert. 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 Sincerely, Yolanda Cassidy < Electronically signed by Yolanda Cassidy PT, Cert. MDT> 05/20/16 1026 CC: Diana Troncoso MD TERESSA Signed For Medicare only, by signing this I certify the plan of care. _ Physicians Signature Date 07-May-2016 Liver Result: Comments: See Note; NOTES: [facility] Imaging Services [address] [place] [address] Felipe 4d Liver MR#: [id number] Acct: [id number] Name: MALI WALDEN Rep #: [id number] : 1940 F 75 From: Archie Alvares MD PCP: Diana Troncoso MD Status: REG CLI Study: Liver Date of Exam: 05/07/16 Exam# [id number] Ordering Dr: Diana Troncoso MD STUDY: ABDOMINAL [...] Archie Alvares MD at 10:59 EST Tel [phone], Service support [phone], CC: Diana Troncoso MD Radio Personality: Signed 23-Apr-2016 Inital Evaluation (1) - PT Result: Comments: See Note; NOTES: [facility] [address] [place], [place] [address] Fax REHABILITATION SERVICES INITIAL EVALUATION MR#: [id number] Acct: [id number] Name: MALI WALDEN Rep #: [id number] : 1940 75 From: Yolanda Cassidy PT, Cert. MDT Referring Dr.: Diana Troncoso MD Status: REG R [facility] Patient's Visit Information MALI [...] be FAXED BACK to u s at [phone] for Medicare purposes. Please let me know [...] with Pelvis Result: Comments: See Note; NOTES: [facility] Imaging Services [address] [place] [address] Verdana 4d Hip 2-3 Views with Pelvis MR#: [id number] Acct: [id number] Name: MALI WALDEN Rep #: [id number] : 1940 F 75 From: Archie Alvares MD PCP: Diana Troncoso MD Status: REG CLI Study: Hip 2-3 Views with Pelvis Date of Exam: 02/10/16 Exam# [id number] Ordering Dr: Diana Troncoso MD STUDY: X-RAY [...] Archie Alvares MD at 13:03 EDT Tel [phone], Service support [phone], CC: Diana Troncoso MD Radio Personality: Signed 10-Feb-2016 L/S Spine Min 4 Views Result: Comments: See Note; NOTES: [facility] Imaging Services [address] [place] [address] Verda 4d L/S Spine Min 4 Views MR#: [id number] Acct: [id number] Name: MALI WALDEN Rep #: [id number] : 1940 F 75 From: Archie Alvares MD PCP: Diana Troncoso MD Status: REG CLI Study: L/S Spine Min 4 Views Date of Exam: 02/10/16 Exam# [id number] Ordering Dr: Diana Troncoso MD S TUDY: [...] Archie Alvares MD at 12:46 EDT Tel [phone], Service support [phone], CC: Diana Troncoso MD Radio Personality: Signed 22-Jan-2016 Bilat Scrn Digital AND CAD Result: Comments: See Note; NOTES: [facility] Imaging Services [address] [place] [address] Verdana 4d Bilat Scrn Digital AND CAD MR#: [id number] Acct: [id number] Name: MALI WALDEN Rep #: [id number] : 1940 F 75 From: Archie Alvares MD PCP: Diana Troncoso MD Status: REG CLI Study: Bilat Scrn Digital AND CAD Date of Exam: 01/22/16 Exam# [id number] Ordering Dr: Dereck Troncoso MD MAMMOGRAPHY - [...] delay biopsy of a clinically suspicious abnormality. [id number] Electronically Signed: Archie Alvares MD at 10:36 EDT T [phone], Service support [phone], CC: Diana Troncoso MD Radio Personality: Signed 08-Feb-2015 Emergency Department Summary Result: Comments: See Note; NOTES: [facility] Medical Records Department [address] [place] [address] Emergency Department Summary MR#: [id number] Acct: [id number] Name: MALI WALDEN Rep #: [id number] : 1940 74 From: Solomon Morse MD [...] C: Diana Ribeiro MD T: NTS JOB: [id number] 02/08/15 0119 <Electronically signed by Solomon Morse MD> Date Solomon Morse MD Cosigner Signature (If Indicated): Date CC: Diana Troncoso MD; Naga Ribeiro Date Dictated: 02/07/15 163 Date Transcribed: 02/07/151633 Radio Personality: Signed 07-Feb-2015 Discharge Instruction Result: Comments: See Note; NOTES: [facility] Medical Records Department [address] [place] [address] Discharge Instruction 02/07/15 163 MR#: [id number] Acct: [id number] Name: MALI WALDEN Rep #: [id number] : 1940 74 From: Solomon Morse MD [...] any unexpected problems, contact your doctor. Call [employer] [facility] ([phone]) or report to the closest Emergency Room. Call 911 if necessary. 02/07/151631 <Electronically signed by Solomon Morse MD> Date Solomon Morse MD Cosigner Signature (If Indicated): Date CC: Diana Troncoso MD 18-Jan-2015 Nuclear Stress Test - Treadmil Result: Comments: See Note; NOTES: [facility] Imaging Services [address] [place] [address] STRESS TEST REPORT 01/18/15 0925 MR#: [id number] Acct: [id number] Name: MALI WALDEN Rep #: [id number] : 1940 74 From: Manoj Young MD [...] LVEF of 67%. Manoj Young MD T: [facility] JOB: [id number] 01/18/15 1221 <Chapito jara signed by Manoj Young MD> Date Manoj Young MD CC: Diana Troncoso MD; Manoj Young MD Date Dictated: 01/18/15924 Date Lux scribed: 01/18/15924 Radio Personality: Signed 16-Jan-2015 Bilat Scrn Digital AND CAD Result: Comments: See Note; NOTES: [facility] Imaging Services [address] [place] [address] Breast Imaging Report MR#: [id number] Acct: [id number] Name: MALI WALDEN Rep #: : 1940 F 74 From: Archie Alvares MD PCP: Diana Troncoso MD Status: REG CLI Study: Bilpaty Encarnacionn Digital AND CAD Date of Exam: 01/16/15 Exam# [id number] Ordering Dr: Diana Troncoso MD MAMMOGRAPHY - [...] Archie belle MD at 15:35 EDT Tel [phone], Service support [phone], CC: Diana Troncoso MD Radio Personality: Signed 16-Dec-2014 Emergency Department Summary Result: Comments: See Note; NOTES: [facility] Medical Records Department [address] [place] [address] Emergency Department Summary MR#: [id number] Acct: [id number] Name: MALI WALDEN Rep #: [id number] : 1940 74 From: George Colvin DO [...] condition. George Colvin DO T: NTS JOB: [id number] 12/16/14 1607 <Electronically signed by George Colvin DO> Date George Colvin DO Cosigner Signature (If Indicated): Date CC: Diana Troncoso MD Date D ictated: 12/16/141039 Date Transcribed: 12/16/141039 Radio Personality: Signed 16-Dec-2014 Discharge Instruction Result: Comments: See Note; NOTES: [facility] Medical Records Department [address] [place] [address] Discharge Instruction 12/16/14 1036 MR#: [id number] Acct: [id number] Name: MALI WALDEN Rep #: [id number] : 1940 74 From: George Colvin DO PCP: Diana Troncoso MD Status: REG ER ED Disposition - Plan for ED Patient: Chief Complaint: Abd Pain Instructions: ED Di verticulitis Prescriptions: Hydrocodone Bitart/Apap 5-325 [[place] 5/325] 1 - 2 tablet PO Q4H [...] problems, contact your doctor. Call [facility] ([phone]) or report to the closest Emergency Room. Call 911 if necessary. 12/16/14 1037 <Electronically signed by George martines DO> Date George Colvin DO Cosigner Signature (If Indicated): Date CC: Diana Troncoso MD 16-Dec-2014 Abdomen/Pelvis without Cont Result: Comments: See Note; NOTES: [facility] Imaging Services [address] [place] [address] CAT Scan Report MR#: [id number] Acct: [id number] Name: MALI WALDEN Rep #: [id number] : 1940 F 74 From: Miguel Tidwell PCP: Diana Troncoso MD Status: REG ER Study: Abdomen/Pelvis without Cont Date of Exam: 12/16/14 Exam# [id number] Ordering Dr: George Colvin DO STUDY: CT [...] at 10:32 EDT Tel , Service support [phone], CC: Diana wright MD; George Colvin DO Radio Personality: Signed 13-Nov-2014 Echocardiogram Complete Result: Comments: See Note; NOTES: [facility] Cardiovascular Services [address] [place] [address] Echo Complete 11/13/14 0720 MR#: [id number] Acct: [id number] Name: MARÍA ELENA WALDEN Rep #: [id number] : 1940 74 From: Manoj Young MD Attending Dr: Manoj Young MD Status: REG CLI Ordering Dr: Manoj Young MD Date: 11/13/14 Location: [facility] Sex: F C Admitted: Procedure This [...] MD Date Dictated: 11/13/14719 Date Transcribed: 11/13/142054 Radio Personality: Signed 22-Aug-2014 PT Discharge Summary Result: Comments: See Note; NOTES: [facility] Physical Therapy [place] [address] [facility] [place], [place] [address] Fax REHABILITATION SERVICES DISCHARGE SUMMARY MR#: [id number] Acct: [id number] Name: MALI WALDEN Rep #: [id number] : 1940 73 From: Anibal Decker Referring [...] program and has a membership here at [facility] as she will continue on her own [...] followup. Anibal Decker, PT T: NTS JOB: [id number] <Electronically signed by Anibal Decker > 08/22/14 0746 CC: Signed 02-Jul-2014 Chest PA and Lateral Result: Comments: See Note; NOTES: [facility] Imaging Services [address] [place] [address] Radiology Report MR#: [id number] Acct: [id number] Name: MALI WALDEN Rep #: [id number] : 1940 F 73 From: Rubens Waters MD PCP: Diana Troncoso MD Status: REG CLI Study: Chest PA and Lateral Date of Exam: 07/02/14 Exam# [id number] Ordering Dr: Diana Troncoso MD STUDY: X-RAY [...] at 14:51 EDT Tel , Service support [phone], CC: Diana Troncoso MD Radio Personality: Signed 28-Jun-2014 Inital Evaluation - PT Result: Comments: See Note; NOTES: [facility] Physical Therapy [address] [place] [address] Fax REHABILITATION SERVICES INITIAL EVALUATION MR#: [id number] Acct: [id number] Name: MALI WALDEN Rep #: [id number] : 1940 73 From: Anibal Decker Referring [...] one fall was on a trip to [place] when the dog walked in front of [...] is a [employer] member here at [facility], but has not been able to get [...] reciprocal heel and toe tapping is good. Yqls-sf-ssha test is good. Re ciprocal hand tapping [...] will score at least 64/80 on lower [facility] ty functional scale to help show [...] NuStep. Anibal Decker, PT T: NTS JOB: [id number] <Electronically signed by Anibal Decker > 06/28/14 0929 CC: DD: 0 06/27/14 Signed For Medicare only, by signing this I certify the plan of care. Physicians Signature Date 06-Jun-2014 Chest PA and Lateral Result: Comments: See Note; NOTES: [facility] Imaging Services [address] [place] [address] Radiology Report MR#: [id number] Acct: [id number] Name: MALI WALDEN Rep #: [id number] : 1940 F 73 From: Archie Alvares MD PCP: Diana Troncoso MD Status: REG CLI Study: Chest PA and Lateral Date of Exam: 06/06/14 Exam# [id number] Ordering Dr: Jacquelyn Garcia STUDY: X-RAY CHEST [...] Archie Alvares MD at 15:28 EST Tel [phone], Service support [phone], CC: Jacquelyn Garcia; Diana Troncoso MD Radio Personality: Signed 09-Apr-2014 Knee 4 or More Views Result: Comments: See Note; NOTES: [facility] Imaging Services [address] [place] [address] Radiology Report MR#: [id number] Acct: [id number] Name: MALI WALDEN Rep #: [id number] : 1940 F 73 From: Rubens Waters MD PCP: Diana Troncoso MD Status: REG CLI Study: Knee 4 or More Views Date of Exam: 04/09/14 Exam# [id number] Ordering Dr: Katerine Campo DO STUDY: X-RAY [...] MD at 12:15 EST , Service support [phone], CC: Diana Troncoso MD; Katerine Campo DO Radio Personality: Signed 09-Apr-2014 Ribs Unil 2V No CXR Result: Comments: See Note; NOTES: [facility] Imaging Services [address] [place] [address] Radiology Report MR#: [id number] Acct: [id number] Name: MALI WALDEN Rep #: [id number] : 1940 F 73 From: Rubens Waters MD PCP: Diana Troncoso MD Status: REG CLI Study: Ribs Unil 2V No CXR Date of Exam: 04/09/14 Exam# [id number] Ordering Dr: Katerine Campo DO STUDY: X-RAY [...] MD at 12:11 EST , Service support [phone], CC: Diana Troncoso MD; Katerine Campo DO Radio Personality: Signed 07-Feb-2014 Liver Result: Comments: See Note; NOTES: [facility] Imaging Services [address] [place] [address] Ultrasound Report MR#: [id number] Acct: [id number] Name: MALI WALDEN Rep #: [id number] : 1940 F 73 From: Archie Alvares MD PCP: Diana Troncoso MD Status: REG CLI Study: Liver Date of Exam: 02/07/14 Exam# [id number] Ordering Dr: Jacquelyn Garcia STUDY: ABDOMINAL ULTRASOUND [...] Alvares MD at 10:36 ED T Tel [phone], Service support [phone], CC: Jacquelyn Garcia; Diana Troncoso MD Radio Personality: Signed 25-Sep-2013 Ribs Unil 2V No CXR Result: Comments: See Note; NOTES: [facility] Imaging Services [address] [place] [address] Radiology Report MR#: [id number] Acct: [id number] Name: MALI WALDEN Rep #: [id number] : 1940 From: Archie Alvares MD PCP: Diana Troncoso MD Status: REG CLI Study: Ribs Unil 2V No CXR Date of Exam: 09/25/13 Exam# [id number] Ordering Dr: Jacquelyn Garcia STUDY: X-RAY - [...] Archie Alvares MD at 15:44 EDT Tel [phone], Service support [phone], Fax CC: Jacquelyn Garcia; Diana Troncoso MD Radio Personality: Signed 22-Aug-2013 Bilat Scrn Digital & CAD Result: Comments: See Note; NOTES: [facility] Imaging Services [address] [place] [address] Breast Imaging Report MR#: [id number] Acct: [id number] Name: MALI WALDEN Rep #: [id number] : 1940 72 From: Archie Alvares MD PCP: Diana Troncoso MD Status: REG CLI Exam# [id number] Ordering Dr: Diana Troncoso MD MAMMOGRAPHY - [...] Signed: Lina Monson at 11:24 EDT Tel [phone], Service support [phone], CC: Diana Troncoso MD Radio Personality: Signed Immunization Name Dates Details Influenza (3 years and up) on: 08-Feb-2007 Comments: given in left deltoid, 0.5cc, lot#[id number], exp.10.17.07 WF Influenza (3 years and up) on: 20-Mar-2008 Comments: Lot #[id number]-6/30/08Site-right deltoidDose0.5mlgiven by Caro Vail LPN Influenza (3 years and up) on: 11-Jan-2009 Comments: Lot #[id number] 4PExp-08/2009Site-Left deltoidgiven by:FLIP Pneumococcal (2 years and up) on: 07-Jan-2015 Comments: Site: Deltoid (Left) Lot #: <Undefined> Pneumococcal conjugate vaccine, 13 valent, IM Comments: winter 2016 [facility] Family History Unknown Family Member Name Dates Details Brother 1 Comments: Bladder CA, prostate, smoker Status: Active Brother 2 Comments: of [place] 66yo, obese Status: Active Daughter 1 Comments: [...] smoker Vital Signs Date Test Result Details 71-Tnw-284614:01 Temperature 97.6 f Comments: Method: Oral Pulse 70 /min Comments: Pattern: Regular Respiration Rate 18 /min O2 SAT 98 % Comments: Room air BP Systolic 130 mm[Hg] Comments: Patient Position: Sitting BP Diastolic 70 mm[Hg] Comments: Patient Position: Sitting Weight 162 lb 26-Mjv-30018:44 Temperature 97.6 f Comments: Method: Temporal Pulse [...] copy of this report has been sent [phone].PATIENT NOT FASTINGPERFORMED BY: [facility]oMcl[facility] Region6370 [facility] [id number] Info rmation: FX [phone] (97868) ALT (SGPT) 47 [iU]/L (Abnormal) Range: 0-32 AST (SGOT) 32 [iU]/L (Normal) Range: 0-40 Alkaline Phosphatase 90 [iU]/L (Normal) Range: 39-117 Bilirubin, Direct 0.19 mg/dL (Normal) Range: 0.00-0.40 Bilirubin, Total 0.7 mg/dL (Normal) Range: 0.0-1.2 Albumin 4.5 g/dL (Normal) Range: 3.5-4.8 Protein, Total 6.8 g/dL (Normal) Range: 6.0-8.5 :20 LDL Cholesterol (Direct) Comments: PATIENT WAS FASTINGPERFORMED BY: INETCO Systems LimitedLourdes Medical Center of Burlington CountyXibszp6900 [facility] [id number] LDL Chol. (Direct) 83 mg/dL (Normal) Range: 0-99 : Written Authorization WAR (Normal) Comments: PATIENT WAS FASTINGPERFORMED BY: [facility]6370 [facility] [id number] 20 Comments: Written Authorization Received.Authorization received from EDUARDO BATEMAN LPN [id number] by Holley Ma :20 Metabolic Panel, Comments: PATIENT WAS FASTINGPERFORMED BY: [place] [address]897 [facility] [id number] BY: [facility]6370 [facility] [id number] Comprehensive (73509) ALT (SGPT) 38 [iU]/L (Abnormal) Range: 0-32 [...] 8-27 Glucose 126 mg/dL (Abnormal) Range: 65-99 19-Huw-55796:20 LIPOPROTEIN, BLD, BY NMR Comments: PATIENT WAS FASTINGPERFORMED BY: BN [facility] [address] [id number] BY: CB [facility] Dyaiey7690 [facility] [id number] (94829) LP-IR Score 66 (Abnormal) Comments: INSULIN RESISTANCE MARKER <--Insulin Sensitive Insulin Resistant--> Percentile in Reference PopulationInsulin Resistance ScoreLP-IR Score Low 25th 50th 75th High <27 27 45 63 >63LP-IR Score is inaccurate if patient is non-fasting. .The LP-IR score is a laboratory developed i [facility] that has beenassociated with insulin resistance and [...] were developed and their performance characteristicsdetermined by [employer]. These assays have not been cleared by [...] 1600 - 2000 Very High > 2000 69-Bzn-06734:24 HEPATIC FUNCTION PANEL Comments: PATIENT WAS FASTINGPERFORMED BY: BN LabCoThomas Ville 715097 [facility] [id number] BY: LabCoLourdes Medical Center of Burlington CountyMmloey6708 [facility] [id number] (57842) ALT (SGPT) 34 [iU]/L (Abnormal) Range: 0-32 AST (SGOT) 30 [iU]/L (Normal) Range: 0-40 Alkaline Phosphatase 102 [iU]/L (Normal) Range: 39-117 Bilirubin, Direct 0.14 mg/dL (Normal) Range: 0.00-0.40 Bilirubin, Total 0.7 mg/dL (Normal) Range: 0.0-1.2 Albumin 4.4 g/dL (Normal) Range: 3.5-4.8 Protein, Total 6.7 g/dL (Normal) Range: 6.0-8.5 76-Owh-85270:24 LIPOPROTEIN, BLD, BY NMR Comments: PATIENT WAS FASTINGPERFORMED BY: BN [facility] [address] [id number] BY: CB [facility] Nasdnx5931 [facility] [id number]; fu 8-20 DB (69987) LP-IR Score 64 (Abnormal) Comments: INSULIN RESISTANCE MARKER <--Insulin Sensitive Insulin Resistant--> Percentile in Reference PopulationInsulin Resistance ScoreLP-IR Score Low 25th 50th 75th High <27 27 45 63 >63LP-IR Score is inaccurate if patient is non-fasting. .The LP-IR score is a laboratory developed i [facility] that has beenassociated with insulin resistance and [...] were developed and their performance characteristicsdetermined by LipTk20. These assays have not been cleared by [...] 1600 - 2000 Very High > 2000 07-Hby-223847:19 Basic Metabolic Profile (BMP) Comments: Order Date: 07/30/17Order Info: 0667-1 - [facility] [address] [place], [address] GAP 10 (Normal) Range: 5-15 CO2 27.0 [...] A.D.A. criteria.Please note revised GLUCOSE reference range /02/2018. 94-Csz-550238:19 CBC W/Diff, Automated Comments: Order Date: 07/30/17Order Info: 0184-1 - CBCDOrder Info: 56384-1 - [facility] Ctjpoayrso5545 [facility] HospitalvikasElwood, [place], [address] Absolute Lymph 2.02 {X10_3/ul} (Normal) Range: 0.83-4.51 [...] Date: 07/30/17Order Info: 0184-1 - CBCDOrder Info: 55734-8 - SED[facility] [address]jxprq[address] [place], [place], [address] SED RATE 26 mm/h (Normal) Range: 0-30 28-Bxp-725538:59 Urinalysis, Office (48747) UA - LEUKOCYTE ESTERASE Negative (Normal) UA - NITRITE Negative (Normal) URINE UROBILINGN SILVESTRE TIMED Normal mg/dL (Normal) UA - PROTEIN Negative mg/dL (Normal) UA - PH 7 (Normal) UA - BLOOD Negative (Normal) UA - SPECIFIC GRAVITY 1.015 (Normal) UA - KETONES Negative mg/dL (Normal) UA - BILIRUBIN Negative (Normal) UA - GLUCOSE Negative (Normal) 3-Yor-888204:01 Basic Metabolic Profile (BMP) Comments: [facility] Vyqbiaquly2524 [facility] [address] [place], [place], [address] GAP 7 (Normal) Range: 5-15 CO2 26.0 [...] Comments: Please note revised GLUCOSE reference range dhglrfrbi92/02/2018. 6-Ate-887514:01 CBC-Complete Blood Cnt No Diff Comments: [facility] [address] [place], [place], [id number] MPV 10.5 fL (Normal) Range: 6.2-12.0 PLT [...] 4.2-5.4 WBC 7.2 K/mm3 (Normal) Range: 4.4-11.0 7-Fze-323107:01 Prothrombin Time w/INR Comments: [facility] [address] [place], [place], [address] INR 1.0 (Normal) PROTIME 12.7 s (Normal) Range: 11.7-14.9 6-Pvd-402959:01 Urinalysis, Complete Comments: How was Urine Obtained? BAKER PAINT TO SPECIFYWKettering Health Springfield Rbdzfawjrg[address] [place], [address] MUCUS, URINE 0 SEEN {/hpf} [...] (Normal) CLARITY Clear (Normal) COLOR Yellow (Normal) 9-Smy-286349:37 Urinalysis, Office (14152) UA - LEUKOCYTE ESTERASE Negative (Normal) UA - NITRITE Negative (Normal) URINE UROBILINGN SILVESTRE TIMED 2 mg/dL (Normal) UA - PROTEIN Negative mg/dL (Normal) UA - PH 7.0 (Normal) UA - BLOOD Negative (Normal) UA - SPECIFIC GRAVITY 1.010 (Normal) UA - KETONES Negative mg/dL (Normal) UA - BILIRUBIN Negative (Normal) UA - GLUCOSE Negative (Normal) 96-Wgi-672000:00 URINE RASHAD CULTURE-SILVESTRE COL Comments: PATIENT NOT FASTINGPERFORMED BY: [facility] Wzjxkp4294 [facility] [id number] Information: SRC:UC COUNT (42839) Antimicrobial MIHEAD (Normal) Comments: S = Susceptible; [...] mL (Abnormal) Urine Final report Culture,Comprehensive (Abnormal) 27-Ywm-34155:06 Urinalysis, Office (73412) UA - LEUKOCYTE ESTERASE Large (Normal) UA [...] METABOLIC PANEL, Comments: PATIENT WAS FASTINGPERFORMED BY: TastemakerX[address] [id number] BY: ILIR ZAPITANO Jjzdrv8256 [facility] [id number] [facility] [[email or web address]] (67472) ALT (SGPT) 45 [iU]/L (Abnormal) Range: 0-32 [...] BY NMR Comments: PATIENT WAS FASTINGPERFORMED BY: [employer] [id number] BY: LabSoutheast Missouri Community Treatment CenterTttajf2988 [facility] [id number] (80672) LP-IR Score 52 (Abnormal) Comments: INSULIN RESISTANCE MARKER <--Insulin Sensitive Insulin Resistant--> Percentile in Reference PopulationInsulin Resistance ScoreLP-IR Score Low 25th 50th 75th High <27 27 45 63 >63LP-IR Score is inaccurate if patient is non-fasting. .The LP-IR score is a laboratory developed i [facility] that has beenassociated with insulin resistance and [...] 2000 Very High > 2000 23-Aug-20179:42 TSH (31353) Comments: PATIENT WAS FASTINGPERFORMED BY: [employer] [address] [id number] BY: [employer]70 Xavier RoadDublin [place] [id number] TSH 2.070 {uIU/mL} (Normal) Range: 0.450-4.500 7-Gor-816406:34 Vitamin B-12 (cyanocobalamin) Comments: these ones today; PATIENT NOT FASTINGPERFORMED BY: [employer] [id number] BY: [employer] Kvdxhj8421 Xavier RoadDublin [place] [id number] (58321) Vitamin B12 677 pg/mL (Normal) Range: 211-946 8-Npw-308486:34 RPR (RAPID PLASMA Comments: PATIENT NOT FASTINGPERFORMED BY: [employer] [id number] BY: [employer] Wlnpfp7639 Xavier RoadDublin [place] [id number] REAGIN) (49187) RPR Non Reactive (Normal) 8-Bot-663525:34 Methymalonic Acid, Serum Comments: PATIENT NOT FASTINGPERFORMED BY: [employer] [id number] BY: [employer] Uwzklt6052 Xavier RoadDublin [place] [id number] Information: S97990, 875644 (73522) Methylmalonic Acid, Serum 176 nmol/L (Normal) Range: 0-378 9-Opu-323385:18 HEPATIC FUNCTION PANEL Comments: PATIENT WAS FASTINGPERFORMED BY: [employer] [id number] BY: [facility]6370 [facility] [id number] (65356) ALT (SGPT) 36 [iU]/L (Abnormal) Range: 0-32 AST (SGOT) 32 [iU]/L (Normal) Range: 0-40 Alkaline Phosphatase, S 104 [iU]/L (Normal) Range: 39-117 Bilirubin, Direct 0.13 mg/dL (Normal) Range: 0.00-0.40 Bilirubin, Total 0.5 mg/dL (Normal) Range: 0.0-1.2 Albumin, Serum 4.6 g/dL (Normal) Range: 3.5-4.8 Protein, Total, Serum 6.7 g/dL (Normal) Range: 6.0-8.5 6-Spn-726566:18 LIPOPROTEIN, BLD, BY NMR Comments: PATIENT WAS FASTINGPERFORMED BY: [employer] [id number] BY: INETCO Systems LimitedJustin Ville 4353570 [facility] [id number] (67228) LP-IR Score 66 (Abnormal) Comments: INSULIN RESISTANCE MARKER <--Insulin Sensitive Insulin Resistant--> Percentile in Reference PopulationInsulin Resistance ScoreLP-IR Score Low 25th 50th 75th High <27 27 45 63 >63LP-IR Score is inaccurate if patient is non-fasting. .The LP-IR score is a laboratory developed i [facility] that has beenassociated with insulin resistance and [...] were developed and their performance characteristicsdetermined by [employer]. These assays have not been cleared by [...] 1600 - 2000 Very High > 2000 40-Vat-620054:25 CBC With Differential/Platelet Comments: PATIENT NOT FASTINGPERFORMED BY: [facility]6[address] [facility] [address] [id number] Information: collect by nurse SRC:ADWOA Immature Grans [...] 3.77-5.28 WBC 6.9 {x10E3/uL} (Normal) Range: 3.4-10.8 25-Fpf-317313:25 Comp. Metabolic Panel (14) Comments: PATIENT NOT FASTINGPERFORMED BY: LabCoLourdes Medical Center of Burlington CountyHmwtfw0520 [facility] [id number] ALT (SGPT) 37 [iU]/L (Abnormal) Range: 0-32 [...] umol/L (Normal) Comments: PATIENT NOT FASTINGPERFORMED BY: [employer] Wzzgnn4575 [facility]arentCatawba [facility] [id number] 0:25 Plasma Range: 0.0-15.0 85-Yci-797157:25 Microalb/Creat Ratio, Randm Ur Comments: PATIENT NOT FASTINGPERFORMED BY: [employer] Ddavvo4284 [facility] [id number] Microalb/Creat Ratio <5.6 {mg/g_creat} (Normal) Range: 0.0-30.0 Microalbumin, Urine <3.0 ug/mL (Normal) Creatinine, Urine 53.7 mg/dL (Normal) 02-Xnb-312835:25 Urinalysis, Routine Comments: PATIENT NOT FASTINGPERFORMED BY: [employer] [facility]ifyPsychiatric hospital [id number] Microscopic Examination MICNIP (Normal) Comments: Microscopic not indicated and not performed. Nitrite, Urine Negative (Normal) Urobilinogen,Semi-Qn 0.2 mg/dL (Normal) Range: 0.2-1.0 Bilirubin Negative (Normal) Occult Blood Negative (Normal) Ketones Negative (Normal) Glucose Negative (Normal) Protein Negative (Normal) WBC Esterase Negative (Normal) Appearance Clear (Normal) Urine-Color Yellow (Normal) pH 7.0 (Normal) Range: 5.0-7.5 Specific Alta 1.014 (Normal) Range: 1.005-1.030 05-Lvh-421587:25 Urine Culture, Routine Comments: PATIENT NOT FASTINGPERFORMED BY: [employer] Zipaid1532 [facility] [id number] Result 1 LESS (Normal) Comments: Culture shows less than 10,000 colony forming units of bacteria permilliliter of urine. This colony count is not generally consideredto be clinically significant. Urine Culture, Routine Final report (Normal) 18-Zbl-317346:59 URINE RASHAD CULTURE-IDENTIFICATN Comments: PATIENT NOT FASTINGPERFORMED BY: [employer] Xkvzhb5616 [facility] [id number] Information: SRC: (36140) Antimicrobial MIHEAD (Normal) Comments: S = Susceptible; [...] mL (Abnormal) Urine Final report Culture,Comprehensive (Abnormal) 8-Ifh-578066:01 URINE RASHAD CULTURE-IDENTIFICATN Comments: PATIENT NOT FASTINGPERFORMED BY: [facility]oMcl[facility] Region6370 [facility] [id number] Information: SRC: (92758) Result 1 NG36 (Normal) Comments: No growth in 36 - 48 hours. Urine Culture,Comprehensive Final report (Normal) 19-Nov-20169:11 Urinalysis, Office (41264) UA - LEUKOCYTE ESTERASE Large (Normal) UA - NITRITE Positive (Normal) URINE UROBILINGN SILVESTRE TIMED 2 mg/dL (Normal) UA - PROTEIN 30 mg/dL (Normal) UA - PH 6 (Abnormal) UA - BLOOD Negative (Normal) UA - SPECIFIC GRAVITY 1.005 (Normal) UA - KETONES 15 mg/dL (Abnormal) UA - BILIRUBIN Large (Normal) UA - GLUCOSE 100 (Abnormal) 35-Jhk-61176:16 CBC W/Diff, Automated Comments: [facility] Vnbseougoi[address] [place], [place], [address] Absolute Lymph 1.78 {X10_3/ul} (Normal) Range: 0.83-4.51 [...] 4.2-5.4 WBC 5.7 K/mm3 (Normal) Range: 4.4-11.0 9-Xxk-710731:00 HSV CULTURE SCREEN 916842 Comments: PERFORMED BY: [facility]6370 [facility] [id number] Information: SRC:MO (43081) HSV Culture Without Typing Negative (Normal) 62-Xhl-810125:58 URINE RASHAD CULTURE-IDENTIFICATN Comments: PATIENT NOT FASTINGPERFORMED BY: [employer] Wztrfh2598 [facility] [id number] Information: SRC:UC (33835) Antimicrobial MIHEAD (Normal) Comments: S = Susceptible; [...] mL (Abnormal) Urine Final report Culture,Comprehensive (Abnormal) 08-Cyw-61959:21 Urinalysis, Office (07152) UA - LEUKOCYTE ESTERASE Moderate (Normal) UA - NITRITE Negative (Normal) URINE UROBILINGN SILVESTRE TIMED 2 mg/dL (Normal) UA - PROTEIN 30 mg/dL (Normal) UA - PH 6.0 (Normal) UA - BLOOD Hemolyzed Large (Normal) UA - SPECIFIC GRAVITY 1.020 (Normal) UA - KETONES Negative mg/dL (Normal) UA - BILIRUBIN Negative (Normal) UA - GLUCOSE Negative (Normal) :32 HgA1C , Office (67756) HgA1C , Office 5.4 % (Normal) Range: 4.6 - 7.1 :36 T4, FREE (THYROXINE) (64834) Comments: PATIENT NOT FASTINGPERFORMED BY: [facility] Pevnbw3894 [facility] [id number] T4,Free(Direct) 1.34 ng/dL (Normal) Range: 0.82-1.77 :36 TSH (63381) Comments: PATIENT NOT FASTINGPERFORMED BY: [facility] Zblfag1551 [facility] [id number] TSH 2.400 {uIU/mL} (Normal) Range: 0.450-4.500 45-Iah-278389:36 HEPATIC FUNCTION PANEL Comments: PATIENT NOT FASTINGPERFORMED BY: LabCoLourdes Medical Center of Burlington CountyIozyxo6927 [facility] [id number] (25579) ALT (SGPT) 59 [iU]/L (Abnormal) Range: 0-32 AST (SGOT) 35 [iU]/L (Normal) Range: 0-40 Alkaline Phosphatase, S 96 [iU]/L (Normal) Range: 39-117 Bilirubin, Direct 0.15 mg/dL (Normal) Range: 0.00-0.40 Comments: Please note reference interval change Bilirubin, Total 0.6 mg/dL (Normal) Range: 0.0-1.2 Albumin, Serum 4.4 g/dL (Normal) Range: 3.5-4.8 Protein, Total, Serum 6.5 g/dL (Normal) Range: 6.0-8.5 :36 Magnesium (54258) Comments: PATIENT NOT FASTINGPERFORMED BY: LabCoLourdes Medical Center of Burlington CountyIvzcjt7437 [facility] [id number] Magnesium, Serum 2.0 mg/dL (Normal) Range: 1.6-2.3 18-Hys-059826:36 Metabolic Panel, Basic Comments: PATIENT NOT FASTINGPERFORMED BY: LabCoLourdes Medical Center of Burlington CountyXrmabe4663 [facility] [id number] (02285) Calcium, Serum 9.9 mg/dL (Normal) Range: 8.7-10.3 [...] three months (approximately); PATIENT WAS FASTINGPERFORMED BY: [employer] [address] [id number] BY: [employer] Wpwmkt0035 [facility] [id number] (10340) T4,Free(Direct) 1.23 ng/dL (Normal) Range: 0.82-1.77 :32 TSH (50918) Comments: in three months (approximately); PATIENT WAS FASTINGPERFORMED BY: [employer] LabIssuurp [address] [id number] BY: P[employer] Corporationlin6370 [facility] [id number] TSH 3.620 {uIU/mL} (Normal) Range: 0.450-4.500 :32 LIPOPROTEIN, BLD, BY NMR Comments: in three months (approximately); PATIENT WAS FASTINGPERFORMED BY: [employer] [address] [id number] BY: Turbine Truck EnginesLourdes Medical Center of Burlington CountyDajfxp3428 [facility] [id number] (64785) LP-IR Score 77 (Abnormal) Comments: INSULIN RESISTANCE MARKER <--Insulin Sensitive Insulin Resistant--> Percentile in Reference PopulationInsulin Resistance ScoreLP-IR Score Low 25th 50th 75th High <27 27 45 63 >63LP-IR Score is inaccurate if patient is non-fasting. .The LP-IR score is a laboratory developed i [facility] that has beenassociated with insulin resistance and [...] were developed and their performance characteristicsdetermined by [employer]. These assays have not been cleared by [...] 1600 - 2000 Very High > 2000 00-Boc-945290:10 HEPATIC FUNCTION PANEL Comments: in three months (approximately); PATIENT NOT FASTINGPERFORMED BY: LabCoLourdes Medical Center of Burlington CountyTtfsxx3218 [facility] [id number] (27659) ALT (SGPT) 112 [iU]/L (Abnormal) Range: 0-32 [...] three months (approximately); PATIENT WAS FASTINGPERFORMED BY: TastemakerX[address] [id number] BY: [employer] [facility] [id number] (25021) Homocyst(e)ine, Plasma 9.3 umol/L (Normal) Range: 0.0-15.0 42-Qfe-978962:10 HEPATITIS PANEL (27314) Comments: today do; PATIENT NOT FASTINGPERFORMED BY: [employer]70 [employer] [facility] [id number] Hep C Virus Ab 0.2 {s/co_ratio} (Normal) Range: 0.0-0.9 Comments: Negative: < 0.8 Indeterminate: 0.8 - 0.9 Positive: > 0.9 . The CDC recommends that a positive HCV antibody result be followed up with a HCV Nucleic Acid Amplification test (553133). Hep B Core Ab, IgM Negative (Normal) HBsAg Screen Negative (Normal) Hep A Ab, IgM Negative (Normal) :32 HEPATIC FUNCTION PANEL Comments: send copy to Dr. dejesus. do today; PATIENT WAS FASTINGPERFORMED BY: [employer] [id number] BY: [employer] [facility] [id number]; apt today DB (48379) ALT (SGPT) 43 [iU]/L (Abnormal) Range: 0-32 AST (SGOT) 33 [iU]/L (Normal) Range: 0-40 Alkaline Phosphatase, S 98 [iU]/L (Normal) Range: 39-117 Bilirubin, Direct 0.14 mg/dL (Normal) Range: 0.00-0.40 Bilirubin, Total 0.5 mg/dL (Normal) Range: 0.0-1.2 Albumin, Serum 4.2 g/dL (Normal) Range: 3.5-4.8 Protein, Total, Serum 6.3 g/dL (Normal) Range: 6.0-8.5 19-Fsn-008582:48 HgA1C , Office (44509) HgA1C , Office 5.7 % (Normal) Range: 4.6 - 7.1 40-Xvv-996338:34 FERRITIN (62425) Comments: PATIENT NOT FASTINGPERFORMED BY: [employer] Bxwclg9650 [facility] [id number] Ferritin, Serum 246 ng/mL (Abnormal) Range: 15-150 30-Gii-456418:34 CERULOPLASMIN (42184) Comments: PATIENT NOT FASTINGPERFORMED BY: [employer] Xhkbfa8565 [facility] [id number] Ceruloplasmin 24.7 mg/dL (Normal) Range: 19.0-39.0 :34 ASM (ANTI SMOOTH MUSCLE Comments: PATIENT NOT FASTINGPERFORMED BY: [employer]oolgo [facility] [id number] ANTIBODY) (07072) Actin (Smooth Muscle) Antibody 7 {Units} (Normal) Range: 0-19 Comments: Negative 0 - 19 Weak positive 20 - 30 Moderate to strong positive >30 . Actin Antibodies are found in 52-85% of patients with autoimmune hepatitis or chronic active hepatitis and in 22% of patients with primary biliary cirrhosis. 18-Eqe-778115:34 ANTI-LIVER/KIDNEY MICROSOMAL Comments: PATIENT NOT FASTINGPERFORMED BY: [employer] [facility] [id number] ANTIBODY (55572) Thyroid Peroxidase (TPO) Ab 9 {IU/mL} (Normal) Range: 0-34 49-Qoy-750548:34 JESS (ANTINUCLEAR ANTIBODY) Comments: PATIENT NOT FASTINGPERFORMED BY: [employer] Vropzr2464 [facility] [id number] (65749) JESS Direct Negative (Normal) 11-Elr-28853:33 Microscopic Examination Comments: PATIENT WAS FASTINGPERFORMED BY: [facility] Tlkhms5276 [facility] [id number] Bacteria Few (Normal) Mucus Threads Present (Normal) Epithelial Cells (non renal) 0-10 {/hpf} (Normal) Range: 0 - 10 RBC 0-2 {/hpf} (Normal) Range: 0 - 2 WBC 0-5 {/hpf} (Normal) Range: 0 - 5 30-Xfb-035369:51 Rapid Flu (82431 x 2) Influenza A Ag neg a and b (Normal) 3-Iuq-651272:20 URINE RASHAD CULTURE-IDENTIFICATN Comments: PATIENT NOT FASTINGPERFORMED BY: [employer] Oyekaj5298 [facility] [id number] Information: [id number] (59307) Antimicrobial MIHEAD (Normal) Comments: S = Susceptible; [...] Final report Culture,Comprehensive (Abnormal) :18 Urinalysis, Office (42412) UA - GLUCOSE Negative (Normal) UA - BILIRUBIN Negative (Normal) UA - KETONES Negative mg/dL (Normal) UA - SPECIFIC GRAVITY 1.010 (Normal) UA - BLOOD Hemolyzed Trace (Normal) UA - PH 5 (Abnormal) UA - PROTEIN Negative mg/dL (Normal) URINE UROBILINGN SILVESTRE TIMED Normal mg/dL (Normal) UA - NITRITE Positive (Normal) UA - LEUKOCYTE ESTERASE Trace (Normal) :33 URINALYSIS, W/ MICRO (84111) Comments: PATIENT WAS FASTINGPERFORMED BY: Turbine Truck EnginesLourdes Medical Center of Burlington CountyPnncrx0822 [facility] [id number] Microscopic Examination See below: (Normal) Comments: Microscopic was indicated and was performed. Nitrite, Urine Negative (Normal) Urobilinogen,Semi-Qn 0.2 mg/dL (Normal) Range: 0.2-1.0 Bilirubin Negative (Normal) Occult Blood Negative (Normal) Ketones Negative (Normal) Glucose Negative (Normal) Protein Negative (Normal) WBC Esterase 1+ (Abnormal) Appearance Clear (Normal) Urine-Color Yellow (Normal) pH 7.0 (Normal) Range: 5.0-7.5 Specific Alta 1.016 (Normal) Range: 1.005-1.030 :33 METABOLIC PANEL, COMPREHENSIVE Comments: PATIENT WAS FASTINGPERFORMED BY: [employer] Trpyke5192 [facility] [id number] (14752) ALT (SGPT) 51 [iU]/L (Abnormal) Range: 0-32 [...] mg/dL (Abnormal) Range: 65-99 :33 LIPID PANEL (47110) Comments: PATIENT WAS FASTINGPERFORMED BY: [employer]70 [facility] [id number] LDL/HDL Ratio 3.8 {ratio_units} (Abnormal) Range: 0.0-3.2 [...] auto diff Comments: PATIENT WAS FASTINGPERFORMED BY: [employer] Spariv5362 [facility] [id number] Information: [id number]; [address] (52825) Immature Grans (Abs) 0.0 {x10E3/uL} (Normal) Range: [...] (Normal) Range: 3.4-10.8 :48 HgA1C , Office (61111) HgA1C , Office 6.3 % (Normal) Range: 4.6 - 7.1 :59 METABOLIC PANEL, COMPREHENSIVE Comments: PATIENT WAS FASTINGPERFORMED BY: LabCoLourdes Medical Center of Burlington CountyKybwzm9719 [facility] [id number] (50454) ALT (SGPT) 44 [iU]/L (Abnormal) Range: 0-32 [...] mg/dL (Abnormal) Range: 65-99 :59 LIPID PANEL (33999) Comments: PATIENT WAS FASTINGPERFORMED BY: [facility]Psych[facility] [id number] LDL/HDL Ratio 4.1 {ratio_units} (Abnormal) Range: 0.0-3.2 [...] auto diff Comments: PATIENT WAS FASTINGPERFORMED BY: [employer] [facility] [id number] Information: [id number] (55930) Immature Grans (Abs) 0.0 {x10E3/uL} (Normal) Range: [...] {x10E3/uL} (Normal) Range: 3.4-10.8 :55 Urinalysis, Office (85547) UA - LEUKOCYTE ESTERASE Small (Normal) UA - NITRITE Negative (Normal) URINE UROBILINGN SILVESTRE TIMED Normal mg/dL (Normal) UA - PROTEIN Negative mg/dL (Normal) UA - PH 7 (Normal) UA - BLOOD Negative (Normal) UA - SPECIFIC GRAVITY 1.010 (Normal) UA - KETONES Negative mg/dL (Normal) UA - BILIRUBIN Negative (Normal) UA - GLUCOSE Negative (Normal) :45 CBC W/Diff, Automated Comments: Test performed at:[facility] Eonnzrkbxp[address] [place], [place] [id number] Absolute Lymph 2.36 {X10_3/ul} (Normal) Range: 0.83-4.51 [...] 4.2-5.4 WBC 13.0 K/mm3 (Abnormal) Range: 4.4-11.0 70-Zlh-57663:45 Comprehensive Metabolic Profil Comments: Test performed at:[facility] Qlleplumvk99[address] [place] [address] GAP 5 (Normal) Range: 5-15 CO2 27.0 [...] Comments: Please note revised CREATININE reference range ivjlevuao60/22/2015. BUN 15 mg/dL (Normal) Range: 7-18 GLU 134 mg/dL (Abnormal) Range: 70-110 Comments: Fasting Glucose result greater than or equal to 126 mg/dLsuggests DIABETES MELLITUS per A.D.A. criteria. :45 Lipase Comments: Test performed at:[facility] T[address] [place] [address] LIPASE 215 U/L (Normal) Range: 73-393 :32 Urinalysis, Complete Comments: Order Date: 12/16/14How was Urine Obtained? CLEAN CATCHTest performed at:[facility] [address] [place], [place] [address] MUCUS, URINE 0 SEEN {/hpf} (Normal) BACTERIA [...] Panel, Comprehensive Comments: PATIENT NOT FASTINGPERFORMED BY: INETCO Systems LimitedLourdes Medical Center of Burlington CountyRjwkqs3138 [facility] [id number] (02885) ALT (SGPT) 44 [iU]/L (Abnormal) Range: 0-32 [...] Auto Diff Comments: PATIENT NOT FASTINGPERFORMED BY: AteoMclaren Lapeer Region6370 [facility] [id number] Information: [id number] (45318) Immature Grans (Abs) 0.0 {x10E3/uL} (Normal) Range: [...] {x10E3/uL} (Normal) Range: 3.4-10.8 :05 Rapid Flu (21843 x 2) Comments: pos A Influenza A Ag positive A (Normal) :55 HICUN-TNXYYEYUIYW-PSXFX (49460) Comments: today; PATIENT NOT FASTINGPERFORMED BY: LabCoLourdes Medical Center of Burlington CountyBozqcl9639 [facility] [id number] AFP, Serum, Tumor Marker 5.4 ng/mL (Normal) Range: 0.0-8.3 Comments: Santiago ECLIA methodology :55 HEPATITIS PANEL (74136) Comments: today; PATIENT NOT FASTINGPERFORMED BY: [facility]6370 [facility] [id number] Information: [id number] Hep C Virus Ab <0.1 {s/co_ratio} (Normal) Range: 0.0-0.9 Comments: Negative: < 0.8 Indeterminate: 0.8 - 0.9 Positive: > 0.9 . In order to reduce the incidence of a false positive result, the [facility] recommends that all s/co ratios between 1.0 and 10.9 be confirmed by a more specific supplemental or PCR testing. [facility] offers HCV Ab w/Reflex to Verification test #300126. Hep B Core Ab, IgM Negative (Normal) HBsAg Screen Negative (Normal) Hep A Ab, IgM Negative (Normal) :21 HEPATIC FUNCTION PANEL Comments: repeat in 6 weeks around ; PATIENT NOT FASTINGPERFORMED BY: [facility]6370 [facility] [id number] Information: [id number] (62209) ALT (SGPT) 38 [iU]/L (Abnormal) Range: 0-32 AST (SGOT) 28 [iU]/L (Normal) Range: 0-40 Alkaline Phosphatase, S 124 [iU]/L (Abnormal) Range: 39-117 Bilirubin, Direct 0.15 mg/dL (Normal) Range: 0.00-0.40 Bilirubin, Total 0.6 mg/dL (Normal) Range: 0.0-1.2 Albumin, Serum 4.2 g/dL (Normal) Range: 3.5-4.8 Protein, Total, Serum 6.5 g/dL (Normal) Range: 6.0-8.5 66-Mqp-400943:09 Microscopic Examination Comments: PATIENT WAS FASTINGPERFORMED BY: [facility]6370 [facility] [id number] Bacteria Few (Normal) Epithelial Cells (non renal) 0-10 {/hpf} (Normal) Range: 0 - 10 RBC 0-2 {/hpf} (Normal) Range: 0 - 2 WBC 11-30 {/hpf} (Abnormal) Range: 0 - 5 38-Fik-298379:50 HgA1C , Office (44733) HgA1C , Office 5.8 % (Normal) Range: 4.6 - 7.1 :09 URINALYSIS, W/ MICRO (51668) Comments: PATIENT WAS FASTINGPERFORMED BY: INETCO Systems LimitedLourdes Medical Center of Burlington CountyLxpyjn7140 [facility] [id number] Microscopic Examination See below: (Normal) Comments: Microscopic was indicated and was performed. Nitrite, Urine Negative (Normal) Urobilinogen,Semi-Qn 0.2 mg/dL (Normal) Range: 0.0-1.9 Bilirubin Negative (Normal) Occult Blood Negative (Normal) Ketones Negative (Normal) Glucose Negative (Normal) Protein Negative (Normal) WBC Esterase 3+ (Abnormal) Appearance Clear (Normal) Urine-Color Yellow (Normal) pH 7.0 (Normal) Range: 5.0-7.5 Specific Alta 1.014 (Normal) Range: 1.005-1.030 :09 METABOLIC PANEL, COMPREHENSIVE Comments: PATIENT WAS FASTINGPERFORMED BY: INETCO Systems LimitedLourdes Medical Center of Burlington CountyWkkxib0629 [facility] [id number] (02897) ALT (SGPT) 41 [iU]/L (Abnormal) Range: 0-32 [...] to prolonged exposure of serum to cells. 18-Qjf-134515:09 LIPID PANEL (16242) Comments: PATIENT WAS FASTINGPERFORMED BY: Nefsis6370 [facility] [id number] VLDL Cholesterol Kelsi VLDLCH mg/dL (Normal) Range: [...] Cholesterol, Total 233 mg/dL (Abnormal) Range: 100-199 47-Qtg-464118:09 CBC W/AUTO DIFF WBC Comments: PATIENT WAS FASTINGPERFORMED BY: Nefsis6370 [facility] [id number] Information: [id number] (27470) Immature Grans (Abs) 0.0 {x10E3/uL} (Normal) Range: [...] CREATININE RATIO Comments: PATIENT WAS FASTINGPERFORMED BY: [employer] [facility] [id number] (12628) AND (13166) Microalb/Creat Ratio 2.7 {mg/g_creat} (Normal) Range: 0.0-30.0 Microalbumin, Urine 1.5 ug/mL (Normal) Range: 0.0-17.0 Creatinine, Urine 54.8 mg/dL (Normal) Range: 15.0-278.0 :39 METABOLIC PANEL, COMPREHENSIVE Comments: PATIENT WAS FASTINGPERFORMED BY: [employer] [facility] [id number] (30141) ALT (SGPT) 41 [iU]/L (Abnormal) Range: 0-32 [...] mg/dL (Abnormal) Range: 65-99 :39 LIPID PANEL (42251) Comments: PATIENT WAS FASTINGPERFORMED BY: [employer]70 [facility] [id number] VLDL Cholesterol Kelsi VLDLCH mg/dL (Normal) Range: [...] MANUAL DIFF Comments: PATIENT WAS FASTINGPERFORMED BY: [employer] [facility] [id number] Information: [id number] (35410) Immature Grans (Abs) 0.0 {x10E3/uL} (Normal) Range: [...] in 8 weeks; PATIENT WAS FASTINGPERFORMED BY: LabCoLourdes Medical Center of Burlington CountyUoftqc6356 [facility] [id number] (34282) Bilirubin, Direct 0.12 mg/dL (Normal) Range: 0.00-0.40 :35 Blood Glucose , Office (52959) Blood Glucose , Office 161 (Normal) 33-Sym-838468:35 HgA1C , Office (50701) HgA1C , Office 5.6 % (Normal) Range: 4.6 - 7.1 :36 TSH (80810) Comments: Forward to Dr Avery Cobb, [phone]; PATIENT WAS FASTINGPERFORMED BY: LabCo Iogqaf3986 [facility] [id number] TSH 2.620 {uIU/mL} (Normal) Range: 0.450-4.500 :36 CBC with manual diff Comments: Forward to Dr Avery Cobb, [place] [phone]; PATIENT WAS FASTINGPERFORMED BY: [facility] Aoxhcp1590 [facility] [id number] Informat ion: [id number] (88725) Immature Grans (Abs) 0.0 {x10E3/uL} (Normal) Range: [...] Comprehensive Comments: Forward to Dr Avery Cobb, [place], [phone]; PATIENT WAS FASTINGPERFORMED BY: [facility]Psych[facility] [id number] (43444) ALT (SGPT) 33 [iU]/L (Abnormal) Range: 0-32 [...] Glucose, Serum 119 mg/dL (Abnormal) Range: 65-99 2-Vfs-950644:29 URINE RASHAD CULTURE-SILVESTRE COL Comments: PATIENT NOT FASTINGPERFORMED BY: SenstoreDublin [place] [id number] Information: SRC:UR [id number] COUNT (79435) Result 1 ENTEAE (Normal) Comments: Enterobacter aerogenes1,000 Colonies/mL S = Susceptible; I = Intermediate; R = Resistant P = Positive; N = Negative MICS are expressed in micrograms per mL A ntibiotic RSLT#1 RSLT#2 RSLT#3 RSLT#4Amoxicillin/Clavulanic Acid RCefazolin RCefepime SCeftriaxone SCefuroxime SCephalothin RCiprofloxacin SErtapenem SGentamicin SImipenem SLevofloxacin SNitrofurantoin RPiperacillin STetracycline STobramycin STrimethoprim/Sulfa S Urine Final report (Normal) Culture,Comprehensiv e 4-Mma-811219:14 Urinalysis, Office (35342) UA - LEUKOCYTE ESTERASE Large (Normal) UA - NITRITE Negative (Normal) URINE UROBILINGN SILVESTRE TIMED Normal mg/dL (Normal) UA - PROTEIN Negative mg/dL (Normal) UA - PH 7 (Normal) UA - BLOOD Hemolyzed Small (Normal) UA - SPECIFIC GRAVITY 1.015 (Normal) UA - KETONES Negative mg/dL (Normal) UA - BILIRUBIN Negative (Normal) UA - GLUCOSE Negative (Normal) 64-Thq-121277:22 URINE RASHAD CULTURE-SILVESTRE COL Comments: PATIENT NOT FASTINGPERFORMED BY: [facility] Qpvvxm6292 [facility] [id number] Information: SRC:UR [id number] COUNT (13614) Antimicrobial MIHEAD (Normal) Comments: S = Susceptible; [...] mL (Normal) Urine Final report Culture,Comprehensive (Normal) 47-Dmo-189890:24 Urinalysis, Office (80050) UA - BILIRUBIN Negative (Normal) UA - BLOOD Negative (Normal) UA - GLUCOSE Negative (Normal) UA - KETONES Negative mg/dL (Normal) UA - LEUKOCYTE ESTERASE Trace (Normal) UA - NITRITE Negative (Normal) UA - PH 7.0 (Normal) UA - PROTEIN Negative mg/dL (Normal) UA - SPECIFIC GRAVITY 1.015 (Normal) URINE UROBILINGN SILVESTRE TIMED 2 mg/dL (Normal) 46-Hhg-65653:28 Metabolic Panel, Basic Comments: PATIENT NOT FASTINGPERFORMED BY: [employer] [facility] [id number] Information: [id number] (28210) Calcium, Serum 10.1 mg/dL (Normal) Range: 8.6-10.2 [...] Glucose, Serum 94 mg/dL (Normal) Range: 65-99 70-Ado-63475:57 MAGNESIUM (70991) Comments: PATIENT NOT FASTINGPERFORMED BY: AteoCo Glxyzb5448 [facility] [id number] Magnesium, Serum 1.9 mg/dL (Normal) Range: 1.6-2.6 14-Tgg-66723:57 Metabolic Panel, Basic Comments: PATIENT NOT FASTINGPERFORMED BY: [employer]oCo Ngxnom6543 [facility] [id number] Information: ADD [id number] AND DRAW FEE 99 5369 (48881) Calcium, Serum 9.9 mg/dL (Normal) Range: 8.6-10.2 [...] function Panel Comments: PATIENT NOT FASTINGPERFORMED BY: LabCoLourdes Medical Center of Burlington CountyPjqata8646 [facility] [id number] Information: [id number] (33659) Albumin, Serum 4.1 g/dL (Normal) Range: 3.5-4.8 [...] 101 mg/dL (Abnormal) Range: 65-99 :12 Magnesium (59718) Comments: PATIENT NOT FASTINGPERFORMED BY: LabCoLourdes Medical Center of Burlington CountyBobkly34[address] [place] [id number] Magnesium, Serum 1.7 mg/dL (Normal) Range: 1.6-2.6 42-Tlq-786598:08 KNEE 4 OR MORE VIEWS Radiology See [...] Alvares M.D.December 05, 2012 at 11:41:24 AM [id number] Signed GP/GP If you are the referring physician and would like to consult with th eradiologist who provided this interpretation, please contact Maurilio Mliler at [phone]. If this radiologist is unavailable, youwill be directed to another radiologist to assist. If you ar e a patient with a question regarding this report, pleasecontactyour referring physician directly. Professional Interpretation Provided By: [employer], Phone , These docum ents contain legally [...] 12/05/12 1459 Sign by: Archie Alvares MD 94-Yfk-55259:20 RENAL FUNCTION PANEL Comments: PATIENT NOT FASTINGPERFORMED BY: LabCoLourdes Medical Center of Burlington CountyOnkwtx2851 [facility] [id number] Information: [id number] (62540) Albumin, Serum 4.5 g/dL (Normal) Range: 3.5-4.8 [...] Glucose, Serum 131 mg/dL (Abnormal) Range: 65-99 12-Wfp-928766:58 Nuclear Stress Test Radiology Report See Note [...] 12/02/12 1640 Sign by: Brennan Fleming MD 35-Tda-339224:24 Metabolic Panel, Basic Comments: PATIENT NOT FASTINGPERFORMED BY: LabMclaren [facility] Region6370 [facility] [id number] Information: [id number] (62808) Calcium, Serum 9.6 mg/dL (Normal) Range: 8.6-10.2 [...] Glucose, Serum 96 mg/dL (Normal) Range: 65-99 22-Fqy-445809:24 MAGNESIUM (82327) Comments: PATIENT NOT FASTINGPERFORMED BY: LabCoLourdes Medical Center of Burlington CountyEgkrya1083 [facility] [id number] Magnesium, Serum 2.1 mg/dL (Normal) Range: 1.6-2.6 [...] <0.05 NEGATIVE0.06 - 0.59 AT RISK OF PA> OR = 0.60 SUGGEST PA :23 TSH 1.27 {uIU/mL} (Normal) Range: 0.358-3.74 [...] Alvares M.D.June 08, 2012 at 2:30:29 PM [id number] Signed GP/GP If you are the referring physician and would like to consult with theradiologist who pro vided this interpretation, please contact Maurilio Miller at [phone]. If this radiologist is unavailable, youwill be directed to another radiologist to assist. If you are a patient with a q uestion regarding this report, pleasecontactyour referring physician directly. Professional Interpretation Provided By: [employer], Phone , These documents contain legally protected [...] 06/08/12 1437 Sign by: Archie Alvares MD 83-Jjl-27393:57 LIPID PANEL (08307) Comments: PATIENT WAS FASTINGPERFORMED BY: ILIR [facility] Iqjmun5445 [address] [place] [id number] Information: [id number] VLDL Cholesterol Kelsi VLDLCH mg/dL (Normal) Range: [...] Cholesterol, Total 227 mg/dL (Abnormal) Range: 100-199 25-Mlc-842344:05 WRIST,MIN 3 VIEWS Radiology Report See Note [...] radiologist regarding this report, please call our [id number] line @ [phone] Dictated on 09/29/11 1133 by Franklyn Sykes DOribed on 10/01/11 1001 by ITS IMPORTSign by Moses Sykes DO on 10/01/11 1002 Sign by: Moses Sykes DO :47 MICROALBUMIN: CREATININE RATIO Comments: PATIENT WAS FASTINGPERFORMED BY: INETCO Systems LimitedPeak Behavioral Health ServicesCvmowi6033 [facility] [id number] (75927) AND (74433) Microalb/Creat Ratio 2.6 {mg/g_creat} (Normal) Range: 0.0-30.0 Microalbumin, Urine 3.0 ug/mL (Normal) Range: 0.0-17.0 Creatinine, Urine 115.1 mg/dL (Normal) Range: 15.0-278.0 92-Vrs-281167:47 METABOLIC PANEL, COMPREHENSIVE Comments: PATIENT WAS FASTINGPERFORMED BY: [employer] LabCoJobviteQjfleb7967 [facility] [id number] (34877) ALT (SGPT) 46 [iU]/L (Abnormal) Range: 0-40 [...] mg/dL (Abnormal) Range: 65-99 :47 LIPID PANEL (51544) Comments: PATIENT WAS FASTINGPERFORMED BY: [employer]70 [facility] [id number] VLDL Cholesterol Kelsi VLDLCH mg/dL (Normal) Range: [...] MANUAL DIFF Comments: PATIENT WAS FASTINGPERFORMED BY: [employer]psByTips6370 [facility] [id number] Information: [id number] (45266) Immature Grans (Abs) 0.0 {x10E3/uL} (Normal) Range: [...] change WBC 5.6 {x10E3/uL} (Normal) Range: 4.0-10.5 99-Uqm-190622:01 BILAT SCRN DIGITAL & CAD Radiology Report [...] radiologist regarding this report, please call our 25D4gorqatg line @ Dictated on 05/19/11 1229 by Nicki NUNEZ,Annyranscribed on 05/19/11 140 by ITS IMPORTSign by Archie Alvares MD on 05/19/11 140 Sign by: Archie Alvares MD 04-Gwg-951092:11 LIPID PANEL (36244) Comments: now and in six months (approximately); PERFORMED BY: [facility]SpaceCataw[facility] [id number] HDL Cholesterol 32 mg/dL (Abnormal) Comments: According [...] Comments: in six months (approximately); PERFORMED BY: Nefsis6370 [facility] [id number] (14653) ALT (SGPT) 57 [iU]/L (Abnormal) Range: 0-40 [...] Glucose, Serum 102 mg/dL (Abnormal) Range: 65-99 7-Fog-838078:51 CHEST, PA AND LATERAL Radiology Report See [...] MD on 07/21/101935 Sign by: Nicki NUNEZ,Archie 7-Ifj-500179:14 Urinalysis, Office (59332) UA - BILIRUBIN Negative (Normal) UA - [...] mg/dL suggests DIABETES MELLITUS per A.D.A. criteria. 6-Ruz-226599:48 CULTURE, URINE URINE CULTURE See Note {CFU/mL} [...] <=16 S TRIMETHOPRIM/SULFAMETHOXAZO $ >=320 R EB-VCA LdS63972 < 0.2 {AI} Range: 0.0-0.8 :48 (Normal) Comments: Negative <0.9 Equivocal 0.9 - 1.0 Positive >1.0Performed at: [facility] [address] [id number] Director: Mara Wilson MD, Phone: [phone] :48 ESR SED RATE 113 mm/h (Abnormal) Range: 0-30 :48 HEP-ABC 649453 HB CORE RD22623 SeeNote (Normal) Comments: Result: Negative HEBSAB 6395 [...] Comments: PATIENT NOT FASTINGPERFORMED BY: ILIR [facility] Bgyrwv68[address] [place] [id number] Information: SRC:UR [id number] COUNT (80490) Antimicrobial MIHEAD (Normal) Comments: S = Susceptible; [...] 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 Despite apparent in vitro susceptibility topenicillins and cephalospor (Normal) ins, this organism may be clinicallyresistant to therapy with these agents and, per the CLSI (formerlyKYCLS), we have changed their results to indicate this. Urine Final report (Normal) Culture,Comprehensive 1-Qlt-550136:44 Urinalysis, Office (73511) UA - BILIRUBIN Negative (Normal) UA - [...] on 05/22/10 1538 Sign by: JOVANY ARAMBULA 05-Pkd-698344:24 Influenza A, H1N1, RT PCR Comments: PERFORMED BY: [address] [id number] BY: [address] [address] [id number] Information: SRC:NL Subtype Novel H1N1 by Negative (Normal) PCR Type Influenza A by Negative (Normal) PCR Viral FLUABN (Normal) Comments: PERFORMED BY: [address] [id number] BY: [address] [id number] Culture,Rapid,Influenz Comments: Negative:No Influenza A or B detected. a 27-Fgu-753294:25 Influenza A Ag (80585) Influenza A Ag negative (Normal) 81-Oyn-847378:55 Urinalysis, Office (14281) UA - BILIRUBIN Negative (Normal) UA - BLOOD Negative (Normal) UA - GLUCOSE Trace (Normal) Comments: 100mg UA - KETONES Negative mg/dL (Normal) UA - LEUKOCYTE ESTERASE Small (Normal) UA - NITRITE Negative (Normal) UA - PH 7.0 (Normal) UA - PROTEIN Negative mg/dL (Normal) UA - SPECIFIC GRAVITY 1.015 (Normal) URINE UROBILINGN SILVESTRE TIMED 2 mg/dL (Normal) 4-Mbw-044102:04 CBC with manual diff Comments: PATIENT NOT FASTINGPERFORMED BY: [address] [id number] Information: [id number] (30555) Immature Grans (Abs) 0.0 {x10E3/uL} (Normal) Range: [...] 3.80-5.10 WBC 6.4 {x10E3/uL} (Normal) Range: 4.0-10.5 2-Gxi-260516:04 Metabolic Panel, Comprehensive Comments: PATIENT NOT FASTINGPERFORMED BY: [facility] Xlrcen7227 [facility] [id number] ([id number]) ALT (SGPT) 78 [iU]/L (Abnormal) Range: 0-40 [...] Glucose, Serum 105 mg/dL (Abnormal) Range: 65-99 74-Kwx-096271:07 BRAIN/HEAD WITHOUT CONTRAST Radiology Report See Note (Normal) Comments: CLINICAL:Female, 69 years old. Headache started last night. Fever/cold symptoms. CT BRAIN WITHOUT CONTRAST TECHNIQUE:Transaxial CT imaging of the brain was performed without administrationofintravenous contrast material. COMPARISON:None. FINDINGS:Normal size of the ventricles and extra-axial spaces for the patient'massimo.Normal white matter tracts of the supratentorial brain. Normal basal ganglia. Melisas l bilateral thalami. There is no demonstrated [...] on 03/11/10 0859 Sign by: JOVANY ARAMBULA 79-Ndp-11924:00 CHEST, PA AND LATERAL Radiology Report See [...] on 03/12/10 0638 Sign by: BERTO STYLES 08-Rcy-74855:00 RIBS UNIL 2V NO CXR Radiology Report [...] on 03/12/10 0638 Sign by: BERTO STYLES 4-Xdz-726532:04 Lower Respiratory Culture Comments: PERFORMED BY: [facility] Rijrea2902 [facility] [id number] Information: SRC:SP Result 1 RRF (Normal) Comments: Routine respiratory ermelinda Lower Respiratory Culture Final report (Normal) 06-Fsq-828772:29 ETH TISS P-ETH (Normal) Comments: OPERATIONSeptoplasty, bilateral [...] / SJ:wili 09/10/09 TC:3REPORT SIGNED: SCOOTER SNYDER 09/12/0929-Aug-200920-Ggg-117715:05 BMP BUN/CRE 20.0 {RATIO} (Normal) Range: 10-20 [...] 126 mg/dLsuggests DIABETES MELLITUS per A.D.A. criteria. 14-Gpg-990184:05 CBC MPV 7.1 fL (Normal) Range: 6.5-12.0 [...] CREATININE RATIO Comments: PATIENT WAS FASTINGPERFORMED BY: [facility]CoL[facility]lington CountyJtmeqp2587 [facility] [id number] ([id number]) AND (17018) Microalb/Creat Ratio 3.2 {mg/g_creat} (Normal) Range: 0.0-30.0 Creatinine, Urine 37.1 mg/dL (Normal) Range: 15.0-278.0 Microalbumin, Urine 1.2 ug/mL (Normal) Range: 0.0-17.0 7-Okj-460180:33 METABOLIC PANEL, COMPREHENSIVE Comments: PATIENT WAS FASTINGPERFORMED BY: LabGenieDB6370 [facility] [id number] ([id number]) ALT (SGPT) 33 [iU]/L (Normal) Range: 0-40 [...] mg/dL (Abnormal) Range: 65-99 :33 LIPID PANEL (96281) Comments: PATIENT WAS FASTINGPERFORMED BY: LabCoJobviteMvagse5118 [facility] [id number] LDL Cholesterol Calc 142 mg/dL (Abnormal) Range: 0-99 LDL/HDL Ratio 3.5 {ratio_units} (Abnormal) Range: 0.0-3.2 VLDL Cholesterol Kelsi 57 mg/dL (Abnormal) Range: 5-40 Cholesterol, Total 240 mg/dL (Abnormal) Range: 100-199 HDL Cholesterol 41 mg/dL (Normal) Comments: According to ATP-III Guidelines, HDL-C >59 mg/dL is considered anegative risk factor for CHD. Triglycerides 284 mg/dL (Abnormal) Range: 0-149 3-Qil-799994:33 CBC WITH MANUAL DIFF Comments: PATIENT WAS FASTINGPERFORMED BY: [facility]CoL[facility] Bur[facility] CountyFzogiw4468 [facility] [id number] Information: [id number] ([id number]) Baso (Absolute) 0.0 {x10E3/uL} (Normal) Range: 0.0-0.2 [...] Report See Note (Normal) Comments: Exam Number: [id number] CT SCAN OF THE THORAX Multiple axial [...] left upper lobe. Reported By: ARCHIE ALVARES 96-Jwp-584591:05 PPD (57630) Comments: Lot #[id number]-left forearmDose0.1 mlgiven by:[facility]; negative :18 TSH (90792) Comments: PATIENT WAS FASTINGPERFORMED BY: [facility]CoL[facility] Bur[facility] CountyRwfist0887 [facility] [id number] TSH 1.234 {uIU/mL} (Normal) Range: 0.450-4.500 :18 METABOLIC PANEL, COMPREHENSIVE Comments: PATIENT WAS FASTINGPERFORMED BY: LabIssuuLourdes Medical Center of Burlington CountySfofar4664 [facility] [id number] ([id number]) A/G Ratio 1.4 (Normal) Range: 1.1-2.5 Albumin, [...] Serum 117 mg/dL (Abnormal) Range: 65-99 If -Albanian >59 mL/min/1.73 Comments: Note: Persistent reduction for [...] Sodium, Serum 141 mmol/L (Normal) Range: 135-145 60-Qwq-86728:18 LIPID PANEL (05828) Comments: PATIENT WAS FASTINGPERFORMED BY: [facility] Dssjit7419 [facility] [id number] Cholesterol, Total 206 mg/dL (Abnormal) Range: 100-199 [...] Range: 5-40 :18 CBC WITH MANUAL DIFF (04159) Comments: PATIENT WAS FASTINGClinical Information: ADD DRAW FEE [id number] ADD J 61572 PERFORMED BY: ILIR [facility] Bxnslo2761 [facility] [id number] Baso (Absolute) 0.0 {x10E3/uL} (Normal) Range: 0.0-0.2 [...] 11.7-15.0 WBC 4.1 {x10E3/uL} (Normal) Range: 4.0-10.5 68-Azc-511100:2 ANAEROBIC CULT See Note (Normal) Comments: No [...] T PROT 7.7 g/dL (Normal) Range: 6.4-8.2 58-Jzm-004890:10 MAMM, BILAT SCRN DIGITAL & CAD Radiology Report See Note (Normal) Comments: Exam Number: [id number] MAMMOGRAPHY, BILATERAL SCREENING DIGITAL AND CAD HISTORYRoutine [...] werealso examined with computer-aided detection software (Imagechecker, [employer] Reported By: JOVANY ARAMBULA M.D. 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 Indication: Afib Knee pain, right : [...] (KF) Indication: Well woman exam Planned Observations MICROALBUMIN: CREATININE RATIO (29668) AND (55448)Indication: Hypertensive left ventricular hypertrophy On: 1-Aow-578456:42 Request URINALYSIS (94630)Indication: Hypertensive left ventricular hypertrophy On: :42 Request CBC WITH MANUAL DIFF (69012)Indication: Hypertensive left ventricular hypertrophy On: 6-Ecb-897078:42 Request Metabolic Panel, Comprehensive (80594)Indication: Hypertensive left ventricular hypertrophy On: 0-Jwr-549657:42 Request Ferritin (87575)Indication: Elevated LFTs On: 35-Dra-64234:05 Request HEPATIC FUNCTION PANEL (04913)Indication: Elevated LFTs On: :04 Request XKIGF-TBVZBCPNVUL-KQVUY (06033)Indication: Elevated LFTs On: :04 Request METABOLIC PANEL, COMPREHENSIVE (82190)Indication: Hypercholesteremia On: :41 Request LIPOPROTEIN, BLD, BY NMR (05724)Indication: Hypercholesteremia On: :41 Request Metabolic Panel, Basic (62978)Indication: Abdominal pain On: :25 Request CBC, Platelets & Auto Diff (76621)Indication: Abdominal pain On: :24 Request Sed Rate Erythrocyte (18414)Indication: Abdominal pain On: :16 Request URINE RASHAD CULTURE-IDENTIFICATN (66459)Indication: Dysuria On: :35 Request MICROALBUMIN: CREATININE RATIO (17863) AND (89253)Indication: Hypertensive left ventricular hypertrophy On: : Request URINALYSIS (51246)Indication: Hypertensive left ventricular hypertrophy On: : Request CBC WITH MANUAL DIFF (53742)Indication: Hypertensive left ventricular hypertrophy On: : Request Metabolic Panel, Comprehensive (89160)Indication: Elevated LFTs On: : Request URINE RASHAD CULTURE-IDENTIFICATN (67601)Indication: Urinary tract infection, site not specified On: :09 Request URINALYSIS (17682)Indication: Urinary tract infection, site not specified On: :09 Request URINALYSIS (72812)Indication: Dysuria On: 08-Twj-821140:59 Request Homocysteine, Plasma (32196)Indication: MTHFR mutation On: :24 Request Comments: follow up with in six months (approximately) CBC with auto diff (75950)Indication: Hematoma of hip, right, initial encounter On: :57 Request HEPATIC FUNCTION PANEL (95204)Indication: Hypercholesteremia On: :37 Request Comments: 6 weeks HEPATITIS PANEL (87492)Indication: Elevated LFTs On: 45-Yoa-577720:30 Request URINALYSIS, W/ MICRO (71233)Indication: Hypertensive left ventricular hypertrophy On: :49 Request METABOLIC PANEL, COMPREHENSIVE (96596)Indication: Hypertensive left ventricular hypertrophy On: :49 Request LIPID PANEL (93062)Indication: Hypertensive left ventricular hypertrophy On: :49 Request CBC with auto diff (13777)Indication: Hypertensive left ventricular hypertrophy On: :49 Request HgA1C , Office (39845)Indication: Impaired fasting glucose On: 62-Jwu-08328:47 Request Lipid Panel (73517)Indication: Afib On: 37-Bwl-212154:21 Request Comments: copy to Dr. matthews Metabolic Panel, Basic (20311)Indication: Afib On: 50-Lbe-425788:20 Request HEPATIC FUNCTION PANEL (51169)Indication: Elevated LFTs On: 33-Loq-804403:20 Request Lipid Panel (82324)Indication: Hypercholesteremia On: 10-Nps-338321:20 Request METABOLIC PANEL, BASIC (24401)Indication: Hypokalemia On: 17-Feb-20139:10 Request Comments: pls send copy to Dr Young also METABOLIC PANEL, COMPREHENSIVE (73582)Indication: Palpitation On: 1-Rjm-789585:10 Request CBC WITH MANUAL DIFF (21714)Indication: Palpitation On: 9-Qpn-637684:10 Request TSH (56748)Indication: Palpitation On: 9-Fyt-188591:10 Request CREATINE KINASE TOTAL (27230)Indication: Abnormal EKG On: 1-Cmu-304324:10 Request CPK MB FRACTION (01740)Indication: Abnormal EKG On: 4-Hgl-112305:10 Request Troponin I (96591)Indication: Abnormal EKG On: 6-Amw-001338:10 Request LIPID PANEL (74744)Indication: Hypertensive left ventricular hypertrophy On: 08-Wmn-986783:43 Request Comments: in in six months (approximately) only. URINALYSIS, W/ MICRO (23936)Indication: Hematuria On: :43 Request CBC (Auto) (05928)Indication: Hypertensive left ventricular hypertrophy On: 97-Yap-329807:38 Request Metabolic Panel, Comprehensive (91497)Indication: Hypertensive left ventricular hypertrophy On: :37 Request URINE RASHAD CULTURE-IDENTIFICATN (22646)Indication: NEOP, BNG, RENAL PELVIS On: :37 Request COMPLEMENT, TOTAL (CH50) (67863)Indication: Rheumatoid arthritis On: :22 Request COMPLEMENT C4 (94035)Indication: Rheumatoid arthritis On: : Request COMPLEMENT C3 (97156)Indication: Rheumatoid arthritis On: : Request Potassium Serum (73546)Indication: Hypokalemia On: :21 Request Comments: re check on Wednesday05-24-10 please call results to Dr. Troncoso RHEUMATOID FACTOR-QUANT (02836) test code [id number]: Rheumatoid arthritis On: :20 Request Comments: add to labs already drawn please Magnesium (06915)Indication: Hypokalemia On: :19 Request HEPATITIS PANEL (12386)Indication: Elevated LFTs On: : Request EBV IGM ANTIBODY (43854)Indication: Elevated LFTs On: : Request RASHAD CULTURE-BLOOD (46141)Indication: Urinary tract infection, site not specified On: Request Amylase (40882)Indication: Abdominal pain, acute, generalized On: : Request Lipase (57509)Indication: Abdominal pain, acute, generalized On: : Request Sed Rate Erythrocyte (89119)Indication: Abdominal pain, acute, generalized On: : Request Metabolic Panel, Comprehensive (23409)Indication: Abdominal pain, acute, generalized On: : Request CBC with manual diff (30240)Indication: Abdominal pain, acute, generalized On: : Request Influenza A&B Viral Culture (93504)Indication: INFLUENZA W/MANIFESTATION NEC On: :48 Request Influenza A H1N1 PCR (67095)Indication: INFLUENZA W/MANIFESTATION NEC On: 52-Vcv-838594:48 Request Rapid Flu (55738 x 2)Indication: INFLUENZA W/MANIFESTATION NEC On: 43-Qnj-470508:48 Request METABOLIC PANEL, BASIC (86920)Indication: Hypokalemia On: 59-Blj-678158:20 Request CULTURE, SPUTUM (09216)Indication: Cough On: 24-Feb-20109:25 Request PPD (45669)Indication: Screening examination for pulmonary tuberculosis On: 63-Kyc-116968:05 Request Comments: Lot #[id number]/Site-left forearmDose0.1 mlgiven by:[facility] Potassium Serum (68119)Indication: Hypokalemia On: 47-Abc-136038:27 Request Comments: 2weeks Glucose, PP/2 Hour (36048)Indication: Impaired fasting glucose On: 73-Kue-148856:23 Request Comments: 75 gm Lipid Panel (42988)Indication: Hypercholesteremia On: 43-Bwo-134886:23 Request Comments: 4 months RASHAD CULTURE-OTHER (01177)Indication: Cellulitis and abscess of leg, except foot On: 40-Rhz-049444:16 Request Comments: nasal BACT CULTURE ANY-ANAEROBIC (89216)Indication: Cellulitis and abscess of leg, except foot On: 07-Tly-741446:16 Request Comments: nasal BACT CULTURE ANY-ANAEROBIC (62684)Indication: Cellulitis and abscess of leg, except foot On: 55-Rxe-799698:15 Request Comments: rt leg RASHAD CULTURE-OTHER (65004)Indication: Cellulitis and abscess of leg, except foot On: 77-Pcr-577181:15 Request Comments: Rt leg OCCULT BLOOD FECES SCREEN (60200)Indication: Well woman exam On: 06-Llx-116870:50 Request Comments: done in office Thin prep Pap (22493)Indication: Well woman exam On: 01-Abo-933634:50 Request URINALYSIS W/O MICRO (24689)Indication: Hypertension, benign On: 73-Fce-320487:49 Request CBC (Auto) (38974)Indication: Hypertension, benign On: 71-Rne-433726:49 Request Lipid Panel (17031)Indication: Hypertension, benign On: 44-Cbk-777127:49 Request Metabolic Panel, Comprehensive (88541)Indication: Hypertension, benign On: 99-Lyt-666599:49 Request Planned Encounters Medical; [facility] Exam (Doctor) - On: 15-Apr-2018 7:30 [facility] Diana Troncoso MD, MD, Dana M Planned Procedures TDAP VACCINE >7 IM (08233)By: On: 31-Aug-2017 Intent Diana Troncoso MD Comments: lot:[id number]:09/16/19rte:IM left deltoid dose:0.5mlgiven by:gosia Gonzáles LPN MD, Dana M DEXA SCAN AXIAL SKELETON On: 31-Aug-2017 Intent (89097)By: Diana Troncoso MD Comments: due 12-04 Diana Troncoso MD Aerosol Treatment (98270)By: On: 28-Apr-2017 Intent Katerine Campo DO Comments: no noise after aeorols inspir or exp Radiology - Chest- PA and On: 28-Apr-2017 Intent LatBy: Katerine Campo DO Spirometry (50801)By: Alber On: 28-Apr-2017 Katerine Villanueva DO Comments: normal SCREENING DIGITAL On: 19-Jan-2017 Intent TOMOSYNTHESIS OF BREAST (23975)By: Diana Troncoso MD, MD, Dana M Holter Monitor 24 hrsBy: On: 10-Nov-2016 Intent Diana Troncoso MD Comments: copy to [employer] and him to read. Diana NUNEZ Radiology [...] DO Comments: stat call results Aerosol Treatment (40593)By: On: 26-Jun-2016 Intent Marleni Kang DO Comments: with albuterol Holter Monitor 24 hrsBy: On: 21-May-2016 Intent Diana Troncoso MD, MD, Dana M EKG (26593)By: You On: 21-May-2016 Intent SAMI Comments: see scanned document of test done to see results reviewed today with patient Ultrasound - LiverBy: Petey On: 05-May-2016 Intent Diana NUNEZ MD, Dana M Kenalog Injection, 10 mgm On: 21-Apr-2016 Intent (J3301)By: Diana Troncoso MD, MD, Dana M Radiology - Lumbar SpineBy: On: 10-Feb-2016 Intent Diana Troncoso MD, MD, Dana M Radiology - Hip - LeftBy: On: 10-Feb-2016 Intent Diana Troncoso MD, MD, Dana M Flu Vaccine (Quadrivalent) On: 31-Jan-2016 Intent 68103Wx: Diana Troncoso MD Comments: Lot:[id number]:10/16/16Dose:0.5mLRoute:IMSite:L DltdGiven By:CHRISSIE signed Diana Troncoso MD MAMMOGRAM, SCREENING, BOTH On: 20-Jan-2016 Intent BREAST (07729)By: Diana Troncoso MD, MD, Dana M Flu Vaccine (Quadrivalent) On: 05-Feb-2015 Intent 45727Ev: Diana Troncoso MD Comments: Lot:[id number]:10/17/15Dose:0.5mLRoute:IMSite:L DltdGiven By:CHRISSIE signed Diana Troncoso MD IMMUNIZ ADMNIN, 1 VAC, On: 14-Jan-2015 Intent SNGL/COMBO (63780)By: Visit, Nurse ZOSTER VACC, CT (69262)By: On: 14-Jan-2015 Intent Diana Troncoso MD Comments: lot: [id number]: 09/02site/route: R arm/SQamt:0.5mLVIS signed when applicableONUR Ballard MD, Dana M ADMINISTRATION OF On: 07-Jan-2015 Intent PNEUMOCOCCAL VACCINE (G0009)By: Izabela Rehman BILATERAL MAMMOGRAMS On: 18-Dec-2014 Intent (97268)By: Diana Troncoso MD, MD, Dana M Solu -Medrol Injection, 125 On: 19-Nov-2014 Intent mg (J2930)By: Radha EDWARDS Kaitlin Aerosol Treatment (22746)By: On: 19-Nov-2014 Intent Radha EDWARDS Kaitlin Wax CurettesBy: Petey NUNEZ, On: 03-Jul-2014 Intent Diana Pena MD Ear Irrigation (25354)By: On: 03-Jul-2014 Intent Diana Troncoso MD Comments: IrrigationSite- R earAmount/Color/Quality - medium amount of soft, dark brown cerumen removed Toelrated well: yesCurette UsedONUR Ballard MD, Dana M Rocephin Injection, 2 Gram On: 03-Jul-2014 Intent (J0696)By: Diana Troncoso MD Comments: IMlot: [id number]: 12/18/16site/route: RGM and LGMamt: 2GVIS signed when applicableONUR Ballard MD, Dana M Solu -Medrol Injection, 125 On: 03-Jul-2014 Intent mg (J2930)By: Petey NUNEZ, Comments: lot: [id number]: si/route: LGM/IMamt: 2mLVIS signed when applicableONUR Ballard MD, Dana M ELECTROCARDIOGRAM, COMPLETE On: 03-Jul-2014 Intent (ECG) (48141)By: Diana Troncoso MD, MD, Dana M Radiology - ChestBy: Ciesa On: 02-Jul-2014 Intent GRACE, Kaitlin Aerosol Treatment (97696)By: On: 29-Jun-2014 Intent Ciparam EDWARDS Kaitlin Solu -Medrol Injection, 125 On: 13-Jun-2014 Intent mg (J2930)By: Radha EDWARDS Kaitlin Aerosol Treatment (83777)By: On: 13-Jun-2014 Intent Cieswillian EDWARDS Kaitlin Radiology - ChestBy: Ciesa On: 06-Jun-2014 Intent GRACE Kaitlin Aerosol Treatment (53410)By: On: 06-Jun-2014 Intent Nat Boyle LPN Radiology - Knee - RightBy: On: 09-Apr-2014 Intent Katerine Campo DO Sshmotjva-Qrs-Apies On: 09-Apr-2014 Intent (62106)By: Katerine Campo DO ADMINISTRATION OF INFLUENZA On: 12-Feb-2014 Intent VIRUS VACCINE (G0008)By: Comments: Lot #[id number]-L dltd, IMDose prefilled syringegiven by:QUINCY MeredithVIS and ABN signed Visit, Nurse FLU VAC, SPLIT, >3 YEARS, On: 12-Feb-2014 Intent INTRAMUSC (17247)By: Visit, Nurse Ultrasound - LiverBy: Radha On: 23-Jan-2014 Intent Jacquelyn EDWARDS Dlgyxybez-Dcp-Dzsyh On: 25-Sep-2013 Intent (72831)By: Jacquelyn Garcia CNP SPECIMEN HANDLING/TRANSPORT On: 21-Jun-2013 Intent (65028)By: Jacquelyn Garcia CNP Breast Screening - On: 20-Jun-2013 Intent BilateralBy: Petey NUNEZ, Diana Troncoso MD, Diana Nicole ADMINISTRATION OF INFLUENZA On: 08-May-2013 Intent VIRUS VACCINE (G0008)By: Nellie Hickey FLU VAC, SPLIT, >3 YEARS, On: 08-May-2013 Intent INTRAMUSC (23563)By: Petey Comments: lot [id number]/route L kely, IMamt 0.5mlVIS and ABN signed when applicableONUR Ballard MD, Diana Troncoso MD, Diana Nicole Aerosol Treatment (00857)By: On: 21-Apr-2013 Intent Jacquelyn Garcia CNP SPECIMEN HANDLING/TRANSPORT On: 16-Jan-2013 Intent (44251)By: Danisha Dawson LPN Venous Doppler - RightBy: On: 05-Dec-2012 Intent Jacquelyn Garcia CNP Radiology - Knee - RightBy: On: 05-Dec-2012 Intent Jacquelyn Garcia CNP Holter Moniter (12347)By: On: 24-Nov-2012 Intent Katerine Capmo DO Nuclear Stress Test/Stress On: 24-Nov-2012 Intent SPECT/TreadmillBy: Katerine Campo DO Echo CompleteBy: Alber , On: 24-Nov-2012 Intent Katerine EKG (56778)By: Ernesto, On: 24-Nov-2012 Intent Shayy GLOST TILE SHADER Comments: nsr mild st depression lateral precordial leads MAMMOGRAM, SCREENING, BOTH On: 17-May-2012 Intent BREASTS (14439)By: Diana Troncoso MD, MD, Dana M FLU VAC, SPLIT, >3 YEARS, On: 29-Mar-2012 Intent INTRAMUSC (75525)By: Ori, Comments: Lot:[id number]:6.30.13Dose:0.5mLRoute:IMSite:L DltdGiven By:CHRISSIE cJllian ADMINISTRATION OF INFLUENZA On: 29-Mar-2012 Intent VIRUS VACCINE (G0008)By: Izabela Rehman Radiology - Wrist - LeftBy: On: 29-Sep-2011 Intent Diana Troncoso MD, MD, Dana M Eprescribed prescriptions On: 29-Sep-2011 Intent (G8553)By: Diana Troncoso MD, MD, Dana M Aerosol Treatment (79388)By: On: 12-Jun-2011 Intent Jacquelyn Garcia CNP IMMUNIZ ADMNIN, 1 VAC, On: 03-Apr-2011 Intent SNGL/COMBO (91207)By: Diana Troncoso MD, MD, Dana M FLU VAC, SPLIT, >3 YEARS, On: 03-Apr-2011 Intent INTRAMUSC (15781)By: Diana Troncoso MD, MD, Dana M MAMMOGRAM, SCREENING, BOTH On: 03-Apr-2011 Intent BREASTS (70321)By: Diana Troncoso MD, MD, Dana M Radiology - ChestBy: Ciesa On: 21-Jul-2010 Intent Jacquelyn EDWARDS Pulse Oximetry (14900)By: On: 21-Jul-2010 Intent Jacquelyn Garcia CNP Aerosol Treatment (76670)By: On: 21-Jul-2010 Intent Jacquelyn Garcia CNP CT - Abdomen & PelvisBy: On: 22-May-2010 Intent Diana Troncoso MD Comments: wet read Dr. petey NUNEZ, Diana Nicole Aerosol Treatment (75418)By: On: 10-Mar-2010 Intent Katerine Campo DO Comments: less noise adn more air exchg after aerosol -- still some wheezing and harsh noise Spirometry (30693)By: Alber On: 10-Mar-2010 Intent Katerine SANCHEZ Comments: mild obstruction - with FEV 1 of 83% Solu- Medrol Injection, 125mg On: 10-Mar-2010 Intent (J2930)By: Alber SANCHEZ, Comments: 2ml given im in lt hip [id number] exp 10-18-[address] - Brain/HeadBy: Alber SANCHEZ, On: 10-Mar-2010 Intent Katerine Pulse Oximetry (18230)By: On: 10-Mar-2010 Intent Katerine Campo DO Dianeimic-Jeu-Yfcal On: 10-Mar-2010 Intent (76566)By: Katerine Campo DO Radiology - ChestBy: Alber On: 10-Mar-2010 Intent Katerine SANCHEZ Solu -Medrol Injection, 125 On: 07-Mar-2010 Intent mg (J2930)By: Radha EDWARDS, Comments: Lot #[id number]/12Site-L hip PQAcgg0jzjfzwe by:SHIRA Bean Aerosol Treatment (78551)By: On: 07-Mar-2010 Intent Jacquelyn Garcia CNP Pulse Oximetry (15038)By: On: 24-Feb-2010 Intent Jacquelyn Garcia CNP Inhaler Demonstration On: 24-Feb-2010 Intent (38446)By: Jacquelyn Garcia CNP Aerosol Treatment (70418)By: On: 24-Feb-2010 Intent Jacquelyn Garcia CNP ADMINISTRATION OF INFLUENZA On: 03-Feb-2010 Intent VIRUS VACCINE (G0008)By: Kanu Comments: Lot #[id number] 4PExp- 4/11Site- L Dltd/IMDose 0.5mlgiven by: QUINCY SILVA LPN, Eduardo L FLU VAC, SPLIT, >3 YEARS, On: 03-Feb-2010 Intent INTRAMUSC (93772)By: Kanu BASURTON, Eduardo L FLU VAC, SPLIT, >3 YEARS, On: 31-Jan-2010 Intent INTRAMUSC (86528)By: Augusto RN, Comments: injection given in left deltoid,see scanned document/ Danita IMMUNIZ ADMNIN, 1 VAC, On: 31-Jan-2010 Intent SNGL/COMBO (41666)By: Augusto CLEMENTS, Danita MAMMOGRAM, SCREENING, BOTH On: 25-Jul-2009 Intent BREASTS (19043)By: Petey NUNEZ, Diana Troncoso MD, Diana Nicole Pulse Oximetry (16756)By: On: 28-Mar-2009 Intent YouNADINESAMI Flu Vaccine, Split IM On: 11-Jan-2009 Intent (46933)By: Rani FERNANDEZ, Comments: Lot #[id number] 4PExp-08/2009Site-Left deltoidgiven by:FLIP Kruger CurettesBy: Ciesa FIELD MACHINIST, On: 02-Jul-2008 Intent Kaitlin Ear Irrigation (86865)By: On: 02-Jul-2008 Intent Ciesa FIELD MACHINIST, Kaitlin Aerosol Treatment (21275)By: On: 02-Jul-2008 Intent Ciesa FIELD MACHINIST, Kaitlin Bio Z (31764)By: Petey NUNEZ, On: 04-May-2008 Intent Diana Troncoso MD, Diana Nicole EKG (92231)By: Petey NUNEZ, On: 04-May-2008 Intent Diana Pena MD Holter Moniter (04861)By: On: 04-May-2008 Intent Petey NUNEZ, Diana Troncoso MD, Diana Nicole Nuclear Stress Test/Stress On: 04-May-2008 Intent SPECT/AdenosineBy: Petey NUNEZ, Diana Troncoso MD, Diana Nicole Echo CompleteBy: Petey NUNEZ, On: 04-May-2008 Intent Diana Pena MD Cartoid DopplerBy: Petey On: 04-May-2008 Intent Diana NUNEZ MD, Dana M FLU VAC, SPLIT, >3 YEARS, On: 20-Mar-2008 Intent INTRAMUSC (22794)By: Yared, Comments: Lot #[id number]-2/30/08Site-right deltoidDose0.5mlgiven by Caro Armenta IMMUNIZ ADMNIN, 1 VAC, On: 20-Mar-2008 Intent SNGL/COMBO ([id number])By: Kathi [facility] - ChestBy: Petey On: 28-Feb-2008 Intent Diana NUNEZ MD, Diana Nicole Comments: not better end of week INFUSION, NORMAL SALINE On: 06-Jul-2007 Intent SOLUTION , 250 CC ([id number])By: Jacquelyn Garcia CNP THER/PROPH/DIAG IV INF, INIT On: 06-Jul-2007 Intent ([id number])By: Jacquelyn Garcia CNP Rocephin Injection, 2 Gram On: 06-Jul-2007 Intent ([id number])By: Jacquelyn Garcia CNP Comments: 2gms infused left hand without problem HYDRATION IV INFUSION, INIT On: 05-Jul-2007 Intent ([id number])By: Jacquelyn Garcia CNP Comments: #22 gauge started to left forearm area without difficulty per erussell Vancoymcin 500mg/premixedBy: On: 05-Jul-2007 Intent Jacquelyn Garcia CNP Comments: x2Lot #:[id number] date:09-17-08 Amount given:1 gram Route: IVSite given:left forearm area Given by: gosia fernandez IMMUNIZ ADMNIN, 1 VAC, On: 08-Feb-2007 Intent SNGL/COMBO (58922)By: Marleni Kang DO FLU VAC, SPLIT, >3 YEARS, On: 08-Feb-2007 Intent INTRAMUSC ([id number])By: Jorge Luis SANCHEZ, Comments: given in left deltoid, 0.5cc, lot#[id number], exp.[phone] WF Marleni A THER/PROPH/DIAG IV INF, INIT On: 24-Jan-2007 Intent (61766)By: Marleni Kang DO Comments: #22 gauge initiated right forearm without difficulty per erussell INFUSION, NORMAL SALINE On: 24-Jan-2007 Intent SOLUTION , 250 CC ([id number])By: Marleni Kang DO Rocephin Injection, 2 Gram On: 24-Jan-2007 Intent ([id number])By: Marleni Kang DO Comments: Lot #:[id number] date: given:2 grams Route: IVSite given:right forearm Given by: gosia MAMMOGRAM, SCREENING, BOTH On: 26-Aug-2006 Intent BREASTS ([id number])By: Petey Comments: 10-12-06 Diana NUNEZ MD, Diana Nicole ELECTROCARDIOGRAM, COMPLETE On: 26-Aug-2006 Intent (ECG) ([id number])By: Diana Troncoso MD, MD, Diana Nicole Planned Medications INJECTION, CEFTRIAXONE SODIUM, PER 250 MG Ordered: 03-Jul-2014 Pending Diana Troncoso MD, MD, Diana Nicole INJECTION, METHYLPREDNISOLONE SODIUM SUCCINATE, UP TO 125 MG Ordered: 07-Mar-2010 Pending Ciesa FIELD MACHINIST, Kaitlin INJECTION, METHYLPREDNISOLONE SODIUM SUCCINATE, UP TO 125 MG Ordered: 10-Mar-2010 Pending Alber SANCHEZ, Katerine INJECTION, METHYLPREDNISOLONE SODIUM SUCCINATE, UP TO 125 MG Ordered: 13-Jun-2014 Pending Ciesa FIELD MACHINIST, Kaitlin INJECTION, METHYLPREDNISOLONE SODIUM SUCCINATE, UP TO 125 MG Ordered: 03-Jul-2014 Pending Diana Troncoso MD, MD, Dana M INJECTION, METHYLPREDNISOLONE SODIUM SUCCINATE, UP TO 125 MG Ordered: 19-Nov-2014 Pending Ciesa FIELD MACHINIST, Kaitlin INJECTION, TRIAMCINOLONE ACETONIDE, NOT OTHERWISE SPECIFIED, 10 MG Ordered: 21-Apr-2016 Pending Diana Troncoso MD, MD, Dana M Instructions Name Dates Details History of tobacco [...] Palpitation : Patient Instructions Indication: Palpitation Encounters Lab Order On: 22-Mar-2018 16:40 Encounter Diagnosis: Hypertensive left ventricular hypertrophy End: 22-Mar-2018 16:43 [facility] Phone Encounter On: 22-Feb-2018 16:29 Encounter Diagnosis: [...] ng preventative measures: mammography (2017) and colonoscopy ([id number]). The patient does have durable power of deputy attorney general and living will. The patient has noticed nothing from the geriatic depress ion scale. Other providers contributing to the patient's care are naprapath, regional medical director and other: (opthallina Richey).Encounter Diagnosis: BMI 29.0- 29.9,adult, History of [...] for Tdap vaccination (Renamed from Need for vmbiqebnkp-lndnppm-zllkmajdk (Tdap) vaccine, adult/adolescent) [facility] [...] Nutrition: balanced diet and supplemental vitamins. The in dical issues the patient is following up [...] The patient does have durable power of deputy attorney general and living will. The patient has noti silvano nothing from the geriatic depression scale. Other providers contributing to the patient's care are naprapath (Dr Young), icing coater (Arin - when had pneumonia but not currently in need of his care at this time), regional medical director (dr Garland), surgeon ([facility] - L shoulder) and other: (dentist - Dr Chiu - [facility] - goes every 3 years. [...] years ago will have today ), mammography (-2013) and colonoscopy (2005). The patient does have durable power of deputy attorney general and living will. The patient has noticed nothing from the geriatic depression scale. Other providers contributing to the patient's care are naprapath (Dr. Young ), gastrologist (Dr. Cande novak ), regional medical director (Dr. Garcia ) and other: (Dr. Reza [...] oral corticosteroids (celebrex).Encounter Diagnosis: Knee pain, right (719.46) [facility] Phone Encounter On: 25-Nov-2012 [...] visit: still red and tender to touch, Sangita took out cyst and dr sifuentesned it.- [...]
--- OUTSIDE RECORDS SUMMARY | 2018-07-07 08:33 | XMS RPT_ITS ---
:1940 Author Organization OHIP Support Name Relationship Address Phone R Unavailable Unavailable Unavailable PATEL, SARA Unavailable [address] + [place] [address] R Unavailable Unavailable Unavailable PATEL, SARA Unavailable [address] + [place] [address] R Unavailable Unavailable Unavailable PATEL, SARA Unavailable [address] + [place] [address] R Unavailable Unavailable Unavailable PATEL, SARA Unavailable [address] + [place] [address] R Unavailable Unavailable Unavailable PATEL, SARA Unavailable [address] + [place] [address] R Unavailable Unavailable Unavailable PATEL, SARA Unavailable [address] + [place] [address] R Unavailable Unavailable Unavailable PATEL, SARA Unavailable [address] + [place] [address] R Unavailable Unavailable Unavailable PATEL, SARA Unavailable [address] + [place] [address] R Unavailable Unavailable Unavailable PATEL, SARA Unavailable [address] + [place] [address] R Unavailable Unavailable Unavailable PATEL, SARA Unavailable [address] + [place] [address] R Unavailable Unavailable Unavailable PATEL, SARA Unavailable [address] + [place] [address] R Unavailable Unavailable Unavailable PATEL, SARA Unavailable [address] + [place] [address] R Unavailable Unavailable Unavailable PATEL, SARA Unavailable [address] + [place] [address] R Unavailable Unavailable Unavailable PATEL, SARA Unavailable [address] + [place] [address] R Unavailable Unavailable Unavailable PATEL, SARA Unavailable [address] + [place] [address] R Unavailable Unavailable Unavailable PATEL, SARA Unavailable [address] + [place] [address] R Unavailable Unavailable Unavailable PATEL, SARA Unavailable [address] + [place] [address] R Unavailable Unavailable Unavailable PATEL, SARA Unavailable [address] + [place] [address] R Unavailable Unavailable Unavailable PATEL, SARA Unavailable [address] + [place] [address] R Unavailable Unavailable Unavailable PATEL, SARA Unavailable [address] + [place] [address] R Unavailable Unavailable Unavailable PATEL, SARA Unavailable [address] + [place] [address] R Unavailable Unavailable Unavailable PATEL, SARA Unavailable [address] + [place] [address] R Unavailable Unavailable Unavailable PATEL, SARA Unavailable [address] + [place] [address] R Unavailable Unavailable Unavailable PATEL, SARA Unavailable [address] + [place] [address] R Unavailable Unavailable Unavailable PATEL, SARA Unavailable [address] + [place] [address] R Unavailable Unavailable Unavailable PATEL, SARA Unavailable [address] + [place] [address] R Unavailable Unavailable Unavailable PATEL, SARA Unavailable [address] + [place] [address] R Unavailable Unavailable Unavailable PATEL, SARA Unavailable [address] + [place] [address] R Unavailable Unavailable Unavailable PATEL, SARA Unavailable [address] + [place] [address] Care Team Providers Name Role Phone BonezzDinaa lee MD Attending Unavailable Bonezzi Diana NUNEZ Referring Unavailable Bonezzi Diana NUNEZ Consulting Unavailable Bonezzi, Diana Attending Unavailable Bonezzi, Diana Primary Care Unavailable Amna Vang Attending Unavailable Bonezzi, Diana Referring Unavailable Bonezzi, Diana Primary Care Unavailable Lonnie, Brennan Attending Unavailable Lonnie, Salineno Attending Unavailable Lonnie, Brennan Referring Unavailable Karen Briggs Attending Unavailable ParishispaManoj patel Attending Unavailable Bonezzi, Diana Referring Unavailable Bonezzi, Diana Primary Care Unavailable Bonezzi, Diana Consulting Unavailable [facility] Attending Unavailable Bonezzi, Diana Referring Unavailable DeFinisSlade Attending Unavailable Bonezzi, Diana Attending Unavailable Bonezzi, Diana Primary Care Unavailable VangAmna lopez Attending Unavailable Bonezzi, Diana Attending Unavailable Bonezzi, Diana Primary Care Unavailable Bonezzi, Diana Attending Unavailable Bonezzi, Diana Primary Care Unavailable Bonezzi, Diana Attending Unavailable Bonezzi, Diana Referring Unavailable Bonezzi, Diana Primary Care Unavailable Nishi Johnson Attending Unavailable Bonezzi, Diana Referring Unavailable Bonezzi, Diana Primary Care Unavailable VangAmna lopez Attending Unavailable Bonezzi, Diana Referring Unavailable Bonezzi, Diana Primary Care Unavailable Nishi Johnson Attending Unavailable Bonezzi, Diana Referring Unavailable Bonezzi, Diana Primary Care Unavailable Bonezzi, Diana Attending Unavailable Bonezzi, Diana Primary Care Unavailable Bonezzi, Diana Referring Unavailable Lonnie, Brennan Attending Unavailable Lonnie, Brennan Referring Unavailable Manoj Young Attending Unavailable Amna Vang Referring Unavailable Nishi Johnson Attending Unavailable Nishi Johnson Attending Unavailable Nishi Johnson Attending Unavailable Bonezzi, Diana Referring Unavailable Lonnie, Salineno Attending Unavailable Lonnie, Brennan Referring Unavailable Bonezzi, Diana Primary Care Unavailable Lonnie, Salineno Attending Unavailable Lonnie, Salineno Referring Unavailable Bonezzi, Diana Primary Care Unavailable Lonnie, Brennan Attending Unavailable Bonezzi, Diana Referring Unavailable Bonezzi, Diana Primary Care Unavailable Nishi Johnson Attending Unavailable Bonezzi, Diana Referring Unavailable Bonezzi, Diana Primary Care Unavailable Nishi Johnson Attending Unavailable Bonekelvin Diana Referring Unavailable VangAmna lopez Attending Unavailable Amna Vang Referring Unavailable Bonestevei, Diana Primary Care Unavailable Amna Vang Attending Unavailable Bonekelvin, Diana Primary Care Unavailable PROBLEMS PROBLEMS DATE TYPE CONDITION / CODE ATTENDING STATUS SOURCE 05/05/2018 Unknown E78.1 - Pure BoneDiana warren Active [place] hyperglyceridemia / [facility] E78.1(ICD-10) Hospital Repository 09/03/2017 Unknown I48.0 - Paroxysmal Vang, Active [place] atrial fibrillation / [facility] I48.0(ICD-10) Hospital Repository 09/03/2017 Unknown I49.3 - Ventricular Vang, Active [place] premature [facility] depolarization / Hospital I49.3(ICD-10) Repository 09/03/2017 Unknown R00.2 - Palpitations / Vang, Active [place] R00.2(ICD-10) [facility] Repository 07/31/2017 Unknown R10.9 - Unspecified BonezzRobert leea Active [place] abdominal pain / [facility] R10.9([facility]-10) [facility] Repository 07/29/2017 Unknown I49.5 - Sick sinus Lonnie, Salineno Active [place] syndrome / [facility] I49.5(ICD-10) Hospital Repository 07/19/2017 Unknown R06.02 - Shortness of Lonnie, Salineno Active [place] breath / [facility] R06.02(ICD-10) Hospital Repository 06/15/2017 Unknown I10 - Essential Vang, Active [place] (primary) hypertension [facility] / I10(ICD-10) Hospital Repository 06/15/2017 Unknown R53.83 - Other fatigue Vang, Active [place] / R53.83(ICD-10) [facility] Hospital Repository 06/15/2017 Unknown R06.09 - Other forms Vang, Active [place] of dyspnea / [facility] R06.09(ICD-10) Hospital Repository 07/15/2017 Unknown R00.1 - Bradycardia, [place], Active [place] unspecified / [facility] R00.1(ICD-10) Hospital Repository PROCEDURES PROCEDURES No Procedure Records FoundRESULTS RESULTS CARDIOLOGY VISIT Observed: 01/18/2018 Status: F Source: [place] REPORT 2:13 PM [facility] REPOSITORY [facility] [address] [place] [address] OFFICE VISIT Date of Service: 01/18/18 MR#: [id number] Acct: [id number] Name: PARVIN PATEL Rep #: [id number] : 1940 Provider: ELISE Bah Age/Sex: 77/F Location[place] [facility] [place] Status: Signed HPI HPI Details: PARVIN PATEL, is a 77 F who presents to the office today for a cardiovascular outpatient follow-up. She has a history of symptomatic sinus bradycardia with pacemaker placement, tachybradycardia syndrome, paroxysmal atrial fibrillation, hyperlipidemia, and hypertension. Pt. denies chest, arm, jaw, or neck discomfort. Her exercise tolerance is stable. Pt. denies symptoms of CHF, lightheadedness, near syncope, or syncopal episodes. Pt. denies edema or claudication issues. Pt. denies orthopnea, PND, fever, chills, blood in urine, blood in stool, myalgia, or unexplainable fatigue. She states last week she noticed dizziness. She states this occurred while standing. This lasted for 10-15 seconds. She denied any secondary symptoms with it. This seems to occur every 2 weeks. She states occasional chest twinge. This does not occur with exertion. This is unchanged over the last few years. Intake Intake Visit Reasons: surg clearance Allergies methocarbamol [From Robaxin] Allergy (Verified 12/16/17 12:57) Other procaine HCl [From Novocain] Allergy (Verified 12/16/17 12:57) Other Medications Calcium Carbonate [Calcium] 1,000 mg PO DAILY 12/16/14 [History Confirmed 01/18/18] Cholecalciferol (VIT D3) [Vitamin D] 1,000 unit PO DAILY 12/16/14 [History Confirmed 01/18/18] Minocycline [Minocin] 100 mg PO DAILY 12/16/14 [History Confirmed 01/18/18] Potassium Chloride [K-Dur] 20 meq PO BID 12/16/14 [History Confirmed 01/18/18] magnesium oxide 400 mg tablet 400 mg PO BID #180 tab 05/28/17 [Rx Confirmed 01/18/18] hydrochlorothiazide 12.5 mg capsule 12.5 mg PO QDAY cap 06/02/17 [History Confirmed 01/18/18] levomefolate calcium 7.5 mg tablet 7.5 mg PO QDAY 06/08/17 [History Confirmed 01/18/18] losartan 100 mg tablet 100 mg PO DAILY #30 tab 06/08/17 [Rx Confirmed 01/18/18] metoprolol tartrate 25 mg tablet 12.5 mg PO DAILY 06/08/17 [History Confirmed 01/18/18] [place]-3 Fatty Acids/Fish Oil [Fish Oil 1,000 mg Capsule] 1 ea PO DAILY 06/28/17 [History Confirmed 01/18/18] flecainide 100 mg tablet 100 mg PO BID #180 tab 12/09/17 [Rx Confirmed 01/18/18] aspirin 81 mg tablet,delayed release 81 mg PO DAILY 01/18/18 [History Confirmed 01/18/18] evolocumab 140 mg/mL subcutaneous pen injector 140 mg SC Q2W 01/18/18 [History Confirmed 01/18/18] PFSH Medical History PSVT (paroxysmal supraventricular tachycardia) (Chronic) PAC (premature atrial contraction) (Chronic) HTN (hypertension) (Chronic) Sick sinus syndrome (Chronic) Hyperlipidemia (Chronic) Hypokalemia (Chronic) Paroxysmal atrial fibrillation (Chronic) Premature ventricular contractions (Chronic) [...] you participate in: none ROS Const Const: Negative for fatigue, weakness, body ache, fever(s) or chills ENT ENT: Positive for dizziness Cardio Chest Pain: No Palpitations: Yes Edema: None Muscle aches with walking: None Resp Respiratory: Negative for SOB with activity, SOB at rest, SOB orthopnea\SOB lying down or paroxysmal nocturnal dyspnea GI GI: Negative nausea, black,tarry stools, bright, red blood in stools or vomiting blood/hematemesis : Negative for hematuria or frequent nighttime urination/ nocturia Musc Musc: Negative for muscle aches/ myalgia Skin Skin: Negative non-healing lesions or rash Neuro Neuro: Positive for dizziness; negative for weakness, lightheadedness, near syncope, syncope or orthostatic symptoms Endo Endo: Negative for fatigue Allergy Allergy/Immunology: Negative for rash Cardiology Exam Const Appearance: cooperative, no acute distress and well developed Nutritional Appearance: overweight Orientation: alert, awake and oriented x3 Head Head: normocephalic, atraumatic and normal to inspection Ears: hearing grossly normal bilaterally Nose: external [...] May 2017 was negative for ischemia. Echocardiogram from October 2014 showed an ejection fraction of 55%, septal bounce, mild mitral valve insufficiency, mild tricuspid valve insufficiency, mild focal aortic valve thickening, trivial aortic valve insufficiency, mild pulmonic valve insufficiency, and RVSP of 30 mmHg. 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 30-day event monitor from November 2012 showed basic rhythm of sinus bradycardia with rates from 56-70 bpm, 3 episodes of atrial fibrillation with rates from 63-138 bpm, no ectopic complexes noted, one 2.4-second pause, and patient's symptoms of palpitations correlated with atrial fibrillation and symptoms of rapid pulse correlated with atrial tachycardia. Pacemaker check from November 2017 showed no MS, no AT/AF, and no VT episodes, presenting rhythm of AAI pacing at 98 ppm, ELECTROPLATER APPRENTICE=0%, AP=96.2%, and battery life estimated to be [address] scan from November 2017 showed a calcium score of 307, which [...] via pacemaker clinic. She will continue current medications. 3. Sick sinus syndrome I49.5 Plan She is status post permanent pacemaker for this. Her heart rate remains stable. 4. Essential hypertension I10 Plan Patient's blood pressure is well-controlled today in the office. We will continue to monitor this. We will not make any medication regimen changes. 5. Pre-operative cardiovascular examination Z01.810 Plan Her stress test from May 2017 was negative for ischemia. Her carotid duplex from November 2016 showed mild stenosis of right and left extracranial internal carotid. Her pacemaker check from November 2017 showed no concerning dysrhythmia. At this time given lack of major cardiac [...] were not noted upon reviewing the office note prior to saving. Coding Level of Care Code Off vis,est,level 3 Diagnoses Dizziness R42 Paroxysmal atrial fibrillation I48.0 Sick sinus syndrome I49.5 Essential hypertension I10 Hypertension type: essential hypertension Pre-operative cardiovascular examination Z01.810 Coding Level of Care Code Off vis,est,level 3 Diagnoses Dizziness R42 Paroxysmal atrial fibrillation I48.0 Sick sinus syndrome I49.5 Essential hypertension I10 Hypertension type: essential hypertension Pre-operative cardiovascular examination Z01.810 01/18/18 1413 <Electronically signed by Eliceo WOMACK> Date Eliceo WOMACK Cosigner Signature: Date (if applicable) CC: Bob Padron MD; Diana Saravia MD LIMITED CHEST CT Observed: 12/16/2017 Status: F Source: [place] W/CCTA 1:20 PM [facility] REPOSITORY [facility] Imaging Services [address] [place] [address] w/CCTA MR#: [id number] Acct: [id number] Name: PARVIN PATEL Rep #: [id number] : 1940 F 77 From: Archie Caceres MD PCP: Diana Saravia MD Status: REG CLI Study: Limited Chest CT w/CCTA Date of Exam: 12/16/17 Exam# [id number] Ordering Dr: Diana Saravia MD STUDY: CT CHEST WITHOUT CONTRAST REASON FOR EXAM: Female, 77 years old. Elevated cholesterol. This is an over read for cardiac calcium score. RADIATION DOSAGE (If Supplied By Facility): CTDIvol = ( 12.19 ) mGy, DLP = ( 243.79 ) mGycm TECHNIQUE: Transaxial imaging was performed without the administration of intravenous contrast material. Individualized dose optimization techniques were used for this CT. COMPARISON: None. FINDINGS: Mild degree of emphysematous changes [...] regions. Normal unenhanced pulmonary arteries. There is atherosclerotic calcification of the aortic arch with tortuosity and elongation of the aortic arch and descending thoracic aorta. Normal osseous structures. Small hiatal hernia. CT/Limited Chest CT w/CCTA IMPRESSION: Mild degree of emphysematous changes. Coronary artery calcification. Electronically Signed: Archie Caceres MD at 9:03 EDT Tel [phone], Service support , CC: Diana Saravia MD Cue Worker: Signed PACEMAKER CHECK Observed: 12/02/2017 Status: F Source: [place] 8:55 AM [facility] REPOSITORY [address] [place] [address] Pacemaker Check Date of Service: 12/01/172006 MR#: [id number] Acct: [id number] Name: PARVIN PATEL Rep #: [id number] : 1940 From: Nishi Johnson Age/Sex: 77/F Location: [facility] [place] Status: Signed 12/01/172008 <Electronically signed by Nishi Johnson > Date Nishi Johnson 12/02/17 0855<Electronically signed by Manoj Young MD> Cosigner Signature: Date (if applicable) Manoj Young MD CC: CARDIOLOGY VISIT Observed: 09/04/2017 Status: F Source: [place] REPORT 11:47 AM [facility] REPOSITORY [facility] [address] [place] [address] OFFICE VISIT Date of Service: 09/03/17 MR#: [id number] Acct: [id number] Name: PARVIN PATEL Rep #: [id number] : 1940 Provider: Amna Vang Age/Sex: 76/F Location[place] [facility] [place] Status: Signed HPI HPI Details: PARVIN PATEL, is a 76 F who presents to the office today for a cardiovascular follow-up. She has a history of symptomatic sinus bradycardia with recent pacemaker placement, tachybradycardia syndrome, hyperlipidemia and hypertension. Overall patient states that since having her pacemaker placed she feels much improved. She states that now she feels normal. She does not have any shortness of breath. She is less fatigued. She has had some dizziness last week however feels that this is related to some sinus drainage. Her primary care doctor is encouraged her to resume her pravastatin. Patient is considering this however she does have significant myalgias on her statin medication. She states that she will do this next week with a very low dose. Recent pacemaker interrogation demonstrated one episode of supraventricular tachycardia. 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 Accompanied by: none Is patient in pain?: No Allergies methocarbamol [From Robaxin] Allergy (Verified 09/03/17 11:18) Other procaine HCl [From Novocain] Allergy (Verified 09/03/17 11:18) Other Medications Calcium Carbonate [Calcium] 1,000 mg PO DAILY 12/16/14 [History Confirmed 09/03/17] Cholecalciferol (VIT D3) [Vitamin D] 1,000 unit PO DAILY 12/16/14 [History Confirmed 09/03/17] Flecainide [Tambocor] 100 mg PO BID 12/16/14 [History Confirmed 09/03/17] Minocycline [Minocin] 100 mg PO DAILY 12/16/14 [History Confirmed 09/03/17] Potassium Chloride [K-Dur] 20 meq PO BID 12/16/14 [History Confirmed 09/03/17] magnesium oxide 400 mg tablet 400 mg PO BID #180 tab 05/28/17 [Rx Confirmed 09/03/17] hydrochlorothiazide 12.5 mg capsule 12.5 mg PO QDAY cap 06/02/17 [History Confirmed 09/03/17] levomefolate calcium 7.5 mg tablet 7.5 mg PO QDAY 06/08/17 [History Confirmed 09/03/17] losartan 100 mg tablet 100 mg PO DAILY #30 tab 06/08/17 [Rx Confirmed 09/03/17] metoprolol tartrate 25 mg tablet 12.5 mg PO DAILY 06/08/17 [History Confirmed 09/03/17] [place]-3 Fatty Acids/Fish Oil [Fish Oil 1,000 mg Capsule] 1 ea PO DAILY 06/28/17 [History Confirmed 09/03/17] Ejection fraction %: 55 to 59 PFSH Medical History PSVT (paroxysmal supraventricular tachycardia) (Chronic) PAC (premature atrial contraction) (Chronic) HTN (hypertension) (Chronic) Sick sinus syndrome (Chronic) Hyperlipidemia (Chronic) Hypokalemia (Chronic) Paroxysmal atrial fibrillation (Chronic) Premature ventricular contractions (Chronic) [...] you participate in: none ROS Const Const: Negative for weakness, fatigue, fever(s) or headache(s) Eyes Eyes: Negative for blind spots, loss of peripheral vision or transient loss of vision ENT ENT: Negative for headache(s), dizziness, tinnitus or Nosebleed/epistaxis Cardio Chest Pain: No Palpitations: No Edema: None Muscle aches with walking: None Resp Respiratory: Negative for SOB with activity, SOB at rest, SOB orthopnea\SOB lying down or Cough GI GI: Negative nausea, vomiting, heartburn or vomiting blood/hematemesis : Negative for hematuria Musc Musc: Negative for muscle aches/ myalgia Neuro Neuro: Negative for weakness, headache(s), dizziness, near syncope, syncope, lightheadedness or [...] 2018 was negative for ischemia. Echocardiogram in 2013 demonstrated Left ventricular systolic function is normal. The estimated ejection fraction is 55 %. Septal bounce. Mild (1+) mitral valve insufficiency. Mild tricuspid valve insufficiency. Mild focal aortic valve thickening. Trivial aortic valve insufficiency. Mild (1+) pulmonic valve insufficiency. Right ventricular systolic pressure estimated to be 30 mmHg. Assessment AND Plan 1. Essential hypertension I10 Plan Blood pressure is well controlled on current medications, we do not recommend any changes at this time. 2. Mixed hyperlipidemia E78.2 Plan Patient states that these are not adequately controlled. She is trying to resume her pravastatin that is being prescribed by her primary care doctor. She states that she is also monitoring her diet closely. Have asked for copy of labs for continuity of care. 3. Paroxysmal atrial fibrillation I48.0 Plan Patient has not had any further symptomatic recurrence. She will continue with a rate limiting medication in addition to her antiarrhythmic. We will continue to monitor through pacemaker interrogations. She is aware that if she has any recurrence that she may need to resume an anticoagulant. 4. Presence of cardiac pacemaker Z95.0 Plan Pacemaker is functioning appropriately. We will continue to [...] Z95.0 Coding Level of Care Code Off vis,est,level 3 Diagnoses Essential hypertension I10 Hypertension type: essential hypertension Mixed hyperlipidemia E78.2 Hyperlipidemia type: mixed hyperlipidemia Paroxysmal atrial fibrillation I48.0 Presence of cardiac pacemaker Z95.0 09/04/17 1147 <Electronically signed by Amna CARVER> Date Amna CARVER [facility] Signature: Date (if applicable) CC: Diana Saravia MD PACEMAKER CHECK Observed: 08/31/2017 Status: F Source: [place] 5:26 PM [facility] REPOSITORY [facility] [address] [place] [address]. [address] [place] [address] Pacemaker Check Date of Service: 08/20/17 1417 MR#: [id number] Acct: [id number] Name: PARVIN PATEL Vikas Rep #: [id number] : 1940 From: Nishi Johnson Age/Sex: 76/F Location: [facility] Status: Signed Comments Summary Comments: Dual Chamber Pacemaker Evaluation: See attached scanned clinical data programmer report. 6 wk post implant check completed. Interrogation [...] of infection or erosion. Pt offers no cardiac complaints. Presenting rhythm shows AAI pacing @ 71 ppm. ELECTROPLATER APPRENTICE=0.1%. Estimated battery life 9 yrs. Device and lead measurements stable. Decreased A/V amplitudes with adequate safety margin to preserve battery longevity. Counters cleared. Next remote f/u appt scheduled for in 3 mos. Device Device Date Interviewed: 08/20/17 Follow-up Location: in office Interview Reason: scheduled follow up Line Operator: [employer] Name: Fazal GALLOWAY Model: A2DR01 Serial #: [id number] Implant Date: 06/28/17 Year(s): 0 Implant Physician: Dr. Brennan Fleming/[facility] Patient Characteristics Atrial Indication: sick sinus syndrome, Paroxysmal atrial fibrillation Patient Substrate: Arrhythmia Underlying rhythm: Sinus bradycardia Pacemaker Dependent: No Device Characteristics Device: Dual Chamber Type: Pacemaker Remote Follow-Up: [facility] Device Physical Exam Yes Incision well healed Leads Lead #1 Line Operator Lead 1: [employer] Model Lead 1: 5076/45 Serial# Lead 1: [id number] Date Implanted Lead 1: 06/28/17 Position Lead 1: RA Lead #2 Line Operator Lead 2: [employer] Model Lead 2: 5076/52 Serial# Lead 2: [id number] Date Implanted Lead 2: 06/28/17 Position Lead 2: RV Diagnostics Pacing % RA Pacin.9 % RV Pacin.1 Mode Switching Total # Episodes: 1 % Mode switched: 0.1 Arrhythmias Non-Sust Episodes: 1 Allan Settings Allan Settings Pacemaker Mode AAIR+ Output/Sensing V/PW (ms) 2.0/0.4 2.0/0.4 Sensitivity RA RV LV Comments: Billing Codes PM Device Codes: PM Dev Prog Eval, Dual Assessment AND Plan Problems 1. Presence of cardiac pacemaker Z95.0 2. PSVT (paroxysmal supraventricular tachycardia) I47.1 3. Sick sinus syndrome I49.5 4. Paroxysmal atrial fibrillation I48.0 5. Near syncope R55 08/30/17 2031 <Electronically signed by Nishi Johnson > Date Nishi Johnson 08/31/17 1726<Electronically signed by Manoj Young MD> Cosigner Signature: Date (if applicable) Manoj Young MD CC: CBC W/DIFF, AUTOMATED Collected: 07/30/2017 Status: F Source: [place] 3:19 PM [facility] REPOSITORY Order Comment: Order Date: 07/30/17 Order Info: [id number] - [id number] Order Info: 91815-2 - SED TYPE CODE TESTS RESULT OUT OF RANGE REFERENCE UNITS LAB L100.1000 4.4-11.0 K/mm3 Normal WBC 10.0 LAB L100.1200 4.2-5.4 M/mm3 Normal RBC 4.73 LAB L100.1300 12.0-15.0 g/dl Normal HGB 14.1 LAB L100.1400 37-47 % Normal HCT 40.8 LAB L100.1500 81-99 fL Normal MCV 86.3 LAB L100.1600 27.0-32.0 pg Normal MCH 29.8 LAB L100.1700 32-36 g/gl Normal MCHC 34.6 LAB L100.1810 11.6-14.6 % Normal RDW CV 13.6 LAB L100.1820 35.1-43.9 fl Normal RDW SD 42.3 LAB L100.1900 150-450 K/mm3 Normal PLT 225 LAB L100.2000 6.2-12.0 fl Normal MPV 10.4 LAB L100.2100 47-70 % Normal NEUT% 66.3 LAB L100.2200 19-41 % Normal LY% 20.3 LAB L100.2300 0-10 % Normal MONO% 9.3 LAB L100.2400 0-5 % Normal EO% 3.5 LAB L100.2500 0-1 % Normal BASO% 0.4 LAB L100.2550 0.0-0.9 % Normal IM GRAN % 0.200 Result Comment: IG% - Immature Granulocytes (promyelocytes, myelocytes and metamyelocytes) > 1% indicates that a LEFT SHIFT is Present. LAB L100.2620 2.0-7.7 X10 3/uL Normal Absolute Neut 6.6 LAB L100.2720 0.83-4.51 X10 3/ul Normal Absolute Lymph 2.02 Performed By: #### L100.0100, L500.2500, L101.9900 #### [facility] [address] [place], [address] BASIC METABOLIC Collected: 07/30/2017 Status: F Source: [facility] PROFILE (BMP) 3:19 PM [facility] REPOSITORY Order Comment: Order Date: 07/30/17 Order Info: 0667-1 - BMP TYPE CODE TESTS RESULT OUT OF RANGE REFERENCE UNITS LAB L501.0100 74-106 mg/dL Normal GLU 106 Result Comment: Fasting Glucose result from 100 to 125 mg/dL suggests IMPAIRED HOMEOSTASIS per A.D.A. criteria. Please note revised GLUCOSE reference range effective 2017. LAB L501.1000 7-18 mg/dL Normal BUN 10 LAB L501.1100 0.55-1.02 mg/dL Normal CREAT,SERUM 0.94 Result Comment: The validity of the calculated GFR AND GFRAA in patients over 70 years has not been determined. Clinical correlation is essential. LAB L501.1110 >60 mL/min Normal EST GFR 61 Result Comment: Non- GFR Calc LAB L501.1115 >60 mL/min Normal EST GFR - AA 74 Result Comment: GFR Calc LAB L501.1300 10-20 RATIO Normal BUN/CRE 10.6 LAB L501.2200 8.5-10.1 mg/dL CA Normal 8.9 LAB L501.5300 136-145 mmol/L NA Normal 138 LAB L501.5600 3.5-5.1 mmol/L K Normal 3.8 LAB L501.5900 98-107 mmol/L CL Normal 101 LAB L501.6100 21.0-32.0 mmol/L Normal CO2 27.0 LAB L501.6200 5-15 Normal GAP 10 Performed By: #### L100.0100, L500.2500, L101.9900 #### [facility] [address] [place], [address] ERYTHROCYTE SED RATE Collected: 07/30/2017 Status: F Source: [facility] 3:19 PM [facility] REPOSITORY Order Comment: Order Date: 07/30/17 Order Info: 0184-1 - CBCD Order Info: 20233-2 - SED TYPE CODE TESTS RESULT OUT OF RANGE REFERENCE UNITS LAB L102.0000 0-30 mm/hr Normal SED RATE 26 Performed By: #### L100.0100, L500.2500, L101.9900 #### [facility] [address] [place], [address] PACEMAKER CHECK Observed: 07/07/2017 Status: F Source: [place] 2:44 PM [facility] REPOSITORY [facility] [address] [place] [address] Pacemaker Check Date of Service: 07/06/17 1626 MR#: [id number] Acct: [id number] Name: PARVIN PATEL Rep #: [id number] : 1940 From: Nishi Johnson Age/Sex: 76/F Location[place] [facility] [place] Status: Signed Comments Summary Comments: Dual Chamber Pacemaker Evaluation and Wound Check: 1 wk post PPM implant wound check completed. Left pectoral pocket/incision open to air with steri-strips intact. Steri-strips loose so remove gently. Incision well approximated w/o redness, drainage or swelling noted. No hematoma noted. Pt afebrile T=97.5 degrees F temporally. Pt concerned about leads because she sometimes lifted arm above head. Interrogation shows No MS or VT episodes since 06/29/17. Presenting rhythm shows AAI pacing @ 67 ppm. AP=94.3%, ELECTROPLATER APPRENTICE=<0.1%. Lead impedances, ventricular sensing and A/V pace/sense thresholds remain stable. Unable to check atrial sensing d/t no intrinsic P waves with rate decrease. No parameter changes made. Counters cleared. 6 wk post implant appt scheduled. Pt instructed on how to use smart Carelink monitor. Device Device Date Interviewed: 07/06/17 Follow-up Location: in office Interview Reason: scheduled follow up Line Operator: [employer] Name: Fazal GALLOWAY Model: [id number] Serial #: [id number] Implant Date: 06/28/17 Year(s): 0 Implant Physician: Dr. Brennan Fleming/[facility] Patient Characteristics Atrial Indication: sick sinus syndrome, Paroxysmal atrial fibrillation Patient Substrate: Arrhythmia (junctional rhythm) Underlying rhythm: Sinus bradycardia Pacemaker Dependent: No Device Characteristics Device: Dual Chamber Type: Pacemaker Remote Follow-Up: Carelink Device Physical Exam Yes Incision well healed, No drainage and Steri-strips intact Leads Lead #1 Line Operator Lead 1: [employer] Model Lead 1: 5076/45 Serial# Lead 1: [id number] Date Implanted Lead 1: 06/28/17 Position Lead 1: RA Lead #2 Line Operator Lead 2: [employer] Model Lead 2: 5076/52 Serial# Lead 2: [id number] Date Implanted Lead 2: 06/28/17 Position Lead 2: RV Diagnostics Pacing % RA Pacin.3 % RV Pacin.1 Mode Switching Total # Episodes: 0 % Mode switched: 0 Arrhythmias Non-Sust Episodes: 0 Measurements Battery Voltage (V): 3.07 Magnet Rate (bmp): 85 TIO Voltage: 2.83 RA Measurements Impedance (Ohms): 494 Threshold Voltage: 1.0 @ PW(ms): 0.4 RV Measurements Signal Amplitude (mV): 17.3 Impedance (Ohms): 646 Threshold Voltage: 1.0 @ PW(ms): 0.4 Allan Settings Allan Settings Pacemaker Mode AAIR+ Output/Sensing V/PW (ms) 3.5/0.4 3.5/0.4 Sensitivity RA RV LV Comments: Billing Codes PM Device Codes: PM Dev Prog Eval, Dual Assessment AND Plan Problems 1. Presence of cardiac pacemaker Z95.0 2. Sick sinus syndrome I49.5 3. PSVT (paroxysmal supraventricular tachycardia) I47.1 4. PAC (premature atrial contraction) I49.1 5. Paroxysmal atrial fibrillation I48.0 6. Premature ventricular contractions I49.3 7. Palpitations R00.2 8. Near syncope R55 07/06/17 1716 <Electronically signed by Nishi Johnson > Date Nishi Johnson 07/07/17 1444<Electronically signed by Brennan Fleming MD> Cosigner Signature: Date (if applicable) Brennan Fleming MD CC: DISCHARGE INSTRUCTION Observed: 06/29/2017 Status: F Source: [place] 10:50 AM [facility] REPOSITORY [facility] Medical Records Department [address] [place] [address] Instructions for Home/Discharge Instructions 06/29/17 1042 MR#: [id number] Acct: [id number] Name: PARVIN PATEL Rep #: [id number] : 1940 76 From: Brennan Fleming MD PCP: Diana Saravia MD Status: REG [facility] Discharge Diet: No Restrictions Discharge Activity: Return to Normal Activity - as you feel able. No excessive stretching. No lifting your arm over your head (keep elbow below shoulder level) until seen for your pacemaker check. Do not lift your elbow away from your side until you are seen for your first visit. Keep the arm sling on if it helps remind you not to lift your arm. Additional Activity Instructions:: May shower or bathe on []. Do not scrub the incision or soak in the tub. Just wash with soap and let the water run over the incision. Gently pat dry with towel. Medications: Take your pain medication as directed. Refer to your discharge instruction sheet for a list of medications you are to take. Call your doctor if your incision/area has: Continuous Slow Oozing, Sudden Increased Bleeding, Increased Pain/ Swelling, Increased Redness, Foul Smelling Discharge, Swelling at the incision site Call your doctor if you observe: Fever of 101 or Higher, Shortness of breath, Dizziness, Fainting spells, Swelling in the ankles, Chest pain, Prolonged hiccoughing, Increased palpitations (irregular heartbeat) Additional Dressing/Incision Instructions:: When dressing is removed, wash and dry incision. Keep covered with a light bandage if it is rubbing against your clothing. Do not cover the incision with an airtight bandage. Change the bandage daily. Do not remove steri strips. The strips will fall off on their own. Additional Instructions: Signs and Symptoms to Report to Your Doctor at Once - call your doctor's office or Doctor's Registry ([phone]) Call 911 or go to the nearest Emergency Department if you feel you need urgent care. *Infection (fever, increased redness or swelling at the incision site, drainage from the incision increased pain at the pacemaker site) *Shortness of breath *Dizziness *Fainting spells *Swelling in the ankles *Chest pain *Prolonged hiccoughing *Increased palpitaitons (irregular heartbeat) Medications: Take your pain medication as directed. Refer to your discharge instruction sheet for a list of medications you are to take. Allergies/Adverse Reactions: Allergies methocarbamol [From Robaxin] Allergy (Verified 06/28/17 11:20) Other procaine HCl [From Novocain] Allergy (Verified 06/28/17 11:20) Other Medications to take at Discharge Calcium Carbonate [Calcium] 1,000 mg PO DAILY 12/16/14 Cholecalciferol (VIT D3) [Vitamin D] 1,000 unit PO DAILY 12/16/14 Flecainide [Tambocor] 100 mg PO BID 12/16/14 Minocycline [Minocin] 100 mg PO DAILY 12/16/14 Potassium Chloride [K-Dur] 20 meq PO BID 12/16/14 magnesium oxide 400 mg tablet 400 mg PO BID #180 tab 05/28/17 hydrochlorothiazide 12.5 mg capsule 12.5 mg PO QDAY cap 06/02/17 levomefolate calcium 7.5 mg tablet 7.5 mg PO QDAY 06/08/17 losartan 100 mg tablet 100 mg PO DAILY #30 tab 06/08/17 metoprolol tartrate 25 mg tablet 12.5 mg PO DAILY 06/08/17 [place]-3 Fatty Acids/Fish Oil [Fish Oil 1,000 mg Capsule] 1 each PO DAILY 06/28/17 Primary Care Physician: Bonezzi,Diana, MD [Primary Care Provider] - When: pacer nurse 06/29/17 1050 <Electronically signed by Brennan Fleming MD> Date Brennan Fleming MD CC: Diana Saravia MD CHEST 1 VIEW Observed: 06/29/2017 Status: F Source: [facility] 12:07 AM [facility] REPOSITORY [facility] Imaging Services [address] [place] [address] Chest 1 View MR#: [id number] Acct: [id number] Name: PARVIN PATEL Rep #: [id number] : 1940 F 76 From: Liam Arreaga PCP: Diana Saravia MD Status: REG [facility] Study: Chest 1 View Date of Exam: 06/29/17 Exam# [id number] Ordering Dr: Brennan Fleming MD STUDY: X-RAY CHEST REASON FOR EXAM: Female, 76 years old. Pacemaker insertion TECHNIQUE: Single frontal view COMPARISON: 06/29/2017 FINDINGS: Pacemaker leads are in proper position. The lungs are clear and expanded. There is no [...] support , CC: Brennan Fleming MD; Diana Saravia MD Cue Worker: Signed CHEST PA AND LATERAL Observed: 06/29/2017 Status: F Source: [facility] 12:00 AM [facility] REPOSITORY [facility] Imaging Services [address] [place] [address] Chest PA and Lateral MR#: [id number] Acct: [id number] Name: PARVIN PATEL Rep #: [id number] : 1940 F 76 From: Liam Arreaga PCP: Diana Saravia MD Status: [facility] Study: Chest PA and Lateral Date of Exam: 06/29/17 Exam# [id number] Ordering Dr: Brennan Fleming MD STUDY: X-RAY CHEST REASON FOR EXAM: Female, 76 years old. Pacemaker placement TECHNIQUE: PA and lateral COMPARISON: 04/28/2017 FINDINGS: Pacemaker leads are in proper position. The lungs are clear and expanded. There is no demonstrated pleural abnormality. Normal size heart. Normal mediastinum and glenys. Normal visualized pulmonary arteries. Normal visualized aortic arch and descending thoracic aorta. Normal visualized thoracic spine. Normal visualized ribs, clavicles, and shoulders. There is no demonstrated abnormality of the visualized soft tissue structures of the upper abdomen. RAD/Chest PA and Lateral IMPRESSION: Pacemaker leads are in proper position. There is NO pneumothorax. Electronically Signed: Liam Arreaga MD at 7:08 EDT , Service support , CC: Brennan Fleming MD; Diana Saravia MD Cue Worker: Signed OFFICE VISIT REPORT Observed: 06/22/2017 Status: F Source: [facility] 11:03 AM [facility] REPOSITORY [facility] [address] [place] [address] OFFICE VISIT Date of Service: 06/21/17 MR#: [id number] Acct: [id number] Patient: PARVIN PATEL Rep #: [id number] : 1940 Provider: Nishi Johnson Age/Sex: 76/F Location: [facility] [place] Status: Signed Comments Summary Comments: Pacemaker instructions, written and verbal, given to patient and daughter including post-op wound check appt. All questions answered and patient verbalized understanding. Device Device Date Interviewed: 06/21/17 Follow-up Location: in office Interview Reason: scheduled follow up Billing Codes Nurse, Teaching, Wound Ck (no charge): Yes Assessment AND Plan Problems 1. Sick sinus syndrome I49.5 2. PSVT (paroxysmal supraventricular tachycardia) I47.1 3. Paroxysmal atrial fibrillation I48.0 4. Premature ventricular contractions I49.3 5. Palpitations R00.2 6. Near syncope R55 06/21/17 1451 <Electronically signed by Nishi Johnson > Date Nishi Johnson 06/22/17 1103<Electronically signed by Brennan Fleming MD> Yovanny Signature: Date (if applicable) Brennan Fleming MD CC: CBC-COMPLETE BLOOD CNT Collected: 06/21/2017 Status: F Source: NATAYL NO DIFF 3:01 PM [facility] REPOSITORY TYPE CODE TESTS RESULT OUT OF RANGE REFERENCE UNITS LAB L100.1000 4.4-11.0 K/mm3 Normal WBC 7.2 LAB L100.1200 4.2-5.4 M/mm3 Normal RBC 4.95 LAB L100.1300 12.0-15.0 g/dl Normal HGB 14.8 LAB L100.1400 37-47 % Normal HCT 44.0 LAB L100.1500 81-99 fL Normal MCV 88.9 LAB L100.1600 27.0-32.0 pg Normal MCH 29.9 LAB L100.1700 32-36 g/gl Normal MCHC 33.6 LAB L100.1810 11.6-14.6 % Normal RDW CV 14.4 LAB L100.1820 35.1-43.9 fl High RDW SD 46.1 LAB L100.1900 150-450 K/mm3 Normal PLT 171 LAB L100.2000 6.2-12.0 fl Normal MPV 10.5 Performed By: #### L100.0500 #### [facility] [address] [place], [place], [address] URINALYSIS, COMPLETE Collected: 06/21/2017 Status: F Source: [place] 3:01 PM [facility] REPOSITORY Order Comment: How was Urine Obtained? MARKETING INFORMATION COORDINATOR TO SPECIFY TYPE CODE TESTS RESULT OUT OF RANGE REFERENCE UNITS LAB L400.3000 Yellow COLOR Normal Yellow LAB L400.3050 Clear Normal CLARITY Clear LAB L400.3200 Normal mg/dl Normal GLUCOSE, UR Normal LAB L400.3300 Negative mg/dL Normal BILIRUBIN URINE Negative LAB L400.3400 Negative mg/dl Normal KETONE UR Negative LAB L400.3465 1.002-1.030 Normal SP.GR. DIPSTX 1.015 LAB L400.3550 5.0 - 8.0 pH UR Normal 6.0 LAB L400.3600 Negative mg/dl PROT Normal DIPSTX Negative LAB L400.3700 Normal mg/dl Normal UROBILI Normal LAB L400.3750 Negative Normal NITRITE UR Negative LAB L400.3780 Negative /ul Normal OCCULT BLOOD-UR Negative LAB L400.3800 Negative /ul High LEUK 25 ESTERASE LAB L400.4050 0-5 /hpf WBC Normal 0-5 SEEN LAB L400.4100 0-5 /hpf 0 Normal RBC-UA SEEN LAB L400.4150 5-10 /hpf SQUAM Normal EPI 0-5 SEEN LAB L400.4300 None Seen /hpf 0 Normal BACTERIA SEEN LAB L400.4350 <or=2+ /hpf 0 Normal MUCUS, URINE SEEN Performed By: #### L400.0001, L300.3900 #### [facility] [address] [place], [place], [address] PROTHROMBIN TIME W/INR Collected: 06/21/2017 Status: F Source: [facility] 3:01 PM [facility] REPOSITORY TYPE CODE TESTS RESULT OUT OF RANGE REFERENCE UNITS LAB L300.4150 11.7-14.9 SECONDS Normal PROTIME 12.7 LAB L300.4200 Normal INR 1.0 Performed By: #### L400.0001, L300.3900 #### [facility] [address] [place], [address] BASIC METABOLIC Collected: 06/21/2017 Status: F Source: [place] PROFILE (BMP) 3:01 PM [facility] REPOSITORY TYPE CODE TESTS RESULT OUT OF RANGE REFERENCE UNITS LAB L501.0100 74-106 mg/dL Normal GLU 88 Result Comment: Please note revised GLUCOSE reference range effective 2017. LAB L501.1000 7-18 mg/dL High BUN 20 LAB L501.1100 0.55-1.02 mg/dL Normal CREAT,SERUM 0.87 Result Comment: The validity of the calculated GFR AND GFRAA in patients over 70 years has not been determined. Clinical correlation is essential. LAB L501.1110 >60 mL/min Normal EST GFR 67 Result Comment: Non- GFR Calc LAB L501.1115 >60 mL/min Normal EST GFR - AA 81 Result Comment: GFR Calc LAB L501.1300 10-20 RATIO High BUN/CRE 22.9 LAB L501.2200 8.5-10.1 mg/dL CA Normal 9.0 LAB L501.5300 136-145 mmol/L NA Normal 137 LAB L501.5600 3.5-5.1 mmol/L K Normal 3.9 Result Comment: Slight Hemolysis, Result may be falsely increased. LAB L501.5900 98-107 mmol/L Normal CL 104 LAB L501.6100 21.0-32.0 mmol/L Normal CO2 26.0 LAB L501.6200 5-15 Normal 7 GAP Performed By: #### L500.2500 #### [facility] [address] [place], [address] STRESS REPORT Observed: 06/15/2017 Status: F Source: [facility] 9:25 AM [facility] REPOSITORY [facility] Cardiovascular Services [address] [place] [address] MR#: [id number] Acct: [id number] Name: PARVIN PATEL Rep #: [id number] : 1940 76 From: Brennan Fleming MD Primary Care: Diana Saravia MD Status: REG CLI Ordering Dr: Sex: [...] with a final blood pressure 130/68 mmHg. Myocardial perfusion protocol: 11.5 mCi of technetium 99m sestamibi was injected at rest. 0.4 mg of regadenoson was infused per usual protocol. At peak infusion 33.3 mCi of technetium 99m sestamibi was injected. Stress images were obtained. Stress and rest images were reconstructed and compared in the short axis vertical long and horizontal long axis. Gated images were also obtained. Perfusion SPECT analysis: Review of the stress images demonstrate normal uptake of tracer noted in all areas of the myocardium. The resting images similarly demonstrate normal uptake of tracer noted in all areas of the myocardium. No areas of reversibility are noted suggest ischemia no previous infarct is noted. Gated SPECT analysis: Gated ejection fraction is noted to be 68%. Conclusion: Normal pharmacologic myocardial perfusion stress test. Preserved ejection fraction 06/15/17924 <Electronically signed by Brennan Fleming MD> Date Brennan Fleming MD CC: Diana Saravia MD; Amna Vang Date Dictated: 06/15/17921 Date Transcribed: 06/15/17921 Cue Worker: CO Signed CARDIOLOGY VISIT Observed: 06/09/2017 Status: F Source: [facility] REPORT 6:00 PM [facility] REPOSITORY [facility] [address] [place] [address] OFFICE VISIT Date of Service: 06/08/17 MR#: [id number] Acct: [id number] Name: PARVIN PATEL Rep #: [id number] : 1940 Provider: Amna Vang Age/Sex: 76/F Location[place] [facility] [place] Status: Signed HPI HPI Details: PARVIN PATEL, is a 76 F who presents to the office today for an urgent cardiovascular appt for low HR readings. She has [...] with activity, this is new. She does not have any chest pain/heaviness/tightness. She is not [...] Height 5 ft 2 in 06/08/17 Weight: 161 lb 06/08/17 Body Mass Index (BMI) 29.4 06/08/17 Blood Pressure 120/60 Intake Visit Reasons: 6 M FU Is patient in pain?: No Allergies methocarbamol [From Robaxin] Allergy (Verified 06/08/17 10:53) Other procaine HCl [From Novocain] Allergy (Verified 06/08/17 10:53) Other Medications Calcium Carbonate [Calcium] 500 mg PO 12/16/14 [History Confirmed 06/08/17] Cholecalciferol (VIT D3) [Vitamin D] 1,000 unit PO DAILY 12/16/14 [History Confirmed 06/08/17] Flecainide [Tambocor] 100 mg PO BID 12/16/14 [History Confirmed 06/08/17] Minocycline [Minocin] 100 mg PO DAILY 12/16/14 [History Confirmed 06/08/17] Potassium Chloride [K-Dur] 20 meq PO DAILY [...] 59 (55% per echo 11/13/14) [facility] Medical History PSVT (paroxysmal supraventricular tachycardia) (Chronic) PAC (premature atrial contraction) (Chronic) HTN (hypertension) (Chronic) Sick sinus syndrome (Chronic) Hyperlipidemia (Chronic) Hypokalemia (Chronic) Paroxysmal atrial fibrillation (Chronic) Premature ventricular contractions (Chronic) Palpitations (Chronic) Near syncope (Chronic) Mitral valve prolapse (Chronic) Abnormal electrocardiogram (Chronic) Surgical History History of tonsillectomy (Chronic) Family History Mother [...] headache(s), weakness or excessive sweating Eyes Eyes: Positive for blurry vision; negative for double vision ENT ENT: Negative for balance problems, Positive for dizziness, Negative for headache(s) Cardio Chest Pain: No Palpitations: Positive for No and Yes (Feels heart going too slow and making her dizzy. Occasional fluttering sensation.) Edema: None Muscle aches with walking: None Resp Respiratory: Positive for SOB with activity; negative for SOB at rest, SOB orthopnea\SOB lying down, Coughing up blood/hemoptysis, chest congestion, pain on inspiration, snoring, stridor, wheezing, crackles, paroxysmal nocturnal dyspnea or other Additional Details: In last 5 months has not been able to be as active, had stress fracture in leg so not sure if deconditioning or something else. GI GI: Negative nausea, vomiting, heartburn, constipation, belching, bloating, cramping, vomiting blood/hematemesis, bright, red blood in stools, black,tarry stools, loose stools, Difficulty Swallowing or other Musc Musc: Negative for muscle aches/ myalgia, muscle weakness, joint pain or balance problems Neuro Neuro: Positive for dizziness, Positive for lightheadedness, Negative for near syncope, Negative for syncope, Negative for orthostatic symptoms, Negative for frequent falls, Negative for headache(s), Negative for weakness, Negative for confusion, Negative for memory loss, Negative for restless legs, Positive for blurry vision, Negative for double vision, Negative for vertigo, Negative for seizures, Negative for lack of [...] normal inspection of the chest and symmetric chest movement Auscultation: Bilateral: Clear to Auscultation Cardio [...] Bilateral Psych Psychological: normal affect Supplemental Info Echocardiogram in October of 2014 which demonstrated an ejection fraction of 55%. Mild valvular insufficiency. RVSP 30 mmHg. Stress test in January of 2015 was negative for ischemia at a moderate workload. Assessment AND Plan Problems 1. Sinus allan-tachy syndrome I49.5 2. Fatigue, unspecified type R53.83 3. Dyspnea on exertion R06.09 4. Paroxysmal atrial fibrillation I48.0 5. Mixed hyperlipidemia E78.2 6. Essential hypertension I10 Plan - WEN Yost In regards to patient's low heart rate, will see what Holter monitor demonstrated. Patient may need to discontinue her flecainide and her metoprolol altogether. Although I am [...] to obtain a stress test to evaluate for underlying ischemia. Patient's blood pressure is adequately controlled. Do not feel that we need to make any adjustments at this time. Unfortunately patient is not able to tolerate any statins due to significant myalgias. Did again talk about dietary modifications to assist with this. We will follow-up with patient closely after testing is completed. Orders Orders: Medications New: Discontinued: hydrocodone-acetaminophen 5-325 mg Discontinu1 - 2 tabs PO Q4H PRN PRN Pain Maria Guadalupe Martel ed Reason: Order Completed Plan Detail Additional Comments - WEN Yost The above patient was discussed with Dr. Young, he agrees with plan [...] to saving. Follow Up 3 Months (MMM) Coding Level of Care Code Off vis,est,level [...] Date (if applicable) Manoj Young MD CC: Diana Saravia MD ALLERGIES ALLERGIES DATE TYPE / CODE NAME / CODE REACTION SEVERITY SOURCE 12/16/2017 Drug procaine Other Unknown [facility] All[facility]/416 HCl/[id number]( [facility] [id number]([facility]) Repository ED CT) 12/16/2017 Drug methocarbamol/F Other Unknown [facility] All[facility]/416 [id number]([facility] [id number]([facility] M) Repository ED CT) ENCOUNTERS ENCOUNTERS ADMIT/DISCHARGE ACCOUNT ADMITTING ENCOUNTER LOCATION SOURCE NUMBER CLASS 05/05/2018 [id number] Ambulatory [facility] ing:NS Repository 04/15/2018 [id number] Ambulatory Building:[facility] Repository 04/04/2018/ [id number] Ambulatory Nataly [place] 8 0 [facility] ing:NS Repository 02/08/2018/ [id number] Ambulatory Nataly [place] 8 5 [facility] ing:NS Repository 01/21/2018 [id number] Ambulatory BMS Nataly 6 [facility] Repository 01/18/2018/ [id number] Ambulatory BMSBuilding:B [place] 8 3 [facility] Repository 01/12/2018/ [id number] Ambulatory Nataly [place] 8 5 [facility] ing:NS Repository 12/16/2017 [id number] Ambulatory BMSBuilding:B [place] 3 MS.CF.[facility] Repository 12/16/2017 [id number] Ambulatory Natal[place] 5 [facility] ing:CT Repository 12/01/2017/ [id number] Ambulatory BMSBuilding:B [place] 8 5 [facility] Repository 09/03/2017/ [id number] Ambulatory BMSBuilding:B Nataly 8 4 [facility] Repository 08/31/2017 [id number] Ambulatory BMS [place] 6 [facility] Repository 08/20/2017/ [id number] Ambulatory BMSBuilding:B Nataly 8 8 [facility] Repository 07/30/2017 [id number] Ambulatory [place] 8 [facility] ing:LABSPEC Repository 07/06/2017/ [id number] Ambulatory BMSBuilding:B Nataly 8 4 [facility] Repository 07/01/2017 [id number] Ambulatory BMSBuilding:B [place] 0 [facility] Repository 07/01/2017 [id number] Ambulatory BMSBuilding:B Nataly 9 [facility] Repository 06/29/2017 [id number] Ambulatory BMSBuilding:B [place] 6 [facility] Repository 06/29/2017 [id number] Ambulatory BMSBuilding:W [place] 2 [facility] Repository 06/28/2017/ [id number] Ambulatory Nataly [place] 8 8 [facility] ing:CLSPRoom: Repository [id number] 06/28/2017 [id number] Ambulatory BMSBuilding:W Nataly 0 [facility] Repository 06/21/2017 [id number] Ambulatory [place] Nataly 7 [facility] ing:LAB Repository 06/21/2017/ [id number] Ambulatory BMSBuilding:B [place] 8 1 [facility] Repository 06/21/2017/ [id number] Ambulatory BMSBuilding:B Nataly 8 9 [facility] Repository 06/15/2017 [id number] Ambulatory BMSBuilding:W Nataly 5 [facility] Repository 06/15/2017 [id number] Ambulatory Nataly Nataly 5 [facility] ing:CVS Repository 06/09/2017 [id number] Ambulatory BMSBuilding:W Nataly 3 [facility] Repository 06/09/2017 [id number] Ambulatory Nataly [place] 9 [facility] ing:PSN Repository 06/08/2017/ [id number] Ambulatory BMSBuilding:B Nataly 8 5 [facility] Repository 06/05/2017 [id number] Ambulatory BMSBuilding:B [place] 8 [facility] Repository PAYERS PAYERS ENCOUNTER GUARANTOR PAYER SUBSCRIBER SOURCE 05/05/2018 PARVIN Bean Primary Insurance:AETEDDIE Bean WEBBDOB: [place] [id number] [facility] Number: [id number] [facility] [address]Hij: 330) Date:8027-67-85MX BOX Repository [phone] (VL) [id number] MITCH BUCKNER [address]UD: 05/05/2018 Secondary NOT GIVENUNK Nataly Insurance:SELF PAY [facility] INSURANCEPolicy Number: Hospital Effective Repository Date:2018-04-19 04/15/2018 PARVIN Bean Primary Insurance:Aeteddie Bean [facility] WEBBDOB: Life Ins/MedicarePolicy [id number] Repository [id number] Number: [address] MEBFGBSHEffective RdRebecamelinda [place] RdWlindamelinda [place] Date:3143-18-10Uxon [address]28[address]Txc: [phone]: (330) Name:[id number] [phone] (HP) [phone] [place] [phone]: (HP)Tel: (WP) 04/15/2018 Secondary PARVIN E WEBBDOB: OHIP Practices Insurance:Medical [id number] Repository [place] [address] [address] Number: RdNataly [place] [id number] [id number]: Date: - 8274-54-04Bygu ~(3 Name:[address] (HP) [address]Duuggeipf, [place] [id number]: 04/15/2018 Tertiary PARVIN E WEBBDOB: [place]IP Practices Insurance:Medical [id number] Repository [facility] [address] AdvPolicy Number: CoryRebecamelinda [place] [id number] [address]Yoj: Date: - 4474-93-36Kqcq ~(3 Name:OREMAN [address] (HP) [address], [place] [phone]: 04/15/2018 Tertiary PARVIN E WEBBDOB: OHIP Practices Insurance:[employer] Life [id number] Repository [facility]/MedicarePolicy [address] Number: FRANCO Jama [id number]: Date:2008-04-19 - ~(3 [id number] Name:FP 30 (HP) [address] [place] [id number]: 04/15/2018 Tertiary PARVIN E WEBBDOB: [place]IP Practices Insurance:TRANS [id number] Repository RXPolicy Number: [address] Effective Date:[place], [place] Name:F [id number]: ~(5 30 (HP) 04/04/2018 PARVIN E Primary Insurance:AETNA PARVIN E WEBBDOB: Nataly [id number] [facility] HMOPolicy Number: [id number] [facility]roomfield Hospital [address]Znx: (330) Date:6017-08-50MB BOX Repository [phone] (HP) [phone], [place] [address]QN: 04/04/2018 Secondary NOT GIVENUNK Nataly Insurance:SELF PAY Community INSURANCEPolicy Number: Hospital Effective Repository Date:2018-02-17 02/08/2018 PARVIN E Primary Insurance:AETNA PARVIN E WEBBDOB: [place] [id number] [facility] Number: [id number] Broomfield Hospital [address]Jkd: (330) Date:3823-30-98VH BOX Repository [phone] (HP) 719153XMFROSTPROOF, [place] [address]RY: 02/08/2018 Secondary NOT GIVENUNK [place] Insurance:SELF PAY Community INSURANCEPolicy Number: Hospital Effective Repository Date:2018-01-17 01/21/2018 PARVIN E Primary Insurance:AETNA PARVIN E WEBBDOB: [place] [id number] [facility] Number: [id number] Regional [facility] [address]Umq: (330) Date:3059-20-47HQ BOX Repository [phone] (HP) [id number], [place] [address]UW: 01/21/2018 Secondary NOT GIVENUNK Nataly Insurance:SELF PAY Community INSURANCEPolicy Number: Hospital Effective Repository Date:2018-01-21 01/18/2018 PARVIN E Primary Insurance:AETNA PARVIN E WEBBDOB: Nataly [id number] [facility] HMOPolicy Number: [id number] Broomfield Hospital [address]Smh: (330) Date:7764-82-39EB BOX Repository [phone] (HP) [id number] MITCH BUCKNER [address]RD: 01/18/2018 Secondary NOT GIVENUNK [place] Insurance:SELF PAY Community INSURANCEPolicy Number: Hospital Effective Repository Date:2018-01-18 01/12/2018 PARVIN E Primary Insurance:AETNA PARVIN E WEBBDOB: Nataly [id number] [address] [facility] Number: [id number] [facility] HospitalGBEffective [facility] [address]Wja: (330) Date:7490-88-36BV BOX Repository [phone] (HP) [id number] MITCH BUCKNER [address]PZ: 01/12/2018 Secondary NOT GIVENUNK [place] Insurance:SELF PAY Community INSURANCEPolicy Number: Hospital Effective Repository Date:2017-12-29 12/16/2017 PARVIN E Primary Insurance:[facility] PARVIN E WEBBDOB: [place] [id number] RID[address] PACKAGE PLANPolicy [id number] [place] Number: Hospital [id number]: (330) [id number] Repository [phone] () Date:2017-12-06 12/16/2017 Secondary NOT GIVENUNK Nataly Insurance:SELF PAY Community INSURANCEPolicy Number: Hospital Effective Repository Date:2017-12-16 12/16/2017 PARVIN E Primary Insurance:AETNA PARVIN E WEBBDOB: [place] [id number] [address] [facility] Number: [id number] [facility] HospitalGBPenn Presbyterian Medical Centerfective [facility] [address]Kcq: (330) Date:3204-82-54KU BOX Repository [phone] (HP) [id number] MITCH BUCKNER [address]TJ: 12/16/2017 Secondary Insurance:[facility] PARVIN E WEBBDOB: Nataly PACKAGE PLANPolicy [id number] Community Number: Hospital [id number] Repository Date:2017-12-06 12/16/2017 Tertiary Insurance:SELF NOT GIVENUNK [place] PAY INSURANCEPolicy Community Number: Effective Hospital Date:2017-12-06 Repository 12/01/2017 PARVIN E Primary Insurance:AETNA PARVIN E WEBBDOB: [place] [id number] [facility] HMOPolicy Number: [id number] Broomfield Hospital [address]Qij: (330) Date:0592-85-45HV BOX Repository [phone] (HP) [id number] [place] [place] [address]HG: 12/01/2017 Secondary NOT GIVENUNK Nataly Insurance:SELF PAY Community INSURANCEPolicy Number: Hospital Effective Repository Date:2017-12-01 09/03/2017 PARVIN E Primary Insurance:AETNA PARVIN E WEBBDOB: Nataly [id number] [facility] HMOPolicy Number: [id number] Broomfield Hospital [address]Yei: (330) Date:5620-78-26RA BOX Repository [phone] (HP) [id number] [place] [address]TL: 09/03/2017 Secondary NOT GIVENUNK [place] Insurance:SELF PAY Community INSURANCEPolicy Number: Hospital Effective Repository Date:2017-09-03 08/31/2017 PARVIN E Primary Insurance:AETNA PARVIN E WEBBDOB: Nataly [id number] [facility] HMOPolicy Number: [id number] Valley Regional Medical Center [address]Gvv: (330) Date:4549-09-84DZ BOX Repository [phone] (HP) [id number] [place] [address]OT: 08/31/2017 Secondary NOT GIVENUNK [place] Insurance:SELF PAY Community INSURANCEPolicy Number: Hospital Effective Repository Date:2017-08-31 08/20/2017 PARVIN E Primary Insurance:AETNA PARVIN E WEBBDOB: Nataly [id number] [facility] HMOPolicy Number: [id number] Valley Regional Medical Center [address]Ode: (330) Date:6067-29-24NS BOX Repository [phone] (HP) 630989QEMITCH BELLO [address]LY: 08/20/2017 Secondary NOT GIVENUNK Nataly Insurance:SELF PAY Community INSURANCEPolicy Number: Hospital Effective Repository Date:2017-08-20 07/30/2017 PARVIN E Primary Insurance:AETNA PARVIN E WEBBDOB: [place] [id number] R[facility] [facility] HMOPolicy Number: [id number] [place] [address]Eip: (330) Date:8222-61-11GJ BOX Repository [phone] (HP) [id number] [place] [address]PT: 07/30/2017 Secondary NOT GIVENUNK Nataly Insurance:SELF PAY Community INSURANCEPolicy Number: Hospital Effective Repository Date:2017-07-30 07/06/2017 PARVIN E Primary Insurance:AETNA PARVIN E WEBBDOB: Nataly [id number] [facility] HMOPolicy Number: [id number] [place] [address]Dle: (330) Date:2437-82-70JO BOX Repository [phone] (HP) 649578ATMITCH BELLO [address]GX: 07/06/2017 Secondary NOT GIVENUNK Nataly Insurance:SELF PAY Community INSURANCEPolicy Number: Hospital Effective Repository Date:2017-06-25 07/01/2017 PARVIN E Primary Insurance:AETNA PARVIN E WEBBDOB: Nataly [id number] [facility] HMOPolicy Number: [id number] [place] [address]Yqq: (330) Date:4631-92-97PM BOX Repository [phone] (HP) [id number] [place] [address]DR: 07/01/2017 Secondary NOT GIVENUNK [place] Insurance:SELF PAY Community INSURANCEPolicy Number: Hospital Effective Repository Date:2017-06-19 07/01/2017 PARVIN E Primary Insurance:AETNA PARVIN E WEBBDOB: [place] [id number] R[facility] HMOPolicy Number: [id number] [facility] [address]Ulh: (330) Date:8056-63-87MF BOX Repository [phone] (HP) [id number] [place] [address]IT: 07/01/2017 Secondary NOT GIVENUNK [place] Insurance:SELF PAY Community INSURANCEPolicy Number: Hospital Effective Repository Date:2017-06-19 06/29/2017 PARVIN E Primary Insurance:AETNA PARVIN E WEBBDOB: [place] [id number] [facility] HMOPolicy Number: [id number] [facility] [address]Csq: (330) Date:5726-22-94XR BOX Repository [phone] (HP) [id number] [place] [address]LS: 06/29/2017 Secondary NOT GIVENUNK Nataly Insurance:SELF PAY Community INSURANCEPolicy Number: Hospital Effective Repository Date:2017-06-29 06/29/2017 PARVIN E Primary Insurance:AETNA PARVIN E WEBBDOB: [place] [id number] [facility] HMOPolicy Number: [id number] [facility] [address]69[address]Rur: (330) Date:3502-32-26JS BOX Repository [phone] (HP) [id number] [place] [address]ZL: 06/29/2017 Secondary NOT GIVENUNK [place] Insurance:SELF PAY Community INSURANCEPolicy Number: Hospital Effective Repository Date:2017-06-29 06/28/2017 PARVIN E Primary Insurance:AETNA PARVIN E WEBBDOB: Nataly [id number] [facility] HMOPolicy Number: [id number] [facility] [address]Zca: (330) Date:1878-76-07XD BOX Repository [phone] (HP) [id number] [place] [address]AF: 06/28/2017 Secondary NOT GIVENUNK [place] Insurance:SELF PAY Community INSURANCEPolicy Number: Hospital Effective Repository Date:2017-06-16 06/28/2017 PARVIN E Primary Insurance:AETNA PARVIN E WEBBDOB: Nataly [id number] [facility] HMOPolicy Number: [id number] Valley Regional Medical Center [address]Joc: (330) Date:4073-01-52EK BOX Repository [phone] (HP) [id number] [place] [address]PC: 06/28/2017 Secondary NOT GIVENUNK [place] Insurance:SELF PAY Community INSURANCEPolicy Number: Hospital Effective Repository Date:2017-06-28 06/21/2017 PARVIN E Primary Insurance:AETNA PARVIN E WEBBDOB: [place] [id number] [facility] Number: [id number] [place] [address]Ofn: (330) Date:6854-36-46OG BOX Repository [phone] (HP) [id number] [place] [address]HM: 06/21/2017 Secondary NOT GIVENUNK Nataly Insurance:SELF PAY Community INSURANCEPolicy Number: Hospital Effective Repository Date:2017-06-21 06/21/2017 PARVIN E Primary Insurance:AETNA PARVIN E WEBBDOB: Nataly [id number] [facility] Number: [id number] [place] [address]Bhx: (330) Date:7433-66-53GX BOX Repository [phone] (HP) [id number] [place] [address]QT: 06/21/2017 Secondary NOT GIVENUNK [place] Insurance:SELF PAY Community INSURANCEPolicy Number: Hospital Effective Repository Date:2017-06-19 06/21/2017 PARVIN E Primary Insurance:AETNA PARVIN E WEBBDOB: [place] [id number] [facility] HMOPolicy Number: [id number] [place] [address]Ycc: (330) Date:0297-35-03AG BOX Repository [phone] (HP) [id number] MITCH [place]CKNER [address]EF: 06/21/2017 Secondary NOT GIVENUNK [place] Insurance:SELF PAY Community INSURANCEPolicy Number: Hospital Effective Repository Date:2017-06-16 06/15/2017 PARVIN E Primary Insurance:AETNA PARVIN E WEBBDOB: Nataly [id number] [facility] HMOPolicy Number: [id number] [place] [address]Bde: (330) Date:3248-91-94NW BOX Repository [phone] (HP) 405976XKMITCH BELLO [address]MF: 06/15/2017 Secondary NOT GIVENUNK Nataly Insurance:SELF PAY Community INSURANCEPolicy Number: Hospital Effective Repository Date:2017-06-15 06/15/2017 PARVIN E Primary Insurance:AETNA PARVIN E WEBBDOB: Nataly [id number] [facility] HMOPolicy Number: [id number] [place] [address]Sdb: (330) Date:3265-19-38LV BOX Repository [phone] (HP) 134252UQMITCH BELLO [address]UB: 06/15/2017 Secondary NOT GIVENUNK [place] Insurance:SELF PAY Community INSURANCEPolicy Number: Hospital Effective Repository Date:2017-06-09 06/09/2017 PARVIN E Primary Insurance:AETNA PARVIN E WEBBDOB: [place] [id number] [facility] HMOPolicy Number: [id number] [place] [address]Srf: (330) Date:0737-49-33GK BOX Repository [phone] (HP) 959317EYMITCH BELLO [address]ZD: 06/09/2017 Secondary NOT GIVENUNK [place] Insurance:SELF PAY Community INSURANCEPolicy Number: Hospital Effective Repository Date:2017-06-09 06/09/2017 PARVIN E Primary Insurance:AETNA PARVIN E WEBBDOB: Nataly [id number] [facility] HMOPolicy Number: [id number] [facility] [address]Xpa: (330) Date:9541-86-32FA BOX Repository [phone] (HP) 320806OEMITCH [place]LLO [address]IU: 06/09/2017 Secondary NOT GIVENUNK [place] Insurance:SELF PAY Community INSURANCEPolicy Number: Hospital Effective Repository Date:2017-06-04 06/08/2017 PARVIN E Primary Insurance:AETNA PARVIN E WEBBDOB: Nataly [id number] [facility] Number: [id number] [place] [address]Mot: (330) Date:1191-82-65FN BOX Repository [phone] (HP) 465083MGMITCH BELLO [address]MF: 06/08/2017 Secondary NOT GIVENUNK Nataly Insurance:SELF PAY Community INSURANCEPolicy Number: Hospital Effective Repository Date:2017-03-24 06/05/2017 Parvin E Primary Insurance:AETNA Parvin E WebbDOB: Nataly [id number] [facility] HMOPolicy Number: [id number] [facility] [address]Gul: (330) Date:5480-12-42IA BOX Repository [phone] (HP) 135798JZIMTCH [place] [address]IH: 06/05/2017 Secondary NOT GIVENUNK [place] Insurance:SELF PAY Community INSURANCEPolicy Number: Hospital Effective Repository Date:2017-06-05
== END 2018-04-18 23:59 ==
LOC: NS 15:44
PROVIDERS: Family Provider Internal Medicine; PCP Internal Medicine; Visit Provider Internal Medicine
DX: E78.1 Pure hyperglyceridemia (principal); E66.9 Obesity, unspecified; Z68.29 Body mass index [BMI] 29.0-29.9, adult; Z71.3 Dietary counseling and surveillance
CPT/HCPCS: 97803

== ENCOUNTER 2018-05-19 11:00 | Outpatient (RCR) | payer MEDICARE, SELFPAY | END 2018-05-19 23:59 | LOC: NS 11:00 | PROVIDERS: Family Provider Internal Medicine; PCP Internal Medicine; Visit Provider Internal Medicine | DX: E78.1 Pure hyperglyceridemia (principal); E66.9 Obesity, unspecified; Z68.29 Body mass index [BMI] 29.0-29.9, adult; Z71.3 Dietary counseling and surveillance | CPT/HCPCS: 97803 ==

== ENCOUNTER → 2018-05-31 14:33 | Outpatient (CLI) | payer MEDICARE, SELFPAY ==
--- NOTE | 2018-05-31 14:36 | BI_ITS ---
MAMMOGRAPHY - BILATERAL SCREENING REASON FOR EXAM: Female, 77 years old. Routine annual screening examination. PERTINENT HISTORY: Non-contributory. TECHNIQUE: Digital bilateral breast danyel (3D mammographic acquisition) in the CC and MLO projections. 2-D mediolateral oblique (MLO) and craniocaudad (CC) views of both breasts were obtained. CAD: Full Field Digital Mammography with Computer Added Detection was performed. COMPARISON: Comparison is made with prior study dated March 02, 2017 and January 22, 2016. FINDINGS: Breast Composition: There are scattered areas of fibroglandular density. There are no dominant masses or suspicious calcifications. A battery pack from a pacemaker device is seen in the axillary region of the left breast. No other significant abnormalities are identified. There has been no significant change since the prior study. BI/SCREENING MAMM (CAD), BILAT IMPRESSION: Stable bilateral screening mammogram. Yearly follow-up mammogram recommended. (A) ASSESSMENT CATEGORY: BIRADS Category 2: Benign. A letter regarding these results will be sent to the patient by the facility within 30 days. Approximately 10% of breast cancers are not detected by mammography. A normal mammogram should not delay biopsy of a clinically suspicious abnormality. [id number] Electronically Signed: Archie Caceres MD at 8:41 EST , Service support ,
== END ==
PROVIDERS: Family Provider Internal Medicine; PCP Internal Medicine; Referring Provider Internal Medicine; Visit Provider Internal Medicine
DX: Z12.31 Encounter for screening mammogram for malignant neoplasm of breast (principal)
CPT/HCPCS: 77063; 77067

== ENCOUNTER 2018-06-16 14:30 | Outpatient (RCR) | payer MEDICARE, SELFPAY | END 2018-06-16 23:59 | LOC: NS 14:30 | PROVIDERS: Family Provider Internal Medicine; PCP Internal Medicine; Visit Provider Internal Medicine | DX: E78.1 Pure hyperglyceridemia (principal); E66.9 Obesity, unspecified; Z68.29 Body mass index [BMI] 29.0-29.9, adult; Z71.3 Dietary counseling and surveillance | CPT/HCPCS: 97803 ==

== ENCOUNTER 2018-07-05 11:34 | Outpatient (RCR) | payer MEDICARE, SELFPAY | END 2018-07-05 23:59 | disposition home or self-care (01) | LOC: NS 11:34 | PROVIDERS: Family Provider Internal Medicine; PCP Internal Medicine; Visit Provider Internal Medicine | DX: E78.1 Pure hyperglyceridemia (principal); E66.9 Obesity, unspecified; Z68.29 Body mass index [BMI] 29.0-29.9, adult; Z71.3 Dietary counseling and surveillance | CPT/HCPCS: 97803 ==

== ENCOUNTER → 2018-09-21 | Outpatient (CLI) | payer MEDICARE, SELFPAY ==
--- NOTE | 2018-09-21 13:45 | RAD_ITS ---
STUDY: X-RAY - LEFT WRIST REASON FOR EXAM: Female, 77 years old. History of fall. TECHNIQUE: 3 view(s) of the wrist were obtained. COMPARISON: None. FINDINGS: Normal visualized distal radius and ulna. There is degenerative arthrosis of the radiocarpal articulation. Degenerative changes of the ulnar styloid. Normal distal radioulnar articulation. There is evidence of an avulsion fracture of the triquetrum. Normal carpal articulations. Normal carpometacarpal articulation of the thumb. Normal second through fifth carpometacarpal articulations. Normal visualized metacarpal bones. Soft tissue swelling. RAD/Wrist min 3 Views IMPRESSION: Soft tissue swelling. Avulsion fracture of the triquetrum. Electronically Signed: Archie Caceres, at 14:12 EDT , Service support ,
== END | disposition home or self-care (01) ==
PROVIDERS: Family Provider Internal Medicine; PCP Internal Medicine; Referring Provider Internal Medicine; Visit Provider Internal Medicine
DX: M25.532 Pain in left wrist (principal)
CPT/HCPCS: 73110

== ENCOUNTER → 2019-01-04 08:55 | Outpatient (CLI) | payer MEDICARE, SELFPAY ==
[2018-09-26 10:33] VITALS: BMI 28.5
--- NOTE | 2019-01-04 08:59 | RAD_ITS ---
STUDY: X-RAY - RIGHT KNEE REASON FOR EXAM: Female, 78 years old. Pain. No known injury. TECHNIQUE: 2 view(s) of the knee. COMPARISON: Comparison is made to prior examination dated April 09, 2014. FINDINGS: Normal visualized distal femur. Normal visualized proximal tibia and fibula. Normal proximal tibiofibular articulation. There is mild degenerative arthrosis of the medial femorotibial compartment. Normal lateral femorotibial compartment. Normal patellofemoral articulation. Degenerative spur along the superior anterior aspect of the patella. There are atherosclerotic calcifications. RAD/Knee 4 or More Views IMPRESSION: Degenerative arthrosis. Electronically Signed: Archie Caceres, at 9:26 EDT , Service support ,
--- NOTE | 2019-01-04 10:01 | VDLE_ITS ---
Reason For Study: pain RIGHT GSV is normal. CFV is compressible, spontaneous, phasic, competent and demonstrates normal augmentation. FV is compressible, spontaneous, phasic, competent and demonstrates normal augmentation. POP V is compressible, spontaneous, phasic, competent and demonstrates normal augmentation. T/P Trunk is compressible. PTV is compressible. RT PerV is compressible. Procedure Exam performed in department. A preliminary report was called and/or faxed to Dr Saravia. Interpretation Summary Deep veins of the right lower extremity are patent and compressible segmentally. There is no evidence of right lower extremity deep vein thrombosis. Valvular competence appears intact within the proximal deep venous system on the right . The right great saphenous vein appears patent and compressible segmentally. Ordering Physician: Diana Saravia Referring Physician: Diana Saravia Performed By: Rena Epps, VANITA, RVT
== END ==
PROVIDERS: Family Provider Internal Medicine; PCP Internal Medicine; Referring Provider Internal Medicine; Visit Provider Internal Medicine
DX: M79.604 Pain in right leg (principal)
CPT/HCPCS: 73560; 73564; 93971

== ENCOUNTER → 2019-02-03 15:11 | Outpatient (CLI) | payer MEDICARE, SELFPAY ==
[2018-09-26 10:33] VITALS: BMI 28.5
--- NOTE | 2019-02-03 15:16 | RAD_ITS ---
STUDY: X-RAY - SKULL REASON FOR EXAM: Female, 78 years old. History of fall. TECHNIQUE: 4 view(s) of the skull were obtained. COMPARISON: None. FINDINGS: There is no demonstrated soft tissue swelling. Normal osseous calvarium. Normal visualized facial bones. Partial opacification of the right maxillary sinus. RAD/Skull min 4 Views IMPRESSION: Normal x-ray examination of the skull. Electronically Signed: Archie Caceres, at 15:45 EDT , Service support ,
--- NOTE | 2019-02-03 15:16 | RAD_ITS ---
STUDY: X-RAY - NASAL BONES REASON FOR EXAM: Female, 78 years old. Facial injury due to a fall. TECHNIQUE: 3 view(s) of the nasal bones. COMPARISON: None. FINDINGS: Normal nasal bones. Normal anterior nasal spine. There is no demonstrated soft tissue swelling. The remaining visualized osseous structures are normal. The right maxillary sinus is smaller than the right. I suspect chronic right maxillary sinusitis. RAD/Nasal Bones min 3 Views IMPRESSION: No fracture is seen. Electronically Signed: Archie Caceres, at 15:44 EDT , Service support ,
== END ==
PROVIDERS: Family Provider Internal Medicine; PCP Internal Medicine; Referring Provider Internal Medicine; Visit Provider Internal Medicine
DX: S09.8XXA Other specified injuries of head, initial encounter (principal)
CPT/HCPCS: 70160; 70260

== ENCOUNTER → 2019-06-05 11:18 | Outpatient (CLI) | payer MEDICARE, SELFPAY ==
[2019-03-29 10:08] VITALS: BMI 28.1
--- NOTE | 2019-06-05 11:25 | BI_ITS ---
MAMMOGRAPHY - BILATERAL SCREENING REASON FOR EXAM: Female, 78 years old. Routine annual screening examination. PERTINENT HISTORY: Non-contributory. TECHNIQUE: Digital bilateral breast hannah (3D mammographic acquisition) in the CC and MLO projections. 2-D mediolateral oblique (MLO) and craniocaudad (CC) views of both breasts were obtained. CAD: Full Field Digital Mammography with Computer Added Detection was performed. COMPARISON: Comparison is made with prior study dated May 31, 2018 and March 02, 2017. FINDINGS: Breast Composition: There are scattered areas of fibroglandular density. There are no dominant masses or suspicious calcifications. A pacemaker battery pack is seen in the axillary region of the left breast. No other significant abnormalities are identified. There has been no significant change since the prior study. BI/SCREEN MAMM (CAD) W/HANNAH BILAT IMPRESSION: Stable bilateral screening mammogram. Yearly follow-up mammogram recommended. (A) ASSESSMENT CATEGORY: BIRADS Category 2: Benign. A letter regarding these results will be sent to the patient by the facility within 30 days. Approximately 10% of breast cancers are not detected by mammography. A normal mammogram should not delay biopsy of a clinically suspicious abnormality. [id number] Electronically Signed: Archie Caceres, at 12:18 EST , Service support ,
== END ==
PROVIDERS: PCP Internal Medicine; Referring Provider Internal Medicine; Visit Provider Internal Medicine
DX: Z12.31 Encounter for screening mammogram for malignant neoplasm of breast (principal)
CPT/HCPCS: 77063; 77067

== ENCOUNTER → 2019-10-12 11:33 | Outpatient (CLI) | payer MEDICARE, SELFPAY ==
[2019-03-29 10:08] VITALS: BMI 28.1
--- NOTE | 2019-10-12 11:45 | RAD_ITS ---
STUDY: X-RAY CHEST REASON FOR EXAM: Female, 78 years old. NO CHEST COMPLAINTS- STARTING NEW MEDS FOR RA TECHNIQUE: PA and lateral views of the chest. COMPARISON: 06/29/2017 FINDINGS: Stable appearance of a left subclavian pacemaker The lungs are clear and expanded. There is no demonstrated pleural abnormality. Normal size heart. Normal mediastinum and glenys. Normal visualized pulmonary arteries. There is atherosclerotic calcification of the aortic arch with tortuosity. Normal visualized thoracic spine. Normal visualized ribs, clavicles, and shoulders. There is no demonstrated abnormality of the visualized soft tissue structures of the upper abdomen. RAD/Chest PA and Lateral IMPRESSION: No acute pulmonary process, no interval change Electronically Signed: Jorge Waters MD at 12:07 EDT , Service support ,
== END ==
PROVIDERS: PCP Internal Medicine; Referring Provider Internal Medicine Rheumatology; Visit Provider Internal Medicine Rheumatology
DX: M05.79 Rheumatoid arthritis with rheumatoid factor of multiple sites without organ or systems involvement (principal)
CPT/HCPCS: 71046

== ENCOUNTER → 2020-01-11 09:59 | Outpatient (CLI) | payer MEDICARE, SELFPAY ==
[2020-01-01 14:38] VITALS: BMI 28.1
--- NOTE | 2020-01-11 10:01 | ART_ITS ---
Reason For Study: claudication, PVD Procedure A bilateral lower extremity continuous wave Doppler with analog waveform analysis,segmental pressures,and ankle brachial indexes without exercise. Left Segmental Pressures Left brachial= 179mmHg. Left thigh = 134mmHg. Left calf = 111mmHg. Left posterior tibial artery = 73mmHg. Left dorsalis pedis artery = 93mmHg. The left dorsalis pedis waveforms are monophasic. The left posterior tibial artery waveforms are monophasic. Right Segmental Pressures Right brachial= 179mmHg. Right thigh = 171mmHg. Right calf = 151mmHg. Right posterior tibial artery = 141mmHg. Right dorsalis pedis artery = 139mmHg. The right dorsalis pedis waveforms are biphasic. The right posterior tibial artery waveforms are biphasic. Indices The right ankle brachial index by the dorsalis pedis is .78. The right ankle brachial index by the posterior tibial artery is .79. The left ankle brachial index by the dorsalis pedis is .52. The left ankle brachial index by the posterior tibial artery is .41. 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 Ordering Physician: Manoj Young Performed By: SAEED ALBA T
== END ==
PROVIDERS: PCP Internal Medicine; Referring Provider Internal Medicine Cardiovascular Disease; Visit Provider Internal Medicine Cardiovascular Disease
DX: I73.9 Peripheral vascular disease, unspecified (principal)
CPT/HCPCS: 93923

== ENCOUNTER → 2020-03-18 10:46 | Outpatient (CLI) | payer MEDICARE, SELFPAY ==
[2020-01-01 14:38] VITALS: BMI 28.1
--- NOTE | 2020-03-18 10:50 | CDU_ITS ---
Reason For Study: CAROTID STENOSIS Rt. Velocities/BP Lt. Velocities/BP Prox CCA 62.5/12.9 cm/sec. Prox CCA 79.0/10.9 cm/sec. Mid CCA 62.5/14.2 cm/sec. Mid CCA 75.7/18.6 cm/sec. Dist CCA 66.4/15.5 cm/sec. Dist CCA 63.6/16.4 cm/sec. Prox ICA 98.1/20.8 cm/sec. Prox ICA 59.2/15.3 cm/sec. Mid ICA 83.4/25.7 cm/sec. Mid ICA 121.6/37.6 cm/sec. Dist ICA 82.2/22.0 cm/sec. Dist ICA 156.3/35.8 cm/sec. Rt. ICA/CCA = 98.1/66.4=1.5. Lt. ICA/CCA = 156.3/79.0=2.0. Prox ECA 138.1/8.4 cm/sec. Prox ECA 80.1/9.8 cm/sec. Rt. Vert. 59.2/15.3 cm/sec. Lt. Vert. 83.0/13.0 cm/sec. Right Extracranial There is heterogeneous, irregular atherosclerotic plaque noted in the right common carotid artery. There is heterogeneous, irregular atherosclerotic plaque noted in the right internal carotid artery. There is heterogeneous, irregular atherosclerotic plaque noted in the right external carotid artery. Antegrade flow is noted in the right vertebral artery. Left Extracranial There is homogeneous, smooth atherosclerotic plaque noted in the left common carotid artery. There is heterogeneous, irregular atherosclerotic plaque noted in the left internal carotid artery. The tortuous nature of the left internal carotid artery may result in flow velocities overestimating the degree of stenosis. There is intimal thickening but no significant atherosclerotic plaque noted in the left external carotid artery. Antegrade flow is noted in the left vertebral artery. Procedure Carotid Duplex [id number]. The exam was diagnostic. Exam performed in department. Interpretation Summary Mild (<50%) stenosis right extracranial internal carotid. Moderate (50-69%) stenosis left extracranial internal carotid. Flow within the vertebral arteries is antegrade bilaterally. Ordering Physician: Diana Saravia Referring Physician: Diana Saravia Performed By: Lindsay Cardenas, VANITA, RVT
== END ==
PROVIDERS: PCP Internal Medicine; Referring Provider Internal Medicine; Visit Provider Internal Medicine
DX: I65.23 Occlusion and stenosis of bilateral carotid arteries (principal)
CPT/HCPCS: 93880

== ENCOUNTER 2020-03-26 20:37 | Emergency (ER) | payer MEDICARE, SELFPAY ==
[2020-03-25 12:58] VITALS: BMI 29.7
[2020-03-26 20:37] VITALS: BP 187/92; PULSE 71; RESP 16; TEMP 34.9; O2SAT 97; BMI 29.2
--- NOTE | 2020-03-26 21:00 | RAD_ITS ---
STUDY: X-RAY CHEST REASON FOR EXAM: Female, 79 years old. HYPERTENSION. TECHNIQUE: Single frontal view of the chest. COMPARISON: 10/12/2019 FINDINGS: There is no new focal consolidation. There is a stable calcification projecting over the right lung apex. There is a dual-lead cardiac pacer device in place. Normal size heart. Normal mediastinum and glenys. Normal visualized pulmonary arteries. There is atherosclerotic calcification of the aortic arch with tortuosity. Normal visualized thoracic spine. Normal visualized ribs, clavicles, and shoulders. There is no demonstrated abnormality of the visualized soft tissue structures of the upper abdomen. RAD/Chest 1 View (Portable) IMPRESSION: Stable examination demonstrating no acute cardiopulmonary process. Electronically Signed: Gunjan Gonzalez MD at 21:28 EST Tel , Service support ,
[2020-03-26 21:17] LABS: Absolute Lymphocyte Count 3.22 X10^3/uL (0.83-4.51); Absolute Neutrophil Count 4.7 X10^3/uL (2.0-7.7); Basophil# 0.05 X10^3/uL; Basophil% 0.6 % (0-1); Eosinophil# 0.23 X10^3/uL; Eosinophils% 2.6 % (0-5); Hematocrit 45.6 % (37-47); Hemoglobin 16.4 g/dL (12.0-15.0); Lymphocyte # 3.22 X10^3/ul (4.0); Lymphocyte % 35.8 % (19-41); Mean Corpuscular Volume 88.9 fL (81-99); Mean Platelet Vol. 9.9 fl (6.2-12.0); Monocyte# 0.74 X10^3/uL; Monocyte% 8.2 % (0-10); NRBC Flagged by Analyzer 0 % (0-5); Neutrophil # 4.74 X10^3/uL (2.7-7.7); Neutrophil % 52.6 % (47-70); Platelet Count 226 K/mm3 (150-450); RBC Distribution Width CV 13.2 % (11.6-14.6); RBC Distribution Width SD 43.1 fl (35.1-43.9); Red Blood Count 5.13 M/mm3 (4.2-5.4)
[2020-03-26 21:33] VITALS: BP 203/73; PULSE 60; RESP 18; O2SAT 93
[2020-03-26 21:35] LABS: ALB/GLOB Ratio 1.2 RATIO (0.9-2.4); AST(SGOT) 54 U/L (15-37); Alanine Aminotransfer ALT/SGPT 89 U/L (13-56); Albumin, Serum 4.3 g/dL (3.2-5.0); Alkaline Phosphatase 120 U/L (45-117); Anion Gap 7 (5-15); BUN 17 mg/dL (7-18); BUN/Creat Ratio 19.5 RATIO (10-20); Calcium,Total 11.2 mg/dL (8.5-10.1); Chloride 102 mmol/L (98-107); Creatinine, Serum 0.87 mg/dL (0.55-1.02); EST Glomerular Filtration Rate 67 mL/min (>60); Est Glom Filt Rate - Afr Amer 81 mL/min (>60); Estimated Creatinine Clearance 42.15 ml/min; Globulin 3.6 g/dL (2.2-4.2); Glucose 130 mg/dL (74-106); Potassium 3.9 mmol/L (3.5-5.1); Protein, Total 7.9 g/dL (6.4-8.2); Sodium Level 138 mmol/L (136-145)
[2020-03-26] MEDS: hydrALAZINE 20 MG/ML Vial 10 MG IV (22:41)
[2020-03-26] MEDS: 0.9% Normal Saline 1,000 ML 999 ML IV (22:41)
--- NOTE | 2020-03-26 22:47 | ED.VIS.GEN ---
History of Present Illness Chief Complaint: Hypertension Narrative: Patient presents with asymptomatic hypertension. She was sent by her PCP. Her blood pressure has been systolic in the 200s but diastolic in the 80s. She has no headache chest pain shortness of breath fevers or chills she has no neurological symptoms blurred vision or dizziness. Past Medical History - Allergies and Home Meds Allergies/Adverse Reactions: Allergies methocarbamol [From Robaxin] Allergy (Verified 03/26/20 20:39) Other procaine HCl [From Novocain] Allergy (Verified 03/26/20 20:39) Other Primary Care Physician: Diana Saravia MD [Primary Care Provider] - Past Medical History: - - Hypertension Smoking Status: Former smoker Review of Systems All systems negative except as indicated General: Denies: Fever Eyes: Denies: Visual changes - bilaterally Cardiovascular: Denies: Chest pain, Palpitations Respiratory: Denies: Dyspnea, Cough, Sputum Gastrointestinal: Denies: Abdominal pain, Nausea Genitourinary: Denies: Dysuria Musculoskeletal: Denies: Myalgias, Arthralgias Skin: Denies: Rash Neurological: Denies: Headache, Weakness Physical Exam Vital Signs/Narrative: Vital Signs Temp Pulse Resp BP Pulse Ox 03/26/20 21:33 60 18 203/73 H 93 03/26/20 20:37 94.8 F L 71 16 187/92 H 97 General: Well nourished, Well developed Eyes: Perrl ENT: Dry mucous membranes Neck: Supple Cardiovascular: Regular rate, Regular rhythm Respiratory: No distress, CTA bilaterally Abdomen: Soft, Nontender Back: Nontender, Normal Inspection Extremities: Nontender Skin: Normal color Neurological: Alert, Normal Strength, Normal Sensation Psychological: Normal affect Diagnostic/Tx/Re-eval Chest X-Ray - ED: 1 View, Read by ED Physician, Read by Radiologist, Normal, Heart, Lungs - Medical Decision Making She has a normal ED work-up she does appear dehydrated which may contribute to her white pulse pressure. I gave her hydralazine and IV fluids. I will increase her hydrochlorothiazide from 12.5 to 25 mg at home ED Disposition - Plan for ED Patient: Disposition: Home or Assisted Living Diagnosis: Hypertension Instructions: ED Hypertension, Established Referrals: Diana Saravia MD [Primary Care Provider] - 3-5 Days Additional Instructions: Crease her hydrochlorothiazide from 12.5 mg to 25 mg until you see your primary care physician
[2020-03-26 23:48] VITALS: BP 148/55; PULSE 60; RESP 18; O2SAT 99
== END 2020-03-26 23:49 | disposition home or self-care (01) ==
PROVIDERS: Emergency Provider Emergency Medicine; PCP Internal Medicine
DX: I10 Essential (primary) hypertension (principal); Z79.82 Long term (current) use of aspirin; Z79.899 Other long term (current) drug therapy; Z87.891 Personal history of nicotine dependence
CPT/HCPCS: 71045; 80053; 85025; 96361; 96374; 99283; J7030; A4216

== ENCOUNTER → 2020-04-03 08:33 | Outpatient (CLI) | payer MEDICARE, SELFPAY ==
[2020-03-26 20:37] VITALS: BMI 29.2
--- NOTE | 2020-04-03 08:37 | RDU_ITS ---
Reason For Study: Hypertension Right Renal Artery Left Renal Artery Right renal artery ostium Left renal artery ostium 202.5/37.5 357.8/56.1 RSV/EDV. PSV/EDV. Right renal artery proximal Left renal artery proximal PSV/EDV 254.9/40 PSV/EDV. 210.3/33.7 . Right renal artery mid 127.7/25.2 Left renal artery mid 138.9/19.7 PSV/EDV. PSV/EDV . Right renal artery distal Left renal artery distal 175.2/35.2 157.1/36.4 PSV/EDV. PSV/EDV. Right RAR 6.44. Left RAR 3.78. Right Renal Parenchyma Left Renal Parenchyma Upper Pole Medula 35.4/11.4 Left upper pole medulla 37.1/10.8 PSV/EDV. PSV/EDV . Right upper pole medulla EDR 0.32 . Left upper pole medulla EDR 0.29 . Right upper pole medulla R.I. Left upper pole medulla R.I. 0.71 . 0.68 . UP Cortex 21.2/6.4 PSV/EDV. Upper Chuckie Cortx 23.7/7.1 PSV/EDV. Left upper pole cortex EDR 0.30 . Right upper pole cortex EDR 0.30 . Left upper pole cortex R.I. 0.70 . Right upper pole cortex R.I. 0.70 . Left lower Pole medulla 31.7/7.5 Right lower Pole medulla 32.3/9 PSV/EDV . PSV/EDV . Left lower pole medulla EDR 0.24 . Right lower pole medulla EDR 0.28 . Left lower pole medulla R.I. 0.76 . Right lower pole medulla R.I. Lower Pole Cortx 23.4/5.8 PSV/EDV. 0.72 . Left lower pole cortex EDR 0.25 . Lower Pole Cortex 21.9/6.5 PSV/EDV. Left lower pole cortex R.I. 0.75 . Right lower pole cortex EDR 0.30 . Left Renal Hilar Right lower pole cortex R.I. 0.70 . LT Hilar avg 78.5/17.6 PSV/EDV . Right Renal Hilar Left hilar acceleration time 50 Right Hilar avg 56.6/18.2 PSV/EDV. m/sec. Right hilar acceleration time 40 Left Renal Dimensions m/sec. Left kidney size 10.50 cm . Right Renal Dimensions Left cortical dimension 1.27 cm . Right kidney size 9.07 cm . Right cortical dimension 1.10 cm . Aorta Proximal abdominal aorta 1.54 x 1.50 cm . Proximal abdominal aorta peak systolic velocity is 55.6 cm/sec . Distal abdominal aorta 1.20 x 1.20 cm . Distal abdominal aorta peak systolic velocity is 46.8 cm/sec . Interpretation Summary Normal proximal aortic diameter of 1.54 x 1.5 cm with normal flow velocity. 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
== END ==
PROVIDERS: PCP Internal Medicine; Referring Provider Internal Medicine; Visit Provider Internal Medicine
DX: I10 Essential (primary) hypertension (principal)
CPT/HCPCS: 93975

== ENCOUNTER → 2020-05-06 09:09 | Outpatient (CLI) | payer MEDICARE, SELFPAY ==
--- NOTE | 2020-05-06 09:12 | US_ITS ---
STUDY: ABDOMINAL ULTRASOUND - RIGHT UPPER QUADRANT REASON FOR VISIT: Female, 79 years old ELEVATED LIVER ENZ TECHNIQUE: Ultrasound evaluation of the right upper quadrant was performed with real-time and static singh-scale imaging. TECHNICAL QUALITY: Adequate. COMPARISON: Comparison is made with prior sonogram dated 05/07/2016. FINDINGS: Liver: The liver measures 15 cm. There is increased echogenicity consistent with fatty infiltration. The bile ducts are within normal limits. There is hepatic color flow. The direction of portal flow is hepatopetal. There is no demonstrated mass lesion. Gallbladder: Normal distended gallbladder. The gallbladder wall measures 2.1 mm. There is a negative sonographic Joseph''s sign. There is no pericholecystic fluid. There are no gallstones. Common Bile Duct (C.B.D.): The common bile duct measures 3.2 mm. Pancreas: Normal size of the head, body and tail of the pancreas. There is increased echogenicity of the pancreas. There is no demonstrated pancreatic mass or cyst. Right Kidney: Normal size of the right kidney. The right kidney measures 9.8 cm x 4.8 cm x 3.7 cm. There is thinning of the renal cortex. The right cortex measures 0.8 cm. There is no demonstrated renal mass or cyst. There is no right hydronephrosis. US/Liver IMPRESSION: Fatty infiltration of the liver. Electronically Signed: Archie Caceres MD at 15:18 EST , Service support ,
--- NOTE | 2020-05-06 15:00 | US_ITS ---
STUDY: ULTRASOUND OF THE FEMALE PELVIS - COMPLETE REASON FOR EXAM: Female, 79 years old. LLQ PAIN LMP: Menopause TECHNIQUE: Transabdominal TECHNICAL QUALITY: Adequate. COMPARISON: None. FINDINGS: The uterus is anteverted and is in a midline position. The uterus measures 7.0 x 4.6 x 2.9 cm. Normal uterine cervix. The endometrium measures 8 mm in thickness, and is hyperechoic. There is no demonstrated endometrial mass. 1.2 cm hypoechoic area within the anterior aspect of the lower uterine segment consistent with a small intramural fibroid. I.U.D. - The patient does not have an I.U.D. The right ovary is visualized. The right ovary measures 1.3 x 2.0 x 0.9 cm. There is no right ovarian cyst or ovarian mass. There is no visualized right adnexal mass or complex lesion. There is normal arterial and normal venous vascularity. The left ovary is visualized. The left ovary measures 2.9 x 2.0 x 1.7 cm. There is no left ovarian cyst or ovarian mass. There is no visualized left adnexal mass or complex lesion. There is normal arterial and normal venous vascularity. There is no fluid in the cul-de-sac. The pre void volume of the bladder was ml. The post void volume of the bladder was ml. Polycystic ovary disease: No. US/Pelvic (Non ) IMPRESSION: Small fibroid in the anterior lower uterine segment but otherwise a normal pelvic ultrasound. Electronically Signed: Donell Ashley MD at 17:16 EST Tel , Service support ,
== END ==
PROVIDERS: PCP Internal Medicine; Referring Provider Internal Medicine; Visit Provider Internal Medicine
DX: R10.32 Left lower quadrant pain (principal); R74.8 Abnormal levels of other serum enzymes
CPT/HCPCS: 76705; 76856

== ENCOUNTER → 2020-05-15 08:53 | Outpatient (CLI) | payer MEDICARE, SELFPAY ==
[2020-05-15] VITALS (9 sets, daily range): BP systolic 111–146; BP diastolic 51–94; PULSE 60–65; RESP 10–18; TEMP 36.9; O2SAT 94–99; BMI 28.7
--- NOTE | 2020-05-15 | LIVB_PTH ---
PATIENT: MALI PATEL LOC: CT U#:[id number] AGE/SX: 84/F ROOM: RE05/15/[address]: Dr. Diana Saravia MD : 1940 BED: DIS: SPEC #: [id number] RECD: 05/15/20 10:33 STATUS: MELODY FLOYD #: [id number] KINGS: 05/15/20 00:[address]: Diana Saravia DEPT: SURGICAL PATHOLOGY RECD BY: Sallie Mckeon Tissues: Liver, NOS Procedures: PAS with Diastase (control) Trichrome (control) Special Stain Group II PAS Stain (control) Surgery Specimen Level V Retic (control) Iron Stain (control) HEADER OPERATION: CT-guided liver biopsy PRE-OP DIAGNOSIS: Elevated liver enzymes TISSUE SUBMITTED: Liver biopsy 18-gauze x3 MICROSCOPIC DIAGNOSIS Liver, CT-guided biopsy: Hepatic steatosis. Minimal chronic inflammation. See Comment. AM:lobo 05/16/2020 COMMENT Iron stain with matched control reveals minimal intraparenchymal deposition for iron. Reticulin stain with matched control shows a normal trabecular pattern. Trichrome stain with matched control does not reveal fibrosis or cirrhosis. PAS stain with and without diastase does not reveal accumulation of abnormal proteins. The fatty change is mostly macrovesicular with focal microvesicular steatosis. Minimal inflammation is noted around the portal tracts and focally in the lobules. Clinical correlation is suggested. Recent report shows AST elevated at 54 U/L and ALT at 89 U/L and alkaline phosphatase at 120 U/L. MICROSCOPIC DESCRIPTION Slides are reviewed. GROSS DESCRIPTION Received is one container labeled with the patient's name and not further designated. The specimen consists of three cores of light dumont soft tissue. Each core has an average length of 1 cm and maximal diameter of <0.1 cm. The specimen is submitted in its entirety in one cassette. / AM:lobo 05/15/20 TC:3 CPT: 00264, 83095 x5
--- NOTE | 2020-05-15 09:00 | CT_ITS ---
PROCEDURE: CT DIRECTED CORE LIVER BIOPSY INDICATION: Female, 79 years old. ELEVATED LIVER ENZYMES PHYSICIAN: Dr. DIA Thorpe CONSENT: Written informed consent was obtained having explained the risks, benefits and alternatives in detail with the patient who accepted the risks and agreed to proceed. Laboratory review and clinical assessment was performed. CONSCIOUS SEDATION PROTOCOL: The Drugs used were: 2 mg Versed, IV., and 50 mcg Fentanyl, IV. The sedation time was: 17 minutes. Conscious sedation was started at 10:08 AM and terminated at 10:25 AM. The conscious sedation protocol was independently monitored. RADIATION DOSAGE (If Supplied By Facility): CTDIvol = ( 15 ) mGy, DLP = ( 285.93 ) mGycm Individualized dose optimization techniques were used for this CT. TECHNIQUE: Using CT image guidance with image documentation, a suitable location in the right lobe of the liver was identified. Using a right anterior approach, puncture of the liver was uneventful with an 18-gauge core needle system. 3, 18-gauge core samples were obtained, and submitted in formalin to the pathologist for further assessment. Followup CT scan revealed no distinct sequelae. CT/Biopsy/Inj or Needle Placement IMPRESSION: 1. CT directed core needle biopsy of the liver, using CT image guidance with image documentation as described. 2. Conscious Sedation protocol utilized with independent monitoring. Electronically Signed: Archie Caceres MD at 10:41 EST , Service support ,
[2020-05-15] MEDS: fentaNYL 100 MCG/2 ML Ampul IV (10:08)
[2020-05-15] MEDS: Midazolam 2 MG/2 ML Syringe IV (10:08)
== END ==
LOC: US 08:54 → CT 09:54
PROVIDERS: PCP Internal Medicine; Referring Provider Internal Medicine; Visit Provider Internal Medicine
DX: K76.0 Fatty (change of) liver, not elsewhere classified (principal)
CPT/HCPCS: 47000; 77012; 88307; 88313; 99155; 99156; J7040; A4216

== ENCOUNTER → 2020-06-07 09:49 | Outpatient (CLI) | payer MEDICARE, SELFPAY ==
[2020-05-15 09:19] VITALS: BMI 28.7
--- NOTE | 2020-06-07 09:55 | BI_ITS ---
MAMMOGRAPHY - BILATERAL SCREENING REASON FOR EXAM: Female, 79 years old. Routine annual screening examination. PERTINENT HISTORY: Non-contributory. TECHNIQUE: Digital bilateral breast hannah (3D mammographic acquisition) in the CC and MLO projections. 2-D mediolateral oblique (MLO) and craniocaudad (CC) views of both breasts were obtained. CAD: Full Field Digital Mammography with Computer Added Detection was performed. COMPARISON: Comparison is made with prior study dated 06/05/2019 and 05/31/2018. FINDINGS: Breast Composition: There are scattered areas of fibroglandular density. There are no dominant masses or suspicious calcifications. Stable right axillary lymph nodes. A pacemaker battery pack is seen in the left axillary region. No other significant abnormalities are identified. There has been no significant change since the prior study. BI/SCRN MAMM (CAD)W/HANNAH BILAT IMPRESSION: Stable bilateral screening mammogram. Yearly follow-up mammogram recommended. (A) ASSESSMENT CATEGORY: BIRADS Category 2: Benign. A letter regarding these results will be sent to the patient by the facility within 30 days. Approximately 10% of breast cancers are not detected by mammography. A normal mammogram should not delay biopsy of a clinically suspicious abnormality. [id number] Electronically Signed: Archie Caceres MD at 11:47 EST , Service support ,
== END ==
PROVIDERS: PCP Internal Medicine; Referring Provider Internal Medicine; Visit Provider Internal Medicine
DX: Z12.31 Encounter for screening mammogram for malignant neoplasm of breast (principal)
CPT/HCPCS: 77063; 77067

== ENCOUNTER 2020-06-17 14:40 | Outpatient (RCR) | payer MEDICARE, SELFPAY ==
[2020-05-15 09:19] VITALS: BMI 28.7
== END 2020-06-17 23:59 ==
LOC: IMMUN 14:40
PROVIDERS: PCP Internal Medicine; Visit Provider Family Medicine
DX: Z23 Encounter for immunization (principal)
CPT/HCPCS: 0011A; 0012A

== ENCOUNTER → 2020-09-20 10:49 | Outpatient (CLI) | payer MEDICARE, SELFPAY ==
[2020-05-15 09:19] VITALS: BMI 28.7
--- NOTE | 2020-09-20 10:56 | ART_ITS ---
Reason For Study: PAD Procedure A bilateral lower extremity continuous wave Doppler with analog waveform analysis,segmental pressures,and ankle brachial indexes with exercise. Left Segmental Pressures Left brachial= 146mmHg. Left thigh = 149mmHg. Left calf = 101mmHg. Left posterior tibial artery = 111mmHg. Left dorsalis pedis artery = 105mmHg. Left digit = 81 mmHg. The left dorsalis pedis waveforms are biphasic. The left posterior tibial artery waveforms are monophasic. Right Segmental Pressures Right brachial= 159mmHg. Right thigh = 202mmHg. Right calf = 161mmHg. Right posterior tibial artery = 154mmHg. Right dorsalis pedis artery = 98mmHg. Right digit = 73 mmHg. The right dorsalis pedis waveforms are biphasic. The right posterior tibial artery waveforms are biphasic. Indices The right ankle brachial index by the dorsalis pedis is 0.62. The right ankle brachial index by the posterior tibial artery is 0.97. The right digital-brachial index is 0.46. The right post exercise ankle brachial index is 0.63. The left ankle brachial index by the dorsalis pedis is 0.66. The left ankle brachial index by the posterior tibial artery is 0.70. The left digital-brachial index is 0.51. The left post exercise ankle brachial index is 0.31. VL/Lower Ext Art Exam w/ Exercise Interpretation Summary Abnormal bilateral lower extremity ankle-brachial indices. Right PT index of 0. 97 which suggest mild disease however the right posterior tibial and dorsalis pedis Doppler waveforms are biphasic consistent with moderate least severe disease. The left lower extremity PT and DP ankle-brachial index of 0.7 and 0.66 are con sistent with moderately severe disease. Of note the left posterior tibial Doppler waveform i s only monophasic while the dorsalis pedis is biphasic. Exercise indices are abnormal bilaterally. In particular there is significant d ecline on the left. 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 Ordering Physician: Jaydon Pugh Referring Physician: Diana Saravia M.D. Performed By: Josi Campbell RVT and Student
== END ==
PROVIDERS: PCP Internal Medicine; Referring Provider Surgery; Visit Provider Surgery
DX: I73.9 Peripheral vascular disease, unspecified (principal)
CPT/HCPCS: 93924

== ENCOUNTER → 2021-03-27 09:57 | Outpatient (CLI) | payer MEDICARE, SELFPAY ==
--- NOTE | 2021-03-27 10:04 | CDU_ITS ---
Reason For Study: Carotid stenosis Rt. Velocities/BP Lt. Velocities/BP Prox CCA 52.6/12.1 cm/sec. Prox CCA 83.9/12.6 cm/sec. Mid CCA 58.6/14.6 cm/sec. Mid CCA 76.5/11.4 cm/sec. Dist CCA 58.6/14.6 cm/sec. Dist CCA 60.5/11.4 cm/sec. Prox ICA 79.1/17 cm/sec. Prox ICA 65.1/13.5 cm/sec. Mid ICA 104.7/20.6 cm/sec. Mid ICA 81.6/24.5 cm/sec. Dist ICA 86.3/24.9 cm/sec. Dist ICA 84.9/19 cm/sec. Rt. ICA/CCA = 1.8. Lt. ICA/CCA = 1.1. Prox ECA 154.3/13.8 cm/sec. Prox ECA 78.9/9 cm/sec. Rt. Vert. 50.7/15.1 cm/sec. Lt. Vert. 60.8/15.7 cm/sec. Right Extracranial There is heterogeneous, irregular atherosclerotic plaque noted in the right common carotid artery. There is heterogeneous, irregular atherosclerotic plaque noted in the right internal carotid artery. There is heterogeneous, irregular atherosclerotic plaque noted in the right external carotid artery. Antegrade flow is noted in the right vertebral artery. Left Extracranial There is homogeneous, smooth atherosclerotic plaque noted in the left common carotid artery. There is heterogeneous, irregular atherosclerotic plaque noted in the left internal carotid artery. There is homogeneous, irregular atherosclerotic plaque noted in the left external carotid artery. Antegrade flow is noted in the left vertebral artery. Procedure Carotid Duplex [id number]. This is a Carotid Duplex examination using B-mode, color flow and specral Doppler. Exam performed in department. VL/Carotid Duplex Ultrasound Interpretation Summary Irregular calcific plaque with shadowing at the proximal right internal carotid artery with less than 50% stenosis Less than 50% stenosis right external carotid artery Irregular calcific plaque with shadowing at the proximal left internal carotid artery with less than 50% stenosis Less than 50% stenosis left external carotid artery Patent and antegrade vertebral arteries bilaterally The slightly increased velocities involving the left internal carotid that were identified March 18, 2020 are not identified on this examination. Ordering Physician: Jaydon Pugh Referring Physician: Diana Saravia M.D. Performed By: Josi Campbell RVT
== END ==
PROVIDERS: PCP Internal Medicine; Referring Provider Surgery; Visit Provider Surgery
DX: I65.22 Occlusion and stenosis of left carotid artery (principal)
CPT/HCPCS: 93880

== ENCOUNTER → 2021-04-14 | Outpatient (CLI) | payer MEDICARE, SELFPAY | END | disposition home or self-care (01) | LOC: LABSPEC 12:11 | PROVIDERS: PCP Internal Medicine; Visit Provider Nurse Practitioner | DX: J00 Acute nasopharyngitis [common cold] (principal) ==

== ENCOUNTER 2021-04-18 11:18 | Outpatient (CLI) | payer MEDICARE, SELFPAY ==
[2021-04-18 11:28] VITALS: BP 147/79; PULSE 79; RESP 16; TEMP 36.5; O2SAT 100
[2021-04-18] MEDS: 0.9% Saline Lock 10 ML Syringe IV (11:31)
[2021-04-18 12:04] VITALS: BP 130/69; PULSE 60; RESP 16; TEMP 36.6; O2SAT 95
[2021-04-18 12:55] VITALS: BP 154/77; PULSE 69; RESP 16; TEMP 36.3; O2SAT 97
== END 2021-04-18 13:03 | disposition home or self-care (01) ==
LOC: MS3OUT 11:18 → MS3 11:19
PROVIDERS: PCP Internal Medicine; Visit Provider Nurse Practitioner Acute Care
DX: Z23 Encounter for immunization (principal); U07.1 COVID-19
CPT/HCPCS: J7050; M0245; Q0245; A4216

== ENCOUNTER 2021-06-10 15:48 | Outpatient (CLI) | payer MEDICARE, SELFPAY ==
--- NOTE | 2021-06-10 15:50 | BI_ITS ---
MAMMOGRAPHY - BILATERAL SCREENING REASON FOR EXAM: Female, 80 years old. Routine annual screening examination. PERTINENT HISTORY: Non-contributory. TECHNIQUE: Digital bilateral breast hannah (3D mammographic acquisition) in the CC and MLO projections. 2-D mediolateral oblique (MLO) and craniocaudad (CC) views of both breasts were obtained. CAD: Full Field Digital Mammography with Computer Added Detection was performed. COMPARISON: Comparison is made with prior study dated 06/07/2020 and 06/05/2019. FINDINGS: Breast Composition: There are scattered areas of fibroglandular density. There are no dominant masses or suspicious calcifications. Once again, a pacemaker battery pack is seen in the left axillary region. No other significant abnormalities are identified. BI/SCRN MAMM (CAD)W/HANNAH BILAT IMPRESSION: Stable bilateral screening mammogram. Yearly follow-up mammogram recommended. (A) ASSESSMENT CATEGORY: BIRADS Category 1: Negative. A letter regarding these results will be sent to the patient by the facility within 30 days. Approximately 10% of breast cancers are not detected by mammography. A normal mammogram should not delay biopsy of a clinically suspicious abnormality. [id number] Electronically Signed: Archie Caceres MD at 8:27 EST ,
== END 2021-06-10 23:59 | disposition home or self-care (01) ==
LOC: OPBD 15:48
PROVIDERS: PCP Internal Medicine; Referring Provider Internal Medicine; Visit Provider Internal Medicine
DX: Z12.31 Encounter for screening mammogram for malignant neoplasm of breast (principal)
CPT/HCPCS: 77063; 77067

== ENCOUNTER 2021-07-23 11:43 | Emergency (ER) | payer MEDICARE, SELFPAY ==
[2021-07-23 11:43] VITALS: BP 188/99; PULSE 76; RESP 16; TEMP 36.4; O2SAT 99; BMI 28.0
--- NOTE | 2021-07-23 11:55 | EDS_ITS ---
HPI History of Present Illness Chief Complaint: Hypertension Detail of Chief Complaint: Right-sided nosebleed Informant: patient Onset/Context/Timing Onset: Days Context: Sudden Onset Timing: Intermittent Current Severity: Mild Maximum Severity: Mild Narrative Narrative: 80-year-old female history of hypertension and A. fib. On several different blood pressure medications. States she has had intermittent nosebleeds on the right for about a week. It will start bleeding stopped. The only blood thinner she is on is aspirin which she decreased every other day. She denies any nasal trauma. Also states her blood pressure is up a little bit. Prior similar symptoms: Yes Recent Illness/Hospitalization: No [facility] Medical History Abnormal electrocardiogram Essential hypertension HTN (hypertension) Hyperlipidemia Hypokalemia Mitral valve prolapse Near syncope PAC (premature atrial contraction) PAD (peripheral artery disease) Palpitations Paroxysmal atrial fibrillation Premature ventricular contractions PSVT (paroxysmal supraventricular tachycardia) Renal artery stenosis, [place], bilateral Sick sinus syndrome Stenosis of left carotid artery Home Medications calcium carbonate 1,000 mg PO DAILY 12/16/14 [History Last Taken Unknown] potassium chloride 20 meq PO BID 12/16/14 [History Last Taken Unknown] hydrochlorothiazide 12.5 mg capsule 12.5 mg PO QDAY cap 06/02/17 [History Last Taken Unknown] folic acid 1 mg tablet 5 mg PO DAILY tab 09/26/18 [History Last Taken Unknown] aspirin 81 mg tablet,delayed release 81 mg PO DAILY 03/29/19 [History Last Taken 05/06/20] magnesium oxide 400 mg (241.3 mg magnesium) tablet 400 mg PO BID #180 tab 07/11/19 [Rx Last Taken Unknown] evolocumab 140 mg/mL subcutaneous pen injector 140 mg SC Q2W 01/01/20 [History Last Taken Unknown] abatacept (with maltose) 250 mg intravenous solution See Rx Instructions .ROUTE .COMPLEX 10/07/20 [History Last Taken Unknown] krill oil 500 mg capsule 500 mg PO DAILY cap 10/30/20 [History Last Taken Unknown] losartan 100 mg tablet 100 mg PO DAILY #90 tab 11/04/20 [Rx Last Taken Unknown] cholecalciferol (vitamin D3) 25 mcg (1,000 unit) tablet 1,000 unit PO BID tab 05/09/21 [History Last Taken Unknown] cranberry extract 425 mg capsule 425 mg PO BID cap 05/09/21 [History Last Taken Unknown] metoprolol tartrate 25 mg tablet 25 mg PO BID tab 05/09/21 [History Last Taken Unknown] flecainide 100 mg tablet 100 mg PO BID #180 tab 05/16/21 [Rx Last Taken Unknown] amoxicillin 250 mg PO TID 3 Days #9 cap 07/23/21 [Rx Last Taken Unknown] Allergy/AdvReac Type Severity Reaction Status Date / Time methocarbamol [From Robaxin] Allergy Other Verified 07/23/21 11:45 procaine HCl [From Novocain] Allergy Other Verified 07/23/21 11:45 Family History Mother Myocardial infarction CAD (coronary artery disease) HLD (hyperlipidemia) Brother CAD (coronary artery disease) Surgical History History of foot surgery History of liver biopsy (~06/2020) History of tonsillectomy Hx of colonoscopy (~07/2020) Hx of dilation and curettage Hx of rotator cuff surgery Hx of sinus surgery Presence of cardiac pacemaker Social History Smoking Status: Former smoker alcohol intake: never substance use type: does not use what type of physical activity do you participate in: none ROS ROS ED ROS Narrative Denies. Review of Systems ROS Unobtainable: Denies due to encephalopathy Constitutional Constitutional ED: Denies fever(s) Eyes Eyes: Denies change in vision ENT ENT ED: Denies ear pain Cardiovascular Cardiovascular: Denies chest pain Respiratory/Chest Respiratory/Chest: Denies dyspnea Gastrointestinal Gastrointestinal: Denies abdominal pain Genitourinary Genitourinary ED: Denies dysuria Musculoskeletal Musculoskeletal: Denies myalgias Integumentary Denies rash Neurologic Neurologic: Denies headache(s) Psychiatric Psychiatric: Denies depression Endocrine Endocrinology: Denies polyuria Allergic/Immunologic Allergic/Immunologic ED: Denies urticaria EXAM Physical Exam Narrative Exam Narrative: 80-year-old female no acute distress vital signs stable her blood pressure is elevated 188/99. H EENT exam normal except there is no active bleeding right now from her nose. She has been recently. There is a small amount of blood. There is no abrasion. No clots. Left side is normal. Posterior pharynx normal. Lungs are clear. Heart regular rhythm. Abdomen soft. Otherwise exam unremarkable. Const Vital Signs: 07/23/21 11:43 Temperature 97.5 F L Temperature Source Temporal Pulse Rate 76 Respiratory Rate 16 Blood Pressure 188/99 H Blood Pressure Mean 128 Pulse Ox 99 Oxygen Delivery Method Room Air Positive well nourished and well developed; Negative for obese, cachectic, contractures or unkempt General Appearance ED: well developed and NAD; Negative for unkempt, cachectic, contractures, cyanotic, diaphoretic or pallor Nutritional Appearance: Negative for cachectic or obese HEENT Reports moist mucous membranes Negative for trauma or tenderness Eyes PERRL and EOMs intact bilaterally Neck no lymphadenopathy, supple and no JVD General: Negative for tenderness Chest Wall inspection of chest normal and palpation of chest normal Resp normal respiratory effort and clear to auscultation bilaterally Auscultation: Negative for rales, rhonchi or wheezes Cardio regular rate, regular rhythm, S1 normal heart sound, S2 normal heart sound and no murmurs GI normal to inspection, nondistended, normoactive bowel sounds, non-tender, non- distended and no masses Inspection: Negative for abdominal distention Auscultation: normoactive bowel sounds Palpation: soft; Negative for tender, guarding or rebound tenderness present Back/Spine no CVA tenderness General Back: Negative for CVA tenderness Cervical Spine: Negative for cervical spine tenderness Thoracic Spine / Upper Back: Negative for thoracic spinal tenderness or paraspinal muscle tenderness Extremity normal to inspection General Extremety ED: Negative for edema or tenderness General Extremity: Negative for edema Neuro oriented x3 and CN's II-XII intact bilaterally Sensorium / Orientation: alert; Negative for lethargic or stuporous Motor Exam: strength 5/5 throughout Psych mental status grossly normal Appearance: Negative for unkempt Mood & Affect: Negative for depressed or tearful Skin no rashes or lesions noted and no wounds General Skin Exam: Negative for jaundice or pallor MDM MDM MDM Narrative Medical decision making narrative: 80-year-old with intermittent right-sided nosebleed. Currently a very benign exam. Placed Afrin soaked cotton balls. In the nasal pack. At this time she does not need her blood pressure emergently lowered or treated. She is on chronic blood pressure medications at home. Repeat exam patient doing well at 1:00. Nosebleed is stopped. We discussed options. We will place the Merisel pack. That was coated with antibiotic ointment. She will be discharged home on amoxicillin for 3 days pulled the packing out either Wednesday night or Wednesday morning. Her blood pressure will be rechecked prior to discharge. Discharge Plan Triage Chief Complaint: Hypertension Other Complaint: Nosebleed ED Provider: Hank Partida Dx/Rx/DC Orders Clinical Impression: Acute anterior epistaxis, Hypertension Instructions: ED Epistaxis (Adult) Prescriptions: New amoxicillin 250 mg capsule 250 mg PO TID 3 Days Qty: 9 RF: 0 No Action hydrochlorothiazide 12.5 mg capsule 12.5 mg PO QDAY RF: 0 folic acid 1 mg tablet 5 mg PO DAILY RF: 0 aspirin [Adult Aspirin Regimen] 81 mg tablet,delayed release (DR/EC) 81 mg PO DAILY RF: 0 Repatha SureClick 140 mg/mL pen injector 140 mg SC Q2W RF: 0 krill oil 500 mg capsule 500 mg PO DAILY RF: 0 cranberry extract 425 mg capsule 425 mg PO BID RF: 0 Orencia (with maltose) 250 mg recon soln See Rx Instructions .ROUTE .COMPLEX RF: 0 metoprolol tartrate 25 mg tablet 25 mg PO BID RF: 0 potassium chloride 20 MEQ tablet 20 meq PO BID RF: 0 calcium carbonate 500 MG tablet,chewable 1,000 mg PO DAILY RF: 0 cholecalciferol (vitamin D3) 25 mcg (1,000 unit) tablet 1,000 unit PO BID RF: 0 magnesium oxide 400 mg (241.3 mg magnesium) tablet 400 mg PO BID Qty: 180 RF: 3 losartan 100 mg tablet 100 mg PO DAILY Qty: 90 RF: 3 flecainide 100 mg tablet 100 mg PO BID Qty: 180 RF: 3 Primary Care Provider: Diana Saravia Referrals: Diana Saravai MD [Primary Care Provider] - 3-5 Days Activity Restrictions/Additional Instructions: Leave the nasal packing in for 3 days and can be pulled either Wednesday night or Wednesday morning. If it comes out just leave it out. Amoxicillin 1 pill 3 times a day for the next 3 days. If when you pull the pack out it bleeds will direct pressure should stop. If it bleeds you are unable to get it stopped between now and removing the pack return. Log your blood pressures twice a day and follow-up with your doctor to see if they need to adjust your blood pressure medication. Disposition Disposition: Home, Self Care
[2021-07-23] MEDS: Oxymetazoline 0.05% 1 SPRAY SPRAY.BTL 2 SPRAY NASAL (11:59)
[2021-07-23 13:14] VITALS: BP 205/80; PULSE 79; RESP 16; O2SAT 98
== END 2021-07-23 13:15 | disposition home or self-care (01) ==
PROVIDERS: Emergency Provider Emergency Medicine; PCP Internal Medicine; Visit Provider Emergency Medicine
DX: R04.0 Epistaxis (principal); I73.9 Peripheral vascular disease, unspecified; I48.0 Paroxysmal atrial fibrillation; E78.5 Hyperlipidemia, unspecified; Z87.891 Personal history of nicotine dependence; I10 Essential (primary) hypertension; Z79.899 Other long term (current) drug therapy; Z79.82 Long term (current) use of aspirin; I34.1 Nonrheumatic mitral (valve) prolapse; I65.22 Occlusion and stenosis of left carotid artery
CPT/HCPCS: 30901; 99282; A4216

== ENCOUNTER 2022-04-29 16:15 | Inpatient (IN) | payer MEDICARE, SELFPAY ==
[2022-04-23 10:17] LABS: Hematocrit 42.1 % (37-47); Hemoglobin 14.2 g/dL (12.0-15.0); Mean Corp Hgb Conc 33.7 g/dL (32-36); Mean Corpuscular Hgb 30.5 pg (27.0-32.0); Mean Corpuscular Volume 90.3 fL (81-99); Mean Platelet Vol. 10.1 fl (6.2-12.0); Platelet Count 175 K/mm3 (150-450); RBC Distribution Width SD 42.3 fl (35.1-43.9); Red Blood Count 4.66 M/mm3 (4.2-5.4); White Blood Count 6.9 K/mm3 (4.4-11.0)
[2022-04-23 10:41] LABS: Anion Gap 4 (5-15); BUN 20 mg/dL (7-18); BUN/Creat Ratio 17.1 RATIO (10-20); Calcium,Total 9.2 mg/dL (8.5-10.1); Chloride 106 mmol/L (98-107); Creatinine, Serum 1.17 mg/dL (0.55-1.02); EST Glomerular Filtration Rate 47 mL/min (>60); Est Glom Filt Rate - Afr Amer 57 mL/min (>60); Glucose 114 mg/dL (74-106); Potassium 3.9 mmol/L (3.5-5.1); Sodium Level 138 mmol/L (136-145)
[2022-04-28 09:40] VITALS: BMI 28.0
[2022-04-29] VITALS (36 sets, daily range): BP systolic 77–173; BP diastolic 44–105; PULSE 60–78; RESP 15–23; TEMP 36.6–38.1; O2SAT 96–100; BMI 28.1
--- NOTE | 2022-04-29 08:10 | PCM.HP.STD ---
HPI - General HPI Narrative MALI PATEL, is a 81 F who presents with renal artery stenosis, CKD, increasing HTN. [facility] Medical History Abnormal electrocardiogram CAD (coronary artery disease) CKD (chronic kidney disease) Essential hypertension HTN (hypertension) Hyperlipidemia Hypokalemia Mitral valve prolapse Near syncope Osteopenia PAC (premature atrial contraction) PAD (peripheral artery disease) Palpitations Paroxysmal atrial fibrillation Premature ventricular contractions PSVT (paroxysmal supraventricular tachycardia) Renal artery stenosis, [place], bilateral Rheumatic arteritis Sick sinus syndrome Stenosis of left carotid artery Home Medications potassium chloride 20 mEq tablet,extended release(part/cryst) 20 meq PO BID 12/16/14 [History Last Taken Unknown] hydrochlorothiazide 12.5 mg capsule 12.5 mg PO QDAY 06/02/17 [History Last Taken Unknown] folic acid 1 mg tablet 5 mg PO DAILY 09/26/18 [History Last Taken Unknown] magnesium oxide 400 mg (241.3 mg magnesium) tablet 400 mg PO BID #180 tabs 07/11/19 [Rx Last Taken Unknown] evolocumab 140 mg/mL subcutaneous pen injector (Repatha SureClick) 140 mg subcut Q2W 01/01/20 [History Last Taken Unknown] krill oil 500 mg capsule 500 mg PO DAILY 10/30/20 [History Last Taken Unknown] cholecalciferol (vitamin D3) 25 mcg (1,000 unit) tablet 1,000 unit PO BID 05/09/21 [History Last Taken Unknown] flecainide 100 mg tablet 100 mg PO BID #180 tabs 05/16/21 [Rx Last Taken 04/29/22] losartan 100 mg tablet 100 mg PO DAILY #90 tabs 03/10/22 [Rx Last Taken Unknown] abatacept (with maltose) 250 mg intravenous solution See Rx Instructions .Route .COMPLEX 03/24/22 [History Last Taken Unknown] amlodipine 2.5 mg tablet 2.5 mg PO DAILY 03/24/22 [History Last Taken 04/29/22] melatonin 3 mg capsule 3 mg PO HS PRN Sleep 03/24/22 [History Last Taken Unknown] metoprolol tartrate 25 mg tablet 75 mg PO BID 03/24/22 [History Last Taken 04/29/22] multivitamin (Daily Multi-Vitamin tablet) 1 tab PO DAILY 03/24/22 [History Last Taken Unknown] vitamin B complex 1 tab PO DAILY 03/24/22 [History Last Taken Unknown] Allergy/AdvReac Type Severity Reaction Status Date / Time methocarbamol [From Robaxin] AdvReac Severe Other Verified 03/24/22 14:45 procaine HCl [From Novocain] AdvReac Other Verified 03/24/22 14:45 statins AdvReac Unknown Other Uncoded 03/24/22 14:45 Family History Mother Myocardial infarction CAD (coronary artery disease) HLD (hyperlipidemia) Brother CAD (coronary artery disease) Surgical History History of foot surgery History of liver biopsy (~06/2020) History of tonsillectomy Hx of colonoscopy (~07/2020) Hx of dilation and curettage Hx of rotator cuff surgery Hx of sinus surgery Presence of cardiac pacemaker Social History Smoking Status: Former smoker alcohol intake: never substance use type: does not use what type of physical activity do you participate in: none ROS Constitutional Constitutional: Denies chills, fever(s), frequent falls, lethargy or weakness Eyes Eyes: Denies blind spots, change in vision or loss of vision ENT HEENT: Denies bleeding gums, hoarseness or sore throat Cardiovascular Cardiovascular: Denies abdominal pain, bluish discoloration of hand/feet, chest pain with activity, claudication, cold extremities, cyanosis, dyspnea on exertion, erythema on extremities, irregular heart rhythm, leg edema, leg ulcers, numbness in extremities or weakness in extremities Respiratory/Chest Respiratory/Chest: Denies cough, excessive phlegm production, shortness of breath at rest, shortness of breath with exertion or wheezing Gastrointestinal Gastrointestinal: Denies anorexia, change in stool character, constipation, diarrhea, melena or rectal bleeding Genitourinary Genitourinary: Denies dysuria or hematuria Musculoskeletal Musculoskeletal: Denies abnormal gait Integumentary Integumentary: Reports other Details: ; Denies erythema, non-healing lesions or wounds Neurologic Neurologic: Denies abnormal speech, focal weakness, headache(s), loss of vision, numbness, paresthesias or sensory deficit Hematologic/Lymphatic Hematologic/Lymphatic: Denies easy bleeding, easy bruising or lymphadenopathy Vital Signs Vital Signs Vital Signs: Weight Weight: 153 lb Body Mass Index (BMI) 28.0 Physical Exam Const alert, oriented x3, no apparent distress and healthy appearing General Appearance: cooperative; Negative for combative or lethargic Orientation / Consciousness: awake Exam Limitations: no limitations HEENT Head and Scalp: normocephalic and atraumatic Eyes EOMs intact bilaterally General Eye: normal appearance of both eyes Neck full ROM, no lymphadenopathy, thyroid normal and No no carotid bruits General: trachea midline; Negative for lymphadenopathy or tenderness Thyroid: thyroid normal Lymph Lymphatic: Negative for no lymphadenopathy noted Resp normal respiratory effort and no use of accessory muscles Effort and Inspection: Negative for labored, stridor or audible wheezes Cardio regular rate and regular rhythm Back/Spine Cervical Spine: cervical ROM normal Extremity full ROM, normal capillary refill and no clubbing, cyanosis or edema Skin no rashes or lesions noted and no wounds Neuro oriented x3, CN's II-XII intact bilaterally, no focal motor deficits and no sensory deficits noted Psych thought process normal, cooperative, affect normal, speech normal and activity/motor behavior normal Results Lab / Micro Data Result Diagrams: 04/23/22 09:00 04/23/22 09:00 Assessment & Plan Assessment/Plan (1) Renal artery stenosis, red cliff, bilateral: PLAN: -angiogram, renal stent
[2022-04-29 12:20] LABS: Absolute Lymphocyte Count 4.85 X10^3/uL (0.83-4.51); Absolute Neutrophil Count 13.8 X10^3/uL (2.0-7.7); Basophil# 0.09 X10^3/uL; Basophil% 0.4 % (0-1); Eosinophil# 0.14 X10^3/uL; Eosinophils% 0.7 % (0-5); Hematocrit 31.5 % (37-47); Hemoglobin 10.7 g/dL (12.0-15.0); Lymphocyte # 4.85 X10^3/ul (0.83-4.51); Lymphocyte % 24.2 % (19-41); Mean Corpuscular Hgb 30.4 pg (27.0-32.0); Mean Corpuscular Volume 89.5 fL (81-99); Monocyte# 0.86 X10^3/uL; Monocyte% 4.3 % (0-10); NRBC Flagged by Analyzer 0 % (0-5); Neutrophil # 13.84 X10^3/uL (2.7-7.7); Neutrophil % 69.2 % (47-70); Platelet Count 227 K/mm3 (150-450); RBC Distribution Width SD 42.1 fl (35.1-43.9); Red Blood Count 3.52 M/mm3 (4.2-5.4)
[2022-04-29 12:32] LABS: Anion Gap 6 (5-15); BUN 22 mg/dL (7-18); BUN/Creat Ratio 17.7 RATIO (10-20); Calcium,Total 8.1 mg/dL (8.5-10.1); Chloride 109 mmol/L (98-107); Creatinine, Serum 1.24 mg/dL (0.55-1.02); EST Glomerular Filtration Rate 44 mL/min (>60); Est Glom Filt Rate - Afr Amer 54 mL/min (>60); Estimated Creatinine Clearance 28.62 ml/min; Glucose 377 mg/dL (74-106); International Normalized Ratio 1.2; Potassium 5.8 mmol/L (3.5-5.1); Prothrombin Time (Protime)PT. 15.1 SECONDS (11.7-14.9); Sodium Level 135 mmol/L (136-145)
[2022-04-29 12:35] LABS: Partial Thromboplast Time 125.8 Seconds (24.1-36.2)
--- NOTE | 2022-04-29 13:33 | CON.PCM.CC_ITS ---
Assessment & Plan Assessment/Plan (1) Hemorrhagic shock: PLAN: Plan RECOMMENDATIONS: 1. Continue Levophed to maintain a mean arterial pressure at or above 65 mmHg. 2. Establish central venous access. 3. Stat CBC. Transfuse if hemoglobin drops below 7 g/dL. 4. Antiemetics as needed. 5. Hold home antihypertensives. IMPRESSIONS: 1. Bilateral renal artery stenosis status post right renal angioplasty, complicated by perforation leading to hemorrhagic shock The patient was transferred to the medical intensive care unit postprocedure with hypotension, ultimately requiring the initiation of vasopressor support. I do suspect that her hypotension is likely secondary to hemorrhagic shock. She is currently receiving packed red blood cells. Plan to continue aggressive volume resuscitation. Central venous catheter will be placed to facilitate vasopressor administration. The patient is otherwise maintaining appropriate a irway and oxygen saturations. Plan to send stat CBC at this time. No further bleeding has been identified from the patient's vascular access site. 2. History of hypertension/obesity Complicates care, management, recovery and prognosis. Continue to hold home antihypertensives for now, given tenuous hemodynamics. TIME: 33 minutes of critical care time, independent of procedures, was spent addressing the patient's hemorrhagic shock, anemia, review of all data and collaboration with the care team. HPI Consult Data Date of Consult: 04/30/22 HPI Narrative Reason for Consultation: Hemorrhagic shock HPI Narrative: The patient is an 81-year-old female, with a history as outlined below, who presented to the hospital for an outpatient angiogram and renal intervention due to a history of renal artery stenosis. The patient was taken to the OR where she was identified as having a right renal occlusion and left mild renal stenosis, for which she underwent an aortogram and right renal angioplasty and stenting. The procedure was complicated by distal renal artery perforation requiring coiling. Post procedure, the patient became hypotensive and was transfused packed red blood cells and supplemental IV fluids. She was subsequently admitted to the medical intensive care unit for further management. The patient had a triple-lumen central venous catheter placed and was initiated on vasopressor support to maintain hemodynamic stability. [facility] Medical History Abnormal electrocardiogram CAD (coronary artery disease) CKD (chronic kidney disease) Essential hypertension HTN (hypertension) Hyperlipidemia Hypokalemia Mitral valve prolapse Near syncope Osteopenia PAC (premature atrial contraction) PAD (peripheral artery disease) Palpitations Paroxysmal atrial fibrillation Premature ventricular contractions PSVT (paroxysmal supraventricular tachycardia) Renal artery stenosis, [place], bilateral Rheumatic arteritis Sick sinus syndrome Stenosis of left carotid artery Home Medications potassium chloride 20 mEq tablet,extended release(part/cryst) 20 meq PO BID 12/16/14 [History Last Taken Unknown] hydrochlorothiazide 12.5 mg capsule 12.5 mg PO QDAY 06/02/17 [History Last Taken Unknown] folic acid 1 mg tablet 5 mg PO DAILY 09/26/18 [History Last Taken Unknown] magnesium oxide 400 mg (241.3 mg magnesium) tablet 400 mg PO BID #180 tabs 07/11/19 [Rx Last Taken Unknown] evolocumab 140 mg/mL subcutaneous pen injector (RepathTaylor EnterprisesAnandick) 140 mg subcut Q2W 01/01/20 [History Last Taken Unknown] krill oil 500 mg capsule 500 mg PO DAILY 10/30/20 [History Last Taken Unknown] cholecalciferol (vitamin D3) 25 mcg (1,000 unit) tablet 1,000 unit PO BID 05/09/21 [History Last Taken Unknown] flecainide 100 mg tablet 100 mg PO BID #180 tabs 05/16/21 [Rx Last Taken 04/29/22] losartan 100 mg tablet 100 mg PO DAILY #90 tabs 03/10/22 [Rx Last Taken Unknown] abatacept (with maltose) 250 mg intravenous solution See Rx Instructions .Route .COMPLEX 03/24/22 [History Last Taken Unknown] amlodipine 2.5 mg tablet 2.5 mg PO DAILY 03/24/22 [History Last Taken 04/29/22] melatonin 3 mg capsule 3 mg PO HS PRN Sleep 03/24/22 [History Last Taken Unknown] metoprolol tartrate 25 mg tablet 75 mg PO BID 03/24/22 [History Last Taken 04/29/22] multivitamin (Daily Multi-Vitamin tablet) 1 tab PO DAILY 03/24/22 [History Last Taken Unknown] vitamin B complex 1 tab PO DAILY 03/24/22 [History Last Taken Unknown] Allergy/AdvReac Type Severity Reaction Status Date / Time methocarbamol [From Robaxin] AdvReac Severe Other Verified 03/24/22 14:45 procaine HCl [From Novocain] AdvReac Other Verified 03/24/22 14:45 statins AdvReac Unknown Other Uncoded 03/24/22 14:45 Family History Mother Myocardial infarction CAD (coronary artery disease) HLD (hyperlipidemia) Brother CAD (coronary artery disease) Surgical History History of foot surgery History of liver biopsy (~06/2020) History of tonsillectomy Hx of colonoscopy (~07/2020) Hx of dilation and curettage Hx of rotator cuff surgery Hx of sinus surgery Presence of cardiac pacemaker Social History Smoking Status: Former smoker alcohol intake: never substance use type: does not use what type of physical activity do you participate in: none ROS ROS Narrative 10 systems were reviewed with pertinent positives as noted in the HPI above. Physical Exam Const Constitutional Narrative: Somnolent but arousable with tactile stimulation. HEENT normocephalic and head/scalp atraumatic Eyes PERRL Neck supple General: trachea midline Chest inspection of chest normal Resp normal respiratory effort Auscultation: Negative for rales, rhonchi or wheezes Cardio regular rate and regular rhythm Cardio Narrative: Paced rhythm GI normal to inspection, nondistended, normoactive bowel sounds Extremity no clubbing, cyanosis or edema Extremity Narrative: No bleeding from groin vascular site. Skin no rashes or lesions noted Neuro no focal motor deficits Lab / Micro Data Result Diagrams: 04/30/22 03:50 04/30/22 03:50 Labs: Laboratory Results - last 24 hr 04/23/22 09:00: Blood Type O POSITIVE, Antibody Screen NEGATIVE, Crossmatch See Detail 04/29/22 12:05: WBC 20.0 H, RBC 3.52 L, Hgb 10.7 L, Hct 31.5 L, MCV 89.5, MCH 30.4, MCHC 34.0, RDW Std Deviation 42.1, RDW Coeff of Gilberto 13.0, Plt Count 227, MPV 10.0, Immature Gran % (Auto) 1.200 H, Neut % (Auto) 69.2, Lymph % (Auto) 24.2, Irion % (Auto) 4.3, Eos % (Auto) 0.7, Baso % (Auto) 0.4, Absolute Neuts (auto) 13.8 H, Absolute Lymphs (auto) 4.85 H, Nucleated RBC % 0 04/29/22 12:05: PT 15.1 H, INR 1.2, APTT 125.8 H* 04/29/22 12:05: Sodium 135 L, Potassium 5.8 H, Chloride 109 H, Carbon Dioxide 20.0 L, Anion Gap 6, BUN 22 H, Creatinine 1.24 H, Estim Creat Clear Calc 28.62, Est GFR (MDRD) Af Amer 54 L, Est GFR (MDRD) Non-Af 44 L, BUN/Creatinine Ratio 17.7, Glucose 377 H, Calcium 8.1 L Charges/Coding Procedures Hospitalists Procedures: 24063 Critial Care 1st Hr
--- NOTE | 2022-04-29 14:10 | RAD_ITS ---
STUDY: X-RAY CHEST REASON FOR EXAM: Female, 81 years old. Central Line Placement TECHNIQUE: Single AP portable view of the chest. COMPARISON: Comparison is made with prior study dated 05/01/2021. FINDINGS: A right-sided central venous catheter has been placed. The tip is at the junction of the superior vena cava and right atrium. The lungs are clear and expanded. There is no demonstrated pleural abnormality. Normal size heart. A left-sided chamber pacemaker is seen. Normal mediastinum and glenys. Normal visualized pulmonary arteries. There is atherosclerotic calcification of the aortic arch with tortuosity. Normal visualized thoracic spine. Normal visualized ribs, clavicles, and shoulders. There is no demonstrated abnormality of the visualized soft tissue structures of the upper abdomen. RAD/CXR for Line Placement IMPRESSION: A right-sided central venous catheter has been placed with the tip at the junction of the superior vena cava and right atrium. The remainder of the examination is unchanged. Electronically Signed: Archie Caceres MD at 14:30 EST ,
--- NOTE | 2022-04-29 14:14 | PCM.OP.BLANK ---
Operative Report Date of Procedure: 04/29/22 Central line placement procedure note Indication: IV access/hemodynamic instability/vasoactive medications Procedure: A time-out was completed to verify correct patient, indication, medication allergies, procedure, coagulation studies, informed consent signed, and equipment needed. The patient was placed in the supine position for a central line placement to the rt IJ vein. The patients rt neck was prepped using chlorhexidine and a full body sterile drape was applied. 1% lidocaine was used to anesthetize the surrounding skin. A 7fr 16 cm blue guard triple lumen catheter introduced into the internal jugular vein using the modified seldinger technique with the assistance of ultrasound. The catheter was threaded smoothly over the guidewire, the guidewire was removed easily, nonpulsatile blood returned. All ports were aspirated of air and flushed with sterile saline. The catheter was sutured in place and covered with an occlusive dressing impregnated with chlorhexidine. Post-procedure: The patient tolerated the procedure well. Vital signs remained stable. EBL 2 cc. No complications. Chest X Ray ordered to confirm tip placement and the absence of pneumothorax. Procedures Hospitalists Procedures: 26821 Insert Non-tunnel CV Cath
[2022-04-29] MEDS: Lactated Ringers 1,000 ML 999 ML IV (14:17)
[2022-04-29] MEDS: Ondansetron 4 MG/2 ML Vial IV ×2 (14:27→20:09)
[2022-04-29 14:40] LABS: Absolute Neutrophil Count 19.2 X10^3/uL (2.0-7.7); Basophil# 0.08 X10^3/uL; Basophil% 0.3 % (0-1); Eosinophil# 0.04 X10^3/uL; Eosinophils% 0.2 % (0-5); Hematocrit 36.8 % (37-47); Hemoglobin 12.4 g/dL (12.0-15.0); Lymphocyte % 13.4 % (19-41); Mean Corp Hgb Conc 33.7 g/dL (32-36); Mean Platelet Vol. 9.7 fl (6.2-12.0); Monocyte# 1.65 X10^3/uL; Monocyte% 6.7 % (0-10); NRBC Flagged by Analyzer 0 % (0-5); Neutrophil # 19.21 X10^3/uL (2.7-7.7); Neutrophil % 77.7 % (47-70); POSITIVE DIFFERENTIAL YES; Platelet Count 194 K/mm3 (150-450); RBC Distribution Width CV 13.1 % (11.6-14.6); RBC Distribution Width SD 43.6 fl (35.1-43.9); White Blood Count 24.7 K/mm3 (4.4-11.0)
[2022-04-29 14:55] LABS: ALB/GLOB Ratio 1.2 RATIO (0.9-2.4); AST(SGOT) 23 U/L (15-37); Alanine Aminotransfer ALT/SGPT 38 U/L (13-56); Albumin, Serum 2.7 g/dL (3.2-5.0); Alkaline Phosphatase 59 U/L (45-117); Anion Gap 8 (5-15); BUN 22 mg/dL (7-18); BUN/Creat Ratio 15.4 RATIO (10-20); Calcium,Total 7.8 mg/dL (8.5-10.1); Chloride 109 mmol/L (98-107); Creatinine, Serum 1.43 mg/dL (0.55-1.02); EST Glomerular Filtration Rate 38 mL/min (>60); Est Glom Filt Rate - Afr Amer 45 mL/min (>60); Estimated Creatinine Clearance 24.82 ml/min; Globulin 2.3 g/dL (2.2-4.2); Glucose 379 mg/dL (74-106); Magnesium 1.8 mg/dL (1.6-2.6); Potassium 5.4 mmol/L (3.5-5.1); Sodium Level 138 mmol/L (136-145)
[2022-04-29 14:56] LABS: Differential Indicated SCAN CRITERIA MET
[2022-04-29] MEDS: 0.9% Normal Saline 1,000 ML 100 ML IV ×2 (15:08→23:59)
[2022-04-29 15:40] LABS: ACT Activated Clotting Time 245 sec (74-137)
[2022-04-29 15:41] LABS: ACT Activated Clotting Time 209 sec (74-137)
--- NOTE | 2022-04-29 18:01 | PCM.OPRPT ---
Report of Operation Date of Procedure: 04/29/22 Pre-Operative Diagnosis: renal artery stenosis, bilateral Post-Operative Diagnosis: right renal occlusion, left renal mild stenosis Surgery/Procedure Performed:: Aortogram Right renal angioplasty/stenting; coil embolization IVUS right renal Right common iliac angioplasty Description of Surgical Findings:: high grade right renal stenosis, resolved after intervention but with severe spasm distally; eventual discovery of distal renal artery perforation and occlusion after coiling Surgeon: Anibal García Type of Anesthesia: Local and Sedation,Conscious Description of Procedure: HPI: Patient is an 81-year-old female with known renal artery stenosis with worsening hypertension as well as worsening creatinine. Her last duplex was proximally 2 years prior which showed high-grade stenosis of the right renal artery and moderate to severe of the left. She is taken now for aortogram with possible renal intervention. Description of procedure: Upon obtaining form consent and verification correct patient procedure site patient was taken the Equipment Validation Specialist where she was positioned prepped and draped in the usual sterile fashion. Time was performed conscious sedation was administered with intermittent doses of Versed and fentanyl. Skin overlying the right femoral artery was anesthetized 1% lidocaine and under ultrasound guidance the vessels accessed in retrograde fashion using micropuncture needle and wire. This then exchanged out for micropuncture sheath through which hand-injection iliofemoral angiogram was performed revealed satisfactory placement no extravasation or dissection. Bentson wire was advanced and the micropuncture sheath exchanged out for a short 5 Bolivian sheath. Using Bentson wire and angled glide catheter we attempted navigate the iliac system however there was resistance in the mid common iliac artery. The wire was withdrawn and hand-injection revealed calcified short segment stenosis that was eccentric on the medial aspect of the vessel. Further review to navigate around and treat the renal arteries and deal with the iliacs at a later date so the glide catheter and Bentson wire used to navigate around the abrupt occlusion ultimately navigate into the aorta. Omni Flush catheter was then advanced over the Bentson wire and positioned in the mid abdominal aorta and a digital traction aortogram performed. This revealed the location of the renal arteries, with the left renal artery being mildly diseased with calcification but no significant stenosis in the right renal artery being near total occlusion. There was antegrade filling of the renal artery but no visualized lumen at the area of tight stenosis. [place] this was still worth attempting intervention so the patient was heparinized and a banshee catheter along with a 014 command wire were used to engage the ostia of the right renal artery. Actually surprisingly easily crossed the lesion and were able to advance it into the mid to distal renal artery. The Elida catheter then exchanged out for a quick cross catheter that was able to be advanced through the lesion with some resistance though ultimately able to successfully cross. The wire was withdrawn and hand-injection renal selective angiograms performed which revealed satisfactory position with no extravasation or dissection, filling of all of the pelvic branches of the renal artery, but no gross visualization of the collecting system. The vessel did appear to be better caliber than after the aortic injection this was whether this was still worth intervention. A command 18 wire was then advanced through the catheter and the catheter withdrawn and the right renal artery was sequentially balloon dilated first with a 2 mm then a 3 mm angioplasty balloon in order to help facilitate larger catheter and wire placement. Next an 035 quick cross catheter was advanced over the wire and the command wire exchanged out for a short tipped Amplatz wire. Then withdrew the catheter and exchanged the short 5 Bolivian sheath for a 7 Bolivian Oscor steerable sheath. When attempting to advance this it hung up at the mid iliac at the point of the stenosis and it was clear that this was not been to be able to be advanced. Next a 5 mm x 2 angioplasty was advanced through the sheath in the position at the iliac lesion inflated to nominal for 3 minutes then deflated withdrawn. The dilator then reintroduced and the sheath able be advanced into the aorta ultimately to the ostia of the right renal artery. This position hand-injection renal angiography was performed via the sheath which revealed continued satisfactory presence within the true lumen and there was better antegrade flow across the ostia there was a small area of extravasation in one of the renal parenchymal branches that appeared empty into the collecting system that already diminished incised after a couple of subsequent images. Further this this persisted we would do with at the completion of the procedure but that given its very peripheral location from the vasculature that it would likely resolve spontaneously. Next an intravascular ultrasound probe was advanced over the wire and digital recorded pullback of the right renal artery performed confirming lesion extent as well as reference vessel size. Next return attention to treating the renal stenosis, and a 5 x 2 angioscope balloon was advanced in the position inflated for 3 minutes to nominal and then deflated withdrawn. This point the patient upon balloon deflation became very diaphoretic and nauseous however she remained hemodynamically stable. Multiple images of the right renal artery were taken to ensure that there was no perforation or rupture, and none was visualized. Patient is nausea and pain rapidly improved, it was felt that stent would be appropriate. Next a 6 x 19 Zanoni Viabahn VBX balloon expandable stent was advanced via the 7 Bolivian sheath and positioned at the renal ostia. This was then inflated to nominal deflated and withdrawn. Again the patient had significant nausea and diaphoresis with intact vital signs and subsequent imaging again revealed no extravasation or dissection aside from the small peripheral branch in the renal parenchyma. Again her nausea improved this time less rapidly but there did not appear to be any hemodynamic compromise. There was a significant amount of spasm in the distal vasculature and fairly stagnated flow through the distal vessel beyond the stent with poor filling of the parenchymal branches. Patient's nausea and diaphoresis suddenly resolved and we took a follow-up selective angiogram which revealed the spasm and also resolved and again no additional extravasation was identified. It was felt that the air in the parenchyma would potentially need to be addressed so the command 14 wire and quick cross catheter were then used to navigate the renal artery towards the pelvic branches, but difficulty was encountered taking the tortuosity. The wires then drawn and hand-injection via the catheter showed what appeared to be a focal dissection which her catheter had advanced into that emptied rapidly but no obvious extravasation. The catheter was then pulled back and additional imaging taken, and there is again spasm with delayed contrast transit but no extravasation or even dissection visualized. We then pulled back further into the main renal artery within the stent, and imaging again revealed slow contrast transit with no extravasation no dissection. Is felt that further mid relation to renal artery would result in further spasm and/or dissection was felt that no intervention at this time will be undertaken. The cath was then pulled back into the aorta and exchanged for a flush catheter and a flush aorta gram was performed which revealed filling of contrast across the stent with no extravasation or dissection. Patient's nausea diaphoresis continued to be resolved and she remained hemodynamically stable it was felt that no intervention or further investigation was required. The long 7 Bolivian sheath was exchanged out for a short 7 Bolivian sheath and a minx closure device deployed. Several minutes later as the patient remained in the table her diaphoresis and nausea returned and as well as bouts of intermittent hypotension followed by severe hypertension and she was very labile blood pressure and began to feel subjectively worse. Given the concerns for the parenchymal perforation as well as her hemodynamic status felt that the imaging was necessary the patient was reprepped in the right groin access. After ultrasound micropuncture access and 5 Bolivian sheath attempted navigated iliac artery and again had significant difficulty getting beyond the area of plaque. Despite multiple efforts with glide catheter Glidewire unable to navigate so we then prepped the right brachial artery and obtain access under ultrasound with ultrasound guidance in a retrograde fashion. Micropuncture sheath and exchanged out for a short 5 Bolivian sheath and using a 5 Bolivian sheath we are to navigate the aortic arch and ultimately into the thoracic and abdominal aorta. Repeat aortogram revealed no large volume extravasation, but with selective cannulation of the renal will be required to fully confirm in the significant process. Within attempt to access from the brachial artery we decided to traverse the iliac artery from above and ultimately were able to cannulate to the 5 Bolivian sheath that was in the right groin and advanced through the sheath and exteriorize her wire. Over this we then advanced a angled catheter in position within the abdominal aorta. Using a catheter and Bentson wire we selectively cannulated the right renal artery stent and from this position we took selective renal angiography of the right. This again demonstrated the area of what looks like dissection on the earlier imaging, as well as the area within the renal parenchyma emptying of the collecting system. Additionally there is a second location at the superior pole of the kidney that also appear to be extravasating the collecting system out in the parenchyma. Is felt that between the renal parenchyma extravasation and the uncertainty of the main renal artery dissection versus perforation that embolization of the vessel was the safest course to avoid any ongoing hemorrhage. A J-wire was then advanced via the catheter and the catheter withdrawn and a 4 mm angioplasty balloon placed within the renal origin and inflated to maintain hemostasis while coils were obtained and prepped. When close were prepared the balloon was deflated withdrawn and the angled catheter advanced and positioned in the proximal portion of the stent. A total of three 5 mm [employer] coils were then packed into the mid to distal main renal artery. Repeat angiogram confirmed no antegrade flow beyond the coils. Is felt that no further intervention was required, and the patient's blood pressure seem to become less labile with some need for Levophed. By this time we also initiated transfusion of 1 unit of blood given our known blood loss, while labs were being obtained. The cath was then withdrawn and the sheath pulled out into the distal external artery, where angiography was performed to confirm satisfactory placement given the haste with access was obtained. This was then drawn a minute pressure held. Right brachial sheath was then withdrawn a minute pressure held after which aspect hemostasis was noted from both locations. The continue be palpable pulse in the right radial artery and good capillary refill. This point given all of the hemodynamic changes and need for Levophed the patient was admitted to intensive care unit for serial labs hemodynamic support and vascular monitoring. Complications perforation of renal artery
[2022-04-29] MEDS: TITRATION PARAMETER CHANGE 1 EACH IV (18:05)
[2022-04-29 20:11] LABS: Hematocrit 38.9 % (37-47); Hemoglobin 13.2 g/dL (12.0-15.0)
[2022-04-29] MEDS: Flecainide 100 MG Tablet PO (21:11)
[2022-04-29] MEDS: MELATONIN 3 MG TABLET PO (21:11)
[2022-04-29] MEDS: Acetaminophen 325 MG Tablet 650 MG PO (21:11)
[2022-04-30] VITALS (19 sets, daily range): BP systolic 107–167; BP diastolic 45–59; PULSE 60–76; RESP 14–23; TEMP 37–37.7; O2SAT 87–100
[2022-04-30 04:02] LABS: Absolute Lymphocyte Count 1.38 X10^3/uL (0.83-4.51); Absolute Neutrophil Count 10.1 X10^3/uL (2.0-7.7); Basophil# 0.01 X10^3/uL; Basophil% 0.1 % (0-1); Hematocrit 30.6 % (37-47); Hemoglobin 10.3 g/dL (12.0-15.0); Lymphocyte # 1.38 X10^3/ul (0.83-4.51); Lymphocyte % 11.1 % (19-41); Mean Corp Hgb Conc 33.7 g/dL (32-36); Mean Corpuscular Hgb 30.4 pg (27.0-32.0); Mean Corpuscular Volume 90.3 fL (81-99); Mean Platelet Vol. 10.1 fl (6.2-12.0); Monocyte# 0.86 X10^3/uL; Monocyte% 6.9 % (0-10); NRBC Flagged by Analyzer 0 % (0-5); Neutrophil # 10.11 X10^3/uL (2.7-7.7); Neutrophil % 81.6 % (47-70); Platelet Count 117 K/mm3 (150-450); RBC Distribution Width CV 13.6 % (11.6-14.6); RBC Distribution Width SD 44.4 fl (35.1-43.9); Red Blood Count 3.39 M/mm3 (4.2-5.4); White Blood Count 12.4 K/mm3 (4.4-11.0)
[2022-04-30] MEDS: Acetaminophen 325 MG Tablet 650 MG PO ×3 (04:03→19:30)
[2022-04-30 04:12] LABS: International Normalized Ratio 1.1; Prothrombin Time (Protime)PT. 14.4 SECONDS (11.7-14.9)
[2022-04-30 04:33] LABS: AST(SGOT) 32 U/L (15-37); Alanine Aminotransfer ALT/SGPT 39 U/L (13-56); Albumin, Serum 2.5 g/dL (3.2-5.0); Alkaline Phosphatase 46 U/L (45-117); Anion Gap 8 (5-15); BUN 30 mg/dL (7-18); BUN/Creat Ratio 19.4 RATIO (10-20); Calcium,Total 7.5 mg/dL (8.5-10.1); Chloride 112 mmol/L (98-107); Creatinine, Serum 1.55 mg/dL (0.55-1.02); EST Glomerular Filtration Rate 34 mL/min (>60); Est Glom Filt Rate - Afr Amer 41 mL/min (>60); Estimated Creatinine Clearance 21.84 ml/min; Globulin 2.4 g/dL (2.2-4.2); Glucose 153 mg/dL (74-106); Magnesium 1.8 mg/dL (1.6-2.6); Phosphorus 3.9 mg/dL (2.5-4.9); Potassium 4.4 mmol/L (3.5-5.1); Protein, Total 4.9 g/dL (6.4-8.2); Sodium Level 142 mmol/L (136-145)
--- NOTE | 2022-04-30 06:08 | PN.CC_ITS ---
Assessment & Plan Assessment/Plan (1) Hemorrhagic shock: PLAN: Plan RECOMMENDATIONS: 1. Continue to trend H&H and transfuse if hemoglobin drops below 7 g/dL. 2. Continue gentle IV fluid hydration. 3. Mobilization and dietary advancement per vascular surgery. 4. Continue to hold home antihypertensives. 5. Encourage incentive spirometer use while in bed. IMPRESSIONS: 1. Bilateral renal artery stenosis status post right renal angioplasty, complicated by perforation leading to hemorrhagic shock The patient was transferred to the medical intensive care unit postprocedure with hypotension, ultimately requiring the initiation of vasopressor support. With IV fluid resuscitation and transfusion of blood products, the patient stabilized from a hemodynamic perspective, and has been weaned from vasopressor support. Plan to continue to monitor H&H throughout the day and transfuse if hemoglobin drops below 7 g/dL. 2. Acute kidney injury Likely prerenal in etiology in the setting of hemorrhagic shock requiring vasopressor support. Anticipate improvement in creatinine with stabilization of hemodynamics. Continue to monitor urine output. No current indication for renal replacement therapy. 3. History of hypertension/obesity Complicates care, management, recovery and prognosis. Continue to hold home antihypertensives for now, given tenuous hemodynamics. This note was generated with [employer] dictation software. It may contain incorrect words, spelling, and punctuation that were not noted in checking the note before signing. Subjective Subjective The patient was seen and examined at the bedside this morning. Events from the last 24 hours have been reviewed. The patient is currently afebrile, hemodynamically stable and maintaining appropriate oxygen saturations on room air. The patient has received 2 units packed red blood cells to date. Hemoglobin is stable this morning at 10.3 g/dL. The patient's Levophed was able to be weaned off completely last evening. The patient does report some nonfocal abdominal pain along with low back pain, which she attributes to laying in bed overnight. Objective Data Objective Data The patient's most recent lab work, culture data and imaging studies have all been personally reviewed. Vital Signs: Vital Signs Temp Pulse Resp BP Pulse Ox O2 Del Method O2 Flow Rate 99.9 F H 62 16 129/48 H 98 Nasal Cannula 1 04/30/22 04:24 04/30/22 04:24 04/30/22 04:24 04/30/22 04:24 04/30/22 04:24 04/30/22 04:24 04/30/22 04:24 FiO2 2 04/30/22 00:00 Oxygen Flow Rate (L/min) 1 Oxygen Delivery Method Nasal Cannula Weight: 153 lb 0.013 oz Body Mass Index (BMI) 28.1 Intake & Output: Intake and Output for Last 24 Hours 04/28/22 04/29/22 04/30/22 23:59 23:59 23:59 Intake Total 2350.30 / 2350.30 Output Total 400 / 400 Balance 1950.30 / 1950.30 Lab / Micro Data Attestation: I reviewed the patient's lab results. Result Diagrams: 04/30/22 03:50 04/30/22 03:50 Labs: Laboratory Results - last 24 hr 04/23/22 09:00: Blood Type O POSITIVE, Antibody Screen NEGATIVE, Crossmatch See Detail 04/29/22 08:00: Hgb 13.2, Hct 38.9 04/29/22 09:30: Activated Clotting Time 245 H 04/29/22 10:05: Activated Clotting Time 209 H 04/29/22 12:05: WBC 20.0 H, RBC 3.52 L, Hgb 10.7 L, Hct 31.5 L, MCV 89.5, MCH 30.4, MCHC 34.0, RDW Std Deviation 42.1, RDW Coeff of Gilberto 13.0, Plt Count 227, MPV 10.0, Immature Gran % (Auto) 1.200 H, Neut % (Auto) 69.2, Lymph % (Auto) 24.2, [place] % (Auto) 4.3, Eos % (Auto) 0.7, Baso % (Auto) 0.4, Absolute Neuts (auto) 13.8 H, Absolute Lymphs (auto) 4.85 H, Nucleated RBC % 0 04/29/22 12:05: PT 15.1 H, INR 1.2, APTT 125.8 H* 04/29/22 12:05: Sodium 135 L, Potassium 5.8 H, Chloride 109 H, Carbon Dioxide 20.0 L, Anion Gap 6, BUN 22 H, Creatinine 1.24 H, Estim Creat Clear Calc 28.62, Est GFR (MDRD) Af Amer 54 L, Est GFR (MDRD) Non-Af 44 L, BUN/Creatinine Ratio 17.7, Glucose 377 H, Calcium 8.1 L 04/29/22 14:25: WBC 24.7 H, RBC 4.00 L, Hgb 12.4, Hct 36.8 L, MCV 92.0, MCH 31.0, MCHC 33.7, RDW Std Deviation 43.6, RDW Coeff of Gilberto 13.1, Plt Count 194, MPV 9.7, Immature Gran % (Auto) 1.700 H, Neut % (Auto) 77.7 H, Lymph % (Auto) 13.4 L, [place] % (Auto) 6.7, Eos % (Auto) 0.2, Baso % (Auto) 0.3, Absolute Neuts (auto) 19.2 H, Absolute Lymphs (auto) 3.30, Nucleated RBC % 0, Diff Path Review August04/29/22 14:25: Sodium 138, Potassium 5.4 H, Chloride 109 H, Carbon Dioxide 21.0, Anion Gap 8, BUN 22 H, Creatinine 1.43 H, Estim Creat Clear Calc 24.82, Est GFR (MDRD) Af Amer 45 L, Est GFR (MDRD) Non-Af 38 L, BUN/Creatinine Ratio 15.4, Glucose 379 H, Calcium 7.8 L, Magnesium 1.8, Total Bilirubin 0.80, AST 23, ALT 38, Alkaline Phosphatase 59, Total Protein 5.0 L, Albumin 2.7 L, Globulin 2.3, Albumin/Globulin Ratio 1.2 04/30/22 03:50: WBC 12.4 H, RBC 3.39 L, Hgb 10.3 L, Hct 30.6 L, MCV 90.3, MCH 30.4, MCHC 33.7, RDW Std Deviation 44.4 H, RDW Coeff of Gilberto 13.6, Plt Count 117 L, MPV 10.1, Immature Gran % (Auto) 0.300, Neut % (Auto) 81.6 H, Lymph % (Auto) 11.1 L, [place] % (Auto) 6.9, Eos % (Auto) 0.0, Baso % (Auto) 0.1, Absolute Neuts (auto) 10.1 H, Absolute Lymphs (auto) 1.38, Nucleated RBC % 0 04/30/22 03:50: PT 14.4, INR 1.1 04/30/22 03:50: Sodium 142, Potassium 4.4, Chloride 112 H, Carbon Dioxide 22.0, Anion Gap 8, BUN 30 H, Creatinine 1.55 H, Estim Creat Clear Calc 21.84, Est GFR (MDRD) Af Amer 41 L, Est GFR (MDRD) Non-Af 34 L, BUN/Creatinine Ratio 19.4, Glucose 153 H, Calcium 7.5 L, Phosphorus 3.9, Magnesium 1.8, Total Bilirubin 0.30, AST 32, ALT 39, Alkaline Phosphatase 46, Total Protein 4.9 L, Albumin 2.5 L, Globulin 2.4, Albumin/Globulin Ratio 1.0 Radiography Diagnostic Testing: Radiology Impression Chest X-Ray 04/29/22 14:10 IMPRESSION: A right-sided central venous catheter has been placed with the tip at the junction of the superior vena cava and right atrium. The remainder of the examination is unchanged. Electronically Signed: Archie Caceres MD at 14:30 EST , Physical Exam Const alert and no apparent distress General Appearance: cooperative HEENT normocephalic, head/scalp atraumatic and moist oral mucous membranes Eyes PERRL, EOMs intact bilaterally and conjunctivae normal Neck supple General: trachea midline Chest inspection of chest normal Resp normal respiratory effort Auscultation: Negative for rales, rhonchi or wheezes Cardio regular rate and regular rhythm Cardio Narrative: Paced rhythm GI normal to inspection, nondistended, normoactive bowel sounds Extremity no clubbing, cyanosis or edema Extremity Narrative: No bleeding from groin vascular site. Skin no rashes or lesions noted Neuro CN's II-XII intact bilaterally, moves all extremities and no focal motor deficits Psych cooperative and affect normal Charges/Coding Visit Charges Inpatient E&M: 62358 Subs Hosp L3
--- NOTE | 2022-04-30 08:19 | CT_ITS ---
STUDY: CT ABDOMEN AND PELVIS WITHOUT CONTRAST REASON FOR EXAM: Female, 81 years old. Abdominal pain -- s/p renal artery angiogram with intervention RADIATION DOSAGE (If Supplied By Facility): CTDIvol = ( 12.16 ) mGy, DLP = ( 613.74 ) mGycm TECHNIQUE: Transaxial images were obtained from the dome of the diaphragm to the symphysis pubis without oral contrast, and without intravenous contrast. Sagittal and coronal images were reconstructed. Individualized dose optimization techniques were used for this CT. COMPARISON: Comparison is made with prior study 12/16/2014. FINDINGS: Small right pleural effusion with right basilar atelectasis. 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 Coronary artery calcification. Normal liver. Contrast is seen within the gallbladder lumen most likely from prior angiogram. Normal spleen. Normal pancreas. Normal bilateral adrenal glands. There is evidence of a large right pararenal nephric hematoma with increased stranding. Occlusive or metallic coils are seen in the proximal portion of the right renal artery. Findings are in keeping with the large right perinephric hematoma most likely secondary to the interventional procedure. The hematoma extends into the right retroperitoneal region down to the right side of the pelvis. Normal left kidney. There is a small hiatal hernia. Normal small intestine. There are multiple colonic diverticula consistent with diverticulosis. The appendix is visualized and appears normal. There is diffuse atherosclerotic calcification of the abdominal aorta, without a demonstrated aneurysm. Normal inferior vena cava. Normal retroperitoneum. A GUAN catheter is seen within an empty urinary bladder. Normal abdominal wall. Disc space narrowing and minimal anterior listhesis of L4 on L5. CT/Abdomen/Pelvis without Cont IMPRESSION: Large right perinephric hematoma extending into the lower right retroperitoneal region and right hemipelvis secondary to prior occlusive coil placement in the right renal artery. Electronically Signed: Archie Caceres MD at 9:48 EST ,
[2022-04-30] MEDS: 0.9% Saline Lock 10 ML Syringe IV ×2 (09:07→12:15)
[2022-04-30] MEDS: Ondansetron 4 MG/2 ML Vial IV (09:07)
[2022-04-30] MEDS: 0.9% Normal Saline 1,000 ML 100 ML IV ×2 (10:28→20:33)
[2022-04-30] MEDS: Flecainide 100 MG Tablet PO ×2 (10:34→20:32)
[2022-04-30 12:23] LABS: Hematocrit 27.8 % (37-47); Hemoglobin 9.4 g/dL (12.0-15.0)
--- NOTE | 2022-04-30 13:45 | CASEMGMT ---
RN CM Face to Face with patient for initial transition planning/care coordination assessment. RN CM introduced self and role at [facility]. Patient lying in bed, alert and oriented. Patient willing to participate in assessment and is able to answer all questions appropriately. Care providers, pharmacy, and demographics verified. Patient wishes to discharge home, will monitor for HHC pending activity. Patient states she has no further needs or concerns at this time. CM to follow for discharge planning needs that may arise. PCP: Manjit Specialists: Ricky vascular; Marcelina FOOTE; Joseline Bueno RA Preferred Pharmacy: [facility] Insurance: [employer] [facility] Prescription Benefit: yes Living Will/HPOA: yes, Ren Walden LNOK: and daughter Living Arrangements: Patient lives with in a single story home with 2 steps and railing to enter the home. Patient states she is independent at home. Transportation: self DME/HHC: Patient has shower chair, grab bars, and walker at home. Patient denies previous HHC or SNF. Disposition Plan: Patient to discharge home with family support and follow-up plans in place. Josi SHI, RN, CM
--- NOTE | 2022-04-30 17:19 | PCM.PN.SRG ---
Subjective Subjective Patient is doing better this morning, alert and awake, less confused overall. No acute events overnight. She was able to be weaned off pressor support last evening and has been hemodynamically stable since. She has good urine output. Diet has been slowly advanced and she is tolerating well, nausea has subsided. She reports generalized abdominal and low back pain, otherwise no complaints. Objective Data Objective Data A&Ox3, NAD No F/C RRR Nonlabored respirations, no audbile wheeze/stridor, maintaining good O2 saturation on room air. Right groin access site without bleeding or significant hematoma. Abdomen normal to inspection, soft, mild tenderness to palpation Vital Signs: Vital Signs Temp Pulse Resp BP Pulse Ox O2 Del Method O2 Flow Rate 99.4 F H 62 20 H 162/59 H 95 Room Air 2 04/30/22 14:40 04/30/22 15:39 04/30/22 14:40 04/30/22 14:40 04/30/22 14:40 04/30/22 14:40 04/30/22 12:00 FiO2 87 04/30/22 08:00 Oxygen Flow Rate (L/min) 2 Oxygen Delivery Method Room Air Weight: 164 lb 10.965 oz Body Mass Index (BMI) 28.1 Intake & Output: Intake and Output for Last 24 Hours 04/28/22 04/29/22 04/30/22 23:59 23:59 23:59 Intake Total 2350.30 / 2350.30 1490 / 1490 Output Total 400 / 400 725 / 725 Balance 1950.30 / 1950.30 765 / 765 Lab / Micro Data Result Diagrams: 04/30/22 12:15 04/30/22 03:50 Labs: Laboratory Results - last 24 hr 04/23/22 09:00: Crossmatch See Detail 04/29/22 08:00: Hgb 13.2, Hct 38.9 04/30/22 03:50: WBC 12.4 H, RBC 3.39 L, Hgb 10.3 L, Hct 30.6 L, MCV 90.3, MCH 30.4, MCHC 33.7, RDW Std Deviation 44.4 H, RDW Coeff of Gilberto 13.6, Plt Count 117 L, MPV 10.1, Immature Gran % (Auto) 0.300, Neut % (Auto) 81.6 H, Lymph % (Auto) 11.1 L, [place] % (Auto) 6.9, Eos % (Auto) 0.0, Baso % (Auto) 0.1, Absolute Neuts (auto) 10.1 H, Absolute Lymphs (auto) 1.38, Nucleated RBC % 0 04/30/22 03:50: PT 14.4, INR 1.1 04/30/22 03:50: Sodium 142, Potassium 4.4, Chloride 112 H, Carbon Dioxide 22.0, Anion Gap 8, BUN 30 H, Creatinine 1.55 H, Estim Creat Clear Calc 21.84, Est GFR (MDRD) Af Amer 41 L, Est GFR (MDRD) Non-Af 34 L, BUN/Creatinine Ratio 19.4, Glucose 153 H, Calcium 7.5 L, Phosphorus 3.9, Magnesium 1.8, Total Bilirubin 0.30, AST 32, ALT 39, Alkaline Phosphatase 46, Total Protein 4.9 L, Albumin 2.5 L, Globulin 2.4, Albumin/Globulin Ratio 1.0 04/30/22 12:15: Hgb 9.4 L, Hct 27.8 L Radiography Diagnostic Testing: Radiology Impression Abdomen/Pelvis CT 04/30/22 08:19 IMPRESSION: Large right perinephric hematoma extending into the lower right retroperitoneal region and right hemipelvis secondary to prior occlusive coil placement in the right renal artery. Electronically Signed: Archie Caceres MD at 9:48 EST , Assessment & Plan Assessment/Plan (1) Renal artery stenosis, qagan t[place], bilateral: PLAN: Patient is s/p right renal angioplasty complicated by perforation which led to hemorrhagic shock. Patient is POD#1. She initially received 2 units PBRC and was initiated on pressors for hemodynamic support. She has required no further transfusions and was weaned off pressors. She has been hemodynamically stable with overall stable H&H. Good O2 saturations. Noncontrast CT revealed contained perinephric hematoma. She was understandably delirious during initial recovery, this seems to have resolved. She is alert and oriented, feeling much improved. She has had good urine output, tolerating advancement of diet. Plan to repeat labs in the morning. If she tolerates full diet and continues to remain stable overnight will plan for discharge tomorrow. Charges/Coding Visit Charges Inpatient E&M: 14284 Subs Hosp L1
[2022-04-30 20:48] LABS: Hematocrit 26.3 % (37-47); Hemoglobin 8.8 g/dL (12.0-15.0)
[2022-05-01] VITALS (10 sets, daily range): BP systolic 141–179; BP diastolic 50–66; PULSE 60–88; RESP 16–22; TEMP 37–37.3; O2SAT 85–96
[2022-05-01] MEDS: Acetaminophen 325 MG Tablet 650 MG PO ×3 (02:14→14:21)
[2022-05-01] MEDS: MELATONIN 3 MG TABLET PO (02:18)
[2022-05-01 02:37] LABS: Absolute Lymphocyte Count 1.33 X10^3/uL (0.83-4.51); Absolute Neutrophil Count 8.1 X10^3/uL (2.0-7.7); Basophil# 0.01 X10^3/uL; Basophil% 0.1 % (0-1); Eosinophil# 0.01 X10^3/uL; Eosinophils% 0.1 % (0-5); Hemoglobin 8.6 g/dL (12.0-15.0); Lymphocyte # 1.33 X10^3/ul (0.83-4.51); Lymphocyte % 12.9 % (19-41); Mean Corp Hgb Conc 33.1 g/dL (32-36); Mean Corpuscular Hgb 30.3 pg (27.0-32.0); Mean Corpuscular Volume 91.5 fL (81-99); Mean Platelet Vol. 9.9 fl (6.2-12.0); Monocyte# 0.84 X10^3/uL; Monocyte% 8.1 % (0-10); NRBC Flagged by Analyzer 0 % (0-5); Neutrophil # 8.09 X10^3/uL (2.7-7.7); Neutrophil % 78.3 % (47-70); POSITIVE COUNT YES; Platelet Count 86 K/mm3 (150-450); RBC Distribution Width CV 13.6 % (11.6-14.6); RBC Distribution Width SD 45.1 fl (35.1-43.9); Red Blood Count 2.84 M/mm3 (4.2-5.4); White Blood Count 10.3 K/mm3 (4.4-11.0)
[2022-05-01 02:51] LABS: ALB/GLOB Ratio 1.1 RATIO (0.9-2.4); AST(SGOT) 43 U/L (15-37); Alanine Aminotransfer ALT/SGPT 40 U/L (13-56); Albumin, Serum 2.9 g/dL (3.2-5.0); Alkaline Phosphatase 50 U/L (45-117); Anion Gap 4 (5-15); BUN 16 mg/dL (7-18); BUN/Creat Ratio 15.1 RATIO (10-20); Calcium,Total 7.8 mg/dL (8.5-10.1); Chloride 109 mmol/L (98-107); Creatinine, Serum 1.06 mg/dL (0.55-1.02); EST Glomerular Filtration Rate 53 mL/min (>60); Est Glom Filt Rate - Afr Amer 64 mL/min (>60); Estimated Creatinine Clearance 31.94 ml/min; Globulin 2.6 g/dL (2.2-4.2); Glucose 148 mg/dL (74-106); Potassium 3.4 mmol/L (3.5-5.1); Protein, Total 5.5 g/dL (6.4-8.2); Sodium Level 139 mmol/L (136-145)
--- NOTE | 2022-05-01 06:41 | PN.CC_ITS ---
Assessment & Plan Assessment/Plan (1) Hemorrhagic shock: PLAN: Plan RECOMMENDATIONS: 1. Continue to trend H&H and transfuse if hemoglobin drops below 7 g/dL. 2. Okay to stop continuous IV fluids. 3. Potassium repletion as ordered. 4. Encourage incentive spirometer use and mobilize patient as tolerated. 5. Resume home antihypertensive regimen. 6. Will sign off from a critical care perspective. Please call with any additional questions. IMPRESSIONS: 1. Bilateral renal artery stenosis status post right renal angioplasty, complicated by perforation leading to hemorrhagic shock The patient was transferred to the medical intensive care unit postprocedure with hypotension, ultimately requiring the initiation of vasopressor support. With IV fluid resuscitation and transfusion of blood products, the patient stabilized from a hemodynamic perspective, and has been weaned from vasopressor support. Plan to continue to monitor H&H and transfuse if hemoglobin drops below 7 g/dL. 2. Acute kidney injury Resolved. Likely prerenal in etiology in the setting of hemorrhagic shock requiring vasopressor support. Creatinine has normalized with IV fluid resuscitation. 3. History of hypertension/obesity Complicates care, management, recovery and prognosis. Okay to resume home antihypertensives. This note was generated with [employer] dictation software. It may contain incorrect words, spelling, and punctuation that were not noted in checking the note before signing. Subjective Subjective The patient was seen and examined at the bedside this morning. Events from the last 24 hours have been reviewed. The patient is currently afebrile, hemodynamically stable and maintaining appropriate oxygen saturations on room air. Blood pressures are again starting to increase. Hemoglobin remains stable. Creatinine has improved to 1.06. The patient still reports some mild abdominal discomfort and generalized weakness upon ambulating. Objective Data Objective Data The patient's most recent lab work, culture data and imaging studies have all been personally reviewed. Vital Signs: Vital Signs Temp Pulse Resp BP Pulse Ox O2 Del Method O2 Flow Rate 98.7 F 70 22 H 171/59 H 94 Room Air 2 05/01/22 02:05 05/01/22 02:05 05/01/22 02:05 05/01/22 02:05 05/01/22 02:05 05/01/22 02:05 04/30/22 12:00 FiO2 87 04/30/22 08:00 Oxygen Flow Rate (L/min) 2 Oxygen Delivery Method Room Air Weight: 165 lb 9.074 oz Body Mass Index (BMI) 28.1 Intake & Output: Intake and Output for Last 24 Hours 04/29/22 04/30/22 05/01/22 23:59 23:59 23:59 Intake Total 2350.30 / 2350.30 2730.00 / 2760.00 Output Total 400 / 400 1175 / 1175 Balance 1950.30 / 1950.30 1555.00 / 1585.00 Lab / Micro Data Attestation: I reviewed the patient's lab results. Result Diagrams: 05/01/22 02:26 05/01/22 02:26 Labs: Laboratory Results - last 24 hr 04/30/22 12:15: Hgb 9.4 L, Hct 27.8 L 04/30/22 20:37: Hgb 8.8 L, Hct 26.3 L 05/01/22 02:26: WBC 10.3, RBC 2.84 L, Hgb 8.6 L, Hct 26.0 L, MCV 91.5, MCH 30.3, MCHC 33.1, RDW Std Deviation 45.1 H, RDW Coeff of Gilberto 13.6, Plt Count 86 L, MPV 9.9, Immature Gran % (Auto) 0.500, Neut % (Auto) 78.3 H, Lymph % (Auto) 12.9 L, [place] % (Auto) 8.1, Eos % (Auto) 0.1, Baso % (Auto) 0.1, Absolute Neuts (auto) 8.1 H, Absolute Lymphs (auto) 1.33, Nucleated RBC % 0 05/01/22 02:26: Sodium 139, Potassium 3.4 L, Chloride 109 H, Carbon Dioxide 26.0, Anion Gap 4 L, BUN 16, Creatinine 1.06 H, Estim Creat Clear Calc 31.94, Est GFR (MDRD) Af Amer 64, Est GFR (MDRD) Non-Af 53 L, BUN/Creatinine Ratio 15.1, Glucose 148 H, Calcium 7.8 L, Total Bilirubin 0.60, AST 43 H, ALT 40, Alkaline Phosphatase 50, Total Protein 5.5 L, Albumin 2.9 L, Globulin 2.6, Albumin/Globulin Ratio 1.1 Radiography Diagnostic Testing: Radiology Impression Abdomen/Pelvis CT 04/30/22 08:19 IMPRESSION: Large right perinephric hematoma extending into the lower right retroperitoneal region and right hemipelvis secondary to prior occlusive coil placement in the right renal artery. Electronically Signed: Archie Caceres MD at 9:48 EST , Physical Exam Const alert, oriented x3 and no apparent distress Constitutional Narrative: Sitting in bedside recliner. General Appearance: cooperative HEENT normocephalic, head/scalp atraumatic and moist oral mucous membranes Eyes PERRL, EOMs intact bilaterally and conjunctivae normal Neck supple General: trachea midline Chest inspection of chest normal Resp normal respiratory effort Auscultation: Negative for rales, rhonchi or wheezes Cardio regular rate and regular rhythm Cardio Narrative: Paced rhythm GI normal to inspection, nondistended, normoactive bowel sounds Extremity no clubbing, cyanosis or edema Skin no rashes or lesions noted Neuro CN's II-XII intact bilaterally, moves all extremities and no focal motor defic its Psych cooperative and affect normal Charges/Coding Visit Charges Inpatient E&M: 71600 Subs Hosp L2
[2022-05-01] MEDS: Ondansetron 4 MG/2 ML Vial IV (08:05)
[2022-05-01] MEDS: 0.9% Saline Lock 10 ML Syringe IV (08:05)
[2022-05-01] MEDS: Potassium Chloride Oral Tablet 20 MEQ 40 MEQ PO (08:08)
[2022-05-01] MEDS: Flecainide 100 MG Tablet PO (08:09)
[2022-05-01] MEDS: Docusate Sodium 100 MG Capsule 200 MG PO (10:37)
[2022-05-01 11:40] LABS: Pathologist Review Reviewed
[2022-05-01] MEDS: Metoprolol Tartrate 25 MG Tablet 75 MG PO (15:01)
--- NOTE | 2022-05-01 17:26 | PCM.DC.SUM ---
Providers Date of Admission: 04/29/22 Primary Care Physician: Dr. Diana Saravia MD Consultations 04/29/22 18:14 Consult: Truck Hopper / Pulmonary Medicine Routine Consulting Provider: Pulmonary Medicine eva Ingram Reason for Consult: critical care EMERGENT Consult: No MD Notified: Yes Date Notified: 04/29/22 Time Notified: 14:00 Method of Notification: Verbal Reason For Visit: POSSIBLE RENAL STENT Diagnosis Discharge Diagnosis (1) Hemorrhagic shock: Status: Acute Code(s): R57.8 - Other shock Plan: -resolved, hgb stable after equilibration and some dilution; will recheck as outpatient -resuming lopressor and amlodipine at DC, will check BP over next few days and potentially resume others (2) Renal artery stenosis, tribe, bilateral: Status: Chronic Code(s): I70.1 - Atherosclerosis of renal artery Plan: -s/p right renal artery stenting complicated by vessel perforation requiring coil embolization Medications at Discharge Home Medications potassium chloride 20 mEq tablet,extended release(part/cryst) 20 meq PO BID 12/16/14 hydrochlorothiazide 12.5 mg capsule 12.5 mg PO QDAY 06/02/17 folic acid 1 mg tablet 5 mg PO DAILY 09/26/18 magnesium oxide 400 mg (241.3 mg magnesium) tablet 400 mg PO BID #180 tabs 07/11/19 evolocumab 140 mg/mL subcutaneous pen injector (Repatha SureClick) 140 mg subcut Q2W 01/01/20 krill oil 500 mg capsule 500 mg PO DAILY 10/30/20 cholecalciferol (vitamin D3) 25 mcg (1,000 unit) tablet 1,000 unit PO BID 05/09/21 flecainide 100 mg tablet 100 mg PO BID #180 tabs 05/16/21 losartan 100 mg tablet 100 mg PO DAILY #90 tabs 03/10/22 abatacept (with maltose) 250 mg intravenous solution See Rx Instructions .Route .COMPLEX 03/24/22 amlodipine 2.5 mg tablet 2.5 mg PO DAILY 03/24/22 melatonin 3 mg capsule 3 mg PO HS PRN Sleep 03/24/22 metoprolol tartrate 25 mg tablet 75 mg PO BID 03/24/22 multivitamin (Daily Multi-Vitamin tablet) 1 tab PO DAILY 03/24/22 vitamin B complex 1 tab PO DAILY 03/24/22 docusate sodium 100 mg capsule 200 mg PO BID 10 days #40 caps 05/01/22 oxycodone 5 mg capsule 5 mg PO Q8H PRN pain 4 days #12 [facility] 05/01/22 Hospital Course Operations - (Aortogram righr renal artery stent -->coil embolization ) Summary of Care Provided Hospital Course: The patient presented for outpatient aortogram with plans for renal intervention. The procedure was complicated by mid renal artery perforation beyond covered stent that required coil embolization. She was hemodynamically unstable at the completion of the procedure requiring low dose vasopressor support. She was transfused 2 untis of PRBC and given crystalloid resuscitation with weaning of pressor support overnight. She suffered GREGG from hypotension which resolved over following 48 hours. Hgb remained stable as did her hemodynamic status. She was gradually advanced on diet and progressive ambulation. On POD # 2 she was tolerating diet, voiding, ambulating, and prepared to be discharged home. Physical Exam Const alert, oriented x3, no apparent distress and healthy appearing General Appearance: cooperative; Negative for combative or lethargic Orientation / Consciousness: awake Exam Limitations: no limitations HEENT Head and Scalp: normocephalic and atraumatic Eyes EOMs intact bilaterally General Eye: normal appearance of both eyes Neck full ROM, no lymphadenopathy and thyroid normal General: trachea midline Thyroid: thyroid normal Lymph Lymphatic: Negative for no lymphadenopathy noted Resp normal respiratory effort and no use of accessory muscles Effort and Inspection: Negative for labored, stridor or audible wheezes Cardio regular rate and regular rhythm Peripheral Pulses: brachial pulses present and radial pulses present GI soft to palpation, non-tender and non-distended Back/Spine Cervical Spine: cervical ROM normal Extremity full ROM, normal capillary refill and no clubbing, cyanosis or edema Skin no rashes or lesions noted and no wounds Neuro oriented x3, CN's II-XII intact bilaterally, no focal motor deficits and no sensory deficits noted Psych thought process normal, cooperative, affect normal, speech normal and activity/motor behavior normal Weight / BMI Weight Weight: 165 lb 9.074 oz Body Mass Index (BMI) 28.1 ABG / Lab / Microbiology Data Result Diagrams: 05/01/22 02:26 05/01/22 02:26 Laboratory: Laboratory Results - last 24 hr 04/29/22 14:25: Diff Path Review Reviewed 04/30/22 20:37: Hgb 8.8 L, Hct 26.3 L 05/01/22 02:26: WBC 10.3, RBC 2.84 L, Hgb 8.6 L, Hct 26.0 L, MCV 91.5, MCH 30.3, MCHC 33.1, RDW Std Deviation 45.1 H, RDW Coeff of Gilberto 13.6, Plt Count 86 L, MPV 9.9, Immature Gran % (Auto) 0.500, Neut % (Auto) 78.3 H, Lymph % (Auto) 12.9 L, [place] % (Auto) 8.1, Eos % (Auto) 0.1, Baso % (Auto) 0.1, Absolute Neuts (auto) 8.1 H, Absolute Lymphs (auto) 1.33, Nucleated RBC % 0 05/01/22 02:26: Sodium 139, Potassium 3.4 L, Chloride 109 H, Carbon Dioxide 26.0, Anion Gap 4 L, BUN 16, Creatinine 1.06 H, Estim Creat Clear Calc 31.94, Est GFR (MDRD) Af Amer 64, Est GFR (MDRD) Non-Af 53 L, BUN/Creatinine Ratio 15.1, Glucose 148 H, Calcium 7.8 L, Total Bilirubin 0.60, AST 43 H, ALT 40, Alkaline Phosphatase 50, Total Protein 5.5 L, Albumin 2.9 L, Globulin 2.6, Albumin/Globulin Ratio 1.1 D/C Instructions Discharge Diet: No restrictions Discharge Activity: Return to Normal Activity and May Shower (tomorrow ) Lifting Restrictions: Not > 20 lbs for 10 days Call your doctor if your incision/area has: Sudden Increased Bleeding, Increased Pain/ Swelling, Increased Redness and Foul Smelling Discharge Call your doctor if you observe: Fever of 101 or Higher Remove Dressing in: 1 day Meaningful Use Info Meaningful Use Diagnoses (Choose all that apply): None applicable Discharge Plan Admission Admit Date/Time: 04/29/22 16:15 Primary Reason for Your Visit: renal artery stenosis Attending Provider: Anibal García Primary Care Provider: Diana Saravia Consulting Providers: Kit Apple ; Moses Cesar ; Yousif Siegel ; Leonard Rocha ; Lisset Bateman TALENT DEVELOPMENT MANAGER Instructions Additional Instructions / Restrictions: Check BP twice a day, contact office if elevated for instructions on medications to resume Discharge Orders/Prescriptions Prescriptions: New docusate sodium 100 mg Capsule 200 mg PO BID 10 Days Qty: 40 0RF oxycodone 5 mg capsule 5 mg PO Q8H PRN (Reason: pain) 4 Days Qty: 12 0RF Continued folic acid 1 mg tablet 5 mg PO DAILY Repatha SureClick 140 mg/mL pen injector 140 mg SC Q2W krill oil 500 mg capsule 500 mg PO DAILY abatacept (with maltose) 250 mg recon soln See Rx Instructions .ROUTE .COMPLEX Rx Instructions: Infuse 125mg IV [id number]; metoprolol tartrate 25 mg tablet 75 mg PO BID amlodipine 2.5 mg tablet 2.5 mg PO DAILY multivitamin [Daily Multi-Vitamin] Tablet 1 tab PO DAILY melatonin 3 mg capsule 3 mg PO HS PRN (Reason: Sleep) vitamin B complex Tablet 1 tab PO DAILY potassium chloride 20 MEQ tablet 20 meq PO BID cholecalciferol (vitamin D3) 25 mcg (1,000 unit) tablet 1,000 unit PO BID magnesium oxide 400 mg (241.3 mg magnesium) tablet 400 mg PO BID Qty: 180 3RF flecainide 100 mg tablet 100 mg PO BID Qty: 180 3RF Held hydrochlorothiazide 12.5 mg capsule 12.5 mg PO QDAY Hold Instructions: check BP twice a day, contact office if elevated for instructions on medications to resume losartan 100 mg tablet 100 mg PO DAILY Qty: 90 3RF Hold Instructions: check BP twice a day, contact office if elevated for instructions on medications to resume Referrals / Follow Up: Diana Saravia MD [Primary Care Provider] - Disposition Disposition (needs filled in before D/C Order can be placed): Home, Self Care
== END 2022-05-01 18:30 | disposition home or self-care (01) | DRG 673 ==
LOC: CLSP 16:24 → ICU 16:26
PROVIDERS: Internal Medicine Critical Care Medicine; Admitting Provider Surgery Trauma Surgery; PCP Internal Medicine; Referring Provider Surgery Trauma Surgery; Visit Provider Surgery Trauma Surgery
DX: I70.1 Atherosclerosis of renal artery (principal); R57.8 Other shock; N17.9 Acute kidney failure, unspecified; I70.209 Unspecified atherosclerosis of native arteries of extremities, unspecified extremity; I25.10 Atherosclerotic heart disease of native coronary artery without angina pectoris; I12.9 Hypertensive chronic kidney disease with stage 1 through stage 4 chronic kidney disease, or unspecified chronic kidney disease; E78.5 Hyperlipidemia, unspecified; N18.9 Chronic kidney disease, unspecified; D64.9 Anemia, unspecified; Z87.891 Personal history of nicotine dependence; E66.9 Obesity, unspecified; Z68.28 Body mass index [BMI] 28.0-28.9, adult
CPT/HCPCS: 36252; 36415; 37220; 37236; 37242; 37252; 51702; 71045; 74176; 76937; 80048; 80053; 83735; 84100; 85014; 85018; 85025; 85027; 85347; 85610; 85730; 86850; 86900; 86901; 86920; 93005; 97162; 97166; 97802; 99152; 99153; 99252; C1725; C1760; C1769; C1874; C1887; J7030; J7040; J7050; J7120; P9016; Q9967; A4216; C1751; C1773; C1894; G0463; J2405

== ENCOUNTER → 2022-05-05 | Outpatient (CLI) | payer MEDICARE, SELFPAY ==
[2022-05-05 12:12] LABS: Absolute Lymphocyte Count 1.22 X10^3/uL (0.83-4.51); Absolute Neutrophil Count 5.9 X10^3/uL (2.0-7.7); Basophil# 0.04 X10^3/uL; Basophil% 0.5 % (0-1); Eosinophil# 0.15 X10^3/uL; Eosinophils% 1.8 % (0-5); Hematocrit 26.8 % (37-47); Hemoglobin 8.7 g/dL (12.0-15.0); Lymphocyte # 1.22 X10^3/ul (0.83-4.51); Lymphocyte % 14.9 % (19-41); Mean Corp Hgb Conc 32.5 g/dL (32-36); Mean Corpuscular Hgb 30.1 pg (27.0-32.0); Mean Corpuscular Volume 92.7 fL (81-99); Mean Platelet Vol. 10.1 fl (6.2-12.0); Monocyte# 0.81 X10^3/uL; Monocyte% 9.9 % (0-10); NRBC Flagged by Analyzer 0.5 % (0-5); Neutrophil # 5.86 X10^3/uL (2.7-7.7); Neutrophil % 71.8 % (47-70); Platelet Count 220 K/mm3 (150-450); RBC Distribution Width CV 14.1 % (11.6-14.6); RBC Distribution Width SD 46.2 fl (35.1-43.9); Red Blood Count 2.89 M/mm3 (4.2-5.4); White Blood Count 8.2 K/mm3 (4.4-11.0)
[2022-05-05 12:37] LABS: AST(SGOT) 32 U/L (15-37); Alanine Aminotransfer ALT/SGPT 44 U/L (13-56); Albumin, Serum 3.1 g/dL (3.2-5.0); Alkaline Phosphatase 79 U/L (45-117); Anion Gap 6 (5-15); BUN 15 mg/dL (7-18); BUN/Creat Ratio 14.9 RATIO (10-20); Calcium,Total 8.7 mg/dL (8.5-10.1); Chloride 99 mmol/L (98-107); Creatinine, Serum 1.01 mg/dL (0.55-1.02); EST Glomerular Filtration Rate 56 mL/min (>60); Est Glom Filt Rate - Afr Amer 68 mL/min (>60); Globulin 3.1 g/dL (2.2-4.2); Glucose 112 mg/dL (74-106); Potassium 4.3 mmol/L (3.5-5.1); Protein, Total 6.2 g/dL (6.4-8.2); Sodium Level 134 mmol/L (136-145)
== END | disposition home or self-care (01) ==
LOC: LABSPEC 12:01
PROVIDERS: PCP Internal Medicine; Visit Provider Internal Medicine
DX: I11.9 Hypertensive heart disease without heart failure (principal)
CPT/HCPCS: 80053; 85025

== ENCOUNTER → 2022-05-14 | Outpatient (CLI) | payer MEDICARE, SELFPAY ==
[2022-05-14 14:27] LABS: Absolute Lymphocyte Count 1.73 X10^3/uL (0.83-4.51); Absolute Neutrophil Count 6.7 X10^3/uL (2.0-7.7); Basophil# 0.05 X10^3/uL; Basophil% 0.5 % (0-1); Eosinophil# 0.13 X10^3/uL; Eosinophils% 1.4 % (0-5); Hematocrit 33.5 % (37-47); Hemoglobin 10.8 g/dL (12.0-15.0); Lymphocyte # 1.73 X10^3/ul (0.83-4.51); Lymphocyte % 18.4 % (19-41); Mean Corp Hgb Conc 32.2 g/dL (32-36); Mean Corpuscular Hgb 29.4 pg (27.0-32.0); Mean Corpuscular Volume 91.3 fL (81-99); Mean Platelet Vol. 8.8 fl (6.2-12.0); Monocyte% 7.5 % (0-10); NRBC Flagged by Analyzer 0 % (0-5); Neutrophil # 6.72 X10^3/uL (2.7-7.7); Neutrophil % 71.6 % (47-70); Platelet Count 353 K/mm3 (150-450); RBC Distribution Width CV 14.8 % (11.6-14.6); RBC Distribution Width SD 48.8 fl (35.1-43.9); Red Blood Count 3.67 M/mm3 (4.2-5.4); White Blood Count 9.4 K/mm3 (4.4-11.0)
[2022-05-14 14:53] LABS: Anion Gap 8 (5-15); BUN 18 mg/dL (7-18); BUN/Creat Ratio 15.7 RATIO (10-20); Calcium,Total 9.6 mg/dL (8.5-10.1); Chloride 99 mmol/L (98-107); Creatinine, Serum 1.15 mg/dL (0.55-1.02); EST Glomerular Filtration Rate 48 mL/min (>60); Est Glom Filt Rate - Afr Amer 58 mL/min (>60); Glucose 129 mg/dL (74-106); Potassium 4.2 mmol/L (3.5-5.1); Sodium Level 135 mmol/L (136-145)
== END | disposition home or self-care (01) ==
LOC: LAB 14:14
PROVIDERS: PCP Internal Medicine; Visit Provider Surgery Trauma Surgery
DX: R55 Syncope and collapse (principal); N18.9 Chronic kidney disease, unspecified
CPT/HCPCS: 36415; 80048; 85025

== ENCOUNTER → 2022-06-12 | Outpatient (CLI) | payer MEDICARE, SELFPAY ==
--- NOTE | 2022-06-12 10:01 | BI_ITS ---
MAMMOGRAPHY - BILATERAL SCREENING REASON FOR EXAM: Female, 81 years old. Routine annual screening examination. PERTINENT HISTORY: Non-contributory. TECHNIQUE: Digital bilateral breast hannah (3D mammographic acquisition) in the CC and MLO projections. 2-D mediolateral oblique (MLO) and craniocaudad (CC) views of both breasts were obtained. CAD: Full Field Digital Mammography with Computer Added Detection was performed. COMPARISON: Comparison is made with prior study of 06/10/2021 and 06/07/2020 FINDINGS: Breast Composition: There are scattered areas of fibroglandular density. There are no dominant masses or suspicious calcifications. A pacemaker battery pack is once again seen in the left axillary region No other significant abnormalities are identified. There has been no significant change since the prior study. BI/SCRN MAMM (CAD)W/HANNAH BILAT IMPRESSION: Stable bilateral screening mammogram. Yearly follow-up mammogram recommended. (A) ASSESSMENT CATEGORY: BIRADS Category 1: Negative. A letter regarding these results will be sent to the patient by the facility within 30 days. Approximately 10% of breast cancers are not detected by mammography. A normal mammogram should not delay biopsy of a clinically suspicious abnormality. [id number] Electronically Signed: Archie Caceres MD at 10:55 EST ,
== END | disposition home or self-care (01) ==
LOC: OPBI 10:00
PROVIDERS: PCP Internal Medicine; Referring Provider Internal Medicine; Visit Provider Internal Medicine
DX: Z12.31 Encounter for screening mammogram for malignant neoplasm of breast (principal)
CPT/HCPCS: 77063; 77067

== ENCOUNTER 2022-06-15 10:30 | Outpatient (RCR) | payer MEDICARE, SELFPAY ==
--- NOTE | 2022-05-27 10:39 | HP.PTEVAL ---
Patient's Visit Information MALI PATEL is a 81 year old F referred to Physical Therapy by Dr. Diana Saravia MD with a diagnosis of Generalized weakness secondary to Hemorrhagic shock. Date of Evaluation: 05/19/22 Physical Therapist: Moody Tang DPT - Visit Plan Frequency: 3x /Week Duration: 4 Weeks Plan: Start with progressive endurance training, paying attention to calf pain from PAD. Work progressive movements with standing rest periods to calf symptoms. Add in core and BLE strengthening as tolerated. - Subjective Pt. is here today for her initial evaluation with diagnosis of generalized weakness. Pt. reports having post hemorrhagic shock after having surgery, right renal stent complicated by perforation requiring coil embolization. Pt. has had low Hgb levels and overall reduced tolerance to exercise and mobility. She also has a history of PAD causing pain in BLEs with walking and exercises. Pt. reports only being able to walk short distances secondary to pain in LEs. Pt. reports since her injury she has had much reduced energy levels. Pt. is sleeping well. She is hopeful to get back to all recreational activities and working out without limitations. Pt. has not been able to walk much due to leg pains. - Pain BLEs Pain Intensity (Out of 10): 0 Pain Intensity Range: 0, 5 - Objective POSTURE: Pt. has decent posture in stance. SLight FH posture. PALPATION: Pt. has no pain with palaption of BLEs. NEURO: Pt. has normal sensation throughout BLEs. Pt. has normal DTR of BLEs. ROM: Pt. has decent ROM throughout lumbar spine and BLEs NO pain with all testing. Pt. has slight tightness in B HS and hip flexors. Pt. does have some tightness in her calves as well. MMT: Pt. has decent BLE strength. 5-/5 throughout without increase in symptoms. Core strength- fair. GAIT: Pt. had fairly normal gait pattern, but does have increased B calf pain pretty quickly with in ~150-200' requiring standing rest periods to calm down. She was able to ambulate 378feet before requiring rest period secondary to fatigue and pain. - Balance/Special Test Scores Lower Extremity Functional Score: 49 TUG Test Time Seconds: 7 6 Minute Walk Test: 378feet with 2 standing rest periods secondary to calf pain. Stopped at 2:13 sec due to fatigue. - Goals Goal 1:: LTG: Pt. to be I with HEP for BLE strengthening and walking program. Goal Time Frame: 4-6 Weeks Goal 2:: LTG: pt. to be able to walk for 6 minutes with distances of 1200'+ with 0-2/10 pain in B calves. Goal Time Frame: 4-6 Weeks Goal 3:: LTG: Pt. to have increased BLE strength and core strength to 5/5 throughout. Goal Time Frame: 4-6 Weeks Goal 4:: STG: Pt. to be able to walk throughout stores with out need for rest periods secondary to pain or fatigue. Goal Time Frame: 2-4 Weeks - Rehabilitation Potential Physical Therapy Diagnosis: Pt. has signs and symptoms consistent with generalized weakness secondary to hemorrhagic shock landing her in ICU. Pt. has slight weakness in BLEs, but more evident is her reduced endurance. Pt. has decreased Hgb levels, but is elevating. She also has PAD resulting in higher levels of calf pain with increased walking. Pt. would benefit from PT to work on BLE strengthening and endurance training., Rehabilitation Potential: Good - Anticipated Interventions Patient/Client Instruction: Educate patient on: Condition, Plan of Care, Risk Factors, Benefits of Fitness Program For the Purpose of:: To foster healthy habits, To facilitate caregiver knowledge, To improve self management, To prevent re-injury, To improve ability to perform tasks related to life management Therapeutic Exercise to Include: Strength training, Power training, Endurance training, Body mechanics, Postural training, Gait and locomotor training, Passive ROM, Active ROM For the Purpose of:: To decrease pain, To increase ROM, To improve nutrient delivery to tissue, To increase oxygenation perfusion, To improve muscle performance and motor function, To improve ability to perform ADL's, To increase tolerance to activity/condition/position, To improve gait and locomotor functions, To improve health of tissue, To decrease soft tissue restriction, To increase flexibility/ROM Thank you for the opportunity to evaluate your patient. For Medicare and Medicare HMO plans, please review the plan of care and approve it. It will need to be FAXED BACK to us at [phone] for Medicare purposes. For Medicare only, by signing this I certify the plan of care. Please let me know if there are questions or concerns regarding this plan of care. Physician Signature: Date:
--- NOTE | 2022-06-15 13:10 | HP.PTDCSUM ---
It has been my pleasure to treat MALI PATEL referred by Dr. Diana Saravia MD, with the diagnosis of Generalized weakness secondary to Hemorrhagic shock for a total of 9 visit(s). Discharge Date: 06/15/22 Please see the following information for a summary of their discharge status. Subjective: Pt. reports overall doing well. She is still having some pain in her legs with increased walking, but does feel like she is walking further prior to having her pain. She did have some questions about blood thinners and how they may help her pain, I deferred to physician. She reports overall decreased fatigue with walking. BLEs Pain Intensity (Out of 10): 0 % Improvement: 50 Objective/Function: Pt. still is having increased pain with walking in grocery stores. She is tolerating the smaller stores better. 6 MWT: Pt. able to ambulate 954' without AD, but did have to take 4 breaks (standing) due to leg pain. overall she is moving better, but is still having some B leg pain. She reports no as much fatigue. I talked to her about a progressive walking program at home. Pt. consents. Pt .has 5/5 strength throughout BLEs. Goal 1:: LTG: Pt. to be I with HEP for BLE strengthening and walking program. Goal Progress: Goal Met Goal 2:: LTG: pt. to be able to walk for 6 minutes with distances of 1200'+ with 0-2/10 pain in B calves. Goal Progress: Progressing Goal 3:: LTG: Pt. to have increased BLE strength and core strength to 5/5 throughout. Goal Progress: Goal Met Goal 4:: STG: Pt. to be able to walk throughout stores with out need for rest periods secondary to pain or fatigue. Goal Progress: Progressing Plan: DC to HEP at this point in time. Discharge Comments: Pt. is doing well. She has drastically progressed her tolerance with walking and increased her BLE strength. Pt. is now at a point that she can start working on progressive walking I. I will DC her to a walking program at this point in time. If there are questions or concerns regarding this patient's physical therapy, please feel free to call me at [phone]. Thank you for the referral of this patient. Sincerely, Moody Tang, DPT Balance/Gait/Functional tests - Balance/Special Test Scores Lower Extremity Functional Score: 49 TUG Test Time Seconds: 7 Tug Test: <10 sec.=free mobile 6 Minute Walk Test: 954 feet 4 rest periods.
== END 2022-06-15 19:00 | disposition home or self-care (01) ==
LOC: PT 10:30
PROVIDERS: PCP Internal Medicine; Referring Provider Internal Medicine; Visit Provider Internal Medicine
DX: R53.1 Weakness (principal)
CPT/HCPCS: 97110; 97161; 97164

== ENCOUNTER 2022-07-16 10:00 | Outpatient (RCR) | payer MEDICARE, SELFPAY ==
[2022-07-02 10:11] VITALS: BP 148/84; PULSE 83; TEMP 35.7; BMI 27.6
--- NOTE | 2022-07-02 10:31 | PCM.WC.HP ---
History of Present Illness Date of Service: 07/02/22 Chief Complaint: Right heel wound x2 History of Wound: Patient is an 81-year-old female with history of rheumatoid arthritis, HTN, PAD, CAD, and pacemaker placement. She stated that she did get nocturnal numbness and tingling of the left lower extremity that was relieved by standing and walking. She also was noted to have 2 small wounds to the right heel and lateral foot with stable eschar. She was soaking foot daily in Epsom salt and had previously finished oral antibiotic course. She did follow-up with vascular surgeon, Dr. García and underwent revascularization of the left lower extremity in addition to renal arteries. Patient did state improvement following procedure in the left lower extremity. 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 Green did state to her that she is not to undergo debridement of the sites. [facility] Medical History Abnormal electrocardiogram CAD (coronary artery disease) CKD (chronic kidney disease) Essential hypertension HTN (hypertension) Hyperlipidemia Hypokalemia Mitral valve prolapse Near syncope Osteopenia PAC (premature atrial contraction) PAD (peripheral artery disease) Palpitations Paroxysmal atrial fibrillation Premature ventricular contractions PSVT (paroxysmal supraventricular tachycardia) Renal artery stenosis, [place], bilateral Rheumatic arteritis Sick sinus syndrome Stenosis of left carotid artery Home Medications potassium chloride 20 mEq tablet,extended release(part/cryst) 20 meq PO BID 12/16/14 [History Last Taken Unknown] hydrochlorothiazide 12.5 mg capsule 12.5 mg PO QDAY 06/02/17 [History Last Taken Unknown] folic acid 1 mg tablet 5 mg PO DAILY 09/26/18 [History Last Taken Unknown] magnesium oxide 400 mg (241.3 mg magnesium) tablet 400 mg PO BID #180 tabs 07/11/19 [Rx Last Taken Unknown] evolocumab 140 mg/mL subcutaneous pen injector (Repatha Oralick) 140 mg subcut Q2W 01/01/20 [History Last Taken Unknown] krill oil 500 mg capsule 500 mg PO DAILY 10/30/20 [History Last Taken Unknown] cholecalciferol (vitamin D3) 25 mcg (1,000 unit) tablet 1,000 unit PO BID 05/09/21 [History Last Taken Unknown] flecainide 100 mg tablet 100 mg PO BID #180 tabs 05/16/21 [Rx Last Taken 04/29/22] losartan 100 mg tablet 100 mg PO DAILY #90 tabs 03/10/22 [Rx Last Taken Unknown] abatacept (with maltose) 250 mg intravenous solution See Rx Instructions .Route .COMPLEX 03/24/22 [History Last Taken Unknown] amlodipine 2.5 mg tablet 2.5 mg PO DAILY 03/24/22 [History Last Taken 04/29/22] metoprolol tartrate 25 mg tablet 75 mg PO BID 03/24/22 [History Last Taken 04/29/22] multivitamin (Daily Multi-Vitamin tablet) 1 tab PO DAILY 03/24/22 [History Last Taken Unknown] vitamin B complex 1 tab PO DAILY 03/24/22 [History Last Taken Unknown] biotin 800 mcg tablet 800 mcg PO DAILY 06/29/22 [History Last Taken Unknown] vitamin E mixed 400 unit capsule 400 unit PO DAILY 06/29/22 [History Last Taken Unknown] Allergy/AdvReac Type Severity Reaction Status Date / Time methocarbamol [From Robaxin] AdvReac Severe Other Verified 06/29/22 11:35 procaine HCl [From Novocain] AdvReac Other Verified 06/29/22 11:35 statins AdvReac Unknown Other Uncoded 06/29/22 11:35 Family History Mother Myocardial infarction CAD (coronary artery disease) HLD (hyperlipidemia) Brother CAD (coronary artery disease) Surgical History History of foot surgery History of liver biopsy (~06/2020) History of tonsillectomy Hx of colonoscopy (~07/2020) Hx of dilation and curettage Hx of rotator cuff surgery Hx of sinus surgery Presence of cardiac pacemaker Social History Smoking Status: Former smoker alcohol intake: never substance use type: does not use what type of physical activity do you participate in: none ROS Constitutional Constitutional: Denies chills, fever(s) or malaise Eyes Eyes: Denies blurry vision, double vision or eye pain ENT HEENT: Denies dysphagia, nasal congestion or sore throat Cardiovascular Cardiovascular: Denies chest pain, fatigue or palpitations Respiratory/Chest Respiratory/Chest: Denies cough, shortness of breath at rest or wheezing Gastrointestinal Gastrointestinal: Denies abdominal pain, constipation, diarrhea, nausea or vomiting Genitourinary Genitourinary: Denies dysuria, urinary frequency, urinary hesitancy, urinary incontinence or urinary urgency Musculoskeletal Musculoskeletal: Denies joint pain, joint stiffness or joint swelling Integumentary Integumentary: Denies lesions, pruritus or rash Neurologic Neurologic: Denies dizziness, numbness or seizures Endocrine Endocrinology: Denies cold intolerance or heat intolerance Hematologic/Lymphatic Hematologic/Lymphatic: Denies easy bleeding or easy bruising Vital Signs Vital Signs Vital Signs: 07/02/22 10:11 Temperature 96.2 F L Temperature Source Temporal Pulse Rate 83 Blood Pressure 148/84 H Blood Pressure Mean 105 Blood Pressure Source Monitor Weight Weight: 68.492 kg Body Mass Index (BMI) 27.6 Physical Exam Const alert, oriented x3 and no apparent distress General Appearance: cooperative HEENT normocephalic Eyes General Eye: normal appearance of both eyes Neck General: normal visual inspection Lymph Lymphatic: no lymphadenopathy noted and no lymphedema noted Resp normal respiratory effort Cardio regular rate and regular rhythm Extremity normal capillary refill, no joint enlargement, no calf tenderness and no pedal edema Extremity Narrative: Right lower extremity: DP and PT pulses nonpalpable. Capillary fill time is less than 4 seconds to the digits. Patient did undergo revascularization recently. 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 There is no evidence of rubor overlying the medial eminence or bump neuritis. Hammertoe deformity of digit 2, 3, 4, 5 with crossover digit of 2 and 3 overlying the fourth digit. Cicatrix noted overlying digits at first metatarsophalangeal joint of the left foot status post first MPJ fusion and hammertoe correction. Digits are straight. Skin no rashes or lesions noted, skin turgor normal and no jaundice Wound Narrative: Right heel ulceration and lateral foot ulceration both demonstrating stable eschar with no local signs of infection. Neuro moves all extremities Debridement Note Debridement Note No debridement was completed: No debridement was completed today Post-Debridement Measurements and Additional Note: Post-Debridement Measurements/Treatment WC - Nurse 1 - General Ulcer Assessment Start: 07/02/22 10:09 Freq: Status: Active Protocol: JEFF Activity Type Activity Date Activity User E-sign Co-sign Detail Recorded Client Recorded Date Recorded By Document 07/02/22 10:11 [place] [id number] 07/02/22 10:30 [place] 07/02/22 10:11 WC - Today's Visit Information Type of service Initial Visit Arrival Mode Ambulatory Patient Identification Verified (Name & Yes ) Patient Requires Transmission-Based No Precautions Safety Precautions NA Height and Weight Height 5 ft 2 in Weight 68.492 kg Weight in Pounds 151.0 lbs Body Mass Index (BMI) 27.6 BMI Classification Overweight BSA - Mihai 1.70 Vital Signs Temperature (97.8 F-99.1 F) 96.2 F L Temperature Source Temporal Pulse Rate (60-100) 83 Pulse Location Monitor Blood Pressure (90/60-120/80) 148/84 H Blood Pressure Mean 105 Source Monitor History Since Last Visit- (Skip if this is Patient's initial visit) Have you changed medications since your No last visit? Any new allergies or adverse reactions No Had a fall/change in ADL's that may No increase risk of falls Signs or symptoms of abuse and/or No neglect since last visit Have you been in the hospital since your No last visit? Has dressing in place as prescribed Yes Has compression in place as prescribed N/A Has offloadiing in place as prescribed N/A Experienced any changes in pain level or No management Left Footwear Surgical Shoe with pressure relief insole Right Footwear Regular Shoe Pain Scale: 0-10 Numeric Is Patient Pain Free? Yes - Nurse 1 - General Ulcer Measurement Start: 07/02/22 10:09 Freq: Status: Active Protocol: Activity Type Activity Date Activity User E-sign Co-sign Detail Recorded Client Recorded Date Recorded By Document 07/02/22 10:11 [place] [id number] 07/02/22 10:30 [place] 07/02/22 10:11 Wound Center Nurse 1 #2 R heel -Current Size (cm) - Length 0.5 -Current Size (cm) - Width 0.9 -Current Size (cm) - Depth 0.2 -Total Square Cm 0.45 -Date of Last Picture (Recall this 07/02/22 field) -Photo Taken Yes -Tunneling No -Undermining/Tunneling No -Circular Undermining No -Change in Wound Grade/Stage No -Exudate Amt None Present -Wound Margin Distinct, Outline Attached -Granulation Amt None Present (0 %) -Granulation Quality N/A -Slough/Fibrin Yes -Necrosis Amt Large (67-100%) -Necrotic Tissue Type Eschar -Structure Exposed N/A -Texture (Shanique-wound Skin Appearance) No Abnormality, Assessed -Moisture (Shanique-wound Skin Appearance) No Abnormality, Assessed -Color (Shanique-wound Skin Appearance) No Abnormality, Assessed -Temperature (Shanique-wound Skin No Abnormality Appearance) (Pt Warm) -Tenderness on Palpation (Shanique-wound No Skin Appearance) -Ulcer Cleansing Rinsed/ Irrigated with Saline -Foul Odor after Cleansing No #1 R lateral foot -Combined with other wound No -Current Size (cm) - Length 0.5 -Current Size (cm) - Width 0.4 -Current Size (cm) - Depth 0.1 -Total Square Cm 0.20 -Photo Taken Yes -Tunneling No -Undermining/Tunneling No -Circular Undermining No -Change in Wound Grade/Stage No -Exudate Amt None Present -Wound Margin Distinct, Outline Attached -Granulation Amt None Present (0 %) -Granulation Quality N/A -Slough/Fibrin Yes -Necrosis Amt Large (67-100%) -Necrotic Tissue Type Eschar -Structure Exposed N/A -Texture (Shanique-wound Skin Appearance) No Abnormality, Assessed -Moisture (Shanique-wound Skin Appearance) No Abnormality, Assessed -Color (Shanique-wound Skin Appearance) No Abnormality, Assessed -Temperature (Shanique-wound Skin No Abnormality Appearance) (Pt Warm) -Tenderness on Palpation (Shanique-wound No Skin Appearance) -Ulcer Cleansing Rinsed/ Irrigated with Saline -Foul Odor after Cleansing No Lower Limb Edema Present No Right Calf (cm) 33 Right Ankle (cm) 18 Left Calf (cm) 34 Left Ankle (cm) 17.5 Assessment/Plan Assessment/Plan (1) PAD (peripheral artery disease): CODE(S): I73.9 - Peripheral vascular disease, unspecified (2) Presence of cardiac pacemaker: CODE(S): Z95.0 - Presence of cardiac pacemaker (3) Rheumatoid arthritis: CODE(S): M06.9 - Rheumatoid arthritis, unspecified (4) Hyperlipidemia: CODE(S): E78.5 - Hyperlipidemia, unspecified QUALIFIERS: Hyperlipidemia type: unspecified Qualified Code(s): E78.5 - Hyperlipidemia, unspecified (5) Essential hypertension: CODE(S): I10 - Essential (primary) hypertension (6) Osteopenia: CODE(S): M85.80 - Other specified disorders of bone density and structure, unspecified site (7) CKD (chronic kidney disease): CODE(S): N18.9 - Chronic kidney disease, unspecified (8) Unstageable pressure ulcer of right foot: CODE(S): L89.890 - Pressure ulcer of other site, unstageable PLAN: Plan Patient seen and evaluated I discussed with her today that it is not advisable to soak her ulcerations in Epsom salt as this may lead to worsening of the ulcer sites. I did state that she may wash with soap and water and pat the area dry. She demonstrates ulceration to the right lateral heel with stable eschar covering. Ulcerative site measures 0.8 cm x 0.9 cm. Also demonstrates lateral foot ulceration just distal to the lateral malleolus with stable eschar covering measuring 0.5 cm x 0.4 cm. Ulcerative sites demonstrate no localized signs of infection. She did undergo revascularization of the lower extremity with Dr. García recently. I discussed with her that this will aid in her healing of her wounds. Patient is refusing debridement of her ulceration sites today. I did discuss debridement via Santyl application. She is amendable to this today. Rx Santyl. She is instructed to apply a pea-sized amount spread thinly over the wound site and dressed with dry sterile dressing. I did discuss with her that as this continues to debride the site it may drain with yellow fibrotic tissue in the wound bed which would need to undergo debridement to clear nonviable tissue. I also discussed possibility of advanced wound care product to aid in healing. Site dressed with dry sterile dressing today. She will begin application of Santyl with daily dressing changes to the right foot. Discussed forms of exercise that she may return to such as walking and cycling on stationary bike. Recommended 30 minutes of walking a day to continue to a blood flow and promote healthy lifestyle. Encouraged adequate protein intake and proper nutrition to aid in healing of her wound sites. The following work up and care recommendations were made: Dressing: Santyl, dry sterile dressing Wash: Soap and water Tissue growth optimization: Santyl Vascular: Has undergone revascularization of lower extremity. Edema: No edema noted Infection: No signs of infection Pain: May take over the counter Tylenol extra strength for discomfort Host factors: PVD, advanced age, rheumatoid arthritis I answered all the patient's questions. To return to the wound healing center in 2 weeks or call sooner if the patient has any questions or concerns.
[2022-07-16 10:02] VITALS: TEMP 35.6; BMI 27.6
--- NOTE | 2022-07-16 10:06 | PCM.WC.PN ---
History of Present Illness Date of Service: 07/16/22 Chief Complaint: Right heel wound x2 History of Wound: Patient is an 81-year-old female with history of rheumatoid arthritis, HTN, PAD, CAD, and pacemaker placement. She stated that she did get nocturnal numbness and tingling of the left lower extremity that was relieved by standing and walking. She also was noted to have 2 small wounds to the right heel and lateral foot with stable eschar. She was soaking foot daily in Epsom salt and had previously finished oral antibiotic course. She did follow-up with vascular surgeon, Dr. García and underwent revascularization of the left lower extremity in addition to renal arteries. Patient did state improvement following procedure in the left lower extremity. Patient states that her human resources district manager Dr. Green did state to her that she is not to undergo debridement of the sites. Subjective Subjective Patient is an 81-year-old female who presents to the wound care center today for follow-up of 2 wounds to the right foot. 1 to the lateral heel and 1 to the lateral foot. She has been applying Santyl daily with dry sterile dressing. She denies any constitutional symptoms today. She has no further complaints today. Objective Data Objective Data Vital Signs: Vital Signs Temp Pulse BP 96.1 F L 83 148/84 H 07/16/22 10:02 07/02/22 10:11 07/02/22 10:11 Weight: 68.492 kg Body Mass Index (BMI) 27.6 Physical Exam Const alert, oriented x3 and no apparent distress General Appearance: cooperative HEENT normocephalic Eyes General Eye: normal appearance of both eyes Neck General: normal visual inspection Lymph Lymphatic: no lymphadenopathy noted and no lymphedema noted Resp normal respiratory effort Cardio regular rate and regular rhythm Extremity normal capillary refill, no joint enlargement, no calf tenderness and no pedal edema Extremity Narrative: Right lower extremity: DP and PT pulses nonpalpable. Capillary fill time is less than 4 seconds to the digits. Patient did undergo revascularization recently. 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 There is no evidence of rubor overlying the medial eminence or bump neuritis. Hammertoe deformity of digit 2, 3, 4, 5 with crossover digit of 2 and 3 overlying the fourth digit. Cicatrix noted overlying digits at first metatarsophalangeal joint of the left foot status post first MPJ fusion and hammertoe correction. Digits are straight. Skin no rashes or lesions noted, skin turgor normal and no jaundice Wound Narrative: Right heel ulceration and lateral foot ulceration both demonstrating stable eschar with no local signs of infection. Neuro moves all extremities Debridement Note Debridement Note No debridement was completed: No debridement was completed today Post-Debridement Measurements and Additional Note: Post-Debridement Measurements/Treatment WC - Nurse 1 - General Ulcer Assessment Start: 07/02/22 10:09 Freq: Status: Active Protocol: JEFF Activity Type Activity Date Activity User E-sign Co-sign Detail Recorded Client Recorded Date Recorded By Document 07/02/22 10:11 AK [id number] 07/02/22 10:30 AK Document 07/16/22 10:02 EMILY [id number] 07/16/22 10:06 EMILY 07/02/22 07/16/22 10:11 10:02 - Today's Visit Information Type of service Initial Visit Follow-up Visit (Physician/[facility] ) Arrival Mode Ambulatory Ambulatory Patient Identification Verified (Name & Yes Yes ) Patient Requires Transmission-Based No No Precautions Safety Precautions NA Height and Weight Height 5 ft 2 in Weight 68.492 kg Weight in Pounds 151.0 lbs Body Mass Index (BMI) 27.6 27.6 BMI Classification Overweight Overweight BSA - Mihai 1.70 Vital Signs Temperature (97.8 F-99.1 F) 96.2 F L 96.1 F L Temperature Source Temporal Temporal Pulse Rate (60-100) 83 Pulse Location Monitor Blood Pressure (90/60-120/80) 148/84 H Blood Pressure Mean (mm Hg) 105 Source Monitor History Since Last Visit- (Skip if this is Patient's initial visit) Have you changed medications since your No No last visit? Any new allergies or adverse reactions No No Had a fall/change in ADL's that may No No increase risk of falls Signs or symptoms of abuse and/or No No neglect since last visit Have you been in the hospital since your No No last visit? Has dressing in place as prescribed Yes Yes Has compression in place as prescribed N/A N/A Has offloadiing in place as prescribed N/A Yes Experienced any changes in pain level or No management Left Footwear Surgical Shoe Regular Shoe with pressure relief insole Right Footwear Regular Shoe Surgical Shoe with pressure relief insole Pain Scale: 0-10 Numeric Is Patient Pain Free? Yes No right foot -Description Sharp -Intensity 7 -Duration (hours) Acute -Pain Behavior Restlessness, Facial Grimacing -Pain Aggravating Factors ADL's -Alleviating Factors/Interventions None WC - Nurse 1 - General Ulcer Measurement Start: 07/02/22 10:09 Freq: Status: Active Protocol: Activity Type Activity Date Activity User E-sign Co-sign Detail Recorded Client Recorded Date Recorded By Document 07/02/22 10:11 AK [id number] 07/02/22 10:30 AK Document 07/16/22 10:02 JF [id number] 07/16/22 10:06 JF 07/02/22 07/16/22 10:11 10:02 Wound Center Nurse 1 #2 R heel -Combined with other wound No -Current Size (cm) - Length 0.5 0.9 -Current Size (cm) - Width 0.9 0.7 -Current Size (cm) - Depth 0.2 0.2 -Total Square Cm 0.45 0.63 -Date of Last Picture (Recall this 07/02/22 field) -Photo Taken Yes Yes -Epithelialization None Present -Tunneling No No -Undermining/Tunneling No No -Circular Undermining No No -Change in Wound Grade/Stage No -Exudate Amt None Present None Present -Wound Margin Distinct, Flat & Intact Outline Attached -Granulation Amt None Present (0 None Present (0 %) %) -Granulation Quality N/A -Slough/Fibrin Yes Yes -Necrosis Amt Large (67-100%) Large (67-100%) -Necrotic Tissue Type Eschar Adherent Slough -Structure Exposed N/A N/A -Texture (Shanique-wound Skin Appearance) No Abnormality, Assessed Assessed -Moisture (Shanique-wound Skin Appearance) No Abnormality, Assessed Assessed -Color (Shanique-wound Skin Appearance) No Abnormality, Assessed Assessed -Temperature (Shanique-wound Skin No Abnormality No Abnormality Appearance) (Pt Warm) (Pt Warm) -Tenderness on Palpation (Shanique-wound No No Skin Appearance) -Ulcer Cleansing Rinsed/ Rinsed/ Irrigated with Irrigated with Saline Saline -Foul Odor after Cleansing No No #1 R lateral foot -Combined with other wound No No -Current Size (cm) - Length 0.5 0.5 -Current Size (cm) - Width 0.4 0.4 -Current Size (cm) - Depth 0.1 0.1 -Total Square Cm 0.20 0.20 -Photo Taken Yes Yes -Epithelialization None Present -Tunneling No No -Undermining/Tunneling No No -Circular Undermining No No -Change in Wound Grade/Stage No -Exudate Amt None Present None Present -Wound Margin Distinct, Flat & Intact Outline Attached -Granulation Amt None Present (0 None Present (0 %) %) -Granulation Quality N/A -Slough/Fibrin Yes Yes -Necrosis Amt Large (67-100%) Large (67-100%) -Necrotic Tissue Type Eschar Adherent Slough -Structure Exposed N/A N/A -Texture (Shanique-wound Skin Appearance) No Abnormality, Assessed Assessed -Moisture (Shanique-wound Skin Appearance) No Abnormality, Assessed,Dry/ Assessed Scaly -Color (Shanique-wound Skin Appearance) No Abnormality, Assessed Assessed -Temperature (Shanique-wound Skin No Abnormality No Abnormality Appearance) (Pt Warm) (Pt Warm) -Tenderness on Palpation (Shanique-wound No No Skin Appearance) -Ulcer Cleansing Rinsed/ Rinsed/ Irrigated with Irrigated with Saline Saline -Foul Odor after Cleansing No No Lower Limb Edema Present No NA Right Calf (cm) 33 Right Ankle (cm) 18 Left Calf (cm) 34 Left Ankle (cm) 17.5 WC - Nurse 2 - General Ulcer CM Notes Start: 07/02/22 10:09 Freq: Status: Active Protocol: Activity Type Activity Date Activity User E-sign Co-sign Detail Recorded Client Recorded Date Recorded By Document 07/02/22 11:56 PL [id number] 07/02/22 12:02 PL 07/02/22 11:56 Wound Center Nurse 2 #2 R heel -Time 10:38 -Procedure Performed No -Clinical Debridement Subcutaneous -Tissue Removed Subcutaneous -Post Debridement (cm) - Length 0.8 -Post Debridement (cm) - Width 0.9 -Post Debridement (cm) - Depth 0.1 -Total Square (Post) (cm) 0.72 -Tunneling No -Undermining/Tunneling No -Circular Undermining No -Wound/Ulcer Outcome Not Healed -Ulcer Cleansing Rinsed/ Irrigated with Saline -Foul Odor after Cleansing No -Bioengineered Tissue No -Bleeding Controlled with Pressure -Treatment Response Procedure Tolerated Well -Debridement - Subq, 1st 20sq cm No #1 R lateral foot -Time 10:38 -Procedure Performed No -Post Debridement (cm) - Length 0.5 -Post Debridement (cm) - Width 0.4 -Post Debridement (cm) - Depth 0.1 -Total Square (Post) (cm) 0.20 -Wound/Ulcer Outcome Not Healed -Ulcer Cleansing Rinsed/ Irrigated with Saline -Foul Odor after Cleansing No -Bioengineered Tissue No -Bleeding Controlled with Pressure -Treatment Response Procedure Tolerated Well Pain Scale: 0-10 Numeric Is Patient Pain Free? Yes WC - Nurse 3 - General Ulcer D/C NN Start: 07/02/22 10:09 Freq: Status: Active Protocol: Activity Type Activity Date Activity User E-sign Co-sign Detail Recorded Client Recorded Date Recorded By Document 07/02/22 10:52 ND [id number] 07/02/22 10:54 ND 07/02/22 10:52 Wound Care Center Nurse 3 #2 R heel -Ulcer Cleansing Rinsed/ Irrigated with Saline -Foul Odor after Cleansing No -Negative Pressure Wound Therapy N/A -Other Dressing hydrogel today the ordered santyl -Primary Dressing Covered/Secured with Dry Gauze & Roll Gauze #1 R lateral foot -Ulcer Cleansing Rinsed/ Irrigated with Saline -Foul Odor after Cleansing No -Negative Pressure Wound Therapy N/A -Other Dressing hydrogel today then santyl -Primary Dressing Covered/Secured with Dry Gauze & Roll Gauze, Secured with Tape Pain Scale: 0-10 Numeric Is Patient Pain Free? No WC - Visit Discharge Discharge Condition Stable Ambulatory Status Ambulatory Transportation Private Auto Medication Reconcilliation completed & Yes provided to patient/care provider Clinical Summary of Care Provided Yes Assessment/Plan Assessment/Plan (1) PAD (peripheral artery disease): CODE(S): I73.9 - Peripheral vascular disease, unspecified (2) Presence of cardiac pacemaker: CODE(S): Z95.0 - Presence of cardiac pacemaker (3) Rheumatoid arthritis: CODE(S): M06.9 - Rheumatoid arthritis, unspecified (4) Hyperlipidemia: CODE(S): E78.5 - Hyperlipidemia, unspecified QUALIFIERS: Hyperlipidemia type: unspecified Qualified Code(s): E78.5 - Hyperlipidemia, unspecified (5) Essential hypertension: CODE(S): I10 - Essential (primary) hypertension (6) Osteopenia: CODE(S): M85.80 - Other specified disorders of bone density and structure, unspecified site (7) CKD (chronic kidney disease): CODE(S): N18.9 - Chronic kidney disease, unspecified (8) Unstageable pressure ulcer of right foot: CODE(S): L89.890 - Pressure ulcer of other site, unstageable PLAN: Plan Patient seen and evaluated I discussed with her last visit that it is not advisable to soak her ulcerations in Epsom salt as this may lead to worsening of the ulcer sites. I did state that she may wash with soap and water and pat the area dry. She demonstrates ulceration to the right lateral heel with stable eschar covering. Ulcerative site measures 0.8 cm x 0.9 cm. Also demonstrates lateral foot ulceration just distal to the lateral malleolus with stable eschar covering measuring 0.5 cm x 0.4 cm. Ulcerative sites demonstrate no localized signs of infection. She did undergo revascularization of the lower extremity with Dr. García recently. I discussed with her that this will aid in her healing of her wounds. Patient is continuing to refuse debridement of her ulceration sites. I did discuss continued debridement via Santyl application. She is amendable to this. She has been instructed instructed to apply a pea-sized amount spread thinly over the wound site and dressed with dry sterile dressing. I did discuss with her that as this continues to debride the site it may drain with yellow fibrotic tissue in the wound bed which would need to undergo debridement to clear nonviable tissue. I also discussed possibility of advanced wound care product to aid in healing. Site dressed with dry sterile dressing today. She will continue with application of Santyl with daily dressing changes to the right foot. She feels that the wound is getting a little better and states that her human resources district manager, Dr. Green, who she normally follows with informed her not to have debridements performed. I discussed with her that she has refused to have debridements over the last 2 visits and is essentially refusing further intervention by me, and thus I have recommended that she should return to Dr. Genao for continued treatment. She is in agreement with this today. Discussed forms of exercise that she may return to such as walking and cycling on stationary bike. Recommended 30 minutes of walking a day to continue to a blood flow and promote healthy lifestyle. Encouraged adequate protein intake and proper nutrition to aid in healing of her wound sites. The following work up and care recommendations were made: Dressing: Santyl, dry sterile dressing Wash: Soap and water Tissue growth optimization: [place] Vascular: Has undergone revascularization of lower extremity. Edema: No edema noted Infection: No signs of infection Pain: May take over the counter Tylenol extra strength for discomfort Host factors: PVD, advanced age, rheumatoid arthritis I answered all the patient's questions. She is being discharged today from the wound care center and will return to her human resources district manager for routine visits for continued wound care. In the meantime until she is scheduled she may return to the wound center as needed or call sooner if the patient has any questions or concerns.
== END 2022-07-17 23:59 | disposition home or self-care (01) ==
LOC: WC 10:00
PROVIDERS: PCP Internal Medicine; Referring Provider Student in an Organized Health Care Education/Training Program; Visit Provider Student in an Organized Health Care Education/Training Program
DX: L89.890 Pressure ulcer of other site, unstageable (principal); M06.9 Rheumatoid arthritis, unspecified; I73.9 Peripheral vascular disease, unspecified; I48.0 Paroxysmal atrial fibrillation; N18.9 Chronic kidney disease, unspecified; M85.80 Other specified disorders of bone density and structure, unspecified site; I12.9 Hypertensive chronic kidney disease with stage 1 through stage 4 chronic kidney disease, or unspecified chronic kidney disease; I25.10 Atherosclerotic heart disease of native coronary artery without angina pectoris; E78.5 Hyperlipidemia, unspecified; Z79.899 Other long term (current) drug therapy; Z87.891 Personal history of nicotine dependence; Z95.0 Presence of cardiac pacemaker
CPT/HCPCS: 99213; G0463

== ENCOUNTER → 2022-07-17 | Outpatient (CLI) | payer MEDICARE, SELFPAY ==
--- NOTE | 2022-07-17 10:01 | ART_ITS ---
Reason For Study: PVD Procedure A bilateral lower extremity continuous wave Doppler with analog waveform analysis,segmental pressures,and ankle brachial indexes without exercise. Left Segmental Pressures Left brachial= 132mmHg. Left thigh = 85mmHg. Left calf = 72mmHg. Left posterior tibial artery = 64mmHg. Left dorsalis pedis artery = 67mmHg. Left digit = 23 mmHg. The left dorsalis pedis waveforms are monophasic. The left posterior tibial artery waveforms are monophasic. Right Segmental Pressures Right brachial= 127mmHg. Right thigh = 68mmHg. Right calf = 63mmHg. Right posterior tibial artery = 48mmHg. Right dorsalis pedis artery = 46mmHg. The right dorsalis pedis waveforms are monophasic. The right posterior tibial artery waveforms are monophasic. Indices The right ankle brachial index by the dorsalis pedis is 0.35. The right ankle brachial index by the posterior tibial artery is 0.36. The left ankle brachial index by the dorsalis pedis is 0.51. The left ankle brachial index by the posterior tibial artery is 0.48. VL/Lower Ext Art Exam w/o Exercis Interpretation Summary Right DAPHNE 0.36, severe arterial insufficiency. Doppler/PVR waveforms and segmen rachelle pressures reveal [id number] femoral disease. Left DAPHNE 0.51, severe arterial insufficiency. Doppler/PVR waveforms and segment al pressures reveal [id number] femoral disease. Ordering Physician: Daina Saravia Referring Physician: Diana Saravia M.D. Performed By: Josi Campbell RVT
== END | disposition home or self-care (01) ==
LOC: CVS 10:00
PROVIDERS: PCP Internal Medicine; Visit Provider Internal Medicine
DX: I73.9 Peripheral vascular disease, unspecified (principal)
CPT/HCPCS: 93923

== ENCOUNTER 2022-07-30 09:55 | Outpatient (RCR) | payer MEDICARE, SELFPAY | END 2022-08-16 23:59 | LOC: NS 09:55 | PROVIDERS: PCP Internal Medicine; Referring Provider Physician Assistant; Visit Provider Physician Assistant | DX: Z71.3 Dietary counseling and surveillance (principal); L89.890 Pressure ulcer of other site, unstageable; M06.9 Rheumatoid arthritis, unspecified; I73.9 Peripheral vascular disease, unspecified; N18.30 Chronic kidney disease, stage 3 unspecified; E78.5 Hyperlipidemia, unspecified; M85.80 Other specified disorders of bone density and structure, unspecified site | CPT/HCPCS: 97802 ==

== ENCOUNTER → 2022-08-17 | Outpatient (CLI) | payer MEDICARE, SELFPAY ==
--- NOTE | 2022-08-17 12:55 | CT_ITS ---
STUDY: CTA OF THE ABDOMINAL AORTA AND BILATERAL LOWER EXTREMITIES REASON FOR EXAM: Female, 81 years old. PAD with ulceration. History of renal artery stenosis. RADIATION DOSAGE (If Supplied By Facility): CTDIvol = ( 7.4 ) mGy, DLP = ( 1108.54 ) mGycm TECHNIQUE: Axial CT angiography multi-detector data acquisition was obtained from the dome of the liver to the level of the ankles following intravenous administration of IV 100mL Isovue-370. Axial images and MIP images were reconstructed from the axial data set. Post-processing of the angiographic images was performed, with multiplanar reformation and 3D reconstruction. Individualized dose optimization techniques were used for this CT. TECHNICAL QUALITY: Good COMPARISON: None. Descriptors of Narrowing: None (0%) Mild (< 50%) Moderate (50-70%) Severe (70-90%) Subtotal/Total Occlusion (90-100%) Non-Evaluable (technically non-diagnostic FINDINGS: Minimal linear scarring in the posterior segment of the right lower lobe. Small hiatal hernia. There is a marked degree of atrophy of the right kidney. There is evidence of a embolization coils of the right renal artery. No flow to the right kidney is seen. There is a 3.4 cm x 3.5 cm heterogeneous mass lesion in the mid and lower pole of the right kidney. Is also evidence of a 3.4 cm x 4.1 cm heterogeneous mass in the lower pole of the right kidney. Sigmoid diverticulosis. Abdominal aorta: Atherosclerotic calcification of the abdominal aorta. Distal abdominal aorta as a transverse dimension of 2.4 cm. There is evidence of mural thrombus arising along the right lateral wall of the abdominal aorta. Celiac and superior mesenteric arteries: No demonstrated narrowing. Inferior mesenteric artery: No demonstrated narrowing. Right renal artery(arteries): The right renal artery is not visualized. Left renal artery(arteries): Atherosclerotic plaque formation at the origin of left renal artery causing 50-60% narrowing. Right common iliac artery: Nonstenotic calcific plaques. Right external iliac artery: Nonstenotic calcific plaques. Right internal iliac artery: No demonstrated narrowing. Left common iliac artery: Nonstenotic calcific plaques. Left external iliac artery: Nonstenotic calcific plaques. Left internal iliac artery: No demonstrated narrowing. RIGHT LOWER EXTREMITY Right common femoral artery: Moderate stenosis of the right common femoral artery due to calcific plaque formation. Right profundus femoris: No demonstrated narrowing. Right superficial femoral: Multiple focal stenotic calcific plaques seen throughout the course of the superficial femoral artery. Right popliteal artery: Calcific plaques. Focal tight stenosis at the level of the knee joint. Right tibioperoneal trunk: No demonstrated narrowing. Right anterior tibial artery: No demonstrated narrowing. Right posterior tibial artery: No demonstrated narrowing. Right peroneal artery: No demonstrated narrowing. LEFT LOWER EXTREMITY Left common femoral artery: Mildly stenotic calcific plaques. Left profundus femoris: No demonstrated narrowing. Left superficial femoral: Calcific plaques seen throughout the course of the superficial femoral artery. Left popliteal artery: No demonstrated narrowing. Left tibioperoneal trunk: No demonstrated narrowing. Left anterior tibial artery: No demonstrated narrowing. Left posterior tibial artery: No demonstrated narrowing. Left peroneal artery: No demonstrated narrowing. CT/CTA Abd w/Runoff W/WO Contrast IMPRESSION: Multiple findings as discussed above. Electronically Signed: Archie Caceres MD at 8:56 EDT ,
[2022-08-17 13:35] LABS: CREATININE FINGERSTICK < 0.9 mg/dL (0.55-1.02); EGFR FINGERSTICK > 60.0000 mL/min (>60)
== END | disposition home or self-care (01) ==
LOC: CT 12:55
PROVIDERS: PCP Internal Medicine; Referring Provider Physician Assistant; Visit Provider Physician Assistant
DX: I73.9 Peripheral vascular disease, unspecified (principal); I70.0 Atherosclerosis of aorta
CPT/HCPCS: 75635; Q9967

== ENCOUNTER 2022-08-18 11:01 | Outpatient (RCR) | payer MEDICARE, SELFPAY | END 2022-09-16 23:59 | LOC: NS 11:01 | PROVIDERS: PCP Internal Medicine; Referring Provider Physician Assistant; Visit Provider Physician Assistant | DX: Z71.3 Dietary counseling and surveillance (principal); L89.890 Pressure ulcer of other site, unstageable; M06.9 Rheumatoid arthritis, unspecified; I73.9 Peripheral vascular disease, unspecified; N18.30 Chronic kidney disease, stage 3 unspecified; E78.5 Hyperlipidemia, unspecified; M85.80 Other specified disorders of bone density and structure, unspecified site; I10 Essential (primary) hypertension | CPT/HCPCS: 97803 ==

== ENCOUNTER 2022-08-27 08:58 | Outpatient (RCR) | payer MEDICARE, SELFPAY ==
[2022-07-18 02:19] VITALS: BP 148/84; PULSE 83; TEMP 35.6; BMI 27.6
[2022-08-27 09:15] VITALS: BP 161/75; PULSE 80; RESP 18; TEMP 35.9; BMI 27.6
--- NOTE | 2022-08-27 11:25 | HP.PCM_ITS ---
History of Present Illness Date of Service: 08/27/22 Chief Complaint: Right heel wound, Right medial foot wound, fourth digit wound History of Wound: Patient is an 81-year-old female with history of rheumatoid arthritis, HTN, PAD, CAD, and pacemaker placement. She stated that she did get nocturnal numbness and tingling of the left lower extremity that was relieved by standing and walking. 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 She did follow-up with vascular surgeon, Dr. García and underwent CTA with runoff to both lower extremities. Right lower extremity demonstrates severe arterial disease. She is scheduled to undergo angioplasty on 09/16/[address] García. She has continued to follow with her network planner, Dr. Genao. Patient states that the last time she was here in June 2022 that her network planner Dr. Green stated to her that she is not to undergo debridement of the sites. Patient wishes to continue with no debridement. She states that she would like to see orthopedic surgery at [facility] following her vascular procedure for correction of her right foot deformity and possible amputation of her fourth toe. [facility] Medical History Abnormal electrocardiogram CAD (coronary artery disease) CKD (chronic kidney disease) Essential hypertension HTN (hypertension) Hyperlipidemia Hypokalemia Mitral valve prolapse Near syncope Osteopenia PAC (premature atrial contraction) PAD (peripheral artery disease) Palpitations Paroxysmal atrial fibrillation Premature ventricular contractions PSVT (paroxysmal supraventricular tachycardia) Renal artery stenosis, deering, bilateral Rheumatic arteritis Sick sinus syndrome Stenosis of left carotid artery Home Medications potassium chloride 20 mEq tablet,extended release(part/cryst) 20 meq PO BID 12/16/14 [History Last Taken Unknown] folic acid 1 mg tablet 5 mg PO DAILY 09/26/18 [History Last Taken Unknown] magnesium oxide 400 mg (241.3 mg magnesium) tablet 400 mg PO BID #180 tabs 07/11/19 [Rx Last Taken Unknown] krill oil 500 mg capsule 300 mg PO DAILY 10/30/20 [History Last Taken Unknown] cholecalciferol (vitamin D3) 25 mcg (1,000 unit) tablet 1,000 unit PO BID 05/09/21 [History Last Taken Unknown] losartan 100 mg tablet 100 mg PO DAILY #90 tabs 03/10/22 [Rx Last Taken Unknown] metoprolol tartrate 25 mg tablet 75 mg PO BID 03/24/22 [History Last Taken 04/29/22] multivitamin (Daily Multi-Vitamin tablet) 1 tab PO DAILY 03/24/22 [History Last Taken Unknown] vitamin B complex 1 tab PO DAILY 03/24/22 [History Last Taken Unknown] vitamin E mixed 400 unit capsule 400 unit PO DAILY 06/29/22 [History Last Taken Unknown] flecainide 100 mg tablet 100 mg PO BID #180 tabs 07/17/22 [Rx Last Taken Unknown] Allergy/AdvReac Type Severity Reaction Status Date / Time [id number]-[id number] Reductase Allergy muscle pain Verified 08/20/22 15:13 Inhibitor methocarbamol [From Robaxin] AdvReac Severe Other Verified 08/20/22 15:13 procaine HCl [From Novocain] AdvReac Other Verified 08/20/22 15:13 Family History Mother Myocardial infarction CAD (coronary artery disease) HLD (hyperlipidemia) Brother CAD (coronary artery disease) Surgical History History of foot surgery History of liver biopsy (~06/2020) History of tonsillectomy Hx of colonoscopy (~07/2020) Hx of dilation and curettage Hx of rotator cuff surgery Hx of sinus surgery Presence of cardiac pacemaker Social History Smoking Status: Former smoker alcohol intake: never substance use type: does not use what type of physical activity do you participate in: none ROS Constitutional Constitutional: Denies anorexia, chills, fever(s) or night sweats Eyes Eyes: Denies blurry vision, change in vision or double vision ENT HEENT: Denies dysphagia, nasal congestion or sore throat Cardiovascular Cardiovascular: Denies chest pain, edema or palpitations Respiratory/Chest Respiratory/Chest: Denies cough, shortness of breath at rest or wheezing Gastrointestinal Gastrointestinal: Denies abdominal pain, constipation, diarrhea, nausea or vomiting Genitourinary Genitourinary: Denies dysuria, hematuria, urinary frequency or urinary hesitancy Musculoskeletal Musculoskeletal: Denies joint pain, joint stiffness or joint swelling Integumentary Integumentary: Denies lesions, pruritus or rash Neurologic Neurologic: Denies dizziness, numbness or seizures Endocrine Endocrinology: Denies cold intolerance or heat intolerance Hematologic/Lymphatic Hematologic/Lymphatic: Denies easy bleeding or easy bruising Vital Signs Vital Signs Vital Signs: 08/27/22 09:15 Temperature 96.6 F L Temperature Source Temporal Pulse Rate 80 Respiratory Rate 18 Blood Pressure 161/75 H Blood Pressure Mean 103 Blood Pressure Source Monitor Blood Pressure Position Semi-Fowlers Blood Pressure Location Left Arm Weight Weight: 68.492 kg Body Mass Index (BMI) 27.6 Physical Exam Const alert, oriented x3 and no apparent distress General Appearance: cooperative HEENT normocephalic Eyes General Eye: normal appearance of both eyes Neck General: normal visual inspection Lymph Lymphatic: no lymphadenopathy noted and no lymphedema noted Resp normal respiratory effort Cardio regular rate and regular rhythm Extremity no joint enlargement, no calf tenderness and no pedal edema Extremity Narrative: DP and PT pulses nonpalpable to right foot. Capillary fill time is delayed to the digits. Absent hair growth noted. There is rubor noted to the digits of the foot and forefoot secondary to severe arterial occlusive disease of the right lower extremity. Musculoskeletal: Muscle strength 5 of 5 and age-appropriate. HAV deformity noted with lateral deviation of the hallux with palpable medial eminence and stable eschar to medial eminence.? Hammertoe deformity of digit 2, 3, 4, 5 with crossover digit of 2 and 3 overlying the fourth digit. Fourth digit is noted to have a plantar ulceration with exposed flexor tendon.? Cicatrix noted overlying digits at first metatarsophalangeal joint of the left foot status post first MPJ fusion and hammertoe correction.? Digits are straight. Skin no rashes or lesions noted, skin turgor normal and no jaundice Wound Narrative: Right lateral heel ulceration with stable eschar, right medial eminence ulceration secondary to HAV deformity with stable eschar, subfourth digit ulceration with exposed flexor tendon secondary to significant hammertoe deformity. There is rubor of all the digits to the foot including the forefoot secondary to severe arterial occlusive disease. No purulent drainage, no malodor, no palpable fluctuance/bogginess, no lymphangitis. Neuro moves all extremities Debridement Note Debridement Note No debridement was completed: No debridement was completed today Post-Debridement Measurements and Additional Note: Post-Debridement Measurements/Treatment BHAVIN - Nurse 1 - General Ulcer Assessment Start: 08/27/22 09:15 Freq: Status: Active Protocol: JEFF Activity Type Activity Date Activity User E-sign Co-sign Detail Recorded Client Recorded Date Recorded By Document 08/27/22 09:15 EMILY Desktop 08/27/22 09:23 JF 08/27/22 09:15 WC - Today's Visit Information Type of service Initial Visit Arrival Mode Wheelchair Transfer Assistance Manual Accompanied by Patient Requires Transmission-Based No Precautions Height and Weight Body Mass Index (BMI) 27.6 BMI Classification Overweight Vital Signs Temperature (97.8 F-99.1 F) 96.6 F L Temperature Source Temporal Pulse Rate (60-100) 80 Pulse Location Monitor Respiratory Rate (12-18) 18 Respiratory rate source Observation Blood Pressure (90/60-120/80) 161/75 H Blood Pressure Mean 103 Source Monitor Position Semi-Fowlers Blood Pressure Location Left Arm Pain Scale: 0-10 Numeric Is Patient Pain Free? Yes Communication Assessment Preferred language [place] Recep Required No Able to Read Yes Able to Write Yes Communication Tools None Caregiver Communication Skills No Impairment Impairment Right Hearing Abillity Normal Left Hearing Abillity Normal Visual Assistive Devices Glasses Teaching Assessment Preferences Verbal,Written, Audio/Visual, Demonstration Barriers to Learning None Readiness To Learn Excellent Willingness to Engage in Self Management High Activies Readiness to Engage in Self Management High Activities Anxiety Level Calm Cooperation Cooperative Perception Coherent Interest in Health Problem Asks Questions Education Importance Acknowledges Need Does Patient Smoke tobacco or other No substances Smoking Status Former smoker Is Patient Diabetic No Functional Assessment Recent Decline in Ability to Perform Ambulation Culture/Congregational/Rental Representative Cultural/Congregational Needs that may affect No Treatment Plan Would you allow our hospital radiation technician to No meet you for the purpose of spiritual/ emotional support? Rental Representative to contact place of islam No Teaching: Wound Center *Welcome to the Wound Center -Person Taught Patient,Family -Teaching Method Discussion, Demonstration -Response to teaching Return demonstration, Verbalize understanding BHAVIN - Nurse 1 - General Ulcer Measurement Start: 08/27/22 09:15 Freq: Status: Active Protocol: Activity Type Activity Date Activity User E-sign Co-sign Detail Recorded Client Recorded Date Recorded By Document 08/27/22 09:15 EMILY Desktop 08/27/22 09:23 08/27/22 09:15 Wound Center Nurse 1 3-right 4th toe -Combined with other wound No -Current Size (cm) - Length 0.5 -Current Size (cm) - Width 1.3 -Current Size (cm) - Depth 0.4 -Total Square Cm 0.65 -Photo Taken Yes -Epithelialization None Present -Tunneling No -Undermining/Tunneling No -Circular Undermining No -Exudate Amt Small -Exudate Type Serosanguineous -Wound Margin Flat & Intact -Granulation Amt None Present (0 %) -Slough/Fibrin Yes -Necrosis Amt Large (67-100%) -Necrotic Tissue Type Adherent Slough -Structure Exposed Tendon -Texture (Shanique-wound Skin Appearance) Assessed -Moisture (Shanique-wound Skin Appearance) Assessed,Dry/ Scaly -Color (Shanique-wound Skin Appearance) Assessed -Temperature (Shanique-wound Skin No Abnormality Appearance) (Pt Warm) -Tenderness on Palpation (Shanique-wound No Skin Appearance) -Ulcer Cleansing Rinsed/ Irrigated with Saline -Foul Odor after Cleansing No -Anesthetic Used 5% Lidocaine Gel Lower Limb Edema Present NA WC - Nurse 3 - General Ulcer D/C NN Start: 08/27/22 09:15 Freq: Status: Active Protocol: Activity Type Activity Date Activity User E-sign Co-sign Detail Recorded Client Recorded Date Recorded By Document 08/27/22 10:07 Desktop 08/27/22 10:08 08/27/22 10:07 Wound Care Center Nurse 3 3-right 4th toe -Ulcer Cleansing Rinsed/ Irrigated with Saline -Foul Odor after Cleansing No -Other Dressing betadine -Primary Dressing Covered/Secured with Dry Gauze, Secured with Tape Pain Scale: 0-10 Numeric Is Patient Pain Free? Yes WC - Visit Discharge Discharge Condition Stable Ambulatory Status Wheelchair Transportation Private Auto Accompanied by spouse Medication Reconcilliation completed & Yes provided to patient/care provider Clinical Summary of Care Provided Yes Assessment/Plan Assessment/Plan (1) Atherosclerosis of lower extremity with ulceration: CODE(S): I70.25 - Atherosclerosis of deering arteries of other extremities with ulceration (2) Unstageable pressure ulcer of right foot: CODE(S): L89.890 - Pressure ulcer of other site, unstageable (3) Rheumatoid arthritis: CODE(S): M06.9 - Rheumatoid arthritis, unspecified (4) PAD (peripheral artery disease): CODE(S): I73.9 - Peripheral vascular disease, unspecified (5) Non-pressure chronic ulcer of other part of right foot with fat layer exposed: CODE(S): L97.512 - Non-pressure chronic ulcer of other part of right foot with fat layer exposed (6) Acquired hammer toe deformity of lesser toe of right foot: CODE(S): M20.41 - Other hammer toe(s) (acquired), right foot (7) Hallux valgus (acquired), right foot: CODE(S): M20.11 - Hallux valgus (acquired), right foot PLAN: Plan Patient seen and evaluated She demonstrates ulceration to the right lateral heel with stable eschar covering, right medial first metatarsal secondary to HAV deformity with stable eschar covering, and plantar fourth digit secondary to significant hammertoe deformity with exposed flexor tendon.? Ulcerative site right lateral heel measures 0.4 cm x 0.5 cm.? Right fourth digit measures 0.5 cm x 1.3 cm x 0.4 cm. Ulcerative sites demonstrate no localized signs of infection. She does have significant rubor of the forefoot involving all digits secondary to severe arterial occlusive disease. She did undergo revascularization of the left lower extremity with Dr. García in June 2022.? She returned on 08/20/2022 and underwent CTA with runoff demonstrating right iliac stenosis, high-grade, highly calcified, right common femoral total occlusion with diffuse moderate/severe SFA stenosis and left common iliac occlusion. She is noted to have severe arterial insufficiency in the right lower extremity. Dr. García plans right femoral endarterectomy with right iliac angioplasty with shockwave/stent to be performed on 09/16/2022. Patient refused debridement of her ulceration sites in June 2022. She was previously using Santyl to right lateral heel.? Today 08/27/2022 she continues to refuse debridement. I discussed with her severe arterial disease debridement should not be performed at this moment until she undergoes vascular intervention on 09/16/2022. At that point in time she states she wishes to see an orthopedic surgeon at [facility] to perform a fourth digit amputation and bunion and hammertoe correction of her right foot. Today fourth digit site was painted with Betadine and dressed with dry sterile dressing. She is to continue to change dressings daily. Recommended continued offloading and surgical shoe to the right foot I discussed with her that she has refused to have debridements over the last 2 visits in June 2022 as well as today 08/27/2022 and is essentially refusing further intervention by me, and thus I have recommended that she should return to Dr. Genao for continued foot care and follow-up with orthopedics at [facility] following her vascular intervention with Dr. García.? She is in agreement with this today. The following work up and care recommendations were made: Dressing: Violetteyl right lateral heel, Betadine fourth digit with dry sterile dressing Wash: Soap and water Tissue growth optimization: [place] Vascular: Will undergo right femoral endarterectomy and right iliac angioplasty with shockwave/stent on 09/16/[address] García Edema: No edema noted Infection: No signs of infection Pain: May take over the counter Tylenol extra strength for discomfort Host factors: PVD, advanced age, rheumatoid arthritis, HAV deformity and hammertoe deformity of the right foot ? I answered all the patient's questions.? She is being discharged today from the wound care center and will return to her network planner for continued foot care, vascular surgery, and orthopedics for surgical intervention.
== END 2022-09-16 23:59 | disposition home or self-care (01) ==
LOC: WC 08:58
PROVIDERS: PCP Internal Medicine; Referring Provider Student in an Organized Health Care Education/Training Program; Visit Provider Student in an Organized Health Care Education/Training Program
DX: I70.25 Atherosclerosis of native arteries of other extremities with ulceration (principal); L89.890 Pressure ulcer of other site, unstageable; L97.512 Non-pressure chronic ulcer of other part of right foot with fat layer exposed; L97.419 Non-pressure chronic ulcer of right heel and midfoot with unspecified severity; M06.9 Rheumatoid arthritis, unspecified; I48.0 Paroxysmal atrial fibrillation; E78.5 Hyperlipidemia, unspecified; M20.41 Other hammer toe(s) (acquired), right foot; M20.11 Hallux valgus (acquired), right foot; I12.9 Hypertensive chronic kidney disease with stage 1 through stage 4 chronic kidney disease, or unspecified chronic kidney disease; N18.9 Chronic kidney disease, unspecified; Z79.2 Long term (current) use of antibiotics; Z79.02 Long term (current) use of antithrombotics/antiplatelets; Z79.899 Other long term (current) drug therapy; Z87.891 Personal history of nicotine dependence; Z95.0 Presence of cardiac pacemaker
CPT/HCPCS: 99213; G0463

== ENCOUNTER 2022-09-16 05:32 | Inpatient (IN) | payer MEDICARE, SELFPAY ==
--- NOTE | 2022-09-03 14:22 | EKG12_ITS ---
Test Reason : PRE-OP Blood Pressure : / mmHG Vent. Rate : 061 BPM Atrial Rate : 061 BPM P-R Int : 276 ms QRS Dur : 116 ms QT Int : 466 ms P-R-T Axes : 095 -41 040 degrees QTc Int : 469 ms Atrial-paced rhythm with prolonged AV conduction Left axis deviation Incomplete left bundle branch block Nonspecific ST and T wave abnormality Abnormal ECG Confirmed by REN NUNEZ, RAFAEL ([id number]), associate entertainment editor SANIYA LEO ([id number]) on 09/04/2022 8:46:41 AM Referred By: Jamaal Garcia Confirmed By:RAFAEL MCCLURE MD
[2022-09-03 15:55] LABS: Hematocrit 40.8 % (37-47); Hemoglobin 13.6 g/dL (12.0-15.0); Mean Corp Hgb Conc 33.3 g/dL (32-36); Mean Corpuscular Hgb 29.1 pg (27.0-32.0); Mean Corpuscular Volume 87.2 fL (81-99); Mean Platelet Vol. 9.9 fl (6.2-12.0); Platelet Count 218 K/mm3 (150-450); RBC Distribution Width CV 13.5 % (11.6-14.6); RBC Distribution Width SD 42.7 fl (35.1-43.9); Red Blood Count 4.68 M/mm3 (4.2-5.4); White Blood Count 9.6 K/mm3 (4.4-11.0)
[2022-09-03 16:54] LABS: Anion Gap 7 (5-15); BUN 24 mg/dL (7-18); BUN/Creat Ratio 22.9 RATIO (10-20); Calcium,Total 10.8 mg/dL (8.5-10.1); Chloride 103 mmol/L (98-107); Creatinine, Serum 1.05 mg/dL (0.55-1.02); EST Glomerular Filtration Rate 54 mL/min (>60); Est Glom Filt Rate - Afr Amer 65 mL/min (>60); Glucose 185 mg/dL (74-106); Potassium 3.8 mmol/L (3.5-5.1); Sodium Level 136 mmol/L (136-145)
--- NOTE | 2022-09-15 | LYMN_PTH ---
PATIENT: MALI PATEL LOC: [facility] U#:[id number] AGE/SX: 81/F ROOM: [facility] RE09/16/[address]: Dr. Anibal García MD : [id number] BED: 1 DIS: 09/17/2022 SPEC #: [id number] RECD: 09/16/22 08:29 STATUS: MELODY REQ #: [id number] KINGS: 09/15/22 00:[address]: Anibal García DEPT: SURGICAL PATHOLOGY RECD BY: Chad Hardin ENTERED: 09/16/22 09:40 SP TYPE: LYMPH NODE OTHR DR: Dr. Diana Saravia MD Tissues: A - LYMPH NODE BIOPSY B - PLAQUE Procedures: Decalcification bone/plaque Special Stain Group II Surgery Specimen Level III Surgery Specimen Level IV Imprint (control) HEADER OPERATION: Femoral endarterectomy, iliac stent, endovascular lithotripsy PRE-OP DIAGNOSIS: Atherosclerosis of lower extremity with ulceration TISSUE SUBMITTED: A ? Right inguinal lymph node, B ? Right common femoral plaque MICROSCOPIC DIAGNOSIS A. Right inguinal lymph node, biopsy: A benign lymph node with reactive changes. See comment. B. Right common femoral plaque, endarterectomy: Atherosclerotic tissue with calcifications (plaque). TONY:lobo 09/21/2022 COMMENT A. The specimen is evaluated at the time of touch prints by Dr. Mcnamara. Immediate Evaluation = Polymorphous lymphocytes are noted. Flow cytometry study from [facility] shows no evidence of B-cell or T-cell lymphoma. The complete report is viewable in patient?s EMR. Clinical correlation and appropriate follow up are necessary. MICROSCOPIC DESCRIPTION Slides are reviewed. GROSS DESCRIPTION A - Received without fixative labeled with the patient's name is a specimen designated right inguinal lymph node. The specimen consists of a dumont ovoid nodule measuring 2.0 x 2.0 x 0.7 cm. The specimen is serially sectioned and reveal mostly adipose cut surfaces. A section is submitted for flow cytometry study. Two touch imprints are prepared. The entire specimen is submitted in two cassettes. / SJ:lobo 09/16/2022 B - Received in fixative is one container labeled with the patient's name and designated right common femoral plaque. The specimen consists of a previously opened pink-yellowish, indurated tubular piece of tissue measuring 6.0 cm in length and 0.7 cm in diameter. Also present in the container is an indurated piece of tissue measuring 1.5 x 0.4 x 0.2 cm. The specimen cuts with gritty sensation. Amalgamator sections are submitted in one cassette after decalcification. / TONY:lobo 09/16/2022 TC:5 CPT: 98758, 64178, 41102, 62495
[2022-09-16] VITALS (18 sets, daily range): BP systolic 123–149; BP diastolic 48–74; PULSE 60–68; RESP 12–19; TEMP 35.7–37; O2SAT 93–100; BMI 26.2; BMI 26.3
--- NOTE | 2022-09-16 06:30 | RAD_ITS ---
PROCEDURE: ANGIOGRAM - right lower extremity REASON FOR EXAM: Female, 81 years old. RT FEMORAL ENDARTERECTOMY, ILIAC STENT RADIATION DOSAGE (If Supplied By Facility): 102.63 mGy FLUOROSCOPY TIME (if supplied): (7 minutes and 5 seconds) minutes/seconds STERILE BARRIER TECHNIQUE: The following sterile barrier precautions were used during the procedure: hand hygiene; use of 2% chlorhexidine aseptic; use of a cap, mask, sterile gown, sterile gloves, sterile full body drape, and a large sterile sheet. TECHNIQUE: (All elements of maximal sterile barrier technique followed, including US elements as applicable) Intraoperative imaging provided for right femoral endarterectomy and iliac stent placement. RAD/Fluoroscopy 1 Hr or Less IMPRESSION: Intraoperative imaging provided for right femoral endarterectomy and iliac artery stent. Electronically Signed: Archie Caceres MD at 12:21 EDT ,
[2022-09-16] MEDS: Lactated Ringers 1,000 ML 15 ML IV (06:34)
[2022-09-16] MEDS: Heparin Injection (Vial) 5,000 UNIT/ML VIAL 5000 UNIT (07:30)
[2022-09-16] MEDS: Cefazolin 2 GM in 0.9% Normal Saline 100 ML IV (07:32)
[2022-09-16] MEDS: Heparin 10,000 UNITS/10 ML Vial 10000 UNITS (07:32)
--- NOTE | 2022-09-16 07:33 | PCM.HP.BLA ---
History and Physical Allergies Qglzzwn-LIO-QvS Reductase Inhibitor Allergy (Verified 08/20/22 15:13) muscle painmethocarbamol [From Robaxin] Adverse Reaction (Severe, Verified 08/20/22 15:13) Otherprocaine HCl [From Novocain] Adverse Reaction (Verified 08/20/22 15:13) Other Medications potassium chloride 20 mEq tablet,extended release(part/cryst) 20 meq PO BID 12/16/14 [History Confirmed 08/20/22] hydrochlorothiazide 12.5 mg capsule 12.5 mg PO QDAY 06/02/17 [History Confirmed 08/20/22] folic acid 1 mg tablet 5 mg PO DAILY 09/26/18 [History Confirmed 08/20/22] magnesium oxide 400 mg (241.3 mg magnesium) tablet 400 mg PO BID #180 tabs 07/11/19 [Rx Confirmed 08/20/22] evolocumab 140 mg/mL subcutaneous pen injector ([employer]ick) 140 mg subcut Q2W 01/01/20 [History Confirmed 08/20/22] krill oil 500 mg capsule 500 mg PO DAILY 10/30/20 [History Confirmed 08/20/22] cholecalciferol (vitamin D3) 25 mcg (1,000 unit) tablet 1,000 unit PO BID 05/09/21 [History Confirmed 08/20/22] losartan 100 mg tablet 100 mg PO DAILY #90 tabs 03/10/22 [Rx Confirmed 08/20/22] abatacept (with maltose) 250 mg intravenous solution See Rx Instructions .Route .COMPLEX 03/24/22 [History Confirmed 08/20/22] amlodipine 2.5 mg tablet 2.5 mg PO DAILY 03/24/22 [History Confirmed 08/20/22] metoprolol tartrate 25 mg tablet 75 mg PO BID 03/24/22 [History Confirmed 08/20/22] multivitamin (Daily Multi-Vitamin tablet) 1 tab PO DAILY 03/24/22 [History Confirmed 08/20/22] vitamin B complex 1 tab PO DAILY 03/24/22 [History Confirmed 08/20/22] biotin 800 mcg tablet 800 mcg PO DAILY 06/29/22 [History Confirmed 08/20/22] vitamin E mixed 400 unit capsule 400 unit PO DAILY 06/29/22 [History Confirmed 08/20/22] flecainide 100 mg tablet 100 mg PO BID #180 tabs 07/17/22 [Rx Confirmed 08/20/22] PFSH Medical History? Abnormal electrocardiogram CAD (coronary artery disease) CKD (chronic kidney disease) Essential hypertension HTN (hypertension) Hyperlipidemia Hypokalemia Mitral valve prolapse Near syncope Osteopenia PAC (premature atrial contraction) PAD (peripheral artery disease) Palpitations Paroxysmal atrial fibrillation Premature ventricular contractions PSVT (paroxysmal supraventricular tachycardia) Renal artery stenosis, chicken ranch, bilateral Rheumatic arteritis Sick sinus syndrome Stenosis of left carotid artery Surgical History? History of foot surgery History of liver biopsy (~06/2020) History of tonsillectomy Hx of colonoscopy (~07/2020) Hx of dilation and curettage Hx of rotator cuff surgery Hx of sinus surgery Presence of cardiac pacemaker Family History? Mother?? Myocardial infarction CAD (coronary artery disease) HLD (hyperlipidemia)Brother?? CAD (coronary artery disease) Social History? Smoking Status:? Former smoker alcohol intake:? never substance use type:? does not use what type of physical activity do you participate in:? none HPI HPI HPI: MALI PATEL, is a 81 F who presents to the office today for further discussion of RLE wounds, PAD. Initially had appeared to only have small wound on heel and medial aspect of metatarsal head. 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 Denies any increase in pain, no F/C. Has had a CTA and is here to discuss. ROS General General: Yes weight change; No appetite, fatigue, colon cancer, breast cancer or weakness HEENT HEENT: No difficulty swallowing, eye injury, eye surgery, swollen glands or hoarseness Endo Endocrine: No thyroid disease, diabetes mellitus, thyroid cancer, Hair loss, heat intolerance or cold intolerance Skin Skin: No rash or changing moles Musc Musculoskeletal: Yes rheumatoid arthritis and gout; No back problems, arthritis or joint pain Cardio Cardiovascular: Yes pacemaker, heart disease, atrial fibrillation and high blood pressure; No murmur, heart attack, heart stent, palpitations, shortness of breat with exertion or chest pain Psych Psychiatric: No depression, anxiety or hearing voices Resp Respiratory: No shortness of breath, No sleep apnea, No cough, No COPD, No asthma, No emphysema and No wheezing Gastro Gastrointestinal: No abdominal pain, No nausea or vomiting, No diarrhea, Yes constipation, No blood in stool, Yes acid reflux, Yes hemorrhoids, No ulcers, No gallbladder problem and No black,tarry stools Omar Hematologic: No blood thinners, No blood disorders, No bleeding, No anemia and No blood clots Neuro Neurologic: No system reviewed and no additional complaints, except as documented, No as per HPI, No abnormal gait, No abnormal hearing, No abnormal movements, No abnormal speech, No behavioral changes, No burning sensations, No confusion, No convulsions, No disequilibrium, No dizziness, No localized weakness, No frequent falls, No headache(s), No lack of coordination, No loss of vision, No memory loss, Yes numbness, No other visual disturbances, No radicular pain, No restless legs, No sensory deficit, No syncope, Yes tingling, No tremor(s), No weakness and No other Exam Const General: cooperative, healthy appearing, comfortable, no acute distress and well developed Nutritional Appearance: well nourished Orientation: alert, awake and oriented x3 [facility] Head: normocephalic and atraumatic Ears: hearing grossly normal bilaterally Nose: external nose normal Eyes General: appearance normal, both eyes and all related structures EOM: EOM intact bilaterally Neck Neck: normal visual inspection, full ROM and trachea midline Resp Effort & Inspection: normal respiratory effort, able to speak in complete sentences, symmetric chest movement, no audible wheezes, not labored, no stridor and no use of accessory muscles Cardio Rate: regular rate Rhythm: regular rhythm Skin General: no rashes or lesions noted and no erythema Wounds: wounds noted (small dry wounds heel, medial foot; plantar surface digit 4 exposed tendon) Neuro Cranial Nerves: CN's II-XI intact bilaterally and EOM intact bilaterally Speech: speech normal Gait: normal gait Motor: strength 5/5 throughout Sensory Exam: no sensory deficits noted Extremities Pulses: Absent: Right Dorsalis Pedis Pulse and Right Posterior Tibial Pulse Lower Extremity Edema: None: Bilateral Psych Appearance: grossly normal and well kempt Mental Status: mental status grossly normal Mood: congruent mood Speech and Movement: speech and movement normal Thought Content: normal Judgment: judgment good Coding Level of Care Code Off vis,est,level 3 Diagnoses Atherosclerosis of lower extremity with ulceration? I70.25 Assessment and Plan Assessment and Plan (1) Atherosclerosis of lower extremity with ulceration: ?Status:?Chronic ?Comment: CTA- images reviewed; high grade right iliac stenosis, highly calcified, right common femoral total occlusion, diffuse moderate/severe SFA stenosis, left common iliac occlusion ?Plan: -right femoral endarterectomy, iliac shockwave/stent
--- NOTE | 2022-09-16 12:16 | OP.PCM_ITS ---
Report of Operation Date of Procedure: 09/16/22 Pre-Operative Diagnosis: atherosclerosis with ulceration right lower extremity Post-Operative Diagnosis: same Surgery/Procedure Performed:: right femoral endarterectomy right common iliac artery intravascular lithotripsy angioplasty, stent right external iliac artery angioplasty, stent right sartorius flap Surgeon: Anibal García Type of Anesthesia: General Estimated Blood Loss (mL): 100 Description of Procedure: [place] VBX 8 x 29 Cook Z[place]ver PTX 8 x 6
--- NOTE | 2022-09-16 12:16 | PCM.OPRPT ---
Report of Operation Date of Procedure: 09/16/22 Pre-Operative Diagnosis: atherosclerosis with ulceration right lower extremity Post-Operative Diagnosis: same Surgery/Procedure Performed:: right femoral endarterectomy; modifier 22 applied given extensive endarterectomy down on to several centimeters of the SFA and profundofemoral artery adding an additional hour to the procedure time right common iliac artery intravascular lithotripsy angioplasty, stent right external iliac artery angioplasty, stent right sartorius flap Surgeon: Anibal García Type of Anesthesia: General Specimen's removed: 1) lymph node 2) femoral plaque Estimated Blood Loss (mL): 100 Description of Procedure: HPI: Patient is an 81-year-old female with atherosclerosis and progressive ulceration of the right lower extremity. 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 She also has moderate diffuse SFA popliteal disease. She presents now for femoral endarterectomy with planned angioplasty and stenting of the iliac lesions. Given the highly calcified nature of the common iliac shockwave intravascular lithotripsy angioplasty will be performed. She also has a history of frequent severe infections so a sartorius flap to cover the endarterectomized vessel will be performed. Description of procedure: Upon obtaining form consent and verification correct patient procedure site patient was taken to the operating where she was placed under general anesthesia. She was then positioned prepped and draped in usual sterile fashion a time was performed. Oblique incision was made over the common femoral artery and Bovie electrocautery used to dissect down through subcutaneous tissue then self-retaining retractors put in position. Further dissection was carried down to the femoral sheath which was then incised vertically exposing the femoral vessels. Dissection was then carried cephalad to the inguinal ligament which was freed along cephalad retraction. Self-retaining retractors moved deeper in the wound and sharp dissection was dissected free the common femoral artery proximally up onto the distal external iliac artery where the vessel was soft and clamped well. A right angle used to place Vesseloops around the distal external iliac artery as well as the medial and lateral branches individually. Next dissection carried distally down onto the common femoral and its bifurcation with dissection for approximately 3 cm onto the profunda before the vessel was soft and clamped and will be on the area of plaque. A right angle to placed Vesseloops this location and attention was turned to the SFA. Again the proximal SFA was highly diseased so dissection was carried down approximately 4 cm onto the SFA before the vessel was soft and clamped well. A right angle used to place a vessel at this location. The patient was then heparinized allowed to sit for 5 minutes. Serial ACT's were performed and heparin dosing performed based on results. Vessels were then clamped and a longitudinal arteriotomy was created with 11 blade extended Gandhi scissors down onto both the proximal superficial femoral artery and the main trunk of the profundofemoral artery. A freer elevator was then used to perform the endarterectomy with satisfactory endpoint distally onto the profunda as well as onto the superficial femoral artery. Approximately the endarterectomy was performed up onto the distal external iliac artery before plaque tapered. Was then flushed heparinized saline and the distal endpoints of the profunda and the SFA tacked with 7-0 Prolene interrupted sutures. The profunda arteriotomy was then closed with 7-0 Prolene in a running fashion up to the common femoral bifurcation. Next a bovine pericardial patch brought in field and secured in position using a 6-0 Prolene in a running fashion starting in the superficial femoral artery up to the external iliac artery. Prior to completing suture line the vessels were backbled and after completing suture line clamps removed and satisfactory stasis was noted. Next a micropuncture needle wire was then used to access the common femoral patch in retrograde fashion which was then exchanged out for micropuncture sheath. Through this hand-injection iliofemoral angiogram was performed which revealed satisfactory position within the true lumen and demonstrated the area of plaque as well as the aortic bifurcation. Bentson wire was then advanced via the micropuncture sheath and the micropuncture sheath exchanged out for a 7 Thai marker tip sheath. Next a Bentson wire and KMP catheter used to navigate across the area of dissection and the common iliac lesion ultimately advancing into the abdominal aorta. The wire was withdrawn and a injection aortogram was performed which confirmed position within the true lumen of the aorta. Next a 018 wire was advanced abdominal aorta and the KMP catheter withdrawn. A shockwave intravascular lithotripsy angioplasty balloon 8 mm x 3 cm was then advanced over the 018 wire however was unable to traverse the common iliac lesion. The balloon was then withdrawn and the lesion predilated with a 3 mm x 2 cm Cordis Saber balloon. This was then deflated and withdrawn and the shockwave balloon was able to be successfully advanced. This was then inflated to 2 maribeth in the lithotripsy activated for a total of 300 seconds of treatment. The balloon was then deflated withdrawn and the injection iliac angiogram confirmed satisfactory lesion response to the intervention with no extravasation or dissection aside from the chronic dissection. Next a [place] Viabahn VBX balloon expandable covered stent 8 mm x 29 mm was brought in the field and prep for crewman armoured personnel carrier m113 instructions. There is advanced over the wire and positioned centered on the lesion with satisfactory coverage proximal and distal. This was then inflated nominal and then deflated withdrawn. Again repeat angiography revealed satisfactory stent expansion with brisk contrast transit no extravasation and no new dissection. There is a second lesion in the external leg artery beyond the area of the chronic dissection that necessitated treatment so a Cook Zilver PTX 8 mm x 6 cm and brought to field prep for crewman armoured personnel carrier m113 instructions. This then advanced over the wire into position with satisfactory overlap onto normal lumen and then with deployed. This was then postdilated with a 6 x 40 angioplasty balloon after which completion iliac angiography confirmed satisfactory stent positioning with resolution of the lesion with no residual stenosis, no new dissection, no extravasation. The continue to be filling of the internal iliac artery from the chronic dissection false lumen. See no further lesions required intervention the sheath and wire were withdrawn and the femoral vessels reoccluded. A 5-0 Prolene U stitch was then used to repair the arteriotomy and after which the clamps removed and satisfactory stasis was noted. There is now robust pulse in the common femoral artery and satisfactory pulse as well as low resistant Doppler signals in the SFA and the profunda. Patient was then reversed with protamine and we turned our attention to the sartorius flap. Dissection was carried laterally over to the anterior superior iliac spine. The fascia overlying the sartorius was incised vertically and the muscle dissected free along its lateral edge up to the insertion into the ASIS. This was then taken down with Bovie and the muscle freed along its lateral and the deep surface allowing it to be transposed over the common femoral artery with no tension. The incision was then inspected for hemostasis and the vessel was again interrogated with Doppler. The sartorius was then secured in position with a 2-0 Vicryl followed by 3-0 Vicryl and 4 Monocryl and Dermabond for the skin. Prevena close incision wound VAC was then applied after which the patient was awakened anesthesia taken recovery room with anticipated admission to the intensive care unit for hemodynamic and vascular monitoring. Modifier 22 applied to the common femoral endarterectomy portion of the procedure given the extensive endarterectomy down onto significant portions of the SFA and the profunda and very lengthy patch contributing 1 hour to additional procedure time. Grafts/Implants Used: [place] VBX 8 x 29 Cook Zilver PTX 8 x 6
[2022-09-16] MEDS: Clopidogrel Bisulfate 300 MG Tablet PO (13:06)
[2022-09-16 13:30] LABS: ACT Activated Clotting Time 119 sec (74-137)
[2022-09-16 13:31] LABS: ACT Activated Clotting Time 275 sec (74-137)
[2022-09-16 13:32] LABS: ACT Activated Clotting Time 233 sec (74-137)
[2022-09-16 13:33] LABS: ACT Activated Clotting Time 209 sec (74-137)
[2022-09-16 13:37] LABS: ACT Activated Clotting Time 257 sec (74-137)
[2022-09-16 13:38] LABS: ACT Activated Clotting Time 209 sec (74-137)
[2022-09-16] MEDS: 0.45% Normal Saline 1,000 ML 75 ML IV (13:55)
[2022-09-16] MEDS: Acetaminophen 500 MG Tablet 1000 MG PO ×2 (14:52→21:49)
[2022-09-16] MEDS: Cefazolin 1 GM/50 ML BAG IV ×2 (14:52→21:50)
[2022-09-16] MEDS: Potassium Chloride Oral Tablet 20 MEQ PO (17:50)
[2022-09-16] MEDS: oxyCODONE 5 MG Tablet PO (20:04)
[2022-09-16] MEDS: Metoprolol Tartrate 25 MG Tablet 75 MG PO (21:48)
[2022-09-16] MEDS: Flecainide 100 MG Tablet PO (21:48)
[2022-09-16] MEDS: Magnesium Chloride 64 MG Delay Rel.Tablet 128 MG PO (21:49)
[2022-09-16] MEDS: Cholecalciferol (VIT D3) 25 MCG TABLET (1,000 UNITS) PO (21:50)
[2022-09-17] VITALS (19 sets, daily range): BP systolic 93–157; BP diastolic 46–82; PULSE 60–128; RESP 12–21; TEMP 35.8–36.7; O2SAT 90–100; BMI 27.1
[2022-09-17] MEDS: HYDROmorphone 0.5 MG/0.5 ML SYRINGE IV (02:36)
[2022-09-17] MEDS: 0.45% Normal Saline 1,000 ML 75 ML IV (04:24)
[2022-09-17] MEDS: Acetaminophen 500 MG Tablet 1000 MG PO ×2 (05:05→14:54)
[2022-09-17] MEDS: Cefazolin 1 GM/50 ML BAG IV ×2 (05:06→14:54)
[2022-09-17 05:56] LABS: Anion Gap 7 (5-15); BUN 20 mg/dL (7-18); BUN/Creat Ratio 21.3 RATIO (10-20); Calcium,Total 8.9 mg/dL (8.5-10.1); Chloride 106 mmol/L (98-107); Creatinine, Serum 0.94 mg/dL (0.55-1.02); EST Glomerular Filtration Rate 61 mL/min (>60); Est Glom Filt Rate - Afr Amer 73 mL/min (>60); Estimated Creatinine Clearance 36.02 ml/min; Glucose 118 mg/dL (74-106); Potassium 4.3 mmol/L (3.5-5.1); Sodium Level 140 mmol/L (136-145)
[2022-09-17] MEDS: Folic Acid 1 MG Tablet 5 MG PO (08:24)
[2022-09-17] MEDS: Vitamin B Comp W-C Capsule 1 CAP PO (08:25)
[2022-09-17] MEDS: Multivitamins,Therapeutic Tablet 1 TABLET PO (08:25)
[2022-09-17] MEDS: Vitamin E 400 UNITS Capsule PO (08:25)
[2022-09-17] MEDS: Magnesium Chloride 64 MG Delay Rel.Tablet 128 MG PO (08:25)
[2022-09-17] MEDS: Metoprolol Tartrate 25 MG Tablet 75 MG PO (08:25)
[2022-09-17] MEDS: amLODIPine 2.5 MG Tablet PO (08:25)
[2022-09-17] MEDS: Clopidogrel Bisulfate 75 MG Tablet PO (08:26)
[2022-09-17] MEDS: Flecainide 100 MG Tablet PO (08:26)
[2022-09-17] MEDS: Cholecalciferol (VIT D3) 25 MCG TABLET (1,000 UNITS) PO (08:26)
[2022-09-17] MEDS: Potassium Chloride Oral Tablet 20 MEQ PO (08:26)
--- NOTE | 2022-09-17 09:40 | CASEMGMT ---
Addendum entered by Raymond Cesar 09/17/22 16:16: Nurse at [facility] was made aware pt has wound to RLE but that she does her own wound care/dsg changes daily and wants to continue to do them and states does not want anyone touching it. Addendum entered by Raymond Cesar 09/17/22 16:14: [facility] able to accept pt. Discharge summary sent to them via [facility]. Discharge instructions to be sent once available. RN CM to room. Pt and made aware. Addendum entered by Raymond Cesar 09/17/22 15:33: Therapy has worked w/pt. RN CM to room. Pt is now agreeable to [facility]. A list of [facility] providers including quality and resource use data and consistent with the patient?s preferred geographic region, medical needs, and insurance network were provided from the [facility] Guide. Pt denies having any preference at all. Cy @ [facility], states they are able to accept pt. He is aware pt is discharging home today. Original Note: RN?CM?SUPERVISOR LUMP ROOM?CM?to room to meet with patient for initial transition planning/care coordination?assessment.?RN?CM?introduced self and role at [facility].? Pt voices understanding and consents to?assessment?at this time.? Pt resting in bed in no distress at this time.? @ bedside. Pt is A/O at this time and answers all questions appropriately.?? Care providers, pharmacy, and demographics verified/updated at this time. PCP: Dr Saravia Specialists: Dr García-vascular, [facility]/cardiology, Dr Alves-clinical nursing assistant in [place], Dr Moses Cesar-pulmonology, Dr Ribeiro-GI, Dr Cobb-derm Pt states has seen Dr Green and Dr Garcia for foot wound. She states Dr García is planning on having her go to the [facility] and Dr Saravia to do referral to [facility] for possible amputation. Wound/Wound Care: Currently pt is doing daily wound care/dressing changes to foot wound. She declines wanting [facility]/nurse for wound care . She states she has been doing the dressing herself for so long that she does not want anyone else doing it. She states she currently has all the dressing supplies needed at this time and will f/u with for further/on-going treatment. Preferred Pharmacy: [facility] Retail Insurance: [employer] [facility] Prescription Benefit:?Yes Living Will/HPOA:? Has both LW and HCPOA, who is her , Ren ORTEGAOK: , Ren Living Arrangements: Lives w/her in one-story home w/a basement and 2-3 steps to enter. She states does not have to go to the basement. She is indep w/ADL's and manages her own medications and appts. Pt and share home mgnt tasks. Pt states she has had several falls over the past couple of years. She currently is W/C bound d/t NWB status to [facility] and has not had any falls over the past couple of months since using W/C for transfers. Transportation:? DME: ?States has the following DME: seat in shower, BSC, W/C, CR2 Watch/medical alert system. Pt has crutches and a walker available, but does not use. Pt states no need for further DME at this time.? HHC/SNF: No hx of SNF. She has had HHC in the past and has went to [facility] in the past for OP therapy. Pt declines wanting HHC for nurse/wound care or for therapy and declines wanting to do OP therapy at this time. She states she may want HHC or OP ther in the future, but wants to wait to see what the next treatment plan is re: Rt foot wound. Pt wishes to return home and states has no concerns with going home at time of discharge.? CM?to follow for any discharge planning/needs.? Pt voices no further concerns/needs at this time.? Advised pt to ask for?CM?if any further questions/concerns/needs arise.? Voices understanding. PLAN:??Home w/spousal support and discharge plans in place. PT/OT evals pending. Meenakshi BSN?RN?CM
--- NOTE | 2022-09-17 10:00 | EKG12_ITS ---
Test Reason : AM EKG Blood Pressure : / mmHG Vent. Rate : 061 BPM Atrial Rate : 061 BPM P-R Int : 320 ms QRS Dur : 112 ms QT Int : 442 ms P-R-T Axes : 000 -01 -04 degrees QTc Int : 444 ms Atrial-paced rhythm with prolonged AV conduction Incomplete left bundle branch block Abnormal ECG When compared with ECG of 03-SEP-2022 14:27, Nonspecific T wave abnormality no longer evident in Anterior leads Confirmed by REN NUNEZ, RAFAEL ([id number]), publication editor SANIYA LEO ([id number]) on 09/22/2022 9:04:59 AM Referred By: CHARLEY Confirmed By:RAFAEL MCCLURE MD
--- NOTE | 2022-09-17 12:59 | PN.SURG_ITS ---
Subjective Subjective Doing well, pain controlled, some foot pain remains. No N/V/CP/SOB Objective Data Objective Data A&O x 3, NAD RRR resp non labored +DP biphasic, PT monophasic Vital Signs: Vital Signs Temp Pulse Resp BP Pulse Ox O2 Del Method O2 Flow Rate 96.8 F L 64 18 130/53 H 99 Room Air 2 09/17/22 12:00 09/17/22 12:00 09/17/22 12:00 09/17/22 12:00 09/17/22 12:00 09/17/22 12:00 09/16/22 13:30 Oxygen Flow Rate (L/min) 2 Oxygen Delivery Method Room Air Weight: 147 lb 11.355 oz Body Mass Index (BMI) 27.1 Intake & Output: Intake and Output for Last 24 Hours 09/15/22 09/16/22 09/17/22 23:59 23:59 23:59 Intake Total 1585.25 / 1585.25 1770 / 1770 Output Total 1000 / 1000 650 / 650 Balance 585.25 / 585.25 1120 / 1120 Lab / Micro Data Result Diagrams: 09/03/22 14:12 09/17/22 05:25 Labs: Laboratory Results - last 24 hr 09/16/22 08:20: Activated Clotting Time 119 09/16/22 09:00: Activated Clotting Time 275 H 09/16/22 09:51: Activated Clotting Time 233 H 09/16/22 10:23: Activated Clotting Time 209 H 09/16/22 11:01: Activated Clotting Time 257 H 09/16/22 11:41: Activated Clotting Time 209 H 09/17/22 05:25: WBC Cancelled, Corrected WBC Cancelled, RBC Cancelled, Hgb Cancelled, Hct Cancelled, MCV Cancelled, MCH Cancelled, MCHC Cancelled, RDW Std Deviation Cancelled, RDW Coeff of Gilberto Cancelled, Plt Count Cancelled, MPV Cancelled, Immature Gran % (Auto) Cancelled, Neut % (Auto) Cancelled, Lymph % (Auto) Cancelled, [place] % (Auto) Cancelled, Eos % (Auto) Cancelled, Baso % (Auto) Cancelled, Absolute Neuts (auto) Cancelled, Absolute Lymphs (auto) Cancelled, Total Counted Cancelled, Neutrophils % (Manual) Cancelled, Band Neutrophils % Cancelled, Lymphocytes % (Manual) Cancelled, Monocytes % (Manual) Cancelled, Eosinophils % (Manual) Cancelled, Basophils % (Manual) Cancelled, Metamyelocytes % Cancelled, Myelocytes % Cancelled, Promyelocytes % Cancelled, Blast Cells % Cancelled, Plasma Cell % (Manual) Cancelled, Other Cells % Cancelled, Nucleated RBC % Cancelled, Nucleated RBCs/100 WBC Cancelled, Differential Comment Cancelled, Diff Path Review Cancelled, Hypersegmented Neuts Cancelled, Atypical Lymphocytes Cancelled, Reactive Lymphocytes Cancelled, Smudge Cells Cancelled, Toxic Granulation Cancelled, Toxic Vacuolation Cancelled, Dohle Bodies Cancelled, Diego Rods Cancelled, Platelet Estimate Cancelled, Plt Morphology Comment Cancelled, RBC Morphology Cancelled, Polychromasia Cancelled, Hypochromasia Cancelled, Poikilocytosis Cancelled, Basophilic Stippling Cancelled, Anisocytosis Cancelled, Microcytosis Cancelled, Macrocytosis Cancelled, Spherocytes Cancelled, Sickle Cells Cancelled, Target Cells Can celled, Tear Drop Cells Cancelled, Ovalocytes Cancelled, Stomatocytes Cancelled, [place] Bodies Cancelled, Padmini Cells Cancelled, Bite Cells Cancelled, Crenated Cell Cancelled, Acanthocytes (Spur) Cancelled, Rouleaux Cancelled, Schistocytes Cancelled 09/17/22 05:25: Sodium 140, Potassium 4.3, Chloride 106, Carbon Dioxide 27.0, Anion Gap 7, BUN 20 H, Creatinine 0.94, Estim Creat Clear Calc 36.02, Est GFR (MDRD) Af Amer 73, Est GFR (MDRD) Non-Af 61, BUN/Creatinine Ratio 21.3 H, Glucose 118 H, Calcium 8.9 Assessment & Plan Assessment/Plan (1) Atherosclerosis of lower extremity with ulceration: PLAN: -POD # 1 right femoral endart, iliac stents, sartorius flap -hgb stable, tiana PO, pain controlled -has been up to chair, able to do baseline home activities -dc with asa, plavix, oxycodonee
--- NOTE | 2022-09-17 13:02 | DS.PCM_ITS ---
Providers Date of Admission: 09/16/22 Primary Care Physician: Dr. 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 Code(s): I70.25 - Atherosclerosis of [place] arteries of other extremities with ulceration Plan: -POD # 1 right femoral endart, iliac stents, sartorius flap -hgb stable, tiana PO, pain controlled -has been up to chair, able to do baseline home activities -dc with asa, plavix, oxycodonee Medications at Discharge Home Medications potassium chloride 20 mEq tablet,extended release(part/cryst) 20 meq PO BID Check with primary doctor 12/16/14 folic acid 1 mg tablet 5 mg PO DAILY Check with primary doctor 09/26/18 krill oil 500 mg capsule 300 mg PO DAILY Check with primary doctor 10/30/20 cholecalciferol (vitamin D3) 25 mcg (1,000 unit) tablet 1,000 unit PO BID Check with primary doctor 05/09/21 metoprolol tartrate 25 mg tablet 75 mg PO BID Check with primary doctor 03/24/22 multivitamin (Daily Multi-Vitamin tablet) 1 tab PO DAILY Check with primary doctor 03/24/22 vitamin B complex 1 tab PO DAILY Check with primary doctor 03/24/22 vitamin E mixed 400 unit capsule 400 unit PO DAILY Check with primary doctor 06/29/22 flecainide 100 mg tablet 100 mg PO BID Check with primary doctor 09/02/22 magnesium oxide 400 mg (241.3 mg magnesium) tablet 400 mg PO BID Check with primary doctor 09/02/22 amlodipine 2.5 mg tablet 2.5 mg PO DAILY Check with primary doctor 09/16/22 clopidogrel 75 mg tablet (Plavix) 75 mg PO DAILY #90 tabs 09/17/22 oxycodone 5 mg tablet 5 mg PO Q8H PRN Pain Score 4-10 5 days #15 tabs 09/17/22 Hospital Course Operations - (right femoral endarterectomy, right common/external iliac stents, right sartorius flap) Summary of Care Provided Hospital Course: The patient was admitted 09/16/22 after elective right femoral endarterectomy, right common/external iliac stents, right sartorius flap which she tolerated well. Post op she was hemodynamically stable, pain controlled and with improved RLE vascular exam. On POD # 1 she continued to do well with stable RLE doppler signals, ambulating/transferring, voiding, tolerating diet. She was then prepared for discharge on 09/17/22 Physical Exam Const alert, oriented x3, no apparent distress and healthy appearing General Appearance: cooperative; Negative for combative or lethargic Orientation / Consciousness: awake Exam Limitations: no limitations HEENT Head and Scalp: normocephalic and atraumatic Eyes EOMs intact bilaterally General Eye: normal appearance of both eyes Neck full ROM General: trachea midline Resp normal respiratory effort and no use of accessory muscles Effort and Inspection: Negative for labored, stridor or audible wheezes Cardio regular rate and regular rhythm Back/Spine Cervical Spine: cervical ROM normal Extremity full ROM, normal capillary refill and no clubbing, cyanosis or edema Skin no rashes or lesions noted Neuro oriented x3, CN's II-XII intact bilaterally, no focal motor deficits and no sensory deficits noted Psych thought process normal, cooperative, affect normal, speech normal and activity/motor behavior normal Weight / BMI Weight Weight: 147 lb 11.355 oz Body Mass Index (BMI) 27.1 ABG / Lab / Microbiology Data Result Diagrams: 09/03/22 14:12 09/17/22 05:25 Laboratory: Laboratory Results - last 24 hr 09/16/22 08:20: Activated Clotting Time 119 09/16/22 09:00: Activated Clotting Time 275 H 09/16/22 09:51: Activated Clotting Time 233 H 09/16/22 10:23: Activated Clotting Time 209 H 09/16/22 11:01: Activated Clotting Time 257 H 09/16/22 11:41: Activated Clotting Time 209 H 09/17/22 05:25: WBC Cancelled, Corrected WBC Cancelled, RBC Cancelled, Hgb Cancelled, Hct Cancelled, MCV Cancelled, MCH Cancelled, MCHC Cancelled, RDW Std Deviation Cancelled, RDW Coeff of Gilberto Cancelled, Plt Count Cancelled, MPV Cancelled, Immature Gran % (Auto) Cancelled, Neut % (Auto) Cancelled, Lymph % (Auto) Cancelled, [place] % (Auto) Cancelled, Eos % (Auto) Cancelled, Baso % (Auto) Cancelled, Absolute Neuts (auto) Cancelled, Absolute Lymphs (auto) Cancelled, Total Counted Cancelled, Neutrophils % (Manual) Cancelled, Band Neutrophils % C ancelled, Lymphocytes % (Manual) Cancelled, Monocytes % (Manual) Cancelled, Eosinophils % (Manual) Cancelled, Basophils % (Manual) Cancelled, Metamyelocytes % Cancelled, Myelocytes % Cancelled, Promyelocytes % Cancelled, Blast Cells % Cancelled, Plasma Cell % (Manual) Cancelled, Other Cells % Cancelled, Nucleated RBC % Cancelled, Nucleated RBCs/100 WBC Cancelled, Differential Comment Cancelled, Diff Path Review Cancelled, Hypersegmented Neuts Cancelled, Atypical Lymphocytes Cancelled, Reactive Lymphocytes Cancelled, Smudge Cells Cancelled, Toxic Granulation Cancelled, Toxic Vacuolation Cancelled, Dohle Bodies Cancelled, Diego Rods Cancelled, Platelet Estimate Cancelled, Plt Morphology Comment Cancelled, RBC Morphology Cancelled, Polychromasia Cancelled, Hypochromasia Cancelled, Poikilocytosis Cancelled, Basophilic Stippling Cancelled, Anisocytosis Cancelled, Microcytosis Cancelled, Macrocytosis Cancelled, Spherocytes Cancelled, Sickle Cells Cancelled, Target Cells Cancelled, Tear Drop Cells Cancelled, Ovalocytes Cancelled, Stomatocytes Cancelled, [place] Bodies Cancelled, [place] Cells Cancelled, Bite Cells Cancelled, Crenated Cell Cancelled, Acanthocytes (Spur) Cancelled, Rouleaux Cancelled, Schistocytes Cancelled 09/17/22 05:25: Sodium 140, Potassium 4.3, Chloride 106, Carbon Dioxide 27.0, Anion Gap 7, BUN 20 H, Creatinine 0.94, Estim Creat Clear Calc 36.02, Est GFR (MDRD) Af Amer 73, Est GFR (MDRD) Non-Af 61, BUN/Creatinine Ratio 21.3 H, Glucose 118 H, Calcium 8.9 D/C Instructions Discharge Diet: No restrictions May shower in (days): 1 Lifting Restrictions: do not lift > 20 lbs for 3 weeks Additional Activity Instructions: do not submerge incision for 3 weeks Call your doctor if your incision/area has: Sudden Increased Bleeding, Increased Pain/ Swelling, Increased Redness and Foul Smelling Discharge Call your doctor if you observe: Fever of 101 or Higher Remove Dressing in: 6 days Cleanse incision/area with: Soap & Water Meaningful Use Info Meaningful Use Diagnoses (Choose all that apply): None applicable Discharge Plan Admission Admit Date/Time: 09/16/22 05:32 Attending Provider: Anibal García Primary Care Provider: Diana Saravia Discharge Orders/Prescriptions Prescriptions: New clopidogrel [Plavix] 75 mg tablet 75 mg PO DAILY Qty: 90 1RF oxycodone 5 mg Tablet 5 mg PO Q8H PRN (Reason: Pain Score 4-10) 5 Days Qty: 15 0RF Continued folic acid 1 mg tablet 5 mg PO DAILY krill oil 500 mg capsule 300 mg PO DAILY metoprolol tartrate 25 mg tablet 75 mg PO BID vitamin E mixed 400 unit capsule 400 unit PO DAILY multivitamin [Daily Multi-Vitamin] Tablet 1 tab PO DAILY vitamin B complex Tablet 1 tab PO DAILY potassium chloride 20 MEQ tablet 20 meq PO BID cholecalciferol (vitamin D3) 25 mcg (1,000 unit) tablet 1,000 unit PO BID magnesium oxide 400 mg (241.3 mg magnesium) tablet 400 mg PO BID flecainide 100 mg tablet 100 mg PO BID amlodipine 2.5 mg tablet 2.5 mg PO DAILY Label Comments: TAKE 1 TABLET BY MOUTH TWICE DAILY Other Ambulatory Orders: 12 Lead EKG (Routine) Timeframe: [id number] Location: None Selected Ordered By: Dr. David Fernandez Referrals / Follow Up: Diana Saravia MD [Primary Care Provider] - Disposition Disposition (needs filled in before D/C Order can be placed): Home, Self Care
--- NOTE | 2022-09-17 15:23 | CM.UR ---
Discharge Planning HH referral sent to [facility] via [facility]. Maria Guadalupe Parker
== END 2022-09-17 17:00 | disposition home health service (06) | DRG 252 ==
LOC: ACINP 05:33 → ICU 11:40
PROVIDERS: Admitting Provider Surgery Trauma Surgery; PCP Internal Medicine; Visit Provider Surgery Trauma Surgery
PROC: 047H34Z Dilation of Right External Iliac Artery with Drug-eluting Intraluminal Device, Percutaneous Approach (ICD-10-PCS; principal; 2022-09-16 07:10)
DX: I70.25 Atherosclerosis of native arteries of other extremities with ulceration (principal); I77.77 Dissection of artery of lower extremity; I70.92 Chronic total occlusion of artery of the extremities; L98.499 Non-pressure chronic ulcer of skin of other sites with unspecified severity; Z87.891 Personal history of nicotine dependence
CPT/HCPCS: 36415; 76000; 80048; 85027; 85347; 86850; 86900; 86901; 86920; 86921; 86922; 88304; 88305; 88311; 88313; 93005; 94668; 94762; 97162; 97166; 97802; 99252; A4648; C1769; C1874; C1894; J7040; J7120; C1725; G0463; J2405

== ENCOUNTER 2022-09-20 20:57 | Emergency (ER) | payer MEDICARE, SELFPAY ==
[2022-09-20 20:57] VITALS: BP 174/79; PULSE 69; RESP 16; TEMP 36.2; O2SAT 99; BMI 28.2
--- NOTE | 2022-09-20 22:24 | ED.VIS.LOWEX ---
HPI History of Present Illness Chief Complaint: Lower Extremity Injury Detail of Chief Complaint: Swollen red warm right lower extremity Occured/Mechanism Comment: Recent endarterectomy by Dr. Anibal García, September 16 Onset/Context/Timing Onset: Today Timing: Continuous Quality of Pain: - (Patient denies pain) Location: The entire right lower extremity more prominent right thigh Current Severity: Moderate Maximum Severity: Moderate Worsened by: Nothing Relieved by: Nothing Associated Symptoms Associated Symptoms: Negative for Parasthesia, Weakness or Loss of Funtion Narrative Narrative: Patient is an 81-year-old woman with history of peripheral arterial disease who had a recent endarterectomy performed by Dr. Anibal García of the superficial femoral artery. Patient was discharged on Plavix. Patient does have history of hyper lipidemia, paroxysmal atrial fibrillation, essential hypertension, and rheumatoid arthritis. She has not been on any biologic since April. Patient had endarterectomy performed because of nonhealing foot ulcer. Last dose of oxycodone with acetaminophen was 1600. She presently has no pain. She denies paresthesia, anesthesia or motor weakness. She denies respiratory, cardiac or GI symptoms. Prior similar symptoms: No Recent Illness/Hospitalization: Yes [facility] Medical History Abnormal electrocardiogram CAD (coronary artery disease) Cardiology follow-up encounter CKD (chronic kidney disease) Essential hypertension Fatty liver Former smoker High cholesterol History of diverticulitis History of echocardiogram History of stress test HTN (hypertension) Hyperlipidemia Hypokalemia Mitral valve prolapse Near syncope Open wound Osteopenia PAC (premature atrial contraction) PAD (peripheral artery disease) Palpitations Paroxysmal atrial fibrillation Premature ventricular contractions Pressure ulcer PSVT (paroxysmal supraventricular tachycardia) Renal artery stenosis, [place], bilateral Rheumatic arteritis Sick sinus syndrome Stenosis of left carotid artery Wears hearing aid Home Medications potassium chloride 20 mEq tablet,extended release(part/cryst) 20 meq PO BID Check with primary doctor 12/16/14 [History Last Taken Unknown] folic acid 1 mg tablet 5 mg PO DAILY Check with primary doctor 09/26/18 [History Last Taken Unknown] krill oil 500 mg capsule 300 mg PO DAILY Check with primary doctor 10/30/20 [History Last Taken Unknown] cholecalciferol (vitamin D3) 25 mcg (1,000 unit) tablet 1,000 unit PO BID Check with primary doctor 05/09/21 [History Last Taken Unknown] metoprolol tartrate 25 mg tablet 75 mg PO BID Check with primary doctor 03/24/22 [History Last Taken 09/16/22] multivitamin (Daily Multi-Vitamin tablet) 1 tab PO DAILY Check with primary doctor 03/24/22 [History Last Taken Unknown] vitamin B complex 1 tab PO DAILY Check with primary doctor 03/24/22 [History Last Taken Unknown] vitamin E mixed 400 unit capsule 400 unit PO DAILY Check with primary doctor 06/29/22 [History Last Taken Unknown] flecainide 100 mg tablet 100 mg PO BID Check with primary doctor 09/02/22 [History Last Taken 09/16/22] magnesium oxide 400 mg (241.3 mg magnesium) tablet 400 mg PO BID Check with primary doctor 09/02/22 [History Last Taken Unknown] amlodipine 2.5 mg tablet 2.5 mg PO DAILY Check with primary doctor 09/16/22 [History Last Taken 09/16/22] clopidogrel 75 mg tablet (Plavix) 75 mg PO DAILY #90 tabs 09/17/22 [Rx Last Taken Unknown] oxycodone 5 mg tablet 5 mg PO Q8H PRN Pain Score 4-10 5 days #15 tabs 09/17/22 [Rx Last Taken Unknown] Allergy/AdvReac Type Severity Reaction Status Date / Time [id number] Reductase Allergy muscle pain Verified 09/20/22 20:59 Inhibitor methocarbamol [From Robaxin] AdvReac Severe Other Verified 09/20/22 20:59 procaine HCl [From Novocain] AdvReac Other Verified 09/20/22 20:59 Family History Mother Myocardial infarction CAD (coronary artery disease) HLD (hyperlipidemia) Brother CAD (coronary artery disease) Surgical History History of endarterectomy History of foot surgery History of liver biopsy (~06/2020) History of tonsillectomy Hx of colonoscopy (~07/2020) Hx of dilation and curettage Hx of rotator cuff surgery Hx of sinus surgery Presence of cardiac pacemaker S/P insertion of iliac artery stent Social History Smoking Status: Former smoker alcohol intake: never substance use type: does not use what type of physical activity do you participate in: none ROS ROS ED Constitutional Constitutional ED: Denies chills, fever(s), subjective, sweats or weight loss Eyes Eyes: Denies blurry vision or change in vision ENT ENT ED: Denies ear pain, rhinorrhea or sore throat Cardiovascular Cardiovascular: Denies chest pain or palpitations Respiratory/Chest Respiratory/Chest: Denies cough, dyspnea or dyspnea on exertion Gastrointestinal Gastrointestinal: Denies abdominal pain, nausea or vomiting Musculoskeletal Musculoskeletal: Denies arthralgias, back pain, myalgias or neck pain Integumentary Reports rash Neurologic Neurologic: Denies headache(s), paresthesias or weakness Endocrine Endocrinology: Denies polydipsia or polyuria Hematologic/Lymphatic Hematologic/Lymphatic: Denies easy bleeding or easy bruising EXAM Physical Exam Const Vital Signs: 09/20/22 20:57 Temperature 97.2 F L Temperature Source Temporal Pulse Rate 69 Respiratory Rate 16 Blood Pressure 174/79 H Blood Pressure Mean 110 Pulse Ox 99 Positive well nourished and well developed General Appearance ED: well developed and NAD HEENT Reports moist mucous membranes normocephalic and atraumatic Eyes PERRL Eyes Narrative: Extraocular muscles are intact. Sclera is anicteric. Ears are normal. Nares are patent. Neck full ROM and supple Resp normal respiratory effort, no retractions and clear to auscultation bilaterally Cardio regular rate, regular rhythm, S1 normal heart sound, S2 normal heart sound and no murmurs GI non-tender, non-distended and no masses Extremity Negative for normal to inspection Extremity Narrative: The right lower extremity is swollen. There is erythema and warmth to the thigh and more prominent proximal medial right thigh. The calf. There is no tenderness along the distribution deep venous system. There is no leg vein distention. There is no inguinal lymphadenopathy. There is no thrill or bruit noted over the incision site. Femoral pulses 1+. General Extremety ED: Yes edema; Negative for cyanosis General Extremity: edema; Negative for cyanosis Neuro oriented x3, CN's II-XII intact bilaterally and moves all extremities Psych mental status grossly normal Skin Skin Narrative: Slight erythema and warmth predominately of the right thigh MDM MDM MDM Narrative Medical decision making narrative: There is no evidence of arterial insufficiency or occlusion. Differential diagnosis would be DVT versus cellulitis. Will obtain blood work and after results are available for review we will contact Dr. Anibal García to discuss case. Spoke with Dr. Anibal García. Agrees with plan of Eliquis and venous duplex study in the morning. History & Record Review Additional record(s) reviewed:: Prior outpatient record and Prior labs Lab Data Labs: Laboratory Results - last 24 hr 09/20/22 09/20/22 22:30 22:30 WBC 9.6 RBC 4.01 L Hgb 11.7 L Hct 35.0 L MCV 87.3 MCH 29.2 MCHC 33.4 RDW Std Deviation 44.0 H RDW Coeff of Gilberto 13.8 Plt Count 204 MPV 9.9 Immature Gran % (Auto) 0.400 Neut % (Auto) 62.4 Lymph % (Auto) 26.7 [place] % (Auto) 7.5 Eos % (Auto) 2.7 Baso % (Auto) 0.3 Absolute Neuts (auto) 6.0 Absolute Lymphs (auto) 2.57 Nucleated RBC % 0 Sodium 137 Potassium 4.0 Chloride 102 Carbon Dioxide 29.0 Anion Gap 6 BUN 32 H Creatinine 0.90 Estim Creat Clear Calc 39.43 Est GFR (MDRD) Af Amer 77 Est GFR (MDRD) Non-Af 64 BUN/Creatinine Ratio 35.6 H Glucose 121 H Calcium 9.3 Discharge Plan Triage Chief Complaint: Lower Extremity Injury ED Provider: Jass Kaur Dx/Rx/DC Orders Clinical Impression: Swelling of right lower extremity, Essential hypertension, PAD (peripheral artery disease), Atherosclerosis of lower extremity with ulceration, Hyperlipidemia Instructions: ED Peripheral Edema, Unilateral Prescriptions: No Action folic acid 1 mg tablet 5 mg PO DAILY krill oil 500 mg capsule 300 mg PO DAILY metoprolol tartrate 25 mg tablet 75 mg PO BID vitamin E mixed 400 unit capsule 400 unit PO DAILY multivitamin [Daily Multi-Vitamin] Tablet 1 tab PO DAILY vitamin B complex Tablet 1 tab PO DAILY potassium chloride 20 MEQ tablet 20 meq PO BID cholecalciferol (vitamin D3) 25 mcg (1,000 unit) tablet 1,000 unit PO BID magnesium oxide 400 mg (241.3 mg magnesium) tablet 400 mg PO BID flecainide 100 mg tablet 100 mg PO BID amlodipine 2.5 mg tablet 2.5 mg PO DAILY Label Comments: TAKE 1 TABLET BY MOUTH TWICE DAILY clopidogrel [Plavix] 75 mg tablet 75 mg PO DAILY Qty: 90 1RF oxycodone 5 mg Tablet 5 mg PO Q8H PRN (Reason: Pain Score 4-10) 5 Days Qty: 15 0RF Primary Care Provider: Diana Saravia Referrals: Diana Saravia MD [Primary Care Provider] - Anibal García MD [Med Staff - Active Staff] - Disposition Disposition: Home, Self Care
[2022-09-20 22:46] LABS: Absolute Lymphocyte Count 2.57 X10^3/uL (0.83-4.51); Basophil# 0.03 X10^3/uL; Basophil% 0.3 % (0-1); Eosinophil# 0.26 X10^3/uL; Eosinophils% 2.7 % (0-5); Hemoglobin 11.7 g/dL (12.0-15.0); Lymphocyte # 2.57 X10^3/ul (0.83-4.51); Lymphocyte % 26.7 % (19-41); Mean Corp Hgb Conc 33.4 g/dL (32-36); Mean Corpuscular Hgb 29.2 pg (27.0-32.0); Mean Corpuscular Volume 87.3 fL (81-99); Mean Platelet Vol. 9.9 fl (6.2-12.0); Monocyte# 0.72 X10^3/uL; Monocyte% 7.5 % (0-10); NRBC Flagged by Analyzer 0 % (0-5); Neutrophil # 5.99 X10^3/uL (2.7-7.7); Neutrophil % 62.4 % (47-70); Platelet Count 204 K/mm3 (150-450); RBC Distribution Width CV 13.8 % (11.6-14.6); Red Blood Count 4.01 M/mm3 (4.2-5.4); White Blood Count 9.6 K/mm3 (4.4-11.0)
[2022-09-20 23:02] LABS: Anion Gap 6 (5-15); BUN 32 mg/dL (7-18); BUN/Creat Ratio 35.6 RATIO (10-20); Calcium,Total 9.3 mg/dL (8.5-10.1); Chloride 102 mmol/L (98-107); EST Glomerular Filtration Rate 64 mL/min (>60); Est Glom Filt Rate - Afr Amer 77 mL/min (>60); Estimated Creatinine Clearance 39.43 ml/min; Glucose 121 mg/dL (74-106); Sodium Level 137 mmol/L (136-145)
[2022-09-21] MEDS: APIXABAN 5 MG TABLET 10 MG PO (00:24)
== END 2022-09-21 00:34 | disposition home or self-care (01) ==
PROVIDERS: Emergency Provider Emergency Medicine; PCP Internal Medicine; Visit Provider Emergency Medicine
DX: I70.231 Atherosclerosis of native arteries of right leg with ulceration of thigh (principal); I48.0 Paroxysmal atrial fibrillation; M79.89 Other specified soft tissue disorders; Z87.891 Personal history of nicotine dependence; E78.5 Hyperlipidemia, unspecified; N18.9 Chronic kidney disease, unspecified; I12.9 Hypertensive chronic kidney disease with stage 1 through stage 4 chronic kidney disease, or unspecified chronic kidney disease; Z79.899 Other long term (current) drug therapy; Z79.01 Long term (current) use of anticoagulants; Z95.0 Presence of cardiac pacemaker; Z95.5 Presence of coronary angioplasty implant and graft
CPT/HCPCS: 80048; 85025; 99284

== ENCOUNTER → 2022-09-21 | Outpatient (CLI) | payer MEDICARE, SELFPAY ==
--- NOTE | 2022-09-21 10:54 | VDLE_ITS ---
Reason For Study: Bilateral leg pain RIGHT LEFT GSV is normal. GSV is normal. CFV is compressible, spontaneous, phasic, CFV is compressible, spontaneous, phasic, competent and demonstrates normal competent, and demonstrates normal augmentation. augmentation. FV is compressible, spontaneous, phasic, FV is compressible, spontaneous, phasic, competent and demonstrates normal competent and demonstrates normal augmentation. augmentation. POP V is compressible, spontaneous, phasic, POP V is compressible, spontaneous, phasic, competent and demonstrates normal competent and demonstrates normal augmentation. augmentation. T/P Trunk is compressible. T/P Trunk is compressible. PTV is compressible. PTV is compressible. RT PerV is compressible. LT PerV is compressible. Procedure This is a venous duplex using B-mode, color flow and spectral Doppler. Exam performed in department. A preliminary report was called and/or faxed to Dr. Saravia. VL/Venous Duplex US - Erick Extrem Interpretation Summary Deep veins of the bilateral lower extremities are patent and compressible segme ntally. There is no evidence of bilateral lower extremity deep vein thrombosis. The bilateral great saphenous veins appear patent and compressible segmentally. Ordering Physician: Jass Kaur Referring Physician: Diana Saravia Performed By: Tete Bah, VANITA, RVT
== END | disposition home or self-care (01) ==
LOC: CVS 10:53
PROVIDERS: PCP Internal Medicine; Referring Provider Emergency Medicine; Visit Provider Emergency Medicine
DX: M79.604 Pain in right leg (principal)
CPT/HCPCS: 93970

== ENCOUNTER 2022-09-22 13:02 | Outpatient (RCR) | payer MEDICARE, SELFPAY | END 2022-10-16 23:59 | LOC: NS 13:02 | PROVIDERS: PCP Internal Medicine; Referring Provider Physician Assistant; Visit Provider Physician Assistant | DX: Z71.3 Dietary counseling and surveillance (principal); L89.890 Pressure ulcer of other site, unstageable; M06.9 Rheumatoid arthritis, unspecified; I73.9 Peripheral vascular disease, unspecified; N18.30 Chronic kidney disease, stage 3 unspecified; E78.5 Hyperlipidemia, unspecified; M85.80 Other specified disorders of bone density and structure, unspecified site | CPT/HCPCS: 97803 ==

== ENCOUNTER → 2022-09-29 | Outpatient (CLI) | payer MEDICARE, SELFPAY ==
--- NOTE | 2022-09-29 13:57 | ADUL_ITS ---
Reason For Study: PVD Right Velocities Common Iliac Artery, mid = 163.0 cm./sec. Ext. Iliac Artery, dist = 25.8 cm./sec. Common Femoral Artery, mid = 43.7 cm./sec. Supf Femoral Artery, prox = 152.1 cm./sec. Supf Femoral Artery, mid = 165.3 cm./sec. Supf Femoral Artery, dist. = 360.4 cm./sec. Profunda Femoral Artery = 78.4 cm./sec. Popliteal Artery, mid = 70.4 cm./sec. Ant. Tibial Artery, prox = 67.9 cm./sec. Ant. Tibial Artery, mid = 112.1 cm./sec. Ant. Tibial Artery, dist = 85.1 cm./sec. Post. Tibial Artery, prox = 54.4 cm./sec. Post. Tibial Artery, mid = 49.5 cm./sec. Post. Tibial Artery, dist = 63.0 cm./sec. Peroneal Artery, prox = 58.1 cm./sec. Peroneal Artery, mid = 85.1 cm./sec. Peroneal Artery,dist = 91.2 cm./sec. Procedure The exam was diagnostic. /US Art Duplex Unilat Lower Ext Interpretation Summary Patent right lower extremity arteries with distal SFA stenosis Ordering Physician: Concepcion Navarro Referring Physician: Concepcion Navarro Performed By: Rey Sánchez RVT
--- NOTE | 2022-09-29 13:57 | ART_ITS ---
Reason For Study: PVD Procedure A bilateral lower extremity continuous wave Doppler with analog waveform analysis,segmental pressures,and ankle brachial indexes without exercise. Left Segmental Pressures Left brachial= 149mmHg. Left thigh = 95mmHg. Left calf = 75mmHg. Left posterior tibial artery = 74mmHg. Left dorsalis pedis artery = 71mmHg. Left digit = 49 mmHg. The left dorsalis pedis waveforms are monophasic. The left posterior tibial artery waveforms are monophasic. Right Segmental Pressures Right brachial= 144mmHg. Right thigh = 198mmHg. Right calf = 141mmHg. Right posterior tibial artery = 102mmHg. Right dorsalis pedis artery = 110mmHg. The right dorsalis pedis waveforms are biphasic. The right posterior tibial artery waveforms are biphasic. Indices The right ankle brachial index by the dorsalis pedis is .74. The right ankle brachial index by the posterior tibial artery is .68. The left ankle brachial index by the posterior tibial artery is .5. The left ankle brachial index by the dorsalis pedis is .48. The left digital-brachial index is .33. VL/Lower Ext Art Exam w/o Exercis Interpretation Summary Right DAPHNE 0.74, moderate arterial insufficiency. Doppler/PVR waveforms and segm ental pressures reveal distal SFA/popliteal, infrapopliteal disease. No right lower extremity digit pressure/waveforms due to dressings. Left DAPHNE 0.5, severe arterial insufficiency. Doppler/PVR waveforms and segmenta l pressures reveal [id number] femoral, distal SFA/popliteal disease Ordering Physician: Concepcion Ramirez Referring Physician: Concepcion Navarro Performed By: Rey Sánchez RVT
== END | disposition home or self-care (01) ==
LOC: CVS 13:56
PROVIDERS: PCP Internal Medicine; Referring Provider Physician Assistant; Visit Provider Physician Assistant
DX: I70.25 Atherosclerosis of native arteries of other extremities with ulceration (principal); Z48.812 Encounter for surgical aftercare following surgery on the circulatory system
CPT/HCPCS: 93923; 93926

== ENCOUNTER → 2023-01-22 | Outpatient (CLI) | payer MEDICARE, SELFPAY ==
--- NOTE | 2023-01-22 06:22 | ECHOD_ITS ---
Reason For Study: Abn EKG Procedure This was a 2D Doppler, Color Flow transthoracic echocardiogram. Exam performed in department. Left Ventricle Normal LV size. Left ventricular systolic function is normal. The estimated ejection fraction is 60 %. No regional wall motion abnormalities noted. Right Ventricle Normal RV size. Normal systolic function. Atria Normal left atrium. Normal right atrium. Mitral Valve Normal mitral valve. Mild (1+) eccentric mitral valve insufficiency. Tricuspid Valve Normal tricuspid valve. Mild (1+) tricuspid valve insufficiency. Aortic Valve Trisinus/trileaflet aortic valve. Mild (1+) aortic valve insufficiency. Pulmonic Valve Normal pulmonic valve. Great Vessels Normal aortic root. The pulmonary artery is normal size. Normal inferior vena cava. Pericardium/Pleural No pericardial effusion. MMode/2D Measurements & Calculations LVIDd: 4.4 cm IVSd: 1.0 cm Ao root diam: 3.1 cm LVIDs: 3.2 cm LVPWd: 0.95 cm RVDd: 3.5 cm FS: 27.7 % LAV(MOD-bp): 36.3 ml LVAd ap4: 22.5 cm2 SV(MOD-sp4): 36.3 ml LAV(MOD-bp) Indexed: 21.5 ml/m2 LVLd ap4: 7.1 cm LAV(MOD-sp2): 32.9 ml EDV(MOD-sp4): 59.4 ml LAV(MOD-sp4): 37.7 ml EDV(sp4-el): 60.2 ml LVAs ap4: 12.8 cm2 LVLs ap4: 6.0 cm ESV(MOD-sp4): 23.1 ml ESV(sp4-el): 23.2 ml EF(MOD-sp4): 61.2 % EF(sp4-el): 61.5 % SV(sp4-el): 37.1 ml LA A4 area: 15.3 cm2 LA dimension(2D): 3.9 cm RA A4 area: 13.0 cm2 TAPSE: 2.4 cm Time Measurements MV dec time: 0.17 sec Doppler Measurements & Calculations MV E max floyd: 80.5 cm/sec Lat Peak E' Floyd: 8.9 cm/sec Med Peak E' Floyd: 6.5 cm/sec MV A max floyd: 81.9 cm/sec E/E' lat: 9.1 E/E' med: 12.5 MV E/A: 0.98 Ao V2 max: 130.0 cm/sec AI max floyd: 355.5 cm/sec MV dec slope: 492.9 cm/sec2 Ao max P.8 mmHg AI max P.6 mmHg Ao V2 mean: 96.8 cm/sec Ao mean P.0 mmHg AI dec slope: 175.2 cm/sec2 Ao V2 VTI: 35.0 cm AI P1/2t: 594.4 msec AV (velocity ratio): 0.75 LV V1 max: 109.2 cm/sec PA V2 max: 71.8 cm/sec PI end-d floyd: 137.7 cm/sec LV V1 max P.8 mmHg LV V1 mean P.7 mmHg LV V1 mean: 78.0 cm/sec LV V1 VTI: 26.1 cm TR max floyd: 260.6 cm/sec TR max P.2 mmHg ECHO/Echo Complete Interpretation Summary Normal LV size. Left ventricular systolic function is normal. The estimated ejection fraction is 60 %. Mild (1+) aortic valve insufficiency. Mild (1+) tricuspid valve insufficiency. Ordering Physician: Shayy Bledsoe Referring Physician: Diana Saravia Performed By: Tete Bah, VANITA, RVT
--- NOTE | 2023-01-22 17:51 | STRESSREP ---
Stress Test Report Pharmacologic myocardial perfusion stress test. 82-year-old lady with a history of chest pain Resting EKG demonstrates sinus rhythm with a rate of 62 bpm. Resting blood pressure is 148/83 mmHg. 0.4 mg of regadenoson was infused per usual protocol followed by rapid intravenous saline flush injection. Continuous EKG monitoring was performed. The maximum heart rate was 65 bpm which was 46% of max impacted heart rate the maximum workload was 1 metabolic equivalent. At rest there were no ST or T wave changes noted to suggest ischemia and at peak infusion nonspecific ST changes were noted which did not meet the criteria for ischemia. No clinical angina is noted. The final blood pressure was 141/69 mmHg. Myocardial perfusion protocol. 11.9 mCi of technetium 99m sestamibi was injected at rest. 0.4 mg of regadenoson was infused per usual protocol. At peak infusion 34.5 mCi of technetium 99m sestamibi was injected stress images were obtained stress and rest images were reconstructed and compared in the short axis vertical long and horizontal long axis. Gated images were also obtained. Perfusion SPECT analysis: Review of the stress images demonstrate normal uptake of tracer noted in all areas of the myocardium. The resting images similar demonstrated normal uptake of tracer noted in all areas of the myocardium. No areas of reversibility are noted to suggest ischemia and no previous infarct is noted. Gated SPECT analysis: The gated ejection fraction is 61%. Conclusion: Normal pharmacologic myocardial perfusion stress test. Preserved ejection fraction.
== END | disposition home or self-care (01) ==
LOC: CVS 06:22
PROVIDERS: PCP Internal Medicine; Referring Provider Nurse Practitioner Gerontology; Visit Provider Nurse Practitioner Gerontology
DX: R94.31 Abnormal electrocardiogram [ECG] [EKG] (principal); I48.0 Paroxysmal atrial fibrillation; I34.1 Nonrheumatic mitral (valve) prolapse; Z95.0 Presence of cardiac pacemaker; I10 Essential (primary) hypertension; Z51.81 Encounter for therapeutic drug level monitoring; Z79.899 Other long term (current) drug therapy
CPT/HCPCS: 78452; 93017; 93306; A9500; A4216; J2785

== ENCOUNTER → 2023-03-15 | Outpatient (CLI) | payer MEDICARE, SELFPAY ==
--- NOTE | 2023-03-15 09:46 | ADUL_ITS ---
Reason For Study: S/P Rt Iliac Stents - Fem Endarterectomy Right Velocities Ext. Iliac Artery, dist = 91.5 cm./sec. Common Femoral Artery, mid = 172.2 cm./sec. Supf Femoral Artery, prox = 100.3 cm./sec. Supf Femoral Artery, mid = 98.4 cm./sec. Supf Femoral Artery, dist. = 287.9 cm./sec. Profunda Femoral Artery = 60.0 cm./sec. Popliteal Artery, mid = 106.3 cm./sec. Post. Tibial Artery, prox = 50.2 cm./sec. Post. Tibial Artery, mid = 28.1 cm./sec. Post. Tibial Artery, dist = 37.9 cm./sec. Peroneal Artery, prox = 23.5 cm./sec. Peroneal Artery, mid = 74.6 cm./sec. Peroneal Artery,dist = 60.3 cm./sec. Ant. Tibial Artery, prox = 38.4 cm./sec. Ant. Tibial Artery, mid = 32.9 cm./sec. Ant. Tibial Artery, dist = 68.0 cm./sec. /US Art Duplex Unilat Lower Ext Interpretation Summary Right lower extremity arteries patent with >50% stenosis of mid superficial fem oral artery Ordering Physician: Concepcion Maria Referring Physician: Diana Saravia M.D. Performed By: Hilario De Dios, RVT
--- NOTE | 2023-03-15 09:46 | ART_ITS ---
Reason For Study: S/P Rt Iliac Stents - Fem Endarterectomy Procedure A bilateral lower extremity continuous wave Doppler with analog waveform analysis,segmental pressures,and ankle brachial indexes without exercise. Left Segmental Pressures Left brachial= 157mmHg. Left thigh = 101mmHg. Left calf = 95mmHg. Left posterior tibial artery = 94mmHg. Left dorsalis pedis artery = 85mmHg. Left digit = 61 mmHg. The left posterior tibial artery waveforms are monophasic. The left dorsalis pedis waveforms are biphasic. Right Segmental Pressures Did not obtain Rt Brachial. Patient requested only Lt used due to Rt arm soreness. Right posterior tibial artery = 175mmHg. Right dorsalis pedis artery = 160mmHg. Right digit = 70 mmHg. The right posterior tibial artery waveforms are biphasic. The right dorsalis pedis waveforms are biphasic. Indices The right ankle brachial index by the posterior tibial artery is 1.11. The right ankle brachial index by the dorsalis pedis is 1.02. The right digital-brachial index is 0.45. The left ankle brachial index by the posterior tibial artery is 0.60. The left ankle brachial index by the dorsalis pedis is 0.54. The left digital-brachial index is 0.39. VL/Lower Ext Art Exam w/o Exercis Interpretation Summary Right DAPHNE 1.11, normal. Doppler/PVR waveforms of the right leg mildly diminishe d at rest. TBI diminished, pedal/digit disease vs spasm Left DAPHNE 0.6, moderate arterial insufficiency. Doppler/PVR waveforms and segmen rachelle pressures reveal [id number] femoral disease Ordering Physician: Concepcion Maria Referring Physician: Diana Saravia M.D. Performed By: Hilario De Dios, RVT
== END | disposition home or self-care (01) ==
LOC: CVS 09:45
PROVIDERS: PCP Internal Medicine; Referring Provider Physician Assistant; Visit Provider Physician Assistant
DX: I73.9 Peripheral vascular disease, unspecified (principal); Z48.812 Encounter for surgical aftercare following surgery on the circulatory system
CPT/HCPCS: 93923; 93926

== ENCOUNTER → 2023-04-30 | Outpatient (CLI) | payer MEDICARE, SELFPAY ==
--- NOTE | 2023-04-30 09:01 | RDU_ITS ---
Reason For Study: S/P RRA Angioplasty Right Renal Artery Left Renal Artery Right renal artery ostium Left renal artery ostium 252.1/37.9 134.5/20.5 RSV/EDV. PSV/EDV. Right renal artery proximal Left renal artery proximal PSV/EDV 78.6/12.6 PSV/EDV. 245.2/24.1 . Right renal artery mid 103.0/16.7 Left renal artery mid 195.0/22.3 PSV/EDV. PSV/EDV . Right renal artery distal Left renal artery distal 207.1/22.1 111.6/14.5 PSV/EDV. PSV/EDV. Right RAR 2.0. Left RAR 3.76. Right Renal Parenchyma Left Renal Parenchyma Upper Pole Medula 23.9/4.9 PSV/EDV. Left upper pole medulla 27.0/6.0 Right upper pole medulla EDR 0.20 . PSV/EDV . Right upper pole medulla R.I. Left upper pole medulla EDR 0.20 . 0.80 . Left upper pole medulla R.I. 0.78 . Upper Chuckie Cortx 16.5/4.9 PSV/EDV. UP Cortex 23.4/5.1 PSV/EDV. Right upper pole cortex EDR 0.30 . Left upper pole cortex EDR 0.20 . Right upper pole cortex R.I. 0.71 . Left upper pole cortex R.I. 0.78 . Right lower Pole medulla 22.0/4.9 Left lower Pole medulla 26.1/6.0 PSV/EDV . PSV/EDV . Right lower pole medulla EDR 0.20 . Left lower pole medulla EDR 0.20 . Right lower pole medulla R.I. Left lower pole medulla R.I. 0.77 . 0.78 . Lower Pole Cortx 20.6/4.2 PSV/EDV. Lower Pole Cortex 19.6/4.9 PSV/EDV. Left lower pole cortex EDR 0.20 . Right lower pole cortex EDR 0.20 . Left lower pole cortex R.I. 0.80 . Right lower pole cortex R.I. 0.75 . Left Renal Hilar Right Renal Hilar LT Hilar avg 46.9/9.1 PSV/EDV . Right Hilar avg 69.2/15.0 PSV/EDV. Left hilar acceleration time 40 Right hilar acceleration time 60 m/sec. m/sec. Left Renal Dimensions Right Renal Dimensions Left kidney size 10.39 cm . Right kidney size 7.45 cm . Left cortical dimension 1.25 cm . Right cortical dimension 0.92 cm . Aorta Proximal abdominal aorta 2.52 x 2.52 cm . Proximal abdominal aorta peak systolic velocity is 51.5 cm/sec . Distal abdominal aorta 1.75 x 1.74 cm . Distal abdominal aorta peak systolic velocity is 67.1 cm/sec . Heterogenous irregular plaque is noted throughout the vessel. Procedures Bilateral Renal Artery Duplex with Color and Pulsed Wave Doppler. Technically difficult study due to patient anatomy. VL/Renal Artery Duplex Ultrasound Interpretation Summary Right renal artery patent with normal velocities and no evidence of stenosis. Left renal artery patent with >60% stenosis. Right renal vein patent Left renal vein patent Right kidney diminished in size Left kidney normal in size Ordering Physician: Concepcion Maria Referring Physician: Diana Saravia M.D. Performed By: Hilario De Dios RVT
== END | disposition home or self-care (01) ==
LOC: CVS 09:00
PROVIDERS: PCP Internal Medicine; Referring Provider Physician Assistant; Visit Provider Physician Assistant
DX: I10 Essential (primary) hypertension (principal); I70.1 Atherosclerosis of renal artery; Z48.812 Encounter for surgical aftercare following surgery on the circulatory system
CPT/HCPCS: 93975

== ENCOUNTER 2023-05-06 19:38 | Emergency (ER) | payer MEDICARE, SELFPAY ==
[2023-05-06 19:40] VITALS: BP 204/69; PULSE 63; RESP 14; TEMP 37.6; O2SAT 93; BMI 28.5
--- NOTE | 2023-05-06 19:45 | CT_ITS ---
EXAM: CT HEAD WITHOUT INTRAVENOUS CONTRAST CLINICAL INDICATION: altered mental status TECHNIQUE: Multiple axial images were obtained of the head without intravenous contrast. This CT exam was performed using one or more of the following dose reduction techniques: automated exposure control, adjustment of the mA and/or kV according to patient size, and/or use of iterative reconstruction technique. COMPARISON: Skull radiographs, 02/03/2019 FINDINGS: BRAIN AND EXTRA-AXIAL SPACES: Mild ex vacuo enlargement of the supratentorial ventricles secondary to global parenchymal volume loss. There is non-specific periventricular hypoattenuation which is most commonly related to chronic microvascular ischemic disease in a patient of this age. There is no mass, mass-effect, or shift of the midline structures. No evidence of acute infarct or acute intracranial hemorrhage. There is no evidence of pathologic extra-axial fluid. There is no hydrocephalus. Patent basal cisterns. BONES/JOINTS: No significant abnormality. No discrete lytic or blastic abnormalities. VASCULATURE: Arteriosclerosis. SINUSES: Mucosal thickening in the paranasal sinuses and evidence of prior functional endoscopic sinus surgery. Mucoperiosteal thickening. MASTOID AIR CELLS: No significant effusion. ORBITS: No acute findings. CT/Brain/Head without Contrast IMPRESSION: 1. Chronic ischemic changes. No CT evidence of acute intracranial pathology. 2. Sinonasal disease. Correlate for associated symptoms. Electronically Signed: Horacio Whatley DO at 20:58 EST ,
--- NOTE | 2023-05-06 19:45 | EKG12_ITS ---
Test Reason : DYSRHYTHMIA Blood Pressure : / mmHG Vent. Rate : 060 BPM Atrial Rate : 060 BPM P-R Int : 266 ms QRS Dur : 128 ms QT Int : 498 ms P-R-T Axes : 096 -35 053 degrees QTc Int : 498 ms Atrial-paced rhythm with prolonged AV conduction Left axis deviation Non-specific intra-ventricular conduction block Minimal voltage criteria for LVH, may be normal variant ( [place] product ) Cannot rule out Septal infarct , age undetermined Abnormal ECG Confirmed by REN NUNEZ, RAFAEL ([id number]), editor producer SANIYA LEO ([id number]) on 05/07/2023 10:27:44 AM Referred By: PL Confirmed By:RAFAEL MCCLURE MD
[2023-05-06 19:46] VITALS: BP 191/72
[2023-05-06] MEDS: 0.9% Normal Saline (1000mL) 1,000 ML 1000 ML IV (19:56)
[2023-05-06 20:26] LABS: AST(SGOT) 27 U/L (15-37); Alanine Aminotransfer ALT/SGPT 34 U/L (13-56); Albumin, Serum 4.5 g/dL (3.2-5.0); Alkaline Phosphatase 111 U/L (45-117); Anion Gap 8 (5-15); BUN 14 mg/dL (7-18); BUN/Creat Ratio 11.7 RATIO (10-20); Calcium,Total 10.5 mg/dL (8.5-10.1); Chloride 99 mmol/L (98-107); EST Glomerular Filtration Rate 46 mL/min (>60); Est Glom Filt Rate - Afr Amer 55 mL/min (>60); Estimated Creatinine Clearance 33.91 ml/min; Globulin 4.5 g/dL (2.2-4.2); Glucose 153 mg/dL (74-106); Potassium 3.6 mmol/L (3.5-5.1); Sodium Level 133 mmol/L (136-145); Troponin-I HS 12 pg/mL (3.0-54.0)
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
--- NOTE | 2023-05-06 20:40 | RAD_ITS ---
EXAM: XR CHEST, 1 VIEW CLINICAL INDICATION: altered mental status TECHNIQUE: Frontal view of the chest. COMPARISON: 05/01/2021 FINDINGS: LUNGS AND PLEURAL SPACES: Right apical calcification similar to the prior examination. No pneumothorax. No effusion. HEART: No significant abnormality. Cardiac silhouette not enlarged. MEDIASTINUM: Central airways and mediastinal contour are unremarkable. BONES/JOINTS: Degenerative changes in the spine. Postoperative changes at the left shoulder. No acute fracture. SOFT TISSUES: No significant abnormality. VASCULATURE: Atherosclerosis. TUBES, LINES AND DEVICES: Left-sided cardiac pacer. RAD/Chest 1 View (Portable) IMPRESSION: Right apical calcification similar to the prior examination. No acute pathology in the chest. Electronically Signed: Horacio Whatley DO at 20:59 EST ,
[2023-05-06 20:45] LABS: Absolute Lymphocyte Count 0.93 X10^3/uL (0.83-4.51); Absolute Neutrophil Count 4.7 X10^3/uL (2.0-7.7); Basophil# 0.02 X10^3/uL; Basophil% 0.3 % (0-1); Eosinophil# 0.01 X10^3/uL; Eosinophils% 0.2 % (0-5); Hematocrit 35.1 % (37-47); Hemoglobin 11.6 g/dL (12.0-15.0); Lymphocyte # 0.93 X10^3/ul (0.83-4.51); Mean Corpuscular Hgb 28.8 pg (27.0-32.0); Mean Corpuscular Volume 87.1 fL (81-99); Mean Platelet Vol. 8.8 fl (6.2-12.0); Monocyte# 0.57 X10^3/uL; Monocyte% 9.2 % (0-10); NRBC Flagged by Analyzer 0 % (0-5); Neutrophil # 4.66 X10^3/uL (2.7-7.7); Platelet Count 148 K/mm3 (150-450); RBC Distribution Width SD 41.1 fl (35.1-43.9); Red Blood Count 4.03 M/mm3 (4.2-5.4); White Blood Count 6.2 K/mm3 (4.4-11.0)
[2023-05-06 21:00] VITALS: BP 172/66; PULSE 83; RESP 16; O2SAT 95
[2023-05-06 21:20] LABS: Bacteria 0 SEEN /hpf (None Seen); Mucous, Urine 0 SEEN /hpf (<or=2+)
[2023-05-06 21:21] LABS: Color, Urine Yellow (Yellow); Glucose, Dipstick Normal (Normal); Ketone-Dipstick Negative (Negative); Leukocyte Esterase-Dipstick Negative /ul (Negative); Nitrite-Dipstick Negative (Negative); Occult Blood-Urine 10 /ul (Negative); Protein-Dipstick 100 mg/dl (Negative); Urine Bilirubin Dipstick Negative (Negative); Urine Clarity Clear (Clear); Urine Urobilinogen Normal (Normal)
[2023-05-06 21:28] LABS: Squamous Epithelial Cells - UA 0-5 SEEN /hpf (5-10); White Blood Cells 0-5 SEEN /hpf (0-5)
[2023-05-06 21:29] LABS: Red Blood Cells-Urine 0-5 SEEN /hpf (0-5)
[2023-05-06 22:00] VITALS: BP 129/110; PULSE 60; RESP 16; O2SAT 92
== END 2023-05-06 22:36 | disposition home or self-care (01) ==
PROVIDERS: Surgery Trauma Surgery; Emergency Provider Student in an Organized Health Care Education/Training Program; PCP Internal Medicine; Visit Provider Student in an Organized Health Care Education/Training Program
DX: U07.1 COVID-19 (principal); I48.0 Paroxysmal atrial fibrillation; Z87.891 Personal history of nicotine dependence; R41.82 Altered mental status, unspecified; T42.8X5A Adverse effect of antiparkinsonism drugs and other central muscle-tone depressants, initial encounter; I25.10 Atherosclerotic heart disease of native coronary artery without angina pectoris; I12.9 Hypertensive chronic kidney disease with stage 1 through stage 4 chronic kidney disease, or unspecified chronic kidney disease; N18.9 Chronic kidney disease, unspecified; E78.00 Pure hypercholesterolemia, unspecified; Z79.899 Other long term (current) drug therapy; Z79.02 Long term (current) use of antithrombotics/antiplatelets; Z95.0 Presence of cardiac pacemaker
CPT/HCPCS: 70450; 71045; 80053; 81001; 84484; 85025; 87086; 87631; 93005; 96360; 99285; J7030; A4216

== ENCOUNTER → 2023-07-09 | Outpatient (CLI) | payer MEDICARE, SELFPAY ==
--- NOTE | 2023-07-09 12:21 | BI_ITS ---
MAMMOGRAPHY - BILATERAL SCREENING REASON FOR EXAM: Female, 82 years old. Routine annual screening examination. PERTINENT HISTORY: Non-contributory. TECHNIQUE: Digital bilateral breast hannah (3D mammographic acquisition) in the CC and MLO projections. 2-D mediolateral oblique (MLO) and craniocaudad (CC) views of both breasts were obtained. CAD: Full Field Digital Mammography with Computer Added Detection was performed. COMPARISON: Comparison is made with prior study dated June 12, 2022 and June 10, 2021. FINDINGS: Breast Composition: There are scattered areas of fibroglandular density. There are no dominant masses or suspicious calcifications. A battery pack from a pacemaker is once again seen in the left axilla. No other significant abnormalities are identified. There has been no significant change since the prior study. BI/SCRN MAMM (CAD)W/HANNAH BILAT IMPRESSION: Stable bilateral screening mammogram. Yearly follow-up mammogram recommended. (A) ASSESSMENT CATEGORY: BIRADS Category 2: Benign. A letter regarding these results will be sent to the patient by the facility within 30 days. Approximately 10% of breast cancers are not detected by mammography. A normal mammogram should not delay biopsy of a clinically suspicious abnormality. [id number] Electronically Signed: Archie Caceres MD at 13:30 EDT ,
== END | disposition home or self-care (01) ==
LOC: OPBI 12:20
PROVIDERS: PCP Internal Medicine; Referring Provider Internal Medicine; Visit Provider Internal Medicine
DX: Z12.31 Encounter for screening mammogram for malignant neoplasm of breast (principal)
CPT/HCPCS: 77063; 77067

== ENCOUNTER → 2023-09-29 | Outpatient (CLI) | payer MEDICARE, SELFPAY ==
--- NOTE | 2023-09-29 09:52 | ADUL_ITS ---
Reason For Study: HX Rt Iliac Stent / Fem Endart Right Velocities Ext. Iliac Artery, dist = 149.1 cm./sec. Common Femoral Artery, mid = 103.0 cm./sec. Supf Femoral Artery, prox = 219.5 cm./sec. Supf Femoral Artery, mid = 148.4 cm./sec. Supf Femoral Artery, dist. = 83.8 cm./sec. Profunda Femoral Artery = 76.5 cm./sec. Popliteal Artery, mid = 50.2 cm./sec. Post. Tibial Artery, prox = 133.7 cm./sec. Post. Tibial Artery, mid = 31.3 cm./sec. Post. Tibial Artery, dist = 42.7 cm./sec. Peroneal Artery, prox = 66.9 cm./sec. Peroneal Artery, mid = 87.5 cm./sec. Peroneal Artery,dist = 85.7 cm./sec. Ant. Tibial Artery, prox = 36.2 cm./sec. Ant. Tibial Artery, mid = 28.7 cm./sec. Ant. Tibial Artery, dist = 27.0 cm./sec. Procedure The exam was diagnostic. Exam performed in department. /US Art Duplex Unilat Lower Ext Interpretation Summary Right lower extremity arteries patent, mid SFA stenosis. Ordering Physician: Concepcion Maria Referring Physician: Diana Saravia M.D. Performed By: Hilario De Dios RVT and Student
--- NOTE | 2023-09-29 09:52 | ART_ITS ---
Reason For Study: HX Rt Iliac Stent / Fem Endart Procedure A bilateral lower extremity continuous wave Doppler with analog waveform analysis and ankle brachial indexes. Left Segmental Pressures Left brachial= 143mmHg. Left posterior tibial artery = 80mmHg. Left dorsalis pedis artery = 81mmHg. Left digit = 43 mmHg. The left posterior tibial artery waveforms are monophasic. The left dorsalis pedis waveforms are monophasic. Right Segmental Pressures Right brachial= 138mmHg. Right posterior tibial artery = 139mmHg. Right dorsalis pedis artery = 129mmHg. Right digit = 50 mmHg. The right posterior tibial artery waveforms are biphasic. The right dorsalis pedis waveforms are biphasic. Indices The right ankle brachial index by the posterior tibial artery is 0.97. The right ankle brachial index by the dorsalis pedis is 0.90. The right digital-brachial index is 0.35. The left ankle brachial index by the posterior tibial artery is 0.56. The left ankle brachial index by the dorsalis pedis is 0.57. The left digital-brachial index is 0.30. VL/Ankle Brachial Index Interpretation Summary Right DAPHNE 0.97, mild arterial insufficiency. Doppler/PVR waveforms of the right ankle mildly diminished at rest. Left DAPHNE 0.57, moderate arterial insufficiency. Doppler/PVR waveforms of the le ft ankle moderately diminished at rest. Ordering Physician: Concepcion Maria Referring Physician: Diana Saravia Performed By: Hilario De Dios RVT and Student
== END | disposition home or self-care (01) ==
LOC: CVS 09:52
PROVIDERS: PCP Internal Medicine; Visit Provider Physician Assistant
DX: Z48.812 Encounter for surgical aftercare following surgery on the circulatory system (principal); I70.235 Atherosclerosis of native arteries of right leg with ulceration of other part of foot
CPT/HCPCS: 93922; 93926

== ENCOUNTER → 2024-04-07 | Outpatient (CLI) | payer MEDICARE, SELFPAY ==
--- NOTE | 2024-04-07 08:46 | RDU_ITS ---
Reason For Study: Renal artery stenosis, s/p coil embolization of right renal artery Right Renal Artery Left Renal Artery Right renal artery ostium Left renal artery ostium 212.2/34.3 161.7/12.6 RSV/EDV. PSV/EDV. Right renal artery proximal Left renal artery proximal PSV/EDV 111.9/8.3 PSV/EDV. 234.8/34.3 . Right renal artery mid 99/29 Left renal artery mid 157.2/24.6 PSV/EDV. PSV/EDV . Right renal artery distal Left renal artery distal 112.8/17.6 119.7/21.3 PSV/EDV. PSV/EDV. Right RAR 2.01. Left RAR 2.91. Right Renal Parenchyma Left Renal Parenchyma Upper Pole Medula 23.6/4.2 PSV/EDV. Left upper pole medulla 34.1/9.6 Right upper pole medulla EDR 0.2 . PSV/EDV . Right upper pole medulla R.I. Left upper pole medulla EDR 0.3 . 0.82 . Left upper pole medulla R.I. 0.72 . Upper Chuckie Cortx 7/2.3 PSV/EDV. UP Cortex 15.7/4.7 PSV/EDV. Right upper pole cortex EDR 0.3 . Left upper pole cortex EDR 0.3 . Right upper pole cortex R.I. 0.67 . Left upper pole cortex R.I. 0.70 . Right lower Pole medulla 15.1/3.3 Left lower Pole medulla 42.7/8.4 PSV/EDV . PSV/EDV . Right lower pole medulla EDR 0.2 . Left lower pole medulla EDR 0.2 . Right lower pole medulla R.I. Left lower pole medulla R.I. 0.80 . 0.78 . Lower Pole Cortx 18.8/4.1 PSV/EDV. Lower Pole Cortex 10.3/5.1 PSV/EDV. Left lower pole cortex EDR 0.2 . Right lower pole cortex EDR 0.50 . Left lower pole cortex R.I. 0.78 . Right lower pole cortex R.I. 0.50 . Left Renal Hilar Right Renal Hilar LT Hilar avg 82.4/15 PSV/EDV . Right Hilar avg 42.8/9 PSV/EDV. Left hilar acceleration time 50 Right hilar acceleration time 80 m/sec. m/sec. Left Renal Dimensions Right Renal Dimensions Left kidney size 10.54 cm . Right kidney size 6.82 cm . Left cortical dimension 1.35 cm . Right cortical dimension 0.97 cm . Aorta Proximal abdominal aorta 2.18 x 2.11 cm . Proximal abdominal aorta peak systolic velocity is 80.6 cm/sec . Distal abdominal aorta 1.89 x 1.89 cm . Distal abdominal aorta peak systolic velocity is 67.1 cm/sec . Procedures Technically difficult to visualize right kidney and right renal artery. VL/Renal Artery Duplex Ultrasound Interpretation Summary Left renal artery patent with < 60% stenosis. Left renal vein patent. Left kidney normal in size. Poor visualization of right renal artery/kidney. High resistance waveforms and normal velocities. Ordering Physician: Concepcion Maria Referring Physician: Diana Saravia M.D. Performed By: Josi Campbell RVT
== END | disposition home or self-care (01) ==
LOC: CVS 08:46
PROVIDERS: PCP Internal Medicine; Referring Provider Physician Assistant; Visit Provider Physician Assistant
DX: I70.1 Atherosclerosis of renal artery (principal)
CPT/HCPCS: 93975

== ENCOUNTER → 2024-07-20 | Outpatient (CLI) | payer MEDICARE, SELFPAY ==
--- NOTE | 2024-07-20 13:05 | BI_ITS ---
EXAM: SCRN MAMM (CAD)W/HANNAH BILAT DATE: 07/20/2024 CLINICAL HISTORY: F, Age 83 y/o , SCRN MAMM (CAD)W/HANNAH BILAT No family history. BREAST CANCER RISK ASSESSMENT: Not assessed. TECHNIQUE: Bilateral screening digital breast tomosynthesis with 2D and 3D images. Computer aided detection. COMPARISON: Prior exam(s) dated July 09, 2023.. FINDINGS: TISSUE DENSITY: The breast tissue is composed of scattered area of fibroglandular density. Bilateral Breast Mammographic Findings: No significant masses, calcifications or other abnormalities are identified. No suspicious masses, areas of developing architectural distortion, or suspicious calcifications. There has been no significant interval change. BI/SCRN MAMM (CAD)W/HANNAH BILAT IMPRESSION: Right Breast: BIRADS 1 NEGATIVE. Left Breast: BIRADS 1 NEGATIVE. OVERALL FINAL ASSESSMENT: BIRADS 1 NEGATIVE RECOMMENDATION: Routine annual follow-up in 1 Year A letter with findings and recommendations will be mailed to the patient. Reading Location: [place] [id number]
== END | disposition home or self-care (01) ==
LOC: OPBI 13:04
PROVIDERS: PCP Internal Medicine; Referring Provider Internal Medicine; Visit Provider Internal Medicine
DX: Z12.31 Encounter for screening mammogram for malignant neoplasm of breast (principal)
CPT/HCPCS: 77063; 77067

== ENCOUNTER → 2024-10-26 | Outpatient (CLI) | payer MEDICARE, SELFPAY ==
--- NOTE | 2024-10-26 09:48 | ART_ITS ---
Reason For Study Reason For Study: PVD Procedure A bilateral lower extremity continuous wave Doppler with analog waveform analysis,segmental pressures,and ankle brachial indexes with exercise. 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 Left Segmental Pressures Left brachial= 164mmHg. Left low thigh = 102mmHg. Left calf = 81mmHg. Left posterior tibial artery = 83mmHg. Left dorsalis pedis artery = 92mmHg. Left digit = 63 mmHg. The left dorsalis pedis waveforms are monophasic. The left posterior tibial artery waveforms are monophasic. Right Segmental Pressures Right brachial= 161mmHg. Right low thigh = 192mmHg. Right calf = 141mmHg. Right posterior tibial artery = 139mmHg. Right dorsalis pedis artery = 109mmHg. Right digit = 81 mmHg. The right dorsalis pedis waveforms are biphasic. The right posterior tibial artery waveforms are biphasic. Indices The right ankle brachial index by the dorsalis pedis is 0.66. The right ankle brachial index by the posterior tibial artery is 0.85. The right ankle brachial index by the posterior tibial artery post exercise is 0.95. The left ankle brachial index by the dorsalis pedis is 0.56. The left ankle brachial index by the posterior tibial artery is 0.51. The left dorsalis pedis index post exercise is 0.22. VL/Lower Ext Art Exam w/ Exercise Interpretation Summary Right DAPHNE 0.85, moderate arterial insufficiency. Doppler/PVR waveforms and segm ental pressures reveal distal SFA/popliteal disease. Right lower extremity exhibits normal response to exercise. Left DAPHNE 0.56, moderate arterial insufficiency. Doppler/PVR waveforms and segme ntal pressures reveal aorto-iliac- proximal femoral, distal SFA/popliteal disease. Left lower extremity with abnormal response to exercise and post exercise DAPHNE i n the severe category. Ordering Physician: Concepcion Maria Referring Physician: Diana Saravia M.D. Performed By: GABRIELA GROSS [facility]
== END | disposition home or self-care (01) ==
LOC: CVS 09:48
PROVIDERS: PCP Internal Medicine; Referring Provider Physician Assistant; Visit Provider Physician Assistant
DX: I70.209 Unspecified atherosclerosis of native arteries of extremities, unspecified extremity (principal); Z48.812 Encounter for surgical aftercare following surgery on the circulatory system
CPT/HCPCS: 93924

== ENCOUNTER → 2025-04-04 | Outpatient (CLI) | payer MEDICARE, SELFPAY ==
[2025-04-04 10:18] LABS: Hematocrit 43.3 % (37-47); Hemoglobin 14.5 g/dL (12.0-15.0); Immature Granulocytes Count 0.010 X10^3/uL (0.0-0.0); Mean Corp Hgb Conc 33.5 g/dL (32-36); Mean Corpuscular Volume 95.6 fL (81-99); Mean Platelet Vol. 9.5 fl (6.2-12.0); NRBC Flagged by Analyzer 0 % (0-5); Platelet Count 165 K/mm3 (150-450); RBC Distribution Width CV 12.6 % (11.6-14.6); RBC Distribution Width SD 44.8 fl (35.1-43.9); Red Blood Count 4.53 M/mm3 (4.2-5.4); White Blood Count 6.3 K/mm3 (4.4-11.0)
[2025-04-04 10:42] LABS: Creatinine, Urine (random) 56.30 mg/dL (28.00-217.00); Microalbumin,Random Urine 45.3 mg/L (<20 mg/L)
[2025-04-04 10:44] LABS: AST(SGOT) 29 U/L (<=31); Alanine Aminotransfer ALT/SGPT 29 U/L (<=34); Albumin, Serum 4.4 g/dL (3.4-4.8); Alkaline Phosphatase 86 U/L (35-104); Anion Gap 8 (5-15); BUN 16 mg/dL (4-19); BUN/Creat Ratio 14.8 RATIO (10-20); Calcium,Total 9.7 mg/dL (7.6-11.0); Carbon Dioxide 29.3 mmol/L (21.0-32.0); Chloride 102 mmol/L (98-108); Cholesterol 166 mg/dL (<=200); Globulin 2.4 g/dL (2.2-4.2); Glucose 132 mg/dL (70-99); Low Density Lipoprotein Calc. 83 mg/dL; Potassium 4.2 mmol/L (3.3-5.1); Triglycerides 247 mg/dL; Very Low Density Lipoprotein 49 mg/dL (5-40); cholesterol:hdl ratio screen 3.98
== END | disposition home or self-care (01) ==
LOC: CIMLAB 09:11
PROVIDERS: PCP Internal Medicine; Referring Provider Internal Medicine; Visit Provider Internal Medicine
DX: I10 Essential (primary) hypertension (principal)
CPT/HCPCS: 36415; 80053; 80061; 82043; 82570; 85025

== ENCOUNTER → 2025-04-13 | Outpatient (CLI) | payer MEDICARE, SELFPAY ==
--- NOTE | 2025-04-13 08:49 | RDU_ITS ---
Reason For Study Reason For Study: Renal artery stenosis, s/p coil embolization of right renal artery Right Renal Dimensions Left Renal Artery Right kidney size 5.44 cm . Left renal artery ostium 154.5/6.7 Right cortical dimension 0.78 cm . PSV/EDV. Technically difficult to visualie right Left renal artery proximal PSV/EDV kidney. Unable to detect flow within 102.6/0.0 . kidney. Left renal artery mid 88.9/16.0 PSV/EDV . Unable to visualize right renal artery. Left renal artery distal 79.7/9.3 PSV/EDV. Left RAR 2.11. Left Renal Parenchyma Left upper pole medulla 28.9/6.9 PSV/EDV . Left upper pole medulla EDR 0.2 . Left upper pole medulla R.I. 0.76 . UP Cortex 20.1/4.2 PSV/EDV. Left upper pole cortex EDR 0.2 . Left upper pole cortex R.I. 0.79 . Left lower Pole medulla 19.6/4.7 PSV/EDV . Left lower pole medulla EDR 0.2 . Left lower pole medulla R.I. 0.76 . Lower Pole Cortx 22.3/3.6 PSV/EDV. Left lower pole cortex EDR 0.2 . Left lower pole cortex R.I. 0.84 . Left Renal Hilar LT Hilar avg 61.1/10.4 PSV/EDV . Left hilar acceleration time 10 m/sec. Left Renal Dimensions Left kidney size 11.15 cm . Left cortical dimension 1.74 cm . Aorta Proximal abdominal aorta 1.54x2.02 cm . Proximal abdominal aorta peak systolic velocity is 73.2 cm/sec . Distal abdominal aorta 0.88x1.10 cm . Distal abdominal aorta peak systolic velocity is 232.2 cm/sec . VL/Renal Artery Duplex Ultrasound Interpretation Summary Left renal artery patent with normal velocities and no evidence of stenosis. Left renal vein patent. Left kidney normal in size. Right kidney diminished size with no flow detected. Ordering Physician: Concepcion Maria Referring Physician: Diana Saravia M.D. Performed By: Catina [facility]
== END | disposition home or self-care (01) ==
LOC: CVS 08:48
PROVIDERS: PCP Internal Medicine; Referring Provider Physician Assistant; Visit Provider Physician Assistant
DX: I48.91 Unspecified atrial fibrillation (principal)
CPT/HCPCS: 93975